=== PATIENT | female | born 1955 | race Caucasian/White ===

== ENCOUNTER → 2018-07-02 10:13 | Outpatient (CLI) | payer OTHER, SELFPAY ==
[2018-07-02 11:55] LABS: ALB/GLOB Ratio 0.9 RATIO (0.9-2.4); AST(SGOT) 22 U/L (15-37); Alanine Aminotransfer ALT/SGPT 24 U/L (13-56); Albumin, Serum 3.4 g/dL (3.2-5.0); Alkaline Phosphatase 51 U/L (45-117); Anion Gap 7 (5-15); BUN 18 mg/dL (7-18); BUN/Creat Ratio 22.8 RATIO (10-20); Chloride 102 mmol/L (98-107); Cholesterol 277 mg/dL (200); Creatinine, Serum 0.79 mg/dL (0.55-1.02); EST Glomerular Filtration Rate 78 mL/min (>60); Est Glom Filt Rate - Afr Amer 94 mL/min (>60); Globulin 3.8 g/dL (2.2-4.2); Glucose 93 mg/dL (74-106); High Density Lipoprotein 70 mg/dL; Potassium 3.7 mmol/L (3.5-5.1); Protein, Total 7.2 g/dL (6.4-8.2); Sodium Level 140 mmol/L (136-145); Triglycerides 112 mg/dL; Very Low Density Lipoprotein 22 mg/dL (5-40)
== END ==
PROVIDERS: Family Provider Family Medicine; PCP Family Medicine; Visit Provider Family Medicine
DX: I10 Essential (primary) hypertension (principal)
CPT/HCPCS: 36415; 80053; 80061

== ENCOUNTER → 2019-03-11 | Outpatient (CLI) | payer OTHER, SELFPAY ==
[2019-03-11 09:36] VITALS: BMI 34.4
[2019-03-11 12:56] LABS: AST(SGOT) 20 U/L (15-37); Alanine Aminotransfer ALT/SGPT 26 U/L (13-56); Albumin, Serum 3.5 g/dL (3.2-5.0); Alkaline Phosphatase 49 U/L (45-117); Anion Gap 6 (5-15); BUN 16 mg/dL (7-18); BUN/Creat Ratio 23.2 RATIO (10-20); Calcium,Total 9.4 mg/dL (8.5-10.1); Chloride 102 mmol/L (98-107); Cholesterol 255 mg/dL (200); Creatinine, Serum 0.69 mg/dL (0.55-1.02); EST Glomerular Filtration Rate 91 mL/min (>60); Est Glom Filt Rate - Afr Amer 110 mL/min (>60); Globulin 3.6 g/dL (2.2-4.2); Glucose 100 mg/dL (74-106); High Density Lipoprotein 69 mg/dL; Potassium 3.5 mmol/L (3.5-5.1); Protein, Total 7.1 g/dL (6.4-8.2); Sodium Level 139 mmol/L (136-145); Triglycerides 134 mg/dL; Very Low Density Lipoprotein 27 mg/dL (5-40)
[2019-03-14 12:49] LABS: HPV Reflexed? NOT INDICATED
== END | disposition home or self-care (01) ==
LOC: BIMLAB 10:06
PROVIDERS: Family Provider Family Medicine; PCP Family Medicine; Visit Provider Family Medicine
DX: I10 Essential (primary) hypertension (principal); Z01.419 Encounter for gynecological examination (general) (routine) without abnormal findings
CPT/HCPCS: 36415; 80053; 80061; 88175; G0145

== ENCOUNTER → 2019-04-02 | Outpatient (CLI) | payer OTHER, SELFPAY ==
[2019-03-11 09:36] VITALS: BMI 34.4
[2019-03-20 10:37] VITALS: BMI 33.3
--- NOTE | 2019-04-02 07:06 | BI_ITS ---
MAMMOGRAPHY - BILATERAL SCREENING REASON FOR EXAM: Female, 63 years old. Routine annual screening examination. PERTINENT HISTORY: Non-contributory. Remote right stereotactic breast biopsy. TECHNIQUE: Digital bilateral breast juan daniel (3D mammographic acquisition) in the CC and MLO projections. 2-D mediolateral oblique (MLO) and craniocaudad (CC) views of both breasts were obtained. CAD: Full Field Digital Mammography with Computer Added Detection was performed. COMPARISON: Comparison is made with prior outside examination dated August 06, 2017. FINDINGS: Breast Composition: The breasts are heterogeneously dense, which may obscure small masses. There are no dominant masses or suspicious calcifications. Stable scattered microcalcifications. No focal cluster is seen. A tissue clip marker is seen in the right breast. No other significant abnormalities are identified. BI/SCREEN MAMM (CAD) W/JUAN DANIEL BILAT IMPRESSION: Stable bilateral screening mammogram. Yearly follow-up mammogram recommended. (A) ASSESSMENT CATEGORY: BIRADS Category 2: Benign. A letter regarding these results will be sent to the patient by the facility within 30 days. Approximately 10% of breast cancers are not detected by mammography. A normal mammogram should not delay biopsy of a clinically suspicious abnormality. [id number] Electronically Signed: Dale Danielson, at 8:41 EDT , Service support ,
== END | disposition home or self-care (01) ==
PROVIDERS: Family Provider Family Medicine; PCP Family Medicine; Referring Provider Family Medicine; Visit Provider Family Medicine
DX: Z12.31 Encounter for screening mammogram for malignant neoplasm of breast (principal)
CPT/HCPCS: 77063; 77067

== ENCOUNTER 2019-04-15 07:25 | Day surgery (SDC) | payer OTHER, SELFPAY ==
[2019-03-20 10:37] VITALS: BMI 33.3
--- NOTE | 2019-03-20 10:48 | HP_ITS ---
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 Required: No Is patient in pain?: Yes (lower abdomen cramping) Pain scale (1-10): 2 Allergies No Known Allergies Allergy (Unverified 03/20/19 10:40) Medications lisinopril 20 mg-hydrochlorothiazide 12.5 mg tablet 1 tab PO QDAY #90 tab 03/11/19 [Rx Confirmed 03/20/19] tolterodine ER 4 mg capsule,extended release 24 hr 8 mg PO QDAY #180 cap 03/11/19 [Rx Confirmed 03/20/19] PFSH Medical History Mitral valve prolapse (Chronic) Chronic headaches (Chronic) Back problem (Chronic) Anemia (Chronic) Arthritis (Chronic) Hypertension (Chronic) Surgical History History of excision of pilonidal cyst (Acute) History of orthopedic surgery (Acute) Family History Father Prostate cancer Hypertension Mother Diabetes Colon cancer Hypertension Osteoarthritis Grandfather Heart disease Sister Lupus Fibromyalgia Social History Smoking Status: Never smoker alcohol intake: never substance use type: does not use what type of physical activity do you participate in: walking frequency: 3-4 times per week HPI HPI HPI: KATHY URIAS, is a 63 F who presents to the office today for HPI HPI Surgical H&P: Yes HPI: KATHY URIAS, is a 63 F who presents to the office today for screening colonoscopy. Patient states her last colonoscopy was in 2003 and it was negative. Patient's mother was diagnosed with colon cancer age 60. Patient states she has daily bowel movements states she only rarely has any minimal blood with wiping on toilet paper with her hemorrhoids. She states she also has been having some intermittent abdominal lower abdomen cramping which occurs several times a week may last for a couple of hours is only a 1?2/10 as far as discomfort, denies having the pain related to bowel movements or food. States she has had this for about the last 6 months. Patient has seen her [employer] STAFF has had a Pap smear which patient states is normal. Patient states she did have a history of colitis and states she had a stay away from CABG etc. for a little while but that was long time ago she had no issues since. Exam Const General: cooperative, comfortable, no acute distress Resp Effort & Inspection: normal respiratory effort Cardio Rate: regular rate GI Inspection: non-distended Palpation: soft, no guarding, nontender Assessment & Plan Problems 1. FH: colon cancer Z80.0 M dx age 59 Plan I have discussed the above with the patient. I have offered the patient colonoscopy for evaluation. I have explained the risks/benefits of the procedure and described the procedure. I have discussed the risks with the patient, including but not limited to: infection, bleeding, perforation of the GI tract requiring emergency surgery, inability to complete the procedure, injury to any internal organs, complications of anesthesia, etc. - the patient understands and agrees to proceed. I have answered all the patient's questions to the patient's satisfaction and the patient has no further questions. The patient has been given instructions for the colon cleansing preparation. 1 day MiraLAX Dulcolax split prep Lurdes Cormier M.D. Pager: [phone] [facility] [address] [place] [address], [facility], [address] [place] [address] Office: [phone] Orders Orders: Colonoscopy Today Plan Detail Follow Up We will schedule colonoscopy Coding Level of Care Code Off vis,new,level 3 Diagnoses FH: colon cancer Z80.0 03/20/19 1048 <Electronically signed by Lurdes Cano am, MD> Date _ Lurdes Cormier MD I have examined the patient the following changes are noted: Patient denies any abdominal pain or change of bowel movements since seen in the office.
[2019-04-15 07:41] VITALS: BP 156/82; PULSE 80; RESP 18; TEMP 36.7; O2SAT 99; BMI 33.6
[2019-04-15 08:41] VITALS: BP 130/61; BP 156/82; PULSE 73; RESP 16; TEMP 36.4; O2SAT 98
--- NOTE | 2019-04-15 08:43 | OP.ENDO_ITS ---
04/15/2019 Lex Mdasen Re : Colonoscopy procedure for Lyssa Vasquez Dear Dr. Madsen This procedure was performed on Monday, April 15, 2019. My impressions and recommendations are as follows: Impressions : - Hemorrhoids found on perianal exam. - Diverticulosis in the sigmoid colon. - External and internal hemorrhoids. - The examination was otherwise normal. - No specimens collected. Recommendations : - Discharge patient to home. - High fiber diet. - Continue present medications. - Repeat colonoscopy in 5 years for screening purposes due to FH of colon cancer- Mother at age 60. My findings are described in the full procedure note, which is enclosed. If I can be of further assistance, please feel free to contact me at Doctor phone number(s): , Work: . Sincerely, MD Lurdes Carrillo MD 04/15/2019 8:42:59 AM This report has been signed electronically.
[2019-04-15 08:45] VITALS: BP 137/66; BP 156/82; PULSE 72; RESP 16; O2SAT 99
[2019-04-15 08:50] VITALS: BP 133/75; BP 156/82; PULSE 70; RESP 16; O2SAT 98
[2019-04-15 08:58] VITALS: BP 138/79; BP 156/82; PULSE 69; RESP 16; TEMP 36.6; O2SAT 97
[2019-04-15 09:12] VITALS: BP 156/82
== END 2019-04-15 09:22 | disposition home or self-care (01) ==
LOC: EN 07:26 → AC 07:28
PROVIDERS: Family Provider Family Medicine; PCP Family Medicine; Referring Provider Family Medicine; Visit Provider Surgery
PROC: 0DJD8ZZ Inspection of Lower Intestinal Tract, Via Natural or Artificial Opening Endoscopic (ICD-10-PCS; CPT 45378; principal; 2019-04-15 08:40)
DX: Z12.11 Encounter for screening for malignant neoplasm of colon (principal); K64.0 First degree hemorrhoids; K64.4 Residual hemorrhoidal skin tags; K57.30 Diverticulosis of large intestine without perforation or abscess without bleeding; I10 Essential (primary) hypertension; M19.90 Unspecified osteoarthritis, unspecified site; Z80.0 Family history of malignant neoplasm of digestive organs; Z79.899 Other long term (current) drug therapy
CPT/HCPCS: 45378; J7120; A4216

== ENCOUNTER → 2020-04-05 | Outpatient (CLI) | payer MEDICARE, OTHER, SELFPAY ==
[2020-03-30 15:39] VITALS: BMI 33.6
[2020-04-05 13:18] LABS: ALB/GLOB Ratio 0.9 RATIO (0.9-2.4); AST(SGOT) 22 U/L (15-37); Alanine Aminotransfer ALT/SGPT 28 U/L (13-56); Albumin, Serum 3.4 g/dL (3.2-5.0); Alkaline Phosphatase 52 U/L (45-117); Anion Gap 6 (5-15); BUN 18 mg/dL (7-18); Calcium,Total 9.1 mg/dL (8.5-10.1); Chloride 102 mmol/L (98-107); Cholesterol 258 mg/dL (200); Creatinine, Serum 0.72 mg/dL (0.55-1.02); EST Glomerular Filtration Rate 86 mL/min (>60); Est Glom Filt Rate - Afr Amer 105 mL/min (>60); Globulin 3.6 g/dL (2.2-4.2); Glucose 101 mg/dL (74-106); High Density Lipoprotein 68 mg/dL; Potassium 3.4 mmol/L (3.5-5.1); Sodium Level 139 mmol/L (136-145); Triglycerides 89 mg/dL; Very Low Density Lipoprotein 18 mg/dL (5-40)
== END | disposition home or self-care (01) ==
LOC: EPLAB 08:58 → BIMLAB 11:53
PROVIDERS: PCP Family Medicine; Visit Provider Family Medicine
DX: I10 Essential (primary) hypertension (principal)
CPT/HCPCS: 36415; 80053; 80061

== ENCOUNTER → 2020-04-18 | Outpatient (CLI) | payer MEDICARE, OTHER, SELFPAY ==
[2020-03-30 15:39] VITALS: BMI 33.6
--- NOTE | 2020-04-18 11:41 | STRESSREP ---
Stress Test Report Exercise stress test. 64-year-old lady with a history of chest pain. Stress protocol: Resting EKG demonstrates normal sinus rhythm with a rate of 81 bpm normal intervals are noted resting blood pressure is 160/90 mmHg. The patient exercised according to regular Bill protocol for a total duration of 5 minutes. Patient completed 2 minutes into stage II of the Bill protocol. The maximum heart rate attained was 153 bpm which was 98% of maximum predicted heart rate the maximum workload was 7 metabolic equivalents. At rest there were no ST or T wave changes noted suggest ischemia peak exercise nonspecific ST-T wave changes were noted. No clinical angina was noted. The resting blood pressure was 160/90 with a peak blood pressure of 220/94 mmHg. The test was terminated due to dyspnea as well as elevated blood pressure. Conclusion: Exercise stress test with no EKG criteria for ischemia at a moderate workload. Good functional capacity. Hypertensive response to exercise.
== END | disposition home or self-care (01) ==
LOC: CVS 08:44
PROVIDERS: PCP Family Medicine; Referring Provider Family Medicine; Visit Provider Family Medicine
DX: R06.00 Dyspnea, unspecified (principal); R06.02 Shortness of breath
CPT/HCPCS: 93017

== ENCOUNTER → 2021-03-24 08:06 | Outpatient (CLI) | payer MEDICARE, OTHER, SELFPAY ==
[2021-03-08 16:08] VITALS: BMI 33.5
[2021-03-24 12:49] LABS: Anion Gap 5 (5-15); BUN 16 mg/dL (7-18); BUN/Creat Ratio 23.3 RATIO (10-20); Calcium,Total 9.2 mg/dL (8.5-10.1); Chloride 103 mmol/L (98-107); Creatinine, Serum 0.69 mg/dL (0.55-1.02); EST Glomerular Filtration Rate 91 mL/min (>60); Est Glom Filt Rate - Afr Amer 110 mL/min (>60); Glucose 105 mg/dL (74-106); Potassium 3.6 mmol/L (3.5-5.1); Sodium Level 140 mmol/L (136-145)
== END ==
PROVIDERS: PCP Family Medicine; Visit Provider Family Medicine
DX: I10 Essential (primary) hypertension (principal)
CPT/HCPCS: 36415; 80048

== ENCOUNTER → 2022-03-06 | Outpatient (CLI) | payer MEDICARE, SELFPAY ==
[2022-03-06 15:43] LABS: ALB/GLOB Ratio 1.1 RATIO (0.9-2.4); AST(SGOT) 24 U/L (15-37); Alanine Aminotransfer ALT/SGPT 27 U/L (13-56); Albumin, Serum 3.5 g/dL (3.2-5.0); Alkaline Phosphatase 43 U/L (45-117); Anion Gap 7 (5-15); BUN 17 mg/dL (7-18); BUN/Creat Ratio 22.1 RATIO (10-20); Calcium,Total 9.4 mg/dL (8.5-10.1); Chloride 99 mmol/L (98-107); Creatinine, Serum 0.77 mg/dL (0.55-1.02); EST Glomerular Filtration Rate 79 mL/min (>60); Est Glom Filt Rate - Afr Amer 96 mL/min (>60); Globulin 3.2 g/dL (2.2-4.2); Glucose 106 mg/dL (74-106); Protein, Total 6.7 g/dL (6.4-8.2); Sodium Level 137 mmol/L (136-145)
== END | disposition home or self-care (01) ==
LOC: BIMLAB 12:04
PROVIDERS: PCP Family Medicine; Referring Provider Family Medicine; Visit Provider Family Medicine
DX: I10 Essential (primary) hypertension (principal)
CPT/HCPCS: 36415; 80053

== ENCOUNTER → 2022-04-17 | Outpatient (CLI) | payer MEDICARE, SELFPAY ==
[2022-04-17 12:34] LABS: Anion Gap 7 (5-15); BUN 15 mg/dL (7-18); BUN/Creat Ratio 23.7 RATIO (10-20); Calcium,Total 9.1 mg/dL (8.5-10.1); Chloride 102 mmol/L (98-107); Creatinine, Serum 0.63 mg/dL (0.55-1.02); EST Glomerular Filtration Rate 99 mL/min (>60); Est Glom Filt Rate - Afr Amer 120 mL/min (>60); Glucose 105 mg/dL (74-106); Potassium 3.5 mmol/L (3.5-5.1); Sodium Level 140 mmol/L (136-145)
== END | disposition home or self-care (01) ==
LOC: BIMLAB 09:12
PROVIDERS: PCP Family Medicine; Referring Provider Family Medicine; Visit Provider Family Medicine
DX: E87.6 Hypokalemia (principal)
CPT/HCPCS: 36415; 80048

== ENCOUNTER → 2022-12-19 | Outpatient (CLI) | payer MEDICARE, SELFPAY ==
--- NOTE | 2022-12-19 14:30 | US_ITS ---
EXAM: US PELVIS TRANSVAGINAL CLINICAL INDICATION: PMB TECHNIQUE: Transvaginal pelvic ultrasound was performed with grayscale and color Doppler imaging. Transvaginal imaging was used for better evaluation of the endometrium and adnexa. This report was created using [employer] report [employer] technology. COMPARISON: None. FINDINGS: UTERUS/CERVIX: Endometrial echo inferiorly is echogenic with shadowing suggesting calcification. Overall the endometrial echo is poorly visualized. Anteverted. The uterus measures 8.2 x 5.9 x 4.4 cm. No discrete uterine mass is identified. RIGHT OVARY: Right ovary was not visualized. LEFT OVARY: The left ovary was not visualized. FREE FLUID: None. BLADDER: Empty bladder which cannot be evaluated with this probe. US/Transvaginal Non- IMPRESSION: Question of endometrial calcification. No gross mass is identified but the endometrium was poorly evaluated. Consider MR for further evaluation. Electronically Signed: Julius Calloway MD at 0:41 EST ,
== END | disposition home or self-care (01) ==
PROVIDERS: PCP Family Medicine; Referring Provider Family Medicine; Visit Provider Family Medicine
DX: N95.0 Postmenopausal bleeding (principal)
CPT/HCPCS: 76830

== ENCOUNTER → 2023-01-29 | Outpatient (CLI) | payer MEDICARE, SELFPAY ==
--- NOTE | 2023-01-29 15:00 | EMB_PTH ---
PATIENT: KATHY URIAS LOC: [facility] U#:[id number] AGE/SX: 67/F ROOM: RE01/29/[address]: Dr. Samantha Arango DO : 1955 BED: DIS: 01/29/2023 SPEC #: [id number] RECD: 01/29/23 16:16 STATUS: EREN BENITEZ #: [id number] TERESA: 01/29/23 15:[address]: Samantha Arango DEPT: SURGICAL PATHOLOGY RECD BY: Dhiraj Garces ENTERED: 01/30/23 11:34 SP TYPE: ENDOM BX/C OTHR DR: Dr. Lex Madsen DO Tissues: Endometrium, NOS Procedures: Surgery Specimen Level IV HEADER OPERATION: Endometrial biopsy PRE-OP DIAGNOSIS: Postmenopausal bleeding TISSUE SUBMITTED: Endometrial lining. MICROSCOPIC DIAGNOSIS Endometrium, biopsy: Simple and focal complex hyperplasia without atypia. Extensive squamous morular metaplasia. AM:luke 01/31/2023 COMMENT Endometrial curettings may be performed if clinically indicated. Case has been reviewed in consultation with Dr. Riggs who concurs with the above diagnosis. IDC:[email or web address] MICROSCOPIC DESCRIPTION Slides are reviewed. GROSS DESCRIPTION Received is one container labeled with the patient's name and not further designated. The specimen consists of multiple fragments of hemorrhagic soft tissue mixed with mucoid tissue that in aggregate measure 2.0 x 0.5 x 0.1 cm. The specimen is totally submitted in one cassette. / JOSUE:luke 01/30/2023 TC:5 CPT: 67107
[2023-02-05 11:17] LABS: HPV APTIMA, High Risk Negative (Negative)
== END | disposition home or self-care (01) ==
LOC: LABSPEC 16:45
PROVIDERS: PCP Family Medicine; Referring Provider Obstetrics & Gynecology; Visit Provider Obstetrics & Gynecology
DX: Z12.4 Encounter for screening for malignant neoplasm of cervix (principal); N95.0 Postmenopausal bleeding; N85.01 Benign endometrial hyperplasia
CPT/HCPCS: 87624; 88175; 88305; G0145

== ENCOUNTER → 2023-01-30 | Outpatient (CLI) | payer MEDICARE, SELFPAY ==
--- NOTE | 2023-01-30 13:23 | BI_ITS ---
MAMMOGRAPHY - BILATERAL SCREENING 3-D TOMOSYNTHESIS REASON FOR EXAM: Female, 67 years old. Routine screening PERTINENT HISTORY: No significant family history. TECHNIQUE: 2-D mammograms and 3-D Tomosynthesis of the breast (s) were performed. CAD was performed. COMPARISON: 04/02/2019 FINDINGS: The breast composition is heterogeneously dense that can obscure small breast masses. Scattered benign calcifications are seen. No dense spiculated masses or suspicious microcalcifications are identified. No architectural distortion is identified. There is no skin thickening or retraction. There has been no significant change since the prior study. BI/SCRN MAMM (CAD)W/JUAN DANIEL BILAT IMPRESSION: No mammographic signs of malignancy. Routine yearly mammograms recommended. ASSESSMENT CATEGORY: BIRADS Category 2: Benign. A letter regarding these results will be sent to the patient by the facility within 30 days. FOLLOW UP RECOMMENDATION: Yearly follow up mammogram recommended. (A) Approximately 10% of breast cancers are not detected by mammography. A normal mammogram should not delay biopsy of a clinically suspicious abnormality. Electronically Signed: Ivan Prescott MD at 14:24 EDT ,
== END | disposition home or self-care (01) ==
LOC: OPBI 13:22
PROVIDERS: PCP Family Medicine; Referring Provider Internal Medicine; Visit Provider Internal Medicine
DX: Z12.31 Encounter for screening mammogram for malignant neoplasm of breast (principal)
CPT/HCPCS: 77063; 77067

== ENCOUNTER 2023-02-11 13:47 | Emergency (ER) | payer MEDICARE, SELFPAY ==
[2023-02-11 13:47] VITALS: BP 180/86; PULSE 96; RESP 18; TEMP 36.1; O2SAT 98; BMI 33.3
--- NOTE | 2023-02-11 13:56 | CT_ITS ---
STUDY: CT Abdomen And Pelvis W/ Contrast Injection 02/11/2023 4:27 PM REASON FOR EXAM: Female, 67 years old. Abdominal pain Crampy left lower quad pain greater than right -- Recent diagnosis and the material/uterine cancer Individualized dose optimization techniques were used for this CT. COMPARISON: 05.17.14. TECHNIQUE: CT Abdomen And Pelvis W/ Contrast Injection IV 100mL [id number]-300 FINDINGS: There are atherosclerotic calcifications of visualized coronary arteries. The visualized portions of the heart are within normal limits. Normal liver. Normal gallbladder and extrahepatic biliary system. Normal spleen. Normal pancreas. Normal bilateral adrenal glands. No acute findings of the right kidney. No acute findings of the left kidney. Normal visualized stomach. Normal small intestine. There are multiple colonic diverticula consistent with diverticulosis. There is non-visualization of the appendix. There are calcifications of the abdominal aorta. This is consistent for atherosclerotic disease. There is NO abdominal aortic aneurysm. Vascular workup can be obtained based on clinical correlation. Normal inferior vena cava. Subcentimeter mesenteric lymph nodes. Normal urinary bladder. Free fluid in the pelvis. Abnormal fluid-filled endometrium. Endometrial lining measures 38 mm. There is an umbilical hernia containing fat. Normal osseous structures. CT/Abdomen/Pelvis W IV Cont ONLY IMPRESSION: (NOT LISTED IN ORDER OF SIGNIFICANCE) Abnormal fluid-filled endometrium. This is concerning for neoplasm. Free fluid in the pelvis. Other findings as above. Electronically Signed: Arsalan Ponce MD at 16:31 EDT ,
--- NOTE | 2023-02-11 14:02 | EX.ED.DYSGE1 ---
HPI History of Present Illness Chief Complaint: Abd Pain Detail of Chief Complaint: Left greater than right lower quadrant pain Informant: patient Onset/Context/Timing Onset: Weeks (Approximately 2 weeks ago) Context: Sudden Onset Timing: Continuous and Waxes and wanes Quality: Crampy Location: Right and left lower quadrant Current Severity: Mild Maximum Severity: Moderate Worsened by: Ingestion of anything Relieved by: Nothing Associated Symptoms Associated Symptoms: Occasional nausea Narrative Narrative: Patient is a 67-year-old woman with history of diverticulosis diagnosed 4 years ago and recent diagnosis of extensive squamous Miguel metaplasia who presents with bilateral lower quadrant abdominal pain worse on the left since biopsy. She does document temperature of 102 on of last week and 104 on Saturday of last week. Patient reports constant pain since onset that is worse with ingestion of anything. She denies dysuria, frequency, urgency or hematuria. Reason for endometrial biopsy was postmenopausal bleeding. She denies low back pain or flank pain. She has had no abdominal surgery. She denies cardiac or respiratory symptoms. Prior similar symptoms: No Recent Illness/Hospitalization: Yes PFSH PFSH Medical History Anemia Arthritis Back problem Chronic headaches Hypertension Mitral valve prolapse Home Medications lisinopril 20 mg-hydrochlorothiazide 12.5 mg tablet 1 tab PO QDAY #90 tabs 03/06/22 [Rx Last Taken Unknown] tolterodine 4 mg capsule,extended release 24 hr (Detrol LA) 8 mg PO QDAY #180 caps 03/06/22 [Rx Last Taken Unknown] hydrocodone-acetaminophen 5-325mg 5mg-325mg 1 tab PO Q6H PRN PRN Pain 5 days #20 TABLETS 02/11/23 [Rx Last Taken Unknown] Allergy/AdvReac Type Severity Reaction Status Date / Time No Known Allergies Allergy Verified 02/11/23 13:49 Family History Father Prostate cancer Hypertension Mother Diabetes Colon cancer Hypertension Osteoarthritis Grandfather Heart disease Sister Lupus Fibromyalgia Surgical History History of excision of pilonidal cyst History of orthopedic surgery Social History Smoking Status: Never smoker alcohol intake: never substance use type: does not use caffeine: Yes what type of physical activity do you participate in: walking frequency: 3-4 times per week seatbelt use: always do you feel safe at home: Yes additional social history: -Dony ROS ROS ED Constitutional Constitutional ED: Reports fever(s); Denies chills, subjective, sweats or weight loss Eyes Eyes: Denies blurry vision, change in vision or diplopia ENT ENT ED: Denies ear pain or rhinorrhea Cardiovascular Cardiovascular: Denies chest pain or palpitations Respiratory/Chest Respiratory/Chest: Denies cough, dyspnea or dyspnea on exertion Gastrointestinal Gastrointestinal: Reports abdominal pain and nausea; Denies constipation, diarrhea, melena or vomiting Genitourinary Genitourinary ED: Denies dysuria, hematuria or urinary frequency Musculoskeletal Musculoskeletal: Denies arthralgias, back pain, myalgias or neck pain Integumentary Denies abscess, Abrasions or rash Neurologic Neurologic: Denies headache(s), paresthesias or weakness Psychiatric Psychiatric: Denies anxiety or depression Endocrine Endocrinology: Denies cold intolerance or heat intolerance Hematologic/Lymphatic Hematologic/Lymphatic: Reports systems reviewed and no addt'l complaints, except as documented Allergic/Immunologic Allergic/Immunologic ED: Denies mouth swelling or tongue swelling EXAM Physical Exam Const Vital Signs: 02/11/23 13:47 02/11/23 17:23 Temperature 96.9 F L Temperature Source Temporal Pulse Rate 96 87 Respiratory Rate 18 16 Blood Pressure 180/86 H 167/84 H Blood Pressure Mean 117 111 Pulse Ox 98 99 Positive well nourished, well developed and obese General Appearance ED: well developed and NAD; Negative for cyanotic, diaphoretic or pallor Nutritional Appearance: obese HEENT Reports moist mucous membranes HEENT Narrative: Head is atraumatic no cephalic. Ears normal. Nares patent. Mucosa is moist. Eyes PERRL and EOMs intact bilaterally General Eye ED: Negative for pale conjunctiva or scleral icterus Chest Wall inspection of chest normal Resp normal respiratory effort and clear to auscultation bilaterally Cardio regular rate, regular rhythm, S1 normal heart sound, S2 normal heart sound and no murmurs GI normal to inspection, nondistended, normoactive bowel sounds, non-distended and no masses; Negative for non-tender or hepatosplenomegaly Auscultation: hypoactive bowel sounds Palpation: soft and tender LLQ Back/Spine no CVA tenderness Extremity normal to inspection General Extremety ED: Negative for edema or tenderness General Extremity: Negative for edema Neuro oriented x3, CN's II-XII intact bilaterally and no sensory deficits noted Sensorium / Orientation: alert Skin no rashes or lesions noted, no wounds and skin turgor normal Skin Narrative: Patient is to hand. General Skin Exam: Negative for jaundice or pallor MDM MDM MDM Narrative Medical decision making narrative: With history of pain status post biopsy and history of diverticulosis with left lower quadrant pain greater than right need to evaluate for diverticular colitis as well as possible complication from uterine biopsy, which is less likely. This may be related to the metaplasia noted on the endometrial biopsy or the post menopausal bleeding. Since patient has not had recent blood work CBC and BMP were obtained. CT of the abdomen with IV contrast was ordered. Reviewed biopsy report submitted January 29. There is no recent reports noted. Patient does have history of diverticulosis that was documented approximately 4 to 5 years ago. Patient was offered pain medicine which she declined. Patient's blood pressure is elevated will monitor since she is asymptomatic. History & Record Review Additional record(s) reviewed:: Prior outpatient record and Prior labs Lab Data Attestation: I reviewed the patient's lab results. Lab results narrative: CBC is unremarkable. Sodium is 129 with potassium of 2.8 and chloride 93. Patient is not on a diuretic. Creatinine 0.6 with a GFR of 106. UA is unremarkable. Since she is not on a diuretic and has hyponatremia with history of cancer will obtain urine and serum osmolarity. Lactic is normal. Labs: Laboratory Results - last 24 hr 02/11/23 02/11/23 02/11/23 14:20 14:20 14:20 WBC 8.7 RBC 4.43 Hgb 12.5 Hct 36.8 L MCV 83.1 MCH 28.2 MCHC 34.0 RDW Std Deviation 40.8 RDW Coeff of Tae 13.3 Plt Count 339 MPV 9.3 Immature Gran % (Auto) 0.300 Neut % (Auto) 65.1 Lymph % (Auto) 25.4 Bollinger % (Auto) 8.3 Eos % (Auto) 0.3 Baso % (Auto) 0.6 Absolute Neuts (auto) 5.7 Absolute Lymphs (auto) 2.21 Nucleated RBC % 0 Sodium 129 L Potassium 2.8 L Chloride 93 L Carbon Dioxide 32.0 Anion Gap 4 L BUN 12 Creatinine 0.60 Estim Creat Clear Calc 50.41 Est GFR (MDRD) Af Amer 128 Est GFR (MDRD) Non-Af 106 BUN/Creatinine Ratio 20.1 H Glucose 96 Lactic Acid 0.9 Calcium 9.0 Urine Color Urine Clarity Urine pH Ur Specific Closplint Urine Protein Urine Glucose (UA) Urine Ketones Urine Occult Blood Urine Nitrite Urine Bilirubin Urine Urobilinogen Ur Leukocyte Esterase Urine RBC Urine WBC Ur Squamous Epith Cells Urine Bacteria Urine Mucus 02/11/23 14:30 WBC RBC Hgb Hct MCV MCH MCHC RDW Std Deviation RDW Coeff of Tae Plt Count MPV Immature Gran % (Auto) Neut % (Auto) Lymph % (Auto) Bollinger % (Auto) Eos % (Auto) Baso % (Auto) Absolute Neuts (auto) Absolute Lymphs (auto) Nucleated RBC % Sodium Potassium Chloride Carbon Dioxide Anion Gap BUN Creatinine Estim Creat Clear Calc Est GFR (MDRD) Af Amer Est GFR (MDRD) Non-Af BUN/Creatinine Ratio Glucose Lactic Acid Calcium Urine Color Yellow Urine Clarity Sl. Cloudy Urine pH 7.0 Ur Specific Closplint 1.005 Urine Protein Negative Urine Glucose (UA) Normal Urine Ketones Negative Urine Occult Blood 10 H Urine Nitrite Negative Urine Bilirubin Negative Urine Urobilinogen Normal Ur Leukocyte Esterase 25 H Urine RBC 0-5 SEEN Urine WBC 0-5 SEEN Ur Squamous Epith Cells 0-5 SEEN Urine Bacteria 0 SEEN Urine Mucus 0 SEEN Radiography Diagnostic Testing: Clinical Impression(s) from Imaging Studies Abdomen/Pelvis CT 02/11/23 13:56 IMPRESSION: (NOT LISTED IN ORDER OF SIGNIFICANCE) Abnormal fluid-filled endometrium. This is concerning for neoplasm. Free fluid in the pelvis. Other findings as above. Electronically Signed: Arsalan Ponce MD at 16:31 EDT , Treatment and Re-Evaluation :: Case discussed with Dr. Ritu Turner on-call for Dr. Samantha Anton. She will contact Dr. Quintanilla and Alejandro Harding to get patient seen sooner. Discharge Plan Triage Chief Complaint: Abd Pain ED Provider: Zechariah Gomez Dx/Rx/DC Orders Clinical Impression: Acute pelvic pain, female, Abnormal endometrial ultrasound, Acute hyponatremia Instructions: ED Pelvic Pain, Unknown Cause Prescriptions: New hydrocodone-acetaminophen [hydrocodone-acetaminophen] 5-325 mg tablet 1 tab PO Q6H PRN PRN (Reason: Pain) 5 Days Qty: 20 0RF No Action lisinopril-hydrochlorothiazide 20-12.5 mg tablet 1 tab PO QDAY Qty: 90 3RF tolterodine [Detrol LA] 4 mg capsule,extended release 24hr 8 mg PO QDAY Qty: 180 3RF Primary Care Provider: Lex Madsen Referrals: Lex Madsen, [Primary Care Provider] - Disposition Disposition: Home, Self Care
[2023-02-11 14:39] LABS: Bacteria 0 SEEN /hpf (None Seen); Mucous, Urine 0 SEEN /hpf (<or=2+)
[2023-02-11 14:43] LABS: Absolute Lymphocyte Count 2.21 X10^3/uL (0.83-4.51); Absolute Neutrophil Count 5.7 X10^3/uL (2.0-7.7); Basophil# 0.05 X10^3/uL; Basophil% 0.6 % (0-1); Eosinophil# 0.03 X10^3/uL; Eosinophils% 0.3 % (0-5); Hematocrit 36.8 % (37-47); Hemoglobin 12.5 g/dL (12.0-15.0); Lymphocyte # 2.21 X10^3/ul (0.83-4.51); Lymphocyte % 25.4 % (19-41); Mean Corpuscular Hgb 28.2 pg (27.0-32.0); Mean Corpuscular Volume 83.1 fL (81-99); Mean Platelet Vol. 9.3 fl (6.2-12.0); Monocyte# 0.72 X10^3/uL; Monocyte% 8.3 % (0-10); NRBC Flagged by Analyzer 0 % (0-5); Neutrophil # 5.65 X10^3/uL (2.7-7.7); Neutrophil % 65.1 % (47-70); Platelet Count 339 K/mm3 (150-450); RBC Distribution Width CV 13.3 % (11.6-14.6); RBC Distribution Width SD 40.8 fl (35.1-43.9); Red Blood Count 4.43 M/mm3 (4.2-5.4); White Blood Count 8.7 K/mm3 (4.4-11.0)
[2023-02-11] MEDS: 0.9% Normal Saline 1,000 ML 125 ML IV (14:50)
[2023-02-11 14:51] LABS: Color, Urine Yellow (Yellow); Glucose, Dipstick Normal (Normal); Ketone-Dipstick Negative (Negative); Leukocyte Esterase-Dipstick 25 /ul (Negative); Nitrite-Dipstick Negative (Negative); Occult Blood-Urine 10 /ul (Negative); Protein-Dipstick Negative (Negative); Specific Gravity, Urine 1.005 (1.002-1.030); Urine Bilirubin Dipstick Negative (Negative); Urine Clarity Sl. Cloudy (Clear); Urine Urobilinogen Normal (Normal)
[2023-02-11 14:56] LABS: Anion Gap 4 (5-15); BUN 12 mg/dL (7-18); BUN/Creat Ratio 20.1 RATIO (10-20); Chloride 93 mmol/L (98-107); EST Glomerular Filtration Rate 106 mL/min (>60); Est Glom Filt Rate - Afr Amer 128 mL/min (>60); Estimated Creatinine Clearance 50.41 ml/min; Glucose 96 mg/dL (74-106); Potassium 2.8 mmol/L (3.5-5.1); Sodium Level 129 mmol/L (136-145)
[2023-02-11 14:58] LABS: Red Blood Cells-Urine 0-5 SEEN /hpf (0-5); Squamous Epithelial Cells - UA 0-5 SEEN /hpf (5-10); White Blood Cells 0-5 SEEN /hpf (0-5)
[2023-02-11 15:08] LABS: Lactic Acid 0.9 mmol/L (0.4-1.9)
[2023-02-11 17:23] VITALS: BP 167/84; PULSE 87; RESP 16; O2SAT 99
[2023-02-11 17:28] LABS: Osmolality, Serum 279 mOsm/KG (280-301)
[2023-02-11 18:54] LABS: Osmolality, Urine 172 mOsm/KG
== END 2023-02-11 17:42 | disposition home or self-care (01) ==
PROVIDERS: Emergency Provider Emergency Medicine; PCP Family Medicine; Visit Provider Emergency Medicine
DX: R10.2 Pelvic and perineal pain (principal); E87.1 Hypo-osmolality and hyponatremia; I10 Essential (primary) hypertension; R11.0 Nausea; E66.9 Obesity, unspecified; R93.89 Abnormal findings on diagnostic imaging of other specified body structures
CPT/HCPCS: 74177; 80048; 81001; 83605; 83930; 83935; 85025; 96360; 96361; 99283; J7030; Q9967

== ENCOUNTER 2023-04-02 17:18 | Observation (INO) | payer MEDICARE, SELFPAY ==
--- NOTE | 2023-03-25 08:28 | EKG12_ITS ---
Test Reason : LAVH, BSO, CYSTOS Blood Pressure : / mmHG Vent. Rate : 081 BPM Atrial Rate : 081 BPM P-R Int : 150 ms QRS Dur : 090 ms QT Int : 376 ms P-R-T Axes : 005 016 044 degrees QTc Int : 436 ms Normal sinus rhythm Normal ECG No previous ECGs available Confirmed by JOHN FULTON, LUZ ([id number]), index editor RUTHIE DONALDSON ([id number]) on 03/28/2023 9:31:54 AM Referred By: Samantha Arango Confirmed By:LUZ LOPEZ MD
[2023-03-25 09:51] LABS: Hematocrit 38.5 % (37-47); Hemoglobin 12.2 g/dL (12.0-15.0); Mean Corp Hgb Conc 31.7 g/dL (32-36); Mean Corpuscular Hgb 27.6 pg (27.0-32.0); Mean Corpuscular Volume 87.1 fL (81-99); Mean Platelet Vol. 10.5 fl (6.2-12.0); Platelet Count 431 K/mm3 (150-450); RBC Distribution Width CV 14.1 % (11.6-14.6); RBC Distribution Width SD 45.4 fl (35.1-43.9); Red Blood Count 4.42 M/mm3 (4.2-5.4); White Blood Count 8.2 K/mm3 (4.4-11.0)
[2023-03-25 10:07] LABS: Partial Thromboplast Time 27.3 Seconds (24.1-36.2)
[2023-03-25 10:19] LABS: Magnesium 2.1 mg/dL (1.6-2.6)
[2023-03-25 10:28] LABS: AST(SGOT) 22 U/L (15-37); Alanine Aminotransfer ALT/SGPT 19 U/L (13-56); Albumin, Serum 3.4 g/dL (3.2-5.0); Alkaline Phosphatase 56 U/L (45-117); Anion Gap -4 (5-15); BUN 13 mg/dL (7-18); BUN/Creat Ratio 19.8 RATIO (10-20); Calcium,Total 9.3 mg/dL (8.5-10.1); Chloride 106 mmol/L (98-107); Creatinine, Serum 0.66 mg/dL (0.55-1.02); EST Glomerular Filtration Rate 95 mL/min (>60); Est Glom Filt Rate - Afr Amer 115 mL/min (>60); Globulin 3.5 g/dL (2.2-4.2); Glucose 108 mg/dL (74-106); Protein, Total 6.9 g/dL (6.4-8.2); Sodium Level 133 mmol/L (136-145)
[2023-03-28 04:07] LABS: Anti-Cardiolipin Ab, IgA, Qn < 9 APL U/mL (0-11); Anti-Cardiolipin Ab, IgG, Qn < 9 GPL U/mL (0-14); Anti-Cardiolipin Ab, IgM, Qn < 9 MPL U/mL (0-12); Beta-2-Glycoprotein I IgA <9 (0-25); Beta-2-Glycoprotein I IgG <9 (0-20); Beta-2-Glycoprotein I IgM <9 (0-32); Dilute Prothrombin Time (dPT) 32.7 sec (0.0-47.6); Dilute Russell Viper Venom 31.4 sec (0.0-47.0); Interpretation Comment: (.); Thrombin Time 16.5 sec (0.0-23.0); dPT Confirm Ratio 0.78 Ratio (0.00-1.34)
[2023-04-02] VITALS (16 sets, daily range): BP systolic 112–166; BP diastolic 60–84; PULSE 72–102; RESP 16–18; TEMP 36.3–36.8; O2SAT 92–100; BMI 32.1; BMI 15.5
[2023-04-02] MEDS: Lactated Ringers 1,000 ML 40 ML IV (08:57)
[2023-04-02] MEDS: Magnesium 1 GM over 15 mins IV (08:58)
[2023-04-02] MEDS: dexAMETHasone 4 MG/ML Vial 8 MG IV (08:59)
[2023-04-02] MEDS: Acetaminophen 500 MG Tablet 1000 MG PO ×2 (09:00→21:05)
[2023-04-02] MEDS: Celecoxib 200 MG Capsule 400 MG PO (09:00)
[2023-04-02] MEDS: Gabapentin 600 MG Tablet PO (09:01)
[2023-04-02] MEDS: Phenazopyridine 95 MG Tablet 190 MG PO (09:01)
[2023-04-02 09:33] LABS: Bedside Glucose 109 mg/dL (74-106)
--- NOTE | 2023-04-02 10:05 | PCM.HP.BLA ---
History and Physical Date of Admission: 04/02/23 Intake Vital Signs ? 02/11/2313:47 03/13/2308:38 03/13/2308:38 Height 5 ft 6 in 5 ft 6 in 5 ft 6 in Weight: 206 lb 3.2 oz 205 lb ? BMI 33.3 33.0 ? BP 180/86 H 173/85 H ? Respiration 18 ? ? Pulse 96 ? ? Temp 96.9 F L ? ? Pulse Oximetry (%) 98 ? ? 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 Anemia Arthritis Back problem Chronic headaches Hypertension Mitral valve prolapse Surgical History? History of excision of pilonidal cyst History of orthopedic surgery Family History? Father Prostate cancer HypertensionMother Diabetes Colon cancer Hypertension OsteoarthritisGrandfather Heart diseaseSister Lupus Fibromyalgia Social History? Smoking Status:? Never smoker alcohol intake:? never substance use type:? does not use caffeine:? Yes what type of physical activity do you participate in:? walking frequency:? 3-4 times per week seatbelt use:? always do you feel safe at home:? Yes additional social history:? -Dony HPI [facility] Details: KATHY URIAS is a 67 year old who presents for preoperative examination. 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 This year her sister after having the same surgery for the same reason due to a massive pulmonary embolism and we discussed using lovenox post operatively for 6 weeks and APL testing.? uterus is a normal size and shape but due to obesity and need to decrease operative time, the surgery will be performed robotically. EXAM:? US PELVIS TRANSVAGINAL CLINICAL INDICATION:? PMB TECHNIQUE:? Transvaginal pelvic ultrasound was performed with grayscale and color Doppler imaging.? Transvaginal imaging was used for better evaluation of the endometrium and adnexa.? This report was created using [employer] technology. COMPARISON:? None. FINDINGS: UTERUS/CERVIX:? Endometrial echo inferiorly is echogenic with shadowing suggesting calcification.? Overall the endometrial echo is poorly visualized.? Anteverted.? The uterus measures 8.2 x 5.9 x 4.4 cm.? No discrete uterine mass is identified. RIGHT OVARY:? Right ovary was not visualized. LEFT OVARY:? The left ovary was not visualized. FREE FLUID:? None. BLADDER:? Empty bladder which cannot be evaluated with this probe. US/Transvaginal Non- IMPRESSION: ? Question of endometrial calcification.? No gross mass is identified but the endometrium was poorly evaluated.? Consider MR for further evaluation. ? History ? ? ? 2 ? Elective abortions ? Hx Para ? ? ? 2 ? Spontaneous abortions ? Hx # Term Pregnancies ? Ectopic pregnancies ? Hx # Pregnancies ? Multiple births ? # of living children ? Past Pregnancies Del. Date Name GA/Weeks Outcome Route Bth Weight Gen Labor Lgth Anesthesia Del Locatn Provider FOB Unknown Talib ? Unknown Natacha ? ROS Const ROS Unobtainable: All systems reviewed & are unremarkable except as noted in H Resp Resp: Reports system reviewed and no additional complaints, except as documented; Denies cough GI GI: Reports as per HPI Psych Psych: Reports system reviewed and no additional complaints, except as documented Exam Const General: cooperative, healthy appearing, comfortable and no acute distress Resp Effort & Inspection: normal respiratory effort Skin General: no rashes or lesions noted Psych Appearance: grossly normal Speech and Movement: speech and movement normal Coding Level of Care Code Off vis,est,level 4 Diagnoses Endometrial hyperplasia without atypia, complex? N85.01 Assessment and Plan Assessment and Plan (1) Endometrial hyperplasia without atypia, complex: ?Status:?Acute ?Plan: After discussing the patient's diagnosis and treatment plan options, patient wishes to proceed with surgical management.? I have discussed with the patient the risks, benefits, and alternatives of the procedure which include but are not limited to risks of anesthesia, bleeding, infection, possible damage to bowel, bladder, or surrounding vasculature which could lead to additional surgery to evaluate any complications.? Patient agrees to procedure and wishes to proceed.? ACOG/uptodate references given for additional information regarding procedure.? plan for hysterectomy and post op lovenox. pt is also having some pain since her biopsy. will prescribe doxycycline now. ? ? ? Orders: Orders Anticardiolipin IgA,G,M Today Z82.49 - Family history of ischemic heart disease and other diseases of the circulatory system ? Anticardiolipin IgG, IgM Today Z82.49 - Family history of ischemic heart disease and other diseases of the circulatory system ? Beta-2 Glycoprot IgG, A, M Today Z82.49 - Family history of ischemic heart disease and other diseases of the circulatory system ? Lupus Anticoagulant Comp Today Z82.49 - Family history of ischemic heart disease and other diseases of the circulatory system ? Medications: New doxycycline hyclate 100 mg? PO BID 14 caps 0RF ? ?
--- NOTE | 2023-04-02 10:15 | HYST_PTH ---
PATIENT: KATHY URIAS LOC: MS3 U#:[id number] AGE/SX: 67/F ROOM: UT321 RE04/02/[address]: Dr. Samantha Arango DO : 1955 BED: 1 DIS: 04/03/2023 SPEC #: [id number] RECD: 04/02/23 16:01 STATUS: EREN BENITEZ #: [id number] TERESA: 04/02/23 10:[address]: Samantha Arango DEPT: SURGICAL PATHOLOGY RECD BY: Dhiraj Garces ENTERED: 04/03/23 11:24 SP TYPE: HYSTERECT OTHR DR: Dr. Lex Madsen DO Tissues: Uterus, NOS Procedures: Gen Path Consultation (on slides) Surgery Specimen Level V HEADER OPERATION: ERAS, lap robotic hysterectomy, bilateral salpingo-oophorectomy, cystoscopy PRE-OP DIAGNOSIS: Endometrial hyperplasia without atypia TISSUE SUBMITTED: Uterus, cervix, bilateral ovaries and fallopian tubes MICROSCOPIC DIAGNOSIS Uterus, hysterectomy: Endometrial adenocarcinoma, FIGO grade 1. See synoptic report below. AM:luke 04/11/2023 COMMENT ENDOMETRIUM CANCER SUMMARY: Procedure ? Total hysterectomy and bilateral salpingo-oophorectomy Hysterectomy type - Laparoscopic Specimen integrity - Opened Tumor site - Endometrium Tumor size ? Cannot be determined Histologic type ? 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 present Depth of myometrial invasion ? 15.0 mm Myometrial thickness ? 20.0 mm Percentage of myometrial invasion ? estimated to be greater than 50%. Adenomyosis ? present Uterine serosa involvement ? not identified Lower uterine segment involvement ? present. Cervical stroma involvement ? present Depth of cervical stroma invasion ? cannot be determined. Cervical stroma thickness - cannot be determined. Other tissue / organ involvement ? not applicable Peritoneal / ascitic fluid ? not submitted / unknown Lymphatic and/or vascular invasion ? not identified Margin status ? all margins are negative for invasive carcinoma. Closest margin to invasive carcinoma ? ectocervical margin. Distance from invasive carcinoma to closest margin ? 13.0 cm. Region lymph node status ? not applicable Distant metastasis ? cannot be determined. Additional findings ? extensive adenomyosis, ovaries with benign inclusion cysts and fallopian tubes with no pathologic change. Ancillary studies ? immunohistochemistry ? p16 negative, Ki67 positive, increased expression PATHOLOGIC STAGE: pT1b Nx Mx FIGO STAGE: II ? Tumor invades cervical stroma but does not extend beyond the uterus or cervical margins of excision. It involves greater than 50% of the thickness of myometrium and does not extend to serosal surface in any section examined. The above summary is in compliance with [employer] (CAP) Cancer Protocols Checklist and [place] Joint Committee of Cancer (AJCC), Staging Manual, 8th Ed. The specimen is sent to [facility] for expert opinion, reviewed by Dr. Matute who concurs with the above diagnosis. The complete report is viewable in the patient's EMR. An incorrect impression of full thickness invasion is mentioned in this report and is based on selected slides which do not contain serosal surfaces. Case has been reviewed in consultation with Dr. Riggs who concurs with the above diagnosis. IDC:SJ MICROSCOPIC DESCRIPTION Slides are reviewed. GROSS DESCRIPTION Received in fixative is one container labeled with the patient's name and designated uterus, cervix, bilateral fallopian tubes and ovaries. The specimen consists of a hysterectomy specimen previously, partially opened consisting of uterus with attached bilateral fallopian tubes and ovary and detached cervix. The uterus with cervix weighs 130 gm and measures 5.0 x 5.0 cm. The detached cervix measures 3.5 x 3.5 x 2.5 cm. The external os is slit-like in contour. The endocervical canal measures 2.0 cm in length. The cervix could not be oriented due to detached cervix. Sections of cervix reveal a few cysts filled with mucoid material. Uterus measures 7.5 x 5 x 5 cm. The endometrial cavity is saucer-shaped and triangular and measures 5.5 cm in length and 4.0 cm in width. The endometrium is ragged without any obvious mass lesion and measures 0.2 cm in thickness. The proximal portion of endocervical canal is also noted in the piece of uterus measuring 1.0 cm in greatest dimension. Sections of the uterine wall do not reveal any mass lesion and measures 2.0 cm in thickness. The myometrium measures 2.0 cm. The right fallopian tube measures 5.0 cm in length and up to 1.0 cm in diameter. The fimbrial end is identified. Sections reveal unremarkable cut surfaces. The adjacent right ovary measures 2.0 x 0.8 x 0.8 cm. Sections reveal unremarkable cut surfaces. The left fallopian tube is similar appearance to right and measures 5.0 cm in length and 0.7 cm in diameter. The left ovary measures 2.0 x 1.0 x 0.5 cm. Sections reveal unremarkable cut surfaces. Administrative Officer sections are submitted in 14 cassettes as follows: 1?&?2 - cervix, 3-7 - anterior uterine wall, 8-12 - posterior uterine wall, 13 - right fallopian tube and ovary, 14 - left fallopian tube and ovary. / SJ:luke 04/03/2023 More sections are submitted in 11 more cassettes, 15-25. Cassette 15 contains rest of the right and left ovary. The left ovary is inked black. Entire endometrium is submitted. / SJ:luke 04/04/2023 TC:0 CPT: 44324
[2023-04-02 10:30] LABS: Potassium 3.1 mmol/L (3.5-5.1)
[2023-04-02] MEDS: Cefazolin 2 GM in 0.9% Normal Saline 100 ML IV (10:51)
--- NOTE | 2023-04-02 10:51 | DCINST_ITS ---
Discharge Instructions Diet Discharge Diet: No restrictions Activity May resume sexual activity in: 6 weeks Weight Bearing Status: Full weight bearing Dressing / Incision Call your doctor if your incision/area has: Continuous Slow Oozing, Sudden Increased Bleeding, Increased Pain/ Swelling, Increased Redness and Foul Smelling Discharge Call your doctor if you observe: Fever of 101 or Higher, Using more than 1 pad per hour, Shortness of breath, Chest pain and Uncontrolled pain Suture Line Care: Avoid Pulling/Pushing and Avoid Pinching/Bending Remove Dressing in: 1 week (if present) Cleanse incision/area with: Soap & Water and Keep Dressing Clean & Dry Follow Up Care Please Follow Up With: Samantha Arango DO When: Call to make an appointment with your doctor for a postop visit in 2 and 6 weeks Test Results: Test results from this visit will be discussed in further detail at your follow- up appointment, if applicable. Discharge Plan Admission Primary Reason for Your Visit: hysterectomy Attending Provider: Samantha Arango Primary Care Provider: Lex Madsen Discharge Orders/Prescriptions Prescriptions: New ibuprofen 800 mg tablet 800 mg PO Q8H PRN (Reason: pain) Qty: 30 0RF hydrocodone-acetaminophen 5-325 mg tablet 1 tab PO Q4H PRN (Reason: pain) 7 Days Qty: 30 0RF enoxaparin [Lovenox] 40 mg/0.4 mL syringe 40 mg subcut DAILY Qty: 4 2RF Rx Instructions: start on first post operative day ( day after surgery, in the am) Continued Gemtesa 75 mg tablet 75 mg PO DAILY ibuprofen 200 mg Tablet 400 mg PO Q6H PRN (Reason: Pain) lisinopril-hydrochlorothiazide 20-12.5 mg tablet 1 tab PO QDAY Qty: 90 3RF amlodipine 5 mg tablet 5 mg PO DAILY Qty: 90 1RF potassium chloride 10 mEq tablet,ER particles/crystals 10 meq PO BID Qty: 90 1RF Referrals / Follow Up: Lex Madsen DO [Primary Care Provider] - Disposition Disposition (needs filled in before D/C Order can be placed): Home, Self Care
--- NOTE | 2023-04-02 10:56 | OP.PCM_ITS ---
Problems Associated Problem List Diagnoses (1) FH: colon cancer: (2) Post-menopausal bleeding: (3) Endometrial hyperplasia without atypia, complex: (4) Anemia: Report of Operation Date of Procedure: 04/02/23 Pre-Operative Diagnosis: 67 y/o with postmenopausal bleeding, complex endometrial hyperplasia without atypia Post-Operative Diagnosis: 67 y/o with postmenopausal bleeding, complex endometrial hyperplasia without atypia Surgery/Procedure Performed:: total robotic hysterectomy, bilateral salpingo- oophorectomy, cystoscopy Surgeon: Samantha Arango can inspector: Renata Art Type of Anesthesia: General Anesthesiologist: See Babin Specimen's removed: uterus, cerivx, fallopian tubes, and ovaries Estimated Blood Loss (mL): 50cc Description of Procedure: Findings: 11 cm size uterus, normal appearing ovaries and tubes. On exploration of the abdominal cavity the uterus, adnexa, bowel, and liver were found to be normal. Upon removal of the uterus purulent material escaped from the uterus and the cerivx appeared somewhat necrotic. The uterus was bivalved externally with scissors and the body of the uterus was smooth with out mass. A cystic structure and irregular appearing tissue was noted in the cervix. Cystoscopy showed no evidence of leaking at approximately 250 cc of normal saline, positive ureteral orifices and jet flow are seen and no suture material was appreciated in the bladder. Specimens removed: Uterus and cervix, Bilateral tubes and ovaries Reason for surgery: This is a 67-year-old who presented to my office with history of postmenopausal bleeidng and colon cancer. EMB showed complex endometrial hyperplasia without atypia. After the biopsy she developed a uterine infection. The planned procedure is for a robotic hysterectomy the risks benefits and alternatives were discussed with the patient the patient had a clear understanding of the procedure and a consent form was signed. Procedure: The patient was placed in the dorsal low lithotomy position and prepped and draped in the normal sterile fashion both abdominally and in the perineum. Her legs were placed in stirrups a Tony catheter was inserted into the urethra without difficulty. A weighted speculum was placed in the vagina and a single- tooth tenaculum was used to grasp the anterior lip of the cervix. An advincula uterine manipulator was inserted through the cervix without complication. It was then tied into place at the 2 and 10:00 locations on the cervix. Gloves were changed and attention was turned towards the abdomen. Approximately 23 cm above the pubic symphysis in the midline, and after Marcaine injection, a [8] mm inc ision was made. An 8 mm trocar was inserted through the laparoscope, then inserted into the abdomen under direct visualization using the laparoscope. Good abdominal placement was noted and no complications were appreciated. An air seal device was utilized to create pneumoperitoneum. At 12 cm lateral to the midline on the left and right sides 8 mm accessory ports were placed. Next a left upper quadrant 8 mm assistant dean of students port site was placed. The patient was placed in steep Trendelenburg position. The robot was docked. The hysterectomy was initiated first by taking down the round ligament on each side using the vessel sealer device. [The peritoneum between the round ligament and the IP ligament was opened using electrocautery and extended the length of the IP ligament. The IP ligament was then taken down using the vessel sealer device. These areas were freed without complication] the broad ligament was then and taken down using the vessel sealer device. Next the bladder flap was taken down without complication. This was done using monopolar cautery to the level of the cervical vaginal junction. After the bladder flap was created, uterine vessels were then isolated and cauterized using the vessel sealer device and EndoShears. At this point the uterine vessels were taken down further starting from the ascending branch, dissecting along the edges of the cervix to the level of the cervical vaginal junction with hemostasis appreciated. The cervical vaginal junction was then using monopolar cautery in a circumferential pattern across the superior aspect of the cervix. The specimen was delivered through the vagina and sent to pathology.Upon removal of the uterus purulent material escaped from the uterus and the cerivx appeared somewhat necrotic. The uterus was bivalved externally with scissors and the body of the uterus was smooth with out mass. A cystic structure and irregular appearing tissue was noted in the cervix. The remaining vaginal cuff was then closed using a V lock suture. This was performed in a running technique. Excellent hemostasis was obtained and good closure was noted. Irrigation was then performed. All operative sites were noted to be hemostatic. A cystoscopy was performed with a 70 degree cystoscope through the urethra into the bladder without complication. The bladder was instilled with approximately 250 cc of normal saline. Intraoperative images were made. Ureteral orifices and jets were identified. No suture material was appreciated in the bladder. The bladder was then drained and cystoscope was removed. The abdominal cavity was again examined using the laparoscope after the robot was undocked. All operative sites were noted to be hemostatic. The trochars were removed under direct visualization without complication and pneumoperitoneum was reduced. At this point the skin was then closed using 4-0 Monocryl subcuticular stitch and sealed with surgical glue. The patient tolerated the procedure well sponge lap and needle counts were correct x2 the patient was taken to the recovery room in stable condition. Admit VTE Documentation VTE Present on Admission: Yes VTE Mechan Device Prophylaxis: SCD's VTE Pharm Prophylaxis ordered?: Yes Multi Select Codes Urinary/Genital Urinary/Genital CPT Codes: 15449 TLH+BS/O >250gr uterus
[2023-04-02] MEDS: Bupivacaine 0.25% 30 ML Vial (11:20)
[2023-04-02] MEDS: Lactated Ringers 1,000 ML 15 ML IV (12:01)
[2023-04-02] MEDS: Ondansetron 4 MG/2 ML Vial IV (14:04)
[2023-04-02] MEDS: Lactated Ringers @ 70 MLS/HR 70 ML IV (15:30)
[2023-04-02] MEDS: Ketorolac 30 MG/ML Syringe IV ×2 (16:06→21:05)
[2023-04-02] MEDS: HYDROcodone Bitartrate/Apap 5/325 Tablet PO (19:13)
[2023-04-02] MEDS: Docusate Sodium 100 MG Capsule PO (21:05)
[2023-04-03 01:20] VITALS: BP 134/75; PULSE 95; RESP 15; TEMP 37; O2SAT 96
[2023-04-03] MEDS: Acetaminophen 500 MG Tablet 1000 MG PO ×2 (04:01→09:05)
[2023-04-03] MEDS: Ketorolac 30 MG/ML Syringe IV ×2 (04:02→09:05)
[2023-04-03] MEDS: 0.9% Saline Lock 10 ML Syringe IV (04:02)
[2023-04-03 05:00] VITALS: BP 151/77; PULSE 90; RESP 15; TEMP 37.2; O2SAT 94
[2023-04-03 07:43] VITALS: BP 144/69; PULSE 82; RESP 16; TEMP 36.8; O2SAT 96
[2023-04-03 07:48] VITALS: BP 144/69; PULSE 82; RESP 16; TEMP 36.8; O2SAT 96
[2023-04-03 07:59] LABS: Absolute Lymphocyte Count 1.19 X10^3/uL (0.83-4.51); Absolute Neutrophil Count 13.2 X10^3/uL (2.0-7.7); Basophil# 0.02 X10^3/uL; Basophil% 0.1 % (0-1); Hematocrit 32.2 % (37-47); Hemoglobin 10.4 g/dL (12.0-15.0); Lymphocyte # 1.19 X10^3/ul (0.83-4.51); Mean Corp Hgb Conc 32.3 g/dL (32-36); Mean Corpuscular Hgb 27.7 pg (27.0-32.0); Mean Corpuscular Volume 85.6 fL (81-99); Mean Platelet Vol. 10.2 fl (6.2-12.0); Monocyte# 0.33 X10^3/uL; Monocyte% 2.2 % (0-10); NRBC Flagged by Analyzer 0 % (0-5); Neutrophil # 13.18 X10^3/uL (2.7-7.7); Neutrophil % 89.1 % (47-70); Platelet Count 352 K/mm3 (150-450); RBC Distribution Width CV 13.9 % (11.6-14.6); RBC Distribution Width SD 43.6 fl (35.1-43.9); Red Blood Count 3.76 M/mm3 (4.2-5.4); White Blood Count 14.8 K/mm3 (4.4-11.0)
--- NOTE | 2023-04-03 08:50 | CASEMGMT ---
RN CM NOTE: Pt to discharge home on Lovenox, which has been e-scribed to [facility]. Call to Zuhair @ the pharmacy for dumont-check. Cost is $11.10. BRIA Zafar, states has provided education w/pt this morning and pt did return demonstration. Lou TIMMONS RN CM
[2023-04-03] MEDS: Enoxaparin 40 MG/0.4 ML Syringe SC (09:05)
[2023-04-03] MEDS: Lisinopril 20 MG Tablet PO (09:06)
[2023-04-03] MEDS: hydroCHLOROthiazide 12.5mg 12.5 MG PO (09:06)
[2023-04-03] MEDS: Docusate Sodium 100 MG Capsule PO (09:06)
[2023-04-03 09:54] VITALS: O2SAT 95
--- NOTE | 2023-04-03 13:37 | PCM.PN.OB ---
Subjective Subjective Patient is laying in bed comfortably without complaints. She states that she slept on an off during the night. She states that she feels much better and wants to go home Objective Data Objective Data Vital Signs: Vital Signs Temp Pulse Resp BP Pulse Ox O2 Del Method O2 Flow Rate 98.2 F 82 16 144/69 H 95 Room Air 4 04/03/23 07:48 04/03/23 07:48 04/03/23 07:48 04/03/23 07:48 04/03/23 09:54 04/03/23 09:54 04/02/23 15:00 Oxygen Flow Rate (L/min) 4 Oxygen Delivery Method Room Air Weight: 96 lb 11.2 oz Body Mass Index (BMI) 15.5 Intake & Output: Intake and Output for Last 24 Hours 04/01/23 04/02/23 04/03/23 23:59 23:59 23:59 Intake Total 2387 / 3187 1700 / 1700 Balance 2387 / 3187 1700 / 1700 Lab / Micro Data Result Diagrams: 04/03/23 07:27 04/02/23 10:05 Labs: Laboratory Results - last 24 hr 04/03/23 07:27: WBC 14.8 H, RBC 3.76 L, Hgb 10.4 L, Hct 32.2 L, MCV 85.6, MCH 27.7, MCHC 32.3, RDW Std Deviation 43.6, RDW Coeff of Tae 13.9, Plt Count 352, MPV 10.2, Immature Gran % (Auto) 0.600, Neut % (Auto) 89.1 H, Lymph % (Auto) 8.0 L, [place] % (Auto) 2.2, Eos % (Auto) 0.0, Baso % (Auto) 0.1, Absolute Neuts (auto) 13.2 H, Absolute Lymphs (auto) 1.19, Nucleated RBC % 0 ROS Constitutional Constitutional: Reports systems reviewed and no addt'l complaints, except as documented Cardiovascular Cardiovascular: Denies chest pain, dizziness, dyspnea or irregular heart rhythm Respiratory/Chest Respiratory/Chest: Denies cough, pain on inspiration or shortness of breath at rest Gastrointestinal Gastrointestinal: Denies abdominal pain, nausea or vomiting Genitourinary Genitourinary: Denies burning urination Musculoskeletal Musculoskeletal: Denies muscle cramps, muscle spasms or muscle weakness Neurologic Neurologic: Denies confusion, dizziness, headache(s) or lack of coordination Psychiatric Psychiatric: Denies anxiety, behavioral changes or depression Physical Exam HEENT normocephalic Resp normal respiratory effort and normal air movement GI soft to palpation, non-tender and non-distended Rectal Exam: other Other Details: Incision is clean, dry, and intact no CVA tenderness Extremity normal to inspection General Extremity: edema bilateral (trace ) Assessment & Plan (1) Status post hysterectomy: PLAN: patient is s/p robotic hysterectomy POD 1 1. routine ERAS protocol postop care- increase ambulation, encourage oral intake and oral control of pain. lovenox and scds for dvt prophylaxis, patient stable for discharge to home.
[2023-04-03 13:39] VITALS: BP 136/84; PULSE 76; RESP 16; TEMP 36.7; O2SAT 99
--- NOTE | 2023-04-03 14:37 | NURSING ---
Pt discharged home with spouse went over discharge instructions no questions ask. Both IVs removed and intact at time of removal.
--- NOTE | 2023-04-03 14:53 | PHA.DC.MR ---
Pharmacy Service has performed discharge medication reconciliation for this patient. The patient's discharge medication list was reviewed for discrepancies and discrepancies were resolved. Patient discharged before counseling was attempted. Home Medications vibegron 75 mg tablet (Gemtesa) 75 mg PO DAILY 03/13/23 lisinopril 20 mg-hydrochlorothiazide 12.5 mg tablet 1 tab PO QDAY #90 tabs 03/14/23 ibuprofen 200 mg tablet 400 mg PO Q6H PRN Pain 03/22/23 amlodipine 5 mg tablet 5 mg PO DAILY #90 tabs 03/23/23 potassium chloride 10 mEq tablet,extended release(part/cryst) 10 meq PO BID #90 tabs 04/01/23 enoxaparin 40 mg/0.4 mL subcutaneous syringe (Lovenox) 40 mg (0.4 mL) subcut DAILY #4 mL 04/02/23 hydrocodone-acetaminophen 5-325mg 5mg-325mg 1 tab PO Q4H PRN pain 7 days #30 tabs 04/02/23 ibuprofen 800 mg tablet 800 mg PO Q8H PRN pain #30 tabs 04/02/23
== END 2023-04-03 14:22 | disposition home or self-care (01) ==
LOC: MS3 17:24 → SDC 21:42 → MS3 04-03 08:07
PROVIDERS: Anesthesiology; Admitting Provider Obstetrics & Gynecology; PCP Family Medicine; Referring Provider Obstetrics & Gynecology; Visit Provider Obstetrics & Gynecology
PROC: 0UT94ZZ Resection of Uterus, Percutaneous Endoscopic Approach (ICD-10-PCS; CPT 58571; principal; 2023-04-02 09:55)
DX: C54.1 Malignant neoplasm of endometrium (principal); N95.0 Postmenopausal bleeding; Z79.899 Other long term (current) drug therapy; M19.90 Unspecified osteoarthritis, unspecified site; I10 Essential (primary) hypertension
CPT/HCPCS: 58571; S2900; 00840; 36415; 80053; 82962; 83735; 84132; 85025; 85027; 85610; 85730; 86146; 86147; 86850; 86900; 86901; 87070; 87075; 87077; 87186; 87205; 88307; 88325; 93005; 94668; 96372; 96374; 96376; 99221; 99252; J7050; J7120; A4216; G0378; G0463; J2405; J3475

== ENCOUNTER → 2023-04-17 | Outpatient (CLI) | payer MEDICARE, SELFPAY ==
[2023-04-17 13:35] LABS: AST(SGOT) 18 U/L (15-37); Alanine Aminotransfer ALT/SGPT 28 U/L (13-56); Albumin, Serum 3.6 g/dL (3.2-5.0); Alkaline Phosphatase 67 U/L (45-117); Anion Gap 8 (5-15); BUN 17 mg/dL (7-18); BUN/Creat Ratio 21.9 RATIO (10-20); Calcium,Total 9.6 mg/dL (8.5-10.1); Chloride 100 mmol/L (98-107); Creatinine, Serum 0.78 mg/dL (0.55-1.02); EST Glomerular Filtration Rate 78 mL/min (>60); Est Glom Filt Rate - Afr Amer 95 mL/min (>60); Globulin 3.7 g/dL (2.2-4.2); Glucose 100 mg/dL (74-106); Potassium 3.6 mmol/L (3.5-5.1); Protein, Total 7.3 g/dL (6.4-8.2); Sodium Level 135 mmol/L (136-145)
[2023-04-17 13:40] LABS: NATERA MAILED SPECIMEN
== END | disposition home or self-care (01) ==
LOC: PAVLAB 12:29
PROVIDERS: PCP Family Medicine; Referring Provider Obstetrics & Gynecology; Visit Provider Obstetrics & Gynecology
DX: E87.6 Hypokalemia (principal); Z83.71 Family history of colonic polyps
CPT/HCPCS: 36415; 80053

== ENCOUNTER → 2023-04-30 | Outpatient (CLI) | payer MEDICARE, SELFPAY ==
[2023-04-30 13:09] LABS: Creatinine, Serum 0.74 mg/dL (0.55-1.02); EST Glomerular Filtration Rate 83 mL/min (>60); Est Glom Filt Rate - Afr Amer 101 mL/min (>60)
== END | disposition home or self-care (01) ==
LOC: BIMLAB 10:25
PROVIDERS: PCP Family Medicine; Visit Provider Obstetrics & Gynecology Gynecologic Oncology
DX: C54.1 Malignant neoplasm of endometrium (principal)
CPT/HCPCS: 36415; 82565

== ENCOUNTER → 2023-05-03 | Outpatient (CLI) | payer MEDICARE, SELFPAY ==
--- NOTE | 2023-05-03 07:00 | CT_ITS ---
STUDY: CT ABDOMEN AND PELVIS WITH CONTRAST REASON FOR EXAM: Female, 67 years old. Malignant neoplasm of endometrium. Prior hysterectomy. RADIATION DOSAGE (If Supplied By Facility): CTDIvol = ( 11.69 ) mGy, DLP = ( 1028.83 ) mGycm TECHNIQUE: Transaxial images were obtained from the dome of the diaphragm to the symphysis pubis with oral contrast. Oral and amp; IV Readi-CAT and amp; 100mL Isovue-370 was administered. Sagittal and coronal images were reconstructed. Individualized dose optimization techniques were used for this CT. COMPARISON: Comparison is made with prior study dated February 11, 2023. FINDINGS: The visualized lung bases are unremarkable. The visualized portions of the heart are within normal limits. Normal liver. Normal gallbladder and extrahepatic biliary system. Normal spleen. Normal pancreas. Normal bilateral adrenal glands. Normal right kidney. Normal left kidney. Incidental note is made of a left retroaortic renal vein. Normal visualized stomach. Normal small intestine. There are scattered colonic diverticula consistent with diverticulosis. There is non-visualization of the appendix. There is scattered atherosclerotic calcification of the abdominal aorta, without a demonstrated aneurysm. Normal inferior vena cava. Normal retroperitoneum. Normal urinary bladder. There is absence of the uterus consistent with a prior hysterectomy. Normal abdominal wall. Disc space narrowing at the L4-L5 and L5-S1 levels. CT/Abdomen/Pelvis WITH Contrast IMPRESSION: Status post hysterectomy. Stable examination. Electronically Signed: Dale Danielson MD at 10:22 EDT ,
== END | disposition home or self-care (01) ==
LOC: CT 06:58
PROVIDERS: PCP Family Medicine; Referring Provider Obstetrics & Gynecology Gynecologic Oncology; Visit Provider Obstetrics & Gynecology Gynecologic Oncology
DX: C54.1 Malignant neoplasm of endometrium (principal)
CPT/HCPCS: 74177; Q9967

== ENCOUNTER 2023-06-21 08:57 | Outpatient (RCR) | payer MEDICARE, SELFPAY ==
--- NOTE | 2023-06-26 08:42 | HP.OTEVAL ---
Patient's Visit Information Visit Information Visit Information: KATHY URIAS is a 67 year old F, referred to Occupational Therapy by Dr. 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 Date of Evaluation: 06/21/23 Occupational Therapist: MARCUS Wang/YUMI Ruff Subjective Subjective: Pt arrives with a dx of Endometrial Stage II cancer. Pt starting radiation on Sunday June 25, 2023. Pt had left leg [address] Surgery, had some nerve damage though no swelling at this time, May 14. Pt is here for lymphedema education prior to undergoing radiation. Lymphedema (Circumferential Measure) Mid-foot: right 22.5cm left 22.5cm Ankle: right 24cm left 24cm Lower calf: right 23cm left 23 cm Largest calf: right 39cm left 39cm Below knee: right 37.5cm left 37cm Above knee: right 45cm left 43.5cm Mid-thigh: right 53cm left 49.5cm Lower Exremity Comments: No tightness noted and no significant difference between R & L leg Lower Limb Functional Index Lower Extremity Functional Score: 80 Rehabilitation General Assessment: Pt arrives for lymphedema education as she starts radiation for Endometrial Stage II cancer on June 25, 2023. Therapist provided ed regarding signs and symptoms, skin care precautions, flight precautions and possible need for leggings/panty hose compression garments 20-30 mmHg when she travels by plane. Therapist provided pt handouts regarding lower body lymphedema lymph stim massage and exercises to manage if symptoms arrives. Therapist also ed. pt on beneficial exercises ( water aerobics-yoga- walking etc) that will stimulate lymph circulation. At this time will not schedule more appointments for lymphedema mtg. Therapy session was directly supervised and doc. approved by Clemencia VELAZQUEZ/YUMI Ruff. Anticipated Interventions Anticipated Interventions: Education re Diagnosis, Education re Life-long lymphedema Management, Education re Skin Care and Precautions and Education re Self Massage Techniques Other Interventions: signs and symptoms of lymphedema Visit Plan General Plan: pt does not demo need for skilled OT services at this time. pt is at risk for development of lymphedema and did benefit from ed. on sings and symptoms of lymphedema. pt left this session with information and understanding of lymphedema - pt agrees to notify if she develops symptoms of lymphedema during or after her radiation. TEXT: Thank you for the opportunity to evaluate your patient. For Medicare and Medicare HMO plans, please review the plan of care and approve it. It will need to be FAXED BACK to us at [phone] for Medicare purposes. Please let me know if there are questions or concerns regarding this plan of care. Physician Signature: Date:
--- NOTE | 2023-06-26 08:43 | HP.OTDCSUM ---
Discharge Summary D/C Summary: It has been my pleasure to treat KATHY URIAS under orders from Dr. 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 Please see the following information for a summary of their discharge status. Goals Patient Goals: Other Other: learn signs and symptoms of lymphedema ed. on need for compression garments with travel by plane. Plan Plan: pt at this time was ed. on lymphedema signs and symptoms and if they develop what she can do to stimulate lymph fluid circulation. Pt was ed. even if she does not have symptoms she will need compression garment when traveling by plane. pt demo understanding and agree to one time visit- assured therapist she would let know if any symptoms of lymphedema arise during or following radiation. D/C Information d/c sentence: If there are questions or concerns regarding this patient's occupational therapy, please fell free to call me at [phone]. Thank you for the referral of this patient. Sincerely, Clemencia Murguia, OTR/L, CHT
== END 2023-06-21 19:00 | disposition home or self-care (01) ==
LOC: OT 08:57
PROVIDERS: Referring Provider Student in an Organized Health Care Education/Training Program; Visit Provider Student in an Organized Health Care Education/Training Program
DX: C54.1 Malignant neoplasm of endometrium (principal); Z90.710 Acquired absence of both cervix and uterus
CPT/HCPCS: 97166; 97530

== ENCOUNTER → 2024-01-30 | Outpatient (CLI) | payer MEDICARE, SELFPAY ==
--- NOTE | 2024-01-30 14:14 | US_ITS ---
STUDY: ULTRASOUND BREAST - RIGHT REASON FOR EXAM: Female, 68 years old. Abnormal screening mammogram. Right palpable lump. TECHNIQUE: Axial and longitudinal images of the RIGHT breast were performed with a high resolution ultrasound transducer. # OF IMAGES: 32 COMPARISON: Comparison is made with prior mammogram done earlier today. FINDINGS: RIGHT Breast: The palpable abnormality corresponds to 1.6 cm x 1.6 cm x 1.6 cm complex heterogeneous spiculated mass at the 10:00 position of the breast at 2 cm from the nipple. Faint calcifications seen within it. Biopsy is strongly recommended. US/Breast Limited Unilateral IMPRESSION: 1.6 cm x 1.6 cm x 1.6 cm complex heterogeneous necrotic mass at the 10:00 position of the breast at 2 cm from nipple. Biopsy recommended. ASSESSMENT CATEGORY: BIRADS Category 5: Highly Suggestive of Malignancy - Appropriate Action Should Be Taken. A letter regarding these results will be sent to the patient by the facility within 30 days. Electronically Signed: Dale Danielson MD at 9:20 EDT ,
--- NOTE | 2024-01-30 14:15 | BI_ITS ---
MAMMOGRAPHY - BILATERAL DIAGNOSTIC REASON FOR EXAM: Female, 68 years old. Palpable lump in the right breast. History of prior uterine carcinoma with radiation and surgery. PERTINENT HISTORY: Non-contributory. TECHNIQUE: Digital bilateral breast ryan (3D mammographic acquisition) in the CC and MLO projections. 2-D mediolateral oblique (MLO) and craniocaudad (CC) views of both breasts were obtained. CAD: Full Field Digital Mammography with Computer Added Detection was performed. COMPARISON: Comparison is made with prior mammogram dated January 30, 2023 and April 02, 2019. FINDINGS: Breast Composition: The breasts are heterogeneously dense, which may obscure small masses. The palpable lump corresponds to 1.3 cm x 1.3 cm spiculated nodule in the slightly upper retroareolar region of the right breast. Correlation with ultrasound is recommended. No other significant abnormalities are identified. BI/DIAG MAMM W/CAD, BILAT IMPRESSION: The palpable lump corresponds to 1.3 cm x 1.3 cm spiculated nodule in the slightly upper retroareolar region of the right breast. Correlation with ultrasound is recommended. ASSESSMENT CATEGORY: BIRADS Category 0: Incomplete. Need additional imaging evaluation. A letter regarding these results will be sent to the patient by the facility within 30 days. Approximately 10% of breast cancers are not detected by mammography. A normal mammogram should not delay biopsy of a clinically suspicious abnormality. Electronically Signed: Dale Danielson MD at 15:10 EDT ,
== END | disposition home or self-care (01) ==
LOC: OPBI 14:14
PROVIDERS: PCP Family Medicine; Referring Provider Family Medicine; Visit Provider Family Medicine
DX: N63.11 Unspecified lump in the right breast, upper outer quadrant (principal)
CPT/HCPCS: 76642; 77062; 77066; G0279

== ENCOUNTER → 2024-02-11 | Outpatient (CLI) | payer MEDICARE, SELFPAY ==
--- NOTE | 2024-02-11 | IMM_PTH ---
PATIENT: KATHY URIAS LOC: [facility] U#:[id number] AGE/SX: 68/F ROOM: RE02/11/[address]: Dr. Lurdes Cormier MD : 1955 BED: DIS: 02/11/2024 SPEC #: [id number] RECD: 02/13/24 10:53 STATUS: EREN REQ #: [id number] TERESA: 02/11/24 00:[address]: Lurdes Cormier DEPT: IMMUNOHISTOCHEMISTRY RECD BY: Jed Myers ENTERED: 02/13/24 10:54 SP TYPE: IMMUNO OTHR DR: Dr. Lex Madsen, DO Tissues: Breast, NOS Procedures: CALPONIN-1 (add) CK5-6 (add) CK8 (add) E-CAD (add) HER2 SHAWNA (add) KI-67 (add) P53 (add) DC (add) P40 (add) ER (initial) PHYSICIAN [facility] INSTITUTION [address] [address] SPECIMEN INFORMATION: Tissue Source: Right breast mass 10 o'clock Clinical Info: Biopsy right breast mass Specimen Number: [id number] CPT code: 89510,64679q9,80314s7 METHODOLOGY: Deparaffinized sections of prefer/formalin-fixed tissue or PAP/DQ stained slides are incubated with monoclonal/polyclonal antibodies/oligonucleotide probes. Localization is made via biotin free immunoperoxidase method. Appropriate controls are performed and reacted as expected. Results on target cell population are indicated in the following table: RESULTS: ANTIBODY / CLONE RESULT E-Cad (ECH-6) positive CK8 (91rdsgC91) positive Calponin-1 (MN433Z) negative CK5-6 (D5 & 1684) negative P40 (BC28) negative P53 (DO-7) negative (null pattern) Ki-67 (30-9) positive, low <5% MORPHOMETRIC ANALYSIS ER (clone 6F11) >95%, strong intensity DC (clone 16/1E2) 64%, moderate to strong intensity Her-2Neu (clone CB11) 3+ The prognostic test for HER2 is performed on formalin-fixed paraffin embedded tissue. A 3+ (positive) staining pattern is defined as intense, homogeneous, complete, circumferential membranous staining in >10% of contiguous tumor cells. A similar weak (2+) staining pattern is interpreted as equivocal. DERREK follow-up testing is recommended for all equivocal cases. Positivity/negativity for ER/DC is reported if > or < 1% of the tumor cells are immuno- reactive, respectively. The ASCO/CAP criteria is used for scoring. Reference: Journal of Clinical Oncology, 2013; 31:2723-9351 & 2010; 16:8343-4988. Ischemic time: Less than one hour. Duration of fixation: 30.5 Hrs; Sample Adequate: Yes. These assays have not been validated on decalcified tissues. Results should be interpreted with caution given the likelihood of false negativity on decalcified specimens or fixation greater than 72 hours. Alternative testing methods (FISH/dualISH for Her2; gene expression for ER) are recommended, if applicable. Please notify the laboratory if additional testing is required. These tests were developed and their performance characteristics determined by [facility]. They may not have been cleared or approved by the U.S. Food and Drug Administration. The FDA has determined that such clearance or approval is not necessary. The above immunohistochemical/dualISH markers are ordered and reviewed by the Pathologist. INTERPRETATION: Right breast mass, biopsy: Invasive ductal carcinoma. Positive for estrogen receptors (favorable prognostic indicator). Positive for progesterone receptors (favorable prognostic indicator). Positive for overexpression of SKS8wmx. JOSUE/mr 02/14/2024
--- NOTE | 2024-02-11 | BRBX_PTH ---
PATIENT: KATHY URIAS [facility] U#:[id number] AGE/SX: 68/F ROOM: RE02/11/[address]: Dr. Lurdes Cormier MD : 1955 BED: DIS: 02/11/2024 SPEC #: [id number] RECD: 02/11/24 14:24 STATUS: EREN REErika #: [id number] TERESA: 02/11/24 00:[address]: Lurdes Cormier DEPT: SURGICAL PATHOLOGY RECD BY: Talib Orr ENTERED: 02/12/24 10:12 SP TYPE: BREAST BX OT DR: Dr. Lex Madsen, DO Tissues: Right breast, NOS Procedures: Surgery Specimen Level IV HEADER OPERATION: Biopsy right breast tissue PRE-OP DIAGNOSIS: Biopsy right breast mass TISSUE SUBMITTED: Right breast mass 10 o'clock 2cm MICROSCOPIC DIAGNOSIS Right breast mass, 10 o'clock, 2.0cm, core biopsy: Invasive ductal carcinoma. See cancer summary in comment section. JOSUE/mr 02/13/2024 COMMENT INVASIVE BREAST CANCER SUMMARY: Procedure: Needle core biopsy Specimen Laterality: Right Tumor site: 10 o'clock, 2.0cm Histologic type: Invasive ductal carcinoma Provisional Histologic grade ([place] Grade): Tubule Differentiation Score: 2 Nuclear Pleomorphism Score: 2 Mitotic Rate Score: 1 Overall grade: 1 (score of 5) Tumor Size (greatest dimension): 0.9cm in greatest length Ductal Carcinoma Insitu: Present, focal Architectural Pattern: Cribriform Nuclear Grade: 2 (intermediate) Necrosis: Not identified Angiolymphatic Invasion: not identified. Microcalcifications: Not identified Additional Findings: Immunohistochemistry (QO63-611) supports the above diagnosis. ER: positive (>95%, strong intensity) MI: positive (64%, moderate to strong intensity) Her-2 krysta: positive (3+) The above summary is in compliance with [employer] [place] Pathology (CAP) Cancer Protocols Checklist and [place] Joint Committee on Cancer (AJCC), Staging Manual, 8th Ed. MICROSCOPIC DESCRIPTION Slides are reviewed. GROSS DESCRIPTION Received in fixative is one container labeled with the patient's name and designated Right breast tissue. The specimen consists of multiple elongated fragments of yung-yellow fibro adipose tissue that in aggregate measure 1.5 x 0.5 x 0.1 cm. The specimen is totally submitted in one cassette. JOSUE/ 02/12/2024 TC:0 CPT:50353
== END | disposition home or self-care (01) ==
LOC: LABSPEC 14:24
PROVIDERS: PCP Family Medicine; Referring Provider Surgery; Visit Provider Surgery
DX: C50.411 Malignant neoplasm of upper-outer quadrant of right female breast (principal)
CPT/HCPCS: 88305; 88341; 88342

== ENCOUNTER 2024-03-04 07:27 | Day surgery (SDC) | payer MEDICARE, SELFPAY ==
--- NOTE | 2024-03-04 07:53 | PCM.HP.BLA ---
History and Physical Date of Admission: 03/04/24 Date of Service: 02/21/24 MR#: [id number] Acct: [id number] Name: KATHY URIAS Rep #: [id number] : 1955 Provider: Dr. Lurdes Cormier MD Age/Sex: 68/F Location: 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: No Accompanied by: Is patient in pain?: No Allergies No Known Allergies Allergy (Verified 02/21/24 09:51) Medications vibegron 75 mg tablet (Gemtesa) 75 mg PO DAILY 03/13/23 [History Confirmed 02/21/24] lisinopril 20 mg-hydrochlorothiazide 12.5 mg tablet 1 tab PO QDAY #90 tabs 03/14/23 [Rx Confirmed 02/21/24] PFSH Medical History Anemia Arthritis Back pain Back problem Cancer Cancer of right female breast Cardiology follow-up encounter Chronic headaches Encounter for education History of edema History of stress test Hx of vaginal delivery Hypertension Migraine headache Mitral valve prolapse Non-smoker Post-menopausal Wears contact lenses Wears glasses Wears hearing aid Surgical History H/O: hysterectomy History of excision of pilonidal cyst History of orthopedic surgery Hx of colonoscopy Hx of right breast biopsy S/P cystoscopy Status post total hysterectomy and bilateral salpingo-oophorectomy Family History Father Prostate cancer HypertensionMother Diabetes Colon cancer Hypertension OsteoarthritisGrandfather Heart diseaseSister Lupus FibromyalgiaSister , December 2022 from post op PE Endometrial cancer Social History Smoking Status: Never smoker alcohol intake: never substance use type: does not use caffeine: Yes what type of physical activity do you participate in: walking frequency: 3-4 times per week seatbelt use: always do you feel safe at home: Yes additional social history: -Dony HPI HPI HPI: 68-year-old female presents due to right breast cancer HER2 positive for port placement. ROS General General: Yes weight change; No appetite, fatigue, colon cancer, breast cancer or weakness HEENT HEENT: No difficulty swallowing, eye injury, eye surgery, swollen glands or hoarseness Endo Endocrine: No thyroid disease, diabetes mellitus, thyroid cancer, Hair loss, heat intolerance or cold intolerance Skin Skin: No rash or changing moles Breast Breast: Yes right breast lump, abnormal mammogram and abnormal US; No left breast lump, nipple discharge, breast pain or breast enlargement Musc Musculoskeletal: Yes arthritis; No back problems, rheumatoid arthritis, gout or joint pain Cardio Cardiovascular: Yes high blood pressure; No murmur, pacemaker, heart disease, atrial fibrillation, heart attack, heart stent, palpitations, shortness of breat with exertion or chest pain Psych Psychiatric: Yes anxiety; No depression or hearing voices Resp Respiratory: No shortness of breath, No sleep apnea, No cough, No COPD, No asthma, No emphysema and No wheezing Gastro Gastrointestinal: No abdominal pain, No nausea or vomiting, No diarrhea, No constipation, No blood in stool, No acid reflux, No hemorrhoids, No ulcers, No gallbladder problem and No black,tarry stools Peter Hematologic: No blood thinners, No blood disorders, No bleeding, Yes anemia and No blood clots Neuro Neurologic: No system reviewed and no additional complaints, except as documented, No as per HPI, No abnormal gait, No abnormal hearing, No abnormal movements, No abnormal speech, No behavioral changes, No burning sensations, No confusion, No convulsions, No disequilibrium, No dizziness, No localized weakness, No frequent falls, No headache(s), No lack of coordination, No loss of vision, No memory loss, No numbness, No other visual disturbances, No radicular pain, No restless legs, No sensory deficit, No syncope, No tingling, No tremor(s), No weakness and No other Exam Const General: cooperative, healthy appearing, comfortable and no acute distress [facility] Head: normocephalic and atraumatic Neck Neck: supple Chest Other: Palpation of bilateral upper chest normal Resp Effort & Inspection: normal respiratory effort Cardio Rate: regular rate GI Inspection: non-distended Skin General: no rashes or lesions noted Neuro General: CN's II-XI intact bilaterally Extrem General: normal to inspection Psych Mental Status: mental status grossly normal Attitude: cooperative Assessment and Plan Assessment and Plan (1) Cancer of right female breast: Status: Acute Qualifiers: Breast location: unspecified site of breast Estrogen receptor status: positive Qualified Code(s): C50.911 - Malignant neoplasm of unspecified site of right female breast; Z17.0 - Estrogen receptor positive status [ER+] (2) Encounter for insertion of venous access port: Status: Acute Orders: Orders Breast Bilateral W/O and W Today C50.911 - Malignant neoplasm of unspecified site of right female breast, Z17.0 - Estrogen receptor positive status [ER+] Plan Discussed with patient we will plan for MRI as well to be able to compare to after neoadjuvant chemotherapy. I have discussed above with the patient- Port-a-Cath placement. Left IJ possible right Patient has been counseled as to the risks/benefits of the procedure. I have explained the risks of the surgery, including but not limited to: infection, bleeding, injury to any blood vessels/nerves, injury to lungs (such as pneumothorax or hemothorax and need for chest tube), not having any access, nonfunctioning of port due to thrombosis, infection of port, etc. the patient understands and agrees to proceed. I have answered all the patient's questions to the patient?s satisfaction and the patient has no further questions. Lurdes Cormier M.D. Pager: [phone] [facility] [address] [place] [address], [address] [place] [address] Office: [phone] Coding Level of Care Code Off vis,est,level 3 Diagnoses Malignant neoplasm of right breast in female, estrogen receptor positive, unspecified site of breast C50.911; Z17.0 Breast location: unspecified site of breast Estrogen receptor status: positive Encounter for insertion of venous access port Z45.2 02/21/24 1043 <Electronically signed by Lurdes Cormier MD> Date Lurdes Comrier MD
[2024-03-04 08:01] VITALS: BP 152/76; PULSE 85; RESP 18; TEMP 37.3; O2SAT 97; BMI 31.8
[2024-03-04] MEDS: Lactated Ringers 1,000 ML 15 ML IV (08:14)
[2024-03-04 08:27] LABS: Potassium 3.3 mmol/L (3.5-5.1)
[2024-03-04] MEDS: Cefazolin 2 GM in 0.9% Normal Saline (100mL Bag) 100 ML IV (09:56)
[2024-03-04] MEDS: Lidocaine 1% /Epi 1:100 (20ml) 20 ML Vial (10:16)
[2024-03-04] MEDS: Bupivacaine Mpf 0.5% 30 ML VIAL (10:30)
[2024-03-04] MEDS: 0.9% Normal Saline (Pres. free 10 ML Vial (10:30)
--- NOTE | 2024-03-04 10:32 | RAD_ITS ---
HISTORY: port -- PORTABLE PACU. TECHNIQUE: XR Chest 1 View. COMPARISON: None. FINDINGS: CARDIOMEDIASTINAL BORDERS: Cardiac silhouette within normal limits in size. Mediastinal contour unremarkable. Left chest wall port with catheter tip at the level of the distal superior vena cava. LUNGS: Radiographically clear. PLEURA: No pleural effusion or pneumothorax seen. OSSEOUS STRUCTURES: Mild degenerative change. Old lower anterior rib fractures. RAD/Chest 1 View (Portable) IMPRESSION: No acute cardiopulmonary process identified. Satisfactory appearance of chest wall port. Electronically Signed: Annabelle Lyn MD at 11:06 EDT ,
--- NOTE | 2024-03-04 10:32 | PCM.OPRPT ---
Report of Operation Date of Procedure: 03/04/24 Pre-Operative Diagnosis: z45.2, right breast cancer Post-Operative Diagnosis: same Surgery/Procedure Performed:: Placement of left IJ port Use of ultrasound Use of fluoroscopy Surgeon: Lurdes Cormier Type of Anesthesia: MAC/Supplemental Anesthesiologist: Weston Todd Special Medications: 2 g Ancef iv x 1 Specimen's removed: none Estimated Blood Loss (mL): < 10 cc Description of Procedure: After informed consent was given, the patient was brought to the operating room and placed in the supine position. Appropriate time out protocol was followed. Patient was then given IV conscious sedation for anesthesia. The patient's left upper chest and neck were then prepped with a surgical skin preparation and sterile surgical drapes were placed. After proper landmarks were ascertained, the skin at the upper left chest area was then infiltrated with 1:1 mixture of 1% lidocaine with epinephrine and 0.5% marcaine. A needle trocar was then inserted into the left left internal jugular vein with ultrasound guidance-multiple vessels were viewed with u/s and the left IJ was chosen-- and there was good aspiration of venous blood. A wire was then threaded into the needle trocar and this was visualized under fluoroscopy to ensure that the wire was in the superior vena cava. Once this was done, then the needle trocar was removed. A small skin madison was made with an 11 blade knife at the wire entrance site. The dilator with the introducer sheath attached was then placed over the wire into the left internal jugular vein via the Seldinger technique and this was visualized under fluoroscopy. The dilator and sheath were in proper position as visualized by fluoroscopy. A subcutaneous pocket was then created caudad to the catheter insertion site. A transverse skin incision was made after the skin and subcutaneous tissues were infiltrated with local anesthetic. Blunt dissection was then used to create a space large enough for placement of the subcutaneous port. The catheter was then tunneled into the subcutaneous pocket. The wire and dilator were then removed. The catheter was then threaded into the introducer sheath and was positioned with its tip at the junction of the superior vena cava and the right atrium as visualized under fluoroscopy. The excess catheter was transected. The catheter was then attached to the subcutaneous port using manufacturers guidelines. The catheter was flushed with a heparin saline mixture prior to placement. Hemostasis was carefully controlled with electrocautery. The port was sutured to the subcutaneous fascia using 2-0 Vicryl suture at two sites. The port was then placed in the subcutaneous pocket. The incision were reapproximated with interrupted subdermal 3-0 vicryl sutures. The skin was reapproximated with 3-0 nylon suture in a interrupted fashion. Steristrips were used for reinforcement of the skin closure at IJ insertion site and a sterile opsite dressings were applied. The patient tolerated the procedure well. Grafts/Implants Used: Bard PowerPort isp M.R.I. 6Fr Lot [id number] Complications none
--- NOTE | 2024-03-04 10:36 | DCINST_ITS ---
Discharge Instructions Procedure Port-A-Cath Diet Discharge Diet: Light diet - advance as tolerated Activity May shower in (days): 5 (Keep port site clean and dry x5 days. Neck incision okay to get wet after 1 day. Okay to lower shower and upper sponge bath. OR okay to taper off port site with a Ziploc bag to shower) Lifting Restrictions: No lifting > 15 pounds for 3 days with the arm on the side of the port Dressing / Incision Call your doctor if your incision/area has: Continuous Slow Oozing, Sudden Increased Bleeding, Increased Pain/ Swelling, Increased Redness, Foul Smelling Discharge and Swelling at the incision site Call your doctor if you observe: Fever of 101 or Higher Change Dressing in: 2 days (2-3 days- port site; ok to remove neck opsite in 1 day) Follow Up Care Please Follow Up With: Lurdes Cormier MD When: In 10 days for permanent suture removal?call office for appointment Test Results: Test results from this visit will be discussed in further detail at your follow- up appointment, if applicable. Discharge Plan Admission Attending Provider: Lurdes Cormier Primary Care Provider: Lex Madsen Instructions Print Language: Brazilian Discharge Orders/Prescriptions Prescriptions: Continued Gemtesa 75 mg tablet 75 mg PO DAILY lisinopril-hydrochlorothiazide 20-12.5 mg tablet 1 tab PO QDAY Qty: 90 3RF Disposition Disposition (needs filled in before D/C Order can be placed): Home, Self Care
[2024-03-04 10:38] VITALS: BP 107/59; BP 152/76; PULSE 88; RESP 16; TEMP 36.2; O2SAT 97
[2024-03-04 10:40] VITALS: BP 124/56; BP 152/76; PULSE 87; RESP 16; O2SAT 97
[2024-03-04 10:45] VITALS: BP 127/61; BP 152/76; PULSE 85; RESP 16; O2SAT 99
[2024-03-04 10:50] VITALS: BP 130/64; BP 152/76; PULSE 85; RESP 16; TEMP 36.3; O2SAT 99
[2024-03-04 11:20] VITALS: BP 152/76
== END 2024-03-04 11:32 | disposition home or self-care (01) ==
LOC: SDC 07:31 → AC 07:32
PROVIDERS: Anesthesiology; PCP Family Medicine; Referring Provider Surgery; Visit Provider Surgery
PROC: (CPT 36561; principal; 2024-03-04 09:15)
DX: Z45.2 Encounter for adjustment and management of vascular access device (principal); C50.911 Malignant neoplasm of unspecified site of right female breast; Z17.0 Estrogen receptor positive status [ER+]; I10 Essential (primary) hypertension; Z79.899 Other long term (current) drug therapy
CPT/HCPCS: 36561; 00532; 71045; 77001; 84132; J3490

== ENCOUNTER → 2024-03-05 | Outpatient (CLI) | payer MEDICARE, SELFPAY ==
--- NOTE | 2024-03-05 10:48 | ECHODONC_ITS ---
Reason For Study: Pre Chemotherapy Procedure This was a 2D Doppler, Color Flow transthoracic echocardiogram. Myocardial strain analysis was performed in this exam to aid in the assessment of cardiac function. Exam performed in department. Left Ventricle Normal LV size. The global longitudinal strain = -18.6 % (normal). The estimated ejection fraction is 65 %. No evidence for diastolic dysfunction. No regional wall motion abnormalities noted. Right Ventricle Normal RV size. Normal systolic function. Atria The left and right atria are normal. No doppler evidence for ASD. Mitral Valve There is mild to moderate mitral annular calcification. There is no mitral valve stenosis. Trivial mitral valve insufficiency. Tricuspid Valve There is no tricuspid stenosis. No tricuspid valve insufficiency. Unable to estimate RV systolic pressure due to inadequate jet, pulmonary artery pressure probably normal. Aortic Valve There is no aortic stenosis. No aortic valve insufficiency. Pulmonic Valve There is no pulmonic valvular stenosis. Trivial pulmonic valve insufficiency. Great Vessels Normal aortic root. Pericardium/Pleural No pericardial effusion. MMode/2D Measurements & Calculations LVIDd: 4.0 cm IVSd: 1.1 cm Ao root diam: 3.3 cm LVIDs: 2.6 cm LVPWd: 1.0 cm LA dimension: 3.3 cm RVDd: 3.4 cm FS: 35.6 % LAV(MOD-bp): 58.7 ml LVAd ap4: 23.6 cm2 SV(MOD-sp4): 36.4 ml LAV(MOD-bp) Indexed: 29.7 ml/m2 LVLd ap4: 6.8 cm LAV(MOD-sp2): 66.9 ml EDV(MOD-sp4): 66.4 ml LAV(MOD-sp4): 50.3 ml EDV(sp4-el): 68.9 ml LVAs ap4: 13.7 cm2 LVLs ap4: 5.4 cm ESV(MOD-sp4): 30.0 ml ESV(sp4-el): 29.2 ml EF(MOD-sp4): 54.8 % EF(sp4-el): 57.6 % SV(sp4-el): 39.7 ml LA A4 area: 17.7 cm2 RA A4 area: 13.8 cm2 TAPSE: 2.0 cm Time Measurements MV dec time: 0.18 sec Doppler Measurements & Calculations MV E max bobo: 63.7 cm/sec Lat Peak E' Bobo: 7.7 cm/sec Med Peak E' Bobo: 6.0 cm/sec MV A max bobo: 75.5 cm/sec E/E' lat: 8.3 E/E' med: 10.7 MV E/A: 0.84 MV V2 max: 94.9 cm/sec MV P1/2t max bobo: 83.7 cm/sec Ao V2 max: 126.2 cm/sec MV max P.6 mmHg MV P1/2t: 64.6 msec Ao max P.4 mmHg MV V2 mean: 51.3 cm/sec MV dec slope: 379.4 cm/sec2 Ao V2 mean: 85.7 cm/sec MV mean P.3 mmHg Ao mean P.4 mmHg MV V2 VTI: 22.5 cm MVA(P1/2t): 3.4 cm2 Ao V2 VTI: 27.4 cm AV (velocity ratio): 0.87 LV V1 max: 112.7 cm/sec PA V2 max: 110.0 cm/sec LV V1 max P.1 mmHg PA V2 mean: 77.5 cm/sec LV V1 mean P.7 mmHg LV V1 mean: 77.0 cm/sec LV V1 VTI: 23.9 cm ECHO/ONC Echo Complete Interpretation Summary The estimated ejection fraction is 65 %. No evidence for diastolic dysfunction. Trivial mitral valve insufficiency. Ordering Physician: Em Torres Referring Physician: Em Torres Performed By: Ethan Owens RCS
== END | disposition home or self-care (01) ==
LOC: CVS 10:44
PROVIDERS: PCP Family Medicine; Referring Provider Internal Medicine Hematology & Oncology; Visit Provider Internal Medicine Hematology & Oncology
DX: I34.1 Nonrheumatic mitral (valve) prolapse (principal)
CPT/HCPCS: 93306; 93356; J7120

== ENCOUNTER 2024-03-06 18:20 | Emergency (ER) | payer MEDICARE, SELFPAY ==
[2024-03-06 18:20] VITALS: BP 183/93; PULSE 91; RESP 16; TEMP 36.6; O2SAT 98; BMI 32.4
--- NOTE | 2024-03-06 19:07 | CT_ITS ---
STUDY: CT ABDOMEN AND PELVIS WITH CONTRAST REASON FOR EXAM: Female, 68 years old. lower abd pain -- outpt labs done today RADIATION DOSAGE (If Supplied By Facility): CTDIvol = ( 15.27 ) mGy, DLP = ( 1066.91 ) mGycm TECHNIQUE: Transaxial images were obtained from the dome of the diaphragm to the symphysis pubis without oral contrast. IV 100mL Isovue-370 was administered. Sagittal and coronal images were reconstructed. Individualized dose optimization techniques were used for this CT. COMPARISON: None. FINDINGS: The visualized lung bases are unremarkable. The visualized portions of the heart are within normal limits. Normal liver. Normal gallbladder and extrahepatic biliary system. Normal spleen. Normal pancreas. Normal bilateral adrenal glands. Normal right kidney. Moderate hydronephrosis of the left kidney with stranding of the surrounding fat. There is moderate dilatation of the left ureter to the level of the mid ureter at the level aortic bifurcation where there is severe dilatation of the ureter measuring 25 mm in cross-sectional diameter. The remainder the ureters decompressed. No obstructing stone is seen. Clinical correlation is recommended to exclude hydronephrosis. Normal visualized stomach. Normal small intestine. Normal colon. The appendix is visualized and appears normal. Normal abdominal aorta. Normal inferior vena cava. Normal retroperitoneum. Normal urinary bladder. Tiny amount of free fluid in the pelvis. Normal abdominal wall. Normal osseous structures. CT/Abdomen/Pelvis W IV Cont ONLY IMPRESSION: Moderate left hydronephrosis and ureteral dilatation to the mid ureter where there is a focal dilatation of the ureter with a decompressed distal ureter and no obstructing stone. Significant stranding of the perinephric fat and clinical correlation is recommended to exclude pyelonephrosis.. N.B. : The above Results were Read Back by Andrea Santizo MD to Mayco Powell MD, and understanding confirmed on 03/06/2024 20:16:16 (ET). Electronically Signed: Andrea Santizo MD at 20:17 EDT ,
--- NOTE | 2024-03-06 19:08 | EDS_ITS ---
HPI HPI - GI History of Present Illness Chief Complaint: Abd Pain Informant: patient and spouse/S.O. Narrative Narrative: Lower abdominal pain gradual in onset 2 days ago or so, gradually worsening. Nausea and vomiting. Pain now radiating around to her low back nonlateralizing. Never had this before. Saw her doctor today for this and had some blood work done, the pain is getting worse and it is Saturday evening so she was concerned a bout waiting for the results after the weekend and came to the ER for further evaluation. She denies any urinary symptoms except for seeing a smear of pink blood when she wiped the last time she went. Normal bowel movements which have not relieved the pain. She has had nausea and vomiting. No chest discomfort or dyspnea. No fevers or chills. She has a history of endometrial cancer had a total hysterectomy and BSO, she then recently was just diagnosed with breast cancer that she has not started chemotherapy for yet. [facility] Medical History Port-A-Cath in place Anxiety Bladder disease History of diverticulitis History of echocardiogram Cancer of right female breast Encounter for education Wears hearing aid Wears glasses Wears contact lenses Post-menopausal Cancer Back pain Migraine headache Non-smoker History of edema History of stress test Cardiology follow-up encounter Hx of vaginal delivery Mitral valve prolapse Chronic headaches Back problem Anemia Arthritis Hypertension Home Medications ?Medication ?Instructions ?Recorded ?Last Taken ?Type vibegron 75 mg tablet (Gemtesa) 75 mg PO DAILY 03/13/23 03/04/24 06:00 History lisinopril 20 1 tab PO QDAY #90 tabs 03/14/23 03/03/24 Rx mg-hydrochlorothiazide 12.5 mg tablet hydrocodone-acetaminophen 5-325mg 1 tab PO Q6H PRN PRN Pain 4 days 03/06/24 Unknown Rx 5mg-325mg #16 TABLETS hyoscyamine sulfate 0.125 mg tablet See Rx Instructions PO Q6H PRN 03/06/24 Unknown Rx cramps #30 tabs ondansetron 8 mg disintegrating 8 mg PO Q8H PRN nausea and 03/06/24 Unknown Rx tablet vomiting #20 tabs ondansetron 8 mg disintegrating 8 mg PO Q8H PRN nausea and 03/06/24 Unknown Rx tablet vomiting #30 tabs Allergy/AdvReac Type Severity Reaction Status Date / Time No Known Allergies Allergy Verified 03/06/24 18:21 Family History Mother Diabetes Hypertension Osteoarthritis Colon cancer Grandfather Heart disease Sister Lupus Fibromyalgia Sister , December 2022 from post op PE Endometrial cancer Father Cancer prostate. Surgical History Hx of surgical procedure Status post total hysterectomy and bilateral salpingo-oophorectomy S/P cystoscopy Hx of right breast biopsy Hx of colonoscopy History of orthopedic surgery History of excision of pilonidal cyst Social History Smoking Status: Never smoker alcohol intake: never substance use type: does not use caffeine: Yes what type of physical activity do you participate in: walking frequency: 3-4 times per week seatbelt use: always do you feel safe at home: Yes additional social history: -Dony ROS ROS ED Constitutional Constitutional ED: Denies chills or fever(s) Eyes Eyes: Denies change in vision or diplopia ENT ENT ED: Denies rhinorrhea or sore throat Cardiovascular Cardiovascular: Denies chest pain or palpitations Respiratory/Chest Respiratory/Chest: Denies cough or dyspnea Gastrointestinal Gastrointestinal: Reports abdominal pain, nausea and vomiting; Denies diarrhea Genitourinary Genitourinary ED: Reports hematuria; Denies dysuria or urinary frequency Musculoskeletal Musculoskeletal: Reports back pain; Denies neck pain Integumentary Denies abscess or rash Neurologic Neurologic: Denies headache(s), paresthesias or weakness Psychiatric Psychiatric: Denies anxiety or suicidal thoughts EXAM Physical Exam Const Vital Signs: 03/06/24 18:20 03/06/24 21:02 Temperature 97.8 F Temperature Source Temporal Pulse Rate 91 83 Respiratory Rate 16 18 Blood Pressure 183/93 H 126/70 H Blood Pressure Mean 123 88 Pulse Ox 98 98 Oxygen Delivery Method Room Air Room Air Positive well nourished and well developed General Appearance ED: well developed and NAD HEENT Reports moist mucous membranes normocephalic and atraumatic Eyes PERRL and EOMs intact bilaterally Neck full ROM and supple Resp normal respiratory effort and clear to auscultation bilaterally Cardio regular rate, regular rhythm and no murmurs GI non-distended GI Narrative: Mildly tender McBurney's point in the right lower quadrant, left lower quadrant, left upper quadrant, epigastrium. No guarding or rebound tenderness. Auscultation: normoactive bowel sounds Palpation: soft Back/Spine no CVA tenderness General Back: other FROM Extremity normal to inspection General Extremety ED: Negative for edema, pulses abnormal or tenderness General Extremity: Negative for edema or pulses abnormal Neuro oriented x3, CN's II-XII intact bilaterally and no sensory deficits noted Sensorium / Orientation: awake and alert Motor Exam: strength 5/5 throughout Psych mental status grossly normal and thought process normal Skin no rashes or lesions noted and no wounds MDM MDM MDM Narrative Medical decision making narrative: I did review patient's labs which are in our system. She has mild hypokalemia, and elevated CRP significantly, but no leukocytosis. She has mild microscopic hematuria but no signs of infection on the urine. ESR normal. Renal function normal. Differential here includes kidney stone, diverticulitis, bowel obstruction, less likely recurrent mass. CT IV contrast indicated. Also give the patient pain and nausea medications along with some IV fluids. Radiologist called me and I discussed the CT results with him, I reviewed the images and the report and I agree with it. There is an unusual focal dilatation of the left mid ureter, distally it is decompressed and proximally it is dilated along with some hydronephrosis. There is no calcification present or obvious obstruction reason. Looking at her images from April of last year, this was not present then. In reviewing her labs, she does not have LINA, leukocytosis, nor does she have infection on the urinalysis. She has already been following with Dr. Landa, who I was able to reach tonight. She requests that we send a urine culture which we will do, have her follow-up closely after the weekend as an outpatient for further evaluation and testing patient is comfortable with that plan and I will offer a prescription for medication for pain. History & Record Review Additional record(s) reviewed:: Prior labs (Outpatient labs done today and urinalysis) Radiography Diagnostic Testing: Clinical Impression(s) from Imaging Studies Abdomen/Pelvis CT 03/06/24 19:07 IMPRESSION: Moderate left hydronephrosis and ureteral dilatation to the mid ureter where there is a focal dilatation of the ureter with a decompressed distal ureter and no obstructing stone. Significant stranding of the perinephric fat and clinical correlation is recommended to exclude pyelonephrosis.. N.B. : The above Results were Read Back by Andrea Santizo MD to Mayco Powell MD, and understanding confirmed on 03/06/2024 20:16:16 (ET). Electronically Signed: Andrea Santizo MD at 20:17 EDT , ADDENDUM: 03/06/242023 IMPRESSION: Moderate left hydronephrosis and ureteral dilatation to the mid ureter where there is a focal dilatation of the ureter with a decompressed distal ureter and no obstructing stone. Significant stranding of the perinephric fat and clinical correlation is recommended to exclude pyelonephrosis.. N.B. : The above Results were Read Back by Andrea Santizo MD to Mayco Powell MD, and understanding confirmed on 03/06/2024 20:16:16 (ET). Electronically Signed: Andrea Santizo MD at 20:17 EDT , Discharge Plan Triage Chief Complaint: Abd Pain ED Provider: Mayco Powell Dx/Rx/DC Orders Clinical Impression: Hydronephrosis of left kidney, Dilatation of left ureter Instructions: Understanding Hydronephrosis Prescriptions: New hydrocodone-acetaminophen 5-325 mg tablet 1 tab PO Q6H PRN PRN (Reason: Pain) 4 Days Qty: 16 0RF ondansetron 8 mg tablet,disintegrating 8 mg PO Q8H PRN (Reason: nausea and vomiting) Qty: 20 0RF No Action Gemtesa 75 mg tablet 75 mg PO DAILY ondansetron 8 mg tablet,disintegrating 8 mg PO Q8H PRN (Reason: nausea and vomiting) Qty: 30 0RF hyoscyamine sulfate 0.125 mg tablet See Rx Instructions PO Q6H PRN (Reason: cramps) Qty: 30 0RF Rx Instructions: 1-2 tabs orally every 6 hours PRN; lisinopril-hydrochlorothiazide 20-12.5 mg tablet 1 tab PO QDAY Qty: 90 3RF Primary Care Provider: Lex Madsen Referrals: Lex Madsen, [Primary Care Provider] - Ame aLnda MD [Med Staff - Active Staff] - As soon as possible Print Language: Mohawk Disposition Disposition: Home, Self Care
[2024-03-06] MEDS: Ketorolac 15 MG/ML Vial 10 MG IV (19:36)
[2024-03-06] MEDS: Ondansetron 4 MG/2 ML Vial IV (19:36)
[2024-03-06] MEDS: 0.9% Normal Saline (1000mL) 1,000 ML 125 ML IV (19:37)
[2024-03-06 21:02] VITALS: BP 126/70; PULSE 83; RESP 18; O2SAT 98
[2024-03-06 22:37] VITALS: BP 122/68; PULSE 78; RESP 18; TEMP 36.7; O2SAT 98
== END 2024-03-06 22:48 | disposition home or self-care (01) ==
PROVIDERS: Emergency Provider Emergency Medicine; PCP Family Medicine; Visit Provider Emergency Medicine
DX: N13.30 Unspecified hydronephrosis (principal); C50.919 Malignant neoplasm of unspecified site of unspecified female breast; N28.82 Megaloureter; E87.6 Hypokalemia; R31.29 Other microscopic hematuria; R11.2 Nausea with vomiting, unspecified; I10 Essential (primary) hypertension
CPT/HCPCS: 74177; 87086; 87088; 96361; 96374; 96375; 99283; Q9967; A4216; J2405

== ENCOUNTER → 2024-03-06 | Outpatient (CLI) | payer MEDICARE, SELFPAY ==
[2024-03-06 10:20] LABS: Bacteria 0 SEEN /hpf (None Seen); Mucous, Urine 0 SEEN /hpf (<or=2+); White Blood Cells 0 SEEN /hpf (0-5)
[2024-03-06 12:05] LABS: Absolute Lymphocyte Count 0.44 X10^3/uL (0.83-4.51); Basophil# 0.03 X10^3/uL; Basophil% 0.3 % (0-1); Eosinophil# 0.01 X10^3/uL; Eosinophils% 0.1 % (0-5); Hematocrit 35.1 % (37-47); Hemoglobin 11.5 g/dL (12.0-15.0); Lymphocyte # 0.44 X10^3/ul (0.83-4.51); Lymphocyte % 4.4 % (19-41); Mean Corp Hgb Conc 32.8 g/dL (32-36); Mean Corpuscular Volume 85.4 fL (81-99); Mean Platelet Vol. 10.1 fl (6.2-12.0); Monocyte# 0.42 X10^3/uL; Monocyte% 4.2 % (0-10); NRBC Flagged by Analyzer 0 % (0-5); Neutrophil # 8.99 X10^3/uL (2.7-7.7); Neutrophil % 90.7 % (47-70); POSITIVE DIFFERENTIAL YES; Platelet Count 392 K/mm3 (150-450); RBC Distribution Width CV 14.3 % (11.6-14.6); RBC Distribution Width SD 44.7 fl (35.1-43.9); Red Blood Count 4.11 M/mm3 (4.2-5.4); White Blood Count 9.9 K/mm3 (4.4-11.0)
[2024-03-06 12:20] LABS: Color, Urine Yellow (Yellow); Glucose, Dipstick Normal (Normal); Ketone-Dipstick 15 mg/dl (Negative); Leukocyte Esterase-Dipstick Negative /ul (Negative); Nitrite-Dipstick Negative (Negative); Occult Blood-Urine 25 /ul (Negative); Protein-Dipstick Negative (Negative); Urine Bilirubin Dipstick Negative (Negative); Urine Clarity Sl. Cloudy (Clear); Urine Urobilinogen Normal (Normal)
[2024-03-06 12:28] LABS: ALB/GLOB Ratio 0.8 RATIO (0.9-2.4); AST(SGOT) 21 U/L (15-37); Alanine Aminotransfer ALT/SGPT 17 U/L (13-56); Albumin, Serum 3.2 g/dL (3.2-5.0); Alkaline Phosphatase 58 U/L (45-117); Anion Gap 6 (5-15); BUN 18 mg/dL (7-18); BUN/Creat Ratio 17.8 RATIO (10-20); Calcium,Total 9.4 mg/dL (8.5-10.1); Chloride 98 mmol/L (98-107); Creatinine, Serum 1.01 mg/dL (0.55-1.02); EST Glomerular Filtration Rate 58 mL/min (>60); Est Glom Filt Rate - Afr Amer 70 mL/min (>60); Globulin 3.9 g/dL (2.2-4.2); Glucose 147 mg/dL (74-106); Potassium 3.2 mmol/L (3.5-5.1); Protein, Total 7.1 g/dL (6.4-8.2); Sodium Level 135 mmol/L (136-145)
[2024-03-06 12:41] LABS: Red Blood Cells-Urine 0-5 SEEN /hpf (0-5); Squamous Epithelial Cells - UA 0-5 SEEN /hpf (5-10)
[2024-03-06 12:52] LABS: Erythrocyte Sedimentation Rate 19 mm/hr (0-30)
== END | disposition home or self-care (01) ==
LOC: BIMLAB 09:53
PROVIDERS: PCP Family Medicine; Referring Provider Physician Assistant; Visit Provider Physician Assistant
DX: R10.33 Periumbilical pain (principal)
CPT/HCPCS: 36415; 80053; 81001; 85025; 85652; 86140; 87077; 87086; 87088; 87186

== ENCOUNTER → 2024-03-10 | Outpatient (CLI) | payer MEDICARE, SELFPAY ==
--- NOTE | 2024-03-10 11:23 | MRI_ITS ---
STUDY: BILATERAL BREAST MR WITHOUT AND WITH CONTRAST REASON FOR EXAM: Female, 68 years old. Right breast cancer. TECHNIQUE: Multi-sequence multi-echo imaging of both breasts was performed with a dedicated breast coil. T1-weighted and T2-weighted images were performed before the administration of contrast. T1-weighted images were also performed after the intravenous administration of 18 mL of Clariscan contrast. COMPARISON: Bilateral mammograms dated January 30, 2023, January 30, 2024 and right breast ultrasound dated January 30, 2024. Ultrasound-guided biopsy images dated February 11, 2024. FINDINGS: RIGHT BREAST: Scattered fibroglandular densities with minimal background enhancement. Irregular enhancing combination of mass and non-mass enhancement in the upper outer quadrant of the right breast measuring approximately 3.8 cm x 3.4 cm x 2.4 cm corresponding to the area of abnormality on the mammogram and right breast ultrasound. Enhancement begins in the subareolar region approximately 1.2 cm behind the nipple and extends posteriorly with the majority of the enhancing mass located in the posterior and upper aspect of the enhancement region. LEFT BREAST: Scattered fibroglandular densities with minimal background. No abnormal enhancing masses or areas of non-mass enhancement in the left breast. Solitary slightly enlarged right axillary lymph node measuring 1.4 cm in diameter with no definable fatty hilum. No abnormality in the visualized regions of the chest or liver. MRI/Breast Bilateral W/O and W IMPRESSION: Enhancing right index lesion of known carcinoma measuring 3.8 cm x 3.4 cm x 2.4 cm, originating approximately 1.2 cm behind the nipple and extending posteriorly with the majority of the enhancing mass located posteriorly and in the upper aspect of the enhancement region. Slightly enlarged right axillary lymph node measuring 1.4 cm in diameter with no definite/definable fatty hilum. Left breast shows no abnormality. CATEGORY: BIRADS Category 6: Known Biopsy-Proven Malignancy - Appropriate Action Should Be Taken. A letter regarding these results will be sent to the patient by the facility within 30 days. Electronically Signed: Rashid Hayward MD at 14:07 EDT ,
--- NOTE | 2024-03-10 13:18 | CT_ITS ---
STUDY: CT ABDOMEN AND PELVIS WITH AND WITHOUT CONTRAST REASON FOR EXAM: Female, 68 years old. Flank pain RADIATION DOSAGE (If Supplied By Facility): CTDIvol = ( 22.46 ) mGy, DLP = ( 3812.23 ) mGycm TECHNIQUE: Transaxial images were obtained from the dome of the diaphragm to the symphysis pubis without oral contrast. 100ML ISOVUE was administered. Sagittal and coronal images were reconstructed. Individualized dose optimization techniques were used for this CT. COMPARISON: 03/06/2024 FINDINGS: The visualized lung bases are unremarkable. The visualized portions of the heart are within normal limits. Normal liver. Normal gallbladder and extrahepatic biliary system. Normal spleen. Normal pancreas. Normal bilateral adrenal glands. Right kidney enhances normally without evidence of obstructive uropathy, or suspicious solid renal lesion. Essentially stable left hydronephrosis is noted with dilatation of the calyces and ureter to the level of the crossing iliac vessels. No obstructing stone is noted. The ureter distal to the crossing iliac vessels of normal course and caliber. There is extensive perinephric and periureteral inflammatory stranding and the ureter to the level of the crossing iliac vessels is serpiginous. Findings are essentially unchanged from the previous examination. No striations within the left kidney to suspect pyelonephritis. Incidental note is made of a retroaortic left renal vein. Normal visualized stomach. Nondistended fluid-filled small and large bowel loops are noted suggesting enteritis. There is some retained stool in the colon and a few scattered diverticula. The appendix is seen on coronal recon images 48 through 54 Normal abdominal aorta. Normal inferior vena cava. Normal retroperitoneum. Bladder is incompletely distended Normal abdominal wall. There are diffuse degenerative changes of the visualized lumbar spine. CT/CT Abd/Pelvis W/WO Contrast IMPRESSION: Persistent severe left hydronephrosis and hydroureter with perinephric and periureteral inflammatory stranding. The left ureter is dilated to the level of the crossing iliac vessels, there is no obstructing stone or mass identified. Findings are unchanged compared to the previous study from 03/06/2024. Remaining solid organs including the right kidney are unremarkable Nondistended fluid filled small and large bowel loops suggest enteritis Incidental note is made of a retroaortic left renal vein Electronically Signed: Ivan Prescott MD at 14:02 EDT ,
== END | disposition home or self-care (01) ==
LOC: MRI 11:00 → CT 13:17
PROVIDERS: PCP Family Medicine; Referring Provider Urology; Visit Provider Urology
DX: Z01.818 Encounter for other preprocedural examination (principal); C50.911 Malignant neoplasm of unspecified site of right female breast; N13.4 Hydroureter; R10.9 Unspecified abdominal pain; N13.30 Unspecified hydronephrosis; Z17.0 Estrogen receptor positive status [ER+]
CPT/HCPCS: 74178; 77049; A9575; Q9967; A4216; C8908

== ENCOUNTER 2024-03-12 12:47 | Day surgery (SDC) | payer MEDICARE, SELFPAY ==
[2024-03-12 13:19] VITALS: BP 164/66; PULSE 86; RESP 16; TEMP 37.2; O2SAT 97; BMI 32.0
[2024-03-12] MEDS: Lactated Ringers 1,000 ML 15 ML IV (13:36)
[2024-03-12] MEDS: Cefazolin 2 GM in 0.9% Normal Saline (100mL Bag) 100 ML IV (17:33)
[2024-03-12 18:05] VITALS: BP 136/59; BP 164/66; PULSE 87; RESP 16; TEMP 36.4; O2SAT 97
[2024-03-12 18:10] VITALS: BP 126/66; BP 164/66; PULSE 87; RESP 16; O2SAT 97
--- NOTE | 2024-03-12 18:10 | DCINST_ITS ---
Discharge Instructions Diet Discharge Diet: No restrictions Activity Discharge Activity: Return to Normal Activity Dressing / Incision Call your doctor if you observe: Fever of 101 or Higher, Inability to urinate and Inability to have a bowel movement Follow Up Care Please Follow Up With: Ame Landa MD When: The office will call her to make follow-up arrangements. Test Results: Test results from this visit will be discussed in further detail at your follow- up appointment, if applicable. Discharge Plan Admission Attending Provider: Ame Landa Primary Care Provider: Lex Madsen Instructions Print Language: Palestinian Discharge Orders/Prescriptions Prescriptions: New oxycodone-acetaminophen [Percocet] 5-325 mg tablet 1 tab PO Q8H PRN (Reason: pain) 5 Days Qty: 20 0RF Continued Gemtesa 75 mg tablet 75 mg PO DAILY ondansetron 8 mg tablet,disintegrating 8 mg PO Q8H PRN (Reason: nausea and vomiting) Qty: 30 0RF hydrocodone-acetaminophen 5-325 mg tablet 1 tab PO Q6H PRN PRN (Reason: Pain) 4 Days Qty: 16 0RF ciprofloxacin HCl [Cipro] 500 mg tablet 500 mg PO BID docusate sodium [Dulcolax Stool Softener (dss)] 100 mg capsule 100 mg PO DAILY PRN PRN (Reason: constipation) lisinopril-hydrochlorothiazide 20-12.5 mg tablet 1 tab PO QDAY Qty: 90 3RF Referrals / Follow Up: Lex Madsen DO [Primary Care Provider] - Disposition Disposition (needs filled in before D/C Order can be placed): Home, Self Care
--- NOTE | 2024-03-12 18:14 | PCM.OPRPT ---
Report of Operation Date of Procedure: 03/12/24 Pre-Operative Diagnosis: Left hydronephrosis and flank pain Post-Operative Diagnosis: Same Surgery/Procedure Performed:: Cystoscopy, left retrograde pyelogram, left ureteroscopy, left ureteral stent insertion Surgeon: Ame Landa Type of Anesthesia: General Description of Procedure: The patient is a 68-year-old female who is in the emergency room with acute onset left flank pain and was found to have a dilated left ureter specifically with hydronephrosis. Her urine culture at that time was positive and she has been treated with Cipro. She now presents for further evaluation. Informed consent has been obtained. The patient was taken to the operating room and placed on the operating room table. Anesthesia monitored the head, neck, airway, IV access and vital signs throughout the case. Once anesthesia was appropriately administered, the patient was placed into dorsolithotomy position and was prepped and draped in usual sterile fashion. The cystoscope was inserted through the urethra under direct visualization into the urinary bladder. The bladder mucosa was visualized in its entirety finding no evidence of mass, erythema, abnormality. The left ureteral orifice was intubated with an 8 [place] cone-tip catheter and contrast was injected in retrograde fashion under fluoroscopic visualization. There was a dilated portion of the ureter proximally. There a narrowing seen distally and the ureter deviated medially consistent with external compression. A 0.035 Glidewire was then placed into the renal pelvis. A flexible ureteroscope was passed over the wire without difficulty and it easily advanced all the way into the renal pelvis without evidence of obstruction or true narrowing. The wire was then removed and the entire length of the ureter was visualized directly finding no evidence of mass, erythema, foreign body or stone. The wire was then replaced and used for placement of a 6 [place] 26 cm JJ stent with good positioning in the renal pelvis as well as the urinary bladder. The bladder was then emptied and the cystoscope was removed. She was awakened and taken to the recovery room in good condition. There were no complications during the procedure. Grafts/Implants Used: 6 [place] by 26 cm JJ stent Complications None Admit VTE Documentation VTE Present on Admission: Yes VTE Mechan Device Prophylaxis: SCD's VTE Pharm Prophylaxis ordered?: No Reason prophylaxis not ordered:: Treatment Not Indicated
[2024-03-12 18:15] VITALS: BP 136/61; BP 164/66; PULSE 87; RESP 16; O2SAT 94
[2024-03-12 18:20] VITALS: BP 136/61; BP 164/66; PULSE 87; RESP 16; TEMP 37.2; O2SAT 96
== END 2024-03-12 18:56 | disposition home or self-care (01) ==
LOC: SDC 12:49 → AC 12:59
PROVIDERS: PCP Family Medicine; Referring Provider Urology; Visit Provider Urology
PROC: 0TJ98ZZ Inspection of Ureter, Via Natural or Artificial Opening Endoscopic (ICD-10-PCS; CPT 52352; principal; 2024-03-12 15:20)
DX: N13.30 Unspecified hydronephrosis (principal); I10 Essential (primary) hypertension; N39.0 Urinary tract infection, site not specified; Z79.899 Other long term (current) drug therapy
CPT/HCPCS: 52332; 00910; 76000; J7120; J2405

== ENCOUNTER → 2024-03-13 | Outpatient (CLI) | payer MEDICARE, SELFPAY ==
--- NOTE | 2024-03-13 12:06 | US_ITS ---
STUDY: ULTRASOUND BREAST - RIGHT REASON FOR EXAM: Female, 68 years old. History of right breast cancer with right axillary lymph node seen on breast MRI TECHNIQUE: Axial and longitudinal images of the RIGHT breast were performed with a high resolution ultrasound transducer. # OF IMAGES: 40 COMPARISON: MRI 03/10/2024, diagnostic mammogram and right breast ultrasound 01/30/2024 FINDINGS: RIGHT Breast: Multiple longitudinal and transverse ultrasound images of the right axilla confirm a 1.4 cm x 0.7 cm lymph node corresponding to the lymph node seen on MRI. This lymph node demonstrates thickening of the cortex up to 5 mm with mass effect on the fatty hilum (type V) is worrisome for a metastatic lymph node. Therefore, biopsy this lymph node is recommended.: US/Breast Limited Unilateral IMPRESSION: Ultrasound characterization of right axillary lymph node is worrisome for metastatic lymphadenopathy and biopsy is recommended. ASSESSMENT CATEGORY: BIRADS Category 4: Suspicious. Biopsy Should Be Considered. A letter regarding these results will be sent to the patient by the facility within 30 days. Electronically Signed: Andrea Santizo MD at 13:44 EDT ,
== END | disposition home or self-care (01) ==
LOC: OPUS 12:01
PROVIDERS: PCP Family Medicine; Referring Provider Nurse Practitioner; Visit Provider Nurse Practitioner
DX: C50.911 Malignant neoplasm of unspecified site of right female breast (principal); Z17.0 Estrogen receptor positive status [ER+]
CPT/HCPCS: 76642

== ENCOUNTER → 2024-03-17 | Outpatient (CLI) | payer MEDICARE, SELFPAY ==
--- NOTE | 2024-03-13 | IMM_PTH ---
PATIENT: KATHY URIAS LOC: [facility] U#:[id number] AGE/SX: 68/F ROOM: RE03/17/[address]: Dr. Lurdes Cormier MD : 1955 BED: DIS: 03/17/2024 SPEC #: [id number] RECD: 03/18/24 12:09 STATUS: EREN REQ #: [id number] TERESA: 03/13/24 00:[address]: Lurdes Cormier DEPT: IMMUNOHISTOCHEMISTRY RECD BY: Jed Myers ENTERED: 03/18/24 12:10 SP TYPE: IMMUNO OTHR DR: Dr. Lex Madsen, DO Tissues: Lymph node, NOS Procedures: CALPONIN-1 (add) CK5-6 (add) CK8 (add) E-CAD (add) HER2 SHAWNA (add) KI-67 (add) P53 (add) GA (add) P40 (add) MOC-31 (add) ER (initial) PHYSICIAN & [address] [address] SPECIMEN INFORMATION: Tissue Source: Right lymph node tissue Clinical Info: Right lymph node Specimen Number: [id number] CPT code: 40080,69617d2, METHODOLOGY: Deparaffinized sections of prefer/formalin-fixed tissue or PAP/DQ stained slides are incubated with monoclonal/polyclonal antibodies/oligonucleotide probes. Localization is made via biotin free immunoperoxidase method. Appropriate controls are performed and reacted as expected. Results on target cell population are indicated in the following table: RESULTS: ANTIBODY / CLONE RESULT P53 (DO-7) positive, wild type pattern Ki-67 (30-9) positive, 25% CK8 (88uzlcM18) positive CK5-6 (D5 & 1684) negative Calponin-1 (KV951G) negative P40 (BC28) negative E-Cad (ECH-6) positive MOC-31 (4561) positive, dim MORPHOMETRIC ANALYSIS ER (clone 6F11) >95%, strong intensity GA (clone 16/1E2) >95%, strong intensity Her-2Neu (clone CB11) 2+ IN SITU HYBRIDIZATION (DERREK) FOR HER2 Interpretation: Not Amplified HER2 : CEP-17 Ratio: 1.0 Average HER2 Signal: 2.25 Average CEP-17 Signal: 2.1 Number of Tumor Cells Scanned: 50 The prognostic test for HER2 is performed on formalin-fixed paraffin embedded tissue. A 3+ (positive) staining pattern is defined as intense, homogeneous, complete, circumferential membranous staining in >10% of contiguous tumor cells. A similar weak (2+) staining pattern is interpreted as equivocal. DERREK follow-up testing is recommended for all equivocal cases. Positivity/negativity for ER/GA is reported if > or < 1% of the tumor cells are immuno- reactive, respectively. The ASCO/CAP criteria is used for scoring. Reference: Journal of Clinical Oncology, 2013; 31:1792-7411 & 2010; 16:5948-4737. Ischemic time: Less than one hour. Duration of fixation: 7 Hrs; Sample Adequate: Yes. These assays have not been validated on decalcified tissues. Results should be interpreted with caution given the likelihood of false negativity on decalcified specimens or fixation greater than 72 hours. Alternative testing methods (FISH/dualISH for Her2; gene expression for ER) are recommended, if applicable. Please notify the laboratory if additional testing is required. These tests were developed and their performance characteristics determined by [facility]. They may not have been cleared or approved by the U.S. Food and Drug Administration. The FDA has determined that such clearance or approval is not necessary. The above immunohistochemical/dualISH markers are ordered and reviewed by the Pathologist. INTERPRETATION: Right lymph node, biopsy: Metastatic ductal carcinoma of breast origin. Positive for estrogen receptors (favorable prognostic indicator). Positive for progesterone receptors (favorable prognostic indicator). Negative for overexpression of RAD8hjc. MAXINE/ 03/20/2024
--- NOTE | 2024-03-13 12:30 | LYMN_PTH ---
PATIENT: KATHY URIAS [facility] U[facility][id number] AGE/SX: 68/F ROOM: RE03/17/[address]: Dr. Lurdes Cormier MD : 1955 BED: DIS: 03/17/2024 SPEC #: [id number] RECD: 03/17/24 13:40 STATUS: EREN REErika #: [id number] TERESA: 03/13/24 12:[address]: Lurdes Cormier DEPT: SURGICAL PATHOLOGY RECD BY: Dhiraj Garces ENTERED: 03/17/24 15:50 SP TYPE: LYMPH NODE OTHR DR: DO Dr. Em Sagastume MD Tissues: LYMPH NODE BIOPSY Procedures: Surgery Specimen Level IV HEADER OPERATION: Biopsy of right lymph node PRE-OP DIAGNOSIS: Right lymph node TISSUE SUBMITTED: Right lymph node tissue MICROSCOPIC DIAGNOSIS Right axillary lymph node, core biopsy: Metastatic carcinoma consistent with breast primary. See comment. AM/ 03/18/2024 COMMENT Immunohistochemistry ([id number]) supports the above diagnosis. MICROSCOPIC DESCRIPTION Slides are reviewed. GROSS DESCRIPTION Received in fixative is one container labeled with the patient's name and designated Right lymph node. The specimen consists of multiple elongated fragments of yung-yellow soft tissue measuring in aggregate 0.9 x 0.6 x 0.1cm. The specimen is totally submitted in one cassette. AM/mr 03/17/2024 TC:0 CPT: 61779
== END | disposition home or self-care (01) ==
LOC: LABSPEC 15:41
PROVIDERS: PCP Family Medicine; Referring Provider Surgery; Visit Provider Surgery
DX: C77.3 Secondary and unspecified malignant neoplasm of axilla and upper limb lymph nodes (principal)
CPT/HCPCS: 81002; 88305; 88341; 88342

== ENCOUNTER → 2024-03-27 | Outpatient (CLI) | payer MEDICARE, SELFPAY ==
--- NOTE | 2024-03-27 07:54 | MRI_ITS ---
EXAM: MR ABDOMEN WITHOUT AND WITH INTRAVENOUS CONTRAST CLINICAL INDICATION: mass at left iliac bifurcation, POSITIVE CT, HX OF CANCER TECHNIQUE: Multiplanar and multisequence MR images of the abdomen without and with intravenous contrast. CONTRAST: IV CLARISCAN 18ML COMPARISON: CT abdomen and pelvis March 10, 2024, March 06, 2024 and May 17, 2014 FINDINGS: LOWER THORAX: Not evaluated. LIVER: Not evaluated. GALLBLADDER AND BILE DUCTS: Not evaluated. PANCREAS: Not evaluated. SPLEEN: Not evaluated. ADRENALS: Not evaluated. KIDNEYS AND URETERS: Thick-walled mildly distended left ureter extends along the lateral margin of the retroperitoneal lesion (described below) but appears otherwise separate from the lesion. Partially visualized left kidney appears mildly hydronephrotic. Visualized portions of the right kidney and ureter are normal. Normal renal size and position. STOMACH AND BOWEL: Visualized bowel is normal. INTRAPERITONEAL SPACE: Normal. No ascites or other fluid collection. No free air. RETROPERITONEAL SPACE: 3.6 x 2.2 x 2.1 cm cystic mass noted within the retroperitoneum adjacent to the proximal left common iliac artery associated with adjacent enhancing soft tissue thickening within the retroperitoneum. VASCULATURE: The aorta and inferior vena cava appear normal. Abdominal aorta is non-dilated. LYMPH NODES: No retroperitoneal lymphadenopathy. MRI/MRI Abd WITH and W/O Contrast IMPRESSION: Cystic lesion within the retroperitoneum which may represent urinoma, lymphocele/lymphangioma, cystic mesothelioma or neoplasm. Electronically Signed: Nabor Albert MD at 10:55 EDT ,
[2024-03-27] MEDS: 0.9% Saline Lock 10 ML Syringe IV (09:15)
== END | disposition home or self-care (01) ==
PROVIDERS: PCP Family Medicine; Referring Provider Surgery; Visit Provider Surgery
DX: R93.5 Abnormal findings on diagnostic imaging of other abdominal regions, including retroperitoneum (principal)
CPT/HCPCS: 74183; A9575; A4216

== ENCOUNTER → 2024-04-08 | Outpatient (CLI) | payer MEDICARE, SELFPAY ==
[2024-04-08] VITALS (11 sets, daily range): BP systolic 129–177; BP diastolic 55–70; PULSE 86–98; RESP 16–18; TEMP 36.6; O2SAT 96–100; BMI 30.7
--- NOTE | 2024-04-08 | IMM_PTH ---
PATIENT: KATHY URIAS LOC: CT U#:[id number] AGE/SX: 68/F ROOM: RE04/08/[address]: Dr. Lurdes Cormier MD : 1955 BED: DIS: 04/08/2024 SPEC #: [id number] RECD: 04/09/24 11:16 STATUS: SOUMayra REQ #: [id number] TERESA: 04/08/24 00:[address]: Lurdes Cormier DEPT: IMMUNOHISTOCHEMISTRY RECD BY: Jed Myers ENTERED: 04/09/24 11:18 SP TYPE: IMMUNO OTHR DR: Dr. Lex Madsen, DO Tissues: Retroperitoneum, NOS Procedures: SMA (add) CD138 (add) CD45 (add) CEA (add) CK20 (add) CK7 (add) CK8 (add) DESMIN (add) IZZY (add) KI-67 (add) MPO (add) P53 (add) Vimentin (add) SMM (add) FACTOR VIII (add) Pankeratin (initial) CD68 (ADD) S-100 (add) PHYSICIAN & [address] [address] SPECIMEN INFORMATION: Tissue Source: 18 gauge x4 cores, abdominal mass biopsy Clinical Info: Mass- retroperitoneal Specimen Number: [id number] CPT code: 35621,96570m24 METHODOLOGY: Deparaffinized sections of prefer/formalin-fixed tissue or PAP/DQ stained slides are incubated with monoclonal/polyclonal antibodies/oligonucleotide probes. Localization is made via biotin free immunoperoxidase method. Appropriate controls are performed and reacted as expected. Results on target cell population are indicated in the following table: RESULTS: ANTIBODY / CLONE RESULT AE1-3 (AE1/AE3/PCK26) negative CK7 (OV-TL12/30) negative CK8 (52nzmvS75) negative CK20 (KS20.8) negative CD45 (RP2/18) positive, focal CD138 (B-A38) positive focal MPO (polyclonal) positive Vimentin (V9) positive Factor VIII (R Ag) negative CD68 (KP-1) positive Actin (1A4) positive, focal Myosin (simms1) positive, focal Desmin (CE-R-11) positive S-100 (4C4.9) negative IZZY (E29) negative CEA (11-7/TF-3HB-1) negative P53 (DO-7) negative, null pattern Ki-67 (30-9) negative These tests were developed and their performance characteristics determined by [facility]. They may not have been cleared or approved by the U.S. Food and Drug Administration. The FDA has determined that such clearance or approval is not necessary. The above immunohistochemical/dualISH markers are ordered and reviewed by the Pathologist. INTERPRETATION: Abdominal mass, Ct guided core biopsy: No evidence of malignancy. AM/mr 04/10/2024
--- NOTE | 2024-04-08 08:52 | CT_ITS ---
PROCEDURE: CT GUIDED biopsy of the right retroperitoneal cystic mass. DATE: April 08, 2024. INDICATION: Female, 68 years old. Right para vertebral cystic mass. PHYSICIAN: Dale Danielson M.D. RADIATION DOSAGE (If Supplied By Facility): CTDIvol = ( 25 ) mGy, DLP = ( 473.62 ) mGycm. Individualized dose optimization techniques were utilized. PROCEDURE: The risks, benefits, and alternatives to the procedure were explained to the patient. The specific risk of hemorrhage requiring further treatment or intervention was detailed and accepted. Follow-up instructions were discussed with the patient as well. Written informed consent was obtained. The patient was brought into the CT suite and placed in the prone position.. . An appropriate entry site was identified. The overlying skin was prepped and draped in the usual sterile fashion. 1% lidocaine was administered subcutaneously for local anesthesia. Conscious sedation was performed. The patient received 2 mg of Versed and 50 mcg of fentanyl intravenously. Conscious sedation was started at 9:35 AM and terminated at 9:50 AM. The patient was independently monitored by the department nurse. Under CT guidance, a total of 5 passes were performed utilizing a 18-gauge core biopsy needle. The specimens were then placed in the appropriate fluid and transported to the laboratory for analysis. Hemostasis was obtained. The patient tolerated the procedure well without immediate complications. CT/Biopsy/Inj or Needle Placement IMPRESSION: Successful CT guided biopsy of the right paraspinal cystic mass, as described above. Conscious sedation protocol was followed. Electronically Signed: Dale Danielson MD at 10:03 EDT ,
[2024-04-08] MEDS: 0.9% Normal Saline (250mL Bag) 250 ML 15 ML IV (09:12)
[2024-04-08] MEDS: fentaNYL 100 MCG/2 ML Ampul IV (09:35)
[2024-04-08] MEDS: Midazolam 2 MG/2 ML Syringe IV (09:35)
[2024-04-08] MEDS: Lidocaine 2% (20 ml mdv) 20 ML Vial INFILT (09:38)
--- NOTE | 2024-04-08 09:50 | TISS_PTH ---
PATIENT: KATHY URIAS LOC: CT U#:[id number] AGE/SX: 68/F ROOM: RE04/08/[address]: Dr. Lurdes Cormier MD : 1955 BED: DIS: 04/08/2024 SPEC #: [id number] RECD: 04/08/24 10:45 STATUS: EREN REErika #: [id number] TERESA: 04/08/24 09:[address]: Lurdes Cormier DEPT: SURGICAL PATHOLOGY RECD BY: Kennedi Lu ENTERED: 04/08/24 10:46 SP TYPE: Tissue Bx MATA DR: Dr. Lex Madsen, DO Tissues: Retroperitoneum, NOS Procedures: Surgery Specimen Level IV HEADER OPERATION: CT guided abdominal mass biopsy PRE-OP DIAGNOSIS: Mass- retroperitoneal TISSUE SUBMITTED: 18 gauge- x4 MICROSCOPIC DIAGNOSIS Retroperitoneal mass, CT guided core biopsy: Fat necrosis and fibrosis. Skeletal muscle tissue with reactive and focal degenerative change. No evidence of malignancy. See comment. / 04/09/2024 COMMENT Immunohistochemistry ([id number]) supports the above diagnosis. MICROSCOPIC DESCRIPTION Slides are reviewed. GROSS DESCRIPTION Received is one container labeled with the patient's name and not further designated. The specimen consists of multiple irregular and elongated fragments of yung tissue measuring in aggregate 1.0 x 0.2 x <0.1cm. The specimen is totally submitted in one cassette. / 04/08/2024 TC:5 CPT:37433
== END | disposition home or self-care (01) ==
LOC: CT 08:52
PROVIDERS: PCP Family Medicine; Referring Provider Surgery; Visit Provider Surgery
DX: K68.9 Other disorders of retroperitoneum (principal)
CPT/HCPCS: 49180; 77012; 88305; 88341; 88342; 99156; J7050; A4216

== ENCOUNTER → 2024-04-30 | Outpatient (CLI) | payer MEDICARE, SELFPAY ==
--- NOTE | 2024-04-30 10:07 | VDLE_ITS ---
Reason For Study: Bilateral leg swelling RIGHT LEFT GSV is normal. GSV is normal. CFV is compressible, spontaneous, phasic, CFV is compressible, spontaneous, phasic, competent and demonstrates normal competent, and demonstrates normal augmentation. augmentation. FV is compressible, spontaneous, phasic, FV is compressible, spontaneous, phasic, competent and demonstrates normal competent and demonstrates normal augmentation. augmentation. POP V is compressible, spontaneous, phasic, POP V is compressible, spontaneous, phasic, competent and demonstrates normal competent and demonstrates normal augmentation. augmentation. T/P Trunk is compressible. T/P Trunk is compressible. PTV is compressible. PTV is compressible. RT PerV is compressible. LT PerV is compressible. Procedure This is a venous duplex using B-mode, color flow and spectral Doppler. Exam performed in department. A preliminary report was called and/or faxed to [facility] [employer] and BRIA voicemail. VL/Venous Duplex US - Crispin Extrem Interpretation Summary Deep veins of the bilateral lower extremities are patent and compressible segme ntally. There is no evidence of bilateral lower extremity deep vein thrombosis. The bilateral great saphenous veins appear patent and compressible segmentally. Ordering Physician: Alley Walden Referring Physician: Ryan Madsen M.D. Performed By: Rozina Montana RVT
== END | disposition home or self-care (01) ==
LOC: CVS 10:07
PROVIDERS: PCP Family Medicine; Visit Provider Nurse Practitioner Family
DX: Z51.11 Encounter for antineoplastic chemotherapy (principal); C50.911 Malignant neoplasm of unspecified site of right female breast; C54.1 Malignant neoplasm of endometrium; R60.0 Localized edema; M79.89 Other specified soft tissue disorders; D64.9 Anemia, unspecified
CPT/HCPCS: 36591; 80053; 82728; 83540; 83550; 83735; 84100; 85025; 93970; J7040; J7050; J9045; A4216; J1453; J2469; J3490; J9171; J9306; Q5114

== ENCOUNTER 2024-05-07 13:33 | Day surgery (SDC) | payer MEDICARE, SELFPAY ==
[2024-05-07] VITALS (9 sets, daily range): BP systolic 88–134; BP diastolic 51–76; PULSE 88–98; RESP 12–16; TEMP 35.9–36.7; O2SAT 97–100; BMI 30.4
--- NOTE | 2024-05-07 14:12 | PCM.PRE.AN2 ---
ASA Classification* ASA Classification ASA Classification: 2 Assessment & Plan Anesthesia* Anesthesia Assessment Anesthesia Assessment: Discussed sedation and/or anesthesia options, risks, benefits, and alternatives with patient/parents/legal guardian/POA. Questions invited. The patient/parents/legal guardian/POA seems to understand and agrees to proceed with anesthesia plan. Reviewed the physical assessment, medical history, allergy history and patient home medications list prior to surgery/procedure/anesthetic and documented any changes. Performed airway and anesthesia risk assessments. Anesthesia Type Anesthesia Type: MAC History Source History Obtained from:: Patient and Chart Anesthesia Focused Assessment* Temperature: 97.9 F Pulse Rate: 98 Blood Pressure: 134/54 Respiratory Rate: 16 Pulse Ox: 100 Oxygen Delivery Method: Room Air Airway Assessment Mouth opens: >3 cm Mallampati Score: II Teeth Condition: Intact Neck Range of motion (ROM): Full ROM Pertinent Findings EKG Pertinent Findings:: March 25, 2023. Normal sinus rhythm. ECHO Pertinent Findings:: March 05, 2024. Ejection fraction 65% Consults Pertinent Findings:: April 03, 2024. Seen by Dr. Xiong. 1. patient has a history of breast cancer and is currently receiving chemotherapy. 2. she now has a new abdominal mass. 3. hypertension will adjust her meds by adding lisinopril. Focused Labs Anesthesia Preop lab: CBC WBC 13.0 K/mm3 (4.4-11.0) H 04/30/24 08:10 RBC 3.13 M/mm3 (4.2-5.4) L 04/30/24 08:10 Hgb 8.9 g/dL (12.0-15.0) L 04/30/24 08:10 Hct 26.9 % (37-47) L 04/30/24 08:10 Plt Count 432 K/mm3 (150-450) 04/30/24 08:10 CHEMISTRY Potassium 3.6 mmol/L (3.5-5.1) 04/30/24 08:10 Sodium 136 mmol/L (136-145) 04/30/24 08:10 Magnesium 1.2 mg/dL (1.6-2.6) L 04/30/24 08:10 Phosphorus 3.0 mg/dL (2.5-4.9) 04/30/24 08:10 BUN 19 mg/dL (7-18) H 04/30/24 08:10 Creatinine 0.73 mg/dL (0.55-1.02) 04/30/24 08:10 Glucose 195 mg/dL (74-106) H 04/30/24 08:10 POC Glucose 109 mg/dL (74-106) H 04/02/23 08:44 COAG PT 13.0 SECONDS (11.7-14.9) 03/25/23 08:44 Pre-Assessment Diagnosis/Proposed Procedure Planned Operative Procedure(s): (L) Cysto,Insertion Stent Anesthesia History 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 When Was Last Pacemaker Check QUESTION #4 FULL TEXT: You/Your Family Experience fever (hyperthermia) with Anesthesia Last Oral Intake Last Oral intake: Last Oral Intake NPO since 19:00 05/07/24 14:01 Meds taken in AM with sips of Yes 05/07/24 14:01 water? Meds patient instructed to take am of surgery PONV PONV - die cast die maker: PONV - die cast die maker Female Yes 05/05/24 14:03 HX of Motion Sickness No 05/05/24 14:03 HX of N/V After Surgery No 05/05/24 14:03 Non-Smoker Yes 05/05/24 14:03 Duration of Surgery greater No 05/05/24 14:03 than 60 minutes Number of Risk Factors 2 05/05/24 14:03 PONV Score Moderate Risk 05/05/24 14:03 Height & Weight Height & Weight: Anesthesia: Height & Weight Height 5 ft 6 in 05/07/24 14:01 Weight: 85.366 kg 05/07/24 14:01 Body Mass Index (BMI) 30.4 05/07/24 14:01 Respiratory Assessment Respiratory Assessment - die cast die maker: Respiratory Tract Infection Hx - die cast die maker Hx Respiratory Tract Infection No 05/05/24 14:03 STOP Sleep Apnea STOP Sleep Apnea - die cast die maker: STOP Sleep Apnea - die cast die maker Hx Hypertension Yes: CONTROLLED WITH MED 05/05/24 14:03 Hx Sleep Apnea No 05/05/24 14:03 CPAP BIPAP Do you snore loudly (louder No 05/05/24 14:03 than talking or can be heard Do you often feel tired/ No 05/05/24 14:03 fatigued/ sleepy during daytime? Has anyone observed you stop No 05/05/24 14:03 breathing during sleep? STOP Results Negative 05/05/24 14:03 QUESTION #5 FULL TEXT : Do you snore loudly (louder than talking or can be heard through closed doors)? Tobacco Use History Tobacco Use History - die cast die maker: Tobacco Use History - die cast die maker Tobacco Use Smoking Status Never smoker 05/05/24 14:03 Hx Tobacco Use No 05/05/24 14:03 Years Smoking Packs Smoked per Day Smoking Cessation Date was within the last 15 years Hx Smoking Cessation Date Hx Smoking Cessation Counseling Hematologic Medial History Hematologic Hx - die cast die maker: Hematologic Medical Hx - documentation spec Hx of Blood Transfusion No 05/05/24 14:03 Hx of Transfusion in last 3 No 05/05/24 14:03 Months Date of Last Transfusion (if within last 3 months) Ever experience any problems No 05/05/24 14:03 with transfusion(s)? Specify any problems Hx of Preganancy in last 3 No 05/05/24 14:03 Months Nurse Filling Out Transfusion VCHRISTIN 05/05/24 14:03 & Questions: Date: 05/05/24 05/05/24 14:03 Time: 14:04 05/05/24 14:03 Patient unable to answer at this time (ie. confused, unrespo /Reproduction History /Reproductive History - die cast die maker: /Reproductive Hx- die cast die maker Hx Now Gestational Age (in weeks): EDC: Hx Hx Para Hx Section SAB No 05/05/24 14:03 Active Medications Active Medications: Current Medications Generic Name Dose Route Start Last Admin Trade Name Freq PRN Reason Stop Dose Admin Cefazolin Sodium 2 gm/ Sodium 110 mls @ 150 mls/hr 05/07/24 15:20 Chloride IV 05/07/24 16:03 PREOP ONE Lactated Ringer's 1,000 mls @ 15 mls/hr 05/07/24 13:45 IV .Q48H MIGUEL A PFSH Medical History (Updated 05/05/24 @ 14:05 by Loulou Tom) Gastric reflux Acid reflux Edema of both lower legs Mass in the abdomen Hypomagnesemia Diarrhea Encounter for chemotherapy management Abnormal CT of the abdomen Port-A-Cath in place Anxiety Bladder disease History of diverticulitis History of echocardiogram Cancer of right female breast Encounter for education Wears hearing aid Wears glasses Wears contact lenses Post-menopausal Cancer Back pain Migraine headache Non-smoker History of edema History of stress test Cardiology follow-up encounter Hx of vaginal delivery Mitral valve prolapse Chronic headaches Back problem Anemia Arthritis Hypertension Home Medications ?Medication ?Instructions ?Recorded ?Last Taken ?Type vibegron 75 mg tablet (Gemtesa) 75 mg PO DAILY 03/13/23 05/06/24 07:00 History ondansetron 8 mg disintegrating 8 mg PO Q8H PRN nausea and 03/06/24 Unknown Rx tablet vomiting #30 tabs ibuprofen 200 mg capsule 800 mg PO Q6H PRN pain 03/19/24 Unknown History lisinopril 20 mg tablet 20 mg PO DAILY #90 tabs 04/03/24 05/07/24 07:00 Rx loperamide 2 mg capsule (Imodium 2 mg PO Q6H PRN loose stool 04/03/24 Unknown History A-D) lansoprazole 30 mg capsule,delayed 30 mg PO DAILY #30 caps 04/30/24 05/07/24 07:00 Rx release (Prevacid) magnesium oxide 400 mg PO TID 05/05/24 05/06/24 History potassium chloride 20 mEq 20 meq PO BID 05/05/24 05/06/24 History tablet,extended release(part/cryst) Allergy/AdvReac Type Severity Reaction Status Date / Time No Known Allergies Allergy Verified 05/07/24 13:58 Family History Mother Diabetes Hypertension Osteoarthritis Colon cancer Grandfather Heart disease Sister Lupus Fibromyalgia Sister , December 2022 from post op PE Endometrial cancer Father Cancer prostate. Surgical History (Updated 05/05/24 @ 14:03 by Loulou Tom) Hx of cystoscopy Hx of surgical procedure Status post total hysterectomy and bilateral salpingo-oophorectomy S/P cystoscopy Hx of right breast biopsy Hx of colonoscopy History of orthopedic surgery History of excision of pilonidal cyst Social History Smoking Status: Never smoker alcohol intake: never substance use type: does not use caffeine: Yes what type of physical activity do you participate in: walking frequency: 3-4 times per week seatbelt use: always do you feel safe at home: Yes additional social history: -Dony Review of Systems (Anesthesia) ROS Narrative System reviewed and no additional complaints, except as documented.
[2024-05-07] MEDS: Lactated Ringers 1,000 ML 15 ML IV (14:15)
[2024-05-07] MEDS: Cefazolin 2 GM in 0.9% Normal Saline (100mL Bag) 100 ML IV (15:04)
--- NOTE | 2024-05-07 15:06 | PCM.OPRPT ---
Report of Operation Date of Procedure: 05/07/24 Pre-Operative Diagnosis: Left ureteral obstruction with hydronephrosis and flank pain Post-Operative Diagnosis: Same Surgery/Procedure Performed:: Cystoscopy, left ureteral stent change Surgeon: Ame Landa Type of Anesthesia: General Description of Procedure: The patient is a 68-year-old female with a left periureteral mass with external compression of the left ureter. She has been having increasing left flank pain over the last couple of weeks and we have decided to change her indwelling ureteral stent early. Informed consent has been obtained. Patient was taken to the operating room and placed on the operating room table. Anesthesia monitored the head, neck, airway, IV access and vital signs throughout the case. Once anesthesia was appropriately administered, she was placed into dorsolithotomy position and was prepped and draped in usual sterile fashion. The cystoscope was inserted through the urethra under direct visualization into the urinary bladder. The left ureteral stent was observed and a 0.035 Glidewire was passed alongside the stent into the left renal pelvis is seen on fluoroscopy. The stent was grasped with graspers and removed without difficulty. A new 6 Prydeinig 26 cm JJ stent was then passed over the Glidewire with good positioning in the renal pelvis as well as the urinary bladder. The patient's bladder was then emptied and the case was terminated. She was awakened and taken to the recovery room in good condition. There were no complications during this procedure. Grafts/Implants Used: 6 Prydeinig by 26 cm JJ stent Complications None Admit VTE Documentation VTE Present on Admission: Yes VTE Mechan Device Prophylaxis: SCD's VTE Pharm Prophylaxis ordered?: No Reason prophylaxis not ordered:: Treatment Not Indicated
--- NOTE | 2024-05-07 15:09 | EX.PCM.DISCH ---
Discharge Instructions Diet Discharge Diet: No restrictions Activity Discharge Activity: Return to Normal Activity Dressing / Incision Call your doctor if you observe: Fever of 101 or Higher, Inability to urinate and Inability to have a bowel movement Follow Up Care Please Follow Up With: Ame Landa MD When: The office will call the patient to make follow-up arrangements. Test Results: Test results from this visit will be discussed in further detail at your follow-up appointment, if applicable. Discharge Plan Admission Attending Provider: Ame Landa Primary Care Provider: Lex Madsen Instructions Print Language: Martiniquais Discharge Orders/Prescriptions Prescriptions: New cephalexin 500 mg capsule 500 mg PO Q12 3 Days Qty: 6 0RF Continued Gemtesa 75 mg tablet 75 mg PO DAILY ibuprofen 200 mg capsule 800 mg PO Q6H PRN (Reason: pain) loperamide [Imodium A-D] 2 mg capsule 2 mg PO Q6H PRN (Reason: loose stool) lisinopril 20 mg tablet 20 mg PO DAILY Qty: 90 3RF ondansetron 8 mg tablet,disintegrating 8 mg PO Q8H PRN (Reason: nausea and vomiting) Qty: 30 0RF lansoprazole [Prevacid] 30 mg capsule,delayed release(DR/EC) 30 mg PO DAILY Qty: 30 2RF potassium chloride 20 mEq tablet,ER particles/crystals 20 meq PO BID magnesium oxide 400 mg magnesium capsule 400 mg PO TID Referrals / Follow Up: Lex Madsen DO [Primary Care Provider] - Disposition Disposition (needs filled in before D/C Order can be placed): Home, Self Care
--- NOTE | 2024-05-07 15:36 | PCM.POST.ANE ---
Anesthesia: Postop Eval I Current Vital Signs Temperature: 98.1 F Pulse Rate: 90 Blood Pressure: 90/76 Respiratory Rate: 12 Pulse Ox: 97 Oxygen Delivery Method: Room Air Assessment Airway patent: Yes Spontaneous unlabored respirations: Yes Mental status: Awake and Calm nausea: No Vomiting: No Anesthesia Complication: No Fluid Hydration Crystalloid volume administer (ml): 300 Total IV fluid infused: 300 Progress Note Anesthesia document: Postop Eval 1 completed: Yes
--- NOTE | 2024-05-08 11:19 | POSTOPAN2_ITS ---
Anesthesia Postop Eval I Sum Postop Eval Completion status Anesthesia document: Postop Eval 1 completed: Yes Anesthesia Postop Eval I Summary Anesthesia Postop Eval I Summary: Anesthesia Postop Eval I: Assessment Summary Airway patent Yes 05/07/24 15:36 [email or web address] Spontaneous unlabored Yes 05/07/24 15:36 [email or web address] respirations Mental status Awake,Calm 05/07/24 15:36 [email or web address] nausea No 05/07/24 15:36 [email or web address] Vomiting No 05/07/24 15:36 BRINE [email or web address] Anesthesia Postop Eval I: Fluid Summary Crystalloid volume administer 300 05/07/24 15:36 [email or web address] (ml) Colloids volume administered ( ml) Blood Product volume administered (ml) Total IV fluid infused 300 05/07/24 15:36 [email or web address] Anesthesia Postop Eval I: Summary Notes Anesthesia Complication No 05/07/24 15:36 [email or web address] Anesthesia Complication Comment: Post-operative progress note Anesthesia: Postop Eval II Evaluation Mental status: Awake and Calm Pain Level: 1 nausea: No Vomiting: No Complications Anesthesia Complication: No
--- NOTE | 2024-05-08 11:19 | PCM.POSTANE2 ---
Anesthesia Postop Eval I Sum Postop Eval Completion status Anesthesia document: Postop Eval 1 completed: Yes Anesthesia Postop Eval I Summary Anesthesia Postop Eval I Summary: Anesthesia Postop Eval I: Assessment Summary Airway patent Yes 05/07/24 15:36 ELECTRIC GAS APPLIANCES [email or web address] Spontaneous unlabored Yes 05/07/24 15:36 ELECTRIC GAS APPLIANCES [email or web address].[email or web address] respirations Mental status Awake,Calm 05/07/24 15:36 ELECTRIC GAS APPLIANCES [email or web address].[email or web address] nausea No 05/07/24 15:36 ELECTRIC GAS APPLIANCES [email or web address].[email or web address] Vomiting No 05/07/24 15:36 ELECTRIC GAS APPLIANCES [email or web address].[email or web address] Anesthesia Postop Eval I: Fluid Summary Crystalloid volume administer 300 05/07/24 15:36 ELECTRIC GAS APPLIANCES [email or web address].[email or web address] (ml) Colloids volume administered ( ml) Blood Product volume administered (ml) Total IV fluid infused 300 05/07/24 15:36 ELECTRIC GAS APPLIANCES [email or web address] Anesthesia Postop Eval I: Summary Notes Anesthesia Complication No 05/07/24 15:36 ELECTRIC GAS APPLIANCES [email or web address] Anesthesia Complication Comment: Post-operative progress note Anesthesia: Postop Eval II Evaluation Mental status: Awake and Calm Pain Level: 1 nausea: No Vomiting: No Complications Anesthesia Complication: No
== END 2024-05-07 16:22 | disposition home or self-care (01) ==
LOC: SDC 13:34 → AC 13:35
PROVIDERS: PCP Family Medicine; Referring Provider Urology; Visit Provider Urology
PROC: (CPT 52332; principal; 2024-05-07 15:10)
DX: N13.1 Hydronephrosis with ureteral stricture, not elsewhere classified (principal); R10.9 Unspecified abdominal pain; I10 Essential (primary) hypertension; N32.81 Overactive bladder; R35.1 Nocturia; N39.46 Mixed incontinence; Z79.899 Other long term (current) drug therapy
CPT/HCPCS: 52332; 00910; 76000; J7120; A4216; C2617; J2405

== ENCOUNTER 2024-07-01 08:48 | Day surgery (SDC) | payer MEDICARE, SELFPAY ==
[2024-07-01] VITALS (7 sets, daily range): BP systolic 125–155; BP diastolic 7–77; PULSE 84–100; RESP 16; TEMP 36.3–36.5; O2SAT 100; BMI 30.2
[2024-07-01] MEDS: Lactated Ringers 1,000 ML 15 ML IV (09:00)
--- NOTE | 2024-07-01 09:07 | PCM.PRE.AN2 ---
ASA Classification* ASA Classification ASA Classification: 2 Assessment & Plan Anesthesia* Anesthesia Assessment Anesthesia Assessment: Discussed sedation and/or anesthesia options, risks, benefits, and alternatives with patient/parents/legal guardian/POA. Questions invited. The patient/parents/legal guardian/POA seems to understand and agrees to proceed with anesthesia plan. Reviewed the physical assessment, medical history, allergy history and patient home medications list prior to surgery/procedure/anesthetic and documented any changes. Performed airway and anesthesia risk assessments. Anesthesia Type Anesthesia Type: MAC Anesthesia Focused Assessment* Airway Assessment Mouth opens: >3 cm Mallampati Score: II Focused Labs Anesthesia Preop lab: CBC WBC 5.1 K/mm3 (4.4-11.0) 06/25/24 10:20 RBC 2.39 M/mm3 (4.2-5.4) L 06/25/24 10:20 Hgb 7.7 g/dL (12.0-15.0) L 06/25/24 10:20 Hct 24.2 % (37-47) L 06/25/24 10:20 Plt Count 109 K/mm3 (150-450) L 06/25/24 10:20 CHEMISTRY Potassium 3.9 mmol/L (3.5-5.1) 06/25/24 10:20 Sodium 138 mmol/L (136-145) 06/25/24 10:20 Magnesium 1.2 mg/dL (1.6-2.6) L 06/25/24 10:20 Phosphorus 3.0 mg/dL (2.5-4.9) 04/30/24 08:10 BUN 12 mg/dL (7-18) 06/25/24 10:20 Creatinine 0.53 mg/dL (0.55-1.02) L 06/25/24 10:20 Glucose 112 mg/dL (74-106) H 06/25/24 10:20 POC Glucose 109 mg/dL (74-106) H 04/02/23 08:44 COAG PT 13.0 SECONDS (11.7-14.9) 03/25/23 08:44 Pre-Assessment Diagnosis/Proposed Procedure Planned Operative Procedure(s): CSCOPE Anesthesia History 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 When Was Last Pacemaker Check QUESTION #4 FULL TEXT: You/Your Family Experience fever (hyperthermia) with Anesthesia Last Oral Intake Last Oral intake: Last Oral Intake NPO since Meds taken in AM with sips of water? Meds patient instructed to take am of surgery PONV PONV - pick pulling machine tender: PONV - pick pulling machine tender Female Yes 06/29/24 11:51 HX of Motion Sickness No 06/29/24 11:51 HX of N/V After Surgery No 06/29/24 11:51 Non-Smoker Yes 06/29/24 11:51 Duration of Surgery greater No 06/29/24 11:51 than 60 minutes Number of Risk Factors 2 06/29/24 11:51 PONV Score Moderate Risk 06/29/24 11:51 Height & Weight Height & Weight: Anesthesia: Height & Weight Height 5 ft 6 in 06/25/24 11:10 Respiratory Assessment Respiratory Assessment - pick pulling machine tender: Respiratory Tract Infection Hx - pick pulling machine tender Hx Respiratory Tract Infection No 06/29/24 11:51 STOP Sleep Apnea STOP Sleep Apnea - pick pulling machine tender: STOP Sleep Apnea - pick pulling machine tender Hx Hypertension Yes: CONTROLLED WITH MED 06/29/24 11:51 Hx Sleep Apnea No 06/29/24 11:51 CPAP BIPAP Do you snore loudly (louder No 06/29/24 11:51 than talking or can be heard Do you often feel tired/ No 06/29/24 11:51 fatigued/ sleepy during daytime? Has anyone observed you stop No 06/29/24 11:51 breathing during sleep? STOP Results Negative 06/29/24 11:51 QUESTION #5 FULL TEXT : Do you snore loudly (louder than talking or can be heard through closed doors)? 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 Specify any problems Hx of Preganancy in last 3 No 06/29/24 11:51 Months Nurse Filling Out Transfusion DSCHRIBER 06/29/24 11:51 & Questions: Date: 06/29/24 06/29/24 11:51 Time: 11:52 06/29/24 11:51 Patient unable to answer at this time (ie. confused, unrespo /Reproduction History /Reproductive History - pick pulling machine tender: /Reproductive Hx- pick pulling machine tender Hx Now No 06/29/24 11:51 Gestational Age (in weeks): EDC: Hx Hx Para Hx Section SAB No 06/29/24 11:51 Active Medications Active Medications: Current Medications Generic Name Dose Route Start Last Admin Trade Name Freq PRN Reason Stop Dose Admin Lactated Ringer's 1,000 mls @ 15 mls/hr 07/01/24 09:00 IV .Q48H MIGUEL A PFSH Medical History (Updated 06/29/24 @ 11:58 by Josefina Altamirano) Blood in urine Rectal bleeding Diarrhea due to drug Prerenal azotemia Dysuria Anemia due to chronic blood loss Gastric reflux Acid reflux Edema of both lower legs Mass in the abdomen Hypomagnesemia Diarrhea Encounter for chemotherapy management Abnormal CT of the abdomen Port-A-Cath in place Anxiety Bladder disease History of diverticulitis History of echocardiogram Cancer of right female breast Encounter for education Wears hearing aid Wears glasses Wears contact lenses Post-menopausal Cancer Back pain Migraine headache Non-smoker History of edema History of stress test Cardiology follow-up encounter Hx of vaginal delivery Mitral valve prolapse Chronic headaches Back problem Anemia Arthritis Hypertension Home Medications ?Medication ?Instructions ?Recorded ?Last Taken ?Type vibegron 75 mg tablet (Gemtesa) 75 mg PO DAILY 03/13/23 05/06/24 07:00 History ibuprofen 200 mg capsule 800 mg PO Q6H PRN pain 03/19/24 Unknown History lisinopril 20 mg tablet 20 mg PO DAILY #90 tabs 04/03/24 05/07/24 07:00 Rx loperamide 2 mg capsule (Imodium 2 mg PO Q6H PRN loose stool 04/03/24 Unknown History A-D) lansoprazole 30 mg capsule,delayed 30 mg PO DAILY #30 caps 04/30/24 05/07/24 07:00 Rx release (Prevacid) magnesium oxide 400 mg PO TID #90 caps 06/09/24 Unknown Rx ondansetron 8 mg disintegrating 8 mg PO Q8H PRN nausea and 06/11/24 Unknown Rx tablet vomiting #30 tabs potassium chloride 20 mEq 20 meq PO BID #60 tabs 06/11/24 Unknown Rx tablet,extended release(part/cryst) Allergy/AdvReac Type Severity Reaction Status Date / Time No Known Allergies Allergy Verified 06/29/24 11:49 Family History Mother Diabetes Hypertension Osteoarthritis Colon cancer Grandfather Heart disease Sister Lupus Fibromyalgia Sister , December 2022 from post op PE Endometrial cancer Father Cancer prostate. Surgical History (Updated 06/29/24 @ 11:58 by oJsefina Altamirano) History of renal stent Hx of cystoscopy Hx of surgical procedure Status post total hysterectomy and bilateral salpingo-oophorectomy S/P cystoscopy Hx of right breast biopsy Hx of colonoscopy History of orthopedic surgery History of excision of pilonidal cyst Social History Smoking Status: Never smoker alcohol intake: never substance use type: does not use caffeine: Yes what type of physical activity do you participate in: walking frequency: 3-4 times per week seatbelt use: always do you feel safe at home: Yes additional social history: -Dony Review of Systems (Anesthesia) ROS Narrative System reviewed and no additional complaints, except as documented.
--- NOTE | 2024-07-01 09:43 | PCM.HP.BLA ---
History and Physical Date of Admission: 07/01/24 Date of Service: 06/05/24 MR#: [id number] Acct: [id number] Name: KATHY URIAS Rep #: [id number] : 1955 Provider: Dr. Lurdes Cormier MD Age/Sex: 68/F Location: [facility] Status: Signed Intake Vital Signs 05/21/2408:08 06/04/2413:49 06/05/2409:33 Height 5 ft 6 in 5 ft 6 in 5 ft 6 in Weight: 191 lb 3 oz 190 lb BMI 30.8 30.7 BP 134/63 H 149/72 H Blood Pressure Location Rt brachial Rt brachial Position Sitting Sitting Respiration 18 18 Pulse 95 74 Pulse Source Monitor Monitor Temp 98.5 F 97.3 F L Temp Source Temporal Pulse Oximetry (%) 100 97 Oxygen Delivery Method room air room air Intake Visit Reasons: RECTAL BLEEDING Chief Complaint: rectal bleeding Is patient in pain?: No Allergies No Known Allergies Allergy (Verified 06/05/24 09:34) Medications ?Medication ?Instructions ?Recorded ?Confirmed ?Type vibegron 75 mg tablet (Gemtesa) 75 mg PO DAILY 03/13/23 06/05/24 History ondansetron 8 mg disintegrating 8 mg PO Q8H PRN nausea and 03/06/24 06/05/24 Rx tablet vomiting #30 tabs ibuprofen 200 mg capsule 800 mg PO Q6H PRN pain 03/19/24 06/05/24 History lisinopril 20 mg tablet 20 mg PO DAILY #90 tabs 04/03/24 06/05/24 Rx loperamide 2 mg capsule (Imodium 2 mg PO Q6H PRN loose stool 04/03/24 06/05/24 History A-D) lansoprazole 30 mg capsule,delayed 30 mg PO DAILY #30 caps 04/30/24 06/05/24 Rx release (Prevacid) magnesium oxide 400 mg PO TID 05/05/24 06/05/24 History potassium chloride 20 mEq 20 meq PO BID 05/05/24 06/05/24 History tablet,extended release(part/cryst) phenazopyridine 200 mg tablet 200 mg PO TID PRN pain 6 doses #6 06/04/24 06/05/24 Rx (Pyridium) tabs Have you fallen in the past year?: No PFSH Medical History Dysuria Anemia due to chronic blood loss Gastric reflux Acid reflux Edema of both lower legs Mass in the abdomen Hypomagnesemia Diarrhea Encounter for chemotherapy management Abnormal CT of the abdomen Port-A-Cath in place Anxiety Bladder disease History of diverticulitis History of echocardiogram Cancer of right female breast Encounter for education Wears hearing aid Wears glasses Wears contact lenses Post-menopausal Cancer Back pain Migraine headache Non-smoker History of edema History of stress test Cardiology follow-up encounter Hx of vaginal delivery Mitral valve prolapse Chronic headaches Back problem Anemia Arthritis Hypertension Surgical History History of renal stent Hx of cystoscopy Hx of surgical procedure Status post total hysterectomy and bilateral salpingo-oophorectomy S/P cystoscopy Hx of right breast biopsy Hx of colonoscopy History of orthopedic surgery History of excision of pilonidal cyst Family History Mother Diabetes Hypertension Osteoarthritis Colon cancerGrandfather Heart diseaseSister Lupus FibromyalgiaSister , December 2022 from post op PE Endometrial cancerFather Cancer prostate. Social History Smoking Status: Never smoker alcohol intake: never substance use type: does not use caffeine: Yes what type of physical activity do you participate in: walking frequency: 3-4 times per week seatbelt use: always do you feel safe at home: Yes additional social history: -Dony HPI HPI HPI: 68-year-old female well-known to me presents for colonoscopy and EGD due to anemia and rectal bleeding. Patient currently has 2 more cycles of neoadjuvant chemotherapy for breast cancer on 06/11 and 07/02. Patient states she has been having diarrhea and having some rectal bleeding with that but she is not having rectal bleeding every time but it is bright red. Patient does have known hemorrhoids as her last colonoscopy was in March 2019 which was negative except for hemorrhoids patient's does have family history of colon cancer in her mom. Patient was also recently diagnosed with a UTI and had a hematuria with that currently on antibiotics and that is improving. Patient states she does occasionally get nausea but usually more with the steroids for the chemo which she does take Prilosec during most days. Patient otherwise denies nausea or reflux symptoms. Patient did admit to some lower abdominal pain but that it improved with the UTI being treated denies upper abdominal pain. ROS General General: Yes weight change and breast cancer; No appetite, fatigue or colon cancer HEENT HEENT: No difficulty swallowing, eye injury, eye surgery, swollen glands or hoarseness Endo Endocrine: No thyroid disease, diabetes mellitus, thyroid cancer, Hair loss, heat intolerance or cold intolerance Skin Skin: No rash or changing moles Breast Breast: Yes right breast lump, abnormal mammogram and abnormal US Musc Musculoskeletal: Yes arthritis; No back problems, rheumatoid arthritis, gout or joint pain Cardio Cardiovascular: Yes high blood pressure; No murmur, pacemaker, heart disease, atrial fibrillation, heart attack, heart stent, palpitations, shortness of breat with exertion or chest pain Psych Psychiatric: Yes anxiety; No depression or hearing voices Resp Respiratory: No shortness of breath, No sleep apnea, No cough, No COPD, No asthma, No emphysema and No wheezing Gastro Gastrointestinal: No abdominal pain, Yes nausea or vomiting, Yes diarrhea, No constipation, Yes blood in stool, No acid reflux, Yes hemorrhoids, No ulcers, No gallbladder problem and No black,tarry stools Peter Hematologic: No blood thinners, No blood disorders, No bleeding, Yes anemia and No blood clots Neuro Neurologic: No numbness and No tingling Exam Const General: cooperative, comfortable and no acute distress HENMT Head: normocephalic and atraumatic Neck Neck: supple Resp Effort & Inspection: normal respiratory effort Cardio Rate: regular rate GI Inspection: non-distended Palpation: soft and nontender Skin General: no rashes or lesions noted Neuro General: CN's II-XI intact bilaterally Extrem General: normal to inspection Psych Mental Status: mental status grossly normal Attitude: cooperative Assessment and Plan Assessment and Plan (1) BRBPR (bright red blood per rectum): Status: Acute (2) Anemia due to chronic blood loss: Status: Chronic (3) Breast cancer: Status: Acute Plan Will plan to check EGD and colonoscopy prior to patient's chemotherapy appointment on 07/02. I have discussed the above with the patient. I have offered the patient esophagogastroduodenoscopy and colonoscopy for evaluation. I have explained the risks/benefits of the procedure and described the procedure. I have discussed the risks with the patient, including but not limited to: infection, bleeding, perforation of the GI tract requiring emergency surgery, inability to complete the procedure, injury to any internal organs, complications of anesthesia, etc. - the patient understands and agrees to proceed. I have answered all the patient's questions to the patient's satisfaction and the patient has no further questions. The patient has been given instructions for the colon cleansing preparation. 1 day of clears, MiraLAX Dulcolax prep. Lurdes Cormier M.D. Pager: [phone] [facility] [address] [place] [address], [facility], [address] [place] [address] Office: [phone] Coding Level of Care Code Off vis,est,level 3 Diagnoses BRBPR (bright red blood per rectum) K62.5 Anemia due to chronic blood loss D50.0 Breast cancer C50.919 Clinical Quality Measures Falls Risk Screening/Assistive Devices Have you fallen in the past year?: No 06/05/24 1000 <Electronically signed by Lurdes Cormier MD> Date Lurdes Cormier MD
--- NOTE | 2024-07-01 10:15 | COLBX_PTH ---
PATIENT: KATHY URIAS LOC: EN U#:[id number] AGE/SX: 68/F ROOM: RE07/01/[address]: Dr. Lurdes Cormier MD : 1955 BED: DIS: 07/01/2024 SPEC #: [id number] RECD: 07/02/24 08:48 STATUS: EREN EMMANUEL #: [id number] TERESA: 07/01/24 10:[address]: Lurdes Cormier DEPT: SURGICAL PATHOLOGY RECD BY: Dhiraj Garces ENTERED: 07/02/24 10:11 SP TYPE: COLON BX OTHR DR: Dr. Lex Madsen, DO Tissues: A - Gastric mucous membrane B - Rectum, NOS Procedures: Surgery Specimen Level IV HEADER OPERATION: Colonoscopy with biopsy, EGD with biopsy PRE-OP DIAGNOSIS: Bright red blood per rectum, anemia due to chronic blood loss, breast cancer TISSUE SUBMITTED: A- Pre-pyloric biopsy, B- Rectum biopsy MICROSCOPIC DIAGNOSIS A. Pre-pyloric region, biopsy: Chronic gastritis. See comment. B. Rectum, biopsy: Mild architecture of change. Focal vascular thrombi. / 07/03/2024 COMMENT A. The results of immunohistochemistry for Helicobacter pylori will be reported separately ([id number]). Clinical correlation is suggested. MICROSCOPIC DESCRIPTION Slides are reviewed. GROSS DESCRIPTION A. Received in fixative is one container labeled with the patient's name and designated Pre-pyloric biopsy. The specimen consists of two irregular fragments of light yung soft tissue that in aggregate measure 0.5 x 0.2 x 0.1 cm. The specimen is totally submitted in one cassette. B. Received in fixative is one container labeled with the patient's name and designated Rectum biopsy. The specimen consists of one irregular fragment of light yung soft tissue that measures 0.4 x 0.2 x 0.1 cm. The specimen is totally submitted in one cassette. 07/02/2024 TC:3 CPT:60971e2
--- NOTE | 2024-07-01 10:15 | IMM_PTH ---
PATIENT: KATHY URIAS LOC: EN U#:[id number] AGE/SX: 68/F ROOM: RE07/01/[address]: Dr. Lurdes Cormier MD : 1955 BED: DIS: 07/01/2024 SPEC #: [id number] RECD: 07/02/24 10:12 STATUS: EREN REQ #: [id number] TERESA: 07/01/24 10:[address]: Lurdes Cormier DEPT: IMMUNOHISTOCHEMISTRY RECD BY: Jed Myers ENTERED: 07/02/24 10:12 SP TYPE: IMMUNO OTHR DR: Dr. Lex Madsen, DO Tissues: A - Gastric mucous membrane Procedures: H Pylori (initial) PHYSICIAN & INSTITUTION [place] [address] SPECIMEN INFORMATION: Tissue Source: A- Pre-pyloric biopsy Clinical Info: Bright red blood per rectum, anemia due to chronic blood loss, breast cancer Specimen Number: [id number] CPT code: 18082 METHODOLOGY: Deparaffinized sections of prefer/formalin-fixed tissue or PAP/DQ stained slides are incubated with monoclonal/polyclonal antibodies/oligonucleotide probes. Localization is made via biotin free immunoperoxidase method. Appropriate controls are performed and reacted as expected. Results on target cell population are indicated in the following table: RESULTS: ANTIBODY / CLONE RESULT Block A H Pylori (polyclonal) negative These tests were developed and their performance characteristics determined by [facility]. They may not have been cleared or approved by the U.S. Food and Drug Administration. The FDA has determined that such clearance or approval is not necessary. The above immunohistochemical/dualISH markers are ordered and reviewed by the Pathologist. INTERPRETATION: A. Pre-pyloric, biopsy: Negative for Helicobacter pylori organisms. MAXINE/ 07/03/2024
--- NOTE | 2024-07-01 11:41 | OP.COLON_ITS ---
Patient Name: Lyssa Vasquez Procedure Date: 07/01/2024 11:18 AM Date of : 1955 Age: 68 Procedure: Colonoscopy Indications: Rectal bleeding, Iron deficiency anemia Providers: Lurdes Cormier MD Referring MD: Lurdes Cormier MD Medicines: Monitored Anesthesia Care Patient Profile: Last Colonoscopy: March 2019. This is a 68 year old female. Complications: No immediate complications. Procedure: Pre-Anesthesia Assessment: - Prior to the procedure, a History and Physical was performed, and patient medications and allergies were reviewed. The patient's tolerance of previous anesthesia was also reviewed. The risks and benefits of the procedure and the sedation options and risks were discussed with the patient. All questions were answered, and informed consent was obtained. Prior Anticoagulants: The patient has taken no anticoagulant or antiplatelet agents. ASA Grade Assessment: Per anesthesia. After reviewing the risks and benefits, the patient was deemed in satisfactory condition to undergo the procedure. After I obtained informed consent, the scope was passed under direct vision. Throughout the procedure, the patient's blood pressure, pulse, and oxygen saturations were monitored continuously. The pediatric colonoscope was introduced through the anus and advanced to the cecum, identified by the ileocecal valve. The colonoscopy was performed without difficulty. The patient tolerated the procedure well. The quality of the bowel preparation was good. Scope In: 11:19:40 AM Scope Withdrawal Time 0 hours 5 minutes 44 seconds Scope Out: 11:34:34 AM Total Procedure Duration Time 0 hours 14 minutes 54 seconds Findings: Hemorrhoids were found on perianal exam. Non-bleeding external and internal hemorrhoids were found. The hemorrhoids were Grade III (internal hemorrhoids that prolapse but require manual reduction). A diffuse area of moderately erythematous mucosa was found in the rectum. Biopsies were taken with a cold forceps for histology. The exam was otherwise without abnormality. Impression: - Hemorrhoids found on perianal exam. - Non-bleeding external and internal hemorrhoids. - Erythematous mucosa in the rectum. Biopsied. - The examination was otherwise normal. Recommendation: - Discharge patient to home. - Resume previous diet. - Continue present medications. - Await pathology results. - Repeat colonoscopy in 5-10 years for surveillance based on pathology results. Procedure Code(s): --- Professional --- 03006, Colonoscopy, flexible; with biopsy, single or multiple Diagnosis Code(s): --- Professional --- K64.2, Third degree hemorrhoids K62.89, Other specified diseases of anus and rectum K62.5, Hemorrhage of anus and rectum D50.9, Iron deficiency anemia, unspecified CPT copyright 2021 [employer]. All rights reserved. The codes documented in this report are preliminary and upon cigar making supervisor review may be revised to meet current compliance requirements. MD Lurdes Carrillo MD 07/01/2024 11:40:35 AM This report has been signed electronically. Number of Addenda: 0 Note Initiated On: 07/01/2024 11:18 AM
--- NOTE | 2024-07-01 11:41 | OP.CCLET_ITS ---
07/01/2024 Lex Madsen Re : Colonoscopy procedure for Lyssa Vasquez Dear Dr. Madsen This procedure was performed on Monday, July 01, 2024. My impressions and recommendations are as follows: Impressions : - Hemorrhoids found on perianal exam. - Non-bleeding external and internal hemorrhoids. - Erythematous mucosa in the rectum. Biopsied. - The examination was otherwise normal. Recommendations : - Discharge patient to home. - Resume previous diet. - Continue present medications. - Await pathology results. - Repeat colonoscopy in 5-10 years for surveillance based on pathology results. My findings are described in the full procedure note, which is enclosed. If I can be of further assistance, please feel free to contact me at Doctor phone number(s): , Work: . Sincerely, MD Lurdes Carrillo MD 07/01/2024 11:40:35 AM This report has been signed electronically.
--- NOTE | 2024-07-01 11:43 | PCM.POST.ANE ---
Anesthesia: Postop Eval I Current Vital Signs Temperature: 97.3 F Pulse Rate: 84 Blood Pressure: 125/63 Respiratory Rate: 16 Pulse Ox: 100 Oxygen Delivery Method: Room Air Assessment Airway patent: Yes Spontaneous unlabored respirations: Yes Mental status: Awake and Calm nausea: No Vomiting: No Anesthesia Complication: No Fluid Hydration Crystalloid volume administer (ml): 500 Total IV fluid infused: 500 Progress Note Anesthesia document: Postop Eval 1 completed: Yes
--- NOTE | 2024-07-01 11:45 | OP.EGD_ITS ---
Patient Name: Lyssa Vasquez Procedure Date: 07/01/2024 11:05 AM Date of : 1955 Age: 68 Procedure: Upper GI endoscopy Indications: Iron deficiency anemia, Heartburn Providers: Lurdes Cormier MD Referring MD: Lurdes Cormier MD Medicines: Monitored Anesthesia Care Patient Profile: This is a 68 year old female. Complications: No immediate complications. Procedure: Pre-Anesthesia Assessment: - Prior to the procedure, a History and Physical was performed, and patient medications and allergies were reviewed. The patient's tolerance of previous anesthesia was also reviewed. The risks and benefits of the procedure and the sedation options and risks were discussed with the patient. All questions were answered, and informed consent was obtained. Prior Anticoagulants: The patient has taken no anticoagulant or antiplatelet agents. ASA Grade Assessment: Per anesthesia. After reviewing the risks and benefits, the patient was deemed in satisfactory condition to undergo the procedure. After obtaining informed consent, the endoscope was passed under direct vision. Throughout the procedure, the patient's blood pressure, pulse, and oxygen saturations were monitored continuously. The pediatric colonoscope was introduced through the mouth, and advanced to the duodenal bulb. The upper GI endoscopy was technically difficult and complex due to unable to pass to 2nd portion of duodenum and the bulb friable w contact. The patient tolerated the procedure well. Scope In: 11:13:51 AM Scope Out: 11:18:32 AM Total Procedure Duration Time 0 hours 4 minutes 41 seconds Findings: The Z-line was variable. The cardia and gastric fundus were normal on retroflexion. Mildly erythematous mucosa without bleeding was found in the prepyloric region of the stomach. Biopsies were taken with a cold forceps for histology. Biopsies were taken with a cold forceps for Helicobacter pylori cultures. Mildly erythematous mucosa friable oozing w contact and with no stigmata of bleeding was found in the duodenal bulb. Impression: - Z-line variable. - Erythematous mucosa in the prepyloric region of the stomach. Biopsied. - Erythematous duodenopathy. Recommendation: - Await pathology results. - Discharge patient to home. - Resume previous diet. - Continue present medications. - Use sucralfate tablets 1 gram PO QID for 2 weeks. Procedure Code(s): --- Professional --- 88313, Esophagogastroduodenoscopy, flexible, transoral; with biopsy, single or multiple Diagnosis Code(s): --- Professional --- K22.89, Other specified disease of esophagus K31.89, Other diseases of stomach and duodenum D50.9, Iron deficiency anemia, unspecified R12, Heartburn CPT copyright 2021 [employer]. All rights reserved. The codes documented in this report are preliminary and upon program director scouting review may be revised to meet current compliance requirements. MD Lurdes Carrillo MD 07/01/2024 11:45:19 AM This report has been signed electronically. Number of Addenda: 0 Note Initiated On: 07/01/2024 11:05 AM
--- NOTE | 2024-07-01 11:46 | OP.CCLET_ITS ---
07/01/2024 Lex Madsen Re : Upper GI endoscopy procedure for Lyssa Vasquez Dear Dr. Madsen This procedure was performed on Monday, July 01, 2024. My impressions and recommendations are as follows: Impressions : - Z-line variable. - Erythematous mucosa in the prepyloric region of the stomach. Biopsied. - Erythematous duodenopathy. Recommendations : - Await pathology results. - Discharge patient to home. - Resume previous diet. - Continue present medications. - Use sucralfate tablets 1 gram PO QID for 2 weeks. My findings are described in the full procedure note, which is enclosed. If I can be of further assistance, please feel free to contact me at Doctor phone number(s): , Work: . Sincerely, MD Lurdes Carrillo MD 07/01/2024 11:45:19 AM This report has been signed electronically.
[2024-07-01] MEDS: 0.9 % NaCl (Sterile) Posiflush 10 mL IV (12:23)
--- NOTE | 2024-07-01 12:35 | PCM.POSTANE2 ---
Anesthesia Postop Eval I Sum Postop Eval Completion status Anesthesia document: Postop Eval 1 completed: Yes Anesthesia Postop Eval I Summary Anesthesia Postop Eval I Summary: Anesthesia Postop Eval I: Assessment Summary Airway patent Yes 07/01/24 11:45 Spontaneous unlabored Yes 07/01/24 11:45 respirations Mental status Awake,Calm 07/01/24 11:45 nausea No 07/01/24 11:45 Vomiting No 07/01/24 11:45 Anesthesia Postop Eval I: Fluid Summary Crystalloid volume administer 500 07/01/24 11:45 (ml) Colloids volume administered ( ml) Blood Product volume administered (ml) Total IV fluid infused 500 07/01/24 11:45 Anesthesia Postop Eval I: Summary Notes Anesthesia Complication No 07/01/24 11:45 Anesthesia Complication Comment: Post-operative progress note Anesthesia: Postop Eval II Evaluation Mental status: Awake Pain Level: 0 nausea: No Vomiting: No
== END 2024-07-01 12:36 | disposition home or self-care (01) ==
LOC: EN 08:48 → AC 08:50
PROVIDERS: PCP Family Medicine; Referring Provider Surgery; Visit Provider Surgery
PROC: 0DJD8ZZ Inspection of Lower Intestinal Tract, Via Natural or Artificial Opening Endoscopic (ICD-10-PCS; CPT 45378; principal; 2024-07-01 10:10)
DX: K62.5 Hemorrhage of anus and rectum (principal); C50.919 Malignant neoplasm of unspecified site of unspecified female breast; D50.0 Iron deficiency anemia secondary to blood loss (chronic); Z92.21 Personal history of antineoplastic chemotherapy; I10 Essential (primary) hypertension; K21.9 Gastro-esophageal reflux disease without esophagitis; Z79.899 Other long term (current) drug therapy; Z90.710 Acquired absence of both cervix and uterus; Z90.722 Acquired absence of ovaries, bilateral; Z80.0 Family history of malignant neoplasm of digestive organs; K29.50 Unspecified chronic gastritis without bleeding; K22.89 Other specified disease of esophagus; K64.2 Third degree hemorrhoids; K62.89 Other specified diseases of anus and rectum
CPT/HCPCS: 45380; 43239; 88305; 88342; J7120; A4216; J2405

== ENCOUNTER → 2024-07-06 | Outpatient (CLI) | payer MEDICARE, SELFPAY ==
--- NOTE | 2024-07-06 10:54 | ECHODONC_ITS ---
Reason For Study: CHEMOTHERAPY Procedure This was a 2D Doppler, Color Flow transthoracic echocardiogram. Myocardial strain analysis was performed in this exam to aid in the assessment of cardiac function. Exam performed in department. Left Ventricle Normal LV size. Left ventricular systolic function is normal. The left ventricular ejection fraction is 65 %. Stage 1 diastolic dysfunction. No regional wall motion abnormalities noted. Right Ventricle Normal RV size. Normal systolic function. Atria Normal left atrium. Normal right atrium. Mitral Valve Normal mitral valve. Tricuspid Valve Normal tricuspid valve. Pulmonic Valve Normal pulmonic valve. Great Vessels Normal aortic root. The pulmonary artery is normal size. Normal inferior vena cava. Pericardium/Pleural No pericardial effusion. MMode/2D Measurements & Calculations LVIDd: 4.0 cm IVSd: 1.1 cm LVOT diam: 1.9 cm LVIDs: 2.1 cm LVPWd: 1.1 cm LVOT area: 2.8 cm2 RVDd: 3.7 cm FS: 46.0 % asc Aorta Diam: 3.7 cm LAV(MOD-bp): 46.8 ml LVAd ap4: 21.1 cm2 LAV(MOD-bp) Indexed: 24.2 ml/m2 LVLd ap4: 7.1 cm LAV(MOD-sp2): 57.1 ml EDV(MOD-sp4): 51.0 ml LAV(MOD-sp4): 36.6 ml EDV(sp4-el): 52.8 ml LVAs ap4: 11.0 cm2 LVLs ap4: 6.0 cm ESV(MOD-sp4): 17.1 ml ESV(sp4-el): 17.0 ml EF(MOD-sp4): 66.5 % EF(sp4-el): 67.8 % SV(MOD-sp4): 33.9 ml SV(MOD-sp2): 33.1 ml LVAd ap2: 20.6 cm2 LVLd ap2: 7.4 cm EDV(MOD-sp2): 47.7 ml EDV(sp2-el): 48.7 ml LVAs ap2: 9.9 cm2 LVLs ap2: 5.9 cm ESV(MOD-sp2): 14.5 ml ESV(sp2-el): 14.1 ml EF(MOD-sp2): 69.5 % SV(sp4-el): 35.8 ml Ao sinus diam: 2.[address] Junction: 2.8 cm LA A4 area: 15.7 cm2 LA dimension(2D): 3.3 cm RA A4 area: 10.1 cm2 TAPSE: 1.9 cm Time Measurements MV dec time: 0.19 sec Doppler Measurements & Calculations MV E max bobo: 68.2 cm/sec Lat Peak E' Bobo: 10.7 cm/sec Med Peak E' Bobo: 6.4 cm/sec MV A max bobo: 76.0 cm/sec E/E' lat: 6.4 E/E' med: 10.6 MV E/A: 0.90 Ao V2 max: 158.2 cm/sec LV V1 max: 133.8 cm/sec MV dec slope: 365.9 cm/sec2 Ao max P.0 mmHg LV V1 max P.2 mmHg Ao V2 mean: 105.1 cm/sec LV V1 mean P.7 mmHg Ao mean P.1 mmHg LV V1 mean: 88.9 cm/sec Ao V2 VTI: 28.5 cm LV V1 VTI: 24.6 cm AV (velocity ratio): 0.86 CANDACE(I,D): 2.4 cm2 CANDACE(V,D): 2.3 cm2 SV(LVOT): 68.3 ml PA V2 max: 122.8 cm/sec PI end-d bobo: 99.8 cm/sec PA max PG (full): 1.5 mmHg TR max bobo: 185.2 cm/sec TR max P.7 mmHg ECHO/ONC Echo Complete Interpretation Summary Normal LV size. Left ventricular systolic function is normal. The left ventricular ejection fraction is 65 %. Stage 1 diastolic dysfunction. The global longitudinal strain is normal. The global longitudinal strain = -19. 1 % (normal). Ordering Physician: Alley Walden Referring Physician: Ryan Madsen M.D. Performed By: Mellisa Farris RDCS
== END | disposition home or self-care (01) ==
PROVIDERS: PCP Family Medicine; Referring Provider Nurse Practitioner Family; Visit Provider Nurse Practitioner Family
DX: Z51.81 Encounter for therapeutic drug level monitoring (principal); Z79.899 Other long term (current) drug therapy
CPT/HCPCS: 93306; 93356

== ENCOUNTER → 2024-07-17 | Outpatient (CLI) | payer MEDICARE, SELFPAY ==
--- NOTE | 2024-07-17 13:21 | CT_ITS ---
EXAM: CT ABDOMEN AND PELVIS WITH INTRAVENOUS CONTRAST CLINICAL INDICATION: POST NEOADJ CHEMO TECHNIQUE: Helically acquired images were obtained of the abdomen and pelvis with intravenous contrast. This CT exam was performed using one or more of the following dose reduction techniques: automated exposure control, adjustment of the mA and/or kV according to patient size, and/or use of iterative reconstruction technique. CONTRAST: Oral and amp; IV Readi-CAT and amp; 100mL Isovue-300 COMPARISON: MR abdomen 03/27/2024, CT Abdomen Pelvis dated 03/10/2024 FINDINGS: LOWER THORAX: Normal. Lung bases are clear. No cardiomegaly. No pericardial effusion. ABDOMEN: LIVER: Normal. Homogeneous. No focal mass. GALLBLADDER AND BILE DUCTS: Normal. No calcified gallstones. No gallbladder distention or wall edema. No intra- or extrahepatic biliary ductal dilation. PANCREAS: Normal. No focal cystic or solid mass. SPLEEN: Normal. Normal size without focal cystic or solid mass. ADRENALS: Normal. No nodules. KIDNEYS AND URETERS: See below. STOMACH AND BOWEL: Normal. No bowel distention. No focal inflammatory change. PELVIS: APPENDIX: Appendix is visualized and normal in appearance. BLADDER: Urinary bladder is decompressed. REPRODUCTIVE: Hysterectomy noted. ABDOMEN and PELVIS: INTRAPERITONEAL SPACE: Normal. No ascites or other fluid collection. No free air. RETROPERITONEAL SPACE: Previously noted cystic mass within the retroperitoneum located between the aorta and left ureter at the L4 level has decreased in size now measuring 2.4 x 1.9 cm from prior measurement of 3.1 x 2.8 cm. BONES/JOINTS: See above. SOFT TISSUES: Normal. No discrete abdominal or pelvic wall hernia. VASCULATURE: See above. LYMPH NODES: Normal. No enlarged lymph nodes. TUBES, LINES AND DEVICES: A left double-J ureteral stent catheter is in place with interval decompression of the left hydronephrosis and hydroureter. CT/Abdomen/Pelvis WITH Contrast IMPRESSION: 1. Decreasing size of the cystic lesion of the retroperitoneum. 2. Interval decompression of the left hydronephrosis and hydroureter with placement of a double-J ureteral stent catheter. Electronically Signed: Nabor Albert MD at 8:52 EDT ,
[2024-07-17] MEDS: 0.9 % NaCl (Sterile) Posiflush 10 mL IV (13:50)
[2024-07-17] MEDS: 0.9% Saline Lock 10 ML Syringe IV (14:00)
== END | disposition home or self-care (01) ==
LOC: CT 13:20
PROVIDERS: PCP Family Medicine; Referring Provider Internal Medicine Hematology & Oncology; Visit Provider Internal Medicine Hematology & Oncology
DX: C50.911 Malignant neoplasm of unspecified site of right female breast (principal); Z17.0 Estrogen receptor positive status [ER+]
CPT/HCPCS: 74177; Q9967; A4216

== ENCOUNTER → 2024-07-24 | Outpatient (CLI) | payer MEDICARE, SELFPAY ==
--- NOTE | 2024-07-24 11:23 | MRI_ITS ---
STUDY: BILATERAL BREAST MR WITHOUT AND WITH CONTRAST REASON FOR EXAM: Female, 68 years old. Follow-up postchemotherapy. TECHNIQUE: Multi-sequence multi-echo imaging of both breasts was performed with a dedicated breast coil. T1-weighted and T2-weighted images were performed before the administration of contrast. T1-weighted images were also performed after the administration of 17 cc of Clariscan contrast. COMPARISON: Bilateral mammograms January 30, 2023, January 30, 2024 and the right breast ultrasound dated January 30, 2024 and March 13, 2020 FINDINGS: RIGHT BREAST: Scattered fibroglandular densities with minimal background enhancement. Enhancing right index lesion of known carcinoma has decreased in size and now measures 1.3 cm x 9 mm with a small 5 mm focus of enhancement anterior to the index lesion approximately 18 mm behind the nipple, relatively unchanged. LEFT BREAST: Scattered fibroglandular densities with minimal background. No abnormal enhancing masses or areas of non-mass enhancement in the left breast. Solitary slightly enlarged right axillary lymph node measuring 1.4 cm in diameter with no definable fatty hilum. No abnormality in the visualized regions of the chest or liver. MRI/Breast Bilateral W/O and W IMPRESSION: Decrease in size of index lesion in the right breast which now measures 1.3 cm x 9 mm with a small 5 mm focus of enhancement anterior to the index lesion approximately 18 mm behind the nipple, relatively unchanged. No abnormal lymph nodes. Left breast shows no abnormality. CATEGORY: BIRADS Category 6: Known Biopsy-Proven Malignancy - Appropriate Action Should Be Taken. A letter regarding these results will be sent to the patient by the facility within 30 days. Electronically Signed: Rashid Hayward MD at 12:42 EDT ,
== END | disposition home or self-care (01) ==
LOC: MRI 11:00
PROVIDERS: PCP Family Medicine; Referring Provider Internal Medicine Hematology & Oncology; Visit Provider Internal Medicine Hematology & Oncology
DX: C50.911 Malignant neoplasm of unspecified site of right female breast (principal)
CPT/HCPCS: 77049; A9575; A4216; C8908

== ENCOUNTER → 2024-08-10 | Outpatient (CLI) | payer MEDICARE, SELFPAY | END | disposition home or self-care (01) | LOC: US 11:19 | PROVIDERS: PCP Family Medicine; Referring Provider Surgery; Visit Provider Surgery | DX: Z00.00 Encounter for general adult medical examination without abnormal findings (principal) ==

== ENCOUNTER 2024-08-11 12:37 | Observation (INO) | payer MEDICARE, SELFPAY ==
--- NOTE | 2024-08-10 11:25 | US_ITS ---
STUDY: SUPERFICIAL ULTRASOUND - RIGHT AXILLA. REASON FOR EXAM: Female, 68 years old. Locate right axillary lymph node with clip -- [place] to be present to see clip TECHNIQUE: A superficial ultrasound was performed with real-time and static auguste-scale imaging. COMPARISON: None. FINDINGS: The axilla was examined with ultrasound. A tissue clip marker is seen within the 1.3 cm x 0.5 cm x 0.5 cm lymph node. US/Ext Non Vasc Limited/Soft Tiss IMPRESSION: Tissue clip marker is seen within the 1.3 cm x 0.5 cm x 0.5 cm lymph node. Electronically Signed: Dale Danielson MD at 13:44 EDT ,
[2024-08-11] VITALS (14 sets, daily range): BP systolic 114–152; BP diastolic 50–74; PULSE 86–99; RESP 16–18; TEMP 36.3–37.1; O2SAT 92–98; BMI 30.6
--- NOTE | 2024-08-11 | IMM_PTH ---
PATIENT: KATHY URIAS LOC: MS3 U#:[id number] AGE/SX: 68/F ROOM: TX321 RE08/11/[address]: Dr. Lurdes Cormier MD : 1955 BED: 1 DIS: 08/12/2024 SPEC #: [id number] RECD: 08/14/24 12:32 STATUS: EREN REQ #: [id number] TERESA: 08/11/24 00:[address]: Lurdes Cormier DEPT: IMMUNOHISTOCHEMISTRY RECD BY: Jed Myers ENTERED: 08/14/24 12:33 SP TYPE: IMMUNO OTHR DR: Dr. Lex Madsen, DO Tissues: A - Axillary lymph node, NOS C - Axillary lymph node, NOS Procedures: CK7 (add) Pankeratin (initial) Pankeratin (add) CK7 (initial) PHYSICIAN & INSTITUTION [place] [address] SPECIMEN INFORMATION: Tissue Source: A- Right axillary sentinel lymph node, C- Right axillary lymph node Clinical Info: Malignant neoplasm of right breast in female, estrogen receptor positive, unspecified site of breast, enlarged lymph node Specimen Number: [id number] A C CPT code: 85077i7,45384d9 METHODOLOGY: Deparaffinized sections of prefer/formalin-fixed tissue or PAP/DQ stained slides are incubated with monoclonal/polyclonal antibodies/oligonucleotide probes. Localization is made via biotin free immunoperoxidase method. Appropriate controls are performed and reacted as expected. Results on target cell population are indicated in the following table: RESULTS: ANTIBODY / CLONE RESULT Block A 1 AE1-3 (AE1/AE3/PCK26) negative CK7 (OV-TL12/30) negative Block C1 AE1-3 (AE1/AE3/PCK26) negative CK7 (OV-TL12/30) negative Block C2 AE1-3 (AE1/AE3/PCK26) negative CK7 (OV-TL12/30) negative Block C3 AE1-3 (AE1/AE3/PCK26) negative CK7 (OV-TL12/30) negative These tests were developed and their performance characteristics determined by [facility]. They may not have been cleared or approved by the U.S. Food and Drug Administration. The FDA has determined that such clearance or approval is not necessary. The above immunohistochemical/dualISH markers are ordered and reviewed by the Pathologist. INTERPRETATION: A. Right axillary sentinel lymph node, biopsy: Two out of two lymph nodes, negative for metastatic carcinoma (block A!). C. Right axillary lymph node, biopsy: Five out of five lymph nodes, negative for metastatic carcinoma. 08/17/2024
--- NOTE | 2024-08-11 07:06 | NM_ITS ---
PROCEDURE: NUCLEAR MEDICINE Injection [place] Node - RIGHT breast(s). REASON FOR EXAM: Female, 68 years old. Right breast cancer. TECHNIQUE: [place] node localization using radionuclide methods of the RIGHT breast(s) was performed following subcutaneous administration of 1.2 mCi of of sulfur colloid Tc-99m. COMPARISON STUDIES : NM - None. CR - Not available for review at this time. CT - Not available for review at this time. MR - Not available for review at this time. US - Not available for review at this time. FINDINGS: 1.2 mCi of technetium labeled sulfur colloid was injected subcutaneously in the periareolar region for sentinel node imaging. NM/Lymph Node Injection Only IMPRESSION: 1.2 mCi of technetium labeled sulfur colloid was injected subcutaneously in the periareolar region for sentinel node imaging. Electronically Signed: Dale Danielson MD at 11:19 EDT ,
[2024-08-11] MEDS: Lactated Ringers 1,000 ML 15 ML IV ×2 (07:17→12:25)
--- NOTE | 2024-08-11 07:25 | PRE.ANES_ITS ---
ASA Classification* ASA Classification ASA Classification: 3 Assessment & Plan Anesthesia* Anesthesia Assessment Anesthesia Assessment: Discussed sedation and/or anesthesia options, risks, benefits, and alternatives with patient/parents/legal guardian/POA. Questions invited. The patient/parents/legal guardian/POA seems to understand and agrees to proceed with anesthesia plan. Reviewed the physical assessment, medical history, allergy history and patient home medications list prior to surgery/procedure/anesthetic and documented any changes. Performed airway and anesthesia risk assessments. Anesthesia Type Anesthesia Type: General (see written pre anestesia record for full assessment) Anesthesia Focused Assessment* Temperature: 97.9 F Pulse Rate: 95 Blood Pressure: 152/74 Respiratory Rate: 16 Pulse Ox: 94 Airway Assessment Mouth opens: >3 cm Mallampati Score: II Focused Labs Anesthesia Preop lab: CBC WBC 3.8 K/mm3 (4.4-11.0) L 07/23/24 10:55 RBC 2.57 M/mm3 (4.2-5.4) L 07/23/24 10:55 Hgb 8.5 g/dL (12.0-15.0) L 07/23/24 10:55 Hct 25.8 % (37-47) L 07/23/24 10:55 Plt Count 140 K/mm3 (150-450) L 07/23/24 10:55 CHEMISTRY Potassium 3.7 mmol/L (3.5-5.1) 07/23/24 10:55 Sodium 136 mmol/L (136-145) 07/23/24 10:55 Magnesium 0.9 mg/dL (1.6-2.6) L* 07/23/24 10:55 Phosphorus 3.0 mg/dL (2.5-4.9) 04/30/24 08:10 BUN 14 mg/dL (7-18) 07/23/24 10:55 Creatinine 0.50 mg/dL (0.55-1.02) L 07/23/24 10:55 Glucose 96 mg/dL (74-106) 07/23/24 10:55 POC Glucose 109 mg/dL (74-106) H 04/02/23 08:44 COAG PT 13.0 SECONDS (11.7-14.9) 03/25/23 08:44 Pre-Assessment Diagnosis/Proposed Procedure Planned Operative Procedure(s): (R) Breast, Ultrasound guided Lumpectomy,[place] Node,right Ax Dis (clip), blue dye and radiotracer PT REPORTS CHANGING PROCEDURE TO R MASTECTOMY Anesthesia History Anesthesia History - emergency department: Anesthesia History - emergency department Hx Hospitalization No 08/05/24 08:25 Any Problems With Anesthesia No 08/05/24 08:25 Cholinesterase deficiency No 08/05/24 08:25 You/Your Family Experience No 08/05/24 08:25 fever (hyperthermia) with Relationship Recent Exposure to Contagious No 08/11/24 07:14 Disease Does patient have nerve No 08/05/24 08:25 stimulator Patient instructed to have device shut off --Does patient have Pacemaker No 08/11/24 07:14 or ICD? When Was Last Pacemaker Check QUESTION #4 FULL TEXT: You/Your Family Experience fever (hyperthermia) with Anesthesia Last Oral Intake Last Oral intake: Last Oral Intake NPO since 17:00 08/11/24 07:14 Meds taken in AM with sips of Yes 08/11/24 07:14 water? Meds patient instructed to take am of surgery PONV PONV - emergency department: PONV - emergency department Female Yes 08/05/24 08:25 HX of Motion Sickness No 08/05/24 08:25 HX of N/V After Surgery No 08/05/24 08:25 Non-Smoker Yes 08/05/24 08:25 Duration of Surgery greater Yes 08/05/24 08:25 than 60 minutes Number of Risk Factors 3 08/05/24 08:25 PONV Score Moderate Risk 08/05/24 08:25 Height & Weight Height & Weight: Anesthesia: Height & Weight Height 5 ft 6 in 08/11/24 07:14 Weight: 86 kg 08/11/24 07:14 Body Mass Index (BMI) 30.6 08/11/24 07:14 Respiratory Assessment Respiratory Assessment - emergency department: Respiratory Tract Infection Hx - emergency department Hx Respiratory Tract Infection No 08/05/24 08:25 STOP Sleep Apnea STOP Sleep Apnea - emergency department: STOP Sleep Apnea - emergency department Hx Hypertension Yes: CONTROLLED WITH MED 08/05/24 08:25 Hx Sleep Apnea No 08/05/24 08:25 CPAP BIPAP Do you snore loudly (louder No 08/05/24 08:25 than talking or can be heard Do you often feel tired/ No 08/05/24 08:25 fatigued/ sleepy during daytime? Has anyone observed you stop No 08/05/24 08:25 breathing during sleep? STOP Results Negative 08/05/24 08:25 QUESTION #5 FULL TEXT : Do you snore loudly (louder than talking or can be heard through closed doors)? 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 Specify any problems Hx of Preganancy in last 3 No 08/05/24 08:25 Months Nurse Filling Out Transfusion VCHRISTIN 08/05/24 08:25 & Questions: Date: 08/05/24 08/05/24 08:25 Time: 08:08/05/24 08:25 Patient unable to answer at this time (ie. confused, unrespo /Reproduction History /Reproductive History - emergency department: /Reproductive Hx- emergency department Hx Now Gestational Age (in weeks): EDC: Hx Hx Para Hx Section SAB No 08/05/24 08:25 Active Medications Active Medications: Current Medications Generic Name Dose Route Start Last Admin Trade Name Freq PRN Reason Stop Dose Admin Cefazolin Sodium 2 gm/ N/A 20 mls @ 400 mls/hr 08/11/24 09:30 IV 08/11/24 09:32 PREOP ONE Lactated Ringer's 1,000 mls @ 15 mls/hr 08/11/24 07:00 08/11/24 07:17 IV 08/16/24 20:19 15 mls/hr .Q48H MIGUEL A Administration Protocol PFSH Medical History Blood in urine Rectal bleeding Diarrhea due to drug Prerenal azotemia Dysuria Anemia due to chronic blood loss Gastric reflux Acid reflux Edema of both lower legs Mass in the abdomen Hypomagnesemia Diarrhea Encounter for chemotherapy management Abnormal CT of the abdomen Port-A-Cath in place Anxiety Bladder disease History of diverticulitis History of echocardiogram Cancer of right female breast Encounter for education Wears hearing aid Wears glasses Wears contact lenses Post-menopausal Cancer Back pain Migraine headache Non-smoker History of edema History of stress test Cardiology follow-up encounter Hx of vaginal delivery Mitral valve prolapse Chronic headaches Back problem Anemia Arthritis Hypertension Home Medications ?Medication ?Instructions ?Recorded ?Last Taken ?Type vibegron 75 mg tablet (Gemtesa) 75 mg PO DAILY 03/13/23 08/10/24 History ibuprofen 200 mg capsule 800 mg PO Q6H PRN pain 03/19/24 Unknown History lisinopril 20 mg tablet 20 mg PO DAILY #90 tabs 04/03/24 08/11/24 06:00 Rx loperamide 2 mg capsule (Imodium 2 mg PO Q6H PRN loose stool 04/03/24 08/11/24 History A-D) lansoprazole 30 mg capsule,delayed 30 mg PO DAILY #30 caps 04/30/24 08/11/24 Rx release (Prevacid) magnesium oxide 400 mg PO TID #90 caps 06/09/24 08/10/24 Rx ondansetron 8 mg disintegrating 8 mg PO Q8H PRN nausea and 06/11/24 08/10/24 Rx tablet vomiting #30 tabs potassium chloride 20 mEq 20 meq PO BID #60 tabs 06/11/24 08/10/24 Rx tablet,extended release(part/cryst) Allergy/AdvReac Type Severity Reaction Status Date / Time No Known Allergies Allergy Verified 08/11/24 07:12 Family History Mother Diabetes Hypertension Osteoarthritis Colon cancer Grandfather Heart disease Sister Lupus Fibromyalgia Sister , December 2022 from post op PE Endometrial cancer Father Cancer prostate. Surgical History History of renal stent Hx of cystoscopy Hx of surgical procedure Status post total hysterectomy and bilateral salpingo-oophorectomy S/P cystoscopy Hx of right breast biopsy Hx of colonoscopy History of orthopedic surgery History of excision of pilonidal cyst Social History Smoking Status: Never smoker alcohol intake: never substance use type: does not use caffeine: Yes what type of physical activity do you participate in: walking frequency: 3-4 times per week seatbelt use: always do you feel safe at home: Yes additional social history: -Dony Review of Systems (Anesthesia) ROS Narrative System reviewed and no additional complaints, except as documented.
--- NOTE | 2024-08-11 08:09 | HP.PCM_ITS ---
History and Physical Date of Admission: 08/11/24 Date of Service: 07/29/24 MR#: [id number] Acct: [id number] Name: KATHY URIAS Rep #: [id number] : 1955 Provider: Dr. Lurdes Cormier MD Age/Sex: 68/F Location: [facility] Status: Signed Intake Vital Signs 07/02/2409:05 07/16/2408:50 07/29/2412:59 Height 5 ft 6 in 5 ft 6 in 5 ft 6 in Weight: 190 lb BMI 30.7 BP 141/82 H Blood Pressure Location Lt brachial Position Sitting Respiration 17 Pulse 106 H Pulse Source Monitor Temp 97 F L Temp Source Temporal Pulse Oximetry (%) 99 Oxygen Delivery Method room air Intake Visit Reasons: DISCUSS BREAST SURGERY Chief Complaint: discuss breast surgery Allergies No Known Allergies Allergy (Verified 07/29/24 13:00) Medications ?Medication ?Instructions ?Recorded ?Confirmed ?Type vibegron 75 mg tablet (Gemtesa) 75 mg PO DAILY 03/13/23 07/29/24 History ibuprofen 200 mg capsule 800 mg PO Q6H PRN pain 03/19/24 07/29/24 History lisinopril 20 mg tablet 20 mg PO DAILY #90 tabs 04/03/24 07/29/24 Rx loperamide 2 mg capsule (Imodium 2 mg PO Q6H PRN loose stool 04/03/24 07/29/24 History A-D) lansoprazole 30 mg capsule,delayed 30 mg PO DAILY #30 caps 04/30/24 07/29/24 Rx release (Prevacid) magnesium oxide 400 mg PO TID #90 caps 06/09/24 07/29/24 Rx ondansetron 8 mg disintegrating 8 mg PO Q8H PRN nausea and 06/11/24 07/29/24 Rx tablet vomiting #30 tabs potassium chloride 20 mEq 20 meq PO BID #60 tabs 06/11/24 07/29/24 Rx tablet,extended release(part/cryst) sucralfate 1 gram tablet 1 g PO 4X/DAY #56 tabs 07/01/24 07/29/24 Rx nitrofurantoin 100 mg PO BID 07/02/24 07/29/24 History monohydrate/macrocrystals 100 mg capsule (Macrobid) Have you fallen in the past year?: No PFSH Medical History Blood in urine Rectal bleeding Diarrhea due to drug Prerenal azotemia Dysuria Anemia due to chronic blood loss Gastric reflux Acid reflux Edema of both lower legs Mass in the abdomen Hypomagnesemia Diarrhea Encounter for chemotherapy management Abnormal CT of the abdomen Port-A-Cath in place Anxiety Bladder disease History of diverticulitis History of echocardiogram Cancer of right female breast Encounter for education Wears hearing aid Wears glasses Wears contact lenses Post-menopausal Cancer Back pain Migraine headache Non-smoker History of edema History of stress test Cardiology follow-up encounter Hx of vaginal delivery Mitral valve prolapse Chronic headaches Back problem Anemia Arthritis Hypertension Surgical History History of renal stent Hx of cystoscopy Hx of surgical procedure Status post total hysterectomy and bilateral salpingo-oophorectomy S/P cystoscopy Hx of right breast biopsy Hx of colonoscopy History of orthopedic surgery History of excision of pilonidal cyst Family History Mother Diabetes Hypertension Osteoarthritis Colon cancerGrandfather Heart diseaseSister Lupus FibromyalgiaSister , December 2022 from post op PE Endometrial cancerFather Cancer prostate. Social History Smoking Status: Never smoker alcohol intake: never substance use type: does not use caffeine: Yes what type of physical activity do you participate in: walking frequency: 3-4 times per week seatbelt use: always do you feel safe at home: Yes additional social history: -Dony HPI HPI HPI: 68-year-old female presents for discussion of surgical treatment of right breast cancer status post neoadjuvant chemotherapy. Patient's repeat MRI still showed some enhancement of the index lesion as well as another enhancement subareolar but decreased in size. Patient also previously have a clipped lymph node prior to neoadjuvant that was positive. ROS General General: Yes weight change, fatigue, breast cancer and weakness; No appetite or colon cancer HEENT HEENT: No difficulty swallowing, eye injury, eye surgery, swollen glands or hoarseness Endo Endocrine: No thyroid disease, diabetes mellitus, thyroid cancer, Hair loss, heat intolerance or cold intolerance Skin Skin: No rash or changing moles Breast Breast: No left breast lump, right breast lump, nipple discharge, breast pain, abnormal mammogram, abnormal US or breast enlargement Musc Musculoskeletal: Yes arthritis; No back problems, rheumatoid arthritis, gout or joint pain Cardio Cardiovascular: Yes high blood pressure; No murmur, pacemaker, heart disease, atrial fibrillation, heart attack, heart stent, palpitations, shortness of breat with exertion or chest pain Psych Psychiatric: Yes anxiety; No depression or hearing voices Resp Respiratory: No shortness of breath, No sleep apnea, No cough, No COPD, No asthma, No emphysema and No wheezing Gastro Gastrointestinal: No abdominal pain, Yes nausea or vomiting, Yes diarrhea, No constipation, Yes blood in stool, No acid reflux, Yes hemorrhoids, No ulcers, No gallbladder problem and No black,tarry stools Peter Hematologic: No blood thinners, No blood disorders, No bleeding, Yes anemia and No blood clots Neuro Neurologic: No numbness, No tingling and Yes weakness Exam Const General: cooperative, healthy appearing and no acute distress HENMT Head: normal to inspection Chest Other: Breast inspection: Symmetric bilaterally Right breast: Fibroglandular tissue, 1 cm mass about 10:00 2 cm from the nipple, no nipple discharge, no change in overlying skin Left breast: Fibroglandular tissue, no masses on exam, no nipple discharge or pain, no change in overlying skin No axillary or supraclavicular adenopathy bilaterally, clipped node not obvious with bedside ultrasound Resp Effort & Inspection: normal respiratory effort Cardio Rate: regular rate GI Inspection: non-distended Palpation: soft Skin General: no rashes or lesions noted Neuro General: patient oriented x3 Extrem General: no clubbing, cyanosis or edema Psych Affect: normal affect Assessment and Plan Assessment and Plan (1) Cancer of right female breast: Status: Acute Qualifiers: Breast location: unspecified site of breast Estrogen receptor status: positive Qualified Code(s): C50.911 - Malignant neoplasm of unspecified site of right female breast; Z17.0 - Estrogen receptor positive status [ER+] (2) Enlarged lymph node: Status: Acute Comment: Positive lymph node previously clipped prior to neoadjuvant Plan I have given the patient options for initial surgical treatment. Options are the following: lumpectomy followed by radiation therapy vs. mastectomy vs. mastectomy followed by immediate reconstruction. I have described the procedures to the patient. I have described the advantages and disadvantages of the options, but I have told the patient that among the options, the survival rate for breast cancer is the same. I have told the patient that with all the surgeries that a sentinel lymph node biopsy is required. I have described the procedure of sentinel lymph node biopsy to the patient. I have told the patient that if the biopsy is positive for metastatic disease, then a full axillary lymph node dissection is required. I have told the patient that adjuvant chemotherapy will be required should the lymph nodes reveal metastatic disease. Also, a full lymph node dissection will increase the risk for lymphedema, especially if there are 4 or more lymph nodes positive for metastatic disease and radiation to the axilla is also required. I have told the patient the risks of surgery, including but not limited to: infection, bleeding, scar tissue, seroma and persistent seroma, lymph leak, injury to any blood vessels, injury to any nerves (particularly the long thoracic, the thoracodorsal, and the second intercostal brachial and the resultant sequelae), lymphedema, cosmetic deformity, dysesthesias, wound infections, further surgery (especially if margins are not clear), complications of anesthesia, etc. the patient understands. Patient would like to move forward with ultrasound-guided needle localization right breast lumpectomy (including the nipple areolar complex), possible ultrasound-guided needle localization of right axillary clipped lymph node, sentinel lymph node biopsy, nuclear tracer, blue dye, possible axillary lymph node dissection. Addendum: Patient did change her mind and wants to proceed with the right mastectomy instead of a lumpectomy. We were able to locate the clip noted in radiology as well. I have answered all the patient?s questions at this point to her satisfaction and she has no further questions. Lurdes Cormier M.D. Pager: [phone] [facility] [address] [place] [address], [facility], [address] [place] [address] Office: [phone] Coding Level of Care Code Off vis,est,level 4 Diagnoses Malignant neoplasm of right breast in female, estrogen receptor positive, unspecified site of breast C50.911; Z17.0 Breast location: unspecified site of breast Estrogen receptor status: positive Enlarged lymph node R59.9 Clinical Quality Measures Falls Risk Screening/Assistive Devices Have you fallen in the past year?: No 07/30/24 0844 <Electronically signed by Lurdes Cormier MD> Date Lurdes Cormier MD
[2024-08-11] MEDS: Cefazolin 2 GM in Syringe IV (09:24)
[2024-08-11] MEDS: Methylene Blue 1% 100 MG/10 ML VIAL (09:46)
[2024-08-11] MEDS: 0.9% Normal Saline (Pres. free 10 ML Vial (09:46)
--- NOTE | 2024-08-11 10:00 | AXNB_PTH ---
PATIENT: KATHY URIAS LOC: MS3 U#:[id number] AGE/SX: 68/F ROOM: [facility] [place] RE08/11/[address]: Dr. Lurdes Cormier MD : 1955 BED: 1 DIS: 08/12/2024 SPEC #: [id number] RECD: 08/11/24 11:08 STATUS: EREN EMMANUEL #: [id number] TERESA: 08/11/24 10:[address]: Lurdes Cormier DEPT: SURGICAL PATHOLOGY RECD BY: Jed Myers ENTERED: 08/11/24 11:09 SP TYPE: AX NODE BX OTHR DR: Dr. Lex Madsen, DO Tissues: A - Axillary lymph node, NOS B - Right breast, NOS C - Axillary lymph node, NOS Procedures: Frozen Section (charge) Surgery Specimen Level IV Surgery Specimen Level HEADER OPERATION: Breast mastectomy with sentinel lymph node biopsy PRE-OP DIAGNOSIS: Malignant neoplasm of right breast in female, estrogen receptor positive, unspecified site of breast, enlarged lymph node TISSUE SUBMITTED: A- Right axillary sentinel lymph node, B- Right breast *short stitch- superior, long stitch- lateral with wire x2, C- Right axillary lymph node FROZEN SECTION DIAGNOSIS A. Right axillary sentinel lymph node, biopsy: One out of three lymph nodes, positive for macrometastatic carcinoma. AM. 08/11/2024 MICROSCOPIC DIAGNOSIS A. Right axillary sentinel lymph node, biopsy: One out of three lymph nodes, positive for macrometastatic carcinoma. See comment. B. Right breast, mastectomy: Invasive ductal carcinoma. See cancer summary in the comment section. C. Right axillary lymph node, regional dissection: Fifteen out of fifteen lymph nodes, negative for metastatic carcinoma. See comment. SJ. 08/14/2024 COMMENT A. The largest metastatic focus of measures 0.8 x 0.3cm. Extranodal extension is not seen. The lymph nodes are negative for metastatic carcinoma on multiple H & E levels and immunohistochemical stains for cytokeratins ([id number], BLOCK A1). C. Immunohistochemistry ([id number]) supports the above diagnosis. (A1 to A3) B. BREAST CANCER SUMMARY Procedure - Mastectomy Specimen laterality - Right Invasive tumor: Tumor site - 10o'clock, 2cm from nipple, as per clinical information Tumor size - 1.5 x 1.2 x 1.0 cm Histologic type - Invasive ductal carcinoma, not otherwise specified Histologic grade (Whiting grade): Glandular/tubular differentiation score - 2 Nuclear pleomorphism score - 2 Mitotic count score - 1 Overall grade - grade 1 (score of 5) Tumor focality - Single focus of invasive carcinoma Ductal carcinoma in situ - Present Negative for extensive intraductal component (EIC). Size (extent) of DCIS - Ductal carcinoma in situ consists of <5% of the total tumor involved Number of blocks with DCIS - 1 Number of blocks examined - 12 Architectural pattern - Cribriform Nuclear grade - grade 2 (intermediate) Necrosis - Not identified Lobular carcinoma in situ - Not identified Tumor extension: Skin - Present and not involved Nipple - Ductal carcinoma does not involve nipple epidermis Skeletal muscle - Skeletal muscle is not present Margins: Margins are free of invasive ductal carcinoma and ductal carcinoma in situ are 4.5cm away from the closest posterior margin Regional lymph nodes: Number of lymph nodes examined - 18 Number of sentinel lymph nodes examined - 3 Number of lymph nodes with macrometastases - 1 Number of lymph nodes with micrometastases or isolated tumor cells - 0 Size of largest metastatic deposits - 0.8 x 0.3cm (measured microscopically) Extranodal extension - Not identified Distal metastases- Not applicable Treatment effect - In the breast- Minimal response to presurgical therapy in the invasive carcinoma, In the lymph node- No definite response to presurgical therapy in the metastatic carcinoma. Lymph vascular invasion - Not identified Dermal lymph vascular invasion - Not identified Ancillary Studies: Previously performed on same tumor ([id number] / [id number]) ER: positive (>95%, strong intensity) IA: positive (64%, moderate to strong intensity) Wkt2ixz: positive (3+) Microcalcifications - Present in the invasive carcinoma and non-neoplastic tissue PATHOLOGIC STAGE: pT1c (y) pN1a pMx The above summary is in compliance with [employer] [place] [employer] (CAP) Cancer Protocols Checklist and [place] Joint Committee on Cancer (AJCC), Staging Manual, 8th Ed. Please make reference to previous specimen [id number] right breast mass 10o'clock, 2cm from nipple with diagnosis of invasive ductal carcinoma and [id number], right axillary lymph node, core biopsy with diagnosis of metastatic carcinoma consistent with breast primary. This case was discussed with Dr. Cormier on 08/18/2024. Case has been reviewed in consultation with Dr. Abebe who concurs with the above diagnosis. IDC:AM MICROSCOPIC DESCRIPTION Slides are reviewed. GROSS DESCRIPTION A. Received fresh for frozen section consultation labeled with the patient's name is a specimen designated Right axillary sentinel lymph node. The specimen consists of two irregular fragments of yung, yellow fibrofatty tissue. The smaller fragment measures 3.0 x 2.0 x 1.0cm and the larger fragment measures 4.5 x 3.0 x 1.0cm. Dissection reveals three nodules resembling lymph nodes and ranging in size from 1.0 to 2.0cm in greatest dimension. The largest lymph node contains a metallic clip. The lymph node is submitted for frozen section consultation as follows: Block 1- Two lymph nodes, Block 2&3- Largest lymph node, bisected. AM.mr 08/11/2024 B. Received in fixative is one container labeled with the patient's name and designated Right breast. The specimen consists of a mastectomy specimen consistent with breast tissue with overlying yung-brown skin ellipse. The specimen is oriented by as *short stitch- superior, long stitch- lateral. Breast tissue measures 24.0 x 19.0 x 5.0cm. Skin ellipse measures 23 x 10 cm. Nipple measures 1.0cm in greatest dimension. No skin lesion is identified. Blue dye discoloration is noted on the superior margin. The specimen is inked as follows: posterior - black, superior - blue, inferior - green, medial - red and lateral - orange. Also present in the container are two wires, not in the breast tissue. More dictation will follow after fixation. SJ.mr 08/11/2024 Section of the breast tissue reveal a yung indurated mass in the central portion of the breast measuring 1.5 x 1.2 x 1.0cm. Sections of this mass reveal a metallic clip. This mas is 4.5cm away from the closest posterior margin. Section of the rest of the specimen reveals yung-yellow adipose cut surfaces mixed with yung-white fibrous areas. Company Marker sections are submitted in twelve cassettes as follows: 1- nipple, entirely submitted, 2- perpendicular medial, lateral, superior margin, 3- perpendicular inferior and posterior margins and skin, 4-7- entire tumor, 8- claims service representative sections adjacent to the tumor, 9-12- claims service representative sections away from the tumor. Sections are submitted after additional fixation. 08/12/2024 C. Received in fixative is one container labeled with the patient's name and designated Right axillary lymph node. The specimen consists of a piece of adipose tissue measuring 6.0 x 6.5 x 2.0cm. Multiple lymph nodes are identified. Largest lymph node measures 2.5cm in greatest dimension. Company Marker sections are submitted in three cassettes as follows: 1- one bisected lymph node, 2- one lymph node, 3- multiple lymph nodes. . 08/11/2024 Rest of the specimen is submitted in seven additional cassettes: 4-11. . 08/17/2024 TC:0 CPT:[id number],[id number], [id number]
--- NOTE | 2024-08-11 10:00 | AXNB_PTH ---
PATIENT: KATHY URIAS LOC: MS3 U#:[id number] AGE/SX: 68/F ROOM: [facility] [place] RE08/11/[address]: Dr. Lurdes Cormier MD : 1955 BED: 1 DIS: 08/12/2024 SPEC #: [id number] RECD: 08/11/24 11:08 STATUS: EREN EMMANUEL #: [id number] TERESA: 08/11/24 10:[address]: Lurdes Cormier DEPT: SURGICAL PATHOLOGY RECD BY: Jed Myers ENTERED: 08/11/24 11:09 SP TYPE: AX NODE BX OTHR DR: Dr. Lex Madsen, DO Tissues: A - Axillary lymph node, NOS B - Right breast, NOS C - Axillary lymph node, NOS Procedures: Frozen Section (charge) Surgery Specimen Level IV Surgery Specimen Level HEADER OPERATION: Breast mastectomy with sentinel lymph node biopsy PRE-OP DIAGNOSIS: Malignant neoplasm of right breast in female, estrogen receptor positive, unspecified site of breast, enlarged lymph node TISSUE SUBMITTED: A- Right axillary sentinel lymph node, B- Right breast *short stitch- superior, long stitch- lateral with wire x2, C- Right axillary lymph node FROZEN SECTION DIAGNOSIS A. Right axillary sentinel lymph node, biopsy: One out of three lymph nodes, positive for macrometastatic carcinoma. AM. 08/11/2024 MICROSCOPIC DIAGNOSIS A. Right axillary sentinel lymph node, biopsy: One out of three lymph nodes, positive for macrometastatic carcinoma. See comment. B. Right breast, mastectomy: Invasive ductal carcinoma. See cancer summary in the comment section. C. Right axillary lymph node, regional dissection: Five out of five lymph nodes, negative for metastatic carcinoma. See comment. SJ. 08/14/2024 COMMENT A. The largest metastatic focus of measures 0.8 x 0.3cm. Extranodal extension is not seen. The lymph nodes are negative for metastatic carcinoma on multiple H & E levels and immunohistochemical stains for cytokeratins ([id number], BLOCK A1). C. Immunohistochemistry ([id number]) supports the above diagnosis. B. BREAST CANCER SUMMARY Procedure - Mastectomy Specimen laterality - Right Invasive tumor: Tumor site - 10o'clock, 2cm from nipple, as per clinical information Tumor size - 1.5 x 1.2 x 1.0 cm Histologic type - Invasive ductal carcinoma, not otherwise specified Histologic grade (Alix grade): Glandular/tubular differentiation score - 2 Nuclear pleomorphism score - 2 Mitotic count score - 1 Overall grade - grade 1 (score of 5) Tumor focality - Single focus of invasive carcinoma Ductal carcinoma in situ - Present Negative for extensive intraductal component (EIC). Size (extent) of DCIS - Ductal carcinoma in situ consists of <5% of the total tumor involved Number of blocks with DCIS - 1 Number of blocks examined - 12 Architectural pattern - Cribriform Nuclear grade - grade 2 (intermediate) Necrosis - Not identified Lobular carcinoma in situ - Not identified Tumor extension: Skin - Present and not involved Nipple - Ductal carcinoma does not involve nipple epidermis Skeletal muscle - Skeletal muscle is not present Margins: Margins are free of invasive ductal carcinoma and ductal carcinoma in situ are 4.5cm away from the closest posterior margin Regional lymph nodes: Number of lymph nodes examined - 8 Number of sentinel lymph nodes examined - 3 Number of lymph nodes with macrometastases - 1 Number of lymph nodes with micrometastases or isolated tumor cells - 0 Size of largest metastatic deposits - 0.8 x 0.3cm (measured microscopically) Extranodal extension - Not identified Distal metastases- Not applicable Treatment effect - In the breast- Minimal response to presurgical therapy in the invasive carcinoma, In the lymph node- No definite response to presurgical therapy in the metastatic carcinoma. Lymph vascular invasion - Not identified Dermal lymph vascular invasion - Not identified Ancillary Studies: Previously performed on same tumor ([id number] / [id number]) ER: positive (>95%, strong intensity) OK: positive (64%, moderate to strong intensity) Rrs0ltu: positive (3+) Microcalcifications - Present in the invasive carcinoma and non-neoplastic tissue PATHOLOGIC STAGE: pT1c (y) pN1a pMx The above summary is in compliance with [employer] (CAP) Cancer Protocols Checklist and [place] Joint Committee on Cancer (AJCC), Staging Manual, 8th Ed. Please make reference to previous specimen [id number] right breast mass 10o'clock, 2cm from nipple with diagnosis of invasive ductal carcinoma and [id number], right axillary lymph node, core biopsy with diagnosis of metastatic carcinoma consistent with breast primary. Case has been reviewed in consultation with Dr. Abebe who concurs with the above diagnosis. IDC:AM MICROSCOPIC DESCRIPTION Slides are reviewed. GROSS DESCRIPTION A. Received fresh for frozen section consultation labeled with the patient's name is a specimen designated Right axillary sentinel lymph node. The specimen consists of two irregular fragments of yung, yellow fibrofatty tissue. The smaller fragment measures 3.0 x 2.0 x 1.0cm and the larger fragment measures 4.5 x 3.0 x 1.0cm. Dissection reveals three nodules resembling lymph nodes and ranging in size from 1.0 to 2.0cm in greatest dimension. The largest lymph node contains a metallic clip. The lymph node is submitted for frozen section consultation as follows: Block 1- Two lymph nodes, Block 2&3- Largest lymph node, bisected. AM. 08/11/2024 B. Received in fixative is one container labeled with the patient's name and designated Right breast. The specimen consists of a mastectomy specimen consistent with breast tissue with overlying yung-brown skin ellipse. The specimen is oriented by as *short stitch- superior, long stitch- lateral. Breast tissue measures 24.0 x 19.0 x 5.0cm. Skin ellipse measures 23 x 10 cm. Nipple measures 1.0cm in greatest dimension. No skin lesion is identified. Blue dye discoloration is noted on the superior margin. The specimen is inked as follows: posterior - black, superior - blue, inferior - green, medial - red and lateral - orange. Also present in the container are two wires, not in the breast tissue. More dictation will follow after fixation. SJ. 08/11/2024 Section of the breast tissue reveal a yung indurated mass in the central portion of the breast measuring 1.5 x 1.2 x 1.0cm. Sections of this mass reveal a metallic clip. This mas is 4.5cm away from the closest posterior margin. Section of the rest of the specimen reveals yung-yellow adipose cut surfaces mixed with yung-white fibrous areas. Nurse Informaticist sections are submitted in twelve cassettes as follows: 1- nipple, entirely submitted, 2- perpendicular medial, lateral, superior margin, 3- perpendicular inferior and posterior margins and skin, 4-7- entire tumor, 8- customer sales representative sections adjacent to the tumor, 9-12- customer sales representative sections away from the tumor. Sections are submitted after additional fixation. 08/12/2024 C. Received in fixative is one container labeled with the patient's name and designated Right axillary lymph node. The specimen consists of a piece of adipose tissue measuring 6.0 x 6.5 x 2.0cm. Multiple lymph nodes are identified. Largest lymph node measures 2.5cm in greatest dimension. Nurse Informaticist sections are submitted in three cassettes as follows: 1- one bisected lymph node, 2- one lymph node, 3- multiple lymph nodes. The specimen is submitted in seven additional cassettes: 4-11. 08/17/2024 TC:0 CPT:[id number], [id number]
--- NOTE | 2024-08-11 10:40 | BI_ITS ---
SURGICAL BREAST SPECIMEN RADIOGRAPH CLINICAL: Document presence of tissue clip marker in biopsy specimen. FINDINGS: Specimen shows presence of tissue clip marker. Electronically Signed: Dale Danielson MD at 11:00 EDT , BI/Breast Biopsy Specimen IMPRESSION: undefined
[2024-08-11 11:03] LABS: Magnesium 1.3 mg/dL (1.6-2.6)
[2024-08-11] MEDS: Magnesium Sulfate 2 GM in Dextrose 5%-Water (100mL Bag) 100 ML IV (11:05)
--- NOTE | 2024-08-11 12:30 | OP.PCM_ITS ---
Report of Operation Date of Procedure: 08/11/24 Pre-Operative Diagnosis: Right breast cancer with positive axillary node status post neoadjuvant Post-Operative Diagnosis: Same Surgery/Procedure Performed:: Right mastectomy, sentinel lymph node biopsy with nuclear tracer and blue dye converted to right axillary lymph node dissection Description of Surgical Findings:: 1 out of 3 lymph nodes positive for macrometastasis?positive noticed the clipped node. Surgeon: Lurdes Cormier Assistant: Kendal Zaldivar Type of Anesthesia: General/Supplemental Anesthesiologist: Weston Todd Special Medications: Ancef 2 g IV x 1 Specimen's removed: 1. Right sentinel lymph node, 2. Right mastectomy, 3. Right axillary lymph node dissection contents Drains: MIRANDA drain x 2 Estimated Blood Loss (mL): 10 cc Description of Procedure: Synoptic Portion: Element Response Options Operation performed with curative intent. Yes Resection was performed within the boundaries of the axillary vein, chest wall (serratus anterior), and latissimus dorsi. Yes Nerves identified and preserved during dissection (select all that apply) Long thoracic nerve; Thoracodorsal nerve; Branches of the intercostobrachial nerves Level III nodes were removed. No. In AC the breast tissue was injected with TC-9 9 sulfur colloid. >90 minutes later the patient was taken to the operating room and general anesthesia was induced. 5 cc of methylene blue dye was injected in the 4 quadrants periareolar along with 10 cc of normal saline. This was massaged gently for 5 minutes. The right breast and axilla were prepped and draped in usual sterile fashion. A timeout was completed verifying correct patient, procedure, site, positioning, special equipment prior to beginning procedure. Ultrasound was use for localization of the clipped axillary node using the Kopan's wire. Handheld gamma probe was used to identify the location of the hottest spot in the axilla. Prior to the incision, the counts were 9. The incision was made and the blue node was identified. The probe was placed in contact with the node in the 10 count was 92. Clipped node was also dissected following the Kopan's wire. The bed of the node measured 0 counts. No additional blue or hot nodes were detected. Specimen was sent to radiology to verify clip node removed. Clip was confirmed. Frozen was positive 1 out of 3 nodes with macrometastasis. Macrometastasis was in the clipped node. Skin incision was made that encompassed the nipple areolar complex and the previous biopsy scar in past and generally oblique direction across the breast. Flaps are raised in the avascular plane between the prescription he continues tissues in the breast tissue from the clavicle superiorly, the sternum medially, the anterior rectus sheath inferiorly, and posterolateral border of the pectoralis major muscle laterally. Hemostasis was achieved in the flaps. Next, the breast tissue and underlying pectoralis fascia were excised from the pectoralis major muscle, progressing from medial to laterally. At the lateral border of the pectoralis major muscle, the breast tissue was swung laterally and the lateral pedicle identified with the breast tissue gave way to the fat of the axilla. The lateral pedicle was incised and the specimen removed and oriented for pathology. The wound was irrigated and hemostasis was achieved. The borders of the axillary vein, latissimus dorsi, serratus anterior are identified. The intercostobrachial, long thoracic and thoracodorsal nerves are also identified and protected throughout the dissection. All the nodes within these borders along with the positive lymph node are removed and sent to pathology. The specimen was oriented and sent to pathology. The cavities were irrigated. Hemostasis was checked. Closed suction drains were brought into the operating field through a separate stab incision and sutured to skin with 3-0 nylon suture. The incision was closed with interrupted 2-0 Vicryl to the simultaneously followed by a subcuticular layer of 4-0 Monocryl and Steri-Strips . The SOCIAL SERVICE WORKER assisted with the retraction throughout the case and closure. The wound was dressed and Taran wrap placed. The patient tolerated procedure well was taken to the postanesthesia care in stable condition. Complications none
--- NOTE | 2024-08-11 13:22 | PCM.POST.ANE ---
Anesthesia: Postop Eval I Current Vital Signs Temperature: 98.5 F Pulse Rate: 99 Blood Pressure: 143/67 Respiratory Rate: 18 Pulse Ox: 93 Assessment Airway patent: Yes Spontaneous unlabored respirations: Yes nausea: No Vomiting: No Anesthesia Complication: No Fluid Hydration Crystalloid volume administer (ml): 1,500 Total IV fluid infused: 1,500 Progress Note Anesthesia document: Postop Eval 1 completed: Yes
[2024-08-11] MEDS: Ondansetron 4 MG/2 ML Vial IV (16:08)
--- NOTE | 2024-08-11 17:14 | POSTOPAN2_ITS ---
Anesthesia Postop Eval I Sum Postop Eval Completion status Anesthesia document: Postop Eval 1 completed: Yes Anesthesia Postop Eval I Summary Anesthesia Postop Eval I Summary: Anesthesia Postop Eval I: Assessment Summary Airway patent Yes 08/11/24 13:23 BUTTON [email or web address] Spontaneous unlabored Yes 08/11/24 13:23 BUTTON [email or web address] respirations Mental status nausea No 08/11/24 13:23 BUTTON [email or web address].CSIR Vomiting No 08/11/24 13:23 BUTTON [email or web address] Anesthesia Postop Eval I: Fluid Summary Crystalloid volume administer 1,500 08/11/24 13:23 BUTTON [email or web address].CSIR (ml) Colloids volume administered ( ml) Blood Product volume administered (ml) Total IV fluid infused 1,500 08/11/24 13:23 BUTTON [email or web address].CSIR Anesthesia Postop Eval I: Summary Notes Anesthesia Complication No 08/11/24 13:23 BUTTON [email or web address].CSIR Anesthesia Complication Comment: Post-operative progress note Anesthesia: Postop Eval II Evaluation Mental status: Awake Pain Level: 0 nausea: No Vomiting: No
--- NOTE | 2024-08-11 17:14 | PCM.POSTANE2 ---
Anesthesia Postop Eval I Sum Postop Eval Completion status Anesthesia document: Postop Eval 1 completed: Yes Anesthesia Postop Eval I Summary Anesthesia Postop Eval I Summary: Anesthesia Postop Eval I: Assessment Summary Airway patent Yes 08/11/24 13:23 [email or web address] [email or web address] Spontaneous unlabored Yes 08/11/24 13:23 STAFFING DIRECTOR.[email or web address] respirations Mental status nausea No 08/11/24 13:23 STAFFING DIRECTOR.CSIR Vomiting No 08/11/24 13:23 [email or web address] DIRECTOR.CSIR Anesthesia Postop Eval I: Fluid Summary Crystalloid volume administer 1,500 08/11/24 13:23 STAFFING DIRECTOR.CSIR (ml) Colloids volume administered ( ml) Blood Product volume administered (ml) Total IV fluid infused 1,500 08/11/24 13:23 STAFFING [email or web address].CSIR Anesthesia Postop Eval I: Summary Notes Anesthesia Complication No 08/11/24 13:23 STAFFING DIRECTOR.CSIR Anesthesia Complication Comment: Post-operative progress note Anesthesia: Postop Eval II Evaluation Mental status: Awake Pain Level: 0 nausea: No Vomiting: No
[2024-08-12] MEDS: Acetaminophen 325 MG Tablet 650 MG PO (01:37)
[2024-08-12 04:17] VITALS: BP 121/67; PULSE 90; RESP 16; TEMP 36.9; O2SAT 97
--- NOTE | 2024-08-12 07:12 | DCINST_ITS ---
Discharge Instructions Procedure Breast Surgery Diet Discharge Diet: No restrictions Activity Discharge Activity: May Not Drive (while taking narcotic pain meds.) May shower in (days): 1 Lifting Restrictions: 10 pounds for 2 weeks on the right Dressing / Incision Call your doctor if your incision/area has: Continuous Slow Oozing, Sudden Increased Bleeding, Increased Pain/ Swelling and Increased Redness Call your doctor if you observe: Fever of 101 or Higher Suture Line Care: Avoid Pulling/Pushing Remove Dressing in: 1 day (bulky dressing--change and replace ABD pads/ URVASHI Wrap) Additional Dressing/Incision Instructions:: ok to remove URVASHI Wrap for red ressing but replace URVASHI wrap after?strip MIRANDA twice daily Follow Up Care Please Follow Up With: Lurdes Cormier MD When: Please call [phone] for an appointment to be seen Saturday for MIRANDA removal x 1 Test Results: Test results from this visit will be discussed in further detail at your follow- up appointment, if applicable. Discharge Plan Admission Admit Date/Time: 08/11/24 12:37 Attending Provider: Lurdes Cormier Primary Care Provider: Lex Madsen Discharge Orders/Prescriptions Prescriptions: Continued Gemtesa 75 mg tablet 75 mg PO DAILY ibuprofen 200 mg capsule 800 mg PO Q6H PRN (Reason: pain) loperamide [Imodium A-D] 2 mg capsule 2 mg PO Q6H PRN (Reason: loose stool) lisinopril 20 mg tablet 20 mg PO DAILY Qty: 90 3RF lansoprazole [Prevacid] 30 mg capsule,delayed release(DR/EC) 30 mg PO DAILY Qty: 30 2RF potassium chloride 20 mEq tablet,ER particles/crystals 20 meq PO BID Qty: 60 2RF ondansetron 8 mg tablet,disintegrating 8 mg PO Q8H PRN (Reason: nausea and vomiting) Qty: 30 0RF magnesium oxide 400 mg magnesium capsule 400 mg PO TID Qty: 90 2RF Referrals / Follow Up: Lex Madsen DO [Primary Care Provider] - Disposition Disposition (needs filled in before D/C Order can be placed): Home, Self Care
--- NOTE | 2024-08-12 07:12 | PCM.PN.SRG ---
Objective Data Objective Data Vital Signs: Vital Signs Temp Pulse Resp BP Pulse Ox O2 Del Method O2 Flow Rate 98.5 F 90 16 121/67 H 97 Room Air 1 08/12/24 04:17 08/12/24 04:17 08/12/24 04:17 08/12/24 04:17 08/12/24 04:17 08/12/24 04:17 08/11/24 15:11 Oxygen Flow Rate (L/min) 1 Oxygen Delivery Method Room Air Weight: 189 lb 9.561 oz Body Mass Index (BMI) 30.6 Intake & Output: Intake and Output for Last 24 Hours 08/10/24 08/11/24 08/12/24 23:59 23:59 23:59 Intake Total 1124 / 1124 Output Total 160 / 160 70 / 70 Balance 964 / 964 -70 / -70 Lab / Micro Data 08/12/24 06:55 08/12/24 06:55 Labs: Laboratory Results - last 24 hr 08/11/24 10:36: Magnesium 1.3 L Radiography Diagnostic Testing: Radiology Impression Soft Tissue Ultrasound 08/10/24 11:25 IMPRESSION: Tissue clip marker is seen within the 1.3 cm x 0.5 cm x 0.5 cm lymph node. Electronically Signed: Dale Danielson MD at 13:44 EDT , [place] Node 08/11/24 07:06 IMPRESSION: 1.2 mCi of technetium labeled sulfur colloid was injected subcutaneously in the periareolar region for sentinel node imaging. Electronically Signed: Dale Danielson MD at 11:19 EDT , Breast Biopsy 08/11/24 10:40 IMPRESSION: undefined Physical Exam Narrative Patient's right mastectomy incision clean dry and intact/dressed. JPs more serosanguineous x 2 Const oriented x3 and no apparent distress Resp normal respiratory effort Cardio regular rate Assessment & Plan Assessment/Plan (1) S/P right mastectomy: (2) History of lymph node dissection of right axilla: PLAN: Plan Patient tolerating p.o. Continue Taran wrap MIRANDA teaching [place] home plan to follow-up in office on Saturday for MIRANDA removal x 1. Patient agreeable plan. Lurdes Cormier M.D. Pager: [phone] [facility] [address] [place] [address], [facility], [address] [place] [address] Office: [phone]
[2024-08-12 07:17] LABS: Absolute Lymphocyte Count 0.34 X10^3/uL (0.83-4.51); Absolute Neutrophil Count 6.5 X10^3/uL (2.0-7.7); Basophil# 0.01 X10^3/uL; Basophil% 0.1 % (0-1); Hematocrit 25.4 % (37-47); Hemoglobin 8.2 g/dL (12.0-15.0); Lymphocyte # 0.34 X10^3/ul (0.83-4.51); Lymphocyte % 4.6 % (19-41); Mean Corp Hgb Conc 32.3 g/dL (32-36); Mean Corpuscular Hgb 32.8 pg (27.0-32.0); Mean Corpuscular Volume 101.6 fL (81-99); Mean Platelet Vol. 9.1 fl (6.2-12.0); Monocyte% 6.8 % (0-10); NRBC Flagged by Analyzer 0 % (0-5); Neutrophil # 6.51 X10^3/uL (2.7-7.7); Neutrophil % 88.2 % (47-70); POSITIVE DIFFERENTIAL YES; Platelet Count 324 K/mm3 (150-450); RBC Distribution Width CV 16.1 % (11.6-14.6); RBC Distribution Width SD 60.4 fl (35.1-43.9); White Blood Count 7.4 K/mm3 (4.4-11.0)
[2024-08-12 07:38] LABS: Anion Gap 7 (5-15); BUN 22 mg/dL (7-18); BUN/Creat Ratio 22.9 RATIO (10-20); Calcium,Total 8.6 mg/dL (8.5-10.1); Chloride 101 mmol/L (98-107); Creatinine, Serum 0.96 mg/dL (0.55-1.02); EST Glomerular Filtration Rate 61 mL/min (>60); Est Glom Filt Rate - Afr Amer 74 mL/min (>60); Glucose 112 mg/dL (74-106); Magnesium 1.7 mg/dL (1.6-2.6); Potassium 3.8 mmol/L (3.5-5.1); Sodium Level 136 mmol/L (136-145)
[2024-08-12 07:50] VITALS: BP 135/73; PULSE 89; RESP 14; TEMP 36.4; O2SAT 99
[2024-08-12] MEDS: Pantoprazole Sodium 40 MG Tablet PO (08:00)
[2024-08-12] MEDS: Vibegron 75 MG TABLET PO (08:00)
[2024-08-12] MEDS: Lisinopril 20 MG Tablet PO (08:00)
[2024-08-12 08:09] VITALS: PULSE 89; O2SAT 99
--- NOTE | 2024-08-12 09:50 | CASEMGMT ---
Pt has an order for DC placed. BRIA CM to pt room at this time. Pt at bedside. Pt states that she feels safe discharging home today with no additional needs, including HHC and OP Tx. Pt states that she is able to care for her drains at home. Pt states that her takes great care of her. Pt denies further questions or concerns at this time.
--- NOTE | 2024-08-12 10:48 | PHA.DC.MR.R ---
Pharmacy [place] Med Reconciliation Pharmacy Service has performed discharge medication reconciliation for this patient. The patient's discharge medication list was reviewed for discrepancies and discrepancies were resolved. Medications at Discharge Home Medications vibegron 75 mg tablet (Gemtesa) 75 mg PO DAILY 03/13/23 ibuprofen 200 mg capsule 800 mg PO Q6H PRN pain 03/19/24 lisinopril 20 mg tablet 20 mg PO DAILY #90 tabs 04/03/24 loperamide 2 mg capsule (Imodium A-D) 2 mg PO Q6H PRN loose stool 04/03/24 lansoprazole 30 mg capsule,delayed release (Prevacid) 30 mg PO DAILY #30 caps 04/30/24 magnesium oxide 400 mg PO TID #90 caps 06/09/24 ondansetron 8 mg disintegrating tablet 8 mg PO Q8H PRN nausea and vomiting #30 tabs 06/11/24 potassium chloride 20 mEq tablet,extended release(part/cryst) 20 meq PO BID #60 tabs 06/11/24
[2024-08-12 12:08] VITALS: BP 115/68; PULSE 80; RESP 16; TEMP 36.7; O2SAT 99
== END 2024-08-12 12:15 | disposition home or self-care (01) ==
LOC: SDC 13:38 → MS3 13:38
PROVIDERS: Anesthesiology; Admitting Provider Surgery; PCP Family Medicine; Referring Provider Surgery; Visit Provider Surgery
PROC: (CPT 19307; principal; 2024-08-11 09:15)
DX: C50.911 Malignant neoplasm of unspecified site of right female breast (principal); R59.9 Enlarged lymph nodes, unspecified; Z17.0 Estrogen receptor positive status [ER+]; Z79.899 Other long term (current) drug therapy; K21.9 Gastro-esophageal reflux disease without esophagitis; I10 Essential (primary) hypertension
CPT/HCPCS: 19303; 38525; 36415; 38792; 76098; 76882; 80048; 83735; 85025; 88305; 88309; 88331; 88341; 88342; 93005; 96374; 99221; A4648; A9541; J7120; A4216; G0378; J2405; J3490

== ENCOUNTER → 2024-09-04 | Outpatient (CLI) | payer MEDICARE, SELFPAY ==
--- NOTE | 2024-09-04 15:24 | CT_ITS ---
INDICATION: GROSS HEMATURIA EXAMINATION: CT ABDOMEN AND PELVIS WITH AND WITHOUT CONTRAST - CT Abdomen And Pelvis WO/W Contrast Injection TECHNIQUE: Helically acquired images were obtained of the abdomen and pelvis both before and after IV contrast. The protocol utilizes one or more of the following dose reduction techniques: automated exposure control, adjustment of mA and/or kV according to patient size,and/or use of iterative reconstruction technique. IV Contrast dosage and agent: 100 cc of Isovue-300 Oral contrast: None. RADIATION DOSAGE (If Supplied By Facility): CTDIvol = ( 18.95 ) mGy, DLP = ( 3387.42 ) mGycm COMPARISON: Prior study dated: 07/17/2024 FINDINGS: LOWER CHEST: Lung bases are clear. No cardiomegaly or pericardial effusion. LIVER: Homogeneous. No focal mass. GALLBLADDER AND BILIARY TREE: No calcified gallstones. No gallbladder distension or wall edema. No intra- or extrahepatic biliary ductal dilation. PANCREAS: No focal cystic or solid mass. SPLEEN: Normal size without focal cystic or solid mass. ADRENAL GLANDS: No nodules. KIDNEYS AND URETERS: Unremarkable right kidney. Previously noted left-sided double-J stent catheter has been removed. Moderate right hydronephrosis and hydroureter increased since the previous exam. Mild thickening of the ureteral wall. PERITONEUM: Previously noted left para-aortic lesion at the level of L4 adjacent to the left ureter has again decreased in size. It measures now about 2 x 1.1 cm. Previously measured 2.4 x 1.0 cm. No evidence of free air or free fluid. BOWEL: No evidence of acute appendicitis. No stomach or bowel distension. No focal inflammatory change. LYMPH NODES: No enlarged mesenteric or retroperitoneal lymph nodes. VESSELS: Atherosclerotic calcifications of the abdominal aorta without evidence of aneurysm. URINARY BLADDER: Grossly unremarkable but under distended. REPRODUCTIVE ORGANS: Absent uterus consistent with previous hysterectomy. ABDOMINAL WALL: Very small umbilical hernia containing fat. BONES: No lytic or blastic abnormality. CT/CT Abd/Pelvis W/WO Contrast IMPRESSION: 1. Interval removal of left double-J stent catheter with moderate left hydronephrosis and hydroureter increased since previous exam. 2. Retroperitoneal cystic lesion decreased in size as described above. 3. Otherwise no focal acute inflammatory process. Electronically Signed: Jesse Orlando MD at 8:40 EST ,
[2024-09-04] MEDS: 0.9 % NaCl (Sterile) Posiflush 10 mL IV (15:25)
== END | disposition home or self-care (01) ==
LOC: CT 15:04
PROVIDERS: PCP Family Medicine; Referring Provider Urology; Visit Provider Urology
DX: R31.0 Gross hematuria (principal); N13.30 Unspecified hydronephrosis
CPT/HCPCS: 74178; Q9967; A4216

== ENCOUNTER → 2024-09-22 | Outpatient (CLI) | payer MEDICARE, SELFPAY ==
--- NOTE | 2024-09-22 | IMM_PTH ---
PATIENT: KATHY URIAS LOC: [facility] U#:[id number] AGE/SX: 69/F ROOM: RE09/22/[address]: Dr. Lurdes Cormier MD : 1955 BED: DIS: 09/22/2024 SPEC #: [id number] RECD: 09/23/24 11:55 STATUS: EREN REQ #: [id number] TERESA: 09/22/24 00:[address]: Lurdes Cormier DEPT: IMMUNOHISTOCHEMISTRY RECD BY: Jed Myers ENTERED: 09/23/24 11:56 SP TYPE: IMMUNO OTHR DR: Dr. Lex Madsen, DO Tissues: Right breast, NOS Procedures: CK7 (add) CK8 (add) KI-67 (add) MAMM (add) P53 (add) Vimentin (add) Pankeratin (initial) GATA3 (add) CD68 (ADD) PHYSICIAN & INSTITUTION [place] [id number] SPECIMEN INFORMATION: Tissue Source: Right inferior lateral mastectomy incision nodule Clinical Info: Right breast nodule Specimen Number: [id number] CPT code: 38734,89382y3 METHODOLOGY: Deparaffinized sections of prefer/formalin-fixed tissue or PAP/DQ stained slides are incubated with monoclonal/polyclonal antibodies/oligonucleotide probes. Localization is made via biotin free immunoperoxidase method. Appropriate controls are performed and reacted as expected. Results on target cell population are indicated in the following table: RESULTS: ANTIBODY / CLONE RESULT Mammaglobin (31A5) negative GATA3 (L50-823) negative AE1-3 (AE1/AE3/PCK26) negative CK7 (OV-TL12/30) negative CK8 (75mfxaC93) negative Vimentin (V9) positive CD68 (KP-1) positive P53 (DO-7) negative, null pattern Ki-67 (30-9) positive, rare cells These tests were developed and their performance characteristics determined by [facility]. They may not have been cleared or approved by the U.S. Food and Drug Administration. The FDA has determined that such clearance or approval is not necessary. The above immunohistochemical/dualISH markers are ordered and reviewed by the Pathologist. INTERPRETATION: Right inferior lateral mastectomy incision, biopsy: No evidence of malignancy. AMIsabela 09/24/2024
--- NOTE | 2024-09-22 09:30 | BRBX_PTH ---
PATIENT: KATHY URIAS LOC: [facility] U#:[id number] AGE/SX: 69/F ROOM: RE09/22/[address]: Dr. Lurdes Cormier MD : 1955 BED: DIS: 09/22/2024 SPEC #: [id number] RECD: 09/22/24 10:05 STATUS: EREN EMMANUEL #: [id number] TERESA: 09/22/24 09:[address]: Lurdes Cormier DEPT: SURGICAL PATHOLOGY RECD BY: Kennedi Lu ENTERED: 09/22/24 10:26 SP TYPE: BREAST BX OTHR DR: Dr. Lex Madsen, DO Tissues: Right breast, NOS Procedures: Surgery Specimen Level IV HEADER OPERATION: Biopsy of mastectomy site PRE-OP DIAGNOSIS: Right breast nodule TISSUE SUBMITTED: Right inferior lateral mastectomy incision nodule Ischemic Time: 1 minute Fixation Time: 11 hours MICROSCOPIC DIAGNOSIS Right breast nodule, core biopsy: Fat necrosis fibrosis, minimal chronic inflammation and fibrinoid degeneration. No evidence of malignancy. See comment. AM. 09/23/2024 COMMENT Immunohistochemistry ([id number]) supports the above diagnosis. Case is discussed with Dr. Cormier 09/23/24. MICROSCOPIC DESCRIPTION Slides are reviewed. GROSS DESCRIPTION Received in fixative is one container labeled with the patient's name and designated Right breast biopsy. The specimen consists of multiple irregular fragments of yung tissue measuring in aggregate 0.7 x 0.3 x 0.1cm. The specimen is totally submitted in one cassette. AM. 09/22/2024 TC:3 CPT:49681
== END | disposition home or self-care (01) ==
LOC: LABSPEC 10:13
PROVIDERS: PCP Family Medicine; Referring Provider Surgery; Visit Provider Surgery
DX: N64.1 Fat necrosis of breast (principal)
CPT/HCPCS: 88305; 88341; 88342

== ENCOUNTER → 2024-11-16 | Outpatient (CLI) | payer MEDICARE, SELFPAY ==
--- NOTE | 2024-11-16 12:46 | ECHODONC_ITS ---
Reason For Study: Street And Building Decorator Drug Therapy Procedure This was a 2D Doppler, Color Flow transthoracic echocardiogram. Myocardial strain analysis was performed in this exam to aid in the assessment of cardiac function. Exam performed in department. Left Ventricle Normal left ventricle. The global longitudinal strain = -17.4 % (normal). The left ventricular ejection fraction is 60 %. No regional wall motion abnormalities noted. Right Ventricle Normal RV size. Normal systolic function. Atria Normal left atrium. Normal right atrium. Mitral Valve Normal mitral valve. Tricuspid Valve Normal tricuspid valve. Aortic Valve Normal aortic valve. Trisinus/trileaflet aortic valve. Pulmonic Valve Normal pulmonic valve. Great Vessels Normal aortic root. The pulmonary artery is normal size. Inferior vena cava collapse with respiration. Pericardium/Pleural No pericardial effusion. MMode/2D Measurements & Calculations LVIDd: 4.3 cm IVSd: 1.1 cm Ao root diam: 3.4 cm LVIDs: 3.1 cm LVPWd: 0.84 cm RVDd: 3.1 cm FS: 27.9 % asc Aorta Diam: 3.6 cm LAV(MOD-bp): 42.1 ml LVAd ap4: 19.4 cm2 LAV(MOD-bp) Indexed: 23.0 ml/m2 LVLd ap4: 6.8 cm LAV(MOD-sp2): 45.3 ml EDV(MOD-sp4): 46.5 ml LAV(MOD-sp4): 36.4 ml EDV(sp4-el): 47.1 ml LVAs ap4: 11.5 cm2 LVLs ap4: 6.1 cm ESV(MOD-sp4): 19.9 ml ESV(sp4-el): 18.4 ml EF(MOD-sp4): 57.2 % EF(sp4-el): 61.0 % SV(MOD-sp4): 26.6 ml SV(sp4-el): 28.7 ml LA A4 area: 14.8 cm2 SI(MOD-sp4): 14.5 ml/m2 LA dimension(2D): 3.2 cm RA A4 area: 11.0 cm2 TAPSE: 1.7 cm Time Measurements MV dec time: 0.18 sec Doppler Measurements & Calculations MV E max bobo: 56.6 cm/sec Lat Peak E' Bobo: 7.3 cm/sec Med Peak E' Bobo: 5.4 cm/sec MV A max bobo: 71.7 cm/sec E/E' lat: 7.7 E/E' med: 10.4 MV E/A: 0.79 MV V2 max: 88.3 cm/sec MV P1/2t max bobo: 67.9 cm/sec Ao V2 max: 122.7 cm/sec MV max P.1 mmHg MV P1/2t: 46.7 msec Ao max P.1 mmHg MV V2 mean: 55.9 cm/sec Ao V2 mean: 83.1 cm/sec MV mean P.4 mmHg MV dec slope: 426.0 cm/sec2 Ao mean P.2 mmHg MV V2 VTI: 15.4 cm MVA(P1/2t): 4.7 cm2 Ao V2 VTI: 21.1 cm AV (velocity ratio): 0.94 LV V1 max: 108.5 cm/sec PA V2 max: 116.0 cm/sec TR max bobo: 176.8 cm/sec LV V1 max P.7 mmHg TR max P.5 mmHg LV V1 mean P.2 mmHg LV V1 mean: 67.6 cm/sec LV V1 VTI: 19.8 cm ECHO/ONC Echo Complete Interpretation Summary Normal left ventricle. The global longitudinal strain = -17.4 % (normal). The left ventricular ejection fraction is 60 %. The global longitudinal strain is normal. Ordering Physician: Alley Walden Referring Physician: Alley Waledn Performed By: Ethan Owens RCS
== END | disposition home or self-care (01) ==
LOC: CVS 12:45
PROVIDERS: PCP Family Medicine; Referring Provider Nurse Practitioner Family; Visit Provider Nurse Practitioner Family
DX: C50.411 Malignant neoplasm of upper-outer quadrant of right female breast (principal); C77.9 Secondary and unspecified malignant neoplasm of lymph node, unspecified; Z51.81 Encounter for therapeutic drug level monitoring; Z79.899 Other long term (current) drug therapy
CPT/HCPCS: 93306; 93356

== ENCOUNTER 2024-11-17 10:51 | Outpatient (RCR) | payer MEDICARE, SELFPAY ==
--- NOTE | 2024-11-17 11:57 | HP.OTEVAL ---
Patient's Visit Information Visit Information Visit Information: LYSSA VASQUEZ is a 69 year old F, referred to Occupational Therapy by Dr. New Ibrahim, DO, with a diagnosis of malignant neoplasm of upper-outer quadrant R, malignant neoplasm lymph node. Date of Evaluation: 11/17/24 Occupational Therapist: Jackie Stuart Subjective Subjective: This 69 year old female arrives with dx of R breast ca regional lymph node metastasis. malignant neoplasm of upper outer quadrant lymph node dissection 18 lymph nodes-- 1 positive out of the 18. masectomy complete August 11 2024 followed by 16 treatments of radiation in September. Pt has not yet noticed swelling in R arm pt denies issues with ROM at this time. pt does have hypersensitivity in axillary region as well as some numbness. Pt currenty doing chemo every 3 weeks until June. next treatment planned for Nov. 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 From 06/25/2023 ? 07/29/2023 she received adjuvant radiation therapy to the pelvis. She has now been diagnosed with clinical stage IIA (cT1c cN0 Mx, ypT1c ypN1a) grade 1 invasive ductal carcinoma (ER > 95%, WV 64%, HER2 3+ IHC) of the right breast 10 o?clock location status post bilateral diagnostic mammogram and right breast ultrasound (01/30/2024), and right breast ultrasound-guided biopsy (02/11/2024). Completed TCHP x 6 cycles (02/2024 ? 06/2024) and completed right mastectomy and SLNBx with axillary dissection (08/11/2024). From 09/21/2024 ? 10/12/2024 she received adjuvant radiation therapy to the right chest wall and regional lymph nodes. She initiated Kadcyla in early September. Objective Objective/Observation: pt arrives no swelling noted to R UE no cording present in axillary region. pt does demonstrate slight tightness however has full ROM at this time. pt has been to [employer] prior to appointment this date who assisted her in getting proper bra and clothing items. ROM Shoulder: wfl Elbow: wfl Forearm: wfl Wrist: wfl ROM Comments: able to perform shoulder flexion as well as horizontal abduction full ranges does report some tightness in R arm when performing Sensation Sensation Comments: does report some hypersensitivity in scar region however has improved with healing and now able to tolerate wearing bra and clothing Goals Goal: Patient will demonstrate adequate knowledge of skin care and precautions by the end of the first week.: Yes Goal: Patient will demonstrate adequate knowledge of therapeutic exercises by discharge.: Yes Goal:: pt will demonstrate adequate knowledge in scar massage by second session if swelling occurs, pt will select appropriate compression garment and demo adequate knowledge in donning and doffing as well as proper wear schedule. Rehabilitation General Assessment: This 69 year old female arrives with dx of malignant neoplasm of R upper quadrant as well as lymph node s/p masectomy and lymph dissection (18) followed by radiation as well as chemo. At this time pt does not demonstrate any swelling in RUE. no cording noted in axillary region. slight tightness palpated however pt is able to demo full range of motion at this time. OT eval to provide information on lymphedema prevention, ROM to prevent loss of ER, shoulder flexion/ abduction as well as ed on scar massage and precautions to prevent infection. pt provided with HEP this date and will schedule follow up appointment as needed based on if swelling develops in RUE. Rehabilitation Potential: Good Anticipated Interventions Anticipated Interventions: A/AAROM/PROM, Scar Care, Desensitization, Education re Diagnosis, Education re Skin Care and Precautions, Education re Self Massage Techniques, Education re Correct Donning Tech,Care&Wearing Sched Comp Garments and Home Program Visit Plan Frequency: 3 sessions Duration: 3 Months General Plan: skin care UE exercise scar mobilization compression garment as needed TEXT: Thank you for the opportunity to evaluate your patient. For Medicare and Medicare HMO plans, please review the plan of care and approve it. It will need to be FAXED BACK to us at [phone] for Medicare purposes. Please let me know if there are questions or concerns regarding this plan of care. Physician Signature: Date:
--- NOTE | 2025-01-28 08:48 | HP.OT.NRP ---
Patient Information Patient Information: KATHY URIAS was seen in my office for initial evaluation on 11/17/24. The following Plan of Care was established for this patient: POC Established Initial Frequency: 3 sessions Initial Duration: 3 Months Anticipated Interventions Anticipated Interventions: A/AAROM/PROM, Scar Care, Desensitization, Education re Diagnosis, Education re Skin Care and Precautions, Education re Self Massage Techniques, Education re Correct Donning Tech,Care&Wearing Sched Comp Garments and Home Program Last Seen Last Seen: This patient was last seen in our office 11/17/24. 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 Pt seen for evaluation and information provided on skin care exercise as well as compression as needed. discharge at this time due to lapse in time of services with no additional appointments scheduled at this time. At this point I will be discontinuing this patient from occupational therapy. I would be happy to see this patient again in the future if found appropriate by the physician. Thank you! Jackie Stuart
== END 2024-11-17 19:00 | disposition home or self-care (01) ==
LOC: OT 10:51
PROVIDERS: PCP Family Medicine; Referring Provider Student in an Organized Health Care Education/Training Program; Visit Provider Student in an Organized Health Care Education/Training Program
DX: C50.411 Malignant neoplasm of upper-outer quadrant of right female breast (principal); C77.9 Secondary and unspecified malignant neoplasm of lymph node, unspecified
CPT/HCPCS: 97165; 97530

== ENCOUNTER 2025-01-12 12:52 | Day surgery (SDC) | payer MEDICARE, SELFPAY ==
--- NOTE | 2025-01-08 16:19 | PAT.ANESEVAL ---
Pre-Assessment Diagnosis/Proposed Procedure Planned Operative Procedure(s): Flexible Sigmoidoscopy Anesthesia History Anesthesia History - pmp certified project manager: Anesthesia History - pmp certified project manager Hx Hospitalization Yes: MASTECTOMY 11-01/08/25 14:53 Any Problems With Anesthesia No 01/08/25 14:53 Cholinesterase deficiency No 01/08/25 14:53 You/Your Family Experience No 01/08/25 14:53 fever (hyperthermia) with Relationship Recent Exposure to Contagious No 08/11/24 07:14 Disease Does patient have nerve No 01/08/25 14:53 stimulator Patient instructed to have device shut off --Does patient have Pacemaker or ICD? When Was Last Pacemaker Check QUESTION #4 FULL TEXT: You/Your Family Experience fever (hyperthermia) with Anesthesia Last Oral Intake Last Oral intake: Last Oral Intake NPO since Meds taken in AM with sips of water? Meds patient instructed to take am of surgery PONV PONV - pmp certified project manager: PONV - pmp certified project manager Female Yes 01/08/25 14:53 HX of Motion Sickness Yes 01/08/25 14:53 HX of N/V After Surgery No 01/08/25 14:53 Non-Smoker Yes 01/08/25 14:53 Duration of Surgery greater No 01/08/25 14:53 than 60 minutes Number of Risk Factors 3 01/08/25 14:53 PONV Score Moderate Risk 01/08/25 14:53 Height & Weight Height & Weight: Anesthesia: Height & Weight Height 5 ft 6 in 12/28/24 10:33 Respiratory Assessment Respiratory Assessment - pmp certified project manager: Respiratory Tract Infection Hx - pmp certified project manager Hx Respiratory Tract Infection No 01/08/25 14:53 STOP Sleep Apnea STOP Sleep Apnea - pmp certified project manager: STOP Sleep Apnea - pmp certified project manager Hx Hypertension Yes: ON MEDS 01/08/25 14:53 Hx Sleep Apnea No 01/08/25 14:53 CPAP BIPAP Do you snore loudly (louder No 01/08/25 14:53 than talking or can be heard Do you often feel tired/ No 01/08/25 14:53 fatigued/ sleepy during daytime? Has anyone observed you stop No 01/08/25 14:53 breathing during sleep? STOP Results Negative 01/08/25 14:53 QUESTION #5 FULL TEXT : Do you snore loudly (louder than talking or can be heard through closed doors)? Tobacco Use History Tobacco Use History - pmp certified project manager: Tobacco Use History - pmp certified project manager Tobacco Use Smoking Status Never smoker 01/08/25 14:53 Hx Tobacco Use No 01/08/25 14:53 Years Smoking Packs Smoked per Day Smoking Cessation Date was within the last 15 years Hx Smoking Cessation Date Hx Smoking Cessation Counseling Hematologic Medial History Hematologic Hx - pmp certified project manager: Hematologic Medical Hx - all around presser Hx of Blood Transfusion Yes 01/08/25 14:53 Hx of Transfusion in last 3 No 01/08/25 14:53 Months Date of Last Transfusion (if within last 3 months) Ever experience any problems No 01/08/25 14:53 with transfusion(s)? Specify any problems Hx of Preganancy in last 3 No 01/08/25 14:53 Months Nurse Filling Out Transfusion JZOLLINGE 01/08/25 14:53 & Questions: Date: 01/08/25 01/08/25 14:53 Time: 14:56 01/08/25 14:53 Patient unable to answer at this time (ie. confused, unrespo /Reproduction History /Reproductive History - pmp certified project manager: /Reproductive Hx- pmp certified project manager Hx Now No 01/08/25 14:53 Gestational Age (in weeks): EDC: Hx Hx Para Hx Section SAB No 01/08/25 14:53 PFSH Medical History (Updated 01/08/25 @ 15:04 by Jalyn Ackerman) 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 Blood in urine Rectal bleeding Diarrhea due to drug Prerenal azotemia Dysuria Anemia due to chronic blood loss Gastric reflux Acid reflux Edema of both lower legs Mass in the abdomen Hypomagnesemia Diarrhea Encounter for chemotherapy management Abnormal CT of the abdomen Port-A-Cath in place Anxiety Bladder disease History of diverticulitis History of echocardiogram Cancer of right female breast Encounter for education Wears hearing aid Wears glasses Wears contact lenses Post-menopausal Cancer Back pain Migraine headache Non-smoker History of edema History of stress test Cardiology follow-up encounter Hx of vaginal delivery Mitral valve prolapse Chronic headaches Back problem Anemia Arthritis Hypertension Home Medications ?Medication ?Instructions ?Recorded ?Last Taken ?Type vibegron 75 mg tablet (Gemtesa) 75 mg PO DAILY 03/13/23 08/10/24 History ibuprofen 200 mg capsule 800 mg PO Q6H PRN pain 03/19/24 Unknown History loperamide 2 mg capsule (Imodium 2 mg PO Q6H PRN loose stool 04/03/24 08/11/24 History A-D) acetaminophen 500 mg tablet 500 mg PO Q6H PRN pain 08/13/24 Unknown History (Tylenol Extra Strength) ondansetron 8 mg disintegrating 8 mg PO Q8H PRN nausea and 08/17/24 Unknown Rx tablet vomiting #20 tabs potassium chloride 20 mEq 20 meq PO BID #60 tabs 11/10/24 Unknown Rx tablet,extended release(part/cryst) lisinopril 40 mg tablet 40 mg PO DAILY #90 tabs 11/27/24 Unknown Rx magnesium oxide 400 mg PO TID #90 caps 12/08/24 Unknown Rx hydrocortisone acetate 25 mg 25 mg IN QHS #12 ea 12/28/24 Unknown Rx rectal suppository (Anusol-HC) Allergy/AdvReac Type Severity Reaction Status Date / Time No Known Allergies Allergy Verified 01/08/25 14:39 Family History Mother Diabetes Hypertension Osteoarthritis Colon cancer Grandfather Heart disease Sister Lupus Fibromyalgia Sister , December 2022 from post op PE Endometrial cancer Father Cancer prostate. Surgical History (Updated 01/08/25 @ 15:04 by Jalyn Ackreman) H/O right mastectomy History of lymph node dissection of right axilla S/P right mastectomy History of renal stent Hx of cystoscopy Hx of surgical procedure Status post total hysterectomy and bilateral salpingo-oophorectomy S/P cystoscopy Hx of right breast biopsy Hx of colonoscopy History of orthopedic surgery History of excision of pilonidal cyst Social History Smoking Status: Never smoker alcohol intake: never substance use type: does not use caffeine: Yes what type of physical activity do you participate in: walking frequency: 3-4 times per week seatbelt use: always do you feel safe at home: Yes additional social history: -Dony Audit: Pertinent Findings Pertinent Findings EKG Perinent findings: NSR Echo (EF%) pertinent findings: Echo (11/16/24): Left Ventricle Normal left ventricle. The global longitudinal strain = -17.4 % (normal). The left ventricular ejection fraction is 60 %. No regional wall motion abnormalities noted. Right Ventricle Normal RV size. Normal systolic function. Atria Normal left atrium. Normal right atrium. Mitral Valve Normal mitral valve. Tricuspid Valve Normal tricuspid valve. Aortic Valve Normal aortic valve. Trisinus/trileaflet aortic valve. Recommendation Anesthesia Recommendation Anesthesia recommendation: OPTIMIZED for anesthesia
[2025-01-12] VITALS (8 sets, daily range): BP systolic 133–172; BP diastolic 64–89; PULSE 90–103; RESP 16–18; TEMP 36.4–37; O2SAT 96–98; BMI 25.9
--- NOTE | 2025-01-12 13:44 | PRE.ANES_ITS ---
ASA Classification* ASA Classification ASA Classification: 3 Assessment & Plan Anesthesia* Anesthesia Assessment Anesthesia Assessment: Discussed sedation and/or anesthesia options, risks, benefits, and alternatives with patient/parents/legal guardian/POA. Questions invited. The patient/parents/legal guardian/POA seems to understand and agrees to proceed with anesthesia plan. Reviewed the physical assessment, medical history, allergy history and patient home medications list prior to surgery/procedure/anesthetic and documented any changes. Performed airway and anesthesia risk assessments. Anesthesia Type Anesthesia Type: MAC History Source History Obtained from:: Patient and Chart Anesthesia Focused Assessment* Temperature: 98.6 F Pulse Rate: 103 Blood Pressure: 172/89 Respiratory Rate: 16 Pulse Ox: 98 Oxygen Delivery Method: Room Air Airway Assessment Mouth opens: >3 cm Mallampati Score: II Teeth Condition: Intact Neck Range of motion (ROM): Limited ROM (Slight decrease in extension) Focused Labs Anesthesia Preop lab: CBC WBC 2.9 K/mm3 (4.4-11.0) L 01/07/25 07:45 01/07/25 RBC 3.60 M/mm3 (4.2-5.4) L 01/07/25 07:45 01/07/25 Hgb 11.4 g/dL (12.0-15.0) L 01/07/25 07:45 5 Hct 34.3 % (37-47) L 01/07/25 07:45 01/07/25 Plt Count 166 K/mm3 (150-450) 01/07/25 07:45 01/07/25 CHEMISTRY Potassium 3.6 mmol/L (3.3-5.1) 01/07/25 07:45 01/07/25 Sodium 138 mmol/L (133-145) 01/07/25 07:45 01/07/25 Magnesium 1.4 mg/dL (1.5-2.2) L 01/07/25 07:45 01/07/25 Phosphorus 3.3 mg/dL (2.7-4.5) 01/07/25 07:45 01/07/25 BUN 18 mg/dL (4-19) 01/07/25 07:45 01/07/25 Creatinine 0.66 mg/dL (0.70-1.20) L 01/07/25 07:45 Glucose 88 mg/dL (70-99) 01/07/25 07:45 01/07/25 POC Glucose 109 mg/dL (74-106) H 04/02/23 08:44 04/02/23 COAG PT 13.0 SECONDS (11.7-14.9) 03/25/23 08:44 Pre-Assessment Diagnosis/Proposed Procedure Planned Operative Procedure(s): Flexible Sigmoidoscopy Anesthesia History Anesthesia History - strategy execution consultant: Anesthesia History - strategy execution consultant Hx Hospitalization Yes: MASTECTOMY -01/08/25 14:53 Any Problems With Anesthesia No 01/08/25 14:53 Cholinesterase deficiency No 01/08/25 14:53 You/Your Family Experience No 01/08/25 14:53 fever (hyperthermia) with Relationship Recent Exposure to Contagious No 08/11/24 07:14 Disease Does patient have nerve No 01/08/25 14:53 stimulator Patient instructed to have device shut off --Does patient have Pacemaker No 01/12/25 13:17 or ICD? When Was Last Pacemaker Check QUESTION #4 FULL TEXT: You/Your Family Experience fever (hyperthermia) with Anesthesia Last Oral Intake Last Oral intake: Last Oral Intake NPO since 07:00 01/12/25 13:17 Meds taken in AM with sips of Yes 01/12/25 13:17 water? Meds patient instructed to take am of surgery Any additional information?: Yes NPO since: 07:00 (Patient took meds with sip of water at 7 AM.) Meds taken in AM with sips of water?: Yes PONV PONV - strategy execution consultant: PONV - strategy execution consultant Female Yes 01/08/25 14:53 HX of Motion Sickness Yes 01/08/25 14:53 HX of N/V After Surgery No 01/08/25 14:53 Non-Smoker Yes 01/08/25 14:53 Duration of Surgery greater No 01/08/25 14:53 than 60 minutes Number of Risk Factors 3 01/08/25 14:53 PONV Score Moderate Risk 01/08/25 14:53 Height & Weight Height & Weight: Anesthesia: Height & Weight Height 5 ft 6 in 01/12/25 13:17 Weight: 73 kg 01/12/25 13:17 Body Mass Index (BMI) 25.9 01/12/25 13:17 Respiratory Assessment Respiratory Assessment - strategy execution consultant: Respiratory Tract Infection Hx - strategy execution consultant Hx Respiratory Tract Infection No 01/08/25 14:53 STOP Sleep Apnea STOP Sleep Apnea - strategy execution consultant: STOP Sleep Apnea - strategy execution consultant Hx Hypertension Yes: ON MEDS 01/08/25 14:53 Hx Sleep Apnea No 01/08/25 14:53 CPAP BIPAP Do you snore loudly (louder No 01/08/25 14:53 than talking or can be heard Do you often feel tired/ No 01/08/25 14:53 fatigued/ sleepy during daytime? Has anyone observed you stop No 01/08/25 14:53 breathing during sleep? STOP Results Negative 01/08/25 14:53 QUESTION #5 FULL TEXT : Do you snore loudly (louder than talking or can be heard through closed doors)? Tobacco Use History Tobacco Use History - strategy execution consultant: Tobacco Use History - strategy execution consultant Tobacco Use Smoking Status Never smoker 01/08/25 14:53 Hx Tobacco Use No 01/08/25 14:53 Years Smoking Packs Smoked per Day Smoking Cessation Date was within the last 15 years Hx Smoking Cessation Date Hx Smoking Cessation Counseling Hematologic Medial History Hematologic Hx - strategy execution consultant: Hematologic Medical Hx - foster care social worker Hx of Blood Transfusion Yes 01/08/25 14:53 Hx of Transfusion in last 3 No 01/08/25 14:53 Months Date of Last Transfusion (if within last 3 months) Ever experience any problems No 01/08/25 14:53 with transfusion(s)? Specify any problems Hx of Preganancy in last 3 No 01/08/25 14:53 Months Nurse Filling Out Transfusion JZOLLINGE 01/08/25 14:53 & Questions: Date: 01/08/25 01/08/25 14:53 Time: 14:56 01/08/25 14:53 Patient unable to answer at this time (ie. 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 Blood in urine Rectal bleeding Diarrhea due to drug Prerenal azotemia Dysuria Anemia due to chronic blood loss Gastric reflux Acid reflux Edema of both lower legs Mass in the abdomen Hypomagnesemia Diarrhea Encounter for chemotherapy management Abnormal CT of the abdomen Port-A-Cath in place Anxiety Bladder disease History of diverticulitis History of echocardiogram Cancer of right female breast Encounter for education Wears hearing aid Wears glasses Wears contact lenses Post-menopausal Cancer Back pain Migraine headache Non-smoker History of edema History of stress test Cardiology follow-up encounter Hx of vaginal delivery Mitral valve prolapse Chronic headaches Back problem Anemia Arthritis Hypertension Home Medications ?Medication ?Instructions ?Recorded ?Last Taken ?Type vibegron 75 mg tablet (Gemtesa) 75 mg PO DAILY 3 01/12/25 History ibuprofen 200 mg capsule 800 mg PO Q6H PRN pain 03/19 Unknown History loperamide 2 mg capsule (Imodium 2 mg PO Q6H PRN loose stool 04/03/24 08/11/24 History A-D) acetaminophen 500 mg tablet 500 mg PO Q6H PRN pain Unknown History (Tylenol Extra Strength) ondansetron 8 mg disintegrating 8 mg PO Q8H PRN nausea and 08/17/24 Unknown Rx tablet vomiting #20 tabs potassium chloride 20 mEq 20 meq PO BID #60 tabs 11/10 Unknown Rx tablet,extended release(part/cryst) lisinopril 40 mg tablet 40 mg PO DAILY #90 tabs 05/1401/12/25 07:00 Rx magnesium oxide 400 mg PO TID #90 caps 12/08 Unknown Rx hydrocortisone acetate 25 mg 25 mg [place] QHS #12 ea 12/28 Unknown Rx rectal suppository (Anusol-HC) Allergy/AdvReac Type Severity Reaction Status Date / Time No Known Allergies Allergy Verified 01/12/25 13:18 Family History Mother Diabetes Hypertension Osteoarthritis Colon cancer Grandfather Heart disease Sister Lupus Fibromyalgia Sister , December 2022 from post op PE Endometrial cancer Father Cancer prostate. Surgical History H/O right mastectomy History of lymph node dissection of right axilla S/P right mastectomy History of renal stent Hx of cystoscopy Hx of surgical procedure Status post total hysterectomy and bilateral salpingo-oophorectomy S/P cystoscopy Hx of right breast biopsy Hx of colonoscopy History of orthopedic surgery History of excision of pilonidal cyst Social History Smoking Status: Never smoker alcohol intake: never substance use type: does not use caffeine: Yes what type of physical activity do you participate in: walking frequency: 3-4 times per week seatbelt use: always do you feel safe at home: Yes additional social history: -Dony Review of Systems (Anesthesia) ROS Narrative System reviewed and no additional complaints, except as documented.
--- NOTE | 2025-01-12 14:38 | PCM.HP.STD ---
HPI - General General Date of Admission: 01/12/25 Date of Service: 01/12/25 Chief Complaint: lower GI bleeding HPI Narrative KATHY URIAS, is a 69 F who presents Chief Complaint: rectal bleeding Details: KATHY URIAS is a 69 F who presents to the office today for LABS 12/17/2024 HGB 11.2 11/26/2024 HGB 10.7 10/15/2024 HGB 10.4 08/24/2024 HGB 9.2 PET 09/15/2024 1. NEGATIVE EXAMINATION. There is no definitive scintigraphic evidence of residual-viable neoplasm. 2. The linear increase in tracer concentration defined in the right anterior chest wall does not fulfill quantitative criteria for neoplasia. 3. Enhanced uptake noted in the right axilla does not fulfill quantitative criteria for malignant transformation. EGD 07/01/2024 ([facility]) - chronic gastritis, neg. H. pylori - Z-line variable. - Erythematous mucosa in the prepyloric region of the stomach. Biopsied. - Erythematous duodenopathy. - Use sucralfate tablets 1 gram PO QID for 2 COLON 07/01/2024 ([facility]) rectal biopsy negative for colitis - Hemorrhoids found on perianal exam. - Non-bleeding external and internal hemorrhoids. - Erythematous mucosa in the rectum. Biopsied. - The examination was otherwise normal. Her family history is notable for a sister with endometrial cancer, brother with prostate cancer and father with colon cancer. ONCOLOGY 12/17/2024 #1- Right breast cancer: Pathologic stage post neoadjuvant therapy II (T1c, N1, M0) 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 Tumor in the breast is ER positive (over 95%, strong) NH positive (64%, moderate to strong) and HER2 overexpressed 3+.Ki-67 is positive low less than 5%. Whereas that in the pathologically confident metastasis in the right axillary lymph node is ER positive, NH positive and HER2/krysta 2+. Genetic testing (at time of diagnosis was endometrium cancer) was done in 2022 and showed no known deleterious mutation. Received neoadjuvant for 6 cycles of TCHP February?June. Main toxicity reported during neoadjuvant therapy was manageable grade 1 diarrhea and electrolyte disturbances (hypokalemia partly due to prior diuretic use hypophosphatemia and hypomagnesemia), bone marrow toxicity with severe transfusion requiring anemia. Then underwent mastectomy with sentinel lymph node biopsy with residual cancer was found and minimal response to neoadjuvant therapy noted. Started postoperative Kadcyla (Ado-trastuzumab) September 2024. #2- History of endometrium cancer and incidental finding of retroperitoneal cystic mass the nature of which cannot be determined by imaging that included 2 CAT scans and MRI. Patient's past medical history is notable for history of endometrial cancer, stage II (T2, N0, M0) status post robotic total hysterectomy with bilateral salpingo-oophorectomy followed by adjuvant radiation therapy June - July 2023. On March 12, 2024 patient underwent cystoscopy, left retrograde pyelogram, left ureteroscopy with left ureteral stent insertion. April 08, [address]-guided biopsy of the mass no malignancy identified but necrotic tissue. June 2024 after the conclusion of neoadjuvant systemic therapy for breast cancer CT scan of the abdomen and pelvis reported a cystic lesion in the retroperitoneal that is decreasing in size. July DRUG ABUSE PROGRAM COORDINATOR oncology follow-up (Dr. Giles): Impression residual cystic lesion in the left periaortic area is most likely a benign lymphoid cyst with very mild residual hydronephrosis. ----Anemia-multifactorial including anemia of cancer and chemotherapy, no evidence for residual iron and B12 deficiency. - she reports a history of hemorrhoids - bleeding is BRB and now passing clots - the bleeding has been more consistent the past 2 weeks - had a hard stool 3 weeks ago - denies any rectal pain - she is experiencing lower abdominal discomfort, like a menstrual cramp - denies any change in discomfort with a BM - stools have been very soft or formed, 3-4 stools daily this is an increase from her typical 2x a day - last week the bleeding was every day - no bleeding today - has had episodes that she is passing just blood - she reports chronic nausea secondary to chemo - denies any HB or emesis - denies any upper abdominal pain - very rare use of NSAIDS - Chemo every 3 weeks - next treatment due 01/07 [facility] Medical History 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 Blood in urine Rectal bleeding Diarrhea due to drug Prerenal azotemia Dysuria Anemia due to chronic blood loss Gastric reflux Acid reflux Edema of both lower legs Mass in the abdomen Hypomagnesemia Diarrhea Encounter for chemotherapy management Abnormal CT of the abdomen Port-A-Cath in place Anxiety Bladder disease History of diverticulitis History of echocardiogram Cancer of right female breast Encounter for education Wears hearing aid Wears glasses Wears contact lenses Post-menopausal Cancer Back pain Migraine headache Non-smoker History of edema History of stress test Cardiology follow-up encounter Hx of vaginal delivery Mitral valve prolapse Chronic headaches Back problem Anemia Arthritis Hypertension Home Medications ?Medication ?Instructions ?Recorded ?Last Taken ?Type vibegron 75 mg tablet (Gemtesa) 75 mg PO DAILY 03/13/23 01/12/25 History ibuprofen 200 mg capsule 800 mg PO Q6H PRN pain 03/19/24 Unknown History loperamide 2 mg capsule (Imodium 2 mg PO Q6H PRN loose stool 04/03/24 08/11/24 History A-D) acetaminophen 500 mg tablet 500 mg PO Q6H PRN pain 08/13/24 Unknown History (Tylenol Extra Strength) ondansetron 8 mg disintegrating 8 mg PO Q8H PRN nausea and 08/17/24 Unknown Rx tablet vomiting #20 tabs potassium chloride 20 mEq 20 meq PO BID #60 tabs 11/10/24 Unknown Rx tablet,extended release(part/cryst) lisinopril 40 mg tablet 40 mg PO DAILY #90 tabs 11/27/24 01/12/25 07:00 Rx magnesium oxide 400 mg PO TID #90 caps 12/08/24 Unknown Rx hydrocortisone acetate 25 mg 25 mg [place] QHS #12 ea 12/28/24 Unknown Rx rectal suppository (Anusol-HC) Allergy/AdvReac Type Severity Reaction Status Date / Time No Known Allergies Allergy Verified 01/12/25 13:18 Family History Mother Diabetes Hypertension Osteoarthritis Colon cancer Grandfather Heart disease Sister Lupus Fibromyalgia Sister , December 2022 from post op PE Endometrial cancer Father Cancer prostate. Surgical History H/O right mastectomy History of lymph node dissection of right axilla S/P right mastectomy History of renal stent Hx of cystoscopy Hx of surgical procedure Status post total hysterectomy and bilateral salpingo-oophorectomy S/P cystoscopy Hx of right breast biopsy Hx of colonoscopy History of orthopedic surgery History of excision of pilonidal cyst Social History Smoking Status: Never smoker alcohol intake: never substance use type: does not use caffeine: Yes what type of physical activity do you participate in: walking frequency: 3-4 times per week seatbelt use: always do you feel safe at home: Yes additional social history: -Dony ROS Constitutional Constitutional: Denies fatigue, fever(s), poor appetite, weight gain or weight loss Gastrointestinal Gastrointestinal: Denies belching, bloating, change in bowel habits, change in stool character, chewing difficulty, coffee ground emesis, constipation, cramping, diarrhea, dyspepsia, dysphagia, early satiety, excessive flatus, fecal incontinence, heartburn, hematemesis, hematochezia, hemorrhoids, loose stools, melena, nausea, odynophagia, rectal bleeding, tenesmus, vomiting or weight changes Vital Signs Vital Signs Vital Signs: 01/12/25 13:17 01/12/25 13:17 01/12/25 13:53 Temperature 98.6 F 98.6 F Temperature Source Temporal Pulse Rate 103 H 103 H Respiratory Rate 16 16 Respiratory Pattern Normal Blood Pressure 172/89 H 172/89 H Blood Pressure Mean 116 Blood Pressure Source Monitor Blood Pressure Position Semi-Fowlers Blood Pressure Location Left Arm Pulse Ox 98 98 Oxygen Delivery Method Room Air Room Air Weight Weight: 160 lb 14.999 oz Body Mass Index (BMI) 25.9 Physical Exam Const alert, oriented x3, no apparent distress and healthy appearing General Appearance: cooperative GI normal to inspection, nondistended, normoactive bowel sounds, soft to palpation, non-tender and non-distended Percussion: normal to percussion Rectal Exam: deferred Assessment & Plan Assessment/Plan (1) BRBPR (bright red blood per rectum): PLAN: Assessment and Plan Assessment and Plan (1) Rectal bleeding: Status: Acute (2) Abdominal pain: Status: Acute (3) FH: colon cancer: Status: Chronic Comment: M dx age 59 (4) Anemia: Status: Chronic (5) Hemorrhoid: Status: Acute Orders: Orders Colonoscopy Today K62.5 - Hemorrhage of anus and rectum, R10.33 - Periumbilical pain Medications: New hydrocortisone acetate (Anusol-HC) Sitz bath prior to insertion 25 mg NH QHS 12 ea 0RF Plan 69y/o female presents for consultation with complaints of rectal bleeding. She reports she is experiencing BRBPR and blood clots QD-QOD for the past 2-3 weeks. She reports she typically has diarrhea or soft stools, but did have one hard stool three weeks ago. She denies any rectal pain but is experiencing lower abdominal discomfort. Frequency of stools has increased form 2-4x a day. Colonoscopy revealed internal and external hemorrhoids June 2024. She is currently receiving chemo every 3 weeks for treatment of breast cancer. Labs completed one week ago showed an improvement in HGB. Rectal exam reveals a Grade IV hemorrhoid with ulceration. I recommend sitz baths and anusol suppositories for the next 12 days. I have scheduled her for a Sigmoidoscopy to evaluate for any other causes of bleeding. She will keep us apprised of her symptoms. Patient Instructions: Sitz bath and Anusol supp. x12 days Contact office with any increase in bleeding or pain Labs as planned on 01/07/2025 with oncology
--- NOTE | 2025-01-12 15:08 | PCM.POST.ANE ---
Anesthesia: Postop Eval I Current Vital Signs Temperature: 97.5 F Pulse Rate: 97 Blood Pressure: 133/67 Respiratory Rate: 16 Pulse Ox: 97 Oxygen Delivery Method: Room Air Assessment Airway patent: Yes Spontaneous unlabored respirations: Yes Mental status: Awake and Calm nausea: No Vomiting: No Anesthesia Complication: No Fluid Hydration Crystalloid volume administer (ml): 30 Total IV fluid infused: 30 Progress Note Anesthesia document: Postop Eval 1 completed: Yes
--- NOTE | 2025-01-12 15:09 | OP.FLEXSIG_ITS ---
Patient Name: Lyssa Vasquez Procedure Date: 01/12/2025 2:42 PM Date of : 1955 Age: 69 Procedure: Flexible Sigmoidoscopy Indications: Hematochezia Providers: Patrick Peres DO Referring MD: Patrick Peres DO Medicines: Monitored Anesthesia Care, None Patient Profile: This is a 69 year old female. Refer to note in patient chart for documentation of history and physical. Last Colonoscopy: 6 months ago. Complications: No immediate complications. Procedure: Pre-Anesthesia Assessment: - Prior to the procedure, a History and Physical was performed, and patient medications and allergies were reviewed. The patient is competent. The risks and benefits of the procedure and the sedation options and risks were discussed with the patient. All questions were answered and informed consent was obtained. Patient identification and proposed procedure were verified by the physician in the pre-procedure area. Mental Status Examination: alert and oriented. Airway Examination: normal oropharyngeal airway and neck mobility. Respiratory Examination: clear to auscultation. CV Examination: normal. ASA Grade Assessment: II - A patient with mild systemic disease. After reviewing the risks and benefits, the patient was deemed in satisfactory condition to undergo the procedure. The anesthesia plan was to use monitored anesthesia care (MAC). Immediately prior to administration of medications, the patient was re-assessed for adequacy to receive sedatives. The heart rate, respiratory rate, oxygen saturations, blood pressure, adequacy of pulmonary ventilation, and response to care were monitored throughout the procedure. The physical status of the patient was re-assessed after the procedure. After obtaining informed consent, the endoscope was passed under direct vision. Throughout the procedure, the patient's blood pressure, pulse, and oxygen saturations were monitored continuously. The Endoscope was introduced through the anus and advanced to the descending colon. The flexible sigmoidoscopy was accomplished without difficulty. The patient tolerated the procedure well. The quality of the bowel preparation was poor. Scope In: 2:56:52 PM Scope Out: 3:01:12 PM Total Procedure Duration Time 0 hours 4 minutes 20 seconds Findings: Hemorrhoids were found on perianal exam. Multiple large diffuse angiodysplastic lesions with bleeding were found in the rectum. Coagulation for hemostasis using argon plasma at 0.3 liters/minute and 20 cody was successful. Estimated blood loss was minimal. Impression: - Preparation of the colon was poor. - Hemorrhoids found on perianal exam. - Multiple bleeding colonic angiodysplastic lesions. Treated with argon plasma coagulation (APC). - No specimens collected. Recommendation: - Use original regular Metamucil one teaspoon PO daily. Procedure Code(s): --- Professional --- 28180, Sigmoidoscopy, flexible; with control of bleeding, any method CPT copyright 2021 [employer]. All rights reserved. The codes documented in this report are preliminary and upon water treatment plant engineer review may be revised to meet current compliance requirements. Patrick Peres DO 01/12/2025 3:08:38 PM This report has been signed electronically. Number of Addenda: 0 Note Initiated On: 01/12/2025 2:42 PM
--- NOTE | 2025-01-12 15:09 | OP.CCLET_ITS ---
01/12/2025 Lex Madsen Re : Flexible Sigmoidoscopy procedure for Lyssa Vasquez Dear Dr. Madsen This procedure was performed on Sunday, January 12, 2025. My impressions and recommendations are as follows: Impressions : - Preparation of the colon was poor. - Hemorrhoids found on perianal exam. - Multiple bleeding colonic angiodysplastic lesions. Treated with argon plasma coagulation (APC). - No specimens collected. Recommendations : - Use original regular Metamucil one teaspoon PO daily. My findings are described in the full procedure note, which is enclosed. If I can be of further assistance, please feel free to contact me at . Sincerely, Patrick Friend, 01/12/2025 3:08:38 PM This report has been signed electronically.
[2025-01-12] MEDS: 0.9% Saline Lock 10 ML Syringe IV (15:24)
--- NOTE | 2025-01-12 19:35 | PCM.POSTANE2 ---
Anesthesia Postop Eval I Sum Postop Eval Completion status Anesthesia document: Postop Eval 1 completed: Yes Anesthesia Postop Eval I Summary Anesthesia Postop Eval I Summary: Anesthesia Postop Eval I: Assessment Summary Airway patent Yes 01/12/25 15:09 [email or web address] Spontaneous unlabored Yes 01/12/25 15:09 [email or web address] respirations Mental status Awake,Calm 01/12/25 15:09 [email or web address] nausea No 01/12/25 15:09 [email or web address] Vomiting No 01/12/25 15:09 [email or web address] Anesthesia Postop Eval I: Fluid Summary Crystalloid volume administer 30 01/12/25 15:09 [email or web address] (ml) Colloids volume administered ( ml) Blood Product volume administered (ml) Total IV fluid infused 30 01/12/25 15:09 [email or web address] Anesthesia Postop Eval I: Summary Notes Anesthesia Complication No 01/12/25 15:09 [email or web address] Anesthesia Complication Comment: Post-operative progress note Anesthesia: Postop Eval II Evaluation Mental status: Awake and Calm Pain Level: 0 nausea: No Vomiting: No Complications Anesthesia Complication: No
== END 2025-01-12 15:50 | disposition home or self-care (01) ==
LOC: EN 12:54 → AC 12:55
PROVIDERS: PCP Family Medicine; Referring Provider Family Medicine; Visit Provider Internal Medicine Gastroenterology
PROC: 0DJD8ZZ Inspection of Lower Intestinal Tract, Via Natural or Artificial Opening Endoscopic (ICD-10-PCS; CPT 45330; principal; 2025-01-12 13:55)
DX: K55.21 Angiodysplasia of colon with hemorrhage (principal); C50.411 Malignant neoplasm of upper-outer quadrant of right female breast; K64.3 Fourth degree hemorrhoids; D63.0 Anemia in neoplastic disease; D64.81 Anemia due to antineoplastic chemotherapy; Z85.42 Personal history of malignant neoplasm of other parts of uterus; K21.9 Gastro-esophageal reflux disease without esophagitis; I10 Essential (primary) hypertension; I34.1 Nonrheumatic mitral (valve) prolapse; F41.9 Anxiety disorder, unspecified; E83.42 Hypomagnesemia; T45.1X5A Adverse effect of antineoplastic and immunosuppressive drugs, initial encounter; Z87.19 Personal history of other diseases of the digestive system; Z79.899 Other long term (current) drug therapy
CPT/HCPCS: 45334; C1889; A4216; J2405

== ENCOUNTER → 2025-02-02 | Outpatient (CLI) | payer MEDICARE, SELFPAY ==
[2025-02-02 11:46] LABS: Absolute Neutrophil Count 3.1 X10^3/uL (2.0-7.7); Basophil# 0.03 X10^3/uL; Basophil% 0.7 % (0-1); Eosinophil# 0.08 X10^3/uL; Hematocrit 33.7 % (37-47); Hemoglobin 11.3 g/dL (12.0-15.0); Lymphocyte % 9.8 % (19-41); Mean Corp Hgb Conc 33.5 g/dL (32-36); Mean Corpuscular Hgb 31.8 pg (27.0-32.0); Mean Corpuscular Volume 94.9 fL (81-99); Mean Platelet Vol. 9.1 fl (6.2-12.0); Monocyte# 0.48 X10^3/uL; Monocyte% 11.7 % (0-10); NRBC Flagged by Analyzer 0 % (0-5); Neutrophil # 3.09 X10^3/uL (2.7-7.7); Neutrophil % 75.3 % (47-70); POSITIVE DIFFERENTIAL YES; Platelet Count 136 K/mm3 (150-450); RBC Distribution Width CV 15.7 % (11.6-14.6); RBC Distribution Width SD 54.4 fl (35.1-43.9); Red Blood Count 3.55 M/mm3 (4.2-5.4); White Blood Count 4.1 K/mm3 (4.4-11.0)
== END | disposition home or self-care (01) ==
LOC: LAB 11:09
PROVIDERS: PCP Family Medicine; Referring Provider Nurse Practitioner Acute Care; Visit Provider Nurse Practitioner Acute Care
DX: D64.9 Anemia, unspecified (principal)
CPT/HCPCS: 36415; 85025

== ENCOUNTER → 2025-02-12 | Outpatient (CLI) | payer MEDICARE, SELFPAY ==
--- NOTE | 2025-02-12 08:19 | CT_ITS ---
PROCEDURE: CT CHEST, ABD, PEL W/CONTRAST 02/12/2025 REASON FOR EXAM: SURVEILLANCE BREAST/ENDOMETRIAL CA TECHNIQUE: Chest, abdomen and pelvis CT with intravenous contrast. Coronal and Sagittal reconstruction series were provided. One or more dose reduction techniques were used (e.g., Automated exposure control, adjustment of the mA and/or kV according to patient size, use of iterative reconstruction technique. PATIENT PREPARATION: Per protocol ORAL CONTRAST TYPE: None. CONTRAST: Isovue-300 VOLUME: 100mL RADIATION DOSE SUMMARY: CTDlvol: 12 mGy DLP: 1156.44 mGycm COMPARISON: Comparison made with prior CT scan of the abdomen and pelvis dated September 04, 2024. FINDINGS: CT CHEST: Hardware: A left-sided port a catheter is seen with the tip in the superior vena cava. A right-sided breast implant is seen. Right mastectomy. Lymph nodes: No significant mediastinal or hilar lymphadenopathy seen. Heart and Vasculature: No coronary artery calcification. Lungs and Airways: Increased linear markings with areas of confluence in the anterior aspect of the right upper lobe suggestive of post radiation fibrosis/pneumonitis. The changes extend into the anterior aspect of the right middle lobe. There is a 5.75 mm nodule in the anterior aspect of the right lower lobe as seen on axial image number 83 this most likely represents focal area of scarring. Pleura: No evidence of pleural effusion. Bones: Degenerative changes of the thoracic spine. CT ABDOMEN/PELVIS: Liver: Diffuse fatty infiltration. Gallbladder: Unremarkable. Spleen: Normal size. Pancreas: Diffuse fatty atrophy. Adrenals: Unremarkable Kidneys: 2.3 cm cyst in the upper portion of the left kidney. Left-sided hydronephrosis and left hydroureter. Bladder: Mild degree of bladder wall thickening although the bladder is not completely distended. Reproductive Organs: Prior hysterectomy. Adnexal regions are unremarkable. Bowel: Colonic diverticulosis without diverticulitis. Circumferential narrowing and thickening of the rectum. Clinical correlation recommended. Appendix: The appendix is not identified. There is no inflammatory process identified in the right lower quadrant to suggest appendicitis. Lymph nodes: Unremarkable. Vasculature: Mild diffuse atherosclerotic calcifications are noted. Peritoneum / Retroperitoneum: The previously seen soft tissue density in the left para-aortic region at the level of the L4 vertebrae as almost completely resolved. Increased soft tissue density in the presacral space most likely secondary to prior radiation. Small umbilical hernia containing fat. Bones: Degenerative changes of the spine. CT/CT Chest, Abd, Pel w/Contrast IMPRESSION: Further decrease in size with almost complete resolution of the previously seen left retroperitoneal soft tissue density. Stable left hydronephrosis and left hydroureter. Circumferential wall thickening of the rectum. Reading Location: [place] [id number]
--- NOTE | 2025-02-12 08:19 | ECHOLONC_ITS ---
Reason For Study Reason For Study: OTHER [employer] Procedure This was a limited 2D transthoracic echocardiogram. Myocardial strain analysis was performed in this exam to aid in the assessment of cardiac function. Exam performed in department. Left Ventricle Normal LV size. Left ventricular systolic function is normal. The left ventricular ejection fraction is 60 %. No regional wall motion abnormalities noted. Right Ventricle Normal RV size. Normal systolic function. Atria Normal left atrium. Normal right atrium. Mitral Valve Normal mitral valve. Tricuspid Valve Normal tricuspid valve. Aortic Valve Trisinus/trileaflet aortic valve. Great Vessels Normal aortic root. Pericardium/Pleural No pericardial effusion. MMode/2D Measurements & Calculations LVIDd: 4.1 cm IVSd: 0.99 cm LVOT diam: 2.0 cm LVIDs: 3.0 cm LVPWd: 1.0 cm LVOT area: 3.0 cm2 FS: 27.5 % LAV(MOD-sp2): 38.7 ml LVAd ap4: 23.1 cm2 SV(MOD-sp4): 35.3 ml LVLd ap4: 7.0 cm SI(MOD-sp4): 19.4 ml/m2 EDV(MOD-sp4): 61.9 ml EDV(sp4-el): 64.9 ml LVAs ap4: 13.2 cm2 LVLs ap4: 5.8 cm ESV(MOD-sp4): 26.6 ml ESV(sp4-el): 25.4 ml EF(MOD-sp4): 57.0 % EF(sp4-el): 60.8 % SV(sp4-el): 39.5 ml LA dimension(2D): 3.0 cm LA A4 area: 18.9 cm2 RA A4 area: 12.5 cm2 ECHO/ONC Echo, Limited Study Interpretation Summary Normal LV size. Left ventricular systolic function is normal. The left ventricular ejection fraction is 60 %. The global longitudinal strain is normal. The global longitudinal strain = -19 % (normal). Ordering Physician: Alley Walden Referring Physician: Alley Walden Performed By: Hattie Pino RCS
[2025-02-12] MEDS: 0.9% Saline Lock 10 ML Syringe IV (08:44)
== END | disposition home or self-care (01) ==
LOC: CVS 08:19
PROVIDERS: PCP Family Medicine; Referring Provider Nurse Practitioner Family; Visit Provider Nurse Practitioner Family
DX: C50.411 Malignant neoplasm of upper-outer quadrant of right female breast (principal); C54.1 Malignant neoplasm of endometrium; Z79.899 Other long term (current) drug therapy
CPT/HCPCS: 71260; 74177; 93308; 93356; Q9967

== ENCOUNTER 2025-03-02 13:00 | Outpatient (RCR) | payer MEDICARE, SELFPAY ==
--- NOTE | 2025-02-05 11:31 | HP.PTEVAL ---
Patient's Visit Information Visit Information Visit Information: KATHY URIAS is a 69 year old F referred to Physical Therapy by SKYLA Kendrick with a diagnosis of Generalized weakness/Cancer of R breast. Date of Evaluation: 02/05/25 Physical Therapist: YULY Penn Visit Plan Frequency: 2x /Week Duration: 2 Months Plan: 2X/week for 8 weeks for balance training (varying surfaces, head turns, curb steps), steps, gait training, LE strength with HEP and possible gym routine to take with her to [facility] to do there. Subjective Subjective: Pt has had CA the last 2 years (started with endometrial). Had hysterotomy, Chemo and radiation and then 6 mo later she had breast Caner (radiation is done and has chemo every 3 weeks) through . She is just finding effects of all the side effects of the chemo. Her Hemoglobin is staying up for now but she noticing weakness. Her liver enzymes are up so she has a CATSCAN next Saturday to see how everything is. She has an echo scheduled every 3 months. She is feeling pretty good but she does have fatigue and weakness. 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 She has been out walking a mile now and yesterday she could not walk to the mailbox. She is having more of a balance issue. Every now or then she has a balance issue and she always wants to go to the right. She has not had any falls. Stairs: she does have a railing and usually goes alternating but some days she is step two pattern. Pt wants to be able to be indep with walking without holding onto her . She does struggle with getting in and out of a vehicle lifting L leg. She did have R Mastectomy Pain Abdominal Cramping: Pain Intensity (Out of 10): 2 Objective Objective: Gait: walks with narrow HANH with occ veering (especially to the R) with increase guarding with gait and especially with head turns Sit to stand: Uses UE support to stand LE MMT: R hip flex 10.6 and L 9.6 R knee ext 14.3 and L 8.1 R knee flex 7.4 and L 7.3 FGA: 13 CATSIB: 110/120 Stairs: up and down recip with 1 hand rail but really has to use the rail to pull self up and drive through her legs Balance/Special Test Scores Functional Gait Assessment Score: 13 % Disability: 56.6700 CATSIB Score (Max score 120 seconds): 110 Lower Extremity Functional Score: 49 Goals Goal 1:: I HEP Goal Time Frame: 6-8 Weeks Goal 2:: Be able to walk 100 feet with upright posture with no veering Goal Time Frame: 6-8 Weeks Goal 3:: Be able to go up and down stairs recip with 1 hand rail without having to pull self up Goal Time Frame: 6-8 Weeks Goal 4:: Increase balance (FGA score was 13 at eval) Goal Time Frame: 6-8 Weeks Goal 5:: Be able to walk with head turns without veering Goal Time Frame: 6-8 Weeks Goal 6:: Be able to for walks comfortably without having to bring her with her Goal Time Frame: 6-8 Weeks Rehabilitation Potential Rehabilitation Potential: Good Anticipated Interventions Patient/Client Instruction: Educate patient on: Condition and Plan of Care For the Purpose of:: To decrease pain, To increase ROM, To improve nutrient delivery to tissue, To improve muscle performance and motor function, To improve ability to perform ADL's, To increase tolerance to activity/condition/position, To improve performance and independence with ADL's, To decrease level of supervision to perform tasks, To improve ability of physical actions for home/community/work/leisure, To improve gait and locomotor functions, To improve endurance, To improve balance and To improve safety with gait Therapeutic Exercise to Include: Strength training, Endurance training, Balance training, Coordination, Postural training, Gait and locomotor training, Neuromotor development, Active ROM and Dynamic Lumbar Stabilization For the Purpose of:: To decrease pain, To increase ROM, To improve nutrient delivery to tissue, To improve muscle performance and motor function, To improve ability to perform ADL's, To increase tolerance to activity/condition/position, To improve gait and locomotor functions, To improve health of tissue, To decrease soft tissue restriction, To improve endurance, To improve balance and To improve safety with gait Functional Training to Include: Gait training For the Purpose of:: To improve gait and locomotor functions and To improve safety with gait Text: Thank you for the opportunity to evaluate your patient. For Medicare and Medicare HMO plans, please review the plan of care and approve it. It will need to be FAXED BACK to us at [phone] for Medicare purposes. For Medicare only, by signing this I certify the plan of care. Please let me know if there are questions or concerns regarding this plan of care. Physician Signature: Date:
--- NOTE | 2025-03-02 13:36 | HP.PTDCSUM_ITS ---
Discharge Summary D/C summary: It has been my pleasure to treat KATHY URIAS referred by SKYLA Kendrick, with the diagnosis of Generalized weakness/Cancer of R breast for a total of 8 visit(s). Discharge Date: 03/02/25 Please see the following information for a summary of their discharge status. Subjective Subjective: She can tell when her neuropathy is acting up and knows to be extra cautious those days. She feels now that she can walk up the street by herself and less reliant her . She feels stronger and more endurance. She does not lose her balance as much. Pain Abdominal Cramping: Pain Intensity (Out of 10): 1 Overall Improvement % Improvement: 90 Objective Objective/Function: Gait: Walks with narrow base of support and occ veering but slight Stairs: up and down stairs recip with 1 hand rail. She did catch her toe ascending the step but did catch herself. She did not have to pull herself up with her arms FGA: 23 Gait with head turning: Slight off at times with horizontal head turns but no off balance with vertical/horizontal Goals Goal 1:: I HEP Goal Progress: Goal Met Goal 2:: Be able to walk 100 feet with upright posture with no veering Goal Progress: Goal Met Goal 3:: Be able to go up and down stairs recip with 1 hand rail without having to pull self up Goal Progress: Goal Met Goal 4:: Increase balance (FGA score was 13 at eval) Goal Progress: Goal Met Goal 5:: Be able to walk with head turns without veering Goal Progress: Goal Met Goal 6:: Be able to for walks comfortably without having to bring her with her Goal Progress: Goal Met Plan Plan: 2X/week for 8 weeks for balance training (varying surfaces, head turns, curb steps), steps, gait training, LE strength with HEP and possible gym routine to take with her to [facility] to do there. D/C Information Discharge Comments: DC PT to HEP/indep gym d/c sentence: If there are questions or concerns regarding this patient's physical therapy, please feel free to call me at [phone]. Thank you for the referral of this patient. Sincerely, Roseann Tadeo, MPT Balance/Gait/Functional tests Balance/Special Test Scores Functional Gait Assessment Score: 23 % Disability: 23.3400 CATSIB Score (Max score 120 seconds): 110 Lower Extremity Functional Score: 70 Improvement % Improvement: 90
== END 2025-03-02 19:00 | disposition home or self-care (01) ==
LOC: PT 13:00
PROVIDERS: PCP Family Medicine; Referring Provider Nurse Practitioner Family; Visit Provider Nurse Practitioner Family
DX: C50.911 Malignant neoplasm of unspecified site of right female breast (principal); Z17.0 Estrogen receptor positive status [ER+]; R53.1 Weakness
CPT/HCPCS: 97110; 97161; 97530

== ENCOUNTER → 2025-05-10 | Outpatient (CLI) | payer MEDICARE, SELFPAY ==
--- NOTE | 2025-05-10 10:53 | ECHODONC_ITS ---
Reason For Study Reason For Study: CARDIO [employer]UG Procedure This was a 2D Doppler, Color Flow transthoracic echocardiogram. Myocardial strain analysis was performed in this exam to aid in the assessment of cardiac function. Exam performed in department. Left Ventricle Normal LV size. The left ventricular ejection fraction is 60 %. No regional wall motion abnormalities noted. Right Ventricle Normal RV size. Normal systolic function. Atria Normal left atrium. Normal right atrium. Mitral Valve Bileaflet diffuse mitral valve thickening. Equivocal mitral valve prolapse. Tricuspid Valve Normal tricuspid valve. Aortic Valve Trisinus/trileaflet aortic valve. Pulmonic Valve Normal pulmonic valve. Great Vessels Normal aortic root. The pulmonary artery is normal size. Inferior vena cava collapse with respiration. Pericardium/Pleural No pericardial effusion. MMode/2D Measurements & Calculations LVIDd: 4.3 cm IVSd: 0.96 cm LVOT diam: 2.0 cm LVIDs: 2.9 cm LVPWd: 1.0 cm LVOT area: 3.1 cm2 RVDd: 3.2 cm FS: 32.7 % Ao root diam: 3.2 cm LAV(MOD-bp): 52.2 ml LVAd ap4: 24.8 cm2 LAV(MOD-bp) Indexed: 28.7 ml/m2 LVLd ap4: 7.4 cm LAV(MOD-sp2): 53.3 ml EDV(MOD-sp4): 69.5 ml LAV(MOD-sp4): 47.4 ml EDV(sp4-el): 70.8 ml LVAs ap4: 14.3 cm2 LVLs ap4: 5.8 cm ESV(MOD-sp4): 30.2 ml ESV(sp4-el): 30.0 ml EF(MOD-sp4): 56.5 % EF(sp4-el): 57.7 % SV(MOD-sp4): 39.3 ml SV(sp4-el): 40.8 ml LA A4 area: 17.7 cm2 SI(MOD-sp4): 21.6 ml/m2 LA dimension(2D): 3.8 cm RA A4 area: 15.7 cm2 Time Measurements MV dec time: 0.24 sec Doppler Measurements & Calculations MV E max bobo: 97.0 cm/sec Lat Peak E' Bobo: 8.3 cm/sec Med Peak E' Bobo: 5.7 cm/sec MV A max bobo: 90.9 cm/sec E/E' lat: 11.7 E/E' med: 17.1 MV E/A: 1.1 MV V2 max: 77.7 cm/sec Ao V2 max: 134.8 cm/sec MV max P.4 mmHg MV dec slope: 439.5 cm/sec2 Ao max P.5 mmHg MV V2 mean: 56.1 cm/sec Ao V2 mean: 101.9 cm/sec MV mean P.3 mmHg Ao mean P.7 mmHg MV V2 VTI: 23.0 cm Ao V2 VTI: 32.0 cm AV (velocity ratio): 1.0 MVA(VTI): 4.3 cm2 CANDACE(I,D): 3.1 cm2 CANDACE(V,D): 3.1 cm2 LV V1 max: 136.3 cm/sec SV(LVOT): 99.4 ml LV V1 max P.4 mmHg LV V1 mean P.5 mmHg LV V1 mean: 100.7 cm/sec LV V1 VTI: 32.0 cm ECHO/ONC Echo Complete Interpretation Summary Normal LV size. The left ventricular ejection fraction is 60 %. Bileaflet diffuse mitral valve thickening. Equivocal mitral valve prolapse. The global longitudinal strain is normal. The global longitudinal strain = -18. 8 % (normal). Ordering Physician: Alley Walden Referring Physician: Alley Walden Performed By: Hattie Pino RCS
== END | disposition home or self-care (01) ==
LOC: CVS 10:53
PROVIDERS: PCP Family Medicine; Referring Provider Nurse Practitioner Family; Visit Provider Nurse Practitioner Family
DX: C50.411 Malignant neoplasm of upper-outer quadrant of right female breast (principal); Z79.899 Other long term (current) drug therapy; Z51.81 Encounter for therapeutic drug level monitoring; Z17.31 Human epidermal growth factor receptor 2 positive status
CPT/HCPCS: 93306; 93356

== ENCOUNTER → 2025-07-26 | Outpatient (CLI) | payer MEDICARE, SELFPAY ==
--- NOTE | 2025-07-26 12:45 | BI_ITS ---
EXAM: SCREEN MAMM (CAD) W/JUAN DANIEL UNI L DATE: 07/26/2025 CLINICAL HISTORY: F, Age 69 y/o , ANNUAL SCREENING Personal history of breast cancer. Prior right mastectomy with radiation and chemotherapy. TECHNIQUE: Procedure Code: [id number] Modality: MG Procedure: SCREEN MAMM (CAD) W/JUAN DANIEL UNI L COMPARISON: Prior exam(s) dated January 30, 2024.. FINDINGS: TISSUE DENSITY: The breasts are heterogeneously dense, which may obscure small masses. Bilateral Breast Mammographic Findings: No significant masses, calcifications or other abnormalities are identified. No suspicious masses, areas of developing architectural distortion, or suspicious calcifications. There has been no significant interval change. BI/SCREEN MAMM (CAD) W/JUAN DANIEL UNI L IMPRESSION: Stable unilateral left mammogram. OVERALL FINAL ASSESSMENT BI-RADS 1: NEGATIVE. RECOMMENDATION: Routine annual follow-up in 1 Year Additional Recommendation none A letter with findings and recommendations will be mailed to the patient. Reading Location: [facility]
--- NOTE | 2025-07-26 12:45 | BI_ITS ---
EXAM: SCREEN MAMM (CAD) W/JUAN DANIEL UNI L DATE: 07/26/2025 CLINICAL HISTORY: F, Age 69 y/o , ANNUAL SCREENING Personal history of breast cancer. Prior right mastectomy with radiation and chemotherapy. TECHNIQUE: Procedure Code: [id number] Modality: MG Procedure: SCREEN MAMM (CAD) W/JUAN DANIEL UNI L COMPARISON: Prior exam(s) dated January 30, 2024.. FINDINGS: TISSUE DENSITY: The breasts are heterogeneously dense, which may obscure small masses. Bilateral Breast Mammographic Findings: No significant masses, calcifications or other abnormalities are identified. No suspicious masses, areas of developing architectural distortion, or suspicious calcifications. There has been no significant interval change. BI/SCREEN MAMM (CAD) W/JUAN DANIEL UNI L IMPRESSION: Stable unilateral left mammogram. OVERALL FINAL ASSESSMENT BI-RADS 1: NEGATIVE. RECOMMENDATION: Routine annual follow-up in 1 Year Additional Recommendation none A letter with findings and recommendations will be mailed to the patient. Reading Location: [facility]
== END | disposition home or self-care (01) ==
LOC: OPBI 12:33
PROVIDERS: PCP Family Medicine; Referring Provider Student in an Organized Health Care Education/Training Program; Visit Provider Student in an Organized Health Care Education/Training Program
DX: Z12.31 Encounter for screening mammogram for malignant neoplasm of breast (principal)
CPT/HCPCS: 77063; 77067

== ENCOUNTER → 2025-07-30 | Outpatient (CLI) | payer MEDICARE, SELFPAY ==
[2025-07-30] MEDS: 0.9 % NaCl (Sterile) Posiflush 10 mL IV (13:45)
[2025-07-30] MEDS: 0.9% Saline Lock 10 ML Syringe IV (14:00)
== END | disposition home or self-care (01) ==
LOC: CT 13:14
PROVIDERS: PCP Family Medicine; Referring Provider Internal Medicine Hematology & Oncology; Visit Provider Internal Medicine Hematology & Oncology
DX: C50.411 Malignant neoplasm of upper-outer quadrant of right female breast (principal); C77.9 Secondary and unspecified malignant neoplasm of lymph node, unspecified; C55 Malignant neoplasm of uterus, part unspecified; Z17.0 Estrogen receptor positive status [ER+]
CPT/HCPCS: 71260; 74177; Q9967; A4216

== ENCOUNTER → 2025-08-04 | Outpatient (CLI) | payer MEDICARE, SELFPAY ==
--- NOTE | 2025-08-04 10:13 | NM_ITS ---
PROCEDURE: BONE SCAN WHOLE BODY 08/04/2025 REASON FOR EXAM: F/U RIGHT BREAST CANCER ENDOMETRIUM CANCER TECHNIQUE: Procedure Code: NMBO Modality: NM Procedure: BONE SCAN WHOLE BODY Delayed anterior and posterior whole-body imaging performed after radiopharmaceutical administration RADIOPHARMACEUTICAL: 26.9 mCi Technetium-99m MDP IV COMPARISON: None. FINDINGS: Degenerative changes are seen involving the spine and acromioclavicular joints. No findings are seen to suggest the presence of osseous metastatic disease. NM/Bone Scan Whole Body IMPRESSION: No scintigraphic evidence of osseous metastatic disease. Reading Location: [id number]
== END | disposition home or self-care (01) ==
LOC: NM 10:10
PROVIDERS: PCP Family Medicine; Referring Provider Internal Medicine Hematology & Oncology; Visit Provider Internal Medicine Hematology & Oncology
DX: C50.411 Malignant neoplasm of upper-outer quadrant of right female breast (principal); C77.9 Secondary and unspecified malignant neoplasm of lymph node, unspecified; C55 Malignant neoplasm of uterus, part unspecified; Z17.0 Estrogen receptor positive status [ER+]
CPT/HCPCS: 78306; A9503

== ENCOUNTER → 2025-08-12 | Outpatient (CLI) | payer MEDICARE, SELFPAY ==
[2025-08-12 12:09] LABS: Anion Gap 10 (5-15); BUN 16 mg/dL (4-19); BUN/Creat Ratio 24.8 RATIO (10-20); Calcium,Total 9.2 mg/dL (7.6-11.0); Carbon Dioxide 28.9 mmol/L (21.0-32.0); Chloride 102 mmol/L (98-108); Glucose 105 mg/dL (70-99); Potassium 3.0 mmol/L (3.3-5.1)
[2025-08-12 19:38] LABS: Xtra Tube EP Lab EXTRA TUBE
== END | disposition home or self-care (01) ==
LOC: PAVLAB 11:17
PROVIDERS: PCP Family Medicine; Referring Provider Nurse Practitioner Family; Visit Provider Nurse Practitioner Family
DX: E87.6 Hypokalemia (principal)
CPT/HCPCS: 36415; 80048

== ENCOUNTER → 2025-08-24 | Outpatient (CLI) | payer MEDICARE, SELFPAY ==
--- NOTE | 2025-08-24 10:46 | BD_ITS ---
PROCEDURE: BD/Dexa Bone Density Study
== END | disposition home or self-care (01) ==
LOC: OPBD 10:41
PROVIDERS: PCP Family Medicine; Referring Provider Internal Medicine Hematology & Oncology; Visit Provider Internal Medicine Hematology & Oncology
DX: C50.911 Malignant neoplasm of unspecified site of right female breast (principal); C77.9 Secondary and unspecified malignant neoplasm of lymph node, unspecified; Z78.0 Asymptomatic menopausal state; Z17.0 Estrogen receptor positive status [ER+]
CPT/HCPCS: 77080

== ENCOUNTER → 2025-09-15 | Outpatient (CLI) | payer MEDICARE, SELFPAY ==
--- NOTE | 2025-09-15 08:55 | VDLE_ITS ---
Reason For Study Reason For Study: Bilateral leg swelling RIGHT LEFT GSV is normal. GSV is normal. CFV is compressible, spontaneous, phasic, competent CFV is compressible, spontaneous, phasic, competent, and demonstrates normal augmentation. and demonstrates normal augmentation. FV is compressible, spontaneous, phasic, competent FV is compressible, spontaneous, phasic, competent and demonstrates normal augmentation. and demonstrates normal augmentation. POP V is compressible, spontaneous, phasic, competent POP V is compressible, spontaneous, phasic, competent and demonstrates normal augmentation. and demonstrates normal augmentation. T/P Trunk is compressible. T/P Trunk is compressible. PTV is compressible. PTV is compressible. RT PerV is compressible. LT PerV is compressible. Procedure This is a venous duplex using B-mode, color flow and spectral Doppler. Exam performed in department. A preliminary report was called and/or faxed to [facility]. VL/Venous Duplex US - Crispin Extrem Interpretation Summary Deep veins of the bilateral lower extremities are patent and compressible segme ntally. There is no evidence of bilateral lower extremity deep vein thrombosis. The bilateral great saphenous veins appea r patent and compressible segmentally. Ordering Physician: Alley Walden Referring Physician: Ryan Madsen M.D. Performed By: Rozina Montana RVT
== END | disposition home or self-care (01) ==
LOC: CVS 08:55
PROVIDERS: PCP Family Medicine; Referring Provider Nurse Practitioner Family; Visit Provider Nurse Practitioner Family
DX: R22.43 Localized swelling, mass and lump, lower limb, bilateral (principal); Z91.89 Other specified personal risk factors, not elsewhere classified
CPT/HCPCS: 93970

== ENCOUNTER 2025-10-13 05:52 | Day surgery (SDC) | payer MEDICARE, SELFPAY ==
--- NOTE | 2025-10-08 17:15 | PAT.ANESEVAL ---
Pre-Assessment Diagnosis/Proposed Procedure Planned Operative Procedure(s): COLONOSCOPY Anesthesia History Anesthesia History - foundry operator: Anesthesia History - foundry operator Hx Hospitalization Yes: RIGHT MASTECTOMY 09-1310/08/25 10:29 Any Problems With Anesthesia No 10/08/25 10:29 Cholinesterase deficiency No 10/08/25 10:29 You/Your Family Experience No 10/08/25 10:29 fever (hyperthermia) with Relationship Recent Exposure to Contagious No 08/11/24 07:14 Disease Does patient have nerve No 10/08/25 10:29 stimulator Patient instructed to have device shut off --Does patient have Pacemaker or ICD? When Was Last Pacemaker Check QUESTION #4 FULL TEXT: You/Your Family Experience fever (hyperthermia) with Anesthesia Last Oral Intake Last Oral intake: Last Oral Intake NPO since Meds taken in AM with sips of water? Meds patient instructed to take am of surgery PONV PONV - foundry operator: PONV - foundry operator Female Yes 10/08/25 10:29 HX of Motion Sickness No 10/08/25 10:29 HX of N/V After Surgery No 10/08/25 10:29 Non-Smoker Yes 10/08/25 10:29 Duration of Surgery greater No 10/08/25 10:29 than 60 minutes Number of Risk Factors 2 10/08/25 10:29 PONV Score Moderate Risk 10/08/25 10:29 Height & Weight Height & Weight: Anesthesia: Height & Weight Height 5 ft 6 in 09/14/25 11:00 Respiratory Assessment Respiratory Assessment - foundry operator: Respiratory Tract Infection Hx - foundry operator Hx Respiratory Tract Infection No 10/08/25 10:29 STOP Sleep Apnea STOP Sleep Apnea - foundry operator: STOP Sleep Apnea - foundry operator Hx Hypertension Yes: ON MEDS 10/08/25 10:29 Hx Sleep Apnea No 10/08/25 10:29 CPAP BIPAP Do you snore loudly (louder No 10/08/25 10:29 than talking or can be heard Do you often feel tired/ No 10/08/25 10:29 fatigued/ sleepy during daytime? Has anyone observed you stop No 10/08/25 10:29 breathing during sleep? STOP Results Negative 10/08/25 10:29 QUESTION #5 FULL TEXT : Do you snore loudly (louder than talking or can be heard through closed doors)? 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 Specify any problems Hx of Preganancy in last 3 No 10/08/25 10:29 Months Nurse Filling Out Transfusion VCHRISTIN 10/08/25 10:29 & Questions: Date: 10/08/25 10/08/25 10:29 Time: 10:31 10/08/25 10:29 Patient unable to answer at this time (ie. confused, unrespo /Reproduction History /Reproductive History - foundry operator: /Reproductive Hx- foundry operator Hx Now No 10/08/25 10:29 Gestational Age (in weeks): EDC: Hx Hx Para Hx Section SAB No 10/08/25 10:29 Does the father of the baby or his family experience fever w Father of the baby Malignant Hypertension history comment [facility] Medical History (Updated 10/08/25 @ 10:29 by Loulou Tom) History of Holter monitoring History of flexible sigmoidoscopy Localized swelling of both lower legs At high risk for deep venous thrombosis HER2-positive carcinoma of breast Generalized weakness 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 Blood in urine Rectal bleeding Diarrhea due to drug Prerenal azotemia Dysuria Anemia due to chronic blood loss Gastric reflux Acid reflux Edema of both lower legs Mass in the abdomen Hypomagnesemia Diarrhea Encounter for chemotherapy management Abnormal CT of the abdomen Port-A-Cath in place Anxiety Bladder disease History of diverticulitis History of echocardiogram Cancer of right female breast Encounter for education Wears hearing aid Wears glasses Wears contact lenses Post-menopausal Cancer Back pain Migraine headache Non-smoker History of edema History of stress test Cardiology follow-up encounter Hx of vaginal delivery Mitral valve prolapse Chronic headaches Back problem Anemia Arthritis Hypertension Home Medications ?Medication ?Instructions ?Recorded ?Last Taken ?Type vibegron 75 mg tablet (Gemtesa) 75 mg PO DAILY 03/13/23 01/12/25 History acetaminophen 500 mg tablet 500 mg PO Q6H PRN pain 08/13/24 Unknown History (Tylenol Extra Strength) amlodipine 5 mg tablet 5 mg PO QDAY #90 tabs 07/30/25 Unknown Rx potassium chloride 20 mEq 20 meq PO BID #60 tabs 08/12/25 Unknown Rx tablet,extended release(part/cryst) cholecalciferol (vitamin D3) 25 25 mcg PO QDAY 09/10/25 Unknown History mcg (1,000 unit) capsule omega 9-vbl-rue-fish oil 300 1 cap PO QDAY 09/10/25 Unknown History mg-1,000 mg capsule (Fish Oil) Diltiazem 10mg/Lidocaine 50mg 1 supp TX QDAY hemorrhoids #30 supp 09/14/25 10/08/25 Rx Suppository 30 supp suppository spironolactone 25 mg tablet 25 mg PO DAILY #90 tabs 09/27/25 Unknown Rx anastrozole 1 mg tablet 1 mg PO DAILY 10/08/25 Unknown History Allergy/AdvReac Type Severity Reaction Status Date / Time No Known Allergies Allergy Verified 10/08/25 10:22 Family History Mother Diabetes Hypertension Osteoarthritis Colon cancer Grandfather Heart disease Sister Lupus Fibromyalgia Sister , December 2022 from post op PE Endometrial cancer Father Cancer prostate. Surgical History History of lymph node dissection of right axilla S/P right mastectomy History of renal stent Hx of cystoscopy Hx of surgical procedure Status post total hysterectomy and bilateral salpingo-oophorectomy S/P cystoscopy Hx of right breast biopsy Hx of colonoscopy History of orthopedic surgery History of excision of pilonidal cyst Social History Smoking Status: Never smoker alcohol intake: never substance use type: does not use caffeine: Yes what type of physical activity do you participate in: walking frequency: 3-4 times per week seatbelt use: always do you feel safe at home: Yes additional social history: -Dony Audit: Pertinent Findings Pertinent Findings EKG Perinent findings: August 10, 2024. Normal sinus rhythm. Stress test pertinent findings: 04/18/2020. Patient achieved 7 METS. No EKG criteria for ischemia at a moderate workload. Echo (EF%) pertinent findings: 05/09/2025. EF is 60%. No aortic stenosis noted. Consult pertinent findings: 07/30/2025. Dr. Xiong. 1. Recent diagnosis of an endometrial cancer. 2. 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 Undergoing neoadjuvant chemotherapy. 3. Hypertension?controlled. Patient does have hypokalemia and hypomagnesemia. Will D/C hydrochlorothiazide and add lisinopril and amlodipine. Recommendation Anesthesia Recommendation Anesthesia recommendation: OPTIMIZED for anesthesia
[2025-10-13] VITALS (8 sets, daily range): BP systolic 110–144; BP diastolic 53–86; PULSE 78–87; RESP 16–18; TEMP 36–36.8; O2SAT 98–100; BMI 25.9
--- OUTSIDE RECORDS SUMMARY | 2025-10-13 05:58 | XMS RPT_ITS | CCD ---
Author Organization [facility] Care Team Providers Care Commercial Credit Lead Name Role Phone Dr. Lex Bryant Primary Care Provider [phone] Dr. Lex Bryant Attending Provider [phone] Dr. Lex Bryant Referring Provider [phone] BARBARA Ferreira Attending Provider Unavail Dr. Lex Uribe Primary Care Provider [phone] Dr. Lex Bryant Attending Provider [phone] Dr. Lex Bryant Referring Provider [phone] Dr. Samantha Arango Attending Provider 1(3 [phone]) Dr. Lex Bryant Primary Care Provider [phone] Dr. Lex Bryant Referring Provider [phone] Samantha Arango Referring Provider 1(3 [phone]) Dr. Samantha Arango Other Provider Dr. Samantha Arango Admit Provider Champ Giles MD Unavailable Lex Bryant Primary Care Provider [phone] Daisy Santiago APRN, CNP Unavailable Dr. Lex Bryant Attending Provider [phone] Lex Bryant Primary Care Provider [phone] Dr. Lex Bryant Referring Provider Dr. Samantha Arango Attending Provider 1(3 [phone]) Dr. Capo Xiong Attending Provider Dr. See Babin Referring Provider Dr. New Ibrahim Attending Provider Dr. Champ Giles Referring Provider Dr. New Ibrahim Referring Provider CAS YOON MD Attending Unavailable ANNETTE DO, LEX R Primary Care Unavailable Champ Glies MD Unavailable Samson MACHINIST OUTSIDE - SUPPLEMENTAL MANAGERaDisy Unavailable Dr. Samantha Arango Attending Provider Dr. Lex Bryant Attending Provider Dr. Lex Bryant Primary Care Provider Dr. Lex Bryant Referring Provider Dr. Lurdes Cormier Attending Provider Reynoso MACHINIST OUTSIDE - SUPPLEMENTAL MANAGER, Cheryle Unavailable CHAMP GILES Attending Unavailable BROWN, LEX Primary Care Unavailable DAISY HOPSON Attending Unavailable LEX BRYANT Primary Care Unavailable Annette MILLARD, Dr. Lex Williamson Primary Care Provider [phone] Dr. New Ibrahim DO Attending Provider Dr. New Ibrahim DO Referring Provider Annette MILLARD, Dr. Lex Williamson Referring Provider Dr. Lurdes Cormier MD Attending Provider Dr. Lurdes Cormier MD Referring Provider Win DIALYSIS CHIEF EQUIPMENT TECHNICIAN-C, Alley Attending Provider Win DIALYSIS CHIEF EQUIPMENT TECHNICIAN-C, Alley Referring Provider Inga FULTON, Dr. Scanlon Attending Provider Dr. Em Torres MD Attending Provider Ac DIALYSIS CHIEF EQUIPMENT TECHNICIAN-CSamantha Attending Provider Ja MILLARD, Dr. Nguyen Attending Provider Dr. Patrick Peres DO Other Provider Annette MILLARD, Dr. Lex Williamson Primary Care Provider [phone] Patrice MILLARD, Dr. Wolff Attending Provider [place] , Dr. Wolff Referring Provider Annette MILLARD, Dr. Lex Williamson Referring Provider Win DIALYSIS CHIEF EQUIPMENT TECHNICIAN-C, Alley Attending Provider Janet Lott DO, Dr. Singh Attending Provider Annette MILLARD, Dr. Lex Williamson Primary Care Provider [phone] [place] DO, Dr. Wolff Attending Provider Patrice DO, Dr. Wolff Referring Provider Ac DIALYSIS CHIEF EQUIPMENT TECHNICIAN-C, Samantha Referring Provider Annette MILLARD, Dr. Lex Williamson Primary Care Provider Annette MILLARD, Dr. Lex Williamson Referring Provider Win DIALYSIS CHIEF EQUIPMENT TECHNICIAN-C, Alley Attending Provider [place] DO, Dr. Wolff Attending Provider Patrice DO, Dr. Wolff Referring Provider Annette MILLARD, Dr. Lex Williamson Primary Care Provider [facility] , Dr. Lex Williamson Referring Provider Inga FULTON, Dr. Scanlon Attending Provider Win DIALYSIS CHIEF EQUIPMENT TECHNICIAN-C, Alley Attending Provider Win DIALYSIS CHIEF EQUIPMENT TECHNICIAN-C, Alley Referring Provider Casa FULTON, Dr. Chatman Attending Provider Dr. Lex Bryant DO Primary Care Provider Annette MILLARD, Dr. Lex Williamson Referring Provider Brian FULTON, Dr. Strickland Attending Provider Inga FULTON, Dr. Scanlon Attending Provider [place] , Dr. Wolff Attending Provider Patrice MILLARD, Dr. Wolff Referring Provider Dr. Lex Bryant DO Primary Care Provider Annette MILLARD, Dr. Lex Williamson Referring Provider [phone] Brian FULTON, Dr. Strickland Attending Provider Patrice MILLARD, Dr. Wolff Attending Provider Patrice MILLARD, Dr. Wolff Referring Provider Annette MILLARD, Dr. Lex Williamson Primary Care Provider Annette MILLARD, Dr. Lex Williamson Referring Provider Win DIALYSIS CHIEF EQUIPMENT TECHNICIAN-C, Alley Attending Provider Ac DIALYSIS CHIEF EQUIPMENT TECHNICIAN-C, Samantha Attending Provider Syeda FULTON, Dr. Mccloud Attending Provider Patrice MILLARD, Dr. Wolff Attending Provider Patrice MILLARD, Dr. Wolff Referring Provider Annette MILLARD, Dr. Lex Williamson Primary Care Provider Win DIALYSIS CHIEF EQUIPMENT TECHNICIAN-C, Alley Attending Provider Annette MILLARD, Dr. Lex Williamson Referring Provider Ac DIALYSIS CHIEF EQUIPMENT TECHNICIAN-C, Samantha Attending Provider Syeda FULTON, Dr. Mccloud Attending Provider Dr. New Ibrahim DO Attending Provider Patrice MILLARD, Dr. Wolff Referring Provider Dr. Lex Bryant DO Primary Care Provider Win DIALYSIS CHIEF EQUIPMENT TECHNICIAN-C, Alley Attending Provider Win DIALYSIS CHIEF EQUIPMENT TECHNICIAN-C, Alley Referring Provider Inga FULTON, Dr. Scanlon Attending Provider Annette MILLARD, Dr. Lex Williamson Primary Care Provider [phone] Dr. Lex Bryant DO Referring Provider [phone] Dr. Em Torres MD Attending Provider Patrice MILLARD, Dr. Wolff Attending Provider Patrice MILLARD, Dr. Wolff Referring Provider Dr. Lex Bryant DO Primary Care Physician Dr. Lex Bryant DO Referring Provider Win DIALYSIS CHIEF EQUIPMENT TECHNICIAN-C, Alley Attending Physician Syeda FULTON, Dr. Mccloud Attending Physician Brian FULTON, Dr. Strickland Attending Physician Inga FULTON, Dr. Scanlon Attending Physician Win DIALYSIS CHIEF EQUIPMENT TECHNICIAN-C, Alley Referring Provider Ac DIALYSIS CHIEF EQUIPMENT TECHNICIAN-C, Samantha Attending Physician Patrice MILLARD, Dr. Wolff Attending Physician Janet Lott DO, Dr. Singh Attending Physician Dr. Lex Bryant DO Primary Care Physician Dr. Lex Bryant DO Referring Provider Win DIALYSIS CHIEF EQUIPMENT TECHNICIAN-C, Alley Attending Physician Patrice MILLARD, Dr. Wolff Referring Provider Dr. Em Torres MD Referring Provider Patrice MILLARD, Dr. Wolff Nurse Practitioner Ungerer DIALYSIS CHIEF EQUIPMENT TECHNICIAN-C, Trina Attending Physician Ungerer DIALYSIS CHIEF EQUIPMENT TECHNICIAN-C, Trina Referring Provider [phone] Dr. Lex Bryant DO Primary Care Physician Inga FULTON, Dr. Scanlon Attending Physician Win DIALYSIS CHIEF EQUIPMENT TECHNICIAN-C, Alley Attending Physician Iwn DIALYSIS CHIEF EQUIPMENT TECHNICIAN-C, Alley Referring Provider Dr. Lex Bryant DO Referring Provider Brian FULTON, Dr. Strickland Attending Physician Ac VARGAS-C, Samantha Attending Physician Patrice MILLARD, Dr. Wolff Attending Physician Patrice MILLARD, Dr. Wolff Referring Provider Janet Lott DO, Dr. Singh Attending Physician Brian FULTON, Dr. Strickland Referring Provider Patrice MILLARD, Dr. Wolff Nurse Practitioner Enedina DIALYSIS CHIEF EQUIPMENT TECHNICIAN-C, Trina Attending Physician Enedina DIALYSIS CHIEF EQUIPMENT TECHNICIAN-C, rTina Referring Provider Brown, Lex R Primary Care Unavailable New Ibrahim Referring Unavailable New Ibrahim Attending Unavailable Brown, Lex R Primary Care Unavailable Win DIALYSIS CHIEF EQUIPMENT TECHNICIAN, Alley Attending Unavailable Win DIALYSIS CHIEF EQUIPMENT TECHNICIAN, Alley Referring Unavailable Patrick Peres Attending Unavailable Brown, Lex R Primary Care Unavailable Brown, Lex R Referring Unavailable New Ibrahim Attending Unavailable New Ibrahim Referring Unavailable Brown, Lex R Primary Care Unavailable New Ibrahim Attending Unavailable Patrice New Referring Unavailable Brown, Lex R Primary Care Unavailable Patrice, New Referring Unavailable PatriceNew ramirez Attending Unavailable Brown, Lex R Primary Care Unavailable Brown, Lex R Primary Care Unavailable Brown, Lex R Referring Unavailable Lurdes Cormier Attending Unavailable Brown, Lex R Primary Care Unavailable Capo Xiong Attending Unavailable Patrice, New Referring Unavailable PatriceNew ramirez Attending Unavailable Brown, Lex R Primary Care Unavailable Ame Landa Referring Unavailable Ame Landa Attending Unavailable Brown, Lex R Primary Care Unavailable Brown, Lex R Primary Care Unavailable Win DIALYSIS CHIEF EQUIPMENT TECHNICIAN, Alley Attending Unavailable Win DIALYSIS CHIEF EQUIPMENT TECHNICIAN, Alley Referring Unavailable Brown, Lex R Primary Care Unavailable New Ibrahim Attending Unavailable Samantha Shen Attending Unavailable Brown, Lex R Primary Care Unavailable Brown, Lex R Referring Unavailable Brown, Lex R Primary Care Unavailable Brown, Lex R Referring Unavailable Win DIALYSIS CHIEF EQUIPMENT TECHNICIAN, Alley Attending Unavailable Brown, Lex R Primary Care Unavailable Em Torres Attending Unavailable Brown, Lex R Referring Unavailable Brown, Lex R Primary Care Unavailable Win DIALYSIS CHIEF EQUIPMENT TECHNICIAN, Alley Attending Unavailable Win DIALYSIS CHIEF EQUIPMENT TECHNICIAN, Alley Referring Unavailable Brown, Lex R Primary Care Unavailable Win DIALYSIS CHIEF EQUIPMENT TECHNICIAN, Alley Referring Unavailable Win DIALYSIS CHIEF EQUIPMENT TECHNICIAN, Alley Attending Unavailable New Ibrahim Referring Unavailable New Ibrahim Attending Unavailable Brown, Lex R Primary Care Unavailable Isckarus, Em Referring Unavailable Em Torres Attending Unavailable New Ibrahim Consulting Unavailable Brown, Lex R Primary Care Unavailable PatriceNew ramirez Referring Unavailable PatriceNew ramirez Attending Unavailable Brown, Lex R Primary Care Unavailable Samantha Shen Attending Unavailable Brown, Lex R Primary Care Unavailable Brown, Lex R Referring Unavailable Brown, Lex R Primary Care Unavailable New Ibrahim Attending Unavailable Brown, Lex R Referring Unavailable Isckar, Em Referring Unavailable IscEm pacheco Attending Unavailable Brown, Lex R Primary Care Unavailable New Ibrahim Attending Unavailable New Ibrahim Referring Unavailable Brown, Lex R Primary Care Unavailable Brown, Lex R Referring Unavailable Brown, Lex R Primary Care Unavailable Win DIALYSIS CHIEF EQUIPMENT TECHNICIAN, Alley Attending Unavailable Brown, Lex R Referring Unavailable PatriceNew ramirez Attending Unavailable Brown, Lex R Primary Care Unavailable Brown, Lex R Primary Care Unavailable Capo Xiong Attending Unavailable Brown, Lex R Referring Unavailable IsckarEm schulz Attending Unavailable Brown, Lex R Primary Care Unavailable Brown, Lex R Referring Unavailable Brown, Lex R Primary Care Unavailable Win DIALYSIS CHIEF EQUIPMENT TECHNICIAN, Alley Attending Unavailable Brown, Lex R Referring Unavailable Trina Mcconnell Attending Unavailable Brown, Lex R Referring Unavailable Brown, Lex R Primary Care Unavailable Brown, Lex R Primary Care Unavailable Win DIALYSIS CHIEF EQUIPMENT TECHNICIAN, Alley Attending Unavailable Brown, Lex R Referring Unavailable Brown, Lex R Primary Care Unavailable IsckarEm schulz Attending Unavailable Brown, Lex R Referring Unavailable Brown, Lex R Primary Care Unavailable Win DIALYSIS CHIEF EQUIPMENT TECHNICIAN, Alley Attending Unavailable Brown, Lex R Referring Unavailable Brown, Lex R Primary Care Unavailable Brown, Lex R Referring Unavailable Samantha Arango Attending Unavailabl Patrick Adams Attending Unavailable Brown, Lex R Primary Care Unavailable Brown, Lex R Referring Unavailable Patrick Peres Consulting Unavailable Brown, Lex R Primary Care Unavailable Brown, Lex R Referring Unavailable Win DIALYSIS CHIEF EQUIPMENT TECHNICIAN, Alley Attending Unavailable Samantha Shen Attending Unavailable Brown, Lex R Primary Care Unavailable Brown, Lex R Referring Unavailable Brown, Lex R Primary Care Unavailable Isckarus, Em Attending Unavailable Brown, Lex R Referring Unavailable Brown, Lex R Primary Care Unavailable Brown, Lex R Referring Unavailable Win DIALYSIS CHIEF EQUIPMENT TECHNICIAN, Alley Attending Unavailable Brown, Lex R Primary Care Unavailable Capo Xiong Attending Unavailable Brown, Lex R Referring Unavailable Brown, Lex R Primary Care Unavailable Isckarus, Em Attending Unavailable Brown, Lex R Referring Unavailable Samantha Shen Attending Unavailable Brown, Lex R Primary Care Unavailable Brown, Lex R Referring Unavailable PatriceNew ramirez Attending Unavailable Patrice, New Referring Unavailable Brown, Lex R Primary Care Unavailable Brown, Lex R Primary Care Unavailable Capo Xiong Attending Unavailable Patrice, New Referring Unavailable New Ibrahim Attending Unavailable Brown, Lex R Primary Care Unavailable New Ibrahim Attending Unavailable Patrice, New Referring Unavailable Brown, Lex R Primary Care Unavailable PatriceNew ramirez Attending Unavailable Brown, Lex R Primary Care Unavailable Brown, Lex R Primary Care Unavailable IngaCapo yan Attending Unavailable Patrice, New Referring Unavailable PatriceNew ramirez Attending Unavailable Brown, Lex R Primary Care Unavailable Isckarus, Em Attending Unavailable Isckarus, Mansour Referring Unavailable Brown, Lex R Primary Care Unavailable Robotham, Lurdes Referring Unavailable Robotham, Lurdes Attending Unavailable Brown, Lex R Primary Care Unavailable Isckarus, Dejaour Referring Unavailable Isckarus, Em Attending Unavailable Brown, Lex R Primary Care Unavailable Brown, Lex R Referring Unavailable Brown, Lex R Primary Care Unavailable Win DIALYSIS CHIEF EQUIPMENT TECHNICIAN, Alley Attending Unavailable Brown, Lex R Referring Unavailable Brown, Lex R Primary Care Unavailable Isckarus, Em Attending Unavailable Brown, Lex R Primary Care Unavailable Samantha Arango Attending Unavailabl e Brown, Lex R Referring Unavailable Brown, Lex R Primary Care Unavailable Brown, Lex R Referring Unavailable Win DIALYSIS CHIEF EQUIPMENT TECHNICIAN, Alley Attending Unavailable Samantha Shen Referring Unavailable Brown, Lex R Primary Care Unavailable Samantha Shen Attending Unavailable Brown, Lex R Referring Unavailable Robotham, Lurdes Attending Unavailable Lex Bryant Primary Care Unavailable Lex Bryant Primary Care Unavailable Em Torres Attending Unavailable Lex Bryant Referring Unavailable Trina Mcconnell Referring Unavailable Trina Mcconnell Attending Unavailable Lex Bryant Primary Care Unavailable Medications Current Medications Medication Drug Class(es) Dates Sig (Normalized) Sig (Original) acetaminophen 500 mg oral tablet (19 sources) Start: 08-13-2024 take 1 tablet by mouth every six hours as needed for pain Start: 05-14-2023 End: 05-19-2023 take 2 tablets by mouth every six hours acetaminophen (Tylenol Extra Strength) 500 MG tablet Take 2 tablets (1,000 mg) by mouth in the morning and 2 tablets (1,000 mg) at noon and 2 tablets (1,000 mg) in the evening and 2 tablets (1,000 mg) before bedtime. Do all this for 5 days. 40 tablet 0 05/14/2023 05/19/2023 Active amLODIPine 5 mg oral tablet (20 sources) Dihydropyridine Calcium Channel Luz Start: 07-30-2025 take 1 tablet by mouth once daily Start: 03-23-2023 End: 01-21-2024 take 1 tablet by mouth once daily Amlodipine 5 mg tablet Discontinued 5 mg PO DAILY 90 March 22, 2023 11:00pm January 21, 2024 12:51pm anastrozole 1 mg oral tablet (3 sources) Aromatase Inhibitor Start: 08-10-2025 take 1 tablet by mouth once daily Start: 08-10-2025 take 1 tablet by mouth once da jeremias Start: 08-10-2025 take 1 tablet by mouth once da jeremias doxycycline hyclate 100 mg oral capsule (5 sources) Tetracycline-class Drug Start: 03-13-2023 take 1 capsule by mouth twice daily doxycycline (Vibramycin) 100 MG capsule Take 100 mg by mouth 2 times daily. 0 03/13/2023 Active lisinopril 40 mg oral tablet (20 sources) Angiotensin Converting Enzyme Inhibitor Start: 11-27-2024 take 1 tablet by mouth once daily Start: 04-03-2024 End: 11-27-2024 take 1 tablet by mouth once daily Lisinopril 20 mg tablet Discontinued 20 mg PO DAILY April 02, 2024 11:00pm November 27, 2024 9:55am magnesium oxide 400 mg oral capsule (20 sources) Start: 08-12-2025 take 1 capsule by [facility] three times daily Start: 08-12-2025 take 1 capsule by mo [facility] three times daily Start: 08-12-2025 take 1 capsule by mo [facility] three times daily Start: 06-09-2024 End: 06-09-2024 take 1 capsule by mouth once daily Magnesium Oxide 400 mg magnesium capsule Discontinued 400 mg PO DAILY 90 2 June 09, 2024 11:24am June 09, 2024 3:34pm Start: 05-05-2024 End: 07-30-2025 take 1 capsule by mouth three times daily Magnesium Oxide 400 mg magnesium capsule Discontinued 400 mg PO THREE TIMES A DAY 90 2 March 10, 2025 9:00am July 30, 2025 8:07am Hypomagnesemia Hypomagnesemia Start: 04-03-2024 End: 05-05-2024 take 1 capsule by mouth once daily Magnesium Oxide 400 mg magnesium capsule Discontinued 400 mg PO DAILY 90 2 April 02, 2024 11:00pm May 05, 2024 12:59pm oxyCODONE hydrochloride 5 mg oral tablet (2 sources) Opioid Agonist Start: 05-14-2023 End: 05-19-2023 take 1 tablet by mouth every four hours as needed for pain oxyCODONE (Roxicodone) 5 MG immediate release tablet Take 1 tablet (5 mg) by mouth every 4 hours as needed for severe pain (7-10) for up to 5 days. 15 tablet 0 05/14/2023 05/19/2023 Active polyethylene glycol 3350 48318 mg powder for oral solution (2 sources) Osmotic Laxative Start: 05-14-2023 End: 05-21-2023 polyethylene glycol, PEG, 3350 (Glycolax) 17 GM/SCOOP powder Take 17 g by mouth daily for 5 doses. 119 g 0 05/14/2023 05/21/2023 Active microencapsulated potassium chloride 20 meq extended release oral tablet (20 sources) Start: 08-12-2025 take 1 tablet by mouth twice daily Start: 08-12-2025 take 1 tablet by [facility] twice daily Start: 08-12-2025 take 1 tablet by [facility] twice daily Start: 08-12-2025 End: 08-12-2025 take 1 tablet by mouth twice daily Potassium Chloride 20 mEq tablet,ER particles/crystals Discontinued 20 meq PO TWICE A DAY August 11, 2025 11:00pm August 12, 2025 10:09am Low potassium count Start: 08-05-2025 End: 08-08-2025 Potassium Chloride (Klor-Con M20) 20 mEq tablet,ER particles/crystals Discontinued 20 meq PO TWICE A DAY 6 3 0 August 04, 2025 11:00pm August 06, 2025 11:00pm August 07, 2025 11:11pm Start: 05-05-2024 End: 07-26-2025 take 1 tablet by mouth twice daily Potassium Chloride 20 mEq tablet,ER particles/crystals Discontinued 20 meq PO TWICE A DAY 60 2 May 03, 2025 4:16pm July 26, 2025 12:47pm Start: 04-03-2024 End: 05-05-2024 take 1 tablet by mouth three times daily Potassium Chloride 20 mEq tablet,ER particles/crystals Discontinued 20 meq PO THREE TIMES A DAY 60 3 April 03, 2024 9:25am May 05, 2024 12:59pm Hypokalemia Hypokalemia Start: 03-19-2024 End: 04-03-2024 take 1 tablet by mouth twice daily Potassium Chloride 20 mEq tablet,ER particles/crystals Discontinued 20 meq PO TWICE A DAY 14 0 March 23, 2024 12:59pm April 02, 2024 12:51pm Hypokalemia Hypokalemia Start: 04-01-2023 End: 01-21-2024 take 1 tablet by mouth twice daily Potassium Chloride 10 mEq tablet,ER particles/crystals Discontinued 10 meq PO TWICE A DAY 90 March 31, 2023 11:00pm January 21, 2024 12:51pm Start: 03-07-2022 End: 12-11-2022 take 1 capsule by mouth once daily Potassium Chloride 10 mEq capsule, extended release Discontinued 10 meq PO DAILY 90 March 06, 2022 11:00pm December 11, 2022 2:21pm potassium chlori de CR (Klor-Con M10) 10 MEQ ER tablet Take 10 mEq by mouth daily. Do not crush or chew. 0 Active Vibegron (20 sources) Start: 03-13-2023 take 1 tablet by mouth once da jeremias Start: 03-13-2023 take 1 tablet by mouth once da jeremias Start: 03-13-2023 take 1 tablet by mouth once da jeremias Vibegron (Gemtesa) 75 mg tablet Active 75 mg PO DAILY March 13, 2023 12:00am Complies with drug therapy Start: 03-13-2023 take 1 tablet by mouth once da jeremias Vibegron (Gemtesa) 75 mg tablet Active 75 mg PO DAILY March 13, 2023 12:00am Start: 03-13-2023 take 1 tablet by mouth once da jeremias Vibegron (Gemtesa) 75 mg tablet Active 75 MG PO DAILY March 13, 2023 12:00am Vibegron 75 MG tablet (20 sources) Start: 02-19-2023 take 1 tablet by mouth once daily in the morning Vibegron 75 MG tablet Take 75 mg by mouth every morning. 02/19/2023 Active Start: 02-19-2023 take 1 tablet by tommy th once daily in the morning Vibegron 75 MG tablet Take 75 mg by mouth every morning. 0 02/19/2023 Active Start: 02-19-2023 Vibegron 75 MG tablet Take 75 mg by mouth. 0 02/19/2023 Active Completed/Discontinued Medications Medication Drug Class(es) Dates Sig (Normalized) Sig (Original) acetaminophen 325 mg / HYDROcodone bitartrate 5 mg oral tablet (20 sources) Opioid Agonist Start: 03-06-2024 End: 04-03-2024 Hydrocodone-Acetamino phen 5-325 mg tablet Discontinued 1 {tbl} PO EVERY 6 HOURS NEEDED as needed for Pain 16 4 0 March 06, 2024 April 03, 2024 9:05am Hydronephrosis of left kidney Unspecified hydronephrosis Start: 04-02-2023 End: 04-17-2023 Hydrocodone-Acetaminophen 5- 325 mg tablet Discontinued 1 {tbl} PO Q4H as needed for pain 30 7 0 April 02, 2023 April 17, 2023 10:48am 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 Benign endometrial hyperplasia Start: 04-02-2023 End: 04-17-2023 take 1 tablet by mouth every four hours Hydrocodone-Acetaminophen Discontinued 1 TABLET PO Q4H 30 7 April 02, 2023 April 17, 2023 11:48am Start: 02-11-2023 take 1 tablet by tommy th every six hours as needed for pain HYDROcodone-acetaminophen ([place]) 5-325 MG tablet TAKE 1 TABLET BY MOUTH EVERY 6 HOURS NEEDED FOR PAIN FOR FIVE DAYS 0 02/11/2023 Active Start: 02-11-2023 take 1 tablet by tommy th every six hours as needed Hydrocodone-Acetaminophen Active 1 TABLE T PO EVERY 6 HOURS NEEDED 20 5 February 11, 2023 acetaminophen 325 mg / oxyCODONE hydrochloride 5 mg oral tablet (17 sources) Opioid Agonist Start: 03-12-2024 End: 03-19-2024 Oxycodone-Acetaminophen (Percocet) 5-325 mg tablet Discontinued 1 {tbl} PO Q8H as needed for pain 20 5 0 March 12, 2024 March 19, 2024 7:06am Dilatation of left ureter Megaloureter calcium ascorbate 500 mg oral tablet (17 sources) Start: 08-24-2024 End: 11-27-2024 take 1 tablet by mouth once daily Ascorbate Calcium (Vitamin C) 500 mg tablet Discontinued 500 mg PO daily August 24, 2024 12:00am November 27, 2024 9:36am cephalexin 500 mg oral tablet (20 sources) Cephalosporin Antibacterial Start: 07-02-2024 End: 07-02-2024 take 1 tablet by mouth three times daily Cephalexin 500 mg tablet Discontinued 500 mg PO THREE TIMES A DAY July 01, 2024 11:00pm July 02, 2024 9:01am Start: 05-07-2024 End: 05-21-2024 take 1 capsule by mouth every twelve hours Cephalexin 500 mg capsule Discontinued 500 mg PO EVERY 12 HOURS 6 3 0 May 06, 2024 11:00pm May 21, 2024 7:12am post-operative ciprofloxacin 500 mg oral tablet (17 sources) Quinolone Antimicrobial Start: 03-11-2024 End: 03-19-2024 take 1 tablet by mouth twice daily Ciprofloxacin Hcl (Cipro) 500 mg tablet Discontinued 500 mg PO TWICE A DAY March 10, 2024 11:00pm March 19, 2024 7:05am clindamycin 300 mg oral capsule (20 sources) Lincosamide Antibacterial Start: 04-05-2023 End: 04-12-2023 take 1 capsule by mouth three times daily Clindamycin Hcl 300 mg capsule Discontinued 300 mg PO THREE TIMES A DAY 21 7 0 April 04, 2023 11:00pm April 10, 2023 11:00pm April 11, 2023 11:04pm Cranberry Extract (17 sources) Non-Standardized Food Allergenic Extract, Non-Standardized Plant Allergenic Extract Start: 08-24-2024 End: 11-27-2024 take 1 capsule by mouth twice daily at mealtime Cranberry Extract 500 mg capsule Discontinued 500 mg PO TWICE A DAY August 24, 2024 12:00am November 27, 2024 9:36am administer with meals Start: 08-24-2024 End: 11-27-2024 take 1 capsule by mouth twice daily at mealtime Cranberry Extract 500 mg capsule Discontinued 500 mg PO TWICE A DAY August 24, 2024 1:00am November 27, 2024 10:36am administer with meals dexamethasone 4 mg oral tablet (17 sources) Corticosteroid Start: 03-06-2024 End: 03-06-2024 take 2 tablets by mouth twice daily Dexamethasone 4 mg tablet Discontinued 8 mg PO .COMPLEX 12 5 March 05, 2024 11:00pm March 06, 2024 7:59am 8 mg orally twice daily ONLY the day before, day of, and day after chemotherapy docusate sodium 100 mg oral capsule (17 sources) Start: 03-11-2024 End: 05-05-2024 take 1 capsule by mouth once daily as needed for constipation Docusate Sodium (Dulcolax Stool Softener (Dss)) 100 mg capsule Discontinued 100 mg PO DAILY NEEDED as needed for constipation March 10, 2024 11:00pm May 05, 2024 12:57pm On Hold: Order Completed 0.4 ml enoxaparin sodium 100 mg/ml prefilled syringe (20 sources) Low Molecular Weight Heparin Start: 04-02-2023 End: 01-21-2024 Enoxaparin (Lovenox) 40 mg/0.4 mL syringe Discontinued 40 mg SC DAILY 4 2 April 17, 2023 4:44pm January 21, 2024 12:51pm start on first post operative day ( day after surgery, in the am) gabapentin 100 mg oral capsule (19 sources) Anti-epileptic Agent Start: 10-28-2023 End: 01-21-2024 take 1 capsule by mouth at bedtime Gabapentin 100 mg capsule Discontinued 100 mg PO AT BEDTIME 30 October 28, 2023 12:00am January 21, 2024 12:51pm hydroCHLOROthiazide 12.5 mg / lisinopril 20 mg oral tablet (20 sources) Thiazide Diuretic, Angiotensin Converting Enzyme Inhibitor Start: 05-01-2018 End: 04-03-2024 Lisinopril-[place] chlorothiazide 20-12.5 mg tablet Discontinued 1 {tbl} PO daily March 14, 2023 10:36am April 03, 2024 9:27am Start: 05-01-2018 End: 03-14-2023 take 1 tablet by mouth once daily Lisinopril-Hydrochlorothiazide Discontin ued 1 TABLET PO daily July 17, 2018 12:20pm March 11, 2019 9:46am hydrocortisone acetate 25 mg rectal suppository (4 sources) Corticosteroid Start: 12-28-2024 End: 02-02-2025 Hydrocortisone Acetate (Anusol-Hc) 25 mg suppository Discontinued 25 mg RC AT BEDTIME 12 December 27, 2024 11:00pm February 02, 2025 9:34am Sitz bath prior to insertion Hydrocortisone Acetate (Anusol-Hc) 25 mg suppository (13 sources) Start: 12-28-2024 End: 02-02-2025 Hydrocortisone Acetate (Anusol-Hc) 25 mg suppository Discontinued 25 mg RC AT BEDTIME December 28, 2024 12:00am February 02, 2025 10:34am Sitz bath prior to insertion Start: 12-28-2024 End: 02-02-2025 Hydrocortisone Acetate (Anus ol-Hc) 25 mg suppository Discontinued 25 mg RC AT BEDTIME December 28, 2024 12:00am February 02, 2025 10:34am Sitz bath prior to insertion Start: 12-28-2024 Hydrocortisone Acetate (Anusol-Hc) 25 mg suppository Active 25 mg RC AT BEDTIME December 28, 2024 12:00am Sitz bath prior to insertion hyoscyamine sulfate 0.125 mg oral tablet (17 sources) Start: 03-06-2024 End: 03-11-2024 take 1-2 tablets by mouth every six hours as needed Hyoscyamine Sulfate 0.125 mg tablet Discontinued 0 PO EVERY 6 HOURS as needed for cramps 30 0 March 05, 2024 11:00pm March 11, 2024 1:10pm Abdominal pain Periumbilical pain 1-2 tabs orally every 6 hours PRN; hyoscyamine sulfate 0.12 mg / methenamine 81.6 mg / methylene blue 10.8 mg / sodium phosphate, monobasic 40.8 mg oral tablet (20 sources) Oxidation-Red uction Agent Start: 11-26-2024 End: 12-28-2024 Methen-Sod Phos-Meth Blue-Hyos (Urogesic-Blue) 81.6-40.8-0.12 mg tablet Discontinued 1 {tbl} PO .qid as needed November 26, 2024 12:00am December 28, 2024 9:30am administer with plenty of fluids Start: 04-02-2024 End: 05-05-2024 Methen-Sod Phos-Meth Blue-Hy os (Urogesic-Blue) 81.6-40.8-0.12 mg tablet Discontinued 1 {tbl} PO ONCE April 01, 2024 11:00pm May 05, 2024 12:58pm administer with plenty of fluids ibuprofen 200 mg oral capsule (20 sources) Nonsteroidal Anti-inflammatory Drug Start: 03-19-2024 End: 02-02-2025 take 4 capsules by mouth every six hours as needed for pain Ibuprofen 200 mg capsule Discontinued 800 mg PO EVERY 6 HOURS as needed for pain March 18, 2024 11:00pm February 02, 2025 10:04am Start: 05-14-2023 End: 05-19-2023 take 1 tablet by mouth every six hours ibuprofen 600 MG tablet Take 1 tablet (600 mg) by mouth in the morning and 1 tablet (600 mg) at noon and 1 tablet (600 mg) in the evening and 1 tablet (600 mg) before bedtime. Do all this for 5 days. 20 tablet 0 05/14/2023 05/19/2023 Active Start: 04-02-2023 End: 04-17-2023 take 1 tablet by mouth every eight hours as needed for pain Ibuprofen 800 mg tablet Discontinued 800 mg PO Q8H as needed for pain 30 April 01, 2023 11:00pm April 17, 2023 10:48am Start: 03-22-2023 End: 04-17-2023 take 2 tablets by mouth every six hours as needed for pain Ibuprofen 200 mg Tablet Discontinued 400 mg PO EVERY 6 HOURS as needed for Pain March 21, 2023 11:00pm April 17, 2023 10:48am Start: 03-22-2023 End: 04-17-2023 take 400 mg by mouth every six hours Ibuprofen Discontinued 400 MG PO EVERY 6 HOURS March 22, 2023 12:00am April 17, 2023 11:48am Lactobacillus Combination No.9 (Adult 50 Plus Probiotic) 4 billion cell capsule (17 sources) Start: 08-24-2024 End: 09-30-2024 take 4 capsules by mouth once daily Lactobacillus Combination No.9 (Adult 50 Plus Probiotic) 4 billion cell capsule Discontinued 4000 NMA PO daily August 24, 2024 12:00am September 30, 2024 1:42pm administer with a meal Start: 08-24-2024 End: 09-30-2024 take 4 capsules by mouth once daily Lactobacillus Combination No.9 (Adult 50 Plus Probiotic) 4 billion cell capsule Discontinued 4000 NMA PO daily August 24, 2024 1:00am September 30, 2024 2:42pm administer with a meal lansoprazole 30 mg delayed release oral capsule (17 sources) Proton Pump Inhibitor Start: 04-30-2024 End: 11-27-2024 take 1 capsule by mouth once daily Lansoprazole (Prevacid) 30 mg capsule,delayed release(DR/EC) Discontinued 30 mg PO DAILY 30 2 April 29, 2024 11:00pm November 27, 2024 9:36am Gastroesophageal reflux disease Gastro-esophageal reflux disease without esophagitis lidocaine 25 mg/ml / prilocaine 25 mg/ml topical cream (17 sources) Antiarrhythmic, Amide Local Anesthetic Start: 03-06-2024 End: 03-06-2024 Lidocaine-Prilocaine 2.5-2.5 % cream Discontinued 1 NMA TOPICAL ONCE as needed for port access 30 30 2 March 05, 2024 11:00pm March 06, 2024 7:59am Malignant neoplasm of right female breast Malignant neoplasm of unspecified site of right female breast Estrogen receptor positive status [ER+] loperamide hydrochloride 2 mg oral capsule (17 sources) Opioid Agonist Start: 04-03-2024 End: 02-02-2025 take 1 capsule by mouth every six hours as needed Loperamide (Imodium A-D) 2 mg capsule Discontinued 2 mg PO EVERY 6 HOURS as needed for loose stool April 02, 2024 11:00pm February 02, 2025 10:05am LORazepam 0.5 mg oral tablet (20 sources) Benzodiazepine Start: 03-17-2024 End: 05-05-2024 take 1 tablet by mouth twice daily as needed for anxiety Lorazepam 0.5 mg tablet Discontinued 0.5 mg PO TWICE A DAY as needed for anxiety March 17, 2024 2:55pm May 05, 2024 12:58pm melatonin 10 mg oral capsule (18 sources) Start: 02-11-2024 End: 02-19-2024 take 1 capsule by mouth at bedtime as needed Melatonin 10 mg capsule Discontinued 10 mg PO BEDTIME as needed February 10, 2024 11:00pm February 19, 2024 2:24pm mesalamine 1000 mg rectal suppository (20 sources) Aminosalicylate Start: 03-17-2025 End: 07-30-2025 Mesalamine (Canasa) 1,000 mg suppository Discontinued 1 g RC AT BEDTIME 90 90 1 March 16, 2025 11:00pm July 30, 2025 8:07am Start: 02-02-2025 End: 03-02-2025 Mesalamine 1,000 mg supposit ory Discontinued 1 g RC AT BEDTIME 30 28 0 February 01, 2025 11:00pm February 28, 2025 11:00pm March 01, 2025 11:07pm methylPREDNISolone 4 mg oral tablet (20 sources) Corticosteroid Start: 03-20-2022 End: 12-11-2022 take 1 tablet by mouth once Methylprednisolone (Medrol (Clark)) 4 mg tablets,dose pack Discontinued 0 PO per package directions March 19, 2022 11:00pm December 11, 2022 2:21pm PO PER PKG DIR nitrofurantoin, macrocrystals 25 mg / nitrofurantoin, monohydrate 75 mg oral capsule (17 sources) Nitrofuran Antibacterial Start: 07-02-2024 End: 08-05-2024 take 1 capsule by mouth twice daily at mealtime Nitrofurantoin Monohyd/M-Cryst (Macrobid) 100 mg capsule Discontinued 100 mg PO TWICE A DAY July 01, 2024 11:00pm August 05, 2024 7:20am must administer with a meal/food ondansetron 8 mg disintegrating oral tablet (20 sources) Serotonin-3 Receptor Antagonist Start: 03-06-2024 End: 07-30-2025 take 1 tablet by mouth every eight hours as needed for nausea and vomiting Ondansetron 8 mg tablet,disintegrating Discontinued 8 mg PO Q8H as needed for nausea and vomiting 20 August 17, 2024 12:36pm July 30, 2025 8:07am Malignant neoplasm of right female breast Malignant neoplasm of unspecified site of right female breast Estrogen receptor positive status [ER+] Start: 07-24-2023 End: 01-21-2024 take 1 tablet by mouth every eight hours as needed for nausea Ondansetron Hcl 4 mg tablet Discontinued 4 mg PO Q8H 10 July 23, 2023 11:00pm January 21, 2024 12:51pm Nausea Nausea take 1 tab q 8 hrs prn nausea Start: 05-14-2023 End: 11-27-2023 ondansetron ODT (Zofran-ODT) 4 MG disintegrating tablet Take 1 tablet (4 mg) by mouth every 12 hours as needed for nausea or vomiting for up to 5 doses. 5 tablet 0 05/14/2023 11/27/2023 Discontinued (Therapy completed) phenazopyridine hydrochloride 200 mg oral tablet (17 sources) Start: 06-04-2024 End: 06-29-2024 take 1 tablet by mouth three times daily as needed for pain Phenazopyridine (Pyridium) 200 mg tablet Discontinued 200 mg PO THREE TIMES A DAY as needed for pain 6 0 June 03, 2024 11:00pm June 29, 2024 10:50am Dysuria Dysuria prochlorperazine 10 mg oral tablet (17 sources) Phenothiazine Start: 03-06-2024 End: 03-06-2024 take 1 tablet by mouth every six hours as needed for nausea and vomiting Prochlorperazine Maleate 10 mg tablet Discontinued 10 mg PO EVERY 6 HOURS as needed for nausea and vomiting 30 2 March 05, 2024 11:00pm March 06, 2024 7:59am Chemotherapy-induced nausea and vomiting Nausea with vomiting, unspecified Adverse effect of antineoplastic and immunosuppressive drugs, initial encounter sucralfate 1000 mg oral tablet (17 sources) Aluminum Complex Start: 07-01-2024 End: 08-05-2024 take 1 tablet by mouth four times daily 1 hour(s) before bedtime Sucralfate 1 gram tablet Discontinued 1 g PO 4 TIMES DAILY 56 0 June 30, 2024 11:00pm August 05, 2024 7:20am Take on empty stomach 1 hour before meals and at bedtime 24 hr tolterodine tartrate 4 mg extended release oral capsule (20 sources) Cholinergic Muscarinic Antagonist Start: 11-12-2019 End: 03-31-2020 take 2 tablets by mouth twice daily Tolterodine 2 mg tablet Discontinued 4 mg PO TWICE A DAY 120 1 March 30, 2020 3:02pm March 31, 2020 10:41am Start: 11-12-2019 End: 03-31-2020 take 4 mg by mouth twice daily Tolterodine Discontinue d 4 MG PO TWICE A DAY 120 March 30, 2020 4:02pm March 31, 2020 11:41am Start: 02-06-2018 End: 03-13-2023 take 1 capsule by mouth once daily Tolterodine (Detrol La) 4 mg capsule,extended release 24hr Discontinued 8 mg PO daily 180 3 March 31, 2020 11:13am March 08, 2021 3:18pm triamcinolone acetonide 1 mg/ml topical cream (20 sources) Corticosteroid Start: 03-20-2022 End: 12-11-2022 Triamcinolone Acetonide 0.1 % cream Discontinued 1 NMA TOPICAL TWICE A DAY as needed for rash, itching 80 1 March 19, 2022 11:00pm December 11, 2022 2:21pm Problems Active Problems Problem Classification Problem Date Documented Da te Episodic/Chronic Abdominal pain (20 sources) Acute pain in female pelvis; Translations: [Pelvic and perineal pain] 02-11-2023 Episodic Administrative/social admission (20 sources) Patient encounter status; Translations: [Counseling, unspecified] 08-05-2023 Episodic Allergic reactions (1 source) Allergic contact dermatitis due to plants, except food; Translations: [Contact dermatitis and other eczema due to plants [except food]] Episodic Cancer of breast (20 sources) Malignant neoplasm of breast upper outer quadrant; Translations: [Malignant neoplasm of upper-outer quadrant of right female breast] Onset: 5 09-03-2024 Chronic Cancer of uterus (20 sources) Malignant neoplasm of endometrium of corpus uteri ; Translations: [Malignant neoplasm of endometrium] Onset: 4 02-11-2023 Chronic Complications of surgical procedures or medical care (20 sources) Seroma following procedure; Translations: [Seroma complicating a procedure] 09-23-2024 Episodic Deficiency and other anemia (17 sources) Anemia due to chronic blood loss; Translations: [Iron deficiency anemia secondary to blood loss (chronic)] 05-21-2024 Chronic Deficiency and other anemia (1 source) Iron deficiency anemia secondary to blood loss (chronic); Translations: [Iron deficiency anemia secondary to blood loss (chronic)] Onset: 5 Chronic Deficiency and other anemia (20 sources) Anemia; Translations: [Anemia, unspecified] 07-02-2018 Episodic Deficiency and other anemia (5 sources) Anemia, unspecified; Translations: [Anemia, unspecified] Onset: 5 04-03-2023 Episodic Esophageal disorders (17 sources) Gastroesophageal reflux disease; Translations: [Gastro-esophageal reflux disease without esophagitis] 06-29-2024 Chronic Essential hypertension (20 sources) Hypertensive disorder; Translations: [Essential (primary) hypertension] Onset: Chronic Comment on above: CONTROLLED WITH MED Fluid and electrolyte disorders (20 sources) Hypokalemia; Translations: [Hypokalemia] Onset: 5 03-07-2022 Episodic Comment on above: repeat potassium tod ay. she is on potassium supplements daily due to use of diuretic. Headache; including migraine (20 sources) Chronic headache disorder; Translations: [Chronic headache] 07-02-2018 Episodic Heart valve disorders (20 sources) Mitral valve prolapse; Translations: [Nonrheumatic mitral (valve) prolapse] 07-02-2018 Chronic Comment on above: 2004 Hemorrhoids (20 sources) Hemorrhoids; Translations: [Unspecified hemorrhoids] 12-28-2024 Episodic Lymphadenitis (17 sources) Lymphadenopathy; Translations: [Enlarged lymph nodes, unspecified] 07-30-2024 Episodic Comment on above: Positive lymph node previously clipped prior to neoadjuvant Maintenance chemotherapy; radiotherapy (17 sources) Patient encounter status; Translations: [Encounter for antineoplastic chemotherapy] 01-08-2025 Chronic Comment on above: HAS CHEMOTHERAPY Q 3 WEEKS-LAST APPOINTMENT 01-07-25 Menopausal disorders (20 sources) Postmenopausal bleeding; Translations: [Postmenopausal bleeding] 12-11-2022 Chronic Nausea and vomiting (19 sources) Nausea; Translations: [Nausea] 07-24-2023 Episodic Osteoarthritis (20 sources) Arthritis; Translations: [Unspecified osteoarthritis, unspecified site] 07-02-2018 Chronic Comment on above: HIPS AND KNEES Other diseases of kidney and ureters (17 sources) Hydronephrosis; Translations: [Unspecified hydronephrosis] 03-14-2024 Episodic Other diseases of kidney and ureters (17 sources) Dilatation of ureter; Translations: [Megaloureter] 03-14-2024 Episodic Other female genital disorders (20 sources) Complex endometrial hyperplasia without atypia; Translations: [Benign endometrial hyperplasia] 03-13-2023 Chronic Other female genital disorders (9 sources) Benign endometrial hyperplasia; Translations: [Complex endometrial hyperplasia without atypia] 03-13-2023 Chronic Other gastrointestinal disorders (17 sources) Abdominal mass; Translations: [Intra-abdominal and pelvic swelling, mass and lump, unspecified site] 03-31-2024 Episodic Comment on above: cyst/mass between ur eter and aorta Other gastrointestinal disorders (20 sources) Diarrhea; Translations: [Diarrhea, unspecified] 04-30-2024 Episodic Other gastrointestinal disorders (17 sources) Diarrhea due to drug; Translations: [Toxic gastroenteritis and colitis] 06-25-2024 Episodic Other liver diseases (20 sources) Elevated liver enzymes level; Translations: [Abnormal levels of other serum enzymes] 03-17-2025 Episodic Other nutritional; endocrine; and metabolic disorders (20 sources) Hypomagnesemia; Translations: [Hypomagnesemia] 08-24-2024 Chronic Other nutritional; endocrine; and metabolic disorders (2 sources) Hypomagnesemia; Translations: [Hypomagnesemia] Onset: Chronic Other screening for suspected conditions (not mental disorders or infectious disease) (17 sources) Ultrasound scan abnormal; Translations: [Abnormal findings on diagnostic imaging of other specified body structures] 03-17-2024 Chronic Comment on above: right axillary LN Other screening for suspected conditions (not mental disorders or infectious disease) (20 sources) Ultrasonography of abdomen abnormal; Translations: [Abnormal findings on diagnostic imaging of other abdominal regions, including retroperitoneum] Onset: 5 02-11-2023 Episodic Residual codes; unclassified (20 sources) Family history of cancer of colon; Translations: [Family history of malignant neoplasm of digestive organs] 03-20-2019 Episodic Comment on above: M dx age 59 Residual codes; unclassified (6 sources) Acquired absence of both cervix and uterus; Translations: [Acquired absence of both cervix and uterus] 04-03-2023 Episodic Residual codes; unclassified (6 sources) Family history of malignant neoplasm of digestive organs; Translations: [Family history of malignant neoplasm of gastrointestinal tract] 04-03-2023 Episodic Residual codes; unclassified (2 sources) Postoperative state; Translations: [Other specified postprocedural states] 05-24-2023 Episodic Residual codes; unclassified (17 sources) Bilateral lower leg edema; Translations: [Localized edema] 04-30-2024 Episodic Residual codes; unclassified (20 sources) History of right mastectomy; Translations: [Acquired absence of right breast and nipple] 08-12-2024 Episodic Comment on above: 08/11/[address] neoadjuvant Residual codes; unclassified (2 sources) Asymptomatic menopausal state; Translations: [Asymptomatic menopausal state] Onset: Episodic Residual codes; unclassified (2 sources) Estrogen receptor positive status [ER+]; Translations: [Estrogen receptor positive status [ER+]] Onset: Episodic Secondary malignancies (20 sources) Regional lymph node metastasis present ; Translations: [Secondary and unspecified malignant neoplasm of lymph node, unspecified] 08-24-2024 Chronic Secondary malignancies (2 sources) Secondary and unspecified malignant neoplasm of lymph node, unspecified; Translations: [Secondary and unspecified malignant neoplasm of lymph node, unspecified] Onset: Chronic Spondylosis; intervertebral disc disorders; other back problems (20 sources) Back problem; Translations: [Dorsopathy, unspecified] 07-02-2018 Episodic Unclassified (4 sources) C50.411 - Malignant neoplasm of upper-outer quadrant of right female breast,C77.9 - Secondary and unspecified malignant neoplasm of lymph node, unspecified Unclassified (7 sources) R53.1 - Weakness,C50.911 - Malignant neoplasm of unspecified site of right female breast,Z17.0 - Estrogen receptor positive status [ER+] Unclassified (3 sources) Malignant neoplasm of right female breast Unclassified (1 source) 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; Translations: [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] Onset: 5 Unclassified (1 source) 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; Translations: [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] Onset: 5 Past or Other Problems Problem Classification Problem Date Documented Da te Episodic/Chronic Gastrointestinal hemorrhage (20 sources) Gastrointestinal hemorrhage; Translations: [Hemorrhage of anus and rectum] Onset: 5 06-05-2024 Episodic Genitourinary symptoms and ill-defined conditions (18 sources) Dysuria; Translations: [Dysuria] Onset: 4 06-04-2024 Episodic Malaise and fatigue (19 sources) Asthenia; Translations: [Weakness] Onset: 5 01-28-2025 Episodic Nonmalignant breast conditions (7 sources) Lump of upper outer quadrant of breast; Translations: [Unspecified lump in unspecified breast] Onset: 5 01-21-2024 Episodic Other aftercare (1 source) Encounter for therapeutic drug level monitoring; Translations: [Encounter for therapeutic drug level monitoring] Onset: 5 Episodic Residual codes; unclassified (1 source) Acquired absence of right breast and nipple; Translations: [Acquired absence of right breast and nipple] Onset: 4 Episodic Residual codes; unclassified (1 source) Other specified postprocedural states; Translations: [Other specified postprocedural states] Onset: 4 Episodic Results Test Name Value Interpretation Reference Range Facility Dexa Bone Density Studyon Dexa Bone Density Study Normal [facility] Anion gap in Serum or Plasma Ordered By: Trina Mcconnell on 08-12-2025 Anion gap [Moles/Vol] 10 mmol/L 5-15 [facility] BUN/creatinine ratioOrdered By: Trina Mcconnell on 08-12-2025 Urea nitrogen/Creatinine [Mass ratio] 24.8 mg/mg High 08-09 [facility] Basic Metabolic Profile (BMP )on 08-12-2025 BUN/CRE 24.8 RATIO High 08-09 [facility] Comment on above: Performed By: #### L 500.2500 ####[facility] [address] [place], [address] Calcium [Mass/Vol] 9.2 mg/dL Normal 7.6-11.0 [facility] Comment on above: Performed By: #### L 500.2500 ####[facility] [address] [place], [address] Chloride [Moles/Vol] 102 mmol/L Normal 98-108 [facility] Comment on above: Performed By: #### L [id number] ####[facility] [address] [place], [address] CO2 [Moles/Vol] 28.9 mmol/L Normal 21.0-32.0 [facility] Comment on above: Performed By: #### L [id number] ####[facility] [address] [place], [address] Creatinine [Mass/Vol] 0.65 mg/dL Low 0.70-1.20 [facility] Comment on above: Performed By: #### L 500.2500 ####[facility] [address] [place], [address] GAP 10 Normal 5-15 [facility] Comment on above: Performed By: #### L 500.2500 ####[facility] [address] [place], [address] GFR/1.73 sq M.predicted among non-blacks MDRD (S/P/Bld) [Vol rate/Area] 95 mL/min/{1.73_m2} Normal >60 [facility] Comment on above: Result Comment: mL/m in/1.73m2 CKD-EPI Creatinine Equation (2020) Performed By: #### L 500.2500 ####[facility] [address] [place], [address] Glucose [Mass/Vol] 105 mg/dL High 70-99 [facility] Comment on above: Performed By: #### L 500.2500 ####[facility] [address] [place], [address] Potassium [Moles/Vol] 3.0 mmol/L Low 3.3-5.1 [facility] Comment on above: Performed By: #### L [id number] ####[facility] [address] [place], [address] Sodium [Moles/Vol] 141 mmol/L Normal 133-145 [facility] Comment on above: Performed By: #### L 500.2500 ####[facility] [address] [place], [address] Urea nitrogen [Mass/Vol] 16 mg/dL Normal 4-19 [facility] Comment on above: Performed By: #### L 500.2500 ####[facility] [address] [place], [address] Carbon dioxide, total [Moles /volume] in Central venous bloodOrdered By: Trina Mcconnell on 08-12-2025 CO2 [Moles/Vol] 28.9 mmol/L 21.0-32.0 [facility] Chloride assayOrdered By: Celestino Mcconnell on 08-12-2025 Chloride [Moles/Vol] 102 mmol/L 98-108 [facility] Glomerular filtration rate ( GFR) estimation/1.73 sq m using serum, plasma, or whole bOrdered By: Trina Mcconnell on 08-12-2025 GFR/1.73 sq M.predicted among non-blacks MDRD (S/P/Bld) [Vol rate/Area] 95 mL/min/{1.73_m2} >60 [facility] Comment on above: mL/min/1.73m2 CKD-EP I Creatinine Equation (2020) Internal Medicine Office Vis iton 08-12-2025 Internal Medicine Office Visit Normal [facility] Potassium measurement (mass/ volume)Ordered By: Trina Mcconnell on 08-12-2025 Potassium (Unsp spec) [Mass/Vol] 3.0 mmol/L Low 3.3-5.1 [facility] Serum creatinine measurement (mass/volume)Ordered By: Trina Mcconnell on 08-12-2025 Creatinine [Mass/Vol] 0.65 mg/dL Low 0.70-1.20 [facility] Serum glucose measurement (m ass/volume)Ordered By: Trina Mcconnell on 08-12-2025 Glucose [Mass/Vol] 105 mg/dL High 70-99 [facility] Serum or plasma calcium mireille urement (mass/volume)Ordered By: Trina Mcconnell on 08-12-2025 Calcium [Mass/Vol] 9.2 mg/dL 7.6-11.0 [facility] Serum or plasma urea nitroge n measurement (mass/volume)Ordered By: Trina Mcconnell on 08-12-2025 Urea nitrogen [Mass/Vol] 16 mg/dL 4-19 [facility] Sodium levelOrdered By: Danay Mcconnell on 08-12-2025 Sodium [Moles/Vol] 141 mmol/L 133-145 [facility] Oncology Visit Reporton 07-22 Oncology Visit Report Normal [facility] Absolute lymphocyte countOrd ered By: Em Torres on 08-05-2025 Lymphocytes Auto (Unsp spec) [#/Vol] 0.61 10*3/uL Low 0.83-4.51 [facility] Absolute neutrophil countOrd ered By: Em Torres on 08-05-2025 Neutrophils (Bld) [#/Vol] 3.0 10*3/uL 2.0-7.7 [facility] Anion gap in Serum or Plasma Ordered By: Em Torres on 08-05-2025 Anion gap [Moles/Vol] 9 mmol/L 5-15 [facility] Automated lymphocyte count a s percentage of total leukocytesOrdered By: Em Torres on 08-05-2025 Lymphocytes/100 WBC Auto (Unsp spec) 14.6 % Low 19-41 [facility] BUN/creatinine ratioOrdered By: Em Keyes on 08-05-2025 Urea nitrogen/Creatinine [Mass ratio] 25.5 mg/mg High 10-20 [facility] Basophil percentageOrdered B y: Em Nicholstara on 08-05-2025 Basophils/100 WBC (Bld) 1.2 % High 0-1 [facility] Bilirubin, totalOrdered By: Em Nicholstara on 08-05-2025 Bilirubin [Mass/Vol] 0.80 mg/dL 0.00-1.30 [facility] CBC W/Diff, Automatedon 07-21 Absolute Lymph 0.61 X10 3/uL Low 0.83-4.51 [facility] Comment on above: Performed By: #### L 500.4050, L501.2300, L100.0100, L501.5200 ####[facility] [address] [place], [address] Absolute Neut 3.0 X10 3/uL Normal 2.0-7.7 [facility] Comment on above: Performed By: #### L 500.4050, L501.2300, L100.0100, L501.5200 ####[facility] [address] [place], [address] Basophils/100 WBC (Bld) 1.2 % High 0-1 [facility] Comment on above: Performed By: #### L 500.4050, L501.2300, L100.0100, L501.5200 ####[facility] [address] [place], [address] Eosinophils/100 WBC (Bld) 2.2 % Normal 0-5 [facility] Comment on above: Performed By: #### L 500.4050, L501.2300, L100.0100, L501.5200 ####[facility] [address] [place], [address] Erythrocyte distribution width (RBC) [Ratio] 16.7 % High 11.6-14.6 [facility] Comment on above: Performed By: #### L 500.4050, L501.2300, L100.0100, L501.5200 ####[facility] [address] [place], [address] Hematocrit (Bld) [Volume fraction] 29.2 % Low 37-47 [facility] Comment on above: Performed By: #### L 500.4050, L501.2300, L100.0100, L501.5200 ####[facility] [address] [place], [address] Hemoglobin (Bld) [Mass/Vol] 9.4 g/dL Low 12.0-15.0 [facility] Comment on above: Performed By: #### L 500.4050, L501.2300, L100.0100, L501.5200 ####[facility] [address] [place], [address] IG% 0.500 Normal 0.0-0.9 [facility] Comment on above: Result Comment: IG% - Immature Granulocytes (promyelocytes, myelocytes andmetamyelocytes) > 1% indicates that a LEFT SHIFT is Present. Performed By: #### L 500.4050, L501.2300, L100.0100, L501.5200 ####[facility] [address] [place], [address] Lymphocytes/100 WBC (Bld) 14.6 % Low 19-41 [facility] Comment on above: Performed By: #### L 500.4050, L501.2300, L100.0100, L501.5200 ####[facility] [address] [place], [address] MCH (RBC) [Entitic mass] 30.2 pg Normal 27.0-32.0 [facility] Comment on above: Performed By: #### L 500.4050, L501.2300, L100.0100, L501.5200 ####[facility] [address] [place], [address] MCHC (RBC) [Mass/Vol] 32.2 g/dL Normal 32-36 [facility] Comment on above: Performed By: #### L 500.4050, L501.2300, L100.0100, L501.5200 ####[facility] [address] [place], [address] MCV (RBC) [Entitic vol] 93.9 fL Normal 81-99 [facility] Comment on above: Performed By: #### L 500.4050, L501.2300, L100.0100, L501.5200 ####[facility] [address] [place], [address] Monocytes/100 WBC (Bld) 9.4 % Normal 0-10 [facility] Comment on above: Performed By: #### L 500.4050, L501.2300, L100.0100, L501.5200 ####[facility] [address] [place], [address] Neutrophils/100 WBC (Bld) 72.1 % High 47-70 [facility] Comment on above: Performed By: #### L 500.4050, L501.2300, L100.0100, L501.5200 ####[facility] [address] [place], [address] Nucleated RBC (Bld) [#/Vol] 0 10*3/uL Normal 0-5 [facility] Comment on above: Performed By: #### L 500.4050, L501.2300, L100.0100, L501.5200 ####[facility] [address] [place], [address] Platelet mean volume (Bld) [Entitic vol] 8.5 fL Normal 6.2-12.0 [facility] Comment on above: Performed By: #### L 500.4050, L501.2300, L100.0100, L501.5200 ####[facility] [address] [place], [address] Platelets (Bld) [#/Vol] 163 10*3/uL Normal 150-450 [facility] Comment on above: Performed By: #### L 500.4050, L501.2300, L100.0100, L501.5200 ####[facility] [address] [place], [address] RBC (Bld) [#/Vol] 3.11 10*6/uL Low 4.2-5.4 [facility] Comment on above: Performed By: #### L 500.4050, L501.2300, L100.0100, L501.5200 ####[facility] [address] [place], [address] RDW SD 57.3 fl High 35.1-43.9 [facility] Comment on above: Performed By: #### L 500.4050, L501.2300, L100.0100, L501.5200 ####[facility] [address] [place], [address] WBC (Bld) [#/Vol] 4.2 10*3/uL Low 4.4-11.0 [facility] Comment on above: Performed By: #### L 500.4050, L501.2300, L100.0100, L501.5200 ####[facility] [address] [place], [address] Carbon dioxide, total [Moles /volume] in Central venous bloodOrdered By: Em Torres on 08-05-2025 CO2 [Moles/Vol] 29.2 mmol/L 21.0-32.0 [facility] Chloride assayOrdered By: Shonna Torres on 08-05-2025 Chloride [Moles/Vol] 101 mmol/L 98-108 [facility] Comprehensive Metabolic Prof ilon 08-05-2025 Albumin [Mass/Vol] 3.4 g/dL Normal 3.4-4.8 [facility] Comment on above: Performed By: #### L 500.4050, L501.2300, L100.0100, L501.5200 ####[facility] [address] [place], [address] Albumin/Globulin [Mass ratio] 1.4 {ratio} Normal 0.9-2.4 [facility] Comment on above: Performed By: #### L 500.4050, L501.2300, L100.0100, L501.5200 ####[facility] [address] [place], [address] ALK PHOS 162 U/L High 35-104 [facility] Comment on above: Performed By: #### L 500.4050, L501.2300, L100.0100, L501.5200 ####[facility] [address] [place], [address] ALT [Catalytic activity/Vol] 34 U/L Normal <=34 [facility] Comment on above: Performed By: #### L 500.4050, L501.2300, L100.0100, L501.5200 ####[facility] [address] [place], [address] AST [Catalytic activity/Vol] 57 U/L High <=31 [facility] Comment on above: Performed By: #### L 500.4050, L501.2300, L100.0100, L501.5200 ####[facility] [address] [place], [address] Bilirubin [Mass/Vol] 0.80 mg/dL Normal 0.00-1.30 [facility] Comment on above: Performed By: #### L 500.4050, L501.2300, L100.0100, L501.5200 ####[facility] [address] [place], [address] BUN/CRE 25.5 RATIO High 10-20 [facility] Comment on above: Performed By: #### L 500.4050, L501.2300, L100.0100, L501.5200 ####[facility] [address] [place], [address] Calcium [Mass/Vol] 9.1 mg/dL Normal 7.6-11.0 [facility] Comment on above: Performed By: #### L 500.4050, L501.2300, L100.0100, L501.5200 ####[facility] [address] [place], [address] Chloride [Moles/Vol] 101 mmol/L Normal 98-108 [facility] Comment on above: Performed By: #### L 500.4050, L501.2300, L100.0100, L501.5200 ####[facility] [address] [place], [address] CO2 [Moles/Vol] 29.2 mmol/L Normal 21.0-32.0 [facility] Comment on above: Performed By: #### L 500.4050, L501.2300, L100.0100, L501.5200 ####[facility] [address] [place], [address] Creatinine [Mass/Vol] 0.73 mg/dL Normal 0.70-1.20 [facility] Comment on above: Performed By: #### L 500.4050, L501.2300, L100.0100, L501.5200 ####[facility] [address] [place], [address] ECRCL 67.12 ml/min Normal 50-250 [facility] Comment on above: Performed By: #### L 500.4050, L501.2300, L100.0100, L501.5200 ####[facility] [address] [place], [address] GAP 9 Normal 5-15 [facility] Comment on above: Performed By: #### L 500.4050, L501.2300, L100.0100, L501.5200 ####[facility] [address] [place], [address] GFR/1.73 sq M.predicted among non-blacks MDRD (S/P/Bld) [Vol rate/Area] 88 mL/min/{1.73_m2} Normal >60 [facility] Comment on above: Result Comment: mL/m in/1.73m2 CKD-EPI Creatinine Equation (2020) Performed By: #### L 500.4050, L501.2300, L100.0100, L501.5200 ####[facility] [address] [place], [address] Globulin (S) [Mass/Vol] 2.4 g/dL Normal 2.2-4.2 [facility] Comment on above: Performed By: #### L 500.4050, L501.2300, L100.0100, L501.5200 ####[facility] [address] [place], [address] Glucose [Mass/Vol] 101 mg/dL High 70-99 [facility] Comment on above: Performed By: #### L 500.4050, L501.2300, L100.0100, L501.5200 ####[facility] [address] [place], [address] Potassium [Moles/Vol] 2.8 mmol/L Low 3.3-5.1 [facility] Comment on above: Performed By: #### L 500.4050, L501.2300, L100.0100, L501.5200 ####[facility] [address] [place], [address] Sodium [Moles/Vol] 139 mmol/L Normal 133-145 [facility] Comment on above: Performed By: #### L 500.4050, L501.2300, L100.0100, L501.5200 ####[facility] [address] [place], [address] T PROT 5.9 g/dL Normal 5.9-8.4 [facility] Comment on above: Performed By: #### L 500.4050, L501.2300, L100.0100, L501.5200 ####[facility] [address] [place], [address] Urea nitrogen [Mass/Vol] 19 mg/dL Normal 4-19 [facility] Comment on above: Performed By: #### L 500.4050, L501.2300, L100.0100, L501.5200 ####[facility] [address] [place], [address] Eosinophil percentageOrdered By: Em Torres on 08-05-2025 Eosinophils/100 WBC (Bld) 2.2 % 0-5 [facility] Erythrocyte distribution wid th ratioOrdered By: Em Torres on 08-05-2025 Erythrocyte distribution width (RBC) [Ratio] 16.7 % High 11.6-14.6 [facility] Erythrocyte distribution wid th standard deviationOrdered By: Em Torres on 08-05-2025 Erythrocyte distribution width (RBC) [Ratio] 57.3 fl High 35.1-43.9 [facility] Glomerular filtration rate ( GFR) estimation/1.73 sq m using serum, plasma, or whole bOrdered By: Em Torres on 08-05-2025 GFR/1.73 sq M.predicted among non-blacks MDRD (S/P/Bld) [Vol rate/Area] 88 mL/min/{1.73_m2} >60 [facility] Comment on above: mL/min/1.73m2 CKD-EP I Creatinine Equation (2020) Hematocrit Auto (Bld) [Volum e fraction]Ordered By: Em Torres on 08-05-2025 Hematocrit (Bld) [Volume fraction] 29.2 % Low 37-47 [facility] Hemoglobin measurementOrdere d By: Em Torres on 08-05-2025 Hemoglobin (Bld) [Mass/Vol] 9.4 g/dL Low 12.0-15.0 [facility] Immature granulocytes/100 WB C Auto (Bld)Ordered By: Em Torres on 08-05-2025 Immature granulocytes/100 WBC (Bld) 0.500 % 0.0-0.9 [facility] Comment on above: IG% - Immature Granu locytes (promyelocytes, myelocytes and metamyelocytes) > 1% indicates that a LEFT SHIFT is Present. Laboratory - Chemistry and C hemistry - challengeOrdered By: Em Torres on 08-05-2025 AST [Catalytic activity/Vol] 57 U/L High <32 [facility] MCV (mean corpuscular volume ) determinationOrdered By: Em Torres on 08-05-2025 MCV (RBC) [Entitic vol] 93.9 fL 81-99 [facility] Magnesiumon 08-05-2025 Magnesium [Mass/Vol] 1.3 mg/dL Low 1.5-2.2 [facility] Comment on above: Performed By: #### L 500.4050, L501.2300, L100.0100, L501.5200 ####[facility] [address] [place], [place], [id number] Magnesium measurement (mass/ volume)Ordered By: Em Torres on 08-05-2025 Magnesium (Unsp spec) [Mass/Vol] 1.3 mg/dL Low 1.5-2.2 [facility] Mean corpuscular hemoglobin (MCH) determinationOrdered By: Em Torres on 08-05-2025 MCH (RBC) [Entitic mass] 30.2 pg 27.0-32.0 [facility] Mean corpuscular hemoglobin concentration (MCHC) determinationOrdered By: Em Torres on 08-05-2025 MCHC (RBC) [Mass/Vol] 32.2 g/dL 32-36 [facility] Mean platelet volume determi nationOrdered By: Em Torres on 08-05-2025 Platelet mean volume (Bld) [Entitic vol] 8.5 fL 6.2-12.0 [facility] Monocyte percentageOrdered B y: Em Torres on 08-05-2025 Monocytes/100 WBC (Bld) 9.4 % 0-10 [facility] Neutrophil percentageOrdered By: Em Torres on 08-05-2025 Neutrophils/100 WBC (Bld) 72.1 % High 47-70 [facility] Nucleated red blood cell per centageOrdered By: [facility] on 08-05-2025 Nucleated RBC/100 WBC (Bld) [Ratio] 0 % 0-5 [facility] Oncology Visit Reporton 07-21 Oncology Visit Report Normal [facility] Phosphoruson 08-05-2025 Phosphate [Mass/Vol] 2.6 mg/dL Low 2.7-4.5 [facility] Comment on above: Performed By: #### L 500.4050, L501.2300, L100.0100, L501.5200 ####[facility] [address] [place], [address] Platelet countOrdered By: Shonna Torres on 08-05-2025 Platelets (Bld) [#/Vol] 163 10*3/uL 150-450 [facility] Potassium measurement (mass/ volume)Ordered By: Em Torres on 08-05-2025 Potassium (Unsp spec) [Mass/Vol] 2.8 mmol/L Low 3.3-5.1 [facility] RBC Auto (Bld) [#/Vol]Ordere d By: Em Torres on 08-05-2025 RBC (Bld) [#/Vol] 3.11 10*6/uL Low 4.2-5.4 [facility] Serum creatinine measurement (mass/volume)Ordered By: Em Torres on 08-05-2025 Creatinine [Mass/Vol] 0.73 mg/dL 0.70-1.20 [facility] Serum globulin measurementOr dered By: Em Torres on 08-05-2025 Globulin (S) [Mass/Vol] 2.4 g/dL 2.2-4.2 [facility] Serum glucose measurement (m ass/volume)Ordered By: Em Torres on 08-05-2025 Glucose [Mass/Vol] 101 mg/dL High 70-99 [facility] Serum or plasma alanine ratliff otransferase (ALT) measurementOrdered By: Em Torres on 08-05-2025 ALT [Catalytic activity/Vol] 34 U/L <35 [facility] Serum or plasma albumin mireille urement (mass/volume)Ordered By: Em Torres on 08-05-2025 Albumin [Mass/Vol] 3.4 g/dL 3.4-4.8 [facility] Serum or plasma albumin/glob ulin mass ratioOrdered By: Em Torres on 08-05-2025 Albumin/Globulin [Mass ratio] 1.4 {ratio} 0.9-2.4 [facility] Serum or plasma alkaline cristiano sphatase measurementOrdered By: Em Torres on 08-05-2025 ALP [Catalytic activity/Vol] 162 U/L High 35-104 [facility] Serum or plasma calcium mireille urement (mass/volume)Ordered By: Em Torres on 08-05-2025 Calcium [Mass/Vol] 9.1 mg/dL 7.6-11.0 [facility] Serum or plasma urea nitroge n measurement (mass/volume)Ordered By: Em Torres on 08-05-2025 Urea nitrogen [Mass/Vol] 19 mg/dL 4-19 [facility] Sodium levelOrdered By: Deja Torres on 08-05-2025 Sodium [Moles/Vol] 139 mmol/L 133-145 [facility] Total proteinOrdered By: Americo Torres on 08-05-2025 Protein [Mass/Vol] 5.9 g/dL 5.9-8.4 [facility] White blood cell (WBC) count Ordered By: Em Torres on 08-05-2025 WBC (Bld) [#/Vol] 4.2 10*3/uL Low 4.4-11.0 [facility] Bone Scan Whole Bodyon 08-04 Bone Scan Whole Body Normal [facility] CT Chest, Abd, Pel w/Contras ton 07-30-2025 CT Chest, Abd, Pel w/Contrast Normal [facility] Cardiology Visit Reporton Cardiology Visit Report Normal [facility] [employer] Office Visit Reporton 07-26-2025 [employer] Office Visit Report Normal [facility] SCREEN MAMM (CAD) W/JUAN DANIEL UNI Selvin 07-26-2025 SCREEN MAMM (CAD) W/JUAN DANIEL UNI L Normal [facility] Absolute lymphocyte countOrd ered By: Em Torres on 06-24-2025 Lymphocytes Auto (Unsp spec) [#/Vol] 0.37 10*3/uL Low 0.83-4.51 [facility] Absolute neutrophil countOrd ered By: Em Torres on 06-24-2025 Neutrophils (Bld) [#/Vol] 2.4 10*3/uL 2.0-7.7 [facility] Anion gap in Serum or Plasma Ordered By: Em Torres on 06-24-2025 Anion gap [Moles/Vol] 10 mmol/L 5-15 [facility] Automated lymphocyte count a s percentage of total leukocytesOrdered By: Em Torres on 06-24-2025 Lymphocytes/100 WBC Auto (Unsp spec) 10.9 % Low 19-41 [facility] BUN/creatinine ratioOrdered By: Em Torres on 06-24-2025 Urea nitrogen/Creatinine [Mass ratio] 31.1 mg/mg High 10-20 [facility] Basophil percentageOrdered B y: Em Torres on 06-24-2025 Basophils/100 WBC (Bld) 1.2 % High 0-1 [facility] Bilirubin, totalOrdered By: Em Torres on 06-24-2025 Bilirubin [Mass/Vol] 0.99 mg/dL 0.00-1.30 [facility] CBC W/Diff, Automatedon Absolute Lymph 0.37 X10 3/uL Low 0.83-4.51 [facility] Comment on above: Performed By: #### L 500.4050, L100.0100 ####[facility] [address] [place], [address] Absolute Neut 2.4 X10 3/uL Normal 2.0-7.7 [facility] Comment on above: Performed By: #### L 500.4050, L100.0100 ####[facility] [address] [place], [address] Basophils/100 WBC (Bld) 1.2 % High 0-1 [facility] Comment on above: Performed By: #### L 500.4050, L100.0100 ####[facility] [address] [place], [address] Eosinophils/100 WBC (Bld) 4.1 % Normal 0-5 [facility] Comment on above: Performed By: #### L 500.4050, L100.0100 ####[facility] [address] [place], [address] Erythrocyte distribution width (RBC) [Ratio] 17.5 % High 11.6-14.6 [facility] Comment on above: Performed By: #### L 500.4050, L100.0100 ####[facility] [address] [place], [address] Hematocrit (Bld) [Volume fraction] 27.2 % Low 37-47 [facility] Comment on above: Performed By: #### L 500.4050, L100.0100 ####[facility] [address] [place], [address] Hemoglobin (Bld) [Mass/Vol] 9.0 g/dL Low 12.0-15.0 [facility] Comment on above: Performed By: #### L 500.4050, L100.0100 ####[facility] [address] [place], [address] IG% 0.600 Normal 0.0-0.9 [facility] Comment on above: Result Comment: IG% - Immature Granulocytes (promyelocytes, myelocytes andmetamyelocytes) > 1% indicates that a LEFT SHIFT is Present. Performed By: #### L 500.4050, L100.0100 ####[facility] [address] [place], [address] Lymphocytes/100 WBC (Bld) 10.9 % Low 19-41 [facility] Comment on above: Performed By: #### L 500.4050, L100.0100 ####[facility] [address] [place], [address] MCH (RBC) [Entitic mass] 30.5 pg Normal 27.0-32.0 [facility] Comment on above: Performed By: #### L 500.4050, L100.0100 ####[facility] [address] [place], [address] MCHC (RBC) [Mass/Vol] 33.1 g/dL Normal 32-36 [facility] Comment on above: Performed By: #### L 500.4050, L100.0100 ####[facility] [address] [place], [address] MCV (RBC) [Entitic vol] 92.2 fL Normal 81-99 [facility] Comment on above: Performed By: #### L 500.4050, L100.0100 ####[facility] [address] [place], [address] Monocytes/100 WBC (Bld) 11.5 % High 0-10 [facility] Comment on above: Performed By: #### L 500.4050, L100.0100 ####[facility] [address] [place], [address] Neutrophils/100 WBC (Bld) 71.7 % High 47-70 [facility] Comment on above: Performed By: #### L 500.4050, L100.0100 ####[facility] [address] [place], [address] Nucleated RBC (Bld) [#/Vol] 0 10*3/uL Normal 0-5 [facility] Comment on above: Performed By: #### L 500.4050, L100.0100 ####[facility] [address] [place], [address] Platelet mean volume (Bld) [Entitic vol] 9.1 fL Normal 6.2-12.0 [facility] Comment on above: Performed By: #### L 500.4050, L100.0100 ####[facility] [address] [place], [address] Platelets (Bld) [#/Vol] 180 10*3/uL Normal 150-450 [facility] Comment on above: Performed By: #### L 500.4050, L100.0100 ####[facility] [address] [place], [address] RBC (Bld) [#/Vol] 2.95 10*6/uL Low 4.2-5.4 [facility] Comment on above: Performed By: #### L 500.4050, L100.0100 ####[facility] [address] [place], [address] RDW SD 60.0 fl High 35.1-43.9 [facility] Comment on above: Performed By: #### L 500.4050, L100.0100 ####[facility] [address] [place], [address] WBC (Bld) [#/Vol] 3.4 10*3/uL Low 4.4-11.0 [facility] Comment on above: Performed By: #### L 500.4050, L100.0100 ####[facility] [address] [place], [address] Carbon dioxide, total [Moles /volume] in Central venous bloodOrdered By: Em Torres on 06-24-2025 CO2 [Moles/Vol] 25.2 mmol/L 21.0-32.0 [facility] Chloride assayOrdered By: Shonna Torres on 06-24-2025 Chloride [Moles/Vol] 104 mmol/L 98-108 [facility] Comprehensive Metabolic Prof ilon 06-24-2025 Albumin [Mass/Vol] 3.4 g/dL Normal 3.4-4.8 [facility] Comment on above: Performed By: #### L 500.4050, L100.0100 ####[facility] [address] [place], [address] Albumin/Globulin [Mass ratio] 1.4 {ratio} Normal 0.9-2.4 [facility] Comment on above: Performed By: #### L 500.4050, L100.0100 ####[facility] [address] [place], [address] ALK PHOS 164 U/L High 35-104 [facility] Comment on above: Performed By: #### L 500.4050, L100.0100 ####[facility] [address] [place], [address] ALT [Catalytic activity/Vol] 36 U/L High <=34 [facility] Comment on above: Performed By: #### L 500.4050, L100.0100 ####[facility] [address] [place], [address] AST [Catalytic activity/Vol] 61 U/L High <=31 [facility] Comment on above: Performed By: #### L 500.4050, L100.0100 ####[facility] [address] [place], [address] Bilirubin [Mass/Vol] 0.99 mg/dL Normal 0.00-1.30 [facility] Comment on above: Performed By: #### L 500.4050, L100.0100 ####[facility] [address] [place], [address] BUN/CRE 31.1 RATIO High 10-20 [facility] Comment on above: Performed By: #### L 500.4050, L100.0100 ####[facility] [address] [place], [address] Calcium [Mass/Vol] 9.3 mg/dL Normal 7.6-11.0 [facility] Comment on above: Performed By: #### L 500.4050, L100.0100 ####[facility] [address] [place], [address] Chloride [Moles/Vol] 104 mmol/L Normal 98-108 [facility] Comment on above: Performed By: #### L 500.4050, L100.0100 ####[facility] [address] [place], [address] CO2 [Moles/Vol] 25.2 mmol/L Normal 21.0-32.0 [facility] Comment on above: Performed By: #### L 500.4050, L100.0100 ####[facility] [address] [place], [address] Creatinine [Mass/Vol] 0.78 mg/dL Normal 0.70-1.20 [facility] Comment on above: Performed By: #### L 500.4050, L100.0100 ####[facility] [address] [place], [address] ECRCL 67.87 ml/min Normal 50-250 [facility] Comment on above: Performed By: #### L 500.4050, L100.0100 ####[facility] [address] [place], [address] GAP 10 Normal 5-15 [facility] Comment on above: Performed By: #### L 500.4050, L100.0100 ####[facility] [address] [place], [address] GFR/1.73 sq M.predicted among non-blacks MDRD (S/P/Bld) [Vol rate/Area] 82 mL/min/{1.73_m2} Normal >60 [facility] Comment on above: Result Comment: mL/m in/1.73m2 CKD-EPI Creatinine Equation (2020) Performed By: #### L 500.4050, L100.0100 ####[facility] [address] [place], [address] Globulin (S) [Mass/Vol] 2.4 g/dL Normal 2.2-4.2 [facility] Comment on above: Performed By: #### L 500.4050, L100.0100 ####[facility] [address] [place], [address] Glucose [Mass/Vol] 130 mg/dL High 70-99 [facility] Comment on above: Performed By: #### L 500.4050, L100.0100 ####[facility] [address] [place], [address] Potassium [Moles/Vol] 3.8 mmol/L Normal 3.3-5.1 [facility] Comment on above: Performed By: #### L 500.4050, L100.0100 ####[facility] [address] [place], [address] Sodium [Moles/Vol] 139 mmol/L Normal 133-145 [facility] Comment on above: Performed By: #### L 500.4050, L100.0100 ####[facility] [address] [place], [address] T PROT 5.8 g/dL Low 5.9-8.4 [facility] Comment on above: Performed By: #### L 500.4050, L100.0100 ####[facility] [address] [place], [address] Urea nitrogen [Mass/Vol] 24 mg/dL High 4-19 [facility] Comment on above: Performed By: #### L 500.4050, L100.0100 ####[facility] [address] [place], [address] Eosinophil percentageOrdered By: Em Torres on 06-24-2025 Eosinophils/100 WBC (Bld) 4.1 % 0-5 [facility] Erythrocyte distribution wid th ratioOrdered By: Em Torres on 06-24-2025 Erythrocyte distribution width (RBC) [Ratio] 17.5 % High 11.6-14.6 [facility] Erythrocyte distribution wid th standard deviationOrdered By: Em Torres on 06-24-2025 Erythrocyte distribution width (RBC) [Ratio] 60.0 fl High 35.1-43.9 [facility] Glomerular filtration rate ( GFR) estimation/1.73 sq m using serum, plasma, or whole bOrdered By: Em Torres on 06-24-2025 GFR/1.73 sq M.predicted among non-blacks MDRD (S/P/Bld) [Vol rate/Area] 82 mL/min/{1.73_m2} >60 [facility] Comment on above: mL/min/1.73m2 CKD-EP I Creatinine Equation (2020) Hematocrit Auto (Bld) [Volum e fraction]Ordered By: Em Torres on 06-24-2025 Hematocrit (Bld) [Volume fraction] 27.2 % Low 37-47 [facility] Hemoglobin measurementOrdere d By: Em Torres on 06-24-2025 Hemoglobin (Bld) [Mass/Vol] 9.0 g/dL Low 12.0-15.0 [facility] Immature granulocytes/100 WB C Auto (Bld)Ordered By: Em Torres on 06-24-2025 Immature granulocytes/100 WBC (Bld) 0.600 % 0.0-0.9 [facility] Comment on above: IG% - Immature Granu locytes (promyelocytes, myelocytes and metamyelocytes) > 1% indicates that a LEFT SHIFT is Present. Laboratory - Chemistry and C hemistry - challengeOrdered By: Em Torres on 06-24-2025 AST [Catalytic activity/Vol] 61 U/L High <32 [facility] MCV (mean corpuscular volume ) determinationOrdered By: Em Torres on 06-24-2025 MCV (RBC) [Entitic vol] 92.2 fL 81-99 [facility] Mean corpuscular hemoglobin (MCH) determinationOrdered By: [facility] on 06-24-2025 MCH (RBC) [Entitic mass] 30.5 pg 27.0-32.0 [facility] Mean corpuscular hemoglobin concentration (MCHC) determinationOrdered By: Em Torres on 06-24-2025 MCHC (RBC) [Mass/Vol] 33.1 g/dL 32-36 [facility] Mean platelet volume determi nationOrdered By: Em Torres on 06-24-2025 Platelet mean volume (Bld) [Entitic vol] 9.1 fL 6.2-12.0 [facility] Monocyte percentageOrdered B y: Em Torres on 06-24-2025 Monocytes/100 WBC (Bld) 11.5 % High 0-10 [facility] Neutrophil percentageOrdered By: Em Torres on 06-24-2025 Neutrophils/100 WBC (Bld) 71.7 % High 47-70 [facility] Nucleated red blood cell per centageOrdered By: Em Torres on 06-24-2025 Nucleated RBC/100 WBC (Bld) [Ratio] 0 % 0-5 [facility] Oncology Visit Reporton Oncology Visit Report Normal [facility] Platelet countOrdered By: Shonna Torres on 06-24-2025 Platelets (Bld) [#/Vol] 180 10*3/uL 150-450 [facility] Potassium measurement (mass/ volume)Ordered By: Em Torres on 06-24-2025 Potassium (Unsp spec) [Mass/Vol] 3.8 mmol/L 3.3-5.1 [facility] RBC Auto (Bld) [#/Vol]Ordere d By: Em Torres on 06-24-2025 RBC (Bld) [#/Vol] 2.95 10*6/uL Low 4.2-5.4 [facility] Radiation Oncology Visiton 0 06-24-2025 Radiation Oncology Visit Normal [facility] Serum creatinine measurement (mass/volume)Ordered By: Em Torres on 06-24-2025 Creatinine [Mass/Vol] 0.78 mg/dL 0.70-1.20 [facility] Serum globulin measurementOr dered By: Em Torres on 06-24-2025 Globulin (S) [Mass/Vol] 2.4 g/dL 2.2-4.2 [facility] Serum glucose measurement (m ass/volume)Ordered By: Em Torres on 06-24-2025 Glucose [Mass/Vol] 130 mg/dL High 70-99 [facility] Serum or plasma alanine ratliff otransferase (ALT) measurementOrdered By: Em Torres on 06-24-2025 ALT [Catalytic activity/Vol] 36 U/L High <35 [facility] Serum or plasma albumin mireille urement (mass/volume)Ordered By: Em Torres on 06-24-2025 Albumin [Mass/Vol] 3.4 g/dL 3.4-4.8 [facility] Serum or plasma albumin/glob ulin mass ratioOrdered By: Em Torres on 06-24-2025 Albumin/Globulin [Mass ratio] 1.4 {ratio} 0.9-2.4 [facility] Serum or plasma alkaline cristiano sphatase measurementOrdered By: Em Torres on 06-24-2025 ALP [Catalytic activity/Vol] 164 U/L High 35-104 [facility] Serum or plasma calcium mireille urement (mass/volume)Ordered By: Em Torres on 06-24-2025 Calcium [Mass/Vol] 9.3 mg/dL 7.6-11.0 [facility] Serum or plasma urea nitroge n measurement (mass/volume)Ordered By: Em Torres on 06-24-2025 Urea nitrogen [Mass/Vol] 24 mg/dL High 4-19 [facility] Sodium levelOrdered By: Deja Torres on 06-24-2025 Sodium [Moles/Vol] 139 mmol/L 133-145 [facility] Total proteinOrdered By: Americo Torres on 06-24-2025 Protein [Mass/Vol] 5.8 g/dL Low 5.9-8.4 [facility] White blood cell (WBC) count Ordered By: Em Torres on 06-24-2025 WBC (Bld) [#/Vol] 3.4 10*3/uL Low 4.4-11.0 [facility] Gastroenterology Visit Repor ton 06-17-2025 Gastroenterology Visit Report Normal [facility] Absolute lymphocyte countOrd ered By: Em Torres on 06-03-2025 Lymphocytes Auto (Unsp spec) [#/Vol] 0.38 10*3/uL Low 0.83-4.51 [facility] Absolute neutrophil countOrd ered By: Em Torres on 06-03-2025 Neutrophils (Bld) [#/Vol] 2.1 10*3/uL 2.0-7.7 [facility] Anion gap in Serum or Plasma Ordered By: Em Torres on 06-03-2025 Anion gap [Moles/Vol] 9 mmol/L 5-15 [facility] Automated lymphocyte count a s percentage of total leukocytesOrdered By: Em Torres on 06-03-2025 Lymphocytes/100 WBC Auto (Unsp spec) 12.2 % Low 19-41 [facility] BUN/creatinine ratioOrdered By: Em Torres on 06-03-2025 Urea nitrogen/Creatinine [Mass ratio] 26.2 mg/mg High 10-20 [facility] Basophil percentageOrdered B y: Em Torres on 06-03-2025 Basophils/100 WBC (Bld) 1.6 % High 0-1 [facility] Bilirubin, totalOrdered By: Em Torres on 06-03-2025 Bilirubin [Mass/Vol] 1.01 mg/dL 0.00-1.30 [facility] CBC W/Diff, Automatedon 05-21 Absolute Lymph 0.38 X10 3/uL Low 0.83-4.51 [facility] Comment on above: Performed By: #### L 500.4050, L100.0100 ####[facility] [address] [place], [address] Absolute Neut 2.1 X10 3/uL Normal 2.0-7.7 [facility] Comment on above: Performed By: #### L 500.4050, L100.0100 ####[facility] [address] [place], [address] Basophils/100 WBC (Bld) 1.6 % High 0-1 [facility] Comment on above: Performed By: #### L 500.4050, L100.0100 ####[facility] [address] [place], [address] Eosinophils/100 WBC (Bld) 4.8 % Normal 0-5 [facility] Comment on above: Performed By: #### L 500.4050, L100.0100 ####[facility] [address] [place], [address] Erythrocyte distribution width (RBC) [Ratio] 16.4 % High 11.6-14.6 [facility] Comment on above: Performed By: #### L 500.4050, L100.0100 ####[facility] [address] [place], [address] Hematocrit (Bld) [Volume fraction] 29.7 % Low 37-47 [facility] Comment on above: Performed By: #### L 500.4050, L100.0100 ####[facility] [address] [place], [address] Hemoglobin (Bld) [Mass/Vol] 9.7 g/dL Low 12.0-15.0 [facility] Comment on above: Performed By: #### L 500.4050, L100.0100 ####[facility] [address] [place], [address] IG% 0.300 Normal 0.0-0.9 [facility] Comment on above: Result Comment: IG% - Immature Granulocytes (promyelocytes, myelocytes andmetamyelocytes) > 1% indicates that a LEFT SHIFT is Present. Performed By: #### L 500.4050, L100.0100 ####[facility] [address] [place], [address] Lymphocytes/100 WBC (Bld) 12.2 % Low 19-41 [facility] Comment on above: Performed By: #### L 500.4050, L100.0100 ####[facility] [address] [place], [address] MCH (RBC) [Entitic mass] 30.0 pg Normal 27.0-32.0 [facility] Comment on above: Performed By: #### L 500.4050, L100.0100 ####[facility] [address] [place], [address] MCHC (RBC) [Mass/Vol] 32.7 g/dL Normal 32-36 [facility] Comment on above: Performed By: #### L 500.4050, L100.0100 ####[facility] [address] [place], [address] MCV (RBC) [Entitic vol] 92.0 fL Normal 81-99 [facility] Comment on above: Performed By: #### L 500.4050, L100.0100 ####[facility] [address] [place], [address] Monocytes/100 WBC (Bld) 14.5 % High 0-10 [facility] Comment on above: Performed By: #### L 500.4050, L100.0100 ####[facility] [address] [place], [address] Neutrophils/100 WBC (Bld) 66.6 % Normal 47-70 [facility] Comment on above: Performed By: #### L 500.4050, L100.0100 ####[facility] [address] [place], [address] Nucleated RBC (Bld) [#/Vol] 0 10*3/uL Normal 0-5 [facility] Comment on above: Performed By: #### L 500.4050, L100.0100 ####[facility] [address] [place], [address] Platelet mean volume (Bld) [Entitic vol] 9.0 fL Normal 6.2-12.0 [facility] Comment on above: Performed By: #### L 500.4050, L100.0100 ####[facility] [address] [place], [address] Platelets (Bld) [#/Vol] 168 10*3/uL Normal 150-450 [facility] Comment on above: Performed By: #### L 500.4050, L100.0100 ####[facility] [address] [place], [address] RBC (Bld) [#/Vol] 3.23 10*6/uL Low 4.2-5.4 [facility] Comment on above: Performed By: #### L 500.4050, L100.0100 ####[facility] [address] [place], [address] RDW SD 54.7 fl High 35.1-43.9 [facility] Comment on above: Performed By: #### L 500.4050, L100.0100 ####[facility] [address] [place], [address] WBC (Bld) [#/Vol] 3.1 10*3/uL Low 4.4-11.0 [facility] Comment on above: Performed By: #### L 500.4050, L100.0100 ####[facility] [address] [place], [address] Carbon dioxide, total [Moles /volume] in Central venous bloodOrdered By: Em Torres on 06-03-2025 CO2 [Moles/Vol] 26.9 mmol/L 21.0-32.0 [facility] Chloride assayOrdered By: Shonna Torres on 06-03-2025 Chloride [Moles/Vol] 101 mmol/L 98-108 [facility] Comprehensive Metabolic Prof ilon 06-03-2025 Albumin [Mass/Vol] 3.4 g/dL Normal 3.4-4.8 [facility] Comment on above: Performed By: #### L 500.4050, L100.0100 ####[facility] [address] [place], [address] Albumin/Globulin [Mass ratio] 1.4 {ratio} Normal 0.9-2.4 [facility] Comment on above: Performed By: #### L 500.4050, L100.0100 ####[facility] [address] [place], [address] ALK PHOS 150 U/L High 35-104 [facility] Comment on above: Performed By: #### L 500.4050, L100.0100 ####[facility] [address] [place], [address] ALT [Catalytic activity/Vol] 34 U/L Normal <=34 [facility] Comment on above: Performed By: #### L 500.4050, L100.0100 ####[facility] [address] [place], [address] AST [Catalytic activity/Vol] 55 U/L High <=31 [facility] Comment on above: Performed By: #### L 500.4050, L100.0100 ####[facility] [address] [place], [address] Bilirubin [Mass/Vol] 1.01 mg/dL Normal 0.00-1.30 [facility] Comment on above: Performed By: #### L 500.4050, L100.0100 ####[facility] [address] [place], [address] BUN/CRE 26.2 RATIO High 10-20 [facility] Comment on above: Performed By: #### L 500.4050, L100.0100 ####[facility] [address] [place], [address] Calcium [Mass/Vol] 9.4 mg/dL Normal 7.6-11.0 [facility] Comment on above: Performed By: #### L 500.4050, L100.0100 ####[facility] [address] [place], [address] Chloride [Moles/Vol] 101 mmol/L Normal 98-108 [facility] Comment on above: Performed By: #### L 500.4050, L100.0100 ####[facility] [address] [place], [address] CO2 [Moles/Vol] 26.9 mmol/L Normal 21.0-32.0 [facility] Comment on above: Performed By: #### L 500.4050, L100.0100 ####[facility] [address] [place], [address] Creatinine [Mass/Vol] 0.72 mg/dL Normal 0.70-1.20 [facility] Comment on above: Performed By: #### L 500.4050, L100.0100 ####[facility] [address] [place], [address] ECRCL 67.22 ml/min Normal 50-250 [facility] Comment on above: Performed By: #### L 500.4050, L100.0100 ####[facility] [address] [place], [address] GAP 9 Normal 5-15 [facility] Comment on above: Performed By: #### L 500.4050, L100.0100 ####[facility] [address] [place], [address] GFR/1.73 sq M.predicted among non-blacks MDRD (S/P/Bld) [Vol rate/Area] 90 mL/min/{1.73_m2} Normal >60 [facility] Comment on above: Result Comment: mL/m in/1.73m2 CKD-EPI Creatinine Equation (2020) Performed By: #### L 500.4050, L100.0100 ####[facility] [address] [place], [address] Globulin (S) [Mass/Vol] 2.5 g/dL Normal 2.2-4.2 [facility] Comment on above: Performed By: #### L 500.4050, L100.0100 ####[facility] [address] [place], [address] Glucose [Mass/Vol] 108 mg/dL High 70-99 [facility] Comment on above: Performed By: #### L 500.4050, L100.0100 ####[facility] [address] [place], [address] Potassium [Moles/Vol] 3.7 mmol/L Normal 3.3-5.1 [facility] Comment on above: Performed By: #### L 500.4050, L100.0100 ####[facility] [address] [place], [address] Sodium [Moles/Vol] 137 mmol/L Normal 133-145 [facility] Comment on above: Performed By: #### L 500.4050, L100.0100 ####[facility] [address] [place], [address] T PROT 5.8 g/dL Low 5.9-8.4 [facility] Comment on above: Performed By: #### L 500.4050, L100.0100 ####[facility] [address] [place], [address] Urea nitrogen [Mass/Vol] 19 mg/dL Normal 4-19 [facility] Comment on above: Performed By: #### L 500.4050, L100.0100 ####[facility] [address] [place], [address] Eosinophil percentageOrdered By: Em Torres on 06-03-2025 Eosinophils/100 WBC (Bld) 4.8 % 0-5 [facility] Erythrocyte distribution wid th ratioOrdered By: Em Torres on 06-03-2025 Erythrocyte distribution width (RBC) [Ratio] 16.4 % High 11.6-14.6 [facility] Erythrocyte distribution wid th standard deviationOrdered By: Em Torres on 06-03-2025 Erythrocyte distribution width (RBC) [Ratio] 54.7 fl High 35.1-43.9 [facility] Glomerular filtration rate ( GFR) estimation/1.73 sq m using serum, plasma, or whole bOrdered By: Em Torres on 06-03-2025 GFR/1.73 sq M.predicted among non-blacks MDRD (S/P/Bld) [Vol rate/Area] 90 mL/min/{1.73_m2} >60 [facility] Comment on above: mL/min/1.73m2 CKD-EP I Creatinine Equation (2020) Hematocrit Auto (Bld) [Volum e fraction]Ordered By: Em Torres on 06-03-2025 Hematocrit (Bld) [Volume fraction] 29.7 % Low 37-47 [facility] Hemoglobin measurementOrdere d By: Em Torres on 06-03-2025 Hemoglobin (Bld) [Mass/Vol] 9.7 g/dL Low 12.0-15.0 [facility] Immature granulocytes/100 WB C Auto (Bld)Ordered By: Em Torres on 06-03-2025 Immature granulocytes/100 WBC (Bld) 0.300 % 0.0-0.9 [facility] Comment on above: IG% - Immature Granu locytes (promyelocytes, myelocytes and metamyelocytes) > 1% indicates that a LEFT SHIFT is Present. Laboratory - Chemistry and C hemistry - challengeOrdered By: Em Torres on 06-03-2025 AST [Catalytic activity/Vol] 55 U/L High <32 [facility] MCV (mean corpuscular volume ) determinationOrdered By: Em Torres on 06-03-2025 MCV (RBC) [Entitic vol] 92.0 fL 81-99 [facility] Mean corpuscular hemoglobin (MCH) determinationOrdered By: Em Torres on 06-03-2025 MCH (RBC) [Entitic mass] 30.0 pg 27.0-32.0 [facility] Mean corpuscular hemoglobin concentration (MCHC) determinationOrdered By: Em Torres on 06-03-2025 MCHC (RBC) [Mass/Vol] 32.7 g/dL 32-36 [facility] Mean platelet volume determi nationOrdered By: Em Torres on 06-03-2025 Platelet mean volume (Bld) [Entitic vol] 9.0 fL 6.2-12.0 [facility] Monocyte percentageOrdered B y: Em Torres on 06-03-2025 Monocytes/100 WBC (Bld) 14.5 % High 0-10 [facility] Neutrophil percentageOrdered By: Em Torres on 06-03-2025 Neutrophils/100 WBC (Bld) 66.6 % 47-70 [facility] Nucleated red blood cell per centageOrdered By: Em Torres on 06-03-2025 Nucleated RBC/100 WBC (Bld) [Ratio] 0 % 0-5 [facility] Oncology Visit Reporton 08 Oncology Visit Report Normal [facility] Platelet countOrdered By: Shonna Torres on 06-03-2025 Platelets (Bld) [#/Vol] 168 10*3/uL 150-450 [facility] Potassium measurement (mass/ volume)Ordered By: Em Torres on 06-03-2025 Potassium (Unsp spec) [Mass/Vol] 3.7 mmol/L 3.3-5.1 [facility] RBC Auto (Bld) [#/Vol]Ordere d By: Em Torres on 06-03-2025 RBC (Bld) [#/Vol] 3.23 10*6/uL Low 4.2-5.4 [facility] Serum creatinine measurement (mass/volume)Ordered By: Em Torres on 06-03-2025 Creatinine [Mass/Vol] 0.72 mg/dL 0.70-1.20 [facility] Serum globulin measurementOr dered By: Em Torres on 06-03-2025 Globulin (S) [Mass/Vol] 2.5 g/dL 2.2-4.2 [facility] Serum glucose measurement (m ass/volume)Ordered By: Em Torres on 06-03-2025 Glucose [Mass/Vol] 108 mg/dL High 70-99 [facility] Serum or plasma alanine ratliff otransferase (ALT) measurementOrdered By: Em Torres on 06-03-2025 ALT [Catalytic activity/Vol] 34 U/L <35 [facility] Serum or plasma albumin mireille urement (mass/volume)Ordered By: Em Torres on 06-03-2025 Albumin [Mass/Vol] 3.4 g/dL 3.4-4.8 [facility] Serum or plasma albumin/glob ulin mass ratioOrdered By: Em Torres on 06-03-2025 Albumin/Globulin [Mass ratio] 1.4 {ratio} 0.9-2.4 [facility] Serum or plasma alkaline cristiano sphatase measurementOrdered By: Em Torres on 06-03-2025 ALP [Catalytic activity/Vol] 150 U/L High 35-104 [facility] Serum or plasma calcium mireille urement (mass/volume)Ordered By: Em Torres on 06-03-2025 Calcium [Mass/Vol] 9.4 mg/dL 7.6-11.0 [facility] Serum or plasma urea nitroge n measurement (mass/volume)Ordered By: Em Torres on 06-03-2025 Urea nitrogen [Mass/Vol] 19 mg/dL 4-19 [facility] Sodium levelOrdered By: Deja Torres on 06-03-2025 Sodium [Moles/Vol] 137 mmol/L 133-145 [facility] Total proteinOrdered By: Americo Torres on 06-03-2025 Protein [Mass/Vol] 5.8 g/dL Low 5.9-8.4 [facility] White blood cell (WBC) count Ordered By: Em Torres on 06-03-2025 WBC (Bld) [#/Vol] 3.1 10*3/uL Low 4.4-11.0 [facility] Absolute lymphocyte countOrd ered By: Em Torres on 05-13-2025 Lymphocytes Auto (Unsp spec) [#/Vol] 0.38 10*3/uL Low 0.83-4.51 [facility] Absolute neutrophil countOrd ered By: Em Torres on 05-13-2025 Neutrophils (Bld) [#/Vol] 2.3 10*3/uL 2.0-7.7 [facility] Anion gap in Serum or Plasma Ordered By: Em Torres on 05-13-2025 Anion gap [Moles/Vol] 8 mmol/L 5-15 [facility] Automated lymphocyte count a s percentage of total leukocytesOrdered By: Em Torres on 05-13-2025 Lymphocytes/100 WBC Auto (Unsp spec) 11.6 % Low 19-41 [facility] BUN/creatinine ratioOrdered By: Em Torres on 05-13-2025 Urea nitrogen/Creatinine [Mass ratio] 32.6 mg/mg High 10-20 [facility] Basophil percentageOrdered B y: Em Torres on 05-13-2025 Basophils/100 WBC (Bld) 1.2 % High 0-1 [facility] Bilirubin, totalOrdered By: Em Torres on 05-13-2025 Bilirubin [Mass/Vol] 0.78 mg/dL 0.00-1.30 [facility] CBC W/Diff, Automatedon 04-21 Absolute Lymph 0.38 X10 3/uL Low 0.83-4.51 [facility] Comment on above: Performed By: #### L 100.0100, L500.4050 ####[facility] [address] [place], [address] Absolute Neut 2.3 X10 3/uL Normal 2.0-7.7 [facility] Comment on above: Performed By: #### L 100.0100, L500.4050 ####[facility] [address] [place], [address] Basophils/100 WBC (Bld) 1.2 % High 0-1 [facility] Comment on above: Performed By: #### L 100.0100, L500.4050 ####[facility] [address] [place], [address] Eosinophils/100 WBC (Bld) 4.3 % Normal 0-5 [facility] Comment on above: Performed By: #### L 100.0100, L500.4050 ####[facility] [address] [place], [address] Erythrocyte distribution width (RBC) [Ratio] 15.8 % High 11.6-14.6 [facility] Comment on above: Performed By: #### L 100.0100, L500.4050 ####[facility] [address] [place], [address] Hematocrit (Bld) [Volume fraction] 30.5 % Low 37-47 [facility] Comment on above: Performed By: #### L 100.0100, L500.4050 ####[facility] [address] [place], [address] Hemoglobin (Bld) [Mass/Vol] 10.0 g/dL Low 12.0-15.0 [facility] Comment on above: Performed By: #### L 100.0100, L500.4050 ####[facility] [address] [place], [address] IG% 0.300 Normal 0.0-0.9 [facility] Comment on above: Result Comment: IG% - Immature Granulocytes (promyelocytes, myelocytes andmetamyelocytes) > 1% indicates that a LEFT SHIFT is Present. Performed By: #### L 100.0100, L500.4050 ####[facility] [address] [place], [address] Lymphocytes/100 WBC (Bld) 11.6 % Low 19-41 [facility] Comment on above: Performed By: #### L 100.0100, L500.4050 ####[facility] [address] [place], [address] MCH (RBC) [Entitic mass] 29.9 pg Normal 27.0-32.0 [facility] Comment on above: Performed By: #### L 100.0100, L500.4050 ####[facility] [address] [place], [address] MCHC (RBC) [Mass/Vol] 32.8 g/dL Normal 32-36 [facility] Comment on above: Performed By: #### L 100.0100, L500.4050 ####[facility] [address] [place], [address] MCV (RBC) [Entitic vol] 91.3 fL Normal 81-99 [facility] Comment on above: Performed By: #### L 100.0100, L500.4050 ####[facility] [address] [place], [address] Monocytes/100 WBC (Bld) 13.4 % High 0-10 [facility] Comment on above: Performed By: #### L 100.0100, L500.4050 ####[facility] [address] [place], [address] Neutrophils/100 WBC (Bld) 69.2 % Normal 47-70 [facility] Comment on above: Performed By: #### L 100.0100, L500.4050 ####[facility] [address] [place], [address] Nucleated RBC (Bld) [#/Vol] 0 10*3/uL Normal 0-5 [facility] Comment on above: Performed By: #### L 100.0100, L500.4050 ####[facility] [address] [place], [address] Platelet mean volume (Bld) [Entitic vol] 8.8 fL Normal 6.2-12.0 [facility] Comment on above: Performed By: #### L 100.0100, L500.4050 ####[facility] [address] [place], [address] Platelets (Bld) [#/Vol] 160 10*3/uL Normal 150-450 [facility] Comment on above: Performed By: #### L 100.0100, L500.4050 ####[facility] [address] [place], [address] RBC (Bld) [#/Vol] 3.34 10*6/uL Low 4.2-5.4 [facility] Comment on above: Performed By: #### L 100.0100, L500.4050 ####[facility] [address] [place], [address] RDW SD 53.1 fl High 35.1-43.9 [facility] Comment on above: Performed By: #### L 100.0100, L500.4050 ####[facility] [address] [place], [address] WBC (Bld) [#/Vol] 3.3 10*3/uL Low 4.4-11.0 [facility] Comment on above: Performed By: #### L 100.0100, L500.4050 ####[facility] [address] [place], [address] Carbon dioxide, total [Moles /volume] in Central venous bloodOrdered By: Em Torres on 05-13-2025 CO2 [Moles/Vol] 26.8 mmol/L 21.0-32.0 [facility] Chloride assayOrdered By: Shonna Torres on 05-13-2025 Chloride [Moles/Vol] 103 mmol/L 98-108 [facility] Comprehensive Metabolic Prof ilon 05-13-2025 Albumin [Mass/Vol] 3.2 g/dL Low 3.4-4.8 [facility] Comment on above: Performed By: #### L 100.0100, L500.4050 ####[facility] [address] [place], [address] Albumin/Globulin [Mass ratio] 1.3 {ratio} Normal 0.9-2.4 [facility] Comment on above: Performed By: #### L 100.0100, L500.4050 ####[facility] [address] [place], [address] ALK PHOS 133 U/L High 35-104 [facility] Comment on above: Performed By: #### L 100.0100, L500.4050 ####[facility] [address] [place], [address] ALT [Catalytic activity/Vol] 31 U/L Normal <=34 [facility] Comment on above: Performed By: #### L 100.0100, L500.4050 ####[facility] [address] [place], [address] AST [Catalytic activity/Vol] 60 U/L High <=31 [facility] Comment on above: Performed By: #### L 100.0100, L500.4050 ####[facility] [address] [place], [address] Bilirubin [Mass/Vol] 0.78 mg/dL Normal 0.00-1.30 [facility] Comment on above: Performed By: #### L 100.0100, L500.4050 ####[facility] [address] [place], [address] BUN/CRE 32.6 RATIO High 10-20 [facility] Comment on above: Performed By: #### L 100.0100, L500.4050 ####[facility] [address] [place], [address] Calcium [Mass/Vol] 9.3 mg/dL Normal 7.6-11.0 [facility] Comment on above: Performed By: #### L 100.0100, L500.4050 ####[facility] [address] [place], [address] Chloride [Moles/Vol] 103 mmol/L Normal 98-108 [facility] Comment on above: Performed By: #### L 100.0100, L500.4050 ####[facility] [address] [place], [address] CO2 [Moles/Vol] 26.8 mmol/L Normal 21.0-32.0 [facility] Comment on above: Performed By: #### L 100.0100, L500.4050 ####[facility] [address] [place], [address] Creatinine [Mass/Vol] 0.66 mg/dL Low 0.70-1.20 [facility] Comment on above: Performed By: #### L 100.0100, L500.4050 ####[facility] [address] [place], [address] ECRCL 67.22 ml/min Normal 50-250 [facility] Comment on above: Performed By: #### L 100.0100, L500.4050 ####[facility] [address] [place], [address] GAP 8 Normal 5-15 [facility] Comment on above: Performed By: #### L 100.0100, L500.4050 ####[facility] [address] [place], [address] GFR/1.73 sq M.predicted among non-blacks MDRD (S/P/Bld) [Vol rate/Area] 94 mL/min/{1.73_m2} Normal >60 [facility] Comment on above: Result Comment: mL/m in/1.73m2 CKD-EPI Creatinine Equation (2020) Performed By: #### L 100.0100, L500.4050 ####[facility] [address] [place], [address] Globulin (S) [Mass/Vol] 2.4 g/dL Normal 2.2-4.2 [facility] Comment on above: Performed By: #### L 100.0100, L500.4050 ####[facility] [address] [place], [address] Glucose [Mass/Vol] 99 mg/dL Normal 70-99 [facility] Comment on above: Performed By: #### L 100.0100, L500.4050 ####[facility] [address] [place], [address] Potassium [Moles/Vol] 3.6 mmol/L Normal 3.3-5.1 [facility] Comment on above: Performed By: #### L 100.0100, L500.4050 ####[facility] [address] [place], [address] Sodium [Moles/Vol] 138 mmol/L Normal 133-145 [facility] Comment on above: Performed By: #### L 100.0100, L500.4050 ####[facility] [address] [place], [address] T PROT 5.7 g/dL Low 5.9-8.4 [facility] Comment on above: Performed By: #### L 100.0100, L500.4050 ####[facility] [address] [place], [address] Urea nitrogen [Mass/Vol] 21 mg/dL High 4-19 [facility] Comment on above: Performed By: #### L 100.0100, L500.4050 ####[facility] [address] [place], [address] Eosinophil percentageOrdered By: Em Torres on 05-13-2025 Eosinophils/100 WBC (Bld) 4.3 % 0-5 [facility] Erythrocyte distribution wid th ratioOrdered By: Em Torres on 05-13-2025 Erythrocyte distribution width (RBC) [Ratio] 15.8 % High 11.6-14.6 [facility] Erythrocyte distribution wid th standard deviationOrdered By: [facility] on 05-13-2025 Erythrocyte distribution width (RBC) [Ratio] 53.1 fl High 35.1-43.9 [facility] Glomerular filtration rate ( GFR) estimation/1.73 sq m using serum, plasma, or whole bOrdered By: Em Torres on 05-13-2025 GFR/1.73 sq M.predicted among non-blacks MDRD (S/P/Bld) [Vol rate/Area] 94 mL/min/{1.73_m2} >60 [facility] Comment on above: mL/min/1.73m2 CKD-EP I Creatinine Equation (2020) Hematocrit Auto (Bld) [Volum e fraction]Ordered By: Em Torres on 05-13-2025 Hematocrit (Bld) [Volume fraction] 30.5 % Low 37-47 [facility] Hemoglobin measurementOrdere d By: Em Torres on 05-13-2025 Hemoglobin (Bld) [Mass/Vol] 10.0 g/dL Low 12.0-15.0 [facility] Immature granulocytes/100 WB C Auto (Bld)Ordered By: Em Torres on 05-13-2025 Immature granulocytes/100 WBC (Bld) 0.300 % 0.0-0.9 [facility] Comment on above: IG% - Immature Granu locytes (promyelocytes, myelocytes and metamyelocytes) > 1% indicates that a LEFT SHIFT is Present. Laboratory - Chemistry and C hemistry - challengeOrdered By: Em Torres on 05-13-2025 AST [Catalytic activity/Vol] 60 U/L High <32 [facility] MCV (mean corpuscular volume ) determinationOrdered By: Em Torres on 05-13-2025 MCV (RBC) [Entitic vol] 91.3 fL 81-99 [facility] Magnesiumon 05-13-2025 Magnesium [Mass/Vol] 1.4 mg/dL Low 1.5-2.2 [facility] Comment on above: Performed By: #### L 501.5200, L501.2300 ####[facility] [address] [place], [place], [address] Magnesium measurement (mass/ volume)Ordered By: Em Torres on 05-13-2025 Magnesium (Unsp spec) [Mass/Vol] 1.4 mg/dL Low 1.5-2.2 [facility] Mean corpuscular hemoglobin (MCH) determinationOrdered By: Em Torres on 05-13-2025 MCH (RBC) [Entitic mass] 29.9 pg 27.0-32.0 [facility] Mean corpuscular hemoglobin concentration (MCHC) determinationOrdered By: Em Torres on 05-13-2025 MCHC (RBC) [Mass/Vol] 32.8 g/dL 32-36 [facility] Mean platelet volume determi nationOrdered By: Em Torres on 05-13-2025 Platelet mean volume (Bld) [Entitic vol] 8.8 fL 6.2-12.0 [facility] Monocyte percentageOrdered B y: Em Torres on 05-13-2025 Monocytes/100 WBC (Bld) 13.4 % High 0-10 [facility] Neutrophil percentageOrdered By: Em Torres on 05-13-2025 Neutrophils/100 WBC (Bld) 69.2 % 47-70 [facility] Nucleated red blood cell per centageOrdered By: Em Torres on 05-13-2025 Nucleated RBC/100 WBC (Bld) [Ratio] 0 % 0-5 [facility] Oncology Visit Reporton 04-21 Oncology Visit Report Normal [facility] Phosphoruson 05-13-2025 Phosphate [Mass/Vol] 3.1 mg/dL Normal 2.7-4.5 [facility] Comment on above: Performed By: #### L 501.5200, L501.2300 ####[facility] [address] [place], [address] Platelet countOrdered By: Shonna Trores on 05-13-2025 Platelets (Bld) [#/Vol] 160 10*3/uL 150-450 [facility] Potassium measurement (mass/ volume)Ordered By: Em Torres on 05-13-2025 Potassium (Unsp spec) [Mass/Vol] 3.6 mmol/L 3.3-5.1 [facility] RBC Auto (Bld) [#/Vol]Ordere d By: Em Torres on 05-13-2025 RBC (Bld) [#/Vol] 3.34 10*6/uL Low 4.2-5.4 [facility] Serum creatinine measurement (mass/volume)Ordered By: Em Torres on 05-13-2025 Creatinine [Mass/Vol] 0.66 mg/dL Low 0.70-1.20 [facility] Serum globulin measurementOr dered By: Em Torres on 05-13-2025 Globulin (S) [Mass/Vol] 2.4 g/dL 2.2-4.2 [facility] Serum glucose measurement (m ass/volume)Ordered By: Em Torres on 05-13-2025 Glucose [Mass/Vol] 99 mg/dL 70-99 [facility] Serum or plasma alanine ratliff otransferase (ALT) measurementOrdered By: Em Torres on 05-13-2025 ALT [Catalytic activity/Vol] 31 U/L <35 [facility] Serum or plasma albumin mireille urement (mass/volume)Ordered By: Em Torres on 05-13-2025 Albumin [Mass/Vol] 3.2 g/dL Low 3.4-4.8 [facility] Serum or plasma albumin/glob ulin mass ratioOrdered By: Em Torres on 05-13-2025 Albumin/Globulin [Mass ratio] 1.3 {ratio} 0.9-2.4 [facility] Serum or plasma alkaline cristiano sphatase measurementOrdered By: Em Torres on 05-13-2025 ALP [Catalytic activity/Vol] 133 U/L High 35-104 [facility] Serum or plasma calcium mireille urement (mass/volume)Ordered By: Em Torres on 05-13-2025 Calcium [Mass/Vol] 9.3 mg/dL 7.6-11.0 [facility] Serum or plasma urea nitroge n measurement (mass/volume)Ordered By: Em Torres on 05-13-2025 Urea nitrogen [Mass/Vol] 21 mg/dL High 4-19 [facility] Sodium levelOrdered By: Deja Torres on 05-13-2025 Sodium [Moles/Vol] 138 mmol/L 133-145 [facility] Total proteinOrdered By: Americo Torres on 05-13-2025 Protein [Mass/Vol] 5.7 g/dL Low 5.9-8.4 [facility] White blood cell (WBC) count Ordered By: Em Torres on 05-13-2025 WBC (Bld) [#/Vol] 3.3 10*3/uL Low 4.4-11.0 [facility] Echocardiogram study reportO rdered By: Capo Xiong on 05-10-2025 Study report [facility] [address] [place] [address] ONC Echo Complete 05/09/25 2301 MR#: [id number] Acct: [id number] Name: LYSSA VASQUEZ Rep #:[id number] : 1955 69 From: Capo Felix Attending Dr: LINDSEY KendrickC Status: REG CLI Ordering Dr: Alley Walden NP DIALYSIS CHIEF EQUIPMENT TECHNICIAN-C Da te: 05/10/25 Location: [facility] Sex: F C Admitted: Reason For Study Reason For Study: CARDIO TOXIC DRUG Procedure This was a 2D Doppler, Color Flow transthoracic echocardiogram. Myocardial strain analysis was performed in this exam to aid in the assessment of cardiac function. Exam performed in department. Left Ventricle Normal LV size. The left ventricular ejection fraction is 60 %. No regional wallmotion abnormalities noted. Right Ventricle Normal RV size. Normal systolic function. Atria Normal left atrium. Normal right atrium. Mitral Valve Bileaflet diffuse mitral valve thickening. Equivocal mitral valve prolapse. Tricuspid Valve Normal tricuspid valve. Aortic Valve Trisinus/trileaflet aortic valve. Pulmonic Valve Normal pulmonic valve. Great Vessels Normal aortic root. The pulmonary artery is normal size. Inferior vena cava collapse with respiration. Pericardium/Pleural No pericardial effusion. MMode/2D Measurements & Calculations LVIDd: 4.3 cm IVSd: 0.96 cm LVOT diam: 2.0 cm LVIDs: 2.9 cm LVPWd: 1.0 cm LVOT area: 3.1 cm2 RVDd: 3.2 cm FS: 32.7 % Ao root diam: 3.2 cm LAV(MOD-bp): 52.2 ml LVAd ap4: 24.8 cm2 LAV(MOD-bp) Indexed: 28.7 ml/m2 LVLd ap4: 7.4 cm LAV(MOD-sp2): 53.3 ml EDV(MOD-sp4): 69.5 ml LAV(MOD-sp4): 47.4 ml EDV(sp4-el): 70.8 ml LVAs ap4: 14.3 cm2 LVLs ap4: 5.8 cm ESV(MOD-sp4): 30.2 ml ESV(sp4-el): 30.0 ml EF(MOD-sp4): 56.5 % EF(sp4-el): 57.7 % SV(MOD-sp4): 39.3 ml SV(sp4-el): 40.8 ml LA A4 area: 17.7 cm2 SI(MOD-sp4): 21.6 ml/m2 LA dimension(2D): 3.8 cm RA A4 area: 15.7 cm2 Time Measurements MV dec time: 0.24 sec Doppler Measurements & Calculations MV E max conner: 97.0 cm/sec Lat Peak E' Conner: 8.3 cm/sec Med Peak E' Conner: 5.7 cm/sec MV A max conner: 90.9 cm/sec E/E' lat: 11.7 E/E' med: 17.1 MV E/A: 1.1 _ MV V2 max: 77.7 cm/sec Ao V2 max: 134.8 cm/sec MV max P.4 mmHg MV dec slope: 439.5 cm/sec2 Ao max P.5 mmHg MV V2 mean: 56.1 cm/sec Ao V2 mean: 101.9 cm/sec MV mean P.3 mmHg Ao mean P.7 mmHg MV V2 VTI: 23.0 cm Ao V2 VTI: 32.0 cm AV (velocity ratio): 1.0 MVA(VTI): 4.3 cm2 CANDACE(I,D): 3.1 cm2 CANDACE(V,D): 3.1 cm2 LV V1 max: 136.3 cm/sec SV(LVOT): 99.4 ml LV V1 max P.4 mmHg LV V1 mean P.5 mmHg LV V1 mean: 100.7 cm/sec LV V1 VTI: 32.0 cm ECHO/ONC Echo Complete Interpretation Summary Normal LV size. The left ventricular ejection fraction is 60 %. Bileaflet diffuse mitral valve thickening. Equivocal mitral valve prolapse. The global longitudinal strain is normal. The global longitudinal strain = -18.8% (normal). ___ Ordering Physician: Alley Walden Referring Physician: Alley Walden Performed By: Hattie Pino RCS 05/10/251731 Date _ Capo Xiong MD CC: SKYLA Walden; Dr. Lex Bryant, DO ~ Date Dictated: 05/09/252300 Date Transcribed: 05/10/251731 Sailing Officer: Signed [facility] Work Phone: ONC Echo Completeon 05-10-20 ONC Echo Complete Normal [facility] Basic Metabolic Profile (BMP )on 04-29-2025 BUN/CRE 22.7 RATIO High 08-09 [facility] Comment on above: Performed By: #### L 500.2500 ####[facility] [address] [place], [address] Calcium [Mass/Vol] 9.1 mg/dL Normal 7.6-11.0 [facility] Comment on above: Performed By: #### L 500.2500 ####[facility] [address] [place], [address] Chloride [Moles/Vol] 100 mmol/L Normal 98-108 [facility] Comment on above: Performed By: #### L 500.2500 ####[facility] [address] [place], [address] CO2 [Moles/Vol] 27.3 mmol/L Normal 21.0-32.0 [facility] Comment on above: Performed By: #### L 500.2500 ####[facility] [address] [place], [address] Creatinine [Mass/Vol] 0.71 mg/dL Normal 0.70-1.20 [facility] Comment on above: Performed By: #### L 500.2500 ####[facility] [address] [place], [address] ECRCL 67.75 ml/min Normal 50-250 [facility] Comment on above: Performed By: #### L 500.2500 ####[facility] [address] [place], [address] GAP 10 Normal 5-15 [facility] Comment on above: Performed By: #### L 500.2500 ####[facility] [address] [place], [address] GFR/1.73 sq M.predicted among non-blacks MDRD (S/P/Bld) [Vol rate/Area] 92 mL/min/{1.73_m2} Normal >60 [facility] Comment on above: Result Comment: mL/m in/1.73m2 CKD-EPI Creatinine Equation (2020) Performed By: #### L 500.2500 ####[facility] [address] [place], [address] Glucose [Mass/Vol] 89 mg/dL Normal 70-99 [facility] Comment on above: Performed By: #### L 500.2500 ####[facility] [address] [place], [address] Potassium [Moles/Vol] 3.3 mmol/L Normal 3.3-5.1 [facility] Comment on above: Performed By: #### L 500.2500 ####[facility] [address] [place], [address] Sodium [Moles/Vol] 137 mmol/L Normal 133-145 [facility] Comment on above: Performed By: #### L 500.2500 ####[facility] [address] [place], [place], [address] Urea nitrogen [Mass/Vol] 16 mg/dL Normal 4-19 [facility] Comment on above: Performed By: #### L 500.2500 ####[facility] [address] [place], [place], [address] Absolute lymphocyte countOrd ered By: Em Torres on 04-22-2025 Lymphocytes Auto (Unsp spec) [#/Vol] 0.42 10*3/uL Low 0.83-4.51 [facility] Absolute neutrophil countOrd ered By: Em Torres on 04-22-2025 Neutrophils (Bld) [#/Vol] 1.8 10*3/uL Low 2.0-7.7 [facility] Anion gap in Serum or Plasma Ordered By: Em Torres on 04-22-2025 Anion gap [Moles/Vol] 8 mmol/L 5-15 [facility] Automated lymphocyte count a s percentage of total leukocytesOrdered By: Em Torres on 04-22-2025 Lymphocytes/100 WBC Auto (Unsp spec) 15.2 % Low 19-41 [facility] BUN/creatinine ratioOrdered By: Em Torres on 04-22-2025 Urea nitrogen/Creatinine [Mass ratio] 23.5 mg/mg High 10-20 [facility] Basophil percentageOrdered B y: Em Torres on 04-22-2025 Basophils/100 WBC (Bld) 1.4 % High 0-1 [facility] Bilirubin, totalOrdered By: Em Torres on 04-22-2025 Bilirubin [Mass/Vol] 0.82 mg/dL 0.00-1.30 [facility] Blood manual differential co mment interpretation (narrative result)Ordered By: Em Torres on 04-22-2025 Manual differential comment Cm (Bld) [Interp] SCANNED [facility] Comment on above: LYMPHOPENIA NOTED CBC W/Diff, Automatedon 07-0 SMEAR COMMENT SCANNED Normal [facility] Comment on above: Result Comment: LYMP HOPENIA NOTED Performed By: #### L 500.4050, L100.0100 ####[facility] [address] [place], [address] Carbon dioxide, total [Moles /volume] in Central venous bloodOrdered By: Em Torres on 04-22-2025 CO2 [Moles/Vol] 26.9 mmol/L 21.0-32.0 [facility] Chloride assayOrdered By: Shonna Torres on 04-22-2025 Chloride [Moles/Vol] 102 mmol/L 98-108 [facility] Comprehensive Metabolic Prof ilon 04-22-2025 Albumin [Mass/Vol] 3.3 g/dL Low 3.4-4.8 [facility] Comment on above: Performed By: #### L 500.4050, L100.0100 ####[facility] [address] [place], [address] Albumin/Globulin [Mass ratio] 1.3 {ratio} Normal 0.9-2.4 [facility] Comment on above: Performed By: #### L 500.4050, L100.0100 ####[facility] [address] [place], [address] ALK PHOS 124 U/L High 35-104 [facility] Comment on above: Performed By: #### L 500.4050, L100.0100 ####[facility] [address] [place], [address] ALT [Catalytic activity/Vol] 36 U/L High <=34 [facility] Comment on above: Performed By: #### L 500.4050, L100.0100 ####[facility] [address] [place], [address] AST [Catalytic activity/Vol] 55 U/L High <=31 [facility] Comment on above: Performed By: #### L 500.4050, L100.0100 ####[facility] [address] [place], [address] Bilirubin [Mass/Vol] 0.82 mg/dL Normal 0.00-1.30 [facility] Comment on above: Performed By: #### L 500.4050, L100.0100 ####[facility] [address] [place], [address] BUN/CRE 23.5 RATIO High 10-20 [facility] Comment on above: Performed By: #### L 500.4050, L100.0100 ####[facility] [address] [place], [address] Calcium [Mass/Vol] 9.2 mg/dL Normal 7.6-11.0 [facility] Comment on above: Performed By: #### L 500.4050, L100.0100 ####[facility] [address] [place], [address] Chloride [Moles/Vol] 102 mmol/L Normal 98-108 [facility] Comment on above: Performed By: #### L 500.4050, L100.0100 ####[facility] [address] [place], [address] CO2 [Moles/Vol] 26.9 mmol/L Normal 21.0-32.0 [facility] Comment on above: Performed By: #### L 500.4050, L100.0100 ####[facility] [address] [place], [address] Creatinine [Mass/Vol] 0.72 mg/dL Normal 0.70-1.20 [facility] Comment on above: Performed By: #### L 500.4050, L100.0100 ####[facility] [address] [place], [address] ECRCL 67.39 ml/min Normal 50-250 [facility] Comment on above: Performed By: #### L 500.4050, L100.0100 ####[facility] [address] [place], [address] GAP 8 Normal 5-15 [facility] Comment on above: Performed By: #### L 500.4050, L100.0100 ####[facility] [address] [place], [address] GFR/1.73 sq M.predicted among non-blacks MDRD (S/P/Bld) [Vol rate/Area] 90 mL/min/{1.73_m2} Normal >60 [facility] Comment on above: Result Comment: mL/m in/1.73m2 CKD-EPI Creatinine Equation (2020) Performed By: #### L 500.4050, L100.0100 ####[facility] [address] [place], [address] Globulin (S) [Mass/Vol] 2.5 g/dL Normal 2.2-4.2 [facility] Comment on above: Performed By: #### L 500.4050, L100.0100 ####[facility] [address] [place], [address] Glucose [Mass/Vol] 97 mg/dL Normal 70-99 [facility] Comment on above: Performed By: #### L 500.4050, L100.0100 ####[facility] [address] [place], [address] Potassium [Moles/Vol] 3.7 mmol/L Normal 3.3-5.1 [facility] Comment on above: Performed By: #### L 500.4050, L100.0100 ####[facility] [address] [place], [address] Sodium [Moles/Vol] 137 mmol/L Normal 133-145 [facility] Comment on above: Performed By: #### L 500.4050, L100.0100 ####[facility] [address] [place], [address] T PROT 5.8 g/dL Low 5.9-8.4 [facility] Comment on above: Performed By: #### L 500.4050, L100.0100 ####[facility] [address] [place], [address] Urea nitrogen [Mass/Vol] 17 mg/dL Normal 4-19 [facility] Comment on above: Performed By: #### L 500.4050, L100.0100 ####[facility] [address] [place], [address] Eosinophil percentageOrdered By: Em Torres on 04-22-2025 Eosinophils/100 WBC (Bld) 4.0 % 0-5 [facility] Erythrocyte distribution wid th ratioOrdered By: Em Torres on 04-22-2025 Erythrocyte distribution width (RBC) [Ratio] 15.5 % High 11.6-14.6 [facility] Erythrocyte distribution wid th standard deviationOrdered By: Em Torres on 04-22-2025 Erythrocyte distribution width (RBC) [Ratio] 53.1 fl High 35.1-43.9 [facility] Glomerular filtration rate ( GFR) estimation/1.73 sq m using serum, plasma, or whole bOrdered By: Em Torres on 04-22-2025 GFR/1.73 sq M.predicted among non-blacks MDRD (S/P/Bld) [Vol rate/Area] 90 mL/min/{1.73_m2} >60 [facility] Comment on above: mL/min/1.73m2 CKD-EP I Creatinine Equation (2020) Hematocrit Auto (Bld) [Volum e fraction]Ordered By: Em Torres on 04-22-2025 Hematocrit (Bld) [Volume fraction] 30.6 % Low 37-47 [facility] Hemoglobin measurementOrdere d By: Em Torres on 04-22-2025 Hemoglobin (Bld) [Mass/Vol] 10.2 g/dL Low 12.0-15.0 [facility] Immature granulocytes/100 WB C Auto (Bld)Ordered By: Em Torres on 04-22-2025 Immature granulocytes/100 WBC (Bld) 0.400 % 0.0-0.9 [facility] Comment on above: IG% - Immature Granu locytes (promyelocytes, myelocytes and metamyelocytes) > 1% indicates that a LEFT SHIFT is Present. Laboratory - Chemistry and C hemistry - challengeOrdered By: Em Torres on 04-22-2025 AST [Catalytic activity/Vol] 55 U/L High <32 [facility] MCV (mean corpuscular volume ) determinationOrdered By: Em Torres on 04-22-2025 MCV (RBC) [Entitic vol] 93.6 fL 81-99 [facility] Mean corpuscular hemoglobin (MCH) determinationOrdered By: Em Torres on 04-22-2025 MCH (RBC) [Entitic mass] 31.2 pg 27.0-32.0 [facility] Mean corpuscular hemoglobin concentration (MCHC) determinationOrdered By: Em Torres on 04-22-2025 MCHC (RBC) [Mass/Vol] 33.3 g/dL 32-36 [facility] Mean platelet volume determi nationOrdered By: Em Torres on 04-22-2025 Platelet mean volume (Bld) [Entitic vol] 8.8 fL 6.2-12.0 [facility] Monocyte percentageOrdered B y: Em Torres on 04-22-2025 Monocytes/100 WBC (Bld) 13.0 % High 0-10 [facility] Neutrophil percentageOrdered By: Em Torres on 04-22-2025 Neutrophils/100 WBC (Bld) 66.0 % 47-70 [facility] Nucleated red blood cell per centageOrdered By: Em Torres on 04-22-2025 Nucleated RBC/100 WBC (Bld) [Ratio] 0 % 0-5 [facility] Oncology Visit Reporton 07-0 Oncology Visit Report Normal [facility] Platelet countOrdered By: Shonna Torres on 04-22-2025 Platelets (Bld) [#/Vol] 144 10*3/uL Low 150-450 [facility] Potassium measurement (mass/ volume)Ordered By: Em Torres on 04-22-2025 Potassium (Unsp spec) [Mass/Vol] 3.7 mmol/L 3.3-5.1 [facility] RBC Auto (Bld) [#/Vol]Ordere d By: Em Torres on 04-22-2025 RBC (Bld) [#/Vol] 3.27 10*6/uL Low 4.2-5.4 [facility] Serum creatinine measurement (mass/volume)Ordered By: Em Torres on 04-22-2025 Creatinine [Mass/Vol] 0.72 mg/dL 0.70-1.20 [facility] Serum globulin measurementOr dered By: Em Torres on 04-22-2025 Globulin (S) [Mass/Vol] 2.5 g/dL 2.2-4.2 [facility] Serum glucose measurement (m ass/volume)Ordered By: Em Torres on 04-22-2025 Glucose [Mass/Vol] 97 mg/dL 70-99 [facility] Serum or plasma alanine ratliff otransferase (ALT) measurementOrdered By: Em Torres on 04-22-2025 ALT [Catalytic activity/Vol] 36 U/L High <35 [facility] Serum or plasma albumin mireille urement (mass/volume)Ordered By: Em Torres on 04-22-2025 Albumin [Mass/Vol] 3.3 g/dL Low 3.4-4.8 [facility] Serum or plasma albumin/glob ulin mass ratioOrdered By: Em Torres on 04-22-2025 Albumin/Globulin [Mass ratio] 1.3 {ratio} 0.9-2.4 [facility] Serum or plasma alkaline cristiano sphatase measurementOrdered By: Em Torres on 04-22-2025 ALP [Catalytic activity/Vol] 124 U/L High 35-104 [facility] Serum or plasma calcium mireille urement (mass/volume)Ordered By: Em Torres on 04-22-2025 Calcium [Mass/Vol] 9.2 mg/dL 7.6-11.0 [facility] Serum or plasma urea nitroge n measurement (mass/volume)Ordered By: Em Brian on 04-22-2025 Urea nitrogen [Mass/Vol] 17 mg/dL 4-19 [facility] Sodium levelOrdered By: Deja dia Brian on 04-22-2025 Sodium [Moles/Vol] 137 mmol/L 133-145 [facility] Total proteinOrdered By: Americo berkowitz Brian on 04-22-2025 Protein [Mass/Vol] 5.8 g/dL Low 5.9-8.4 [facility] White blood cell (WBC) count Ordered By: Em Brian on 04-22-2025 WBC (Bld) [#/Vol] 2.8 10*3/uL Low 4.4-11.0 [facility] L501.5101on 04-02-2025 GGTP 76 IU/L Abnormal 0-60 [facility] Comment on above: Result Comment: Perf ormed at: - [facility] [address] Director: Rafael Saldana PhD, Phone: [phone] Performed By: #### L 784.3131, C692.1452, O724.0599 ####[facility] [address] [place], [place], [address] Absolute lymphocyte countOrd ered By: Dejasouth Torres on 04-01-2025 Lymphocytes Auto (Unsp spec) [#/Vol] 0.33 10*3/uL Low 0.83-4.51 [facility] Absolute neutrophil countOrd ered By: Em Brian on 04-01-2025 Neutrophils (Bld) [#/Vol] 1.8 10*3/uL Low 2.0-7.7 [facility] Anion gap in Serum or Plasma Ordered By: Dejasouth Torres on 04-01-2025 Anion gap [Moles/Vol] 10 mmol/L 5-15 [facility] Automated lymphocyte count a s percentage of total leukocytesOrdered By: Em Torres on 04-01-2025 Lymphocytes/100 WBC Auto (Unsp spec) 13.3 % Low 19-41 [facility] BUN/creatinine ratioOrdered By: Em Torres on 04-01-2025 Urea nitrogen/Creatinine [Mass ratio] 24.3 mg/mg High 10-20 [facility] Basophil percentageOrdered B y: Em Torres on 04-01-2025 Basophils/100 WBC (Bld) 1.6 % High 0-1 [facility] Bilirubin directOrdered By: Samantha Shen on 04-01-2025 Bilirubin.direct [Mass/Vol] 0.40 mg/dL High 0.00-0.30 [facility] Bilirubin, totalOrdered By: Samantha Shen on 04-01-2025 Bilirubin [Mass/Vol] 0.85 mg/dL 0.00-1.30 [facility] Blood manual differential co mment interpretation (narrative result)Ordered By: Em Torres on 04-01-2025 Manual differential comment Cm (Bld) [Interp] COMMENT [facility] Comment on above: LYMPHOPENIA. CBC W/Diff, Automatedon 03-21 SMEAR COMMENT COMMENT Normal [facility] Comment on above: Result Comment: LYMP HOPENIA. Performed By: #### L 500.4050, L100.0100 ####[facility] [address] [place], [place], [id number] Carbon dioxide, total [Moles /volume] in Central venous bloodOrdered By: Em Torres on 04-01-2025 CO2 [Moles/Vol] 26.0 mmol/L 21.0-32.0 [facility] Chloride assayOrdered By: Shonna Torres on 04-01-2025 Chloride [Moles/Vol] 102 mmol/L 98-108 [facility] Comprehensive Metabolic Prof ilon 04-01-2025 Albumin [Mass/Vol] 3.2 g/dL Low 3.4-4.8 [facility] Comment on above: Performed By: #### L 500.4050, L100.0100 ####[facility] [address] [place], [address] Albumin/Globulin [Mass ratio] 1.3 {ratio} Normal 0.9-2.4 [facility] Comment on above: Performed By: #### L 500.4050, L100.0100 ####[facility] [address] [place], [address] ALK PHOS 115 U/L High 35-104 [facility] Comment on above: Performed By: #### L 500.4050, L100.0100 ####[facility] [address] [place], [address] ALT [Catalytic activity/Vol] 31 U/L Normal <=34 [facility] Comment on above: Performed By: #### L 500.4050, L100.0100 ####[facility] [address] [place], [address] AST [Catalytic activity/Vol] 53 U/L High <=31 [facility] Comment on above: Performed By: #### L 500.4050, L100.0100 ####[facility] [address] [place], [address] Bilirubin [Mass/Vol] 0.85 mg/dL Normal 0.00-1.30 [facility] Comment on above: Performed By: #### L 500.4050, L100.0100 ####[facility] [address] [place], [address] BUN/CRE 24.3 RATIO High 10-20 [facility] Comment on above: Performed By: #### L 500.4050, L100.0100 ####[facility] [address] [place], [address] Calcium [Mass/Vol] 9.2 mg/dL Normal 7.6-11.0 [facility] Comment on above: Performed By: #### L 500.4050, L100.0100 ####[facility] [address] [place], [address] Chloride [Moles/Vol] 102 mmol/L Normal 98-108 [facility] Comment on above: Performed By: #### L 500.4050, L100.0100 ####[facility] [address] [place], [address] CO2 [Moles/Vol] 26.0 mmol/L Normal 21.0-32.0 [facility] Comment on above: Performed By: #### L 500.4050, L100.0100 ####[facility] [address] [place], [address] Creatinine [Mass/Vol] 0.77 mg/dL Normal 0.70-1.20 [facility] Comment on above: Performed By: #### L 500.4050, L100.0100 ####[facility] [address] [place], [address] ECRCL 68.26 ml/min Normal 50-250 [facility] Comment on above: Performed By: #### L 500.4050, L100.0100 ####[facility] [address] [place], [address] GAP 10 Normal 5-15 [facility] Comment on above: Performed By: #### L 500.4050, L100.0100 ####[facility] [address] [place], [address] GFR/1.73 sq M.predicted among non-blacks MDRD (S/P/Bld) [Vol rate/Area] 82 mL/min/{1.73_m2} Normal >60 [facility] Comment on above: Result Comment: mL/m in/1.73m2 CKD-EPI Creatinine Equation (2020) Performed By: #### L 500.4050, L100.0100 ####[facility] [address] [place], [address] Globulin (S) [Mass/Vol] 2.4 g/dL Normal 2.2-4.2 [facility] Comment on above: Performed By: #### L 500.4050, L100.0100 ####[facility] [address] [place], [address] Glucose [Mass/Vol] 145 mg/dL High 70-99 [facility] Comment on above: Performed By: #### L 500.4050, L100.0100 ####[facility] [address] [place], [address] Potassium [Moles/Vol] 3.5 mmol/L Normal 3.3-5.1 [facility] Comment on above: Performed By: #### L 500.4050, L100.0100 ####[facility] [address] [place], [address] Sodium [Moles/Vol] 138 mmol/L Normal 133-145 [facility] Comment on above: Performed By: #### L 500.4050, L100.0100 ####[facility] [address] [place], [address] T PROT 5.6 g/dL Low 5.9-8.4 [facility] Comment on above: Performed By: #### L 500.4050, L100.0100 ####[facility] [address] [place], [address] Urea nitrogen [Mass/Vol] 19 mg/dL Normal 4-19 [facility] Comment on above: Performed By: #### L 500.4050, L100.0100 ####[facility] [address] [place], [address] Eosinophil percentageOrdered By: Em Torres on 04-01-2025 Eosinophils/100 WBC (Bld) 2.0 % 0-5 [facility] Erythrocyte distribution wid th ratioOrdered By: Em Torres on 04-01-2025 Erythrocyte distribution width (RBC) [Ratio] 15.6 % High 11.6-14.6 [facility] Erythrocyte distribution wid th standard deviationOrdered By: Em Torres on 04-01-2025 Erythrocyte distribution width (RBC) [Ratio] 53.6 fl High 35.1-43.9 [facility] Ferritinon 04-01-2025 Ferritin [Mass/Vol] 648 ng/mL High 22-378 [facility] Comment on above: Order Comment: ADD O N TO BW DRAWN THIS AMTHG3 4 M THG3 3 J Performed By: #### L 503.6550, L503.6030 ####[facility] [address] [place], [address] Gamma glutamyl transferase ( GGT) measurementOrdered By: Samantha Shen on 04-01-2025 Amylase [Catalytic activity/Vol] 76 U/L High 0-60 [facility] Comment on above: Performed at: [place] [id number] Director: Rafael Saldana PhD, Phone: [phone] Glomerular filtration rate ( GFR) estimation/1.73 sq m using serum, plasma, or whole bOrdered By: Em Torres on 04-01-2025 GFR/1.73 sq M.predicted among non-blacks MDRD (S/P/Bld) [Vol rate/Area] 82 mL/min/{1.73_m2} >60 [facility] Comment on above: mL/min/1.73m2 CKD-EP I Creatinine Equation (2020) Hematocrit Auto (Bld) [Volum e fraction]Ordered By: Em Torres on 04-01-2025 Hematocrit (Bld) [Volume fraction] 28.7 % Low 37-47 [facility] Hemoglobin measurementOrdere d By: Em Torres on 04-01-2025 Hemoglobin (Bld) [Mass/Vol] 9.7 g/dL Low 12.0-15.0 [facility] Immature granulocytes/100 WB C Auto (Bld)Ordered By: Em Torres on 04-01-2025 Immature granulocytes/100 WBC (Bld) 0.000 % 0.0-0.9 [facility] Comment on above: IG% - Immature Granu locytes (promyelocytes, myelocytes and metamyelocytes) > 1% indicates that a LEFT SHIFT is Present. International normalized rat io (INR) calculationOrdered By: Samantha Shen on 04-01-2025 INR Coag (Bld) [Relative time] 1.0 {INR} [facility] Iron measurement (mass/mass) Ordered By: Alley Walden on 04-01-2025 Iron (Unsp spec) [Mass/Mass] 85 ug/dL 50-170 [facility] Iron+Iron Binding Capacityon 04-01-2025 Iron [Mass/Vol] 85 ug/dL Normal 50-170 [facility] Comment on above: Order Comment: ADD O N TO BW DRAWN THIS AMTHG3 4 M THG3 3 J Performed By: #### L 503.6550, L503.6030 ####[facility] [address] [place], [address] IRON SATURATION 33.0 Normal 13-59 [facility] Comment on above: Order Comment: ADD O N TO BW DRAWN THIS AMTHG3 4 M G3 3 J Performed By: #### L 503.6550, L503.6030 ####[facility] [address] [place], [address] TIBC 261 ug/dL Normal 250-450 [facility] Comment on above: Order Comment: ADD O N TO BW DRAWN THIS AMTHG3 4 M THG3 3 J Performed By: #### L 503.6550, L503.6030 ####[facility] [address] [place], [address] UIBC 176 ug/dL Low 228-428 [facility] Comment on above: Order Comment: ADD O N TO BW DRAWN THIS AMTHG3 4 M THG3 3 J Performed By: #### L 503.6550, L503.6030 ####[facility] [address] [place], [address] Laboratory - Chemistry and C hemistry - challengeOrdered By: Samantha Shen on 04-01-2025 AST [Catalytic activity/Vol] 53 U/L High <32 [facility] Liver Profileon 04-01-2025 Albumin [Mass/Vol] 3.1 g/dL Low 3.4-4.8 [facility] Comment on above: Performed By: #### L 501.5101, L300.3900, L500.3400 ####[facility] [address] [place], [address] ALK PHOS 116 U/L High 35-104 [facility] Comment on above: Performed By: #### L 501.5101, L300.3900, L500.3400 ####[facility] [address] [place], [address] ALT [Catalytic activity/Vol] 31 U/L Normal <=34 [facility] Comment on above: Performed By: #### L 501.5101, L300.3900, L500.3400 ####[facility] [address] [place], [address] AST [Catalytic activity/Vol] 53 U/L High <=31 [facility] Comment on above: Performed By: #### L 501.5101, L300.3900, L500.3400 ####[facility] [address] [place], [address] Bilirubin [Mass/Vol] 0.85 mg/dL Normal 0.00-1.30 [facility] Comment on above: Performed By: #### L 501.5101, L300.3900, L500.3400 ####[facility] [address] [place], [address] Bilirubin.direct [Mass/Vol] 0.40 mg/dL High 0.00-0.30 [facility] Comment on above: Performed By: #### L 501.5101, L300.3900, L500.3400 ####[facility] [address] [place], [address] Globulin (S) [Mass/Vol] 2.4 g/dL Normal 2.2-4.2 [facility] Comment on above: Performed By: #### L 501.5101, L300.3900, L500.3400 ####[facility] [address] [place], [address] T PROT 5.5 g/dL Low 5.9-8.4 [facility] Comment on above: Performed By: #### L 501.5101, L300.3900, L500.3400 ####[facility] [address] [place], [address] MCV (mean corpuscular volume ) determinationOrdered By: Em Torres on 04-01-2025 MCV (RBC) [Entitic vol] 94.7 fL 81-99 [facility] Mean corpuscular hemoglobin (MCH) determinationOrdered By: [facility] on 04-01-2025 MCH (RBC) [Entitic mass] 32.0 pg 27.0-32.0 [facility] Mean corpuscular hemoglobin concentration (MCHC) determinationOrdered By: Em Torres on 04-01-2025 MCHC (RBC) [Mass/Vol] 33.8 g/dL 32-36 [facility] Mean platelet volume determi nationOrdered By: [facility] on 04-01-2025 Platelet mean volume (Bld) [Entitic vol] 9.5 fL 6.2-12.0 [facility] Monocyte percentageOrdered B y: Em Torres on 04-01-2025 Monocytes/100 WBC (Bld) 10.8 % High 0-10 [facility] Neutrophil percentageOrdered By: [facility] on 04-01-2025 Neutrophils/100 WBC (Bld) 72.3 % High 47-70 [facility] No Panel InformationOrdered By: Alley Walden on 04-01-2025 Unsaturated Iron Binding Capacity 176 ug/dL Low 228-428 [facility] Nucleated red blood cell per centageOrdered By: Em Torres on 04-01-2025 Nucleated RBC/100 WBC (Bld) [Ratio] 0 % 0-5 [facility] Oncology Visit Reporton 03-21 Oncology Visit Report Normal [facility] Platelet countOrdered By: Shonna Torres on 04-01-2025 Platelets (Bld) [#/Vol] 126 10*3/uL Low 150-450 [facility] Potassium measurement (mass/ volume)Ordered By: Em Torres on 04-01-2025 Potassium (Unsp spec) [Mass/Vol] 3.5 mmol/L 3.3-5.1 [facility] Prothrombin Time w/INRon INR Coag (PPP) [Relative time] 1.0 {INR} Normal [facility] Comment on above: Performed By: #### L 501.5101, L300.3900, L500.3400 ####[facility] [address] [place], [address] PT Coag (PPP) [Time] 13.6 s Normal 11.7-14.9 [facility] Comment on above: Performed By: #### L 501.5101, L300.3900, L500.3400 ####[facility] [address] [place], [address] Prothrombin timeOrdered By: Samantha Shen on 04-01-2025 PT Coag (PPP) [Time] 13.6 s 11.7-14.9 [facility] RBC Auto (Bld) [#/Vol]Ordere d By: Em Torres on 04-01-2025 RBC (Bld) [#/Vol] 3.03 10*6/uL Low 4.2-5.4 [facility] Serum creatinine measurement (mass/volume)Ordered By: Em Torres on 04-01-2025 Creatinine [Mass/Vol] 0.77 mg/dL 0.70-1.20 [facility] Serum globulin measurementOr dered By: Samantha Shen on 04-01-2025 Globulin (S) [Mass/Vol] 2.4 g/dL 2.2-4.2 [facility] Serum glucose measurement (m ass/volume)Ordered By: Em Torres on 04-01-2025 Glucose [Mass/Vol] 145 mg/dL High 70-99 [facility] Serum or plasma alanine ratliff otransferase (ALT) measurementOrdered By: Samantha Shen on 04-01-2025 ALT [Catalytic activity/Vol] 31 U/L <35 [facility] Serum or plasma albumin mireille urement (mass/volume)Ordered By: Samantha Shen on 04-01-2025 Albumin [Mass/Vol] 3.1 g/dL Low 3.4-4.8 [facility] Serum or plasma albumin/glob ulin mass ratioOrdered By: Em Torres on 04-01-2025 Albumin/Globulin [Mass ratio] 1.3 {ratio} 0.9-2.4 [facility] Serum or plasma alkaline cristiano sphatase measurementOrdered By: Samantha Shen on 04-01-2025 ALP [Catalytic activity/Vol] 116 U/L High 35-104 [facility] Serum or plasma calcium mireille urement (mass/volume)Ordered By: Em Torres on 04-01-2025 Calcium [Mass/Vol] 9.2 mg/dL 7.6-11.0 [facility] Serum or plasma ferritin marni surement (mass/volume)Ordered By: Alley Walden on 04-01-2025 Ferritin [Mass/Vol] 648 ng/mL High 22-378 [facility] Serum or plasma iron saturat ion measurement (mass fraction)Ordered By: Alley Walden on 04-01-2025 Iron saturation [Mass fraction] 33.0 % 13-59 [facility] Serum or plasma urea nitroge n measurement (mass/volume)Ordered By: Em Torres on 04-01-2025 Urea nitrogen [Mass/Vol] 19 mg/dL 4-19 [facility] Sodium levelOrdered By: Deja Torres on 04-01-2025 Sodium [Moles/Vol] 138 mmol/L 133-145 [facility] Total proteinOrdered By: Noris Shen on 04-01-2025 Protein [Mass/Vol] 5.5 g/dL Low 5.9-8.4 [facility] White blood cell (WBC) count Ordered By: Em Torres on 04-01-2025 WBC (Bld) [#/Vol] 2.5 10*3/uL Low 4.4-11.0 [facility] Gastroenterology Visit Repor ton 03-17-2025 Gastroenterology Visit Report Normal [facility] Surgery Visit Reporton 03-12 Surgery Visit Report Normal [facility] Absolute lymphocyte countOrd ered By: Em Torres on 03-11-2025 Lymphocytes Auto (Unsp spec) [#/Vol] 0.38 10*3/uL Low 0.83-4.51 [facility] Absolute neutrophil countOrd ered By: Em Torres on 03-11-2025 Neutrophils (Bld) [#/Vol] 2.5 10*3/uL 2.0-7.7 [facility] Anion gap in Serum or Plasma Ordered By: Em Torres on 03-11-2025 Anion gap [Moles/Vol] 10 mmol/L 5-15 [facility] Automated lymphocyte count a s percentage of total leukocytesOrdered By: Em Torres on 03-11-2025 Lymphocytes/100 WBC Auto (Unsp spec) 11.4 % Low 19-41 [facility] BUN/creatinine ratioOrdered By: [facility] on 03-11-2025 Urea nitrogen/Creatinine [Mass ratio] 30.3 mg/mg High 10-20 [facility] Basophil percentageOrdered B y: Em Torres on 03-11-2025 Basophils/100 WBC (Bld) 0.9 % 0-1 [facility] Bilirubin, totalOrdered By: Em Torres on 03-11-2025 Bilirubin [Mass/Vol] 0.77 mg/dL 0.00-1.30 [facility] CBC W/Diff, Automatedon 02-19 Absolute Lymph 0.38 X10 3/uL Low 0.83-4.51 [facility] Comment on above: Performed By: #### L 500.4050, L100.0100 ####[facility] [address] [place], [address] Absolute Neut 2.5 X10 3/uL Normal 2.0-7.7 [facility] Comment on above: Performed By: #### L 500.4050, L100.0100 ####[facility] [address] [place], [address] Basophils/100 WBC (Bld) 0.9 % Normal 0-1 [facility] Comment on above: Performed By: #### L 500.4050, L100.0100 ####[facility] [address] [place], [address] Eosinophils/100 WBC (Bld) 2.4 % Normal 0-5 [facility] Comment on above: Performed By: #### L 500.4050, L100.0100 ####[facility] [address] [place], [address] Erythrocyte distribution width (RBC) [Ratio] 15.7 % High 11.6-14.6 [facility] Comment on above: Performed By: #### L 500.4050, L100.0100 ####[facility] [address] [place], [address] Hematocrit (Bld) [Volume fraction] 31.3 % Low 37-47 [facility] Comment on above: Performed By: #### L 500.4050, L100.0100 ####[facility] [address] [place], [address] Hemoglobin (Bld) [Mass/Vol] 10.3 g/dL Low 12.0-15.0 [facility] Comment on above: Performed By: #### L 500.4050, L100.0100 ####[facility] [address] [place], [address] IG% 0.300 Normal 0.0-0.9 [facility] Comment on above: Result Comment: IG% - Immature Granulocytes (promyelocytes, myelocytes andmetamyelocytes) > 1% indicates that a LEFT SHIFT is Present. Performed By: #### L 500.4050, L100.0100 ####[facility] [address] [place], [address] Lymphocytes/100 WBC (Bld) 11.4 % Low 19-41 [facility] Comment on above: Performed By: #### L 500.4050, L100.0100 ####[facility] [address] [place], [address] MCH (RBC) [Entitic mass] 31.3 pg Normal 27.0-32.0 [facility] Comment on above: Performed By: #### L 500.4050, L100.0100 ####[facility] [address] [place], [address] MCHC (RBC) [Mass/Vol] 32.9 g/dL Normal 32-36 [facility] Comment on above: Performed By: #### L 500.4050, L100.0100 ####[facility] [address] [place], [address] MCV (RBC) [Entitic vol] 95.1 fL Normal 81-99 [facility] Comment on above: Performed By: #### L 500.4050, L100.0100 ####[facility] [address] [place], [address] Monocytes/100 WBC (Bld) 11.1 % High 0-10 [facility] Comment on above: Performed By: #### L 500.4050, L100.0100 ####[facility] [address] [place], [address] Neutrophils/100 WBC (Bld) 73.9 % High 47-70 [facility] Comment on above: Performed By: #### L 500.4050, L100.0100 ####[facility] [address] [place], [address] Nucleated RBC (Bld) [#/Vol] 0 10*3/uL Normal 0-5 [facility] Comment on above: Performed By: #### L 500.4050, L100.0100 ####[facility] [address] [place], [address] Platelet mean volume (Bld) [Entitic vol] 9.3 fL Normal 6.2-12.0 [facility] Comment on above: Performed By: #### L 500.4050, L100.0100 ####[facility] [address] [place], [address] Platelets (Bld) [#/Vol] 147 10*3/uL Low 150-450 [facility] Comment on above: Performed By: #### L 500.4050, L100.0100 ####[facility] [address] [place], [address] RBC (Bld) [#/Vol] 3.29 10*6/uL Low 4.2-5.4 [facility] Comment on above: Performed By: #### L 500.4050, L100.0100 ####[facility] [address] [place], [address] RDW SD 55.1 fl High 35.1-43.9 [facility] Comment on above: Performed By: #### L 500.4050, L100.0100 ####[facility] [address] [place], [address] WBC (Bld) [#/Vol] 3.3 10*3/uL Low 4.4-11.0 [facility] Comment on above: Performed By: #### L 500.4050, L100.0100 ####[facility] [address] [place], [address] Carbon dioxide, total [Moles /volume] in Central venous bloodOrdered By: Em Torres on 03-11-2025 CO2 [Moles/Vol] 26.0 mmol/L 21.0-32.0 [facility] Chloride assayOrdered By: Shonna Torres on 03-11-2025 Chloride [Moles/Vol] 101 mmol/L 98-108 [facility] Comprehensive Metabolic Prof ilon 03-11-2025 Albumin/Globulin [Mass ratio] 1.2 {ratio} Normal 0.9-2.4 [facility] Comment on above: Performed By: #### L 500.4050, L100.0100 ####[facility] [address] [place], [address] ALK PHOS 128 U/L High 35-104 [facility] Comment on above: Performed By: #### L 500.4050, L100.0100 ####[facility] [address] [place], [address] ALT [Catalytic activity/Vol] 36 U/L High <=34 [facility] Comment on above: Performed By: #### L 500.4050, L100.0100 ####[facility] [address] [place], [address] AST [Catalytic activity/Vol] 61 U/L High <=31 [facility] Comment on above: Performed By: #### L 500.4050, L100.0100 ####[facility] [address] [place], [address] Bilirubin [Mass/Vol] 0.77 mg/dL Normal 0.00-1.30 [facility] Comment on above: Performed By: #### L 500.4050, L100.0100 ####[facility] [address] [place], [address] Calcium [Mass/Vol] 9.1 mg/dL Normal 7.6-11.0 [facility] Comment on above: Performed By: #### L 500.4050, L100.0100 ####[facility] [address] [place], [address] Chloride [Moles/Vol] 101 mmol/L Normal 98-108 [facility] Comment on above: Performed By: #### L 500.4050, L100.0100 ####[facility] [address] [place], [address] CO2 [Moles/Vol] 26.0 mmol/L Normal 21.0-32.0 [facility] Comment on above: Performed By: #### L 500.4050, L100.0100 ####[facility] [address] [place], [address] GAP 10 Normal 5-15 [facility] Comment on above: Performed By: #### L 500.4050, L100.0100 ####[facility] [address] [place], [address] Globulin (S) [Mass/Vol] 2.7 g/dL Normal 2.2-4.2 [facility] Comment on above: Performed By: #### L 500.4050, L100.0100 ####[facility] [address] [place], [address] Potassium [Moles/Vol] 3.7 mmol/L Normal 3.3-5.1 [facility] Comment on above: Performed By: #### L 500.4050, L100.0100 ####[facility] [address] [place], [address] Sodium [Moles/Vol] 137 mmol/L Normal 133-145 [facility] Comment on above: Performed By: #### L 500.4050, L100.0100 ####[facility] [address] [place], [address] Albumin [Mass/Vol] 3.4 g/dL Normal 3.4-4.8 [facility] Comment on above: Performed By: #### L 500.4050, L100.0100 ####[facility] [address] [place], [address] BUN/CRE 30.3 RATIO High 10-20 [facility] Comment on above: Performed By: #### L 500.4050, L100.0100 ####[facility] [address] [place], [address] Creatinine [Mass/Vol] 0.64 mg/dL Low 0.70-1.20 [facility] Comment on above: Performed By: #### L 500.4050, L100.0100 ####[facility] [address] [place], [address] ECRCL 68.26 ml/min Normal 50-250 [facility] Comment on above: Performed By: #### L 500.4050, L100.0100 ####[facility] [address] [place], [address] GFR/1.73 sq M.predicted among non-blacks MDRD (S/P/Bld) [Vol rate/Area] 95 mL/min/{1.73_m2} Normal >60 [facility] Comment on above: Result Comment: mL/m in/1.73m2 CKD-EPI Creatinine Equation (2020) Performed By: #### L 500.4050, L100.0100 ####[facility] [address] [place], [address] Glucose [Mass/Vol] 92 mg/dL Normal 70-99 [facility] Comment on above: Performed By: #### L 500.4050, L100.0100 ####[facility] [address] [place], [address] T PROT 6.1 g/dL Normal 5.9-8.4 [facility] Comment on above: Performed By: #### L 500.4050, L100.0100 ####[facility] [address] [place], [place], [id number] Urea nitrogen [Mass/Vol] 19 mg/dL Normal 4-19 [facility] Comment on above: Performed By: #### L 500.4050, L100.0100 ####[facility] [address] [place], [address] Eosinophil percentageOrdered By: Em Torres on 03-11-2025 Eosinophils/100 WBC (Bld) 2.4 % 0-5 [facility] Erythrocyte distribution wid th ratioOrdered By: [facility] on 03-11-2025 Erythrocyte distribution width (RBC) [Ratio] 15.7 % High 11.6-14.6 [facility] Erythrocyte distribution wid th standard deviationOrdered By: [facility] on 03-11-2025 Erythrocyte distribution width (RBC) [Ratio] 55.1 fl High 35.1-43.9 [facility] Glomerular filtration rate ( GFR) estimation/1.73 sq m using serum, plasma, or whole bOrdered By: Em Torres on 03-11-2025 GFR/1.73 sq M.predicted among non-blacks MDRD (S/P/Bld) [Vol rate/Area] 95 mL/min/{1.73_m2} >60 [facility] Comment on above: mL/min/1.73m2 CKD-EP I Creatinine Equation (2020) Hematocrit Auto (Bld) [Volum e fraction]Ordered By: Em Torres on 03-11-2025 Hematocrit (Bld) [Volume fraction] 31.3 % Low 37-47 [facility] Hemoglobin measurementOrdere d By: Em Torres on 03-11-2025 Hemoglobin (Bld) [Mass/Vol] 10.3 g/dL Low 12.0-15.0 [facility] Immature granulocytes/100 WB C Auto (Bld)Ordered By: Em Torres on 03-11-2025 Immature granulocytes/100 WBC (Bld) 0.300 % 0.0-0.9 [facility] Comment on above: IG% - Immature Granu locytes (promyelocytes, myelocytes and metamyelocytes) > 1% indicates that a LEFT SHIFT is Present. Laboratory - Chemistry and C hemistry - challengeOrdered By: Em Torres on 03-11-2025 AST [Catalytic activity/Vol] 61 U/L High <32 [facility] MCV (mean corpuscular volume ) determinationOrdered By: Em Torres on 03-11-2025 MCV (RBC) [Entitic vol] 95.1 fL 81-99 [facility] Magnesiumon 03-11-2025 Magnesium [Mass/Vol] 1.3 mg/dL Low 1.5-2.2 [facility] Comment on above: Performed By: #### L 501.5200, L501.2300 ####[facility] [address] [place], [address] Magnesium measurement (mass/ volume)Ordered By: Em Torres on 03-11-2025 Magnesium (Unsp spec) [Mass/Vol] 1.3 mg/dL Low 1.5-2.2 [facility] Mean corpuscular hemoglobin (MCH) determinationOrdered By: mE Torres on 03-11-2025 MCH (RBC) [Entitic mass] 31.3 pg 27.0-32.0 [facility] Mean corpuscular hemoglobin concentration (MCHC) determinationOrdered By: Em Torres on 03-11-2025 MCHC (RBC) [Mass/Vol] 32.9 g/dL 32-36 [facility] Mean platelet volume determi nationOrdered By: [facility] on 03-11-2025 Platelet mean volume (Bld) [Entitic vol] 9.3 fL 6.2-12.0 [facility] Monocyte percentageOrdered B y: Em Torres on 03-11-2025 Monocytes/100 WBC (Bld) 11.1 % High 0-10 [facility] Neutrophil percentageOrdered By: Em Torres on 03-11-2025 Neutrophils/100 WBC (Bld) 73.9 % High 47-70 [facility] Nucleated red blood cell per centageOrdered By: Em Torres on 03-11-2025 Nucleated RBC/100 WBC (Bld) [Ratio] 0 % 0-5 [facility] Oncology Visit Reporton 02-19 Oncology Visit Report Normal [facility] Phosphoruson 03-11-2025 Phosphate [Mass/Vol] 3.2 mg/dL Normal 2.7-4.5 [facility] Comment on above: Performed By: #### L 501.5200, L501.2300 ####[facility] [address] [place], [place], [id number] Platelet countOrdered By: Shonna Torres on 03-11-2025 Platelets (Bld) [#/Vol] 147 10*3/uL Low 150-450 [facility] Potassium measurement (mass/ volume)Ordered By: Em Torres on 03-11-2025 Potassium (Unsp spec) [Mass/Vol] 3.7 mmol/L 3.3-5.1 [facility] RBC Auto (Bld) [#/Vol]Ordere d By: Em Torres on 03-11-2025 RBC (Bld) [#/Vol] 3.29 10*6/uL Low 4.2-5.4 [facility] Radiation Oncology Visiton 0 03-11-2025 Radiation Oncology Visit Normal [facility] Serum creatinine measurement (mass/volume)Ordered By: Em Torres on 03-11-2025 Creatinine [Mass/Vol] 0.64 mg/dL Low 0.70-1.20 [facility] Serum globulin measurementOr dered By: Em Torres on 03-11-2025 Globulin (S) [Mass/Vol] 2.7 g/dL 2.2-4.2 [facility] Serum glucose measurement (m ass/volume)Ordered By: Em Torres on 03-11-2025 Glucose [Mass/Vol] 92 mg/dL 70-99 [facility] Serum or plasma alanine ratliff otransferase (ALT) measurementOrdered By: Em Torres on 03-11-2025 ALT [Catalytic activity/Vol] 36 U/L High <35 [facility] Serum or plasma albumin mireille urement (mass/volume)Ordered By: Em Torres on 03-11-2025 Albumin [Mass/Vol] 3.4 g/dL 3.4-4.8 [facility] Serum or plasma albumin/glob ulin mass ratioOrdered By: Em Torres on 03-11-2025 Albumin/Globulin [Mass ratio] 1.2 {ratio} 0.9-2.4 [facility] Serum or plasma alkaline cristiano sphatase measurementOrdered By: Em Torres on 03-11-2025 ALP [Catalytic activity/Vol] 128 U/L High 35-104 [facility] Serum or plasma calcium mireille urement (mass/volume)Ordered By: Em Torres on 03-11-2025 Calcium [Mass/Vol] 9.1 mg/dL 7.6-11.0 [facility] Serum or plasma urea nitroge n measurement (mass/volume)Ordered By: Em Torres on 03-11-2025 Urea nitrogen [Mass/Vol] 19 mg/dL 4-19 [facility] Sodium levelOrdered By: Deja Torres on 03-11-2025 Sodium [Moles/Vol] 137 mmol/L 133-145 [facility] Total proteinOrdered By: Americo Torres on 03-11-2025 Protein [Mass/Vol] 6.1 g/dL 5.9-8.4 [facility] White blood cell (WBC) count Ordered By: Em Torres on 03-11-2025 WBC (Bld) [#/Vol] 3.3 10*3/uL Low 4.4-11.0 [facility] PT D/C Summary (1)on 025 PT D/C Summary (1) Normal [facility] Absolute lymphocyte countOrd ered By: Em Torres on 02-18-2025 Lymphocytes Auto (Unsp spec) [#/Vol] 0.41 10*3/uL Low 0.83-4.51 [facility] Absolute neutrophil countOrd ered By: Em Torres on 02-18-2025 Neutrophils (Bld) [#/Vol] 2.5 10*3/uL 2.0-7.7 [facility] Anion gap in Serum or Plasma Ordered By: Em Torres on 02-18-2025 Anion gap [Moles/Vol] 9 mmol/L 5-15 [facility] Automated lymphocyte count a s percentage of total leukocytesOrdered By: Em Torres on 02-18-2025 Lymphocytes/100 WBC Auto (Unsp spec) 12.2 % Low 19-41 [facility] BUN/creatinine ratioOrdered By: [facility] Brian on 02-18-2025 Urea nitrogen/Creatinine [Mass ratio] 26.5 mg/mg High 10-20 [facility] Basophil percentageOrdered B y: Em Torres on 02-18-2025 Basophils/100 WBC (Bld) 1.2 % High 0-1 [facility] Bilirubin, totalOrdered By: [facility] on 02-18-2025 Bilirubin [Mass/Vol] 0.74 mg/dL 0.00-1.30 [facility] CBC W/Diff, Automatedon Absolute Lymph 0.41 X10 3/uL Low 0.83-4.51 [facility] Comment on above: Performed By: #### L 500.4050, L100.0100 ####[facility] [address] [place], [address] Absolute Neut 2.5 X10 3/uL Normal 2.0-7.7 [facility] Comment on above: Performed By: #### L 500.4050, L100.0100 ####[facility] [address] [place], [address] Basophils/100 WBC (Bld) 1.2 % High 0-1 [facility] Comment on above: Performed By: #### L 500.4050, L100.0100 ####[facility] [address] [place], [address] Eosinophils/100 WBC (Bld) 2.1 % Normal 0-5 [facility] Comment on above: Performed By: #### L 500.4050, L100.0100 ####[facility] [address] [place], [address] Erythrocyte distribution width (RBC) [Ratio] 15.9 % High 11.6-14.6 [facility] Comment on above: Performed By: #### L 500.4050, L100.0100 ####[facility] [address] [place], [address] Hematocrit (Bld) [Volume fraction] 31.2 % Low 37-47 [facility] Comment on above: Performed By: #### L 500.4050, L100.0100 ####[facility] [address] [place], [address] Hemoglobin (Bld) [Mass/Vol] 10.6 g/dL Low 12.0-15.0 [facility] Comment on above: Performed By: #### L 500.4050, L100.0100 ####[facility] [address] [place], [address] IG% 0.300 Normal 0.0-0.9 [facility] Comment on above: Result Comment: IG% - Immature Granulocytes (promyelocytes, myelocytes andmetamyelocytes) > 1% indicates that a LEFT SHIFT is Present. Performed By: #### L 500.4050, L100.0100 ####[facility] [address] [place], [address] Lymphocytes/100 WBC (Bld) 12.2 % Low 19-41 [facility] Comment on above: Performed By: #### L 500.4050, L100.0100 ####[facility] [address] [place], [address] MCH (RBC) [Entitic mass] 32.4 pg High 27.0-32.0 [facility] Comment on above: Performed By: #### L 500.4050, L100.0100 ####[facility] [address] [place], [address] MCHC (RBC) [Mass/Vol] 34.0 g/dL Normal 32-36 [facility] Comment on above: Performed By: #### L 500.4050, L100.0100 ####[facility] [address] [place], [address] MCV (RBC) [Entitic vol] 95.4 fL Normal 81-99 [facility] Comment on above: Performed By: #### L 500.4050, L100.0100 ####[facility] [address] [place], [address] Monocytes/100 WBC (Bld) 11.0 % High 0-10 [facility] Comment on above: Performed By: #### L 500.4050, L100.0100 ####[facility] [address] [place], [address] Neutrophils/100 WBC (Bld) 73.2 % High 47-70 [facility] Comment on above: Performed By: #### L 500.4050, L100.0100 ####[facility] [address] [place], [address] Nucleated RBC (Bld) [#/Vol] 0 10*3/uL Normal 0-5 [facility] Comment on above: Performed By: #### L 500.4050, L100.0100 ####[facility] [address] [place], [address] Platelet mean volume (Bld) [Entitic vol] 9.1 fL Normal 6.2-12.0 [facility] Comment on above: Performed By: #### L 500.4050, L100.0100 ####[facility] [address] [place], [address] Platelets (Bld) [#/Vol] 147 10*3/uL Low 150-450 [facility] Comment on above: Performed By: #### L 500.4050, L100.0100 ####[facility] [address] [place], [address] RBC (Bld) [#/Vol] 3.27 10*6/uL Low 4.2-5.4 [facility] Comment on above: Performed By: #### L 500.4050, L100.0100 ####[facility] [address] [place], [address] RDW SD 55.9 fl High 35.1-43.9 [facility] Comment on above: Performed By: #### L 500.4050, L100.0100 ####[facility] [address] [place], [address] WBC (Bld) [#/Vol] 3.4 10*3/uL Low 4.4-11.0 [facility] Comment on above: Performed By: #### L 500.4050, L100.0100 ####[facility] [address] [place], [address] Carbon dioxide, total [Moles /volume] in Central venous bloodOrdered By: Em Torres on 02-18-2025 CO2 [Moles/Vol] 25.5 mmol/L 21.0-32.0 [facility] Chloride assayOrdered By: Shonna Torres on 02-18-2025 Chloride [Moles/Vol] 102 mmol/L 98-108 [facility] Comprehensive Metabolic Prof ilon 02-18-2025 ALK PHOS 116 U/L High 35-104 [facility] Comment on above: Performed By: #### L 500.4050, L100.0100 ####[facility] [address] [place], [address] Eosinophil percentageOrdered By: Em Torres on 05-01-2025 Eosinophils/100 WBC (Bld) 2.1 % 0-5 [facility] Erythrocyte distribution wid th ratioOrdered By: Em Torres on 02-18-2025 Erythrocyte distribution width (RBC) [Ratio] 15.9 % High 11.6-14.6 [facility] Erythrocyte distribution wid th standard deviationOrdered By: Em Torres on 02-18-2025 Erythrocyte distribution width (RBC) [Ratio] 55.9 fl High 35.1-43.9 [facility] Glomerular filtration rate ( GFR) estimation/1.73 sq m using serum, plasma, or whole bOrdered By: Em Torres on 02-18-2025 GFR/1.73 sq M.predicted among non-blacks MDRD (S/P/Bld) [Vol rate/Area] 93 mL/min/{1.73_m2} >60 [facility] Comment on above: mL/min/1.73m2 CKD-EP I Creatinine Equation (2020) Hematocrit Auto (Bld) [Volum e fraction]Ordered By: Em Torres on 02-18-2025 Hematocrit (Bld) [Volume fraction] 31.2 % Low 37-47 [facility] Hemoglobin measurementOrdere d By: Em Torres on 02-18-2025 Hemoglobin (Bld) [Mass/Vol] 10.6 g/dL Low 12.0-15.0 [facility] Immature granulocytes/100 WB C Auto (Bld)Ordered By: Em Torres on 02-18-2025 Immature granulocytes/100 WBC (Bld) 0.300 % 0.0-0.9 [facility] Comment on above: IG% - Immature Granu locytes (promyelocytes, myelocytes and metamyelocytes) > 1% indicates that a LEFT SHIFT is Present. Laboratory - Chemistry and C hemistry - challengeOrdered By: Em Torres on 02-18-2025 AST [Catalytic activity/Vol] 57 U/L High <32 [facility] MCV (mean corpuscular volume ) determinationOrdered By: Em Torres on 02-18-2025 MCV (RBC) [Entitic vol] 95.4 fL 81-99 [facility] Mean corpuscular hemoglobin (MCH) determinationOrdered By: Em Torres on 02-18-2025 MCH (RBC) [Entitic mass] 32.4 pg High 27.0-32.0 [facility] Mean corpuscular hemoglobin concentration (MCHC) determinationOrdered By: Em Torres on 02-18-2025 MCHC (RBC) [Mass/Vol] 34.0 g/dL 32-36 [facility] Mean platelet volume determi nationOrdered By: Em Torres on 02-18-2025 Platelet mean volume (Bld) [Entitic vol] 9.1 fL 6.2-12.0 [facility] Monocyte percentageOrdered B y: Em Torres on 02-18-2025 Monocytes/100 WBC (Bld) 11.0 % High 0-10 [facility] Neutrophil percentageOrdered By: Em Torres on 02-18-2025 Neutrophils/100 WBC (Bld) 73.2 % High 47-70 [facility] Nucleated red blood cell per centageOrdered By: Em Torres on 02-18-2025 Nucleated RBC/100 WBC (Bld) [Ratio] 0 % 0-5 [facility] Oncology Visit Reporton 05-0 Oncology Visit Report Normal [facility] Platelet countOrdered By: Shonna Torres on 02-18-2025 Platelets (Bld) [#/Vol] 147 10*3/uL Low 150-450 [facility] Potassium measurement (mass/ volume)Ordered By: Em Torres on 02-18-2025 Potassium (Unsp spec) [Mass/Vol] 3.7 mmol/L 3.3-5.1 [facility] RBC Auto (Bld) [#/Vol]Ordere d By: Em Torres on 02-18-2025 RBC (Bld) [#/Vol] 3.27 10*6/uL Low 4.2-5.4 [facility] Serum creatinine measurement (mass/volume)Ordered By: Em Torres on 02-18-2025 Creatinine [Mass/Vol] 0.69 mg/dL Low 0.70-1.20 [facility] Serum globulin measurementOr dered By: Em Torres on 02-18-2025 Globulin (S) [Mass/Vol] 2.8 g/dL 2.2-4.2 [facility] Serum glucose measurement (m ass/volume)Ordered By: Em Torres on 02-18-2025 Glucose [Mass/Vol] 95 mg/dL 70-99 [facility] Serum or plasma alanine ratliff otransferase (ALT) measurementOrdered By: Em Torres on 02-18-2025 ALT [Catalytic activity/Vol] 35 U/L <35 [facility] Serum or plasma albumin mireille urement (mass/volume)Ordered By: Em Torres on 02-18-2025 Albumin [Mass/Vol] 3.2 g/dL Low 3.4-4.8 [facility] Serum or plasma albumin/glob ulin mass ratioOrdered By: Em Torres on 02-18-2025 Albumin/Globulin [Mass ratio] 1.2 {ratio} 0.9-2.4 [facility] Serum or plasma alkaline cristiano sphatase measurementOrdered By: Em Torres on 02-18-2025 ALP [Catalytic activity/Vol] 116 U/L High 35-104 [facility] Serum or plasma calcium mireille urement (mass/volume)Ordered By: Em Torres on 02-18-2025 Calcium [Mass/Vol] 8.5 mg/dL 7.6-11.0 [facility] Serum or plasma urea nitroge n measurement (mass/volume)Ordered By: Em Torres on 02-18-2025 Urea nitrogen [Mass/Vol] 18 mg/dL 4-19 [facility] Sodium levelOrdered By: Deja Torres on 02-18-2025 Sodium [Moles/Vol] 137 mmol/L 133-145 [facility] Total proteinOrdered By: Americo Torres on 02-18-2025 Protein [Mass/Vol] 6.1 g/dL 5.9-8.4 [facility] White blood cell (WBC) count Ordered By: Em Torres on 02-18-2025 WBC (Bld) [#/Vol] 3.4 10*3/uL Low 4.4-11.0 [facility] CT Chest, Abd, Pel w/Contras ton 02-12-2025 CT Chest, Abd, Pel w/Contrast Normal [facility] ONC Echo, Limited Studyon ONC Echo, Limited Study Normal [facility] Inital Evaluation (1) - PTon 02-05-2025 Inital Evaluation (1) - PT Normal [facility] Absolute lymphocyte countOrd ered By: Samantha Ac on 02-02-2025 Lymphocytes Auto (Unsp spec) [#/Vol] 0.40 10*3/uL Low 0.83-4.51 [facility] Absolute neutrophil countOrd ered By: Samantha Shen on 02-02-2025 Neutrophils (Bld) [#/Vol] 3.1 10*3/uL 2.0-7.7 [facility] Automated lymphocyte count a s percentage of total leukocytesOrdered By: Samantha Shen on 02-02-2025 Lymphocytes/100 WBC Auto (Unsp spec) 9.8 % Low 19-41 [facility] Basophil percentageOrdered B y: Samantha Shen on 02-02-2025 Basophils/100 WBC (Bld) 0.7 % 0-1 [facility] CBC W/Diff, Automatedon 01-19 Absolute Lymph 0.40 X10 3/uL Low 0.83-4.51 [facility] Comment on above: Performed By: #### L 100.0100 ####[facility] [address] [place], [address] Absolute Neut 3.1 X10 3/uL Normal 2.0-7.7 [facility] Comment on above: Performed By: #### L 100.0100 ####[facility] [address] [place], [address] Basophils/100 WBC (Bld) 0.7 % Normal 0-1 [facility] Comment on above: Performed By: #### L 100.0100 ####[facility] [address] [place], [address] Eosinophils/100 WBC (Bld) 2.0 % Normal 0-5 [facility] Comment on above: Performed By: #### L 100.0100 ####[facility] [address] [place], [address] Erythrocyte distribution width (RBC) [Ratio] 15.7 % High 11.6-14.6 [facility] Comment on above: Performed By: #### L 100.0100 ####[facility] [address] [place], [address] Hematocrit (Bld) [Volume fraction] 33.7 % Low 37-47 [facility] Comment on above: Performed By: #### L 100.0100 ####[facility] [address] [place], [address] Hemoglobin (Bld) [Mass/Vol] 11.3 g/dL Low 12.0-15.0 [facility] Comment on above: Performed By: #### L 100.0100 ####[facility] [address] [place], [address] IG% 0.500 Normal 0.0-0.9 [facility] Comment on above: Result Comment: IG% - Immature Granulocytes (promyelocytes, myelocytes andmetamyelocytes) > 1% indicates that a LEFT SHIFT is Present. Performed By: #### L 100.0100 ####[facility] [address] [place], [address] Lymphocytes/100 WBC (Bld) 9.8 % Low 19-41 [facility] Comment on above: Performed By: #### L 100.0100 ####[facility] [address] [place], [address] MCH (RBC) [Entitic mass] 31.8 pg Normal 27.0-32.0 [facility] Comment on above: Performed By: #### L 100.0100 ####[facility] [address] [place], [address] MCHC (RBC) [Mass/Vol] 33.5 g/dL Normal 32-36 [facility] Comment on above: Performed By: #### L 100.0100 ####[facility] [address] [place], [address] MCV (RBC) [Entitic vol] 94.9 fL Normal 81-99 [facility] Comment on above: Performed By: #### L 100.0100 ####[facility] [address] [place], [address] Monocytes/100 WBC (Bld) 11.7 % High 0-10 [facility] Comment on above: Performed By: #### L 100.0100 ####[facility] [address] [place], [address] Neutrophils/100 WBC (Bld) 75.3 % High 47-70 [facility] Comment on above: Performed By: #### L 100.0100 ####[facility] [address] [place], [address] Nucleated RBC (Bld) [#/Vol] 0 10*3/uL Normal 0-5 [facility] Comment on above: Performed By: #### L 100.0100 ####[facility] [address] [place], [address] Platelet mean volume (Bld) [Entitic vol] 9.1 fL Normal 6.2-12.0 [facility] Comment on above: Performed By: #### L 100.0100 ####[facility] [address] [place], [address] Platelets (Bld) [#/Vol] 136 10*3/uL Low 150-450 [facility] Comment on above: Performed By: #### L 100.0100 ####[facility] [address] [place], [address] RBC (Bld) [#/Vol] 3.55 10*6/uL Low 4.2-5.4 [facility] Comment on above: Performed By: #### L 100.0100 ####[facility] [address] [place], [address] RDW SD 54.4 fl High 35.1-43.9 [facility] Comment on above: Performed By: #### L 100.0100 ####[facility] [address] [place], [address] WBC (Bld) [#/Vol] 4.1 10*3/uL Low 4.4-11.0 [facility] Comment on above: Performed By: #### L 100.0100 ####[facility] [address] [place], [address] Eosinophil percentageOrdered By: Samantha Shen on 02-02-2025 Eosinophils/100 WBC (Bld) 2.0 % 0-5 [facility] Erythrocyte distribution wid th (RBC) [Ratio]Ordered By: Samantha Shen on 02-02-2025 Erythrocyte distribution width (RBC) [Entitic vol] 54.4 fL High 35.1-43.9 [facility] Erythrocyte distribution wid th ratioOrdered By: Samantha Shen on 02-02-2025 Erythrocyte distribution width (RBC) [Ratio] 15.7 % High 11.6-14.6 [facility] Erythrocyte distribution wid th standard deviationOrdered By: Samantha Shen on 02-02-2025 Erythrocyte distribution width (RBC) [Ratio] 54.4 fl High 35.1-43.9 [facility] Gastroenterology Visit Repor ton 02-02-2025 Gastroenterology Visit Report Normal [facility] Hematocrit Auto (Bld) [Volum e fraction]Ordered By: Samantha Shen on 02-02-2025 Hematocrit (Bld) [Volume fraction] 33.7 % Low 37-47 [facility] Hemoglobin measurementOrdere d By: Samantha Shen on 02-02-2025 Hemoglobin (Bld) [Mass/Vol] 11.3 g/dL Low 12.0-15.0 [facility] Immature granulocytes/100 WB C Auto (Bld)Ordered By: Samantha Shen on 02-02-2025 Immature granulocytes/100 WBC (Bld) 0.500 % 0.0-0.9 [facility] Comment on above: IG% - Immature Granu locytes (promyelocytes, myelocytes and metamyelocytes) > 1% indicates that a LEFT SHIFT is Present. Lymphocytes Auto (Unsp spec) [#/Vol]Ordered By: Samantha Shen on 02-02-2025 Lymphocytes (Bld) [#/Vol] 0.40 10*3/uL Low 0.83-4.51 [facility] Lymphocytes/100 WBC Auto (Un sp spec)Ordered By: Samantha Shen on 02-02-2025 Lymphocytes/100 WBC (Bld) 9.8 % Low 19-41 [facility] MCV (mean corpuscular volume ) determinationOrdered By: Samantha Shen on 02-02-2025 MCV (RBC) [Entitic vol] 94.9 fL 81-99 [facility] Mean corpuscular hemoglobin (MCH) determinationOrdered By: Samantha Shen on 02-02-2025 MCH (RBC) [Entitic mass] 31.8 pg 27.0-32.0 [facility] Mean corpuscular hemoglobin concentration (MCHC) determinationOrdered By: Samantha Shen on 02-02-2025 MCHC (RBC) [Mass/Vol] 33.5 g/dL 32-36 [facility] Mean platelet volume determi nationOrdered By: Samantha Shen on 02-02-2025 Platelet mean volume (Bld) [Entitic vol] 9.1 fL 6.2-12.0 [facility] Monocyte percentageOrdered B y: Samantha Shen on 02-02-2025 Monocytes/100 WBC (Bld) 11.7 % High 0-10 [facility] Neutrophil percentageOrdered By: Samantha Shen on 02-02-2025 Neutrophils/100 WBC (Bld) 75.3 % High 47-70 [facility] Nucleated red blood cell per centageOrdered By: Samantha Shen on 02-02-2025 Nucleated RBC/100 WBC (Bld) [Ratio] 0 % 0-5 [facility] Platelet countOrdered By: Celestino neydaazeb Guanony on 02-02-2025 Platelets (Bld) [#/Vol] 136 10*3/uL Low 150-450 [facility] RBC Auto (Bld) [#/Vol]Ordere d By: Samantha Shen on 02-02-2025 RBC (Bld) [#/Vol] 3.55 10*6/uL Low 4.2-5.4 [facility] White blood cell (WBC) count Ordered By: Samantha Shen on 02-02-2025 WBC (Bld) [#/Vol] 4.1 10*3/uL Low 4.4-11.0 [facility] Absolute neutrophil countOrd ered By: Em Torres on 01-28-2025 Neutrophils (Bld) [#/Vol] 2.3 10*3/uL 2.0-7.7 [facility] Anion gap in Serum or Plasma Ordered By: Em Torres on 01-28-2025 Anion gap [Moles/Vol] 9 mmol/L 5-15 [facility] BUN/creatinine ratioOrdered By: Em Torres on 01-28-2025 Urea nitrogen/Creatinine [Mass ratio] 24.7 mg/mg High 10- [facility] Basophil percentageOrdered B y: Em Torers on 01-28-2025 Basophils/100 WBC (Bld) 1.7 % High 0-1 [facility] Bilirubin, totalOrdered By: Em Torres on 01-28-2025 Bilirubin [Mass/Vol] 0.66 mg/dL 0.00-1.30 [facility] CBC W/Diff, Automatedon 01-19 Absolute Lymph 0.31 X10 3/uL Low 0.83-4.51 [facility] Comment on above: Performed By: #### L 100.0100, L500.4050 ####[facility] [address] [place], [place], [id number] Absolute Neut 2.3 X10 3/uL Normal 2.0-7.7 [facility] Comment on above: Performed By: #### L 100.0100, L500.4050 ####[facility] [address] [place], [address] Basophils/100 WBC (Bld) 1.7 % High 0-1 [facility] Comment on above: Performed By: #### L 100.0100, L500.4050 ####[facility] [address] [place], [address] Eosinophils/100 WBC (Bld) 2.6 % Normal 0-5 [facility] Comment on above: Performed By: #### L 100.0100, L500.4050 ####[facility] [address] [place], [address] Erythrocyte distribution width (RBC) [Ratio] 15.8 % High 11.6-14.6 [facility] Comment on above: Performed By: #### L 100.0100, L500.4050 ####[facility] [address] [place], [address] Hematocrit (Bld) [Volume fraction] 33.1 % Low 37-47 [facility] Comment on above: Performed By: #### L 100.0100, L500.4050 ####[facility] [address] [place], [address] Hemoglobin (Bld) [Mass/Vol] 11.1 g/dL Low 12.0-15.0 [facility] Comment on above: Performed By: #### L 100.0100, L500.4050 ####[facility] [address] [place], [address] IG% 0.300 Normal 0.0-0.9 [facility] Comment on above: Result Comment: IG% - Immature Granulocytes (promyelocytes, myelocytes andmetamyelocytes) > 1% indicates that a LEFT SHIFT is Present. Performed By: #### L 100.0100, L500.4050 ####[facility] [address] [place], [address] Lymphocytes/100 WBC (Bld) 10.3 % Low 19-41 [facility] Comment on above: Performed By: #### L 100.0100, L500.4050 ####[facility] [address] [place], [address] MCH (RBC) [Entitic mass] 31.8 pg Normal 27.0-32.0 [facility] Comment on above: Performed By: #### L 100.0100, L500.4050 ####[facility] [address] [place], [address] MCHC (RBC) [Mass/Vol] 33.5 g/dL Normal 32-36 [facility] Comment on above: Performed By: #### L 100.0100, L500.4050 ####[facility] [address] [place], [address] MCV (RBC) [Entitic vol] 94.8 fL Normal 81-99 [facility] Comment on above: Performed By: #### L 100.0100, L500.4050 ####[facility] [address] [place], [address] Monocytes/100 WBC (Bld) 9.9 % Normal 0-10 [facility] Comment on above: Performed By: #### L 100.0100, L500.4050 ####[facility] [address] [place], [address] Neutrophils/100 WBC (Bld) 75.2 % High 47-70 [facility] Comment on above: Performed By: #### L 100.0100, L500.4050 ####[facility] [address] [place], [address] Nucleated RBC (Bld) [#/Vol] 0 10*3/uL Normal 0-5 [facility] Comment on above: Performed By: #### L 100.0100, L500.4050 ####[facility] [address] [place], [address] Platelet mean volume (Bld) [Entitic vol] 9.1 fL Normal 6.2-12.0 [facility] Comment on above: Performed By: #### L 100.0100, L500.4050 ####[facility] [address] [place], [address] Platelets (Bld) [#/Vol] 147 10*3/uL Low 150-450 [facility] Comment on above: Performed By: #### L 100.0100, L500.4050 ####[facility] [address] [place], [address] RBC (Bld) [#/Vol] 3.49 10*6/uL Low 4.2-5.4 [facility] Comment on above: Performed By: #### L 100.0100, L500.4050 ####[facility] [address] [place], [address] RDW SD 55.1 fl High 35.1-43.9 [facility] Comment on above: Performed By: #### L 100.0100, L500.4050 ####[facility] [address] [place], [address] WBC (Bld) [#/Vol] 3.0 10*3/uL Low 4.4-11.0 [facility] Comment on above: Performed By: #### L 100.0100, L500.4050 ####[facility] [address] [place], [address] Calculated total iron bindin g capacityOrdered By: Alley Walden on 01-28-2025 Total Iron Binding Capacity 252 ug/dL 250-450 [facility] Carbon dioxide, total [Moles /volume] in Central venous bloodOrdered By: Dejasouth Torres on 01-28-2025 CO2 [Moles/Vol] 27.3 mmol/L 21.0-32.0 [facility] Chloride assayOrdered By: Shonna segunsouth Torres on 01-28-2025 Chloride [Moles/Vol] 104 mmol/L 98-108 [facility] Comprehensive Metabolic Prof ilon 01-28-2025 Albumin [Mass/Vol] 3.3 g/dL Low 3.4-4.8 [facility] Comment on above: Performed By: #### L 100.0100, L500.4050 ####[facility] [address] [place], [address] Albumin/Globulin [Mass ratio] 1.1 {ratio} Normal 0.9-2.4 [facility] Comment on above: Performed By: #### L 100.0100, L500.4050 ####[facility] [address] [place], [address] ALK PHOS 109 U/L High 35-104 [facility] Comment on above: Performed By: #### L 100.0100, L500.4050 ####[facility] [address] [place], [address] ALT [Catalytic activity/Vol] 30 U/L Normal <=34 [facility] Comment on above: Performed By: #### L 100.0100, L500.4050 ####[facility] [address] [place], [address] AST [Catalytic activity/Vol] 50 U/L High <=31 [facility] Comment on above: Performed By: #### L 100.0100, L500.4050 ####[facility] [address] [place], [address] Bilirubin [Mass/Vol] 0.66 mg/dL Normal 0.00-1.30 [facility] Comment on above: Performed By: #### L 100.0100, L500.4050 ####[facility] [address] [place], [address] BUN/CRE 24.7 RATIO High 10-20 [facility] Comment on above: Performed By: #### L 100.0100, L500.4050 ####[facility] [address] [place], [address] Calcium [Mass/Vol] 9.4 mg/dL Normal 7.6-11.0 [facility] Comment on above: Performed By: #### L 100.0100, L500.4050 ####[facility] [address] [place], [address] Chloride [Moles/Vol] 104 mmol/L Normal 98-108 [facility] Comment on above: Performed By: #### L 100.0100, L500.4050 ####[facility] [address] [place], [address] CO2 [Moles/Vol] 27.3 mmol/L Normal 21.0-32.0 [facility] Comment on above: Performed By: #### L 100.0100, L500.4050 ####[facility] [address] [place], [address] Creatinine [Mass/Vol] 0.71 mg/dL Normal 0.70-1.20 [facility] Comment on above: Performed By: #### L 100.0100, L500.4050 ####[facility] [address] [place], [address] ECRCL 67.88 ml/min Normal 50-250 [facility] Comment on above: Performed By: #### L 100.0100, L500.4050 ####[facility] [address] [place], [address] GAP 9 Normal 5-15 [facility] Comment on above: Performed By: #### L 100.0100, L500.4050 ####[facility] [address] [place], [address] GFR/1.73 sq M.predicted among non-blacks MDRD (S/P/Bld) [Vol rate/Area] 92 mL/min/{1.73_m2} Normal >60 [facility] Comment on above: Result Comment: mL/m in/1.73m2 CKD-EPI Creatinine Equation (2020) Performed By: #### L 100.0100, L500.4050 ####[facility] [address] [place], [address] Globulin (S) [Mass/Vol] 3.0 g/dL Normal 2.2-4.2 [facility] Comment on above: Performed By: #### L 100.0100, L500.4050 ####[facility] [address] [place], [address] Glucose [Mass/Vol] 105 mg/dL High 70-99 [facility] Comment on above: Performed By: #### L 100.0100, L500.4050 ####[facility] [address] [place], [address] Potassium [Moles/Vol] 3.4 mmol/L Normal 3.3-5.1 [facility] Comment on above: Performed By: #### L 100.0100, L500.4050 ####[facility] [address] [place], [address] Sodium [Moles/Vol] 141 mmol/L Normal 133-145 [facility] Comment on above: Performed By: #### L 100.0100, L500.4050 ####[facility] [address] [place], [address] T PROT 6.2 g/dL Normal 5.9-8.4 [facility] Comment on above: Performed By: #### L 100.0100, L500.4050 ####[facility] [address] [place], [address] Urea nitrogen [Mass/Vol] 18 mg/dL Normal 4-19 [facility] Comment on above: Performed By: #### L 100.0100, L500.4050 ####[facility] [address] [place], [address] Eosinophil percentageOrdered By: Em Torres on 01-28-2025 Eosinophils/100 WBC (Bld) 2.6 % 0-5 [facility] Erythrocyte distribution wid th (RBC) [Ratio]Ordered By: Em Torres on 01-28-2025 Erythrocyte distribution width (RBC) [Entitic vol] 55.1 fL High 35.1-43.9 [facility] Erythrocyte distribution wid th ratioOrdered By: Em Torres on 01-28-2025 Erythrocyte distribution width (RBC) [Ratio] 15.8 % High 11.6-14.6 [facility] Estimation of creatinine satnam aranceOrdered By: Em Torres on 01-28-2025 Estimated Creatinine Clearance Calc 67.88 ml/min 50-250 [facility] Ferritinon 01-28-2025 Ferritin [Mass/Vol] 1149 ng/mL High 22-378 [facility] Comment on above: Order Comment: ADD O N FROM EARLIER TODAY Performed By: #### L 503.6030, L503.6550 ####[facility] [address] [place], [address] GFR/1.73 sq M.predicted adam g non-blacks MDRD (S/P/Bld) [Vol rate/Area]Ordered By: Em Torres on 01-28-2025 Estimated GFR (MDRD) Non-Af Amer 92 >60 [facility] Comment on above: mL/min/1.73m2 CKD-EP I Creatinine Equation (2020) Hematocrit Auto (Bld) [Volum e fraction]Ordered By: Em Torres on 04-10-2025 Hematocrit (Bld) [Volume fraction] 33.1 % Low 37-47 [facility] Hemoglobin measurementOrdere d By: Em Torres on 01-28-2025 Hemoglobin (Bld) [Mass/Vol] 11.1 g/dL Low 12.0-15.0 [facility] Immature granulocytes/100 WB C Auto (Bld)Ordered By: Em Torres on 01-28-2025 Immature granulocytes/100 WBC (Bld) 0.300 % 0.0-0.9 [facility] Comment on above: IG% - Immature Granu locytes (promyelocytes, myelocytes and metamyelocytes) > 1% indicates that a LEFT SHIFT is Present. Iron (Unsp spec) [Mass/Mass] Ordered By: Alley Walden on 01-28-2025 Iron [Mass/Vol] 96 ug/dL 50-170 [facility] Iron measurement (mass/mass) Ordered By: Alley Walden on 01-28-2025 Iron (Unsp spec) [Mass/Mass] 96 ug/dL 50-170 [facility] Iron saturation [Mass fracti on]Ordered By: Alley Walden on 01-28-2025 Iron Saturation 38.0 % 13-59 [facility] Iron+Iron Binding Capacityon 01-28-2025 Iron [Mass/Vol] 96 ug/dL Normal 50-170 [facility] Comment on above: Order Comment: ADD O N FROM EARLIER TODAY Performed By: #### L 503.6030, L503.6550 ####[facility] [address] [facility] [address] IRON SATURATION 38.0 Normal 13-59 [facility] Comment on above: Order Comment: ADD O N FROM EARLIER TODAY Performed By: #### L 503.6030, L503.6550 ####[facility] [address] [facility] [address] TIBC 252 ug/dL Normal 250-450 [facility] Comment on above: Order Comment: ADD O N FROM EARLIER TODAY Performed By: #### L 503.6030, L503.6550 ####[facility] [address] [place], [place], [address] UIBC 156 ug/dL Low 228-428 [facility] Comment on above: Order Comment: ADD O N FROM EARLIER TODAY Performed By: #### L 503.6030, L503.6550 ####[facility] [address] [place], [place], [id number] Laboratory - Chemistry and C hemistry - challengeOrdered By: Em Torres on 01-28-2025 AST [Catalytic activity/Vol] 50 U/L High <32 [facility] Lymphocytes Auto (Unsp spec) [#/Vol][facility] on 01-28-2025 Lymphocytes (Bld) [#/Vol] 0.31 10*3/uL Low 0.83-4.51 [facility] Lymphocytes/100 WBC Auto (Un sp spec)Ordered By: Em Torres on 01-28-2025 Lymphocytes/100 WBC (Bld) 10.3 % Low 19-41 [facility] MCV (mean corpuscular volume ) determinationOrdered By: [facility] on 01-28-2025 MCV (RBC) [Entitic vol] 94.8 fL 81-99 [facility] Magnesiumon 01-28-2025 Magnesium [Mass/Vol] 1.3 mg/dL Low 1.5-2.2 [facility] Comment on above: Order Comment: ADD O N FROM TODAYS LABS Performed By: #### L 501.2300, L501.5200 ####[facility] [address] [place], [place], [id number] Magnesium (Unsp spec) [Mass/ Vol]Ordered By: Em Torres on 01-28-2025 Magnesium [Mass/Vol] 1.3 mg/dL Low 1.5-2.2 [facility] Magnesium measurement (mass/ volume)Ordered By: Em Torres on 01-28-2025 Magnesium (Unsp spec) [Mass/Vol] 1.3 mg/dL Low 1.5-2.2 [facility] Mean corpuscular hemoglobin (MCH) determinationOrdered By: Em Torres on 01-28-2025 MCH (RBC) [Entitic mass] 31.8 pg 27.0-32.0 [facility] Mean corpuscular hemoglobin concentration (MCHC) determinationOrdered By: Em Torres on 01-28-2025 MCHC (RBC) [Mass/Vol] 33.5 g/dL 32-36 [facility] Mean platelet volume determi nationOrdered By: Em Torres on 01-28-2025 Platelet mean volume (Bld) [Entitic vol] 9.1 fL 6.2-12.0 [facility] Monocyte percentageOrdered B y: Em Torres on 01-28-2025 Monocytes/100 WBC (Bld) 9.9 % 0-10 [facility] Neutrophil percentageOrdered By: [facility] on 01-28-2025 Neutrophils/100 WBC (Bld) 75.2 % High 47-70 [facility] No Panel InformationOrdered By: Alley Walden on 01-28-2025 Unsaturated Iron Binding Capacity 156 ug/dL Low 228-428 [facility] Nucleated red blood cell per centageOrdered By: Em Torres on 01-28-2025 Nucleated RBC/100 WBC (Bld) [Ratio] 0 % 0-5 [facility] OT D/C of Non Returning Pton 01-28-2025 OT D/C of Non Returning Pt Normal [facility] Oncology Visit Reporton 01-19 Oncology Visit Report Normal [facility] Phosphoruson 01-28-2025 Phosphate [Mass/Vol] 3.2 mg/dL Normal 2.7-4.5 [facility] Comment on above: Order Comment: ADD O N FROM TODAYS LABS Performed By: #### L 501.2300, L501.5200 ####[facility] [address] [place], [address] Platelet countOrdered By: Shonna Torres on 01-28-2025 Platelets (Bld) [#/Vol] 147 10*3/uL Low 150-450 [facility] Potassium (Unsp spec) [Mass/ Vol]Ordered By: Em Torres on 01-28-2025 Potassium [Moles/Vol] 3.4 mmol/L 3.3-5.1 [facility] RBC Auto (Bld) [#/Vol]Ordere d By: Em Torres on 01-28-2025 RBC (Bld) [#/Vol] 3.49 10*6/uL Low 4.2-5.4 [facility] Serum creatinine measurement (mass/volume)Ordered By: Em Torres on 01-28-2025 Creatinine [Mass/Vol] 0.71 mg/dL 0.70-1.20 [facility] Serum globulin measurementOr dered By: Em Torres on 01-28-2025 Globulin (S) [Mass/Vol] 3.0 g/dL 2.2-4.2 [facility] Serum glucose measurement (m ass/volume)Ordered By: Em Torres on 01-28-2025 Glucose [Mass/Vol] 105 mg/dL High 70-99 [facility] Serum or plasma alanine ratliff otransferase (ALT) measurementOrdered By: Em Torres on 01-28-2025 ALT [Catalytic activity/Vol] 30 U/L <35 [facility] Serum or plasma albumin mireille urement (mass/volume)Ordered By: Em Torres on 01-28-2025 Albumin [Mass/Vol] 3.3 g/dL Low 3.4-4.8 [facility] Serum or plasma albumin/glob ulin mass ratioOrdered By: Em Torres on 01-28-2025 Albumin/Globulin [Mass ratio] 1.1 {ratio} 0.9-2.4 [facility] Serum or plasma alkaline cristiano sphatase measurementOrdered By: Em Torres on 01-28-2025 ALP [Catalytic activity/Vol] 109 U/L High 35-104 [facility] Serum or plasma calcium mireille urement (mass/volume)Ordered By: Em Torres on 01-28-2025 Calcium [Mass/Vol] 9.4 mg/dL 7.6-11.0 [facility] Serum or plasma ferritin marni surement (mass/volume)Ordered By: Alley Walden on 01-28-2025 Ferritin [Mass/Vol] 1149 ng/mL High 22-378 [facility] Serum or plasma iron saturat ion measurement (mass fraction)Ordered By: Alley Walden on 01-28-2025 Iron saturation [Mass fraction] 38.0 % 13-59 [facility] Serum or plasma urea nitroge n measurement (mass/volume)Ordered By: Em Torres on 01-28-2025 Urea nitrogen [Mass/Vol] 18 mg/dL 4-19 [facility] Serum phosphorus measurement Ordered By: Em Torres on 01-28-2025 Phosphorus Level 3.2 mg/dL 2.7-4.5 [facility] Sodium levelOrdered By: Deja Torres on 01-28-2025 Sodium [Moles/Vol] 141 mmol/L 133-145 [facility] Total proteinOrdered By: Americo Torres on 01-28-2025 Protein [Mass/Vol] 6.2 g/dL 5.9-8.4 [facility] White blood cell (WBC) count Ordered By: Em Torres on 01-28-2025 WBC (Bld) [#/Vol] 3.0 10*3/uL Low 4.4-11.0 [facility] [employer] Worker Office Visit Reporton 01-25-2025 [employer] Work[employer] Office Visit Report Normal [facility] CBC W/Diff, Automatedon PATH REV N/A Normal [facility] Comment on above: Result Comment: AMENDED REPORT 01/24/25 7944 PATH REV previously reported as: February steven Performed By: #### L 500.4050, L100.0100 ####[facility] [address] [place], [address] Flex Sigmoidoscopy Reporton 01-12-2025 Flex Sigmoidoscopy Report Normal [facility] MR/POSTOP.ANEon 01-12-2025 MR/POSTOP.ANE Normal [facility] MR/[id number] 01-12-2025 MR/POSTOPAN2 Normal [facility] MR/PAT.ANEon 01-08-2025 MR/PAT.ANE Normal [facility] Absolute neutrophil countOrd ered By: New Ibrahim on 01-07-2025 Neutrophils (Bld) [#/Vol] 2.1 10*3/uL 2.0-7.7 [facility] Anion gap in Serum or Plasma Ordered By: New Patrice on 01-07-2025 Anion gap [Moles/Vol] 11 mmol/L - [facility] BUN/creatinine ratioOrdered By: New Patrice on 01-07-2025 Urea nitrogen/Creatinine [Mass ratio] 27.6 mg/mg High 10- [facility] Basophil percentageOrdered B y: New [place] on 01-07-2025 Basophils/100 WBC (Bld) 1.7 % High 0-1 [facility] Bilirubin, totalOrdered By: New Patrice on 01-07-2025 Bilirubin [Mass/Vol] 0.71 mg/dL 0.00-1.30 [facility] Blood manual differential co mment interpretation (narrative result)Ordered By: New Ibrahim on 01-07-2025 Manual differential comment Cm (Bld) [Interp] COMMENT [facility] Comment on above: LYMPHOPENIA. CBC W/Diff, Automatedon 12-20 Absolute Neut Normal 2.0-7.7 [facility] Comment on above: Result Comment: DUPL ICATE ORDER Performed By: #### L 500.4050, L100.0100 ####[facility] [address] [place], [address] HCT Normal 37-47 [facility] Comment on above: Result Comment: DUPL ICATE ORDER Performed By: #### L 500.4050, L100.0100 ####[facility] [address] [place], [address] HGB Normal 12.0-15.0 [facility] Comment on above: Result Comment: DUPL ICATE ORDER Performed By: #### L 500.4050, L100.0100 ####[facility] [address] [place], [address] MCH Normal 27.0-32.0 [facility] Comment on above: Result Comment: DUPL ICATE ORDER Performed By: #### L 500.4050, L100.0100 ####[facility] [address] [place], [address] MCHC Normal 32-36 [facility] Comment on above: Result Comment: DUPL ICATE ORDER Performed By: #### L 500.4050, L100.0100 ####[facility] [address] [place], [address] MCV Normal 81-99 [facility] Comment on above: Result Comment: DUPL ICATE ORDER Performed By: #### L 500.4050, L100.0100 ####[facility] [address] [place], [address] NEUT% Normal 47-70 [facility] Comment on above: Result Comment: DUPL ICATE ORDER Performed By: #### L 500.4050, L100.0100 ####[facility] [address] [place], [address] PLT Normal 150-450 [facility] Comment on above: Result Comment: DUPL ICATE ORDER Performed By: #### L 500.4050, L100.0100 ####[facility] [address] [place], [address] RBC Normal 4.2-5.4 [facility] Comment on above: Result Comment: DUPL ICATE ORDER Performed By: #### L 500.4050, L100.0100 ####[facility] [address] [place], [address] RDW CV Normal 11.6-14.6 [facility] Comment on above: Result Comment: DUPL ICATE ORDER Performed By: #### L 500.4050, L100.0100 ####[facility] [address] [place], [address] RDW SD Normal 35.1-43.9 [facility] Comment on above: Result Comment: DUPL ICATE ORDER Performed By: #### L 500.4050, L100.0100 ####[facility] [address] [place], [address] WBC Normal 4.4-11.0 [facility] Comment on above: Result Comment: DUPL ICATE ORDER Performed By: #### L 500.4050, L100.0100 ####[facility] [address] [place], [address] Carbon dioxide, total [Moles /volume] in Central venous bloodOrdered By: New Ibrahim on 01-07-2025 CO2 [Moles/Vol] 24.4 mmol/L 21.0-32.0 [facility] Chloride assayOrdered By: St prieto Ibrahim on 01-07-2025 Chloride [Moles/Vol] 103 mmol/L 98-108 [facility] Comprehensive Metabolic Prof ilon 01-07-2025 Albumin [Mass/Vol] 3.3 g/dL Low 3.4-4.8 [facility] Comment on above: Performed By: #### L 500.4050, L100.0100 ####[facility] [address] [place], [address] Albumin/Globulin [Mass ratio] 1.1 {ratio} Normal 0.9-2.4 [facility] Comment on above: Performed By: #### L 500.4050, L100.0100 ####[facility] [address] [place], [address] ALK PHOS 111 U/L High 35-104 [facility] Comment on above: Performed By: #### L 500.4050, L100.0100 ####[facility] [address] [place], [address] ALT [Catalytic activity/Vol] 31 U/L Normal <=34 [facility] Comment on above: Performed By: #### L 500.4050, L100.0100 ####[facility] [address] [place], [address] AST [Catalytic activity/Vol] 49 U/L High <=31 [facility] Comment on above: Performed By: #### L 500.4050, L100.0100 ####[facility] [address] [place], [address] Bilirubin [Mass/Vol] 0.71 mg/dL Normal 0.00-1.30 [facility] Comment on above: Performed By: #### L 500.4050, L100.0100 ####[facility] [address] [place], [address] BUN/CRE 27.6 RATIO High 10-20 [facility] Comment on above: Performed By: #### L 500.4050, L100.0100 ####[facility] [address] [place], [address] Calcium [Mass/Vol] 9.3 mg/dL Normal 7.6-11.0 [facility] Comment on above: Performed By: #### L 500.4050, L100.0100 ####[facility] [address] [place], [address] Chloride [Moles/Vol] 103 mmol/L Normal 98-108 [facility] Comment on above: Performed By: #### L 500.4050, L100.0100 ####[facility] [address] [place], [address] CO2 [Moles/Vol] 24.4 mmol/L Normal 21.0-32.0 [facility] Comment on above: Performed By: #### L 500.4050, L100.0100 ####[facility] [address] [place], [address] Creatinine [Mass/Vol] 0.66 mg/dL Low 0.70-1.20 [facility] Comment on above: Performed By: #### L 500.4050, L100.0100 ####[facility] [address] [place], [address] ECRCL 67.50 ml/min Normal 50-250 [facility] Comment on above: Performed By: #### L 500.4050, L100.0100 ####[facility] [address] [place], [address] GAP 11 Normal 5-15 [facility] Comment on above: Performed By: #### L 500.4050, L100.0100 ####[facility] [address] [place], [address] GFR/1.73 sq M.predicted among non-blacks MDRD (S/P/Bld) [Vol rate/Area] 94 mL/min/{1.73_m2} Normal >60 [facility] Comment on above: Result Comment: mL/m in/1.73m2 CKD-EPI Creatinine Equation (2020) Performed By: #### L 500.4050, L100.0100 ####[facility] [address] [place], [address] Globulin (S) [Mass/Vol] 3.0 g/dL Normal 2.2-4.2 [facility] Comment on above: Performed By: #### L 500.4050, L100.0100 ####[facility] [address] [place], [address] Glucose [Mass/Vol] 88 mg/dL Normal 70-99 [facility] Comment on above: Performed By: #### L 500.4050, L100.0100 ####[facility] [address] [place], [address] Potassium [Moles/Vol] 3.6 mmol/L Normal 3.3-5.1 [facility] Comment on above: Performed By: #### L 500.4050, L100.0100 ####[facility] [address] [place], [address] Sodium [Moles/Vol] 138 mmol/L Normal 133-145 [facility] Comment on above: Performed By: #### L 500.4050, L100.0100 ####[facility] [address] [place], [address] T PROT 6.3 g/dL Normal 5.9-8.4 [facility] Comment on above: Performed By: #### L 500.4050, L100.0100 ####[facility] [address] [place], [address] Urea nitrogen [Mass/Vol] 18 mg/dL Normal 4-19 [facility] Comment on above: Performed By: #### L 500.4050, L100.0100 ####[facility] [address] [place], [address] ALB Normal 3.4-4.8 [facility] Comment on above: Result Comment: DUPL ICATE ORDER Performed By: #### L 500.4050, L100.0100 ####[facility] [address] [place], [address] ALK PHOS Normal 35-104 [facility] Comment on above: Result Comment: DUPL ICATE ORDER Performed By: #### L 500.4050, L100.0100 ####[facility] [address] [place], [address] ALT Normal <=34 [facility] Comment on above: Result Comment: DUPL ICATE ORDER Performed By: #### L 500.4050, L100.0100 ####[facility] [address] [place], [address] AST Normal <=31 [facility] Comment on above: Result Comment: DUPL ICATE ORDER Performed By: #### L 500.4050, L100.0100 ####[facility] [address] [place], [address] BUN Normal 4-19 [facility] Comment on above: Result Comment: DUPL ICATE ORDER Performed By: #### L 500.4050, L100.0100 ####[facility] [address] [place], [address] BUN/CRE Normal 10-20 [facility] Comment on above: Result Comment: DUPL ICATE ORDER Performed By: #### L 500.4050, L100.0100 ####[facility] [address] [place], [address] Calcium Normal 7.6-11.0 [facility] Comment on above: Result Comment: DUPL ICATE ORDER Performed By: #### L 500.4050, L100.0100 ####[facility] [address] [place], [address] CL Normal 98-108 [facility] Comment on above: Result Comment: DUPL ICATE ORDER Performed By: #### L 500.4050, L100.0100 ####[facility] [address] [place], [address] CO2 Normal 21.0-32.0 [facility] Comment on above: Result Comment: DUPL ICATE ORDER Performed By: #### L 500.4050, L100.0100 ####[facility] [address] [place], [address] CREAT,SERUM Normal 0.70-1.20 [facility] Comment on above: Result Comment: DUPL ICATE ORDER Performed By: #### L 500.4050, L100.0100 ####[facility] [address] [place], [address] eGFR Normal >60 [facility] Comment on above: Result Comment: DUPL ICATE ORDER Performed By: #### L 500.4050, L100.0100 ####[facility] [address] [place], [address] GAP Normal 5-15 [facility] Comment on above: Result Comment: DUPL ICATE ORDER Performed By: #### L 500.4050, L100.0100 ####[facility] [address] [place], [address] GLU Normal 70-99 [facility] Comment on above: Result Comment: DUPL ICATE ORDER Performed By: #### L 500.4050, L100.0100 ####[facility] [address] [place], [address] Potassium Normal 3.3-5.1 [facility] Comment on above: Result Comment: DUPL ICATE ORDER Performed By: #### L 500.4050, L100.0100 ####[facility] [address] [place], [address] T BILI Normal 0.00-1.30 [facility] Comment on above: Result Comment: DUPL ICATE ORDER Performed By: #### L 500.4050, L100.0100 ####[facility] [address] [place], [address] T PROT Normal 5.9-8.4 [facility] Comment on above: Result Comment: DUPL ICATE ORDER Performed By: #### L 500.4050, L100.0100 ####[facility] [address] [place], [address] Comprehensive Metabolic Profil Normal 133-145 [facility] Comment on above: Result Comment: DUPL ICATE ORDER Performed By: #### L 500.4050, L100.0100 ####[facility] [address] [place], [address] Eosinophil percentageOrdered By: New Ibrahim on 01-07-2025 Eosinophils/100 WBC (Bld) 2.7 % 0-5 [facility] Erythrocyte distribution wid th ratioOrdered By: New Ibrahim on 01-07-2025 Erythrocyte distribution width (RBC) [Ratio] 16.4 % High 11.6-14.6 [facility] Erythrocyte distribution wid th standard deviationOrdered By: New Ibrahim on 01-07-2025 Erythrocyte distribution width (RBC) [Entitic vol] 57.6 fL High 35.1-43.9 [facility] Estimation of creatinine satnam aranceOrdered By: New Ibrahim on 01-07-2025 Estimated Creatinine Clearance Calc 67.50 ml/min 50-250 [facility] GFR/1.73 sq M.predicted adam g non-blacks MDRD (S/P/Bld) [Vol rate/Area]Ordered By: New Ibrahim on 01-07-2025 Estimated GFR (MDRD) Non-Af Amer 94 >60 [facility] Comment on above: mL/min/1.73m2 CKD-EP I Creatinine Equation (2020) Hematocrit Auto (Bld) [Volum e fraction]Ordered By: New Ibrahim on 01-07-2025 Hematocrit (Bld) [Volume fraction] 34.3 % Low 37-47 [facility] Hemoglobin measurementOrdere d By: New Ibrahim on 01-07-2025 Hemoglobin (Bld) [Mass/Vol] 11.4 g/dL Low 12.0-15.0 [facility] Immature granulocytes/100 WB C Auto (Bld)Ordered By: New Ibrahim on 01-07-2025 Immature granulocytes/100 WBC (Bld) 0.300 % 0.0-0.9 [facility] Comment on above: IG% - Immature Granu locytes (promyelocytes, myelocytes and metamyelocytes) > 1% indicates that a LEFT SHIFT is Present. Laboratory - Chemistry and C hemistry - challengeOrdered By: New Ibrahim on 01-07-2025 AST [Catalytic activity/Vol] 49 U/L High <32 [facility] Lymphocytes Auto (Unsp spec) [#/Vol]Ordered By: New Ibrahim on 01-07-2025 Lymphocytes (Bld) [#/Vol] 0.38 10*3/uL Low 0.83-4.51 [facility] Lymphocytes/100 WBC Auto (Un sp spec)Ordered By: New Ibrahim on 01-07-2025 Lymphocytes/100 WBC (Bld) 13.1 % Low 19-41 [facility] MCV (mean corpuscular volume ) determinationOrdered By: New Ibrahim on 01-07-2025 MCV (RBC) [Entitic vol] 95.3 fL 81-99 [facility] Magnesiumon 01-07-2025 Magnesium [Mass/Vol] 1.4 mg/dL Low 1.5-2.2 [facility] Comment on above: Performed By: #### L 501.5200, L501.2300 ####[facility] [address] [place], [address] Magnesium (Unsp spec) [Mass/ Vol]Ordered By: Em Torres on 01-07-2025 Magnesium [Mass/Vol] 1.4 mg/dL Low 1.5-2.2 [facility] Manual differential comment Cm (Bld) [Interp]Ordered By: New Ibrahim on 01-07-2025 Differential Comment COMMENT [facility] Comment on above: LYMPHOPENIA. Mean corpuscular hemoglobin (MCH) determinationOrdered By: New Ibrahim on 01-07-2025 MCH (RBC) [Entitic mass] 31.7 pg 27.0-32.0 [facility] Mean corpuscular hemoglobin concentration (MCHC) determinationOrdered By: New Ibrahim on 01-07-2025 MCHC (RBC) [Mass/Vol] 33.2 g/dL 32-36 [facility] Mean platelet volume determi nationOrdered By: New Ibrahim on 01-07-2025 Platelet mean volume (Bld) [Entitic vol] 9.0 fL 6.2-12.0 [facility] Monocyte percentageOrdered B y: New Ibrahim on 01-07-2025 Monocytes/100 WBC (Bld) 9.3 % 0-10 [facility] Neutrophil percentageOrdered By: New Ibrahim on 01-07-2025 Neutrophils/100 WBC (Bld) 72.9 % High 47-70 [facility] Nucleated red blood cell per centageOrdered By: New Ibrahim on 01-07-2025 Nucleated RBC/100 WBC (Bld) [Ratio] 0 % 0-5 [facility] Oncology Visit Reporton -2 0-2024 Oncology Visit Report Normal [facility] Pathologist review Cm (Unsp spec) [Interp]Ordered By: New Ibrahim on 01-07-2025 Differential Pathologist's Review February steven [facility] Differential Pathologist's Review N/A [facility] Comment on above: Previous reported re sult: February steven Edited by: MILTON on 01/24/25:475 AMENDED REPORT 01/24/251746 PATH REV previously reported as: Briana harris Phosphoruson 01-07-2025 Phosphate [Mass/Vol] 3.3 mg/dL Normal 2.7-4.5 [facility] Comment on above: Performed By: #### L 501.5200, L501.2300 ####[facility] [address] [place], [address] Platelet countOrdered By: St prieto Ibrahim on 01-07-2025 Platelets (Bld) [#/Vol] 166 10*3/uL 150-450 [facility] Potassium (Unsp spec) [Mass/ Vol]Ordered By: New Ibrahim on 01-07-2025 Potassium [Moles/Vol] 3.6 mmol/L 3.3-5.1 [facility] RBC Auto (Bld) [#/Vol]Ordere d By: New Ibrahim on 01-07-2025 RBC (Bld) [#/Vol] 3.60 10*6/uL Low 4.2-5.4 [facility] Review by pathologistOrdered By: New Ibrahim on 01-07-2025 Pathologist review Cm (Unsp spec) [Interp] N/A [facility] Comment on above: Previous reported re sult: Briana steven Edited by: MILTON on 01/24/25:1747 AMENDED REPORT 01/24/251746 PATH REV previously reported as: February steven Serum creatinine measurement (mass/volume)Ordered By: New Ibrahim on 01-07-2025 Creatinine [Mass/Vol] 0.66 mg/dL Low 0.70-1.20 [facility] Serum globulin measurementOr dered By: New Ibrahim on 01-07-2025 Globulin (S) [Mass/Vol] 3.0 g/dL 2.2-4.2 [facility] Serum glucose measurement (m ass/volume)Ordered By: New Ibrahim on 01-07-2025 Glucose [Mass/Vol] 88 mg/dL 70-99 [facility] Serum or plasma alanine ratliff otransferase (ALT) measurementOrdered By: New Ibrahim on 01-07-2025 ALT [Catalytic activity/Vol] 31 U/L <35 [facility] Serum or plasma albumin mireille urement (mass/volume)Ordered By: New Ibrahim on 01-07-2025 Albumin [Mass/Vol] 3.3 g/dL Low 3.4-4.8 [facility] Serum or plasma albumin/glob ulin mass ratioOrdered By: New Ibrahim on 01-07-2025 Albumin/Globulin [Mass ratio] 1.1 {ratio} 0.9-2.4 [facility] Serum or plasma alkaline cristiano sphatase measurementOrdered By: New Ibrahim on 01-07-2025 ALP [Catalytic activity/Vol] 111 U/L High 35-104 [facility] Serum or plasma calcium mireille urement (mass/volume)Ordered By: New Ibrahim on 01-07-2025 Calcium [Mass/Vol] 9.3 mg/dL 7.6-11.0 [facility] Serum or plasma urea nitroge n measurement (mass/volume)Ordered By: New Ibrahim on 01-07-2025 Urea nitrogen [Mass/Vol] 18 mg/dL 4-19 [facility] Serum phosphorus measurement Ordered By: Em Torres on 01-07-2025 Phosphorus Level 3.3 mg/dL 2.7-4.5 [facility] Sodium levelOrdered By: Fermin Ibrahim on 01-07-2025 Sodium [Moles/Vol] 138 mmol/L 133-145 [facility] Total proteinOrdered By: Malcolm Ibrahim on 01-07-2025 Protein [Mass/Vol] 6.3 g/dL 5.9-8.4 [facility] White blood cell (WBC) count Ordered By: New Ibrahim on 01-07-2025 WBC (Bld) [#/Vol] 2.9 10*3/uL Low 4.4-11.0 [facility] Gastroenterology Visit Repor ton 12-28-2024 Gastroenterology Visit Report Normal [facility] CDIFF (PCR)on 12-23-2024 CDIFF Pending 027 027 NAP1-B1 Presumptive Negative *for epidemiolologic???use C. Diff PCR Negative- No toxigenic C. Diff Detected Normal [facility] Comment on above: Performed By: #### M 100.637, M100.6796 ####[facility] [address] [facility] [place], [address] ENTERIC PATHOGEN PANEL STOOL on 12-23-2024 EP PANEL Normal [facility] Comment on above: Performed By: #### M 100.637, M100.6796 ####[facility] [address] [place], [address] C. difficile DNA CHEL+probe Q l (Unsp spec)Ordered By: Alley Walden on 12-22-2024 Clostridioides difficile (PCR) [facility] Clostridium difficile detect ion by polymerase chain reactionOrdered By: Alley Walden on 12-22-2024 C. difficile DNA CHEL+probe Ql (Unsp spec) [facility] C. difficile DNA CHEL+probe Ql (Unsp spec) [facility] Stool enteric pathogen panel by probe and target amplification methodOrdered By: Alley Walden on 12-22-2024 Enteric Bacteriology [facility] CBC W/Diff, Automatedon 11-22 PATH REV Reviewed Normal [facility] Comment on above: Result Comment: LEUK OPENIAClinical correlation necessary.Francisco Riggs M.D. 12/18/24 AMENDED REPORT 12/18/24 6057 PATH REV previously reported as: May steven Performed By: #### L 100.0100, L500.4050 ####[facility] [address] [place], [address] Chloride measurementOrdered By: Em Torres on 12-17-2024 Chloride [Moles/Vol] 102 mmol/L 96-108 [facility] Comprehensive Metabolic Prof ilon 12-17-2024 Albumin [Mass/Vol] 3.2 g/dL Low 3.4-4.8 [facility] Comment on above: Performed By: #### L 100.0100, L500.4050 ####[facility] [address] [place], [address] Albumin/Globulin [Mass ratio] 1.1 {ratio} Normal 0.9-2.4 [facility] Comment on above: Performed By: #### L 100.0100, L500.4050 ####[facility] [address] [place], [address] ALK PHOS 151 U/L High 35-104 [facility] Comment on above: Performed By: #### L 100.0100, L500.4050 ####[facility] [address] [place], [address] ALT [Catalytic activity/Vol] 38 U/L High <=34 [facility] Comment on above: Performed By: #### L 100.0100, L500.4050 ####[facility] [address] [place], [address] Anion gap [Moles/Vol] 9 mmol/L Normal 5-15 [facility] Comment on above: Performed By: #### L 100.0100, L500.4050 ####[facility] [address] [place], [address] AST [Catalytic activity/Vol] 60 U/L High <=31 [facility] Comment on above: Performed By: #### L 100.0100, L500.4050 ####[facility] [address] [place], [address] Bilirubin [Mass/Vol] 0.63 mg/dL Normal 0.00-1.30 [facility] Comment on above: Performed By: #### L 100.0100, L500.4050 ####[facility] [address] [place], [address] BUN/CRE 23.2 RATIO High 10-20 [facility] Comment on above: Performed By: #### L 100.0100, L500.4050 ####[facility] [address] [place], [address] Calcium [Mass/Vol] 9.1 mg/dL Normal 7.6-11.0 [facility] Comment on above: Performed By: #### L 100.0100, L500.4050 ####[facility] [address] [place], [address] Chloride [Moles/Vol] 102 mmol/L Normal 96-108 [facility] Comment on above: Performed By: #### L 100.0100, L500.4050 ####[facility] [address] [place], [address] CO2 [Moles/Vol] 27.3 mmol/L Normal 22.0-29.0 [facility] Comment on above: Performed By: #### L 100.0100, L500.4050 ####[facility] [address] [place], [address] Creatinine [Mass/Vol] 0.7 mg/dL Normal 0.6-1.0 [facility] Comment on above: Performed By: #### L 100.0100, L500.4050 ####[facility] [address] [place], [address] ECRCL 67.70 ml/min Normal [facility] Comment on above: Performed By: #### L 100.0100, L500.4050 ####[facility] [address] [place], [address] GFR/1.73 sq M.predicted among non-blacks MDRD (S/P/Bld) [Vol rate/Area] 91 mL/min/{1.73_m2} Normal >60 [facility] Comment on above: Result Comment: mL/m in/1.73m2 CKD-EPI Creatinine Equation (2020) Performed By: #### L 100.0100, L500.4050 ####[facility] [address] [place], [address] Globulin (S) [Mass/Vol] 2.9 g/dL Normal 2.2-4.2 [facility] Comment on above: Performed By: #### L 100.0100, L500.4050 ####[facility] [address] [place], [address] Glucose [Mass/Vol] 122 mg/dL High 70-99 [facility] Comment on above: Performed By: #### L 100.0100, L500.4050 ####[facility] [address] [place], [address] Potassium [Moles/Vol] 3.6 mmol/L Normal 3.3-5.1 [facility] [facility] Comment on above: Performed By: #### L 100.0100, L500.4050 ####[facility] [address] [place], [address] Sodium [Moles/Vol] 138 mmol/L Normal 133-145 [facility] Comment on above: Performed By: #### L 100.0100, L500.4050 ####[facility] [address] [place], [address] T PROT 6.1 g/dL Normal 5.9-8.4 [facility] Comment on above: Performed By: #### L 100.0100, L500.4050 ####[facility] [address] [place], [address] Urea nitrogen [Mass/Vol] 17 mg/dL Normal 4-19 [facility] Comment on above: Performed By: #### L 100.0100, L500.4050 ####[facility] [address] [place], [address] Magnesiumon 12-17-2024 Magnesium [Mass/Vol] 1.4 mg/dL Low 1.5-2.2 [facility] Comment on above: Order Comment: G4 4 APER NURSE-ADD ON THESE 2 TESTS TO BW DONE EARLIER Performed By: #### L 501.5200, L501.2300 ####[facility] [address] [place], [address] Oncology Visit Reporton 11-22 Oncology Visit Report Normal [facility] Phosphoruson 12-17-2024 Phosphate [Mass/Vol] 3.1 mg/dL Normal 2.7-4.5 [facility] Comment on above: Order Comment: G4 4 APER NURSE-ADD ON THESE 2 TESTS TO BW DONE EARLIER Performed By: #### L 501.5200, L501.2300 ####[facility] [address] [place], [address] Cardiology Visit Reporton Cardiology Visit Report Normal [facility] CBC W/Diff, Automatedon Absolute Lymph 0.21 X10 3/uL Low 0.83-4.51 [facility] Comment on above: Performed By: #### L 500.4050, L100.0100 ####[facility] [address] [place], [address] Absolute Neut 2.6 X10 3/uL Normal 2.0-7.7 [facility] Comment on above: Performed By: #### L 500.4050, L100.0100 ####[facility] [address] [place], [address] Basophils/100 WBC (Bld) 0.9 % Normal 0-1 [facility] Comment on above: Performed By: #### L 500.4050, L100.0100 ####[facility] [address] [place], [address] Eosinophils/100 WBC (Bld) 2.8 % Normal 0-5 [facility] Comment on above: Performed By: #### L 500.4050, L100.0100 ####[facility] [address] [place], [address] Erythrocyte distribution width (RBC) [Ratio] 16.8 % High 11.6-14.6 [facility] Comment on above: Performed By: #### L 500.4050, L100.0100 ####[facility] [address] [place], [address] Hematocrit (Bld) [Volume fraction] 33.0 % Low 37-47 [facility] Comment on above: Performed By: #### L 500.4050, L100.0100 ####[facility] [address] [place], [address] Hemoglobin (Bld) [Mass/Vol] 10.7 g/dL Low 12.0-15.0 [facility] Comment on above: Performed By: #### L 500.4050, L100.0100 ####[facility] [address] [place], [address] IG% 0.300 Normal 0.0-0.9 [facility] Comment on above: Result Comment: IG% - Immature Granulocytes (promyelocytes, myelocytes andmetamyelocytes) > 1% indicates that a LEFT SHIFT is Present. Performed By: #### L 500.4050, L100.0100 ####[facility] [address] [place], [address] Lymphocytes/100 WBC (Bld) 6.6 % Low 19-41 [facility] Comment on above: Performed By: #### L 500.4050, L100.0100 ####[facility] [address] [place], [address] MCH (RBC) [Entitic mass] 30.3 pg Normal 27.0-32.0 [facility] Comment on above: Performed By: #### L 500.4050, L100.0100 ####[facility] [address] [place], [address] MCHC (RBC) [Mass/Vol] 32.4 g/dL Normal 32-36 [facility] Comment on above: Performed By: #### L 500.4050, L100.0100 ####[facility] [address] [place], [address] MCV (RBC) [Entitic vol] 93.5 fL Normal 81-99 [facility] Comment on above: Performed By: #### L 500.4050, L100.0100 ####[facility] [address] [place], [address] Monocytes/100 WBC (Bld) 9.7 % Normal 0-10 [facility] Comment on above: Performed By: #### L 500.4050, L100.0100 ####[facility] [address] [place], [address] Neutrophils/100 WBC (Bld) 79.7 % High 47-70 [facility] Comment on above: Performed By: #### L 500.4050, L100.0100 ####[facility] [address] [place], [address] Nucleated RBC (Bld) [#/Vol] 0 10*3/uL Normal 0-5 [facility] Comment on above: Performed By: #### L 500.4050, L100.0100 ####[facility] [address] [place], [address] Platelet mean volume (Bld) [Entitic vol] 9.5 fL Normal 6.2-12.0 [facility] Comment on above: Performed By: #### L 500.4050, L100.0100 ####[facility] [address] [place], [address] Platelets (Bld) [#/Vol] 174 10*3/uL Normal 150-450 [facility] Comment on above: Performed By: #### L 500.4050, L100.0100 ####[facility] [address] [place], [address] RBC (Bld) [#/Vol] 3.53 10*6/uL Low 4.2-5.4 [facility] Comment on above: Performed By: #### L 500.4050, L100.0100 ####[facility] [address] [place], [address] RDW SD 57.2 fl High 35.1-43.9 [facility] Comment on above: Performed By: #### L 500.4050, L100.0100 ####[facility] [address] [place], [address] WBC (Bld) [#/Vol] 3.2 10*3/uL Low 4.4-11.0 [facility] Comment on above: Performed By: #### L 500.4050, L100.0100 ####[facility] [address] [place], [address] Comprehensive Metabolic Prof ilon 11-26-2024 Albumin [Mass/Vol] 2.5 g/dL Low 3.2-5.0 [facility] Comment on above: Performed By: #### L 500.4050, L100.0100 ####[facility] [address] [place], [address] Albumin/Globulin [Mass ratio] 0.7 {ratio} Low 0.9-2.4 [facility] Comment on above: Performed By: #### L 500.4050, L100.0100 ####[facility] [address] [place], [address] ALK P 109 U/L Normal 45-117 [facility] Comment on above: Performed By: #### L 500.4050, L100.0100 ####[facility] [address] [place], [address] ALT [Catalytic activity/Vol] 42 U/L Normal 13-56 [facility] Comment on above: Performed By: #### L 500.4050, L100.0100 ####[facility] [address] [place], [address] AST [Catalytic activity/Vol] 38 U/L High 15-37 [facility] Comment on above: Performed By: #### L 500.4050, L100.0100 ####[facility] [address] [place], [address] Bilirubin [Mass/Vol] 0.60 mg/dL Normal 0.20-1.00 [facility] Comment on above: Result Comment: For patients on eltrombopag therapy, use of Dimension [place] TBIL is not recommended. Performed By: #### L 500.4050, L100.0100 ####[facility] [address] [place], [address] BUN/CRE 28.2 RATIO High 10-20 [facility] Comment on above: Performed By: #### L 500.4050, L100.0100 ####[facility] [address] [place], [address] CA,Total 9.3 mg/dL Normal 8.5-10.1 [facility] Comment on above: Performed By: #### L 500.4050, L100.0100 ####[facility] [address] [place], [address] Chloride [Moles/Vol] 106 mmol/L Normal 98-107 [facility] Comment on above: Performed By: #### L 500.4050, L100.0100 ####[facility] [address] [place], [address] CO2 [Moles/Vol] 31.0 mmol/L Normal 21.0-32.0 [facility] Comment on above: Performed By: #### L 500.4050, L100.0100 ####[facility] [address] [place], [address] Creatinine [Mass/Vol] 0.67 mg/dL Normal 0.55-1.02 [facility] Comment on above: Result Comment: The validity of the calculated GFR GFRAA in patients over70 years has not been determined. Clinical correlation isessential. Performed By: #### L 500.4050, L100.0100 ####[facility] [address] [place], [address] ECRCL 67.30 ml/min Normal [facility] Comment on above: Performed By: #### L 500.4050, L100.0100 ####[facility] [address] [place], [address] EST GFR - AA 111 mL/min Normal >60 [facility] Comment on above: Result Comment: Afri can [place]ian GFR Calc Performed By: #### L 500.4050, L100.0100 ####[facility] [address] [place], [address] GAP 4 Low 5-15 [facility] Comment on above: Performed By: #### L 500.4050, L100.0100 ####[facility] [address] [place], [address] GFR/1.73 sq M.predicted among non-blacks MDRD (S/P/Bld) [Vol rate/Area] 92 mL/min/{1.73_m2} Normal >60 [facility] Comment on above: Result Comment: Non- GFR Calc Performed By: #### L 500.4050, L100.0100 ####[facility] [address] [place], [address] Globulin (S) [Mass/Vol] 3.7 g/dL Normal 2.2-4.2 [facility] Comment on above: Performed By: #### L 500.4050, L100.0100 ####[facility] [address] [place], [address] Glucose [Mass/Vol] 100 mg/dL Normal 74-106 [facility] Comment on above: Result Comment: Fast ing Glucose result from 100 to 125 mg/dLsuggests IMPAIRED HOMEOSTASIS per A.D.A. criteria. Performed By: #### L 500.4050, L100.0100 ####[facility] [address] [place], [address] Potassium [Moles/Vol] 3.4 mmol/L Low 3.5-5.1 [facility] Comment on above: Performed By: #### L 500.4050, L100.0100 ####[facility] [address] [place], [address] Sodium [Moles/Vol] 141 mmol/L Normal 136-145 [facility] Comment on above: Performed By: #### L 500.4050, L100.0100 ####[facility] [address] [place], [address] T PROT 6.2 g/dL Low 6.4-8.2 [facility] Comment on above: Performed By: #### L 500.4050, L100.0100 ####[facility] [address] [place], [address] Urea nitrogen [Mass/Vol] 19 mg/dL High 7-18 [facility] Comment on above: Performed By: #### L 500.4050, L100.0100 ####[facility] [address] [place], [address] Estimated glomerular filtrat ion rate (GFR) AmericanOrdered By: Em Torres on 11-26-2024 Estimated GFR (MDRD) Amer 111 mL/min >60 [facility] Comment on above: GFR Calc Oncology Visit Reporton Oncology Visit Report Normal [facility] OT General Evaluationon 10-22 OT General Evaluation Normal [facility] ONC Echo Completeon 11-16-19 ONC Echo Complete Normal [facility] CBC W/Diff, Automatedon 10-21 Absolute Lymph 0.14 X10 3/uL Low 0.83-4.51 [facility] Comment on above: Performed By: #### L 500.4050, L100.0100 ####[facility] [address] [place], [address] Absolute Neut 4.0 X10 3/uL Normal 2.0-7.7 [facility] Comment on above: Performed By: #### L 500.4050, L100.0100 ####[facility] [address] [place], [address] Basophils/100 WBC (Bld) 0.8 % Normal 0-1 [facility] Comment on above: Performed By: #### L 500.4050, L100.0100 ####[facility] [address] [place], [address] Eosinophils/100 WBC (Bld) 3.2 % Normal 0-5 [facility] Comment on above: Performed By: #### L 500.4050, L100.0100 ####[facility] [address] [place], [address] Erythrocyte distribution width (RBC) [Ratio] 14.7 % High 11.6-14.6 [facility] Comment on above: Performed By: #### L 500.4050, L100.0100 ####[facility] [address] [place], [address] Hematocrit (Bld) [Volume fraction] 34.7 % Low 37-47 [facility] Comment on above: Performed By: #### L 500.4050, L100.0100 ####[facility] [address] [place], [address] Hemoglobin (Bld) [Mass/Vol] 11.5 g/dL Low 12.0-15.0 [facility] Comment on above: Performed By: #### L 500.4050, L100.0100 ####[facility] [address] [place], [address] IG% 0.600 Normal 0.0-0.9 [facility] Comment on above: Result Comment: IG% - Immature Granulocytes (promyelocytes, myelocytes andmetamyelocytes) > 1% indicates that a LEFT SHIFT is Present. Performed By: #### L 500.4050, L100.0100 ####[facility] [address] [place], [address] Lymphocytes/100 WBC (Bld) 2.9 % Low 19-41 [facility] Comment on above: Performed By: #### L 500.4050, L100.0100 ####[facility] [address] [place], [address] MCH (RBC) [Entitic mass] 29.9 pg Normal 27.0-32.0 [facility] Comment on above: Performed By: #### L 500.4050, L100.0100 ####[facility] [address] [place], [address] MCHC (RBC) [Mass/Vol] 33.1 g/dL Normal 32-36 [facility] Comment on above: Performed By: #### L 500.4050, L100.0100 ####[facility] [address] [place], [address] MCV (RBC) [Entitic vol] 90.1 fL Normal 81-99 [facility] Comment on above: Performed By: #### L 500.4050, L100.0100 ####[facility] [address] [place], [address] Monocytes/100 WBC (Bld) 7.8 % Normal 0-10 [facility] Comment on above: Performed By: #### L 500.4050, L100.0100 ####[facility] [address] [place], [address] Neutrophils/100 WBC (Bld) 84.7 % High 47-70 [facility] Comment on above: Performed By: #### L 500.4050, L100.0100 ####[facility] [address] [place], [address] Nucleated RBC (Bld) [#/Vol] 0 10*3/uL Normal 0-5 [facility] Comment on above: Performed By: #### L 500.4050, L100.0100 ####[facility] [address] [place], [address] Platelet mean volume (Bld) [Entitic vol] 9.1 fL Normal 6.2-12.0 [facility] Comment on above: Performed By: #### L 500.4050, L100.0100 ####[facility] [address] [place], [address] Platelets (Bld) [#/Vol] 191 10*3/uL Normal 150-450 [facility] Comment on above: Performed By: #### L 500.4050, L100.0100 ####[facility] [address] [place], [address] RBC (Bld) [#/Vol] 3.85 10*6/uL Low 4.2-5.4 [facility] Comment on above: Performed By: #### L 500.4050, L100.0100 ####[facility] [address] [place], [address] RDW SD 48.3 fl High 35.1-43.9 [facility] Comment on above: Performed By: #### L 500.4050, L100.0100 ####[facility] [address] [place], [address] WBC (Bld) [#/Vol] 4.8 10*3/uL Normal 4.4-11.0 [facility] Comment on above: Performed By: #### L 500.4050, L100.0100 ####[facility] [address] [place], [address] Comprehensive Metabolic Prof [facility] 11-05-2024 Albumin [Mass/Vol] 2.8 g/dL Low 3.2-5.0 [facility] Comment on above: Performed By: #### L 500.4050, L100.0100 ####[facility] [address] [place], [address] Albumin/Globulin [Mass ratio] 0.7 {ratio} Low 0.9-2.4 [facility] Comment on above: Performed By: #### L 500.4050, L100.0100 ####[facility] [address] [place], [address] ALK P 93 U/L Normal 45-117 [facility] Comment on above: Performed By: #### L 500.4050, L100.0100 ####[facility] [address] [place], [address] ALT [Catalytic activity/Vol] 31 U/L Normal 13-56 [facility] Comment on above: Performed By: #### L 500.4050, L100.0100 ####[facility] [address] [place], [address] AST [Catalytic activity/Vol] 33 U/L Normal 15-37 [facility] Comment on above: Performed By: #### L 500.4050, L100.0100 ####[facility] [address] [place], [address] Bilirubin [Mass/Vol] 0.50 mg/dL Normal 0.20-1.00 [facility] Comment on above: Result Comment: For patients on eltrombopag therapy, use of Dimension [place] TBIL is not recommended. Performed By: #### L 500.4050, L100.0100 ####[facility] [address] [place], [address] BUN/CRE 24.0 RATIO High 10-20 [facility] Comment on above: Performed By: #### L 500.4050, L100.0100 ####[facility] [address] [place], [address] CA,Total 9.0 mg/dL Normal 8.5-10.1 [facility] Comment on above: Performed By: #### L 500.4050, L100.0100 ####[facility] [address] [place], [address] Chloride [Moles/Vol] 100 mmol/L Normal 98-107 [facility] Comment on above: Performed By: #### L 500.4050, L100.0100 ####[facility] [address] [place], [address] CO2 [Moles/Vol] 28.0 mmol/L Normal 21.0-32.0 [facility] Comment on above: Performed By: #### L 500.4050, L100.0100 ####[facility] [address] [place], [address] Creatinine [Mass/Vol] 0.79 mg/dL Normal 0.55-1.02 [facility] Comment on above: Result Comment: The validity of the calculated GFR GFRAA in patients over70 years has not been determined. Clinical correlation isessential. Performed By: #### L 500.4050, L100.0100 ####[facility] [address] [place], [address] ECRCL 68.91 ml/min Normal [facility] Comment on above: Performed By: #### L 500.4050, L100.0100 ####[facility] [address] [place], [address] EST GFR - AA 92 mL/min Normal >60 [facility] Comment on above: Result Comment: Afri can [place] GFR Calc Performed By: #### L 500.4050, L100.0100 ####[facility] [address] [place], [address] GAP 7 Normal 5-15 [facility] Comment on above: Performed By: #### L 500.4050, L100.0100 ####[facility] [address] [place], [address] GFR/1.73 sq M.predicted among non-blacks MDRD (S/P/Bld) [Vol rate/Area] 76 mL/min/{1.73_m2} Normal >60 [facility] Comment on above: Result Comment: Non- GFR Calc Performed By: #### L 500.4050, L100.0100 ####[facility] [address] [place], [address] Globulin (S) [Mass/Vol] 3.8 g/dL Normal 2.2-4.2 [facility] Comment on above: Performed By: #### L 500.4050, L100.0100 ####[facility] [address] [place], [address] Glucose [Mass/Vol] 148 mg/dL High 74-106 [facility] Comment on above: Result Comment: Fast ing Glucose result greater than or equal to 126 mg/dLsuggests DIABETES MELLITUS per A.D.A. criteria. Performed By: #### L 500.4050, L100.0100 ####[facility] [address] [place], [address] Potassium [Moles/Vol] 3.5 mmol/L Normal 3.5-5.1 [facility] Comment on above: Performed By: #### L 500.4050, L100.0100 ####[facility] [address] [place], [address] Sodium [Moles/Vol] 135 mmol/L Low 136-145 [facility] Comment on above: Performed By: #### L 500.4050, L100.0100 ####[facility] [address] [place], [address] T PROT 6.6 g/dL Normal 6.4-8.2 [facility] Comment on above: Performed By: #### L 500.4050, L100.0100 ####[facility] [address] [place], [address] Urea nitrogen [Mass/Vol] 19 mg/dL High 7-18 [facility] Comment on above: Performed By: #### L 500.4050, L100.0100 ####[facility] [address] [place], [address] Oncology Visit Reporton 01-1 Oncology Visit Report Normal [facility] Radiation Oncology Visiton 0 - Radiation Oncology Visit Normal [facility] CBC W/Diff, Automatedon 12-2 Absolute Lymph 0.15 X10 3/uL Low 0.83-4.51 [facility] Comment on above: Performed By: #### L 500.4050, L100.0100 ####[facility] [address] [place], [address] Absolute Neut 2.4 X10 3/uL Normal 2.0-7.7 [facility] Comment on above: Performed By: #### L 500.4050, L100.0100 ####[facility] [address] [place], [address] Basophils/100 WBC (Bld) 1.0 % Normal 0-1 [facility] Comment on above: Performed By: #### L 500.4050, L100.0100 ####[facility] [address] [place], [address] Eosinophils/100 WBC (Bld) 4.1 % Normal 0-5 [facility] Comment on above: Performed By: #### L 500.4050, L100.0100 ####[facility] [address] [place], [address] Erythrocyte distribution width (RBC) [Ratio] 14.2 % Normal 11.6-14.6 [facility] Comment on above: Performed By: #### L 500.4050, L100.0100 ####[facility] [address] [place], [address] Hematocrit (Bld) [Volume fraction] 32.2 % Low 37-47 [facility] Comment on above: Performed By: #### L 500.4050, L100.0100 ####[facility] [address] [place], [address] Hemoglobin (Bld) [Mass/Vol] 10.4 g/dL Low 12.0-15.0 [facility] Comment on above: Performed By: #### L 500.4050, L100.0100 ####[facility] [address] [place], [address] IG% 0.300 Normal 0.0-0.9 [facility] Comment on above: Result Comment: IG% - Immature Granulocytes (promyelocytes, myelocytes andmetamyelocytes) > 1% indicates that a LEFT SHIFT is Present. Performed By: #### L 500.4050, L100.0100 ####[facility] [address] [place], [address] Lymphocytes/100 WBC (Bld) 5.1 % Low 19-41 [facility] Comment on above: Performed By: #### L 500.4050, L100.0100 ####[facility] [address] [place], [address] MCH (RBC) [Entitic mass] 30.5 pg Normal 27.0-32.0 [facility] Comment on above: Performed By: #### L 500.4050, L100.0100 ####[facility] [address] [place], [address] MCHC (RBC) [Mass/Vol] 32.3 g/dL Normal 32-36 [facility] Comment on above: Performed By: #### L 500.4050, L100.0100 ####[facility] [address] [place], [address] MCV (RBC) [Entitic vol] 94.4 fL Normal 81-99 [facility] Comment on above: Performed By: #### L 500.4050, L100.0100 ####[facility] [address] [place], [address] Monocytes/100 WBC (Bld) 8.1 % Normal 0-10 [facility] Comment on above: Performed By: #### L 500.4050, L100.0100 ####[facility] [address] [place], [address] Neutrophils/100 WBC (Bld) 81.4 % High 47-70 [facility] Comment on above: Performed By: #### L 500.4050, L100.0100 ####[facility] [address] [place], [address] Nucleated RBC (Bld) [#/Vol] 0 10*3/uL Normal 0-5 [facility] Comment on above: Performed By: #### L 500.4050, L100.0100 ####[facility] [address] [place], [address] Platelet mean volume (Bld) [Entitic vol] 8.8 fL Normal 6.2-12.0 [facility] Comment on above: Performed By: #### L 500.4050, L100.0100 ####[facility] [address] [place], [address] Platelets (Bld) [#/Vol] 178 10*3/uL Normal 150-450 [facility] Comment on above: Performed By: #### L 500.4050, L100.0100 ####[facility] [address] [place], [address] RBC (Bld) [#/Vol] 3.41 10*6/uL Low 4.2-5.4 [facility] Comment on above: Performed By: #### L 500.4050, L100.0100 ####[facility] [address] [place] [place], [address] RDW SD 49.0 fl High 35.1-43.9 [facility] Comment on above: Performed By: #### L 500.4050, L100.0100 ####[facility] [address] [place], [address] WBC (Bld) [#/Vol] 3.0 10*3/uL Low 4.4-11.0 [facility] Comment on above: Performed By: #### L 500.4050, L100.0100 ####[facility] [address] [place], [address] Comprehensive Metabolic [facility] ilon 10-15-2024 Albumin [Mass/Vol] 2.7 g/dL Low 3.2-5.0 [facility] Comment on above: Performed By: #### L 500.4050, L100.0100 ####[facility] [address] [place], [address] Albumin/Globulin [Mass ratio] 0.9 {ratio} Normal 0.9-2.4 [facility] Comment on above: Performed By: #### L 500.4050, L100.0100 ####[facility] [address] [place], [address] ALK P 74 U/L Normal 45-117 [facility] Comment on above: Performed By: #### L 500.4050, L100.0100 ####[facility] [address] [place], [address] ALT [Catalytic activity/Vol] 22 U/L Normal 13-56 [facility] Comment on above: Performed By: #### L 500.4050, L100.0100 ####[facility] [address] [place], [address] AST [Catalytic activity/Vol] 26 U/L Normal 15-37 [facility] Comment on above: Performed By: #### L 500.4050, L100.0100 ####[facility] [address] [place], [address] Bilirubin [Mass/Vol] 0.30 mg/dL Normal 0.20-1.00 [facility] Comment on above: Result Comment: For patients on eltrombopag therapy, use of Dimension [place] TBIL is not recommended. Performed By: #### L 500.4050, L100.0100 ####[facility] [address] [place], [address] BUN/CRE 25.2 RATIO High 10-20 [facility] Comment on above: Performed By: #### L 500.4050, L100.0100 ####[facility] [address] [place], [address] CA,Total 9.3 mg/dL Normal 8.5-10.1 [facility] Comment on above: Performed By: #### L 500.4050, L100.0100 ####[facility] [address] [place], [address] Chloride [Moles/Vol] 104 mmol/L Normal 98-107 [facility] Comment on above: Performed By: #### L 500.4050, L100.0100 ####[facility] [address] [place], [address] CO2 [Moles/Vol] 33.0 mmol/L High 21.0-32.0 [facility] Comment on above: Performed By: #### L 500.4050, L100.0100 ####[facility] [address] [place], [address] Creatinine [Mass/Vol] 0.67 mg/dL Normal 0.55-1.02 [facility] Comment on above: Result Comment: The validity of the calculated GFR GFRAA in patients over70 years has not been determined. Clinical correlation isessential. Performed By: #### L 500.4050, L100.0100 ####[facility] [address] [place], [address] ECRCL 68.91 ml/min Normal [facility] Comment on above: Performed By: #### L 500.4050, L100.0100 ####[facility] [address] [place], [address] EST GFR - AA 111 mL/min Normal >60 [facility] Comment on above: Result Comment: Afri can [place] GFR Calc Performed By: #### L 500.4050, L100.0100 ####[facility] [address] [place], [address] GAP 3 Low 5-15 [facility] Comment on above: Performed By: #### L 500.4050, L100.0100 ####[facility] [address] [place], [address] GFR/1.73 sq M.predicted among non-blacks MDRD (S/P/Bld) [Vol rate/Area] 92 mL/min/{1.73_m2} Normal >60 [facility] Comment on above: Result Comment: Non- GFR Calc Performed By: #### L 500.4050, L100.0100 ####[facility] [address] [place], [address] Globulin (S) [Mass/Vol] 3.1 g/dL Normal 2.2-4.2 [facility] Comment on above: Performed By: #### L 500.4050, L100.0100 ####[facility] [address] [place], [address] Glucose [Mass/Vol] 119 mg/dL High 74-106 [facility] Comment on above: Result Comment: Fast ing Glucose result from 100 to 125 mg/dLsuggests IMPAIRED HOMEOSTASIS per A.D.A. criteria. Performed By: #### L 500.4050, L100.0100 ####[facility] [address] [place], [address] Potassium [Moles/Vol] 3.4 mmol/L Low 3.5-5.1 [facility] Comment on above: Performed By: #### L 500.4050, L100.0100 ####[facility] [address] [place], [address] Sodium [Moles/Vol] 139 mmol/L Normal 136-145 [facility] Comment on above: Performed By: #### L 500.4050, L100.0100 ####[facility] [address] [place], [address] T PROT 5.8 g/dL Low 6.4-8.2 [facility] Comment on above: Performed By: #### L 500.4050, L100.0100 ####[facility] [address] [place], [address] Urea nitrogen [Mass/Vol] 17 mg/dL Normal 7-18 [facility] Comment on above: Performed By: #### L 500.4050, L100.0100 ####[facility] [address] [place], [address] Oncology Visit Reporton 12-2 Oncology Visit Report Normal [facility] Radiation Oncology Visiton 1 12-13-2023 Radiation Oncology Visit Normal [facility] Radiation Oncology Visiton 1 12-12-2023 Radiation Oncology Visit Normal [facility] Radiation Oncology Visiton 1 12-08-2023 Radiation Oncology Visit Normal [facility] Radiation Oncology Visiton 1 12-01-2023 Radiation Oncology Visit Normal [facility] CBC W/Diff, Automatedon 12-0 Absolute Lymph 0.27 X10 3/uL Low 0.83-4.51 [facility] Comment on above: Performed By: #### L 100.0100, L500.4050 ####[facility] [address] [place], [address] Absolute Neut 3.4 X10 3/uL Normal 2.0-7.7 [facility] Comment on above: Performed By: #### L 100.0100, L500.4050 ####[facility] [address] [place], [address] Basophils/100 WBC (Bld) 1.0 % Normal 0-1 [facility] Comment on above: Performed By: #### L 100.0100, L500.4050 ####[facility] [address] [place], [address] Eosinophils/100 WBC (Bld) 3.6 % Normal 0-5 [facility] Comment on above: Performed By: #### L 100.0100, L500.4050 ####[facility] [address] [place], [address] Erythrocyte distribution width (RBC) [Ratio] 13.5 % Normal 11.6-14.6 [facility] Comment on above: Performed By: #### L 100.0100, L500.4050 ####[facility] [address] [place], [address] Hematocrit (Bld) [Volume fraction] 30.7 % Low 37-47 [facility] Comment on above: Performed By: #### L 100.0100, L500.4050 ####[facility] [address] [place], [address] Hemoglobin (Bld) [Mass/Vol] 9.9 g/dL Low 12.0-15.0 [facility] Comment on above: Performed By: #### L 100.0100, L500.4050 ####[facility] [address] [place], [address] IG% 0.200 Normal 0.0-0.9 [facility] Comment on above: Result Comment: IG% - Immature Granulocytes (promyelocytes, myelocytes andmetamyelocytes) > 1% indicates that a LEFT SHIFT is Present. Performed By: #### L 100.0100, L500.4050 ####[facility] [address] [place], [address] Lymphocytes/100 WBC (Bld) 6.6 % Low 19-41 [facility] Comment on above: Performed By: #### L 100.0100, L500.4050 ####[facility] [address] [place], [address] MCH (RBC) [Entitic mass] 30.8 pg Normal 27.0-32.0 [facility] Comment on above: Performed By: #### L 100.0100, L500.4050 ####[facility] [address] [place], [address] MCHC (RBC) [Mass/Vol] 32.2 g/dL Normal 32-36 [facility] Comment on above: Performed By: #### L 100.0100, L500.4050 ####[facility] [address] [place], [address] MCV (RBC) [Entitic vol] 95.6 fL Normal 81-99 [facility] Comment on above: Performed By: #### L 100.0100, L500.4050 ####[facility] [address] [place], [address] Monocytes/100 WBC (Bld) 5.3 % Normal 0-10 [facility] Comment on above: Performed By: #### L 100.0100, L500.4050 ####[facility] [address] [place], [address] Neutrophils/100 WBC (Bld) 83.3 % High 47-70 [facility] Comment on above: Performed By: #### L 100.0100, L500.4050 ####[facility] [address] [place], [address] Nucleated RBC (Bld) [#/Vol] 0 10*3/uL Normal 0-5 [facility] Comment on above: Performed By: #### L 100.0100, L500.4050 ####[facility] [address] [place], [address] Platelet mean volume (Bld) [Entitic vol] 9.1 fL Normal 6.2-12.0 [facility] Comment on above: Performed By: #### L 100.0100, L500.4050 ####[facility] [address] [place], [address] Platelets (Bld) [#/Vol] 287 10*3/uL Normal 150-450 [facility] Comment on above: Performed By: #### L 100.0100, L500.4050 ####[facility] [address] [place], [address] RBC (Bld) [#/Vol] 3.21 10*6/uL Low 4.2-5.4 [facility] Comment on above: Performed By: #### L 100.0100, L500.4050 ####[facility] [address] [place], [address] RDW SD 47.6 fl High 35.1-43.9 [facility] Comment on above: Performed By: #### L 100.0100, L500.4050 ####[facility] [address] [place], [address] WBC (Bld) [#/Vol] 4.1 10*3/uL Low 4.4-11.0 [facility] Comment on above: Performed By: #### L 100.0100, L500.4050 ####[facility] [address] [place], [address] Absolute Neut Normal 2.0-7.7 [facility] Comment on above: Result Comment: NO S PECIMEN RECEIVED Performed By: #### L 500.4050, L100.0100 ####[facility] [address] [place], [address] HCT Normal 37-47 [facility] Comment on above: Result Comment: NO S PECIMEN RECEIVED Performed By: #### L 500.4050, L100.0100 ####[facility] [address] [place], [address] HGB Normal 12.0-15.0 [facility] Comment on above: Result Comment: NO S PECIMEN RECEIVED Performed By: #### L 500.4050, L100.0100 ####[facility] [address] [place], [address] MCH Normal 27.0-32.0 [facility] Comment on above: Result Comment: NO S PECIMEN RECEIVED Performed By: #### L 500.4050, L100.0100 ####[facility] [address] [place], [address] MCHC Normal 32-36 [facility] Comment on above: Result Comment: NO S PECIMEN RECEIVED Performed By: #### L 500.4050, L100.0100 ####[facility] [address] [place], [address] MCV Normal 81-99 [facility] Comment on above: Result Comment: NO S PECIMEN RECEIVED Performed By: #### L 500.4050, L100.0100 ####[facility] [address] [place], [address] NEUT% Normal 47-70 [facility] Comment on above: Result Comment: NO S PECIMEN RECEIVED Performed By: #### L 500.4050, L100.0100 ####[facility] [address] [place], [address] PLT Normal 150-450 [facility] Comment on above: Result Comment: NO S PECIMEN RECEIVED Performed By: #### L 500.4050, L100.0100 ####[facility] [address] [place], [address] RBC Normal 4.2-5.4 [facility] Comment on above: Result Comment: NO S PECIMEN RECEIVED Performed By: #### L 500.4050, L100.0100 ####[facility] [address] [place], [address] RDW CV Normal 11.6-14.6 [facility] Comment on above: Result Comment: NO S PECIMEN RECEIVED Performed By: #### L 500.4050, L100.0100 ####[facility] [address] [place], [address] RDW SD Normal 35.1-43.9 [facility] Comment on above: Result Comment: NO S PECIMEN RECEIVED Performed By: #### L 500.4050, L100.0100 ####[facility] [address] [place], [address] WBC Normal 4.4-11.0 [facility] Comment on above: Result Comment: NO S PECIMEN RECEIVED Performed By: #### L 500.4050, L100.0100 ####[facility] [address] [place], [address] Comprehensive Metabolic Prof wvon 09-24-2024 Albumin [Mass/Vol] 2.9 g/dL Low 3.2-5.0 [facility] Comment on above: Performed By: #### L 100.0100, L500.4050 ####[facility] [address] [place], [address] Albumin/Globulin [Mass ratio] 1.1 {ratio} Normal 0.9-2.4 [facility] Comment on above: Performed By: #### L 100.0100, L500.4050 ####[facility] [address] [place], [address] ALK P 61 U/L Normal 45-117 [facility] Comment on above: Performed By: #### L 100.0100, L500.4050 ####[facility] [address] [place], [address] ALT [Catalytic activity/Vol] 19 U/L Normal 13-56 [facility] Comment on above: Performed By: #### L 100.0100, L500.4050 ####[facility] [address] [place], [address] AST [Catalytic activity/Vol] 18 U/L Normal 15-37 [facility] Comment on above: Performed By: #### L 100.0100, L500.4050 ####[facility] [address] [place], [address] Bilirubin [Mass/Vol] 0.40 mg/dL Normal 0.20-1.00 [facility] Comment on above: Result Comment: For patients on eltrombopag therapy, use of Dimension [place] TBIL is not recommended. Performed By: #### L 100.0100, L500.4050 ####[facility] [address] [place], [address] BUN/CRE 25.1 RATIO High 10-20 [facility] Comment on above: Performed By: #### L 100.0100, L500.4050 ####[facility] [address] [place], [address] CA,Total 9.2 mg/dL Normal 8.5-10.1 [facility] Comment on above: Performed By: #### L 100.0100, L500.4050 ####[facility] [address] [place], [address] Chloride [Moles/Vol] 106 mmol/L Normal 98-107 [facility] Comment on above: Performed By: #### L 100.0100, L500.4050 ####[facility] [address] [place], [address] CO2 [Moles/Vol] 30.0 mmol/L Normal 21.0-32.0 [facility] Comment on above: Performed By: #### L 100.0100, L500.4050 ####[facility] [address] [place], [address] Creatinine [Mass/Vol] 0.88 mg/dL Normal 0.55-1.02 [facility] Comment on above: Result Comment: The validity of the calculated GFR GFRAA in patients over70 years has not been determined. Clinical correlation isessential. Performed By: #### L 100.0100, L500.4050 ####[facility] [address] [place], [address] ECRCL 64.51 ml/min Normal [facility] Comment on above: Performed By: #### L 100.0100, L500.4050 ####[facility] [address] [place], [address] EST GFR - AA 82 mL/min Normal >60 [facility] Comment on above: Result Comment: Afri can [place] GFR Calc Performed By: #### L 100.0100, L500.4050 ####[facility] [address] [place], [address] GAP 5 Normal 5-15 [facility] Comment on above: Performed By: #### L 100.0100, L500.4050 ####[facility] [address] [place], [address] GFR/1.73 sq M.predicted among non-blacks MDRD (S/P/Bld) [Vol rate/Area] 68 mL/min/{1.73_m2} Normal >60 [facility] Comment on above: Result Comment: Non- GFR Calc Performed By: #### L 100.0100, L500.4050 ####[facility] [address] [place], [address] Globulin (S) [Mass/Vol] 2.7 g/dL Normal 2.2-4.2 [facility] Comment on above: Performed By: #### L 100.0100, L500.4050 ####[facility] [address] [place], [address] Glucose [Mass/Vol] 119 mg/dL High 74-106 [facility] Comment on above: Result Comment: Fast ing Glucose result from 100 to 125 mg/dLsuggests IMPAIRED HOMEOSTASIS per A.D.A. criteria. Performed By: #### L 100.0100, L500.4050 ####[facility] [address] [place], [address] Potassium [Moles/Vol] 3.6 mmol/L Normal 3.5-5.1 [facility] Comment on above: Performed By: #### L 100.0100, L500.4050 ####[facility] [address] [place], [address] Sodium [Moles/Vol] 141 mmol/L Normal 136-145 [facility] Comment on above: Performed By: #### L 100.0100, L500.4050 ####[facility] [address] [place], [address] T PROT 5.6 g/dL Low 6.4-8.2 [facility] Comment on above: Performed By: #### L 100.0100, L500.4050 ####[facility] [address] [place], [address] Urea nitrogen [Mass/Vol] 22 mg/dL High 7-18 [facility] Comment on above: Performed By: #### L 100.0100, L500.4050 ####[facility] [address] [place], [address] ALB Normal 3.2-5.0 [facility] Comment on above: Result Comment: COMP LETED 09/24/24 Performed By: #### L 500.4050, L100.0100 ####[facility] [address] [place], [address] ALK P Normal 45-117 [facility] Comment on above: Result Comment: COMP LETED 09/24/24 Performed By: #### L 500.4050, L100.0100 ####[facility] [address] [place], [address] ALT Normal 13-56 [facility] Comment on above: Result Comment: COMP LETED 09/24/24 Performed By: #### L 500.4050, L100.0100 ####[facility] [address] [place], [address] AST Normal 15-37 [facility] Comment on above: Result Comment: COMP LETED 09/24/24 Performed By: #### L 500.4050, L100.0100 ####[facility] [address] [place], [address] BUN Normal 7-18 [facility] Comment on above: Result Comment: COMP LETED 09/24/24 Performed By: #### L 500.4050, L100.0100 ####[facility] [address] [place], [address] BUN/CRE Normal 10-20 [facility] Comment on above: Result Comment: COMP LETED 09/24/24 Performed By: #### L 500.4050, L100.0100 ####[facility] [address] [place], [address] CA,Total Normal 8.5-10.1 [facility] Comment on above: Result Comment: COMP LETED 09/24/24 Performed By: #### L 500.4050, L100.0100 ####[facility] [address] [place], [address] CL Normal 98-107 [facility] Comment on above: Result Comment: COMP LETED 09/24/24 Performed By: #### L 500.4050, L100.0100 ####[facility] [address] [place], [address] CO2 Normal 21.0-32.0 [facility] Comment on above: Result Comment: COMP LETED 09/24/24 Performed By: #### L 500.4050, L100.0100 ####[facility] [address] [place], [address] CREAT,SERUM Normal 0.55-1.02 [facility] Comment on above: Result Comment: COMP LETED 09/24/24 Performed By: #### L 500.4050, L100.0100 ####[facility] [address] [place], [address] EST GFR Normal >60 [facility] Comment on above: Result Comment: COMP LETED 09/24/24 Performed By: #### L 500.4050, L100.0100 ####[facility] [address] [place], [address] EST GFR - AA Normal >60 [facility] Comment on above: Result Comment: COMP LETED 09/24/24 Performed By: #### L 500.4050, L100.0100 ####[facility] [address] [place], [address] GAP Normal 5-15 [facility] Comment on above: Result Comment: COMP LETED 09/24/24 Performed By: #### L 500.4050, L100.0100 ####[facility] [address] [place], [address] GLU Normal 74-106 [facility] Comment on above: Result Comment: COMP LETED 09/24/24 Performed By: #### L 500.4050, L100.0100 ####[facility] [address] [place], [address] Potassium Normal 3.5-5.1 [facility] Comment on above: Result Comment: COMP LETED 09/24/24 Performed By: #### L 500.4050, L100.0100 ####[facility] [address] [place], [address] T BILI Normal 0.20-1.00 [facility] Comment on above: Result Comment: COMP LETED 09/24/24 Performed By: #### L 500.4050, L100.0100 ####[facility] [address] [place], [address] T PROT Normal 6.4-8.2 [facility] Comment on above: Result Comment: COMP LETED 09/24/24 Performed By: #### L 500.4050, L100.0100 ####[facility] [address] [place], [address] Comprehensive Metabolic Profil Normal 136-145 [facility] Comment on above: Result Comment: COMP LETED 09/24/24 Performed By: #### L 500.4050, L100.0100 ####[facility] [address] [place], [address] Oncology Visit Reporton Oncology Visit Report Normal [facility] Radiation Oncology Visiton 1 11-24-2023 Radiation Oncology Visit Normal [facility] CK7 (add)on 09-22-2024 CK7 (add) Normal [facility] Comment on above: Performed By: #### P CK7. ####[facility] [address] [place], [address] Surgery Specimen Level Nicole 09-22-2024 Surgery Specimen Level IV Normal [facility] Comment on above: Performed By: #### P SUIV ####[facility] [address] [place], [address] Surgery Visit Reporton 09-22 Surgery Visit Report Normal [facility] PET/CT Tumor Base -Thigh Sub son 09-15-2024 PET/CT Tumor Base -Thigh Subs Normal [facility] CT Abd/Pelvis W/WO Contrasto n 09-04-2024 CT Abd/Pelvis W/WO Contrast Normal [facility] Ferritin measurementOrdered By: Em Torres on 08-24-2024 Ferritin [Mass/Vol] 699 ng/mL High 8-252 [facility] Iron (Unsp spec) [Mass/Mass] Ordered By: Em Torres on 08-24-2024 Iron [Mass/Vol] 30 ug/dL Low 50-170 [facility] Iron saturation [Mass fracti on]Ordered By: Em Torres on 08-24-2024 Iron Saturation 12.1 % Low 15.0-55.0 [facility] TIBCOrdered By: [facility] on 08-24-2024 Total Iron Binding Capacity 247 ug/dL Low 250-450 [facility] Vitamin B12 measurementOrder ed By: Em Torres on 08-24-2024 Cobalamin (Vitamin B12) [Mass/Vol] 531 pg/mL 211-911 [facility] Laboratory - Hematology and Cell countsOrdered By: Alley Walden on 07-23-2024 Anisocytosis Ql (Bld) 1+ [facility] Office Visiton 07-22-2024 Follow-up visit [id number] PedroSandi madhav 1955 F Date Provider Department Center 07/22/2024 [id number]-GAUYKLOCHAMP [facility] PLATE DRILLER None Family History Problem Relation Age of Onset Diabetes Mother Colon cancer Mother Hypertension Mother Osteoarthritis Mother Prostate cancer Father Hypertension Father Lupus Sister Fibromyalgia Sister Heart disease Maternal Grandfather Family Status - Relation Status Age at Mother Father Sister Maternal Grandfather Level of Service:23965 MS OFFICE/OUTPATIENT ESTABLISHED MOD MDM 30 MIN Reason for Visit and Comments: Endometrial Cancer [562] Normal [facility] Progress Noteon 07-22-2024 Progress Note CC: stage II Endomet rial cancer HPI: 68 y.o. Lyssa Vasquez female with a stage II endometrial cancer diagnosed in March 2023 after undergoing hysterectomy for complex hyperplasia without atypia. Final pathology showed unfortunately a grade 1 endometrial cancer, no lymph-vascular space invasion but cervical invasion was noted.. She was treated with robotic surgical staging with washings, pelvic empiric lymph node sampling in April 2023 which was negative for metastatic disease. Patient subsequently referred for radiation oncology and in May 2023 finished external beam as well as vaginal brachytherapy. She is now a year out from finishing therapy forher endometrial cancer. Patient underwent a planning CT scan in May 2023 which shows a fairly good size lower left periaortic lymphocyst. According to the patient and her family repeat imaging in February 2024 showed blockage of the left kidney. I personally reviewed the CT scan from February 2024 and it does show very minimal left hydronephrosis. Stent has subsequently been placed in the left kidney and is causing a lot of issues with bladder irritation as well as bladder pain as well as hematuria. Repeat imaging in June 2024 shows that the left lymphocyst is smaller, no evidence of recurrent disease is noted. The patient and her family states that a needle biopsy of the mass was done this year which showed no evidence of malignant cells. The patient and her family are quite frustrated about what has been going on with the kidney and would like some answers. The patient and her family were told by the urologist that stenting could no longer be done. Patient is most bothered by the stent with bladder irritation. She does deny any vaginal bleeding. Denies any adenopathy. Would also like to transfer her surveillance care back to Dr. Anton in [place] if at all possible. Recently finished chemotherapy in the neoadjuvant setting for breast cancer and is due to meet with the breast surgeon. Past Medical History: Diagnosis Date Anemia Anxiety Arthritis Back problem bulging disc-no surgery needed Chronic headaches in past Hypertension Mitral valve prolapse Past Surgical History: Procedure Laterality Date BREAST BIOPSY Right benign COLONOSCOPY ORTHOPEDIC SURGERY Right 2007 rotator cuff repair OTHER SURGICAL HISTORY pilonidal cyst TOTAL ABDOMINAL HYSTERECTOMY W/ BILATERAL SALPINGOOPHORECTOMY 04/01/2023 Social History Socioeconomic History Marital status: Tobacco Use Smoking status: Never Smokeless tobacco: Never Vaping Use Vaping status: Never Used Substance and Sexual Activity Alcohol use: Yes Comment: once a year Drug use: Never Current Outpatient Medications Medication Sig Dispense Refill lisinopril 20 MG tablet daily. Vibegron 75 MG tablet Take 75 mg by mouth every morning. No current facility-administered medications for this visit. Review of Systems Constitutional: Negative for appetite change and unexpected weight change. Genitourinary: Positive for dysuria, hematuria, pelvic pain and urgency. Negative for vaginal bleeding and vaginal discharge. Bladder pain and irritation Hematological: Negative for adenopathy. Patient has no known allergies. BP (!) 155/87 Pulse 90 Ht 1.676 m (5' 6) Wt 86.2 kg (190 lb) BMI 30.67 kg/m? Physical Exam Vitals and nursing note reviewed. Exam conducted with a therapy aide present. Constitutional: Appearance: Normal appearance. Abdominal: General: Abdomen is flat. Palpations: Abdomen is soft. Genitourinary: General: Normal vulva. Comments: Uterus/tubes/ovaries are absent Vagina: well healed cuff. No masses BME: no masses Bladder: no masses Urethra: midline and mobile Lymphadenopathy: Upper Body: Right upper body: No supraclavicular adenopathy. Left upper body: No supraclavicular adenopathy. Lower Body: No right inguinal adenopathy. No left inguinal adenopathy. Skin: General: Skin is warm and dry. Neurological: Mental Status: She is alert. Psychiatric: Mood and Affect: Mood normal. Behavior: Behavior normal. Reviewed several imaging studies dating back from May 2023 with the patient and her family showing the evolution of the cystic lesion in the left periaortic area which is most likely of benign lymphocyst. It is getting smaller. She has very mild hydronephrosis noted. Also that the most recent CT scan in June shows no evidence of recurrent disease. I also reviewed several notes from the radiation oncologist in the chart. I also personally called the urology physician with a note to have her call me back to discuss this case. Assessment: Stage II endometrial cancer currently with no evidence of recurrent disease 1 year status posttreatment Breast cancer being treated in [place] Irritation from ureteral stent placed for small left lower periaortic lymphocyst which has decreased in size P (more content not included)... Normal [facility] 36on 07-21-2024 36 ----- Message from Champ Giles MD sent at 07/20/2024 9:28 AM EDT ----- Please call patient and let her know that the small lymphocyst on the left side has gotten smaller. I know she only wants to be seen in the [place] office and were having some difficulty getting that scheduled. Tell her another option would be to follow-up with her primary ripsaw matcher Dr. Anton every 6 months in [place] for vaginal and pelvic exam. If she chooses this route let me know so that I can let Dr. Anton know what is going on ----- Message ----- From: Beata Oakes Sent: 07/20/2024 8:13 AM EDT To: Champ Giles MD; # Normal [facility] Acanthocyte detectionOrdered By: Alleytre TapiaWin on 06-25-2024 Acanthocytes 1+ [facility] Bite cells LM Ql (Bld)Ordere d By: Alley Win on 06-25-2024 Bite Cells RARE [facility] Bite cells detectionOrdered By: Alley Win on 06-25-2024 Bite cells LM Ql (Bld) RARE [facility] Blood schistocyte detection by light microscopyOrdered By: Alley Win on 06-25-2024 Schistocytes LM Ql (Bld) 1+ [facility] Dacrocytes LM Ql (Bld)Ordere d By: Alley Win on 06-25-2024 Tear Drop Cells 1+ [facility] Macrocytes Ql (Bld)Ordered B y: Alley Win on 06-25-2024 Macrocytosis 1+ [facility] Macrocytes detectionOrdered By: Alley Win on 06-25-2024 Macrocytes Ql (Bld) 1+ [facility] Microcytosis evaluation pane lOrdered By: Alley Win on 06-25-2024 Microcytosis 1+ [facility] Ovalocyte detectionOrdered B y: Alley Win on 06-25-2024 Ovalocytes LM Ql (Bld) 1+ [facility] Ovalocytes LM Ql (Bld)Ordere d By: Alley Win on 06-25-2024 Ovalocytes 1+ [facility] Platelet estimateOrdered By: Alley Win on 06-25-2024 Platelets LM Ql (Bld) SLT DEC ADEQ [facility] Platelets LM Ql (Bld)Ordered By: Alley Win on 06-25-2024 Platelet Estimate SLT DEC ADEQ [facility] Schistocytes LM Ql (Bld)Orde red By: Alley TapiaWin on 06-25-2024 Schistocytes 1+ [facility] Teardrop cell detectionOrder ed By: Alley Win on 06-25-2024 Dacrocytes LM Ql (Bld) 1+ [facility] Blood band neutrophil count as percentage of total leukocytesOrdered By: Alley TapiaWin on 06-18-2024 Band form neutrophils/100 WBC (Bld) 4 % 0-5 [facility] Blood lymphocytes/100 leukoc ytesOrdered By: Alley TapiaWin on 06-18-2024 Lymphocytes/100 WBC (Bld) 42 % High 19-41 [facility] Blood monocytes/100 leukocyt esOrdered By: Alley TapiaWin on 06-18-2024 Monocytes/100 WBC (Bld) 24 % High 0-10 [facility] Blood segmented neutrophils/ 100 leukocytesOrdered By: Alley TapiaWin on 06-18-2024 Segmented neutrophils/100 WBC (Bld) 30 % Low 47-70 [facility] Cells counted Molgen (Bld/Ti ss) [#]Ordered By: Alley Walden on 06-18-2024 Differential Total Cells Counted 100 MANUAL DIFF [facility] Hypochromatic red blood cell detectionOrdered By: Alley TapiaWin on 06-18-2024 Hypochromia Ql (Bld) 1+ [facility] Hypochromia Ql (Bld)Ordered By: Alleytre TapiaWin on 06-18-2024 Hypochromasia 1+ [facility] Segmented neutrophils/100 WB C (Bld)Ordered By: Alley TapiaWin on 06-18-2024 Neutrophils/100 WBC (Bld) 30 % Low 47-70 [facility] Total cell countOrdered By: Alley Walden on 06-18-2024 Cells counted Molgen (Bld/Tiss) [#] 100 MANUAL DIFF [facility] 36on 04-17-2024 36 Patient requesting Jason boudreaux only. Scheduled for 07/08@[address] Giles. She agrees with the plan and verbalizes understanding. [facility] 36 Spoke to patient and her follow up is 05/27 but she was diagnosed with breast cancer and her chemo txs will not be finished until the middle of June. She would like to see Dr. Giles then. Normal [facility] 36 Patient would like a call back from medical staff regarding the rescheduling of her appt with Daisy. Stated she will have chemo appointments until June and was not sure when would be best to come in. Please advise, thank you! Normal [facility] Dohle bodies detectionOrdere d By: Em Torres on 04-16-2024 Dohle body LM Ql (Bld) 2+ [facility] Dohle body LM Ql (Bld)Ordere d By: Em Torres on 04-16-2024 Dohle Bodies 2+ [facility] Toxic granules LM Ql (Bld)Or dered By: Em Torres on 04-16-2024 Toxic Granulation 1+ [facility] Toxic leukocyte granulation detectionOrdered By: Em Torres on 04-16-2024 Toxic granules LM Ql (Bld) 1+ [facility] Cholesterol measurementOrder ed By: Em Torres on 04-09-2024 Cholesterol [Mass/Vol] 190 mg/dL <200 [facility] Comment on above: <200 mg/dL Desirable 200-240 mg/dL Borderline >240 mg/dL High Risk High density lipoprotein (HD L) measurementOrdered By: Em Torres on 04-09-2024 Cholesterol in HDL [Mass/Vol] 80 mg/dL >40 [facility] Comment on above: The drugs N-Acetylcy steine and Metamizole may falsely depress this assay. Reference Range HDL <40 mg/dL Low HDL Cholesterol HDL >or= 60 mg/dL High HDL Cholesterol Low density lipoprotein (LDL ) cholesterol measurementOrdered By: Em Torres on 04-09-2024 Cholesterol in LDL [Mass/Vol] 97 mg/dL 0-130 [facility] Triglycerides measurementOrd ered By: Em Torres on 04-09-2024 Triglyceride [Mass/Vol] 65 mg/dL <199 [facility] Comment on above: The drugs N-Acetylcy steine and Metamizole may falsely depress this assay.Serum Triglycerides Reference Interval Normal <150 mg/dL Borderline high 150 - 199 mg/dL High 200 - 499 mg/dL Very High > or = 500 mg/dL Very low density lipoprotein (VLDL) cholesterol measurementOrdered By: Em Torres on 04-09-2024 Very low density lipoprotein (VLDL) cholesterol measurement 13 mg/dL 5-40 [facility] VLDL Cholesterol 13 mg/dL 5-40 [facility] 36on 04-03-2024 36 Left Vm x 2 Normal [facility] 36on 04-02-2024 36 Patient states that she was diagnosed with breast cancer in January and has been doing chemo. An enlarged lymph node and mass within kidney/ureter were found. [facility]'s oncologist at [facility], Dr. Em Torres, would like Dr. Cassidy's opinion. Their call back is [phone]. Normal [facility] Blood eosinophils/100 leukoc ytesOrdered By: Alley Walden on 03-26-2024 Eosinophils/100 WBC (Bld) 3 % 0-5 [facility] Blood metamyelocytes/100 susanne kocytesOrdered By: Alley Walden on 03-26-2024 Metamyelocytes/100 WBC (Bld) 3 % High 0-1 [facility] Myelocyte %Ordered By: Alley Walden on 03-26-2024 Myelocytes/100 WBC (Bld) 3 % High 0-0 [facility] Office Visiton 11-27-2023 Follow-up visit [id number] PedroSandi madhav 1955 F Date Provider Department Center 11/27/2023 [facility] None Family History Problem Relation Age of Onset Diabetes Mother Colon cancer Mother Hypertension Mother Osteoarthritis Mother Prostate cancer Father Hypertension Father Lupus Sister Fibromyalgia Sister Heart disease Maternal Grandfather Family Status - Relation Status Age at Mother Father Sister Maternal Grandfather Level of Service:87503 [place] OFFICE/OUTPATIENT ESTABLISHED LOW MDM 20 MIN Reason for Visit and Comments: Follow-up [664633] - Pt has no concerns Normal [facility] Progress Noteon 11-27-2023 Progress Note @LOGOIMAGE@ Chief Complaint Patient presents with Follow-up Pt has no concerns HISTORY OF THE PRESENT ILLNESS: Lyssa Vasquez is a 68 y.o. with a history of stage II grade 1 endometrial cancer status post surgical excision who presents today for routine surveillance of disease. She was initially diagnosed in 05/14/23 and managed with completion surgical staging with pelvic and parotic lymph node sampling along with abdominal cytology. Pt also underwent pelvic radiotherapy from 06/25/23-07/29/[address] New Ibrahim in [place]. Brachytherapy was completed 08/06/23. 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 Interval History Since the patient's last visit, she has been doing well and is without complaints. She does not have: Abdominal pain, abdominal distention, pelvic pain, bloating, constipation, nausea/vomiting, increased abdominal girth, early satiety, weight loss, weight gain, vaginal bleeding, vaginal discharge, changes with urination. Pt sees urology. Was having urination issues, had UTI which was treated and was also taking Urogesic blue which pt completed therapy. No urination issues recently. Has 2 grown children and 4 grand daughters. Past Medical History: Diagnosis Date Anemia Anxiety Arthritis Back problem bulging disc-no surgery needed Chronic headaches in past Hypertension Mitral valve prolapse Past Surgical History: Procedure Laterality Date BREAST BIOPSY Right benign COLONOSCOPY ORTHOPEDIC SURGERY Right 2007 rotator cuff repair OTHER SURGICAL HISTORY pilonidal cyst TOTAL ABDOMINAL HYSTERECTOMY W/ BILATERAL SALPINGOOPHORECTOMY 04/01/2023 @MEDCMED@ Allergies as of 11/27/2023 (No Known Allergies) REVIEW OF SYSTEMS: As per the HPI, otherwisenegative. Vitals: 11/27/23 0925 BP: (!) 170/77 Pulse: 81 Body mass index is 33.01 kg/m?. Physical Exam Constitutional: Appearance: Normal appearance. HENT: Head: Normocephalic. Pulmonary: Effort: Pulmonary effort is normal. Abdominal: Palpations: Abdomen is soft. Genitourinary: Comments: .Uterus, cervix, bilateral adnexa surgically absent. No lesions or nodularity of the vaginal cuff, posterior cul-de-sac or rectovaginal vault. Skin: General: Skin is warm and dry. Neurological: Mental Status: She is alert and oriented to person, place, and time. Psychiatric: Mood and Affect: Mood normal. Behavior: Behavior normal. ASSESSMENT/PLAN: 68 y.o. with stage II grade 1 endometrial cancer, currently without evidence of recurrence of disease. Continue routine surveillance of disease every 6 months for the next 5 years for surveillance visits. Educated pt about dilator use-2-3 times per week for 10 minutes each time. The patient had an opportunity to ask questions, all of which were answered to the best of my ability. She is in agreement with the above noted plan. >51% of the visit was spent in direct face to face counseling and coordination of care. Normal [facility] 36on 10-15-2023 36 LVM to r/s either wi th attending physician same day OR with provider on a different day - provider not in office [facility] No Panel InformationOrdered By: New Ibrahim on 06-11-2023 Estimated GFR (MDRD) Amer 123 mL/min >60 [facility] Comment on above: GFR Calc Estimated GFR (MDRD) Non-Af Amer 102 mL/min >60 [facility] Comment on above: Non- GFR Calc Serum or plasma creatinine m easurement (mass/volume)Ordered By: New Ibrahim on 06-11-2023 Creatinine [Mass/Vol] 0.62 mg/dL 0.55-1.02 [facility] Comment on above: The validity of the calculated GFR & GFRAA in patients over 70 years has not been determined. Clinical correlation is essential. No Panel InformationOrdered By: Champ Giles on 04-30-2023 Estimated GFR (MDRD) Amer 101 mL/min >60 [facility] Comment on above: GFR Calc Estimated GFR (MDRD) Non-Af Amer 83 mL/min >60 [facility] Comment on above: Non- GFR Calc Serum or plasma creatinine m easurement (mass/volume)Ordered By: Champ Giles on 04-30-2023 Creatinine [Mass/Vol] 0.74 mg/dL 0.55-1.02 [facility] Comment on above: The validity of the calculated GFR & GFRAA in patients over 70 years has not been determined. Clinical correlation is essential. Basophil percentageOrdered B y: Samantha Lott on 04-17-2023 Bilirubin [Mass/Vol] 0.40 mg/dL 0.20-1.00 [facility] Comment on above: For patients on eltr ombopag therapy, use of Dimension [place] TBIL is not recommended. Chloride [Moles/Vol] 100 mmol/L 98-107 [facility] Glucose [Mass/Vol] 100 mg/dL 74-106 [facility] Comment on above: Fasting Glucose resu lt from 100 to 125 mg/dL suggests IMPAIRED HOMEOSTASIS per A.D.A. criteria. Potassium [Moles/Vol] 3.6 mmol/L 3.5-5.1 [facility] Protein [Mass/Vol] 7.3 g/dL 6.4-8.2 [facility] Sodium [Moles/Vol] 135 mmol/L 136-145 [facility] Laboratory - Chemistry and C hemistry - challengeOrdered By: Samantha Lott on 04-17-2023 ALP [Catalytic activity/Vol] 67 U/L 45-117 [facility] ALT [Catalytic activity/Vol] 28 U/L 13-56 [facility] CO2 [Moles/Vol] 27.0 mmol/L 21.0-32.0 [facility] Globulin (S) [Mass/Vol] 3.7 g/dL 2.2-4.2 [facility] Urea nitrogen/Creatinine [Mass ratio] 21.9 mg/mg 10-20 [facility] No Panel InformationOrdered By: Samantha Lott on 04-17-2023 Estimated GFR (MDRD) Amer 95 mL/min >60 [facility] Comment on above: GFR Calc Estimated GFR (MDRD) Non-Af Amer 78 mL/min >60 [facility] Comment on above: Non- GFR Calc Miscellaneous Test Comment MAILED SPECIMEN [facility] Serum or plasma albumin mireille urement (mass/volume)Ordered By: Samantha Lott on 04-17-2023 Albumin [Mass/Vol] 3.6 g/dL 3.2-5.0 [facility] Serum or plasma albumin/glob ulin mass ratioOrdered By: Samantha Lott on 04-17-2023 Albumin/Globulin [Mass ratio] 1.0 {ratio} 0.9-2.4 [facility] Serum or plasma calcium mireille urement (mass/volume)Ordered By: Samantha Lott on 04-17-2023 Calcium [Mass/Vol] 9.6 mg/dL 8.5-10.1 [facility] Serum or plasma creatinine m easurement (mass/volume)Ordered By: Samantha Lott on 04-17-2023 Creatinine [Mass/Vol] 0.78 mg/dL 0.55-1.02 [facility] Comment on above: The validity of the calculated GFR & GFRAA in patients over 70 years has not been determined. Clinical correlation is essential. Serum or plasma urea nitroge n measurement (mass/volume)Ordered By: Samantha Lott on 04-17-2023 Urea nitrogen [Mass/Vol] 17 mg/dL 7-18 [facility] Thin prep Papanicolaou smear with manual screeningOrdered By: Samantha Lott on 04-17-2023 Thin prep Papanicolaou smear with manual screening 18 U/L 15-37 [facility] Thin prep Papanicolaou smear with manual screening 8 5-15 [facility] Absolute lymphocyte countOrd ered By: Samantha Lott on 04-03-2023 Lymphocytes Auto (Unsp spec) [#/Vol] 1.19 10*3/uL 0.83-4.51 [facility] Basophil percentageOrdered B y: Samantha Lott on 04-03-2023 Basophils/100 WBC (Bld) 0.1 % 0-1 [facility] Eosinophils/100 WBC (Bld) 0.0 % 0-5 [facility] Neutrophils (Bld) [#/Vol] 13.2 10*3/uL 2.0-7.7 [facility] Neutrophils/100 WBC (Bld) 89.1 % 47-70 [facility] WBC (Bld) [#/Vol] 14.8 10*3/uL 4.4-11.0 [facility] Blood erythrocytes count (nu mber/volume)Ordered By: Samantha Lott on 04-03-2023 RBC (Bld) [#/Vol] 3.76 10*6/uL 4.2-5.4 [facility] Blood hemoglobin measurement (mass/volume)Ordered By: Samantha Lott on 04-03-2023 Hemoglobin (Bld) [Mass/Vol] 10.4 g/dL 12.0-15.0 [facility] Blood lymphocytes/100 leukoc ytesOrdered By: Samantha Lott on 04-03-2023 Lymphocytes/100 WBC (Bld) 8.0 % 19-41 [facility] Blood monocytes/100 leukocyt esOrdered By: Samantha Lott on 04-03-2023 Monocytes/100 WBC (Bld) 2.2 % 0-10 [facility] Blood platelet mean volumeOr dered By: Samantha Lott on 04-03-2023 Platelet mean volume (Bld) [Entitic vol] 10.2 fL 6.2-12.0 [facility] Determination of erythrocyte mean corpuscular volume (MCV)Ordered By: Samantha Lott on 04-03-2023 MCV (RBC) [Entitic vol] 85.6 fL 81-99 [facility] Hematocrit Auto (Bld) [Volum e fraction]Ordered By: Samantha Lott on 04-03-2023 Hematocrit (Bld) [Volume fraction] 32.2 % 37-47 [facility] Laboratory - Hematology and Cell countsOrdered By: Samantha Lott on 04-03-2023 Erythrocyte distribution width (RBC) [Entitic vol] 43.6 fL 35.1-43.9 [facility] Erythrocyte distribution width (RBC) [Ratio] 13.9 % 11.6-14.6 [facility] Immature granulocytes/100 WBC (Bld) 0.600 % 0.0-0.9 [facility] Comment on above: IG% - Immature Granu locytes (promyelocytes, myelocytes and metamyelocytes) > 1% indicates that a LEFT SHIFT is Present. MCH (RBC) [Entitic mass] 27.7 pg 27.0-32.0 [facility] Nucleated RBC/100 WBC (Bld) [Ratio] 0 % 0-5 [facility] MCHC Auto (RBC) [Mass/Vol]Or dered By: Samantha Lott on 04-03-2023 MCHC (RBC) [Mass/Vol] 32.3 g/dL 32-36 [facility] Platelets bldOrdered By: Noris Lott on 04-03-2023 Platelets (Bld) [#/Vol] 352 10*3/uL 150-450 [facility] Anaerobic cultureOrdered By: Samantha Lott on 04-02-2023 Bacteria identified Anaer cx Nom (Unsp spec) No anaerobic bacteria isolated. [facility] Bacteria identified Cx Nom ( Wound)Ordered By: Samantha Lott on 04-02-2023 Wound Culture Staphylococcus lugdunensis [facility] Basophil percentageOrdered B y: See Babin on 04-02-2023 Potassium [Moles/Vol] 3.1 mmol/L 3.5-5.1 [facility] Glucose Glucometer (BldC) [M ass/Vol]Ordered By: Samantha Lott on 04-02-2023 Glucose [Mass/Vol] 109 mg/dL 74-106 [facility] Comment on above: MANAGEMENT OF PATIEN T CARE PER NURSING PROTOCOL Gram stain for investigation of transfusion reactionOrdered By: Samantha Lott on 04-02-2023 Microscopic observation Gram stain Nom (Unsp spec) [facility] Basophil percentageOrdered B y: Samantha Lott on 03-25-2023 Bilirubin [Mass/Vol] 0.40 mg/dL 0.20-1.00 [facility] Comment on above: For patients on eltr ombopag therapy, use of Dimension [place] TBIL is not recommended. Chloride [Moles/Vol] 106 mmol/L 98-107 [facility] Glucose [Mass/Vol] 108 mg/dL 74-106 [facility] Comment on above: Fasting Glucose resu lt from 100 to 125 mg/dL suggests IMPAIRED HOMEOSTASIS per A.D.A. criteria. Protein [Mass/Vol] 6.9 g/dL 6.4-8.2 [facility] Sodium [Moles/Vol] 133 mmol/L 136-145 [facility] Dilute Alexander's viper venom timeOrdered By: Samantha Lott on 03-25-2023 dRVVT Coag (PPP) [Time] 31.4 s 0.0-47.0 [facility] INR in Blood by Coagulation assayOrdered By: See Babin on 03-25-2023 INR Coag (Bld) [Relative time] 1.0 {INR} [facility] Laboratory - Chemistry and C hemistry - challengeOrdered By: Samantha Lott on 03-25-2023 ALP [Catalytic activity/Vol] 56 U/L 45-117 [facility] ALT [Catalytic activity/Vol] 19 U/L 13-56 [facility] CO2 [Moles/Vol] 31.0 mmol/L 21.0-32.0 [facility] Globulin (S) [Mass/Vol] 3.5 g/dL 2.2-4.2 [facility] Urea nitrogen/Creatinine [Mass ratio] 19.8 mg/mg 10-20 [facility] - Chemistry and C hemistry - challengeOrdered By: See Babin on 03-25-2023 Magnesium [Mass/Vol] 2.1 mg/dL 1.6-2.6 [facility] - CoagulationOrde red By: See Babin on 03-25-2023 aPTT Coag (Bld) [Time] 27.3 s 24.1-36.2 [facility] PT Coag (PPP) [Time] 13.0 s 11.7-14.9 [facility] No Panel InformationOrdered By: Samantha Lott on 03-25-2023 Anti-Cardiolipin IgM Antibody < 9 MPL U/mL 0-12 [facility] Comment on above: Negative: <13 Indete rminate: 13 - 20 Low-Med Positive: >20 - 80 High Positive: >80 Estimated GFR (MDRD) Amer 115 mL/min >60 [facility] Comment on above: GFR Calc Estimated GFR (MDRD) Non-Af Amer 95 mL/min >60 [facility] Comment on above: Non- GFR Calc Serum beta 2 glycoprotein 1 IgA antibody detectionOrdered By: Samantha Lott on 03-25-2023 Beta 2 glycoprotein 1 IgA Ql (S) <9 0-25 [facility] Comment on above: Result Units: GPI Ig A unitsThe reference interval reflects a 3SD or 99th percentileinterval, which is thought to represent a potentiallyclinically significant result in accordance with theInternational Consensus Statement on the classificationcriteria for definitive antiphospholipid syndrome (APS). JThromb Haem 2006;4:295-306. Serum beta 2 glycoprotein 1 IgG antibody detectionOrdered By: Samantha Lott on 03-25-2023 Beta 2 glycoprotein 1 IgG Ql (S) <9 0-20 [facility] Comment on above: Result Units: GPI Ig G unitsThe reference interval reflects a 3SD or 99th percentileinterval, which is thought to represent a potentiallyclinically significant result in accordance with theInternational Consensus Statement on the classificationcriteria for definitive antiphospholipid syndrome (APS). JThromb Haem 2006;4:295-306. Serum beta 2 glycoprotein 1 IgM antibody detectionOrdered By: Samantha Lott on 03-25-2023 Beta 2 glycoprotein 1 IgM Ql (S) <9 0-32 [facility] Comment on above: Result Units: GPI Ig M unitsThe reference interval reflects a 3SD or 99th percentileinterval, which is thought to represent a potentiallyclinically significant result in accordance with theInternational Consensus Statement on the classificationcriteria for definitive antiphospholipid syndrome (APS). JThromb Haem 2006;4:295-306.Performed at: - [facility] [id number] Director: Manish Sandoval MD, Phone: [phone] at: [facility] [id number] Director: Rafael Saldana PhD, Phone: [phone] Serum cardiolipin IgG antibo dy assay by immunoassay (units/volume)Ordered By: Samantha Lott on 03-25-2023 Cardiolipin IgG IA Qn (S) < 9 GPL U/mL 0-14 [facility] Comment on above: Negative: <15 Indete rminate: 15 - 20 Low-Med Positive: >20 - 80 High Positive: >80 Serum or plasma albumin mireille urement (mass/volume)Ordered By: Samantha Lott on 03-25-2023 Albumin [Mass/Vol] 3.4 g/dL 3.2-5.0 [facility] Serum or plasma albumin/glob ulin mass ratioOrdered By: Samantha Lott on 03-25-2023 Albumin/Globulin [Mass ratio] 1.0 {ratio} 0.9-2.4 [facility] Serum or plasma calcium mireille urement (mass/volume)Ordered By: Samantha Ltot on 03-25-2023 Calcium [Mass/Vol] 9.3 mg/dL 8.5-10.1 [facility] Serum or plasma cardiolipin IgA antibody assay (units/volume)Ordered By: Samantha Lott on 03-25-2023 Cardiolipin IgA Qn < 9 APL U/mL 0-11 [facility] Comment on above: Negative: <12 Indete rminate: 12 - 20 Low-Med Positive: >20 - 80 High Positive: >80 Serum or plasma creatinine m easurement (mass/volume)Ordered By: Samantha Lott on 03-25-2023 Creatinine [Mass/Vol] 0.66 mg/dL 0.55-1.02 [facility] Comment on above: The validity of the calculated GFR & GFRAA in patients over 70 years has not been determined. Clinical correlation is essential. Serum or plasma urea nitroge n measurement (mass/volume)Ordered By: Samantha Lott on 03-25-2023 Urea nitrogen [Mass/Vol] 13 mg/dL 7-18 [facility] Thin prep Papanicolaou smear with manual screeningOrdered By: Samantha Lott on 03-25-2023 Thin prep Papanicolaou smear with manual screening 22 U/L 15-37 [facility] Thin prep Papanicolaou smear with manual screening -4 5-15 [facility] Thin prep Papanicolaou smear with manual screening 32.7 sec 0.0-47.6 [facility] Thin prep Papanicolaou smear with manual screening 0.78 Ratio 0.00-1.34 [facility] Thin prep Papanicolaou smear with manual screening 32.0 sec 0.0-43.5 [facility] Thin prep Papanicolaou smear with manual screening Comment: . [facility] Comment on above: No lupus anticoagula nt was detected. Thrombin time in platelet po or plasmaOrdered By: Samantha Lott on 03-25-2023 Thrombin time Coag (PPP) [Time] 16.5 sec 0.0-23.0 [facility] Absolute lymphocyte countOrd ered By: Dr. Gomez on 02-11-2023 Lymphocytes Auto (Unsp spec) [#/Vol] 2.21 10*3/uL 0.83-4.51 [facility] Basophil percentageOrdered B y: Dr. Gomez on 02-11-2023 Basophil percentage 0-5 SEEN /hpf 0-5 [facility] Basophils/100 WBC (Bld) 0.6 % 0-1 [facility] Chloride [Moles/Vol] 93 mmol/L 98-107 [facility] Eosinophils/100 WBC (Bld) 0.3 % 0-5 [facility] Glucose [Mass/Vol] 96 mg/dL 74-106 [facility] Lactate [Moles/Vol] 0.9 mmol/L 0.4-2.0 [facility] Neutrophils (Bld) [#/Vol] 5.7 10*3/uL 2.0-7.7 [facility] Neutrophils/100 WBC (Bld) 65.1 % 47-70 [facility] Potassium [Moles/Vol] 2.8 mmol/L 3.5-5.1 [facility] Sodium [Moles/Vol] 129 mmol/L 136-145 [facility] WBC (Bld) [#/Vol] 8.7 10*3/uL 4.4-11.0 [facility] Bilirubin Test strip Ql (U)O rdered By: Dr. Gomez on 02-11-2023 Bilirubin Ql (U) Negative Negative [facility] Blood erythrocytes count (nu mber/volume)Ordered By: Dr. Gomez on 02-11-2023 RBC (Bld) [#/Vol] 4.43 10*6/uL 4.2-5.4 [facility] Blood hemoglobin measurement (mass/volume)Ordered By: Dr. Gomez on 02-11-2023 Hemoglobin (Bld) [Mass/Vol] 12.5 g/dL 12.0-15.0 [facility] Blood lymphocytes/100 leukoc ytesOrdered By: Dr. Gomez on 02-11-2023 Lymphocytes/100 WBC (Bld) 25.4 % 19-41 [facility] Blood monocytes/100 leukocyt esOrdered By: Dr. Gomez on 02-11-2023 Monocytes/100 WBC (Bld) 8.3 % 0-10 [facility] Blood platelet mean volumeOr dered By: Dr. Gomez on 02-11-2023 Platelet mean volume (Bld) [Entitic vol] 9.3 fL 6.2-12.0 [facility] Determination of erythrocyte mean corpuscular volume (MCV)Ordered By: Dr. Gomez on 02-11-2023 MCV (RBC) [Entitic vol] 83.1 fL 81-99 [facility] Hematocrit Auto (Bld) [Volum e fraction]Ordered By: Dr. Gomez on 02-11-2023 Hematocrit (Bld) [Volume fraction] 36.8 % 37-47 [facility] Ketones Test strip Ql (U)Ord ered By: Dr. Gomez on 02-11-2023 Ketones Ql (U) Negative Negative [facility] Laboratory - Chemistry and C hemistry - challengeOrdered By: Dr. Gomez on 02-11-2023 CO2 [Moles/Vol] 32.0 mmol/L 21.0-32.0 [facility] Urea nitrogen/Creatinine [Mass ratio] 20.1 mg/mg 10-20 [facility] Laboratory - Hematology and Cell countsOrdered By: Dr. Gomez on 02-11-2023 Erythrocyte distribution width (RBC) [Entitic vol] 40.8 fL 35.1-43.9 [facility] Erythrocyte distribution width (RBC) [Ratio] 13.3 % 11.6-14.6 [facility] Immature granulocytes/100 WBC (Bld) 0.300 % 0.0-0.9 [facility] Comment on above: IG% - Immature Granu locytes (promyelocytes, myelocytes and metamyelocytes) > 1% indicates that a LEFT SHIFT is Present. MCH (RBC) [Entitic mass] 28.2 pg 27.0-32.0 [facility] Nucleated RBC/100 WBC (Bld) [Ratio] 0 % 0-5 [facility] MCHC Auto (RBC) [Mass/Vol]Or dered By: Dr. Gomez on 02-11-2023 MCHC (RBC) [Mass/Vol] 34.0 g/dL 32-36 [facility] Mucus LM Ql (Urine sed)Order ed By: Dr. Gomez on 02-11-2023 Mucus Ql (Urine sed) 0 SEEN /hpf [facility] Nitrite Test strip Ql (U)Ord ered By: Dr. Gomez on 02-11-2023 Nitrite Ql (U) Negative Negative [facility] No Panel InformationOrdered By: Dr. Gomez on 02-11-2023 Estimated Creatinine Clearance Calc 50.41 ml/min [facility] Estimated GFR (MDRD) Amer 128 mL/min >60 [facility] Comment on above: GFR Calc Estimated GFR (MDRD) Non-Af Amer 106 mL/min >60 [facility] Comment on above: Non- GFR Calc Platelets bldOrdered By: Dr. Gomez on 02-11-2023 Platelets (Bld) [#/Vol] 339 10*3/uL 150-450 [facility] Protein Test strip Ql (U)Ord ered By: Dr. Gomez on 02-11-2023 Protein Ql (U) Negative Negative [facility] Serum or plasma calcium mireille urement (mass/volume)Ordered By: Dr. Gomez on 02-11-2023 Calcium [Mass/Vol] 9.0 mg/dL 8.5-10.1 [facility] Serum or plasma creatinine m easurement (mass/volume)Ordered By: Dr. Gomez on 02-11-2023 Creatinine [Mass/Vol] 0.60 mg/dL 0.55-1.02 [facility] Comment on above: The validity of the calculated GFR & GFRAA in patients over 70 years has not been determined. Clinical correlation is essential. Serum or plasma urea nitroge n measurement (mass/volume)Ordered By: Dr. Gomez on 02-11-2023 Urea nitrogen [Mass/Vol] 12 mg/dL 7-18 [facility] Squamous epithelial cells de tection in urine sediment by light microscopyOrdered By: Dr. Gomez on 02-11-2023 Epithelial cells.squamous LM Ql (Urine sed) 0-5 SEEN /hpf 5-10 [facility] Thin prep Papanicolaou smear with manual screeningOrdered By: Dr. Gomez on 02-11-2023 Thin prep Papanicolaou smear with manual screening 279 mOsm/KG 280-301 [facility] Thin prep Papanicolaou smear with manual screening 4 5-15 [facility] Urine blood detectionOrdered By: Dr. Gomez on 02-11-2023 RBC Ql (U) 10 /ul Negative [facility] RBC Ql (U) 0-5 SEEN /hpf 0-5 [facility] Urine clarityOrdered By: Dr. Gomez on 02-11-2023 Clarity (U) Sl. Cloudy Clear [facility] Urine color determinationOrd ered By: Dr. Gomez on 02-11-2023 Color (U) Yellow Yellow [facility] Urine glucose detectionOrder ed By: Dr. Gomez on 02-11-2023 Glucose Ql (U) Normal mg/dl Normal [facility] Urine leukocyte esterase det ection by dipstickOrdered By: Dr. Gomez on 02-11-2023 Leukocyte esterase Test strip Ql (U) 25 /ul Negative [facility] Urine osmolality measurement Ordered By: Zechariah Gomez on 02-11-2023 Osmolality (U) [Osmolality] 172 mOsm/KG >50 [facility] Comment on above: Normal Urine Referen ce Ranges Random: 50 - 1200 mOsm/kg H20 depending on fluid intake Random: >850 mOsm/kg after 12 hour fluid restriction 24 hour: ~300 - 900 mOsm/kg H2O Urine pHOrdered By: Dr. Tony morales on 02-11-2023 pH (U) 7.0 [pH] 5.0 - 8.0 [facility] Urine sediment bacteria coun t by microscopy (number/high power field)Ordered By: Dr. Gomez on 02-11-2023 Bacteria LM.HPF (Urine sed) [#/Area] 0 /[HPF] None Seen [facility] Urine specific gravity measu rementOrdered By: Dr. Gomez on 02-11-2023 Specific gravity (U) [Rel density] 1.005 1.002-1.030 [facility] Urobilinogen Auto test strip Ql (U)Ordered By: Dr. Gomez on 02-11-2023 Urobilinogen Ql (U) Normal mg/dl Normal [facility] Cervical or vagninal specime n microscopic examination by cytology stain (reported asOrdered By: Dr. Lott on 01-29-2023 Cytology report Cyto stain Doc (Cvx/Vag) Comment . [facility] Comment on above: The Pap smear is a s creening test designed to aid in thedetection of premalignant and malignant conditions of theuterine cervix. It is not a diagnostic procedure andshould not be used as the sole means of detecting cervicalcancer. Both false-positive and false-negative reports dooccur. Detection in cervical specim en of any of human papilloma virus (HPV) 16, 18, 31, 33,Ordered By: Dr. Lott on 01-29-2023 HPV 16+18+31+33+35+39+45+51 +52+56+58+59+66+68 DNA Probe+sig amp Ql (Cvx) Negative Negative [facility] Comment on above: This nucleic acid am plification test detects fourteen high-risk HPV types (16,18,31,33,35,39,45,51,52,56,58,59,66,68)without differentiation. Laboratory - CytologyOrdered By: Dr. Lott on 01-29-2023 Heavy Threader Cyto stain Nom (Cvx/Vag) [ID] Comment . [facility] Comment on above: Cristino Springer, [facility] otechnologist (ASCP) Laboratory - Miscellaneous t estsOrdered By: Dr. Lott on 01-29-2023 Service comment (Unsp spec) [Interp] Comment . [facility] Comment on above: This liquid based Th inPrep(R) pap test was screened withthe use of an image guided system. Service comment (Unsp spec) [Interp] . . [facility] Liquid-based cerv Pap + CT/G C by CHEL w reflex to high-risk HPV for ASCUSOrdered By: Dr. Lott on 01-29-2023 Cytology report Cyto stain.thin prep Doc (Cvx/Vag) Comment . [facility] Comment on above: Criteria not met, HP V Genotype not performed.Performed at: - [facility] [id number] Director: Trini Rivas MD, Phone: [phone] at: = - [facility] [id number] Director: Trini Rivas MD, Phone: [phone] No Panel InformationOrdered By: Dr. Lott on 01-29-2023 Pathology report final diagnosis Narrative Comment . [facility] Comment on above: NEGATIVE FOR INTRAEP ITHELIAL LESION OR MALIGNANCY. Basophil percentageon 2021 Chloride [Moles/Vol] 102 mmol/L 98-107 [facility] Work Phone: Glucose [Mass/Vol] 105 mg/dL 74-106 [facility] Work Phone: Comment on above: Fasting Glucose resu lt from 100 to 125 mg/dL suggests IMPAIRED HOMEOSTASIS per A.D.A. criteria. Potassium [Moles/Vol] 3.5 mmol/L 3.5-5.1 [facility] Work Phone: Sodium [Moles/Vol] 140 mmol/L 136-145 [facility] Work Phone: Laboratory - Chemistry and C hemistry - challengeon 04-17-2022 CO2 [Moles/Vol] 31.0 mmol/L 21.0-32.0 [facility] Work Phone: Urea nitrogen/Creatinine [Mass ratio] 23.7 mg/mg 10-20 [facility] Work Phone: No Panel Informationon 04-17 Estimated GFR (MDRD) Amer 120 mL/min >60 [facility] Work Phone: Comment on above: GFR Calc Estimated GFR (MDRD) Non-Af Amer 99 mL/min >60 [facility] Work Phone: Comment on above: Non- GFR Calc Serum or plasma calcium mireille urement (mass/volume)on 04-17-2022 Calcium [Mass/Vol] 9.1 mg/dL 8.5-10.1 [facility] Work Phone: Serum or plasma creatinine m easurement (mass/volume)on 04-17-2022 Creatinine [Mass/Vol] 0.63 mg/dL 0.55-1.02 [facility] Work Phone: Comment on above: The validity of the calculated GFR & GFRAA in patients over 70 years has not been determined. Clinical correlation is essential. Serum or plasma urea nitroge n measurement (mass/volume)on 04-17-2022 Urea nitrogen [Mass/Vol] 15 mg/dL 7-18 [facility] Work Phone: Thin prep Papanicolaou smear with manual screeningon 04-17-2022 Thin prep Papanicolaou smear with manual screening 7 5-15 [facility] Work Phone: Basophil percentageon 2021 Bilirubin [Mass/Vol] 0.40 mg/dL 0.20-1.00 [facility] Work Phone: Comment on above: For patients on eltr ombopag therapy, use of Dimension [place] TBIL is not recommended. Chloride [Moles/Vol] 99 mmol/L 98-107 [facility] Work Phone: Glucose [Mass/Vol] 106 mg/dL 74-106 [facility] Work Phone: Comment on above: Fasting Glucose resu lt from 100 to 125 mg/dL suggests IMPAIRED HOMEOSTASIS per A.D.A. criteria. Potassium [Moles/Vol] 3.0 mmol/L 3.5-5.1 [facility] Work Phone: Protein [Mass/Vol] 6.7 g/dL 6.4-8.2 [facility] Work Phone: Sodium [Moles/Vol] 137 mmol/L 136-145 [facility] Work Phone: Laboratory - Chemistry and C hemistry - challengeon 03-06-2022 ALP [Catalytic activity/Vol] 43 U/L 45-117 [facility] Work Phone: ALT [Catalytic activity/Vol] 27 U/L 13-56 [facility] Work Phone: CO2 [Moles/Vol] 31.0 mmol/L 21.0-32.0 [facility] Work Phone: Globulin (S) [Mass/Vol] 3.2 g/dL 2.2-4.2 [facility] Work Phone: Urea nitrogen/Creatinine [Mass ratio] 22.1 mg/mg 10-20 [facility] Work Phone: No Panel Informationon 03-06 Estimated GFR (MDRD) Amer 96 mL/min >60 [facility] Work Phone: Comment on above: GFR Calc Estimated GFR (MDRD) Non-Af Amer 79 mL/min >60 [facility] Work Phone: Comment on above: Non- GFR Calc Serum or plasma albumin mireille urement (mass/volume)on 03-06-2022 Albumin [Mass/Vol] 3.5 g/dL 3.2-5.0 [facility] Work Phone: Serum or plasma albumin/glob ulin mass ratioon 03-06-2022 Albumin/Globulin [Mass ratio] 1.1 {ratio} 0.9-2.4 [facility] Work Phone: Serum or plasma calcium mireille urement (mass/volume)on 03-06-2022 Calcium [Mass/Vol] 9.4 mg/dL 8.5-10.1 [facility] Work Phone: Serum or plasma creatinine m easurement (mass/volume)on 03-06-2022 Creatinine [Mass/Vol] 0.77 mg/dL 0.55-1.02 [facility] Work Phone: Comment on above: The validity of the calculated GFR & GFRAA in patients over 70 years has not been determined. Clinical correlation is essential. Serum or plasma urea nitroge n measurement (mass/volume)on 03-06-2022 Urea nitrogen [Mass/Vol] 17 mg/dL 7-18 [facility] Work Phone: Thin prep Papanicolaou smear with manual screeningon 03-06-2022 Thin prep Papanicolaou smear with manual screening 24 U/L 15-37 [facility] Work Phone: Thin prep Papanicolaou smear with manual screening 7 5-15 [facility] Work Phone: Vital Signs Date Time Vital Sign Value Performing Clinician Faci lity 08-12-2025 09:52-0400 Body height 167.[address] Lex Bryant DO Work Phone: [facility] 08-12-2025 09:52-0400 Body mass index (BMI) [Ratio] 25.8 kg/m2 Dr. Lex Bryant DO Work Phone: [facility] 08-12-2025 09:52-0400 Body temperature 98 [degF] Dr. Lex Bryant DO Work Phone: [facility] 08-12-2025 09:52-0400 Body weight 72.[address] Lex Bryant DO Work Phone: [facility] 08-12-2025 09:52-0400 Diastolic blood pressure 80 mm[Hg] Dr. Lex Bryant DO Work Phone: [facility] 08-12-2025 09:52-0400 Heart rate 82 /min Dr. Lex Byrant DO Work Phone: [facility] 08-12-2025 09:52-0400 Respiratory rate 16 /min Dr. Lex Bryant DO Work Phone: [facility] 08-12-2025 09:52-0400 SaO2% (BldA) [Mass fraction] 99 % Dr. Lex Bryant DO Work Phone: [facility] 08-12-2025 09:52-0400 Systolic blood pressure 138 mm[Hg] Dr. Lex Bryant DO Work Phone: [facility] 08-10-2025 15:46-0400 Body mass index (BMI) [Ratio] 26 kg/m2 Dr. Lex Bryant DO Work Phone: [facility] 08-10-2025 15:46-0400 Body temperature 98.1 [degF] Dr. Lex Bryant DO Work Phone: [facility] 08-10-2025 15:46-0400 Body weight 73.[address] Lex Bryant DO Work Phone: [facility] 08-10-2025 15:46-0400 Diastolic blood pressure 76 mm[Hg] Dr. Lex Bryant DO Work Phone: [facility] 08-10-2025 15:46-0400 Heart rate 88 /min Dr. Lex Bryant DO Work Phone: [facility] 08-10-2025 15:46-0400 Respiratory rate 18 /min Dr. Lex Bryant DO Work Phone: [facility] 08-10-2025 15:46-0400 SaO2% (BldA) [Mass fraction] 98 % Dr. Lex Bryant DO Work Phone: [facility] 08-10-2025 15:46-0400 Systolic blood pressure 136 mm[Hg] Dr. Lex Bryant DO Work Phone: [facility] 08-05-2025 15:06-0400 Body mass index (BMI) [Ratio] 26.1 kg/m2 Dr. Lex Bryant DO Work Phone: [facility] 08-05-2025 15:06-0400 Body temperature 97.9 [degF] Dr. Lex Bryant DO Work Phone: [facility] 08-05-2025 15:06-0400 Body weight 73.[address] Lex Bryant DO Work Phone: [facility] 08-05-2025 15:06-0400 Diastolic blood pressure 76 mm[Hg] Dr. Lex Bryant DO Work Phone: [facility] 08-05-2025 15:06-0400 Heart rate 84 /min Dr. Lex Bryant DO Work Phone: [facility] 08-05-2025 15:06-0400 Respiratory rate 18 /min Dr. Lex Bryant DO Work Phone: [facility] 08-05-2025 15:06-0400 SaO2% (BldA) [Mass fraction] 98 % Dr. Lex Bryant DO Work Phone: [facility] 08-05-2025 15:06-0400 Systolic blood pressure 149 mm[Hg] Dr. Lex Bryant DO Work Phone: [facility] 07-30-2025 09:11-0400 Body temperature 98.1 [degF] Dr. Lex Bryant DO Work Phone: [facility] 07-30-2025 09:11-0400 Body weight 72.[address] Lex Bryant DO Work Phone: [facility] 07-30-2025 09:11-0400 Diastolic blood pressure 92 mm[Hg] Dr. Lex Bryant DO Work Phone: [facility] 07-30-2025 09:11-0400 Heart rate 84 /min Dr. Lex Bryant DO Work Phone: [facility] 07-30-2025 09:11-0400 Respiratory rate 18 /min Dr. Lex Bryant DO Work Phone: [facility] 07-30-2025 09:11-0400 SaO2% (BldA) [Mass fraction] 99 % Dr. Lex Bryant DO Work Phone: [facility] 07-30-2025 09:11-0400 Systolic blood pressure 180 mm[Hg] Dr. Lex Bryant DO Work Phone: [facility] 07-26-2025 13:44-0400 Body height 167.[address] Lex Bryant DO Work Phone: [facility] 07-26-2025 13:44-0400 Body mass index (BMI) [Ratio] 26.3 kg/m2 Dr. Lex Bryant DO Work Phone: [facility] 07-26-2025 13:44-0400 Body weight 74.[address] Lex Brynat DO Work Phone: [facility] 07-26-2025 13:44-0400 Diastolic blood pressure 77 mm[Hg] Dr. Lex Bryant DO Work Phone: [facility] 07-26-2025 13:44-0400 Systolic blood pressure 160 mm[Hg] Dr. Lex Bryant DO Work Phone: [facility] 06-24-2025 12:46-0400 Body temperature 96.9 [degF] Dr. Lex Bryant DO Work Phone: [facility] 06-24-2025 12:46-0400 Diastolic blood pressure 62 mm[Hg] Dr. Lex Bryant DO Work Phone: [facility] 06-24-2025 12:46-0400 Heart rate 91 /min Dr. Lex Bryant DO Work Phone: [facility] 06-24-2025 12:46-0400 Respiratory rate 16 /min Dr. Lex Bryant DO Work Phone: [facility] 06-24-2025 12:46-0400 SaO2% (BldA) [Mass fraction] 97 % Dr. Lex Bryant DO Work Phone: [facility] 06-24-2025 12:46-0400 Systolic blood pressure 164 mm[Hg] Dr. Lex Bryant DO Work Phone: [facility] 06-24-2025 10:32-0400 Body height 167.[address] Lex Bryant DO Work Phone: [facility] 06-24-2025 10:29-0400 Body mass index (BMI) [Ratio] 26.8 kg/m2 Dr. Lex Bryant DO Work Phone: [facility] 06-24-2025 10:29-0400 Body temperature 98.4 [degF] Dr. Lex Bryant DO Work Phone: [facility] 06-24-2025 10:29-0400 Body weight 75.[address] Lex Bryant DO Work Phone: [facility] 06-24-2025 10:29-0400 Diastolic blood pressure 79 mm[Hg] Dr. Lex Bryant DO Work Phone: [facility] 06-24-2025 10:29-0400 Heart rate 84 /min Dr. Lex Bryant DO Work Phone: [facility] 06-24-2025 10:29-0400 Respiratory rate 18 /min Dr. Lex Bryant DO Work Phone: [facility] 06-24-2025 10:29-0400 SaO2% (BldA) [Mass fraction] 96 % Dr. Lex Bryant DO Work Phone: [facility] 06-24-2025 10:29-0400 Systolic blood pressure 158 mm[Hg] Dr. Lex Bryant DO Work Phone: [facility] 06-24-2025 09:36-0400 Body height 167.[address] Lex Bryant DO Work Phone: [facility] 06-24-2025 09:36-0400 Body mass index (BMI) [Ratio] 26.8 kg/m2 Dr. Lex Bryant DO Work Phone: [facility] 06-24-2025 09:36-0400 Body temperature 98.4 [degF] Dr. Lex Bryant DO Work Phone: [facility] 06-24-2025 09:36-0400 Body weight 75.[address] Lex Bryant DO Work Phone: [facility] 06-24-2025 09:36-0400 Diastolic blood pressure 80 mm[Hg] Dr. Lex Bryant DO Work Phone: [facility] 06-24-2025 09:36-0400 Heart rate 86 /min Dr. Lex Bryant DO Work Phone: [facility] 06-24-2025 09:36-0400 Respiratory rate 16 /min Dr. Lex Bryant DO Work Phone: [facility] 06-24-2025 09:36-0400 SaO2% (BldA) [Mass fraction] 95 % Dr. Lex Bryant DO Work Phone: [facility] 06-24-2025 09:36-0400 Systolic blood pressure 154 mm[Hg] Dr. Lex Bryant DO Work Phone: [facility] 06-17-2025 12:57-0400 Body height 167.[address] Lex Bryant DO Work Phone: [facility] 06-17-2025 12:57-0400 Body mass index (BMI) [Ratio] 26.8 kg/m2 Dr. Lex Bryant DO Work Phone: [facility] 06-17-2025 12:57-0400 Body weight 75.[address] Lex Bryant DO Work Phone: [facility] 06-17-2025 12:57-0400 Diastolic blood pressure 80 mm[Hg] Dr. Lex Bryant DO Work Phone: [facility] 06-17-2025 12:57-0400 Heart rate 86 /min Dr. Lex Bryant DO Work Phone: [facility] 06-17-2025 12:57-0400 SaO2% (BldA) [Mass fraction] 96 % Dr. Lex Bryant DO Work Phone: [facility] 06-17-2025 12:57-0400 Systolic blood pressure 149 mm[Hg] Dr. Lex Bryant DO Work Phone: [facility] 06-03-2025 11:14-0400 Body height 167.[address] Lex Bryant DO Work Phone: [facility] 06-03-2025 11:14-0400 Body mass index (BMI) [Ratio] 25.9 kg/m2 Dr. Lex Bryant DO Work Phone: [facility] 06-03-2025 11:14-0400 Body temperature 98.1 [degF] Dr. Lex Bryant DO Work Phone: [facility] 06-03-2025 11:14-0400 Body weight 72.[address] Lex Bryant DO Work Phone: [facility] 06-03-2025 11:14-0400 Diastolic blood pressure 80 mm[Hg] Dr. Lex Bryant DO Work Phone: [facility] 06-03-2025 11:14-0400 Heart rate 79 /min Dr. Lex Bryant DO Work Phone: [facility] 06-03-2025 11:14-0400 Respiratory rate 18 /min Dr. Lex Bryant DO Work Phone: [facility] 06-03-2025 11:14-0400 SaO2% (BldA) [Mass fraction] 97 % Dr. Lex Bryant DO Work Phone: [facility] 06-03-2025 11:14-0400 Systolic blood pressure 154 mm[Hg] Dr. Lex Bryant DO Work Phone: [facility] 05-13-2025 13:37-0400 Diastolic blood pressure 58 mm[Hg] Dr. Lex Brynat DO Work Phone: [facility] 05-13-2025 13:37-0400 Heart rate 80 /min Dr. Lex Bryant DO Work Phone: [facility] 05-13-2025 13:37-0400 Respiratory rate 16 /min Dr. Lex Bryant DO Work Phone: [facility] 05-13-2025 13:37-0400 Systolic blood pressure 133 mm[Hg] Dr. Lex Bryant DO Work Phone: [facility] 05-13-2025 10:49-0400 Body height 167.[address] Lex Bryant DO Work Phone: [facility] 05-13-2025 10:49-0400 Body mass index (BMI) [Ratio] 26.2 kg/m2 Dr. Lex Bryant DO Work Phone: [facility] 05-13-2025 10:49-0400 Body temperature 98.4 [degF] Dr. Lex Bryant DO Work Phone: [facility] 05-13-2025 10:49-0400 Body weight 73.[address] Lex Bryant DO Work Phone: [facility] 05-13-2025 10:49-0400 Diastolic blood pressure 82 mm[Hg] Dr. Lex Bryant DO Work Phone: [facility] 05-13-2025 10:49-0400 Heart rate 79 /min Dr. Lex Bryant DO Work Phone: [facility] 05-13-2025 10:49-0400 Respiratory rate 16 /min Dr. Lex Bryant DO Work Phone: [facility] 05-13-2025 10:49-0400 SaO2% (BldA) [Mass fraction] 98 % Dr. Lex Bryant DO Work Phone: [facility] 05-13-2025 10:49-0400 Systolic blood pressure 136 mm[Hg] Dr. Lex Bryant DO Work Phone: [facility] 04-22-2025 13:32-0400 Diastolic blood pressure 64 mm[Hg] Dr. Lex Bryant DO Work Phone: [facility] 04-22-2025 13:32-0400 Heart rate 84 /min Dr. Lex Bryant DO Work Phone: [facility] 04-22-2025 13:32-0400 Systolic blood pressure 148 mm[Hg] Dr. Lex Bryant DO Work Phone: [facility] 04-22-2025 11:07-0400 Body height 167.[address] Lex Bryant DO Work Phone: [facility] 04-22-2025 11:07-0400 Body mass index (BMI) [Ratio] 26.6 kg/m2 Dr. Lex Bryant DO Work Phone: [facility] 04-22-2025 11:07-0400 Body temperature 97.9 [degF] Dr. Lex Bryant DO Work Phone: [facility] 04-22-2025 11:07-0400 Body weight 75.[address] Lex Bryant DO Work Phone: [facility] 04-22-2025 11:07-0400 Diastolic blood pressure 89 mm[Hg] Dr. Lex Bryant DO Work Phone: [facility] 04-22-2025 11:07-0400 Heart rate 73 /min Dr. Lex Bryant DO Work Phone: [facility] 04-22-2025 11:07-0400 Respiratory rate 16 /min Dr. Lex Bryant DO Work Phone: [facility] 04-22-2025 11:07-0400 SaO2% (BldA) [Mass fraction] 96 % Dr. Lex Bryant DO Work Phone: [facility] 04-22-2025 11:07-0400 Systolic blood pressure 162 mm[Hg] Dr. Lex Bryant DO Work Phone: [facility] 04-01-2025 11:13-0400 Body height 167.[address] Lex Bryant DO Work Phone: [facility] 04-01-2025 11:13-0400 Body mass index (BMI) [Ratio] 26.4 kg/m2 Dr. Lex Bryant DO Work Phone: [facility] 04-01-2025 11:13-0400 Body temperature 98.2 [degF] Dr. Lex Bryant DO Work Phone: [facility] 04-01-2025 11:13-0400 Body weight 74.[address] Lex Bryant DO Work Phone: [facility] 04-01-2025 11:13-0400 Diastolic blood pressure 79 mm[Hg] Dr. Lex Bryant DO Work Phone: [facility] 04-01-2025 11:13-0400 Heart rate 81 /min Dr. Lex Bryant DO Work Phone: [facility] 04-01-2025 11:13-0400 Respiratory rate 18 /min Dr. Lex Bryant DO Work Phone: [facility] 04-01-2025 11:13-0400 SaO2% (BldA) [Mass fraction] 97 % Dr. eLx Bryant DO Work Phone: [facility] 04-01-2025 11:13-0400 Systolic blood pressure 160 mm[Hg] Dr. Lex Bryant DO Work Phone: [facility] 03-17-2025 13:13-0400 Body height 167.[address] Lex Bryant DO Work Phone: [facility] 03-17-2025 13:13-0400 Body mass index (BMI) [Ratio] 26.8 kg/m2 Dr. Lex Bryant DO Work Phone: [facility] 03-17-2025 13:13-0400 Body weight 75.[address] Lex Bryant DO Work Phone: [facility] 03-17-2025 13:13-0400 Diastolic blood pressure 88 mm[Hg] Dr. Lex Bryant DO Work Phone: [facility] 03-17-2025 13:13-0400 Heart rate 86 /min Dr. Lex Bryant DO Work Phone: [facility] 03-17-2025 13:13-0400 Respiratory rate 16 /min Dr. Lex Bryant DO Work Phone: [facility] 03-17-2025 13:13-0400 SaO2% (BldA) [Mass fraction] 97 % Dr. Lex Bryant DO Work Phone: [facility] 03-17-2025 13:13-0400 Systolic blood pressure 170 mm[Hg] Dr. Lex Bryant DO Work Phone: [facility] 03-11-2025 13:59-0400 Body temperature 96.9 [degF] Dr. Lex Bryant DO Work Phone: [facility] 03-11-2025 13:59-0400 Diastolic blood pressure 73 mm[Hg] Dr. Lex Bryant DO Work Phone: [facility] 03-11-2025 13:59-0400 Heart rate 81 /min Dr. Lex Bryant DO Work Phone: [facility] 03-11-2025 13:59-0400 Respiratory rate 16 /min Dr. Lex Bryant DO Work Phone: [facility] 03-11-2025 13:59-0400 SaO2% (BldA) [Mass fraction] 98 % Dr. Lex Bryant DO Work Phone: [facility] 03-11-2025 13:59-0400 Systolic blood pressure 150 mm[Hg] Dr. Lex Bryant DO Work Phone: [facility] 03-11-2025 11:16-0400 Body mass index (BMI) [Ratio] 27.1 kg/m2 Dr. Lex Bryant DO Work Phone: [facility] 03-11-2025 11:16-0400 Body temperature 98.1 [degF] Dr. Lex Bryant DO Work Phone: [facility] 03-11-2025 11:16-0400 Body weight 76.[address] Lex Bryant DO Work Phone: [facility] 03-11-2025 11:16-0400 Diastolic blood pressure 95 mm[Hg] Dr. Lex Bryant DO Work Phone: [facility] 03-11-2025 11:16-0400 Heart rate 85 /min Dr. Lex Bryant DO Work Phone: [facility] 03-11-2025 11:16-0400 Respiratory rate 18 /min Dr. Lex Bryant DO Work Phone: [facility] 03-11-2025 11:16-0400 SaO2% (BldA) [Mass fraction] 97 % Dr. Lex Bryant DO Work Phone: [facility] 03-11-2025 11:16-0400 Systolic blood pressure 164 mm[Hg] Dr. Lex Bryant DO Work Phone: [facility] 03-11-2025 10:34-0400 Body weight 76.[address] Lex Bryant DO Work Phone: [facility] 02-18-2025 11:40-0400 Body height 167.[address] Lex Bryant DO Work Phone: [facility] 02-18-2025 11:40-0400 Body mass index (BMI) [Ratio] 26.8 kg/m2 Dr. Lex Bryant DO Work Phone: [facility] 02-18-2025 11:40-0400 Body temperature 97.4 [degF] Dr. Lex Bryant DO Work Phone: [facility] 02-18-2025 11:40-0400 Body weight 75.[address] Lex Bryant DO Work Phone: [facility] 02-18-2025 11:40-0400 Diastolic blood pressure 94 mm[Hg] Dr. Lex Bryant DO Work Phone: [facility] 02-18-2025 11:40-0400 Heart rate 92 /min Dr. Lex Bryant DO Work Phone: [facility] 02-18-2025 11:40-0400 Respiratory rate 16 /min Dr. Lex Bryant DO Work Phone: [facility] 02-18-2025 11:40-0400 SaO2% (BldA) [Mass fraction] 97 % Dr. Lex Bryant DO Work Phone: [facility] 02-18-2025 11:40-0400 Systolic blood pressure 151 mm[Hg] Dr. Lex Bryant DO Work Phone: [facility] 02-02-2025 10:40-0400 Body height 167.[address] Lex Bryant DO Work Phone: [facility] 02-02-2025 10:40-0400 Body mass index (BMI) [Ratio] 27 kg/m2 Dr. Lex Bryant DO Work Phone: [facility] 02-02-2025 10:40-0400 Body weight 75.[address] Lex Bryant DO Work Phone: [facility] 02-02-2025 10:40-0400 Diastolic blood pressure 96 mm[Hg] Dr. Lex Bryant DO Work Phone: [facility] 02-02-2025 10:40-0400 Heart rate 93 /min Dr. Lex Bryant DO Work Phone: [facility] 02-02-2025 10:40-0400 Respiratory rate 16 /min Dr. Lex Bryant DO Work Phone: [facility] 02-02-2025 10:40-0400 SaO2% (BldA) [Mass fraction] 96 % Dr. Lex Bryant DO Work Phone: [facility] 02-02-2025 10:40-0400 Systolic blood pressure 170 mm[Hg] Dr. Lex Bryant DO Work Phone: [facility] 01-28-2025 09:40-0400 Body height 167.[address] Lex Bryant DO Work Phone: [facility] 01-28-2025 09:40-0400 Body mass index (BMI) [Ratio] 26.8 kg/m2 Dr. Lex Bryant DO Work Phone: [facility] 01-28-2025 09:40-0400 Body temperature 98.1 [degF] Dr. Lex Bryant DO Work Phone: [facility] 01-28-2025 09:40-0400 Body weight 75.[address] Lex Bryant DO Work Phone: [facility] 01-28-2025 09:40-0400 Diastolic blood pressure 85 mm[Hg] Dr. Lex Bryant DO Work Phone: [facility] 01-28-2025 09:40-0400 Heart rate 75 /min Dr. Lex Bryant DO Work Phone: [facility] 01-28-2025 09:40-0400 Respiratory rate 16 /min Dr. Lex Bryant DO Work Phone: [facility] 01-28-2025 09:40-0400 SaO2% (BldA) [Mass fraction] 98 % Dr. Lex Bryant DO Work Phone: [facility] 01-28-2025 09:40-0400 Systolic blood pressure 136 mm[Hg] Dr. Lex Bryant DO Work Phone: [facility] 01-25-2025 15:09-0400 Body mass index (BMI) [Ratio] 26.8 kg/m2 Dr. Lex Bryant DO Work Phone: [facility] 01-25-2025 15:09-0400 Body weight 75.[address] Lex Bryant DO Work Phone: [facility] 01-25-2025 15:09-0400 Diastolic blood pressure 86 mm[Hg] Dr. Lex Bryant DO Work Phone: [facility] 01-25-2025 15:09-0400 Systolic blood pressure 167 mm[Hg] Dr. Lex Bryant DO Work Phone: [facility] 01-12-2025 15:21-0400 Body temperature 97.9 [degF] Dr. Lex Bryant DO Work Phone: [facility] 01-12-2025 15:21-0400 Diastolic blood pressure 75 mm[Hg] Dr. Lex Bryant DO Work Phone: [facility] 01-12-2025 15:21-0400 Heart rate 90 /min Dr. Lex Bryant DO Work Phone: [facility] 01-12-2025 15:21-0400 Respiratory rate 18 /min Dr. Lex Bryant DO Work Phone: [facility] 01-12-2025 15:21-0400 SaO2% (BldA) [Mass fraction] 97 % Dr. Lex Bryant DO Work Phone: [facility] 01-12-2025 15:21-0400 Systolic blood pressure 160 mm[Hg] Dr. Lex Bryant DO Work Phone: [facility] 01-12-2025 13:17-0400 Body height 167.[address] eLx Bryant DO Work Phone: [facility] 01-12-2025 13:17-0400 Body mass index (BMI) [Ratio] 25.9 kg/m2 Dr. Lex Bryant DO Work Phone: [facility] 01-12-2025 13:17-0400 Body weight [address] Lex Bryant DO Work Phone: [facility] 01-07-2025 08:21-0400 Body mass index (BMI) [Ratio] 26.4 kg/m2 Dr. Lex Bryant DO Work Phone: [facility] 01-07-2025 08:21-0400 Body temperature 97.5 [degF] Dr. Lex Bryant DO Work Phone: [facility] 01-07-2025 08:21-0400 Body weight 74.[address] Lex Bryant DO Work Phone: [facility] 01-07-2025 08:21-0400 Diastolic blood pressure 86 mm[Hg] Dr. Lex Bryant DO Work Phone: [facility] 01-07-2025 08:21-0400 Heart rate 82 /min Dr. Lex Bryant DO Work Phone: [facility] 01-07-2025 08:21-0400 Respiratory rate 16 /min Dr. Lex Bryant DO Work Phone: [facility] 01-07-2025 08:21-0400 SaO2% (BldA) [Mass fraction] 97 % Dr. Lex Bryant DO Work Phone: [facility] 01-07-2025 08:21-0400 Systolic blood pressure 156 mm[Hg] Dr. Lex Bryant DO Work Phone: [facility] 12-28-2024 10:33-0400 Body mass index (BMI) [Ratio] 27 kg/m2 Dr. Lex Bryant DO Work Phone: [facility] 12-28-2024 10:33-0400 Body weight 75.[address] Lex Bryant DO Work Phone: [facility] 12-28-2024 10:33-0400 Diastolic blood pressure 81 mm[Hg] Dr. Lex Bryant DO Work Phone: [facility] 12-28-2024 10:33-0400 Heart rate 95 /min Dr. Lex Bryant DO Work Phone: [facility] 12-28-2024 10:33-0400 Respiratory rate 18 /min Dr. Lex Bryant DO Work Phone: [facility] 12-28-2024 10:33-0400 SaO2% (BldA) [Mass fraction] 97 % Dr. Lex Bryant DO Work Phone: [facility] 12-28-2024 10:33-0400 Systolic blood pressure 148 mm[Hg] Dr. Lex Bryant DO Work Phone: [facility] 12-17-2024 10:43-0500 Body mass index (BMI) [Ratio] 26.8 kg/m2 Dr. Lex Bryant DO Work Phone: [facility] 12-17-2024 10:43-0500 Body temperature 96.9 [degF] Dr. Lex Bryant DO Work Phone: [facility] 12-17-2024 10:43-0500 Body weight 75.[address] Lex Bryant DO Work Phone: [facility] 12-17-2024 10:43-0500 Diastolic blood pressure 81 mm[Hg] Dr. Lex Bryant DO Work Phone: [facility] 12-17-2024 10:43-0500 Heart rate 80 /min Dr. Lex Bryant DO Work Phone: [facility] 12-17-2024 10:43-0500 Respiratory rate 16 /min Dr. Lex Bryant DO Work Phone: [facility] 12-17-2024 10:43-0500 SaO2% (BldA) [Mass fraction] 96 % Dr. Lex Bryant DO Work Phone: [facility] 12-17-2024 10:43-0500 Systolic blood pressure 142 mm[Hg] Dr. Lex Bryant DO Work Phone: [facility] 11-27-2024 09:40-0500 Body temperature 97.7 [degF] Dr. Lex Bryant DO Work Phone: [facility] 11-27-2024 09:40-0500 Body weight 74.[address] Lex Bryant DO Work Phone: [facility] 11-27-2024 09:40-0500 Diastolic blood pressure 84 mm[Hg] Dr. Lex Bryant DO Work Phone: [facility] 11-27-2024 09:40-0500 Heart rate 81 /min Dr. Lex Bryant DO Work Phone: [facility] 11-27-2024 09:40-0500 Respiratory rate 20 /min Dr. Lex Bryant DO Work Phone: [facility] 11-27-2024 09:40-0500 SaO2% (BldA) [Mass fraction] 99 % Dr. Lex Bryant DO Work Phone: [facility] 11-27-2024 09:40-0500 Systolic blood pressure 148 mm[Hg] Dr. Lex Bryant DO Work Phone: [facility] 11-26-2024 10:18-0500 Body mass index (BMI) [Ratio] 26.6 kg/m2 Dr. Lex Bryant DO Work Phone: [facility] 11-26-2024 10:18-0500 Body temperature 97.5 [degF] Dr. Lex Bryant DO Work Phone: [facility] 11-26-2024 10:18-0500 Body weight 74.[address] Lex Bryant DO Work Phone: [facility] 11-26-2024 10:18-0500 Diastolic blood pressure 75 mm[Hg] Dr. Lex Bryant DO Work Phone: [facility] 11-26-2024 10:18-0500 Heart rate 82 /min Dr. Lex Bryant DO Work Phone: [facility] 11-26-2024 10:18-0500 Respiratory rate 18 /min Dr. Lex Bryant DO Work Phone: [facility] 11-26-2024 10:18-0500 SaO2% (BldA) [Mass fraction] 95 % Dr. Lex Bryant DO Work Phone: [facility] 11-26-2024 10:18-0500 Systolic blood pressure 145 mm[Hg] Dr. Lex Bryant DO Work Phone: [facility] 11-05-2024 13:22-0500 Diastolic blood pressure 71 mm[Hg] Dr. Lex Bryant DO Work Phone: [facility] 11-05-2024 13:22-0500 Heart rate 87 /min Dr. Lex Bryant DO Work Phone: [facility] 11-05-2024 13:22-0500 Respiratory rate 16 /min Dr. Lex Bryant DO Work Phone: [facility] 11-05-2024 13:22-0500 Systolic blood pressure 137 mm[Hg] Dr. Lex Bryant DO Work Phone: [facility] 11-05-2024 10:40-0500 Body mass index (BMI) [Ratio] 26.3 kg/m2 Dr. Lex Bryant DO Work Phone: [facility] 11-05-2024 10:40-0500 Body temperature 98.3 [degF] Dr. Lex Bryant DO Work Phone: [facility] 11-05-2024 10:40-0500 Body weight 73.[address] Lex Bryant DO Work Phone: [facility] 11-05-2024 10:40-0500 Diastolic blood pressure 85 mm[Hg] Dr. Lex Bryant DO Work Phone: [facility] 11-05-2024 10:40-0500 Heart rate 101 /min Dr. Lex Bryant DO Work Phone: [facility] 11-05-2024 10:40-0500 Respiratory rate 16 /min Dr. Lex Bryant DO Work Phone: [facility] 11-05-2024 10:40-0500 SaO2% (BldA) [Mass fraction] 96 % Dr. Lex Bryant DO Work Phone: [facility] 11-05-2024 10:40-0500 Systolic blood pressure 132 mm[Hg] Dr. Lex Bryant DO Work Phone: [facility] 10-15-2024 10:43-0500 Body mass index (BMI) [Ratio] 27.6 kg/m2 Dr. Lex Bryant DO Work Phone: [facility] 10-15-2024 10:43-0500 Body temperature 97.9 [degF] Dr. Lex Bryant DO Work Phone: [facility] 10-15-2024 10:43-0500 Body weight 77.[address] Lex Bryant DO Work Phone: [facility] 10-15-2024 10:43-0500 Diastolic blood pressure 83 mm[Hg] Dr. Lex Bryant DO Work Phone: [facility] 10-15-2024 10:43-0500 Heart rate 81 /min Dr. Lex Bryant DO Work Phone: [facility] 10-15-2024 10:43-0500 Respiratory rate 16 /min Dr. Lex Bryant DO Work Phone: [facility] 10-15-2024 10:43-0500 SaO2% (BldA) [Mass fraction] 97 % Dr. Lex Bryant DO Work Phone: [facility] 10-15-2024 10:43-0500 Systolic blood pressure 142 mm[Hg] Dr. Lex Bryant DO Work Phone: [facility] 10-12-2024 13:20-0500 Body mass index (BMI) [Ratio] 27.8 kg/m2 Dr. Lex Bryant DO Work Phone: [facility] 10-12-2024 13:20-0500 Body temperature 97.2 [degF] Dr. Lex Bryant DO Work Phone: [facility] 10-12-2024 13:20-0500 Body weight 78.[address] Lex Bryant DO Work Phone: [facility] 10-12-2024 13:20-0500 Diastolic blood pressure 91 mm[Hg] Dr. Lex Bryant DO Work Phone: [facility] 10-12-2024 13:20-0500 Heart rate 84 /min Dr. Lex Bryant DO Work Phone: [facility] 10-12-2024 13:20-0500 Respiratory rate 18 /min Dr. Lex Bryant DO Work Phone: [facility] 10-12-2024 13:20-0500 SaO2% (BldA) [Mass fraction] 96 % Dr. Lex Bryant DO Work Phone: [facility] 10-12-2024 13:20-0500 Systolic blood pressure 153 mm[Hg] Dr. Lex Bryant DO Work Phone: [facility] 10-07-2024 13:16-0500 Body mass index (BMI) [Ratio] 27.4 kg/m2 Dr. Lex Bryant DO Work Phone: [facility] 10-07-2024 13:16-0500 Body temperature 97.6 [degF] Dr. Lex Bryant DO Work Phone: [facility] 10-07-2024 13:16-0500 Body weight 77.[address] Lex Bryant DO Work Phone: [facility] 10-07-2024 13:16-0500 Diastolic blood pressure 86 mm[Hg] Dr. Lex Bryant DO Work Phone: [facility] 10-07-2024 13:16-0500 Heart rate 92 /min Dr. Lex Bryant DO Work Phone: [facility] 10-07-2024 13:16-0500 Respiratory rate 18 /min Dr. Lex Bryant DO Work Phone: [facility] 10-07-2024 13:16-0500 SaO2% (BldA) [Mass fraction] 98 % Dr. Lex Bryant DO Work Phone: [facility] 10-07-2024 13:16-0500 Systolic blood pressure 142 mm[Hg] Dr. Lex Bryant DO Work Phone: [facility] 09-30-2024 13:42-0500 Body mass index (BMI) [Ratio] 28 kg/m2 Dr. Lex Bryant DO Work Phone: [facility] 09-30-2024 13:42-0500 Body temperature 97.6 [degF] Dr. Lex Bryant DO Work Phone: [facility] 09-30-2024 13:42-0500 Body weight 78.[address] Lex Bryant DO Work Phone: [facility] 09-30-2024 13:42-0500 Diastolic blood pressure 91 mm[Hg] Dr. Lex Bryant DO Work Phone: [facility] 09-30-2024 13:42-0500 Heart rate 93 /min Dr. Lex Bryant DO Work Phone: [facility] 09-30-2024 13:42-0500 Respiratory rate 16 /min Dr. Lex Bryant DO Work Phone: [facility] 09-30-2024 13:42-0500 SaO2% (BldA) [Mass fraction] 98 % Dr. Lex Bryant DO Work Phone: [facility] 09-30-2024 13:42-0500 Systolic blood pressure 163 mm[Hg] Dr. Lex Bryant DO Work Phone: [facility] 09-24-2024 14:30-0500 SaO2% (BldA) [Mass fraction] 95 % Dr. Lex Bryant DO Work Phone: [facility] 09-24-2024 08:45-0500 Body mass index (BMI) [Ratio] 28.6 kg/m2 Dr. Lex Bryant DO Work Phone: [facility] 09-24-2024 08:45-0500 Body temperature 97.5 [degF] Dr. Lex Bryant DO Work Phone: [facility] 09-24-2024 08:45-0500 Body weight 80.[address] Lex Bryant DO Work Phone: [facility] 09-24-2024 08:45-0500 Diastolic blood pressure 81 mm[Hg] Dr. Lex Bryant DO Work Phone: [facility] 09-24-2024 08:45-0500 Heart rate 86 /min Dr. Lex Bryant DO Work Phone: [facility] 09-24-2024 08:45-0500 Respiratory rate 16 /min Dr. Lex Bryant DO Work Phone: [facility] 09-24-2024 08:45-0500 SaO2% (BldA) [Mass fraction] 98 % Dr. Lex Bryant DO Work Phone: [facility] 09-24-2024 08:45-0500 Systolic blood pressure 155 mm[Hg] Dr. Lex Bryant DO Work Phone: [facility] 09-23-2024 13:30-0500 Body mass index (BMI) [Ratio] 28.8 kg/m2 Dr. Lex Bryant DO Work Phone: [facility] 09-23-2024 13:30-0500 Body temperature 97.3 [degF] Dr. Lex Bryant DO Work Phone: [facility] 09-23-2024 13:30-0500 Body weight 80.[address] Lex Bryant DO Work Phone: [facility] 09-23-2024 13:30-0500 Diastolic blood pressure 97 mm[Hg] Dr. Lex Bryant DO Work Phone: [facility] 09-23-2024 13:30-0500 Heart rate 88 /min Dr. Lex Bryant DO Work Phone: [facility] 09-23-2024 13:30-0500 Respiratory rate 16 /min Dr. Lex Bryant DO Work Phone: [facility] 09-23-2024 13:30-0500 SaO2% (BldA) [Mass fraction] 96 % Dr. Lex Bryant DO Work Phone: [facility] 09-23-2024 13:30-0500 Systolic blood pressure 161 mm[Hg] Dr. Lex Bryant DO Work Phone: [facility] 07-23-2024 12:46-0400 Body temperature 97.1 [degF] Dr. Lex Bryant DO Work Phone: [facility] 07-22-2024 12:26-0400 Body height 167.6 cm Champ Giles MD Work Phone: [facility] 07-22-2024 12:26-0400 Body mass index (BMI) [Ratio] 30.67 kg/m2 Champ Giles MD Work Phone: [facility] 07-22-2024 12:26-0400 Body weight 86.18 kg Champ Giles MD Work Phone: [facility] 07-22-2024 12:26-0400 Diastolic blood pressure 87 mm[Hg] Champ Giles MD Work Phone: [facility] 07-22-2024 12:26-0400 Heart rate 90 /min Champ Giles MD Work Phone: [facility] 07-22-2024 12:26-0400 Systolic blood pressure 155 mm[Hg] Champ Giles MD Work Phone: [facility] [employer] 02-11-2024 12:31-0400 Body height 167.[address] Lex Bryant Work Phone: [facility] 02-11-2024 12:31-0400 Body mass index (BMI) [Ratio] 32.5 kg/m2 Dr. Lex Bryant Work Phone: [facility] 02-11-2024 12:31-0400 Body weight 91.[address] Lex Bryant Work Phone: [facility] 02-11-2024 12:31-0400 Diastolic blood pressure 89 mm[Hg] Dr. Lex Bryant Work Phone: [facility] 02-11-2024 12:31-0400 Heart rate 90 /min Dr. Lex Bryant Work Phone: [facility] 02-11-2024 12:31-0400 Respiratory rate 17 /min Dr. Lex Bryant Work Phone: [facility] 02-11-2024 12:31-0400 SaO2% (BldA) [Mass fraction] 97 % Dr. Lex Bryant Work Phone: [facility] 02-11-2024 12:31-0400 Systolic blood pressure 158 mm[Hg] Dr. Lex Bryant Work Phone: [facility] 01-21-2024 13:51-0400 Body height 167.[address] Samantha Arango Work Phone: [facility] 01-21-2024 13:51-0400 Body mass index (BMI) [Ratio] 32.8 kg/m2 Dr. Samantha Arango Work Phone: [facility] 01-21-2024 13:51-0400 Body temperature 97.8 [degF] Dr. Samantha Arango Work Phone: [facility] 01-21-2024 13:51-0400 Body weight 92.[address] Samantha Arango Work Phone: [facility] 01-21-2024 13:51-0400 Diastolic blood pressure 84 mm[Hg] Dr. Samantha Arango Work Phone: [facility] 01-21-2024 13:51-0400 Heart rate 85 /min Dr. Samantha Arango Work Phone: [facility] 01-21-2024 13:51-0400 Respiratory rate 16 /min Dr. Samantha Arango Work Phone: [facility] 01-21-2024 13:51-0400 SaO2% (BldA) [Mass fraction] 95 % Dr. Samantha Arango Work Phone: [facility] 01-21-2024 13:51-0400 Systolic blood pressure 124 mm[Hg] Dr. Samantha Arango Work Phone: [facility] 11-27-2023 09:25-0500 Body height 167.6 cm Daisy Hopson MACHINIST OUTSIDE - SUPPLEMENTAL MANAGER Work Phone: [facility] [employer] 11-27-2023 09:25-0500 Body mass index (BMI) [Ratio] 33.01 kg/m2 Daisy Samson MACHINIST OUTSIDE - SUPPLEMENTAL MANAGER Work Phone: [facility] [employer] 11-27-2023 09:25-0500 Body weight 92.76 kg Daisy Hopson MACHINIST OUTSIDE - SUPPLEMENTAL MANAGER Work Phone: [facility] [employer] 11-27-2023 09:25-0500 Diastolic blood pressure 77 mm[Hg] Daisy Hopson MACHINIST OUTSIDE - SUPPLEMENTAL MANAGER Work Phone: [facility] [employer] 11-27-2023 09:25-0500 Heart rate 81 /min Daisy Hopson MACHINIST OUTSIDE - SUPPLEMENTAL MANAGER Work Phone: [facility] [employer] 11-27-2023 09:25-0500 Systolic blood pressure 170 mm[Hg] Daisy Hopson MACHINIST OUTSIDE - SUPPLEMENTAL MANAGER Work Phone: [facility] [employer] 10-28-2023 14:04-0500 Body mass index (BMI) [Ratio] 33.4 kg/m2 Dr. Samantha Arango Work Phone: [facility] 10-28-2023 14:04-0500 Body weight 93.[address] Samantha Arango Work Phone: [facility] 10-28-2023 14:04-0500 Diastolic blood pressure 85 mm[Hg] Dr. Samantha Arango Work Phone: [facility] 10-28-2023 14:04-0500 Systolic blood pressure 160 mm[Hg] Dr. Samantha Arango Work Phone: [facility] 06-26-2023 10:55-0400 Body height 167.[address] Lex Bryant Work Phone: [facility] 06-26-2023 10:55-0400 Body mass index (BMI) [Ratio] 32.2 kg/m2 Dr. Lex Bryant Work Phone: [facility] 06-26-2023 10:55-0400 Body temperature 97.9 [degF] Dr. Lex Bryant Work Phone: [facility] 06-26-2023 10:55-0400 Body weight 90.[address] Lex Bryant Work Phone: [facility] 06-26-2023 10:55-0400 Diastolic blood pressure 82 mm[Hg] Dr. Lex Bryant Work Phone: [facility] 06-26-2023 10:55-0400 Heart rate 78 /min Dr. Lex Bryant Work Phone: [facility] 06-26-2023 10:55-0400 Respiratory rate 18 /min Dr. Lex Bryant Work Phone: [facility] 06-26-2023 10:55-0400 SaO2% (BldA) [Mass fraction] 95 % Dr. Lex Bryant Work Phone: [facility] 06-26-2023 10:55-0400 Systolic blood pressure 143 mm[Hg] Dr. Lex Bryant Work Phone: [facility] 06-04-2023 12:53-0400 Body mass index (BMI) [Ratio] 32.6 kg/m2 Dr. Lex Bryant Work Phone: [facility] 06-04-2023 12:53-0400 Body temperature 97 [degF] Dr. Lex Bryant Work Phone: [facility] 06-04-2023 12:53-0400 Body weight 91.[address] Lex Bryant Work Phone: [facility] 06-04-2023 12:53-0400 Diastolic blood pressure 80 mm[Hg] Dr. Lex Bryant Work Phone: [facility] 06-04-2023 12:53-0400 Heart rate 92 /min Dr. Lex Bryant Work Phone: [facility] 06-04-2023 12:53-0400 Respiratory rate 16 /min Dr. Lex Bryant Work Phone: [facility] 06-04-2023 12:53-0400 SaO2% (BldA) [Mass fraction] 97 % Dr. Lex Bryant Work Phone: [facility] 06-04-2023 12:53-0400 Systolic blood pressure 165 mm[Hg] Dr. Lex Bryant Work Phone: [facility] 05-27-2023 10:30-0400 Body height 167.6 cm Champ Giles MD Work Phone: [facility] 05-27-2023 10:30-0400 Body mass index (BMI) [Ratio] 32.77 kg/m2 Champ Giles MD Work Phone: [facility] [employer] 05-27-2023 10:30-0400 Body weight 92.08 kg Champ Giles MD Work Phone: [facility] 05-27-2023 10:30-0400 Diastolic blood pressure 81 mm[Hg] Champ Giles MD Work Phone: [facility] [employer] 05-27-2023 10:30-0400 Heart rate 89 /min Champ Giles MD Work Phone: [facility] 05-27-2023 10:30-0400 Systolic blood pressure 178 mm[Hg] Champ Giles MD Work Phone: [facility] 04-25-2023 15:30-0400 Body height 167.[address] Lex Bryant Work Phone: [facility] 04-25-2023 15:30-0400 Body mass index (BMI) [Ratio] 32.4 kg/m2 Dr. Lex Bryant Work Phone: [facility] 04-25-2023 15:30-0400 Body temperature 98.8 [degF] Dr. Lex Bryant Work Phone: [facility] 04-25-2023 15:30-0400 Body weight 91.[address] Lex Bryant Work Phone: [facility] 04-25-2023 15:30-0400 Diastolic blood pressure 84 mm[Hg] Dr. Lex Bryant Work Phone: [facility] 04-25-2023 15:30-0400 Heart rate 88 /min Dr. Lex Bryant Work Phone: [facility] 04-25-2023 15:30-0400 Respiratory rate 16 /min Dr. Lex Bryant Work Phone: [facility] 04-25-2023 15:30-0400 SaO2% (BldA) [Mass fraction] 98 % Dr. Lex Bryant Work Phone: [facility] 04-25-2023 15:30-0400 Systolic blood pressure 144 mm[Hg] Dr. Lex Bryant Work Phone: [facility] 04-24-2023 09:39-0400 Body height 167.6 cm Champ Giles MD Work Phone: [facility] 04-24-2023 09:39-0400 Body mass index (BMI) [Ratio] 33.25 kg/m2 Champ Giles MD Work Phone: [facility] 04-24-2023 09:39-0400 Body weight 93.44 kg Champ Giles MD Work Phone: [facility] 04-24-2023 09:39-0400 Diastolic blood pressure 84 mm[Hg] Champ Giles MD Work Phone: [facility] 04-24-2023 09:39-0400 Heart rate 98 /min Champ Giles MD Work Phone: [facility] 04-24-2023 09:39-0400 Systolic blood pressure 157 mm[Hg] Champ Giles MD Work Phone: [facility] 04-17-2023 11:50-0400 Body height 167.[address] Lex Bryant Work Phone: [facility] 04-17-2023 11:50-0400 Body mass index (BMI) [Ratio] 32.3 kg/m2 Dr. Lex Bryant Work Phone: [facility] 04-17-2023 11:50-0400 Body weight 90.[address] Lex Bryant Work Phone: [facility] 04-17-2023 11:50-0400 Diastolic blood pressure 81 mm[Hg] Dr. Lex Bryant Work Phone: [facility] 04-17-2023 11:50-0400 Systolic blood pressure 159 mm[Hg] Dr. Lex Bryant Work Phone: [facility] 04-03-2023 13:39-0400 Body temperature 98 [degF] Dr. Lex Bryant Work Phone: [facility] 04-03-2023 13:39-0400 Diastolic blood pressure 84 mm[Hg] Dr. Lex Bryant Work Phone: [facility] 04-03-2023 13:39-0400 Heart rate 76 /min Dr. Lex Bryant Work Phone: [facility] 04-03-2023 13:39-0400 Respiratory rate 16 /min Dr. Lex Bryant Work Phone: [facility] 04-03-2023 13:39-0400 SaO2% (BldA) [Mass fraction] 99 % Dr. Lex Bryant Work Phone: [facility] 04-03-2023 13:39-0400 Systolic blood pressure 136 mm[Hg] Dr. Lex Bryant Work Phone: [facility] 04-02-2023 20:33-0400 Body mass index (BMI) [Ratio] 15.5 kg/m2 Dr. Lex Bryant Work Phone: [facility] 04-02-2023 20:33-0400 Body weight 43.[address] Lex Bryant Work Phone: [facility] 04-02-2023 15:00-0400 Inhaled oxygen flow rate 4 L/min Dr. Lex Bryant Work Phone: [facility] 03-13-2023 08:38-0400 Body mass index (BMI) [Ratio] 33 kg/m2 Dr. Lex Bryant Work Phone: [facility] 03-13-2023 08:38-0400 Body weight 92.[address] Lex Bryant Work Phone: [facility] 03-13-2023 08:38-0400 Diastolic blood pressure 85 mm[Hg] Dr. Lex Bryant Work Phone: [facility] 03-13-2023 08:38-0400 Systolic blood pressure 173 mm[Hg] Dr. Lex Bryant Work Phone: [facility] 02-11-2023 17:23-0400 Diastolic blood pressure 84 mm[Hg] Dr. Lex Bryant Work Phone: [facility] 02-11-2023 17:23-0400 Heart rate 87 /min Dr. Lex Bryant Work Phone: [facility] 02-11-2023 17:23-0400 Respiratory rate 16 /min Dr. Lex Bryant Work Phone: [facility] 02-11-2023 17:23-0400 SaO2% (BldA) [Mass fraction] 99 % Dr. Lex Bryant Work Phone: [facility] 02-11-2023 17:23-0400 Systolic blood pressure 167 mm[Hg] Dr. Lex Bryant Work Phone: [facility] 02-11-2023 13:47-0400 Body height 167.[address] Lex Bryant Work Phone: [facility] 02-11-2023 13:47-0400 Body mass index (BMI) [Ratio] 33.3 kg/m2 Dr. Lex Bryant Work Phone: [facility] 02-11-2023 13:47-0400 Body temperature 96.9 [degF] Dr. Lex Byrant Work Phone: [facility] 02-11-2023 13:47-0400 Body weight 93.[address] Lex Bryant Work Phone: [facility] 01-29-2023 14:17-0400 Body height 167.[address] Lex Bryant Work Phone: [facility] 01-29-2023 14:17-0400 Body mass index (BMI) [Ratio] 34.9 kg/m2 Dr. Lex Bryant Work Phone: [facility] 01-29-2023 14:17-0400 Body weight 98.[address] Lex Bryant Work Phone: [facility] 01-29-2023 14:17-0400 Diastolic blood pressure 94 mm[Hg] Dr. Lex Bryant Work Phone: [facility] 01-29-2023 14:17-0400 Systolic blood pressure 181 mm[Hg] Dr. Lex Bryant Work Phone: [facility] 12-11-2022 14:23-0500 Body mass index (BMI) [Ratio] 34 kg/m2 Dr. Lex Bryant Work Phone: [facility] 12-11-2022 14:23-0500 Body temperature 97.1 [degF] Dr. Lex Bryant Work Phone: [facility] 12-11-2022 14:23-0500 Body weight 95.[address] Lex Bryant Work Phone: [facility] 12-11-2022 14:23-0500 Diastolic blood pressure 110 mm[Hg] Dr. Lex Bryant Work Phone: [facility] 12-11-2022 14:23-0500 Heart rate 86 /min Dr. Lex Bryant Work Phone: [facility] 12-11-2022 14:23-0500 Respiratory rate 16 /min Dr. Lex Bryant Work Phone: [facility] 12-11-2022 14:23-0500 SaO2% (BldA) [Mass fraction] 99 % Dr. Lex Bryant Work Phone: [facility] 12-11-2022 14:23-0500 Systolic blood pressure 190 mm[Hg] Dr. Lex Bryant Work Phone: [facility] 03-20-2022 15:54-0400 Body height 167.[address] Lex Bryant Work Phone: [facility] Work Phone: 03-20-2022 15:54-0400 Body mass index (BMI) [Ratio] 34.4 kg/m2 Dr. Lex Bryant Work Phone: [facility] Work Phone: 03-20-2022 15:54-0400 Body temperature 97.6 [degF] Dr. Lex Bryant Work Phone: [facility] Work Phone: 03-20-2022 15:54-0400 Body weight 96.[address] Lex Bryant Work Phone: [facility] Work Phone: 03-20-2022 15:54-0400 Diastolic blood pressure 82 mm[Hg] Dr. Lex Braynt Work Phone: [facility] Work Phone: 03-20-2022 15:54-0400 Heart rate 90 /min Dr. Lex Bryant Work Phone: [facility] Work Phone: 03-20-2022 15:54-0400 Respiratory rate 18 /min Dr. Lex Bryant Work Phone: [facility] Work Phone: 03-20-2022 15:54-0400 SaO2% (BldA) [Mass fraction] 97 % Dr. Lex Bryant Work Phone: [facility] Work Phone: 03-20-2022 15:54-0400 Systolic blood pressure 124 mm[Hg] Dr. Lex Bryant Work Phone: [facility] Work Phone: 03-06-2022 11:35-0400 Body mass index (BMI) [Ratio] 34.2 kg/m2 Dr. Lex Bryant Work Phone: [facility] Work Phone: 03-06-2022 11:35-0400 Body temperature 97.6 [degF] Dr. Lex Bryant Work Phone: [facility] Work Phone: 03-06-2022 11:35-0400 Body weight 96.[address] Lex Bryant Work Phone: [facility] Work Phone: 03-06-2022 11:35-0400 Diastolic blood pressure 88 mm[Hg] Dr. Lex Bryant Work Phone: [facility] Work Phone: 03-06-2022 11:35-0400 Heart rate 89 /min Dr. eLx Bryant Work Phone: [facility] Work Phone: 03-06-2022 11:35-0400 Respiratory rate 16 /min Dr. Lex Bryant Work Phone: [facility] Work Phone: 03-06-2022 11:35-0400 SaO2% (BldA) [Mass fraction] 99 % Dr. Lex Bryant Work Phone: [facility] Work Phone: 03-06-2022 11:35-0400 Systolic blood pressure 140 mm[Hg] Dr. Lex Bryant Work Phone: [facility] Work Phone: Encounters Encounter Date Encounter Type Care Provider Facility Start: 08-24-2025 ambulatory Em Balderrama ty:[facility] Start: 08-12-2025 End: 08-12-2025 Patient encounter procedure Trina Mcconnell DIALYSIS CHIEF EQUIPMENT TECHNICIAN-C -[facility] Start: 08-12-2025 End: 08-12-2025 Patient encounter procedure Trina Mcconnell DIALYSIS CHIEF EQUIPMENT TECHNICIAN-C -[facility] Work Phone: Start: 08-12-2025 End: 08-12-2025 ambulatory Trina Mcconnell Facility:[facility] Start: 08-12-2025 End: 08-12-2025 ambulatory Trina Ungpavel Facility:[facility] Start: 08-10-2025 End: 08-10-2025 Patient encounter procedure Alley Walden DIALYSIS CHIEF EQUIPMENT TECHNICIAN-C -[facility] Work Phone: Start: 08-10-2025 End: 08-10-[address] Lex Bryant DO Work Phone: -[facility] Start: 08-05-[address] New Ibrahim DO -[facility] Start: 08-05-2025 End: 08-05-[address] Em Torres MD -[facility] Work Phone: Start: 08-05-2025 End: 08-05-[address] Lex Bryant DO Work Phone: -[facility] Start: 08-04-2025 End: 08-04-[address] Em Torres MD -Nuclear Medicine [facility] Work Phone: Start: 08-04-2025 End: 08-04-2025 ambulatory [facility] Facility:[facility] Start: 07-30-2025 End: 07-30-[address] Em Torres MD -Cat Scan [facility] Work Phone: Start: 07-30-2025 End: 07-30-[address] Capo Xiong MD -[facility] Work Phone: Start: 07-30-2025 End: 07-30-[address] Lex Bryant DO Work Phone: [facility] Start: 07-30-2025 End: 07-30-2025 ambulatory [facility] Facility:[facility] Start: 07-26-2025 End: 07-26-[address] Samantha Arango DO -[facility] Work Phone: Start: 07-26-2025 End: 07-26-[address] Lex Bryant DO Work Phone: [facility] Start: 07-26-2025 End: 07-26-[address] New Ibrahim DO -Outpatient Breast Imaging Work Phone: Start: 07-26-2025 End: 07-26-2025 ambulatory New Ibrahim Facility:[facility] Start: 06-24-[address] New Ibrahim DO -[facility] Start: 06-24-2025 End: 06-24-[address] New Ibrahim DO -[facility] Work Phone: Start: 06-24-2025 End: 06-24-[address] Lex Bryant DO Work Phone: [facility] Start: 06-17-2025 End: 06-17-2025 Patient encounter procedure Samantha PORTILLOC -[facility] Work Phone: Start: 06-17-2025 End: 06-17-[address] Lex Bryant DO Work Phone: -[facility] Start: 06-03-[address] New Ibrahim DO [facility] Start: 06-03-2025 End: 06-03-[address] Em Torres MD -[facility] Work Phone: Start: 06-03-2025 End: 06-03-[address] Lex Bryant DO Work Phone: -[facility] Start: 05-13-[address] [facility] Start: 05-13-2025 End: 05-13-2025 Patient encounter procedure Alley CRUM -[facility] Work Phone: Start: 05-13-2025 End: 05-13-[address] Lex Bryant DO Work Phone: -[facility] Start: 05-10-2025 End: 05-10-[address] Lex Bryant DO Work Phone: -Cardiovascular Services Start: 05-10-2025 End: 05-10-2025 Patient encounter procedure Alley CRUM -Cardiovascular Services Work Phone: Start: 05-09-2025 End: 05-10-2025 ambulatory Lex Bryant Facility:[facility] Start: 05-09-2025 Non-patient / Non-visit Dr. Capo Xiong MD -[facility] Start: 04-22-[address] New Ibrahim DO [facility] Start: 04-22-2025 End: 04-22-[address] Em Torres MD -[facility] Work Phone: Start: 04-22-2025 End: 04-22-[address] Lex Bryant DO Work Phone: [facility] Start: 04-20-2025 Non-patient / Non-visit Dr. Ame Landa MD -[facility] Work Phone: Start: 04-01-[address] New Ibrahim DO [facility] Start: 04-01-2025 End: 04-01-2025 Patient encounter procedure Alley Walden DIALYSIS CHIEF EQUIPMENT TECHNICIAN-C -[facility] Work Phone: Start: 04-01-2025 End: 04-01-[address] Lex Bryant DO Work Phone: [facility] Work Phone: Start: 03-17-2025 End: 03-17-2025 Patient encounter procedure Samantha Shen NP-C -[facility] Work Phone: Start: 03-17-2025 End: 03-17-[address] Lex Bryant DO Work Phone: [facility] Work Phone: Start: 03-12-2025 End: 03-12-[address] Lurdes Cormier MD -[facility] Work Phone: Start: 03-12-2025 End: 03-12-2025 ambulatory Lex Bryant Facility:[facility] Start: 03-11-[address] New Ibrahim DO [facility] Start: 03-11-2025 End: 03-11-2025 Patient encounter procedure Alley Walden DIALYSIS CHIEF EQUIPMENT TECHNICIAN-C -[facility] Work Phone: Start: 03-11-2025 End: 03-11-2025 ambulatory Lex Bryant Facility:[facility] Start: 03-02-2025 End: 03-02-[address] Lex Bryant DO Work Phone: [facility] Work Phone: Start: 03-02-2025 End: 03-02-2025 Discharged Recurring Alley Walden DIALYSIS CHIEF EQUIPMENT TECHNICIAN-C -Physical Therapy Work Phone: Start: 02-18-[address] New Ibrahim DO -[facility] Start: 02-18-2025 End: 02-18-[address] Em Torres MD -[facility] Work Phone: Start: 02-18-2025 End: 02-18-2025 ambulatory Lex Bryant Facility:[facility] Start: 02-12-2025 ambulatory Lex Bryant Facilit y:[facility] Start: 02-12-2025 Non-patient / Non-visit Dr. Capo Xiong MD -[facility] Start: 02-12-2025 End: 02-12-2025 Patient encounter procedure Alleytre Walden DIALYSIS CHIEF EQUIPMENT TECHNICIAN-C -Cardiovascular Services Work Phone: Start: 02-12-2025 End: 02-12-2025 ambulatory Lex Bryant Facility:[facility] Start: 02-05-2025 Registered Recurring Alley Walden DIALYSIS CHIEF EQUIPMENT TECHNICIAN-C -Physical Therapy Work Phone: Start: 02-02-2025 End: 02-02-2025 Patient encounter procedure Samantha CRUM -[facility] Work Phone: Start: 02-02-2025 End: 02-02-[address] Lex Bryant DO Work Phone: [facility] Work Phone: Start: 02-02-2025 End: 02-02-2025 ambulatory Samantha Shen Facility:[facility] Start: 01-28-2025 End: 01-28-2025 Patient encounter procedure Alley Walden NP-C -[facility] Work Phone: Start: 01-28-2025 End: 01-28-2025 ambulatory Lex Bryant Facility:[facility] Start: 01-28-[address] New Ibrahim DO [facility] Start: 01-25-2025 End: 01-25-[address] Samantha Arango DO [place] [place] Work Phone: Start: 01-25-2025 End: 01-25-2025 ambulatory Lex Bryant Facility:[facility] Start: 01-12-2025 ambulatory Patrick Peres Facility :[facility] Start: 01-12-2025 Non-patient / Non-visit Patrick Peres DO -[facility] Start: 01-12-2025 End: 01-12-2025 Admission to same day surgery center Patrickmadhav Peres DO -Endoscopy Work Phone: Start: 01-12-2025 End: 01-12-[address] Lex Bryant DO Work Phone: [facility] Work Phone: Start: 01-07-[address] Start: 01-07-2025 End: 01-07-2025 [facility] Start: 01-07-2025 End: 01-07-2025 ambulatory Lex Bryant Facility:[facility] Start: 12-28-2024 End: 12-28-2024 [facility] Start: 12-28-2024 End: 12-28-2024 ambulatory Samantha Shen Facility:[facility] Start: 12-17-2024 End: 12-17-[address] Em Torres MD -[facility] Work Phone: Start: 12-17-2024 End: 12-17-2024 ambulatory Lex Bryant Facility:[facility] Start: 11-27-2024 End: 11-27-2024 ambulatory Lex Bryant Facility:[facility] Start: 11-27-2024 End: 11-27-[address] Capo Xiong MD -[facility] Work Phone: Start: 11-26-2024 End: 11-26-[address] Em Torres MD -[facility] Work Phone: Start: 11-26-2024 End: 11-26-2024 ambulatory Lex Bryant Facility:[facility] Start: 11-17-2024 End: 11-17-[address] New Ibrahim DO -Occupational Therapy Work Phone: Start: 11-17-[address] New GOMEZOccupational Therapy Work Phone: Start: 11-17-2024 End: 11-17-[address] Lex Bryant DO Work Phone: [facility] Work Phone: Start: 11-16-2024 ambulatory Lex Bryant Facilit y:[facility] Start: 11-16-2024 Non-patient / Non-visit Dr. Capo Xiong MD -[facility] Start: 11-16-2024 End: 11-16-2024 Patient encounter procedure Alley Walden DIALYSIS CHIEF EQUIPMENT TECHNICIAN-C -Cardiovascular Services Work Phone: Start: 11-16-2024 End: 11-16-2024 ambulatory Lex Bryant Facility:[facility] Start: 11-05-2024 End: 11-05-2024 Patient encounter procedure Alleytre Walden DIALYSIS CHIEF EQUIPMENT TECHNICIAN-C -[facility] Work Phone: Start: 11-05-2024 End: 11-05-2024 ambulatory Lex Bryant Facility:[facility] Start: 10-15-2024 End: 10-15-2024 Patient encounter procedure Alley Walden DIALYSIS CHIEF EQUIPMENT TECHNICIAN-C -[facility] Work Phone: Start: 10-15-2024 End: 10-15-2024 ambulatory Lex Bryant Facility:[facility] Start: 10-12-2024 End: 10-12-[address] Work Phone: Start: 10-12-2024 End: 10-12-2024 ambulatory New Ibrahim Facility:[facility] Start: 10-11-2024 Non-patient / Non-visit Dr. New Ibrahim DO [facility] Work Phone: Start: 10-11-2024 ambulatory New Ibrahim Facility: [facility] Start: 10-07-2024 End: 10-07-[address] [facility] Work Phone: Start: 10-07-2024 End: 10-07-2024 ambulatory New Patrice Facility:[facility] Start: 09-30-2024 End: 09-30-2024 ambulatory New Patrice Facility:[facility] Start: 09-30-2024 End: 09-30-[address] [facility] Work Phone: Start: 09-24-2024 End: 09-24-2024 Patient encounter procedure Alley Walden - -[facility] Work Phone: Start: 09-24-2024 End: 09-24-2024 ambulatory Lex Bryant Facility:[facility] Start: 09-23-2024 ambulatory New Ibrahim Facility: [facility] Start: 09-23-2024 Non-patient / Non-visit Dr. New Ibrahim DO [facility] Start: 09-23-2024 End: 09-23-[address] [facility] Work Phone: Start: 09-23-2024 End: 09-23-2024 ambulatory New Ibrahim Facility:[facility] Start: 09-22-2024 End: 09-22-[address] Lurdes Cormier MD -Laboratory, Specimen Work Phone: Start: 09-22-2024 End: 09-22-[address] Lurdes Cormier MD -[facility] Work Phone: Start: 09-22-2024 End: 09-22-2024 ambulatory Lex Bryant Facility:[facility] Start: 09-21-2024 End: 09-22-2024 ambulatory Lurdes Cormier Facility:[facility] Start: 09-21-2024 Non-patient / Non-visit Dr. New Ibrahim DO [facility] Start: 09-10-2024 ambulatory New Ibrahim Facility: [facility] Start: 09-08-2024 ambulatory New [place] Facility: [facility] Start: 09-04-2024 End: 09-04-2024 ambulatory Ame Landa Facility:[facility] Start: 09-01-2024 ambulatory New [place] Facility: [facility] Start: 07-22-2024 End: 07-22-2024 Office outpatient visit 25 minutes Champ Giles MD Work Phone: [facility] [place] Comment on above: Endometrial cancer ( CMS/HCC) (HCC) (Primary Dx) Start: 07-22-2024 End: 07-22-2024 ambulatory CHAMP GILES [facility] Start: 07-21-2024 End: 07-21-2024 Telephone encounter Cheryle Reynoso MACHINIST OUTSIDE - SUPPLEMENTAL MANAGER Work Phone: [facility] [place] Start: 07-16-2024 End: 08-05-2025 ambulatory [facility] Facility:[facility] Start: 04-17-2024 End: 04-17-2024 Telephone encounter Champ Giles MD Work Phone: [facility] Gynecologic Oncology Start: 04-02-2024 Telephone encounter Daisy subramanian MACHINIST OUTSIDE - SUPPLEMENTAL MANAGER Work Phone: [facility] Gynecologic Oncology Start: 02-11-2024 End: 02-11-[address] Lex Bryant Work Phone: [facility] Work Phone: Start: 02-11-2024 End: 02-11-[address] Lex Bryant Work Phone: [facility]-Laboratory, Specimen Work Phone: Start: 02-11-2024 End: 02-11-[address] Lex Bryant Work Phone: [facility] Work Phone: Start: 01-30-2024 End: 01-30-[address] Samantha Arango Work Phone: [facility] Work Phone: Start: 01-30-2024 End: 01-30-[address] Samantha Arango Work Phone: [facility]-Outpatient Breast Imaging Work Phone: Start: 01-21-2024 End: 01-21-[address] 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 Samantha Arango Work Phone: [facility] Work Phone: Start: 10-15-2023 Telephone encounter Champ Giles MD Work Phone: [facility] Gynecologic Oncology Start: 06-26-[address] Jo Bryant Work Phone: [facility]-Radiation Oncology Start: 06-26-2023 End: 06-26-[address] Lex Bryant Work Phone: [facility] Work Phone: Start: 06-21-2023 End: 06-21-[address] Lex Bryant Work Phone: [facility] Work Phone: Start: 06-21-2023 End: 06-21-[address] Lex Bryant Work Phone: [facility]-Occupational Therapy Work Phone: Start: 06-19-2023 Non-patient / Non-visit Dr. Lex Bryant Work Phone: [facility] Start: 06-18-2023 Non-patient / Non-visit Dr. Lex Bryant Work Phone: [facility] Start: 06-11-2023 Non-patient / Non-visit Dr. Lex Bryant Work Phone: [facility] Start: 06-05-2023 ambulatory CAS YOON MD Facil ity:A Start: 06-04-2023 End: 06-04-[address] Lex Bryant Work Phone: [facility] Work Phone: Start: 05-27-2023 Telephone encounter Champ Giles MD Work Phone: [facility] Gynecologic Oncology Start: 05-27-2023 End: 05-27-2023 Postop follow up visit related to original px Champ Giles MD Work Phone: [facility] Gynecologic Oncology Comment on above: Post-operative state (Primary Dx); Malignant neoplasm of endometrium (HCC) Start: 05-15-2023 Telephone encounter Champ Giles MD Work Phone: [facility] Gynecologic Oncology Start: 05-03-2023 Telephone encounter Daisy White CNP Work Phone: [facility] Gynecologic Oncology Start: 05-03-2023 End: 05-03-[address] Lex Bryant Work Phone: [facility] Work Phone: Start: 04-30-2023 End: 04-30-[address] Lex Bryant Work Phone: [facility] Work Phone: Start: 04-30-2023 End: 04-30-[address] Lex Bryant Work Phone: [facility]-Laboratory, [facility] Start: 04-25-2023 End: 04-25-[address] Lex Bryant Work Phone: [facility] Internal [facility] Work Phone: Start: 04-25-2023 Telephone encounter Champ Giles MD Work Phone: [facility] Gynecologic Oncology Comment on above: surgery scheduling ( Scheduled at [facility]) Start: 04-24-2023 End: 04-24-2023 Office outpatient new 30 minutes Champ Giles MD Work Phone: [facility] Gynecologic Oncology Comment on above: Endometrial cancer ( CMS/HCC) (HCC) (Primary Dx) Start: 04-17-2023 End: 04-17-[address] Lex Bryant Work Phone: [facility] Work Phone: Start: 04-17-2023 End: 04-17-[address] [facility] Start: 04-17-2023 End: 04-17-[address] Lex Bryant Work Phone: [facility] Work Phone: Start: 04-03-2023 Non-patient / Non-visit Dr. Lex Bryant Work Phone: [facility] Start: 04-02-2023 End: 04-03-2023 Evaluation and management of inpatient Dr. Lex Bryant [facility] Work Phone: Start: 04-02-2023 Non-patient / Non-visit Dr. Lex Bryant Work Phone: [facility] Start: 03-25-2023 End: 03-25-2023 Non-patient / Non-visit Dr. Lex Bryant Work Phone: [facility] Work Phone: Start: 03-13-2023 End: 03-13-[address] Lex Bryant Work Phone: [facility] Work Phone: Start: 02-11-2023 End: 02-11-2023 Emergency department patient visit Dr. Lex Bryant Work Phone: [facility]-Emergency Department Start: 01-30-2023 End: 01-30-[address] Lex Bryant Work Phone: [facility] Work Phone: Start: 01-30-2023 End: 01-30-[address] Lex Bryant Work Phone: [facility]-Outpatient Breast Imaging Start: 01-29-2023 End: 01-29-[address] Lex Bryant Work Phone: [facility] Work Phone: Start: 01-29-2023 End: 01-29-[address] Lex Bryant Work Phone: [facility]-Laboratory, Specimen Start: 01-29-2023 End: 01-29-[address] Lex Bryant Work Phone: [facility] Start: 12-19-2022 End: 12-19-[address] Lex Bryant Work Phone: [facility]-Ul[facility]ound, [facility] Start: 12-11-2022 End: 12-11-[address] Lex Bryant Work Phone: [facility] Start: 04-17-2022 End: 04-17-[address] Lex Bryant Work Phone: [facility], [facility] Start: 03-20-2022 End: 03-20-[address] Lex Bryant Work Phone: [facility] Start: 03-06-2022 End: 03-06-[address] Lex Bryant Work Phone: [facility] Internal Medicine Procedures Date Procedure Procedure Detail Performing Clinician Start: 08-05-[address] Lex Bryant DO Work Phone: Start: 08-05-2025 Serum inorganic phos phate measurement Dr. Lex Bryant DO Work Phone: Start: 08-04-2025 Radionuclide whole b usha bone study Dr. Lex Bryant DO Work Phone: Start: 07-30-2025 CT of thorax, abdome n and pelvis with contrast Dr. Lex Bryant DO Work Phone: Start: 07-26-2025 Screening mammograph y of left breast Dr. Lex Bryant DO Work Phone: Start: 06-24-[address] Lex Bryant DO Work Phone: Start: 06-03-[address] Lex Bryant DO Work Phone: Start: 05-13-[address] Lex Bryant DO Work Phone: Start: 05-13-2025 Serum inorganic phos phate measurement Dr. Lex Bryant DO Work Phone: Start: 04-22-[address] Lex Bryant DO Work Phone: Start: 04-01-[address] Lex Bryant DO Work Phone: Start: 04-01-2025 Total iron binding capacity measurement Dr. Lex Bryant DO Work Phone: Start: 03-11-[address] Lex Bryant DO Work Phone: Start: 03-11-2025 Serum inorganic phos phate measurement Dr. Lex Bryant DO Work Phone: Start: 02-18-[address] Lex Bryant DO Work Phone: Start: 02-12-2025 CT of thorax, abdome n and pelvis with contrast Dr. Lex Bryant DO Work Phone: Start: 01-28-2025 Serum inorganic phos phate measurement Dr. Lex Bryant DO Work Phone: Start: 01-28-2025 Total iron binding capacity measurement Dr. Lex Bryant DO Work Phone: Start: 01-12-[address] Lex Bryant DO Work Phone: Start: 12-22-2024 End: 12-22-2024 Iadna-dna/rna gi pthgn multiplex probe tq 6-11 Dr. Lex Bryant DO Work Phone: Start: 12-22-2024 [address] diff[address] e detection Dr. Lex Bryant DO Work Phone: Start: 12-22-[address] Lex Bryant DO Work Phone: Start: 11-26-2024 Measurement of renal function Dr. Lex Bryant DO Work Phone: Comment on above: GFR Calc Start: 09-15-2024 PET study for localization of tumor Dr. Lex Bryant DO Work Phone: Start: 06-25-2024 Blood disorder - ini tial assessment Dr. Lex Bryant DO Work Phone: Start: 06-25-[address] Keegan Bryant DO Work Phone: Start: 06-25-2024 Red blood cell morphology Dr. Lex Bryant DO Work Phone: Start: 01-30-2024 End: 01-30-[address] Samantha Arango Work Phone: Start: 01-30-[address] Samantha Arango Work Phone: Start: 11-27-2023 Follow-up visit Follow-up DAISY HOPSON Start: 05-03-2023 Computed tomography of abdomen and pelvis with contrast Dr. Lex Bryant Work Phone: Start: 04-02-[address] Lex Bryant Work Phone: Start: 04-02-2023 Investigation of transfusion reaction Dr. Lex Bryant Work Phone: Start: 04-02-2023 Microbial culture, routine Dr. Lex Bryant Work Phone: Start: 02-11-2023 Computed tomography of abdomen and pelvis with intravenous contrast Dr. Lex Bryant Work Phone: Start: 01-30-2023 End: 01-30-[address] Lex rByant Work Phone: Start: 12-19-[address] Lex Bryant Work Phone: H/O: hysterectomy Status post hysterectomy Dr. Lex Bryant Work Phone: H/O: hysterectomy Status post hysterectomy Dr. Samantha Arango DO H/O: hysterectomy Status post hysterectomy Dr. Samantha Arango DO H/O: surgery History of lymph node dissection of right axilla Dr. Lex Bryant DO Work Phone: Comment on above: 08/11/[address] neoadjuvant H/O: surgery History of lymph node dissection of right axilla Dr. Lurdes Cormier MD H/O: surgery History of lymph node dissection of right axilla Dr. Lurdes Cormier MD Plan of Treatment Date Care Activity Detail Author Start: 08-24-2025 DXA Bone [Mass/Area] Bone density [facility] Start: 08-24-2025 Dual energy X-ray absorptiometry Dexa Bone Density Study [facility] Start: 08-24-2025 Patient encounter procedure Registered Clinical -Outpatient Bone Densitometry Work Phone: Start: 08-12-2025 Patient encounter procedure Registered Clinical -Laboratory [facility] Start: 08-12-2025 End: 08-12-2025 Patient encounter procedure Hypokalemia -[facility] Work Phone: Start: 08-10-2025 End: 08-10-2025 Patient encounter procedure Anemia -[facility] Work Phone: Start: 08-05-2025 Registered Recurring Registered Recurring -[facility] Start: 08-05-2025 End: 08-05-2025 Patient encounter procedure Anemia -[facility] Work Phone: Start: 08-05-2025 Serum inorganic phosphate measurement [facility] Start: 08-04-2025 Radionuclide whole body bone study Bone Scan Whole Body [facility] Start: 08-04-2025 End: 08-04-2025 Patient encounter procedure Departed Clinical -Nuclear Medicine [facility] Work Phone: Start: 08-04-2025 Venous catheter care management [facility] Start: 07-30-2025 Venous catheter care management [facility] Start: 07-26-2025 MG Breast - left Screening [facility] Start: 07-26-2025 Screening mammography of left breast SCREEN MAMM (CAD) W/JUAN DANIEL UNI L [facility] Start: 06-24-2025 Serum inorganic phosphate measurement [facility] Start: 06-24-2025 [facility] Start: 06-24-2025 Vital signs measurements [facility] Start: 06-03-2025 [facility] Start: 06-03-2025 Vital signs measurements [facility] Start: 05-13-2025 [facility] Start: 05-13-2025 Vital signs measurements [facility] Start: 04-22-2025 [facility] Start: 04-22-2025 Vital signs measurements [facility] Start: 04-01-2025 Gamma glutamyl transferase measurement [facility] Start: 04-01-2025 [facility] Start: 04-01-2025 Vital signs measurements [facility] Start: 03-11-2025 Vital signs measurements [facility] Start: 02-18-2025 Vital signs measurements [facility] Start: 02-12-2025 Venous catheter care management [facility] Start: 01-29-2025 Screening for malignant neoplasm of breast [facility] Start: 01-28-2025 Patient referral [facility] Work Phone: Start: 01-28-2025 [facility] Start: 01-28-2025 Vital signs measurements [facility] Start: 01-12-2025 Venous catheter care management [facility] Start: 01-12-2025 Sigmoidoscopy flx control bleeding SIGMOIDOSCOPY FOR BLEEDING [facility] Start: 01-12-2025 Patient discharge [facility] Start: 01-07-2025 Vital signs measurements [facility] Start: 12-17-2024 Vital signs measurements [facility] Start: 11-26-2024 Vital signs measurements [facility] Start: 11-05-2024 Patient referral [facility] Work Phone: Start: 11-05-2024 Vital signs measurements [facility] Start: 10-15-2024 Vital signs measurements [facility] Start: 09-24-2024 Vital signs measurements [facility] Start: 07-22-2024 End: 07-22-2024 Patient encounter procedure 07/22/2024 12:40 PM EDT Office Visit [facility] [place] [address] [place] [address] Champ Giles MD [address] [place] [address] [facility] [place] Start: 07-08-2024 End: 07-08-2024 Patient encounter procedure 07/08/2024 9:30 AM EDT Office Visit [facility] [address] [place] [phone] Champ Giles MD [address] [place] [address] [facility] Start: 06-26-2024 Administration of blood product [facility] Start: 06-26-2024 [facility] Start: 06-21-2024 COVID-19 Vaccine ( season) COVID-19 Vaccine () [facility] Start: 06-21-2024 Influenza vaccination [facility] Start: 05-27-2024 End: 05-27-2024 Patient encounter procedure 05/27/2024 9:30 AM EDT Office Visit [facility] [address] [place] [address] Daisy Hopson, MACHINIST OUTSIDE - SUPPLEMENTAL MANAGER [address] [place] [address] [facility] Start: 03-19-2024 Venous catheter care management [facility] Start: 01-31-2024 Screening for malignant neoplasm of breast Mammogram [facility] Start: 11-27-2023 End: 11-27-2023 Patient encounter procedure [facility] Start: 10-21-2023 Medicare Advantage Annual Wellness Visit Medicare Advantage Annual Wellness Visit [facility] Start: 06-21-2023 COVID-19 Vaccine ( season) COVID-19 Vaccine () [facility] Start: 06-21-2023 Influenza vaccination Influenza Vaccine (#1) [facility] Start: 06-04-2023 Patient referral [facility] Work Phone: Start: 05-27-2023 End: 05-27-2023 Patient encounter procedure 05/27/2023 10:45 AM EDT Office Visit [facility] Gynecologic Oncology [address] [place] [phone] Champ Giles MD [address] [place], [place] [id number] [facility] Gynecologic Oncology Start: 05-14-2023 End: 05-14-2023 Admission to same day surgery center 05/14/2023 9:00 AM EDT - 05/14/2023 10:00 AM EDT Surgery [facility] MAIN OR [address] [place] [phone] Champ Giles MD [address] [facility] [address] [place] [address] ROBOTIC LYMPH NODE SECTION [54003 (CPT )] [facility] MAIN OR Comment on above: ROBOTIC LYMPH NODE SECTION [40896 (CPT ) ] Start: 05-14-2023 End: 05-14-2023 Inj radioactive tracer for id of sentinel node LYMPHANGIOGRAPHY FOR IDENTIFICATION SENTINEL NODE Malignant neoplasm of endometrium (HCC) 05/14/2023 9:00 AM EDT [facility] Operating Room Start: 05-14-2023 Subsequent hospital visit by physician 05/14/2023 9:00 AM EDT Hospital Encounter [facility] MAIN OR [address] [place] [phone] Champ Giles MD [address] [facility] [address] [place] [address] [facility] MAIN OR Start: 05-07-2023 End: 05-07-2023 Admission to establishment [facility] Pre-Admit Testing Start: 04-24-2023 End: 04-24-2024 Creatinine [Mass/volume] in Serum or Plasma Creatinine, Serum Lab Routine Endometrial cancer (CMS/HCC) (HCC) Expected: 04/24/2023 (Approximate), Expires: 04/24/2024 [facility] Comment on above: Expected: 04/24/2023 (Approximate), Expi res: 04/24/2024 Start: 04-24-2023 End: 04-24-2024 CT Abdomen and Pelvis W contrast IV CT abdomen pelvis w contrast Imaging Routine Endometrial cancer (CMS/HCC) (HCC) Expected: 04/24/2023, Expires: 04/24/2024 [facility] [employer] Work Phone: Comment on above: Expected: 04/24/2023, Expires: Start: 04-03-2023 Patient discharge [facility] Start: 04-02-2023 Following clinical pathway protocol [facility] Start: 04-02-2023 Ambulation therapy management [facility] Start: 04-02-2023 Continuous pulse oximetry [facility] Start: 04-02-2023 Elevation of head of bed [facility] Start: 04-02-2023 Incentive spirometry [facility] Start: 04-02-2023 Measuring intake and output [facility] Start: 04-02-2023 Notification of physician [facility] Start: 04-02-2023 Oxygen therapy [facility] Start: 04-02-2023 Patient education [facility] Start: 04-02-2023 Procedures relating to eating and drinking [facility] Start: 04-02-2023 Taking patient vital signs [facility] Start: 04-02-2023 [facility] Start: 04-02-2023 Introduction of urinary catheter [facility] Start: 04-02-2023 Admission procedure [facility] Start: 04-02-2023 Anesthesia intraperitoneal lower abd w/laps nos ANESTH SURG LOWER ABDOMEN [facility] Start: 04-02-2023 Laps total hysterect 250 gm/< w/rmvl tube/ovary TLH W/T/O 250 G OR LESS [facility] Start: 04-02-2023 Admission procedure [facility] Start: 01-29-2023 Liquid based cervical cytology screening [facility] Start: 01-11-2021 COVID-19 Vaccine (3 - Booster for Pfizer series) COVID-19 Vaccine (3 - Booster for Pfizer series) [facility] Start: 2019 Pneumococcal Vaccine: 65+ Years (1 - PCV) Pneumococcal Vaccine: 65+ Years (1 - PCV) [facility] Start: 2019 Pneumococcal Vaccine: 65+ Years (1 of 1 - PCV) Pneumococcal Vaccine: 65+ Years (1 of 1 - PCV) [facility] Start: 2014 RSV Immunization aged 60 or older (1 - 1-dose 60+ series) RSV Immunization aged 60 or older (1 - 1-dose 60+ series) [facility] Start: 2004 Zoster Vaccines (1 of 2) Zoster Vaccines (1 of 2) [facility] Start: 1973 DTaP/Tdap/Td Vaccines (1 - Tdap) DTaP/Tdap/Td Vaccines (1 - Tdap) [facility] Start: 1972 Diabetes mellitus screening Diabetes Screening [facility] Start: 1972 Hepatitis C screening Hepatitis C Screening [facility] Start: 1966 Depression Screening Depression Screening [facility] Start: 1954 Lipid panel Lipid Panel [facility] Start: 1954 Medicare Advantage Annual Wellness Visit (AWV) Medicare Advantage Annual Wellness Visit (AWV) [facility] Start: 1955 Screening for malignant neoplasm of colon [facility] Start: 1955 Screening for osteoporosis Bone Density Scan [facility] Alanine aminotransfe rase [Enzymatic activity/volume] in Serum or Plasma [facility] Albumin [Mass/volume ] in Serum or Plasma [facility] Alkaline phosphatase [Enzymatic activity/volume] in Serum or Plasma [facility] Anion gap in Serum o r Plasma [facility] Bilirubin, total measurement [facility] BUN/Creatinine ratio [facility] Calcium [Mass/volume ] in Serum or Plasma [facility] Carbon dioxide, tota l [Moles/volume] in Central venous blood [facility] CBC W Auto Different ial panel - Blood [facility] CBC W Auto Different ial panel - Blood [facility] Colonoscopy [facility] Comprehensive metabo lic 1999 panel - Serum or Plasma [facility] metabo lic 1999 panel - Serum or Plasma [facility] Creatinine [Mass/vol ume] in Serum or Plasma [facility] Creatinine and Glome rular filtration rate.predicted panel - Serum, Plasma or Blood [facility] CT Abdomen and Pelvi s W contrast IV [facility] CT Abdomen and Pelvi s W contrast IV [facility] Erythrocyte mean corpuscular volume determination [facility] Ferritin [Mass/volum e] in Serum or Plasma [facility] Ferritin [Mass/volum e] in Serum or Plasma [facility] Glomerular filtratio n rate/1.73 sq M.predicted [Volume Rate/Area] in Serum, Plasma or Blood by Creatinine-based formula (CKD-EPI) [facility] Glucose [Mass/volume ] in Serum or Plasma [facility] Hematocrit [Volume Fraction] of Blood [facility] Hemoglobin [Mass/vol ume] in Blood [facility] Iron and Iron bindin g capacity panel - Serum or Plasma [facility] Iron and Iron bindin g capacity panel - Serum or Plasma [facility] Leukocytes [#/volume ] in Blood [facility] Magnesium measurement [facility] Magnesium measurement [facility] Magnesium measurement [facility] Magnesium measurement [facility] Mean corpuscular hemoglobin concentration determination [facility] Mean corpuscular hemoglobin determination [facility] Measurement of renal function [facility] Neutrophil count [facility] Neutrophil percent differential count [facility] NM Whole body Bone Views [facility] Osmolality of Urine [facility] Path report.final Dx Spec Wo [facility] Patient Education ED Pelvic Pain , Unknown Cause [facility] Work Phone: Patient referral [facility] Work Phone: Platelets [#/volume] in Blood [facility] Potassium measurement [facility] Red blood cell count [facility] Red cell distributio n width determination [facility] Serum chloride measurement [facility] Serum inorganic phos phate measurement [facility] Serum inorganic phos phate measurement [facility] Serum inorganic phos phate measurement [facility] Sodium measurement [facility] Total protein measurement [facility] Urea nitrogen [Mass/volume] in Serum or Plasma [facility] Immunizations Immunization Date Immunization Notes Care Provider Fa cility 11-16-2020 Covid ([employer]) Dr. Lex mercado Work Phone: [facility] 10-26-2020 Covid ([employer]) Dr. Lex mercado Work Phone: [facility] Payers Date Payer Category Payer Self-pay [id number] 2023 Unknown [id number] 2022 Medicare [employer] [id number] 2022-Present [address] [place] [address] Medicare O [id number] 2022 Medicare [id number] 2014 Unknown [id number] 1954 Unknown [id number] 2.16.840.1.481111.3.579.2.627 Medicare [id number] Unknown [id number] Unknown [id number] Unknown Unknown [id number] 2.16.840.1.842717.3.579.2.462 Unknown [id number] 2.840.1.358705.3.579.2.462 Unknown [id number] 2.16840.1.145458.3.579.2.462 Unknown [id number] 2.16840.1.400758.3.579.2.462 Unknown [id number] 2.16840.1.305321.3.579.2.462 Unknown [id number] 2.16.840.1.151468.3.579.2.462 Unknown [id number] 2.16840.1.829462.3.579.2.462 Unknown [id number] .16840.1.927982.3.579.2.462 Unknown [id number] 2.16.840.1.227312.3.579.2.462 Unknown [id number] 2.16840.1.054980.3.579.2.462 Unknown [id number] 2.16.840.1.411068.3.579.2.462 Unknown [id number] 2.16.840.1.875453.3.579.2.462 Unknown [id number] 2.16.840.1.879229.3.579.2.462 Unknown [id number] 2.16.840.1.369340.3.579.2.462 Unknown [id number] 2.16.840.1.697767.3.579.2.462 Unknown [id number] 2.16840.1.585711.3.579.2.462 Unknown [id number] 2.16840.1.491187.3.579.2.462 Unknown [id number] 2.840.1.759159.3.579.2.462 Unknown [id number] 2.840.1.111694.3.579.2.462 Unknown [id number] 2.840.1.954607.3.579.2.462 Unknown [id number] 2.840.1.858681.3.579.2.462 Unknown [id number] 2.840.1.457016.3.579.2.462 Unknown [id number] 2.840.1.079456.3.579.2.462 Unknown [id number] 2.16840.1.172234.3.579.2.462 Unknown [id number] 2.840.1.499094.3.579.2.462 Unknown [id number] 2.16840.1.134963.3.579.2.462 Unknown [id number] 2.16840.1.922199.3.579.2.462 Unknown [id number] 2.16840.1.788566.3.579.2.462 Unknown [id number] 2.16.840.1.605158.3.579.2.462 Unknown [id number] 2.16840.1.807590.3.579.2.462 Unknown [id number] 2.16.840.1.640509.3.579.2.462 Unknown [id number] 2.16.840.1.249660.3.579.2.462 Unknown [id number] 2.16.840.1.076112.3.579.2.462 Unknown [id number] 2.16.840.1.663719.3.579.2.462 Unknown [id number] 2.16.840.1.030808.3.579.2.462 Unknown [id number] 2.16.840.1.579419.3.579.2.462 Unknown [id number] 2.16.840.1.547067.3.579.2.462 Unknown [id number] 2.16.840.1.546817.3.579.2.462 Unknown [id number] 2.16.840.1.835668.3.579.2.462 Unknown [id number] 2.16.840.1.127555.3.579.2.462 Unknown [id number] 2.16.840.1.694233.3.579.2.462 Unknown [id number] 2.16.840.1.796182.3.579.2.462 Unknown [id number] 2.16.840.1.304946.3.579.2.462 Unknown [id number] 2.16.840.1.674751.3.579.2.462 Unknown [id number] 2.16.840.1.126310.3.579.2.462 Unknown [id number] 2.16.840.1.941179.3.579.2.462 Unknown [id number] 2.16.840.1.848529.3.579.2.462 Unknown [id number] 2.16.840.1.086988.3.579.2.462 Unknown [id number] 2.16.840.1.929102.3.579.2.462 Unknown [id number] 2.16.840.1.483989.3.579.2.462 Unknown [id number] 2.16.840.1.103278.3.579.2.462 Unknown [id number] 2.16.840.1.691368.3.579.2.462 Unknown [id number] 2.16.840.1.259096.3.579.2.462 Unknown [id number] 2.16.840.1.636623.3.579.2.462 Unknown [id number] 2.16.840.1.809071.3.579.2.462 Unknown [id number] 2.16.840.1.378787.3.579.2.462 Unknown [id number] 2.16.840.1.640089.3.579.2.462 Unknown [id number] 2.16.840.1.952932.3.579.2.462 Unknown [id number] 2.16.840.1.785383.3.579.2.462 Unknown [id number] 2.16.840.1.169949.3.579.2.462 Social History Date Type Detail Facility Start: 03-20-2022 End: 01-21-2024 Tobacco smoking status MEIS Unknown if ever smoked [facility] Start: 04-10-2019 Non-smoker [facility] Start: 1955 Sex Assigned At Female [facility] Start: 04-22-2023 End: 06-17-2025 Tobacco smoking status MEIS Never smoked tobacco [facility] Start: 04-22-2023 Tobacco use and exposure Smokeless tobacco non-user [facility] Start: 04-24-2023 Alcohol intake Lifetime non-d solitario (finding) [facility] Start: 04-24-2023 End: 11-27-2023 History of Social function [facility] Start: 04-24-2023 End: 11-27-2023 Tobacco use panel [facility] Start: 04-18-2023 Gender identity Identifies as female gender (finding) [facility] Start: 04-14-2023 End: 05-27-2023 Exposure to SARS-CoV-2 (event) Not sure [facility] Start: 05-14-2023 End: 11-27-2023 Alcohol intake Current drinker of alcohol (finding) [facility] Start: 05-07-2023 Alcohol Comment once a year [facility] Start: 01-12-2025 End: 02-06-2025 Sex Female (finding) [facility] NEGATED: Highlighted row [facility] NEGATED: Highlighted row Not [facility] Medical Equipment Procedure Code Equipment Code Equipment Origin al Text Equipment Identifier Dates Modified radical mastectomy with axillary lymph node dissection Ligation clip, metallic [id number] FDA Start: 08-11-2024 Modified radical mastectomy with axillary lymph node dissection Ligation clip, metallic ()[id number] FDA Start: 08-11-2024 Insertion, vascular access port ([id number]) Vascular port/catheter ()[id number] FDA Start: 03-04-2024 Cystoscopy, with retrograde pyelogram, ureteroscopy, laser procedure, and stent inser Polymeric ureteral stent ()[id number] FDA Start: 03-12-2024 Cystoscopic insertion of stent ([id number]) Polymeric ureteral stent ()[id number] FDA Start: 05-07-2024 Goals Date Patient Goal Desired Activity /State Functional Status Date Assessment Result Facility 04-03-2023 Functional status Ambulates [facility] Work Phone: Mental Status Date Assessment Result Facility 01-12-2025 Cognitive function Voice/Name [facility] Work Phone: 06-04-2024 Cognitive function Level Of Cons ciousness Awake;Alert;Appropriate;Follow s Commands [facility] Work Phone: 05-28-2024 Cognitive function Patient Oribairon canseco Person;Place;Time [facility] Work Phone: 04-03-2023 Cognitive function Level Of Cons ciousness Awake;Alert;Appropriate;Follow s Commands [facility] Work Phone: 04-03-2023 Cognitive function Light Pain [facility] Work Phone: Clinical Notes 01-29-2023 to 08-10-2025 Note Date & Type Note Facility 08-10-2025 Progress note [facility] 08-05-2025 Progress note [facility] 07-30-2025 Progress note [facility] 07-26-2025 Progress note [facility] 07-26-2025 Progress note Note Date/Time July 26, 2025 2:04pm [facility] [address], [address] [place] [address] OFFICE VISIT Date of Service: 07/26/25 MR#: [id number] Acct: [id number] Name: LYSSA VASQUEZ Rep #: [id number] : 1955 Provider: Dr. 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 Is patient in pain?: No Allergies No Known Allergies Allergy (Verified 07/26/25 13:42) Medications ?Medication ?Instructions ?Recorded ?Confirmed ?Type vibegron 75 mg tablet (Gemtesa) 75 mg PO DAILY 3 07/26/25 History acetaminophen 500 mg tablet 500 mg PO Q6H PRN pain 07/26/25 History (Tylenol Extra Strength) ondansetron 8 mg disintegrating 8 mg PO Q8H PRN nausea and 08/17/24 07/26/25 Rx tablet vomiting #20 tabs lisinopril 40 mg tablet 40 mg PO DAILY #90 tabs 02/0 05/1407/26/25 Rx magnesium oxide 400 mg PO TID #90 caps 03/1007/26/25 Rx mesalamine 1,000 mg rectal 1 g MS QHS 90 days #90 ea 0 03/17/25 07/26/25 Rx suppository (Canasa) Is last menstrual period known: No Post menopausal: Yes Patient : No : No PFSH Medical History HER2-positive carcinoma of breast Generalized weakness 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 Blood in urine Rectal bleeding Diarrhea due to drug Prerenal azotemia Dysuria Anemia due to chronic blood loss Gastric reflux Acid reflux Edema of both lower legs Mass in the abdomen Hypomagnesemia Diarrhea Encounter for chemotherapy management Abnormal CT of the abdomen Port-A-Cath in place Anxiety Bladder disease History of diverticulitis History of echocardiogram Cancer of right female breast Encounter for education Wears hearing aid Wears glasses Wears contact lenses Post-menopausal Cancer Back pain Migraine headache Non-smoker History of edema History of stress test Cardiology follow-up encounter Hx of vaginal delivery Mitral valve prolapse Chronic headaches Back problem Anemia Arthritis Hypertension Surgical History History of lymph node dissection of right axilla S/P right mastectomy History of renal stent Hx of cystoscopy Hx of surgical procedure Status post total hysterectomy and bilateral salpingo-oophorectomy S/P cystoscopy Hx of right breast biopsy Hx of colonoscopy History of orthopedic surgery History of excision of pilonidal cyst Family History Mother Diabetes Hypertension Osteoarthritis Colon cancer Grandfather Heart disease Sister Lupus Fibromyalgia Sister , December 2022 from post op PE Endometrial cancer Father Cancer prostate. Social History Smoking Status: Never smoker alcohol intake: never substance use type: does not use caffeine: Yes what type of physical activity do you participate in: walking frequency: 3-4 times per week seatbelt use: always do you feel safe at home: Yes additional social history: -Dony HPI 6 month f/u Details: The patient is a 69-year-old female with a history of uterine cancer presenting for a follow-up visit. Uterine Cancer History - Completed chemotherapy, experiencing nausea and fatigue but no vomiting. - Reports loss of taste and smell during chemotherapy, which is gradually returning. - Follow-up scan scheduled for Saturday, with a follow-up appointment with oncology next week. - Has not seen Dr. Giles recently as he did not recommend any further follow up as to be expectged. - Underwent surgery in May 2023. - Last follow-up was in January 2025. - No vaginal bleeding reported. Breast Cancer Screening - Recent mammogram performed; awaiting results. - Follow-up with Dr. Cormier next month. Bowel Issues - Reports ongoing bowel problems, including bleeding. - Used suppositories during chemotherapy, which were stopped after treatment; monitoring progress over the next two months. - Bleeding attributed to lesions inside the bowel, not hemorrhoids. Social History - Enjoyed swimming with granddaughters and camping with family over the summer. Female Reproductive History Menopausal Symptoms: No hot flashes, No night sweats, No weight change, No mood changes, No difficulty concentrating, No sleep problems and No change in libido History 2 Elective abortions Hx Para 2 Spontaneous abortions Hx # Term Pregnancies Ectopic pregnancies Hx # Pregnancies Multiple births # of living children Past Pregnancies Del. Date Name GA/Weeks Outcome Route Bth Weight Infant Gen Labor Lgth Anesthesia Del Locatn Provider FOB Unknown Talib Unknown Natacha RIZZO Const Constitutional: Reports as per HPI; Denies fatigue, increased appetite, poor appetite, night sweats, weight gain or weight loss Cardio Card: Denies chest pain Resp Resp: Denies cough or dyspnea GI GI: Reports as per HPI; Denies abdominal pain, bloating, constipation, nausea or vomiting : Reports as per HPI and other; Denies difficulty voiding, dysuria, hematuria, hot flashes, nipple discharge, pelvic pain, prolapse symptoms, urinary frequency, urinary incontinence, urinaryurgency, vaginal discharge, vaginal dryness, vaginal odor or vaginal pruritus Skin Skin/Breast: Denies changing lesions, breast mass, breast pain, breast skin changes or nipple discharge Psych Psych: Denies anxiety, change in libido, depression or difficulty concentrating Exam Const General: cooperative, healthy appearing, comfortable, no acute distress, well developed and well groomed [facility] Head: normal to inspection and normocephalic Ears: hearing grossly normal bilaterally and external ears normal Nose: external nose normal Face and sinus: normal facial exam Neck Neck: normal visual inspection, full ROM and no lymphadenopathy Thyroid: thyroid normal Chest Breast palpation: no axillary lymphadenopathy Resp Effort & Inspection: normal respiratory effort GI Inspection: normal to inspection and non-distended Palpation: soft, no hepatosplenomegaly and no guarding General: bladder normal to palpation External Female Exam: normal external appearance, normal appearance of the urethra and no lesions Urethra: normal appearance of the urethra and normal palpation Bimanual Exam- Vagina & Uterus: bladder normal to palpation Other: The vagina is shortened and scarred. No masses felt. somewhat tender to palpation. no lymphadenopathy of the groin Skin General: no rashes or lesions noted Neuro General: patient alert, moves all extremities and no focal motor deficits Extrem General: normal to inspection and no pedal edema Psych Appearance: grossly normal Mental Status: mental status grossly normal Affect: normal affect Speech and Movement: speech and movement normal Attitude: cooperative Coding Level of Care Code Off vis,est,level 3 Diagnoses Breast cancer of upper-outer quadrant of right female breast C50.411 Uterine carcinoma C55 Status post hysterectomy Z90.710 Assessment and Plan Assessment and Plan (1) Breast cancer of upper-outer quadrant of right female breast: Status: Acute (2) Uterine carcinoma: Status: Acute (3) Status post hysterectomy: Status: Acute Plan: # Personal history of malignant neoplasm of uterus (Z85.42) # Encounter for follow-up examination after completed treatment for malignant neoplasm (Z08) - Completed chemotherapy; no evidence of nodules or suspicious findings on pelvic exam. - Continue follow-up exams every 6 months for 5 years post-treatment, then annually. (initially I told her 2 years, but I was mistaken on that. I will remind her next visit) - Next follow-up in 6 months. 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 - Lesions identified as source of bleeding. - Monitor for 2 months to assess for improvement. # Encounter for screening mammogram for malignant neoplasm of breast (Z12.31) - Mammogram completed; awaiting radiologist interpretation. - Follow-up with Dr. Cormier next month. Plan continue q 6 month check ups for 5 years for h/o uterine cancer pt states that her oncologist ordered a CT for next month. overall doing well. 07/26/25 1407 <Electronically signed by Samantha Cheng DO> Date _ Samantha Arango DO Cosigner Signature: Date (if applicable) CC: ~ [facility] Work Phone: [phone]) 870-362509-04-2025 Progress [facility] [address] [place] [address]. [place] [address] OFFICE VISIT Date of Service: 06/24/25 1029 MR#: [id number] Acct: [id number] Name: LYSSA VASQUEZ Rep #: [id number] : 1955 From: Em jara MD Age/Sex: 69/F Location: [facility] [place] Status: Signed HPI Subjective Date of Service 06/24/25 Chief Complaint Breast cancer on treatment History of Present Illness 68-year-old female with: 1. Right breast cancer: She presented after a self palpated painless lump in the right breast. She has been compliant with annual screening mammography and that of January 2023 showed no suspicious abnormalities. Her family history is notable for a sister with endometrial cancer, brother withprostate cancer andfather with colon cancer. In 2022 after the diagnosis of endometrial cancer she underwent a comprehensive genetic testing andno known deleterious mutation was detected. January 30, 2024 diagnostic mammogram: IMPRESSION: The palpable lump corresponds to 1.3 cm x 1.3 cm spiculated nodule in the slightly upper retroareolar region of the right breast. January 30, 2024 diagnostic ultrasound: IMPRESSION: 1.6 cm x 1.6 cm x 1.6 cm complex heterogeneous necrotic mass at the 10:00 position of the breast at 2 cm from nipple. February 11, 2024 Right breast mass, 10 o?clock, 2.0cm, core biopsy: Invasive ductal carcinoma. See cancer summary in comment section. JOSUE/ 02/13/2024 COMMENT INVASIVE BREAST CANCER SUMMARY: Procedure: Needle core biopsy Specimen Laterality: Right Tumor site: 10 o?clock, 2.0cm Histologic type: Invasive ductal carcinoma Provisional Histologic grade (Alix Grade): Tubule Differentiation Score: 2 Nuclear Pleomorphism Score: 2 Mitotic Rate Score: 1 Overall grade: 1 (score of 5) Tumor Size (greatest dimension): 0.9cm in greatest length Ductal Carcinoma Insitu: Present, focal Architectural Pattern: Cribriform Nuclear Grade: 2 (intermediate) Necrosis: Not identified Angiolymphatic Invasion: not identified. Microcalcifications: Not identified Additional Findings: Immunohistochemistry ([id number]) supports the above diagnosis. ER: positive (>95%, strong intensity) MS: positive (64%, moderate to strong intensity) Her-2 krysta: positive (3+) March 17, 2024 Right axillary lymph node, core biopsy: Metastatic carcinoma consistent with breast primary. RESULTS: ANTIBODY / CLONE RESULT P53 (DO-7) positive, wild type pattern Ki-67 (30-9) positive, 25% CK8 (60fhniR28) positive CK5-6 (D5 & 1684) negative Calponin-1 (GI392O) negative P40 (BC28) negative E-Cad (ECH-6) positive MOC-31 (4561) positive, dim MORPHOMETRIC ANALYSIS ER (clone 6F11) >95% MS (clone 16/1E2) >95% Her-2Neu (clone CB11) 2+ IN SITU HYBRIDIZATION (DERREK) FOR HER2 Interpretation: Not Amplified 2. A cystic mass in the retroperitoneum incidentally found on imaging in February 2024: Patient's past medical history is notable for history of endometrial cancer, stage II (T2, N0, M0) status post robotic total hysterectomy with bilateral salpingo-oophorectomy followed by adjuvant radiation therapy June - July2023. March 06, 2024 CT abdomen and pelvis: IMPRESSION: Moderate left hydronephrosis and ureteral dilatation to the mid ureter where there is a focal dilatation of the ureter with a decompressed distal ureter and no obstructing stone. Significant stranding of the perinephric fat and clinical correlation is recommended to exclude pyelonephrosis.. March 10, 2024 CT abdomen and pelvis with and without contrast: IMPRESSION: Originally thought to be part of the dilated left ureter is a cystic mass projecting between the left common iliac artery and the psoas muscle measuring 4.2 x 2.7 x 2.7 cm which is likely responsible for obstructing the left ureter at this level. The fluid density measures simple fluid on Hounsfield units. This could represent a necrotic lymph node or retroperitoneal fibrosis with pseudocyst formation or desmoid reaction due to sequela from radiation therapy March 12, 2024 cystoscopy, left retrograde pyelogram, left ureteroscopy with left ureteral stent insertion. March 27, 2024 abdomen MRI: IMPRESSION: Cystic lesion within the retroperitoneum which may represent urinoma, lymphocele/lymphangioma, cystic mesothelioma or neoplasm. April 08, 2024 CT-guided biopsy of abdominal mass: Retroperitoneal mass, CT guided core biopsy: Fat necrosis and fibrosis. Skeletal muscle tissue with reactive and focal degenerative change. No evidence of malignancy July 17, 2024 CT abdomen and pelvis: IMPRESSION: 1. Decreasing size of the cystic lesion of the retroperitoneum. 2. Interval decompression of the left hydronephrosis and hydroureter with placement of a double-J ureteral stent catheter. July 22, 2024 [facility] oncology follow-up (Dr. Giles): Impression residual cysticlesion in the left periaortic area is most likely a benign lymphoid cyst with very mild residual hydronephrosis. August 11, 2024: Right breast mastectomy with sentinel lymph node biopsy: FROZEN SECTION DIAGNOSIS A. Right axillary sentinel lymph node, biopsy: One out of three lymph nodes, positive for macrometastatic carcinoma. AM.mr 08/11/2024 MICROSCOPIC DIAGNOSIS A. Right axillary sentinel lymph node, biopsy: One out of three lymph nodes, positive for macrometastatic carcinoma. See comment. B. Right breast, mastectomy: Invasive ductal carcinoma. See cancer summary in the comment section. C. Right axillary lymph node, regional dissection: Fifteen out of fifteen lymph nodes, negative for metastatic carcinoma. See comment. SJ.mr 08/14/2024 COMMENT A. The largest metastatic focus of measures 0.8 x 0.3cm. Extranodal extension isnot seen. The lymph nodes are negative for metastatic carcinoma on multiple H & E levels and immunohistochemical stains for cytokeratins ([id number], BLOCK A1). C. Immunohistochemistry ([id number]) supports the above diagnosis. (A1 to A3) B. BREAST CANCER SUMMARY Procedure - Mastectomy Specimen laterality - Right Invasive tumor: Tumor site ? 10o?clock, 2cm from nipple, as per clinical information Tumor size ? 1.5 x 1.2 x 1.0 cm Histologic type ? Invasive ductal carcinoma, not otherwise specified Histologic grade (Portia grade): Glandular/tubular differentiation score - 2 Nuclear pleomorphism score - 2 Mitotic count score - 1 Overall grade - grade 1 (score of 5) Tumor focality ? Single focus of invasive carcinoma Ductal carcinoma in situ - Present Negative for extensive intraductal component (EIC). Size (extent) of DCIS ? Ductal carcinoma in situ consists of <5% of the total tumor involved Number of blocks with DCIS - 1 Number of blocks examined - 12 Architectural pattern - Cribriform Nuclear grade - grade 2 (intermediate) Necrosis ? Not identified Lobular carcinoma in situ ? Not identified Tumor extension: Skin ? Present and not involved Nipple ? Ductal carcinoma does not involve nipple epidermis Skeletal muscle ? Skeletal muscle is not present Margins: Margins are free of invasive ductal carcinoma and ductal carcinoma in situ are 4.5cm away from the closest posterior margin Regional lymph nodes: Number of lymph nodes examined - 18 Number of sentinel lymph nodes examined - 3 Number of lymph nodes with macrometastases - 1 Number of lymph nodes with micrometastases or isolated tumor cells - 0 Size of largest metastatic deposits ? 0.8 x 0.3cm (measured microscopically) Extranodal extension ? Not identified Distal metastases- Not applicable Treatment effect ? In the breast- Minimal response to presurgical therapy in the invasive carcinoma, In the lymph node- No definite response to presurgical therapy in the metastaticcarcinoma. Lymph vascular invasion ? Not identified Dermal lymph vascular invasion ? Not identified Ancillary Studies: Previously performed on same tumor ([id number] / [id number]) ER: positive (>95%, strong intensity) MS: positive (64%, moderate to strong intensity) Uuh1oqt: positive (3+) Microcalcifications ? Present in the invasive carcinoma and non-neoplastic tissue PATHOLOGIC STAGE: pT1c (y) pN1a pMx February 12, 2025 CT chest: Lungs and Airways: Increased linear markings with areas of confluence in the anterior aspect of theright upper lobe suggestive of post radiation fibrosis/pneumonitis. The changes extend into the anterior aspect of the right middle lobe. There is a 5.75 mm nodule in the anterior aspect of the right lower lobe as seen on axial image number 83 this most likely represents focal area of scarring. February 12, 2025 CT abdomen and pelvis: IMPRESSION: Further decrease in size with almost complete resolution of the previously seen left retroperitoneal soft tissue density. Stable left hydronephrosis and left hydroureter. Circumferential wall thickening of the rectum. Treatment summary and response: * Neoadjuvant TCHP: March 19, 2024-July 02, 2024 (6 cycles). * Mastectomy with sentinel lymph node biopsy August 11, 2024. * Kadcyla (Ado- trastuzumab) September 2024?June 2025 (14 cycles) * Adjuvant radiation therapy to right breast and axilla September 2024. 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 Blood in urine Rectal bleeding Diarrhea due to drug Prerenal azotemia Dysuria Anemia due to chronic blood loss Gastric reflux Acid reflux Edema of both lower legs Mass in the abdomen Hypomagnesemia Diarrhea Encounter for chemotherapy management Abnormal CT of the abdomen Port-A-Cath in place Anxiety Bladder disease History of diverticulitis History of echocardiogram Cancer of right female breast Encounter for education Wears hearing aid Wears glasses Wears contact lenses Post-menopausal Cancer Back pain Migraine headache Non-smoker History of edema History of stress test Cardiology follow-up encounter Hx of vaginal delivery Mitral valve prolapse Chronic headaches Back problem Anemia Arthritis Hypertension Surgical History History of lymph node dissection of right axilla S/P right mastectomy History of renal stent Hx of cystoscopy Hx of surgical procedure Status post total hysterectomy and bilateral salpingo-oophorectomy S/P cystoscopy Hx of right breast biopsy Hx of colonoscopy History of orthopedic surgery History of excision of pilonidal cyst Family History Mother Diabetes Hypertension Osteoarthritis Colon cancer Grandfather Heart disease Sister Lupus Fibromyalgia Sister , December 2022 from post op PE Endometrial cancer Father Cancer prostate. Social History Smoking Status: Never smoker alcohol intake: never substance use type: does not use caffeine: Yes what type of physical activity do you participate in: walking frequency: 3-4 times per week seatbelt use: always do you feel safe at home: Yes additional social history: -Dony ROS Constitutional Constitutional: Reports systems reviewed and no addt'l complaints, except as documented, fatigue and other Details: Able to do ADL at own. ; Denies fever(s) or weight loss Eyes Eyes: Reports systems reviewed and no addt'l complaints, except as documented ENT HEENT: Reports systems reviewed and no addt'l complaints, except as documented; Denies mouth lesions Cardiovascular Cardiovascular: Reports systems reviewed and no addt'l complaints, except as documented; Denies chest pain with activity or edema Respiratory/Chest Respiratory/Chest: Reports systems reviewed and no addt'l complaints, except as documented; Denies cough or dyspnea on exertion Gastrointestinal Gastrointestinal: Reports systems reviewed and no addt'l complaints, except as documented, hematochezia and other Details: Rectal bleeding is less on treatmentfor proctitis ; Denies diarrhea, melena or nausea Genitourinary Genitourinary: Reports systems reviewed and no addt'l complaints, except as documented; Denies hematuria Musculoskeletal Musculoskeletal: Reports systems reviewed and no addt'l complaints, except as documented; Denies back pain Integumentary Integumentary: Reports systems reviewed and no addt'l complaints, except as documented; Denies new lesions Neurologic Neurologic: Reports systems reviewed and no addt'l complaints, except as documented and paresthesias RLE and LLE; Denies focal weakness or weakness Psychiatric Psychiatric: Reports systems reviewed and no addt'l complaints, except as documented Endocrine Endocrinology: Reports systems reviewed and no addt'l complaints, except as documented Hematologic/Lymphatic Hematologic/Lymphatic: Reports systems reviewed and no addt'l complaints, exceptas documented Allergic/Immunologic Allergic/Immunologic: Reports systems reviewed and no addt'l complaints, except as documented Intake Vital Signs 06/03/25 11:14 06/24/25 09:36 06/24/25 10:29 06/24/25 10:32 Height 5 ft 6 in 5 ft 6 in 5 ft 6 in Weight: 75.296 kg 75.296 kg BMI 26.8 BP 158/79 H Blood Pressure Location Lt brachial Position Sitting Respiration 18 Pulse 84 Pulse Source Monitor Temp 98.4 F Temperature Source Temporal Artery Pulse Oximetry (%) 96 Oxygen Delivery Method room air Intake Is patient in pain?: No Allergies No Known Allergies Allergy (Verified 06/24/25 10:45) Medications ?Medication ?Instructions ?Recorded ?Confirmed ?Type vibegron 75 mg tablet (Gemtesa) 75 mg PO DAILY 3 06/24/25 History acetaminophen 500 mg tablet 500 mg PO Q6H PRN pain 06/24/25 History (Tylenol Extra Strength) ondansetron 8 mg disintegrating 8 mg PO Q8H PRN nausea and 08/17/24 06/24/25 Rx tablet vomiting #20 tabs lisinopril 40 mg tablet 40 mg PO DAILY #90 tabs 02/0 05/1406/24/25 Rx magnesium oxide 400 mg PO TID #90 caps 03/1006/24/25 Rx mesalamine 1,000 mg rectal 1 g MS QHS 90 days #90 ea 0 03/17/25 06/24/25 Rx suppository (Canasa) potassium chloride 20 mEq 20 meq PO BID #60 tabs 05/0306/24/25 Rx tablet,extended release(part/cryst) Have you fallen in the past year?: No Central Venous Access Central Venous Access: Yes Port/PICC: Port CBC, CMP June 24, 2025 reviewed in EMR Exam Physical Exam Narrative ECOG 1 Const alert, oriented x3 and no apparent distress General Appearance: cooperative and comfortable Nutritional Appearance: overweight HEENT Face and Sinus: normal facial exam Mouth: oral and palatal mucosa normal Eyes General Eye: normal appearance of both eyes Neck no lymphadenopathy and no JVD Chest Chest: vascular access Resp clear to auscultation bilaterally Cardio regular rate and regular rhythm Jugular Venous Distention: Negative for JVD GI soft to palpation, non-tender and non-distended Back/Spine no thoracic nor lumbar tenderness Extremity no clubbing, cyanosis or edema Skin Rashes: no rashes Neuro oriented x3, CN's II-XII intact bilaterally, moves all extremities and no focal motor deficits Coordination / Balance: zukdta-tf-gxge test normal Speech: speech normal Gait (Neuro): normal gait Psych mental status grossly normal Coding Level of Care Code Off vis,est,level 4 Exam Problem Focused Diagnoses Malignant neoplasm of right breast in female, estrogen receptor positive, unspecified site of breast C50.911; Z17.0 Breast location: unspecified site of breast Estrogen receptor status: positive Regional lymph node metastasis present C77.9 Anemia D64.9 Iron deficiency anemia type: chronic blood loss Assessment and Plan Assessment and Plan (1) Cancer of right female breast: Status: Chronic Qualifiers: Breast location: unspecified site of breast Estrogen receptor status: positive Qualified Code(s): C50.911 - Malignant neoplasm of unspecified site ofright female breast; Z17.0 - Estrogen receptor positive status [ER+] (2) Regional lymph node metastasis present: Status: Chronic (3) Anemia: Status: Chronic Qualifiers: Iron deficiency anemia type: chronic blood loss Plan 69-year-old female with #1- Right breast cancer: Pathologic stage post neoadjuvant therapy II (T1c, N1, M0) invasive ductalcancer of the right breast. Tumor in the breast is ER positive (over 95%, strong) MS positive (64%,moderate to strong) and HER2 overexpressed 3+.Ki-67 is positive low less than 5%. Whereas that in the pathologically confident metastasis in the right axillary lymph node is ER positive, MS positive and HER2/krysta 2+. Genetic testing (at time of diagnosis was endometrium cancer) was done in 2022 and showed no known deleterious mutation. * Received neoadjuvant for 6 cycles of TCHP February?June. Main toxicity reported during neoadjuvant therapy was manageable grade 1 diarrhea and electrolyte disturbances (hypokalemia partly due to prior diuretic use hypophosphatemia and hypomagnesemia), bone marrow toxicity with severe transf usion requiring anemia. * Then underwent mastectomy with sentinel lymph node biopsy with residual cancer was found and minimal response to neoadjuvant therapy noted. * Started postoperative Kadcyla (Ado-trastuzumab) September 2024?June 2025. She also received adjuvant radiation therapy to the right breast and axilla September 2024. Imaging by CT scan of the chest abdomen and pelvis January 2025 shows some nonspecific right upper lobe changes possible inflammatory postradiation and a nonspecific 5.75 mm nodule in the right lower lobe. #2- History of endometrium cancer and incidental finding of retroperitoneal cystic mass the nature of which cannot be determined by imaging that included 2 CAT scans and MRI. Patient's past medical history is notable for history of endometrial cancer, stage II (T2, N0, M0) status post robotic total hysterectomy with bilateral salpingo-oophorectomy followed by adjuvant radiation therapy June - July 2023. On March 12, 2024 patient underwent cystoscopy, left retrograde pyelogram, left ureteroscopy with left ureteral stent insertion. April 08, [address]-guided biopsy of the mass no malignancy identified but necrotic tissue. June 2024 after the conclusion of neoadjuvant systemic therapy for breast cancer CT scan of the abdomen and pelvis reported a cystic lesion in the retroperitoneal that is decreasing in size. July [facility] oncology follow-up (Dr. Giles): Impression residual cystic lesion in the left periaortic area is most likely a benign lymphoid cyst with very mild residual hydronephrosis. Chronic comorbid conditions: Mitral valve prolapse, hypertension, nonspecific arthritis, history ofendometrial carcinoma status post total hysterectomy with bilateral salpingo-oophorectomy followed by adjuvant radiation therapy in 2022. Plan: Based on NCCN guidelines and up-to-date review of management of early- stage invasive ductal cancer of the breast with intent to cure: 1. Conclude systemic therapy with chemo- immune conjugate therapy with Kadcyla (ado- trastuzumab) for 14 cycles. Adjuvant hormonal therapy will be prescribed after upcoming restaging of disease. 2. She completed adjuvant radiation therapy to the right breast. 3. Regarding the endometrium cancer the patient will continue to be followed by [facility] and urology. The ureteric stent was removed July 2024, and since then abdominal pain and hematuria improved. 4. Anemia-multifactorial including anemia of cancer and chemotherapy, no evidence for residual ironand B12 deficiency. 5. Elective imaging at the end of her adjuvant systemic therapy plus as clinically indicated. 6. Echocardiography monitoring of cardiac ejection fraction every 3 months; remains normal at 60% April 2025. She is being followed at the cardio oncology clinic as well. 7. Rectal bleeding, proctitis under the care of GI, Dr. Peres. Patient was seen with her family. Impression and plan discussed. Em Torres MD Chief Dispatcher, [facility] Divisions of Medical Oncology & Hematology Department of Internal Medicine [place] [address] This note was generated using a voice recognition system software. Although it was reviewed by the author prior to finalization, it may still contain incorrect words, spelling, and punctuation that were not noted when reviewing prior to saving. If a clinically significant typo or inaccurately typedphrase is noted, please notify the author. Clinical Quality Measures Falls Risk Screening/Assistive Devices Have you fallen in the past year?: No 06/24/25 1107 lilibeth FULTON> Date _ Em Torres MD Cosigner Signature: Date (if applicable) CC: ~ [facility]09-04-2025 Progress note Author Em Torres [facility] Note Date/Time June 24, 2025 11:07am [facility] Cancer [address] [address] OFFICE VISIT Date of Service: 06/24/25 1029 MR#: [id number] Acct: [id number] Name: LYSSA VASQUEZ Rep #: [id number] : 1955 From: Em jara MD Age/Sex: 69/F Location: [facility] Status: Signed HPI Subjective Date of Service 06/24/25 Chief Complaint Breast cancer on treatment History of Present Illness 68-year-old female with: 1. Right breast cancer: She presented after a self palpated painless lump in the right breast. She has been compliant with annual screening mammography and that of January 2023 showed no suspicious abnormalities. Her family history is notable for a sister with endometrial cancer, brother withprostate cancer and father with colon cancer. In 2022 after the diagnosis of endometrial cancer she underwent a comprehensive genetic testing and no known deleterious mutation was detected. January 30, 2024 diagnostic mammogram: IMPRESSION: The palpable lump corresponds to 1.3 cm x 1.3 cm spiculated nodule in the slightly upper retroareolar region of the right breast. January 30, 2024 diagnostic ultrasound: IMPRESSION: 1.6 cm x 1.6 cm x 1.6 cm complex heterogeneous necrotic mass at the 10:00 position of the breast at 2 cm from nipple. February 11, 2024 Right breast mass, 10 o?clock, 2.0cm, core biopsy: Invasive ductal carcinoma. See cancer summary in comment section. JOSUE/ 02/13/2024 COMMENT INVASIVE BREAST CANCER SUMMARY: Procedure: Needle core biopsy Specimen Laterality: Right Tumor site: 10 o?clock, 2.0cm Histologic type: Invasive ductal carcinoma Provisional Histologic grade (Portia Grade): Tubule Differentiation Score: 2 Nuclear Pleomorphism Score: 2 Mitotic Rate Score: 1 Overall grade: 1 (score of 5) Tumor Size (greatest dimension): 0.9cm in greatest length Ductal Carcinoma Insitu: Present, focal Architectural Pattern: Cribriform Nuclear Grade: 2 (intermediate) Necrosis: Not identified Angiolymphatic Invasion: not identified. Microcalcifications: Not identified Additional Findings: Immunohistochemistry ([id number]) supports the above diagnosis. ER: positive (>95%, strong intensity) MS: positive (64%, moderate to strong intensity) Her-2 krysta: positive (3+) March 17, 2024 Right axillary lymph node, core biopsy: Metastatic carcinoma consistent with breast primary. RESULTS: ANTIBODY / CLONE RESULT P53 (DO-7) positive, wild type pattern Ki-67 (30-9) positive, 25% CK8 (38qmowY17) positive CK5-6 (D5 & 1684) negative Calponin-1 (VB563A) negative P40 (BC28) negative E-Cad (ECH-6) positive MOC-31 (4561) positive, dim MORPHOMETRIC ANALYSIS ER (clone 6F11) >95% MS (clone 16/1E2) >95% Her-2Neu (clone CB11) 2+ IN SITU HYBRIDIZATION (DERREK) FOR HER2 Interpretation: Not Amplified 2. A cystic mass in the retroperitoneum incidentally found on imaging in February 2024: Patient's past medical history is notable for history of endometrial cancer, stage II (T2, N0, M0) status post robotic total hysterectomy with bilateral salpingo-oophorectomy followed by adjuvant radiation therapy June - July2023. March 06, 2024 CT abdomen and pelvis: IMPRESSION: Moderate left hydronephrosis and ureteral dilatation to the mid ureter where there is a focal dilatation of the ureter with a decompressed distal ureter and no obstructing stone. Significant stranding of the perinephric fat and clinical correlation is recommended to exclude pyelonephrosis.. March 10, 2024 CT abdomen and pelvis with and without contrast: IMPRESSION: Originally thought to be part of the dilated left ureter is a cystic mass projecting between the left common iliac artery and the psoas muscle measuring 4.2 x 2.7 x 2.7 cm which is likely responsible for obstructing the left ureter at this level. The fluid density measures simple fluid on Hounsfield units. This could represent a necrotic lymph node or retroperitoneal fibrosis with pseudocyst formation or desmoid reaction due to sequela from radiation therapy March 12, 2024 cystoscopy, left retrograde pyelogram, left ureteroscopy with left ureteral stent insertion. March 27, 2024 abdomen MRI: IMPRESSION: Cystic lesion within the retroperitoneum which may represent urinoma, lymphocele/lymphangioma, cystic mesothelioma or neoplasm. April 08, 2024 CT-guided biopsy of abdominal mass: Retroperitoneal mass, CT guided core biopsy: Fat necrosis and fibrosis. Skeletal muscle tissue with reactive and focal degenerative change. No evidence of malignancy July 17, 2024 CT abdomen and pelvis: IMPRESSION: 1. Decreasing size of the cystic lesion of the retroperitoneum. 2. Interval decompression of the left hydronephrosis and hydroureter with placement of a double-J ureteral stent catheter. July 22, 2024 [facility] oncology follow-up (Dr. Giles): Impression residual cysticlesion in the left periaortic area is most likely a benign lymphoid cyst with very mild residual hydronephrosis. August 11, 2024: Right breast mastectomy with sentinel lymph node biopsy: FROZEN SECTION DIAGNOSIS A. Right axillary sentinel lymph node, biopsy: One out of three lymph nodes, positive for macrometastatic carcinoma. AM.mr 08/11/2024 MICROSCOPIC DIAGNOSIS A. Right axillary sentinel lymph node, biopsy: One out of three lymph nodes, positive for macrometastatic carcinoma. See comment. B. Right breast, mastectomy: Invasive ductal carcinoma. See cancer summary in the comment section. C. Right axillary lymph node, regional dissection: Fifteen out of fifteen lymph nodes, negative for metastatic carcinoma. See comment. SJ.mr 08/14/2024 COMMENT A. The largest metastatic focus of measures 0.8 x 0.3cm. Extranodal extension isnot seen. The lymph nodes are negative for metastatic carcinoma on multiple H & E levels and immunohistochemical stains for cytokeratins ([id number], BLOCK A1). C. Immunohistochemistry ([id number]) supports the above diagnosis. (A1 to A3) B. BREAST CANCER SUMMARY Procedure - Mastectomy Specimen laterality - Right Invasive tumor: Tumor site ? 10o?clock, 2cm from nipple, as per clinical information Tumor size ? 1.5 x 1.2 x 1.0 cm Histologic type ? Invasive ductal carcinoma, not otherwise specified Histologic grade (Portia grade): Glandular/tubular differentiation score - 2 Nuclear pleomorphism score - 2 Mitotic count score - 1 Overall grade - grade 1 (score of 5) Tumor focality ? Single focus of invasive carcinoma Ductal carcinoma in situ - Present Negative for extensive intraductal component (EIC). Size (extent) of DCIS ? Ductal carcinoma in situ consists of <5% of the total tumor involved Number of blocks with DCIS - 1 Number of blocks examined - 12 Architectural pattern - Cribriform Nuclear grade - grade 2 (intermediate) Necrosis ? Not identified Lobular carcinoma in situ ? Not identified Tumor extension: Skin ? Present and not involved Nipple ? Ductal carcinoma does not involve nipple epidermis Skeletal muscle ? Skeletal muscle is not present Margins: Margins are free of invasive ductal carcinoma and ductal carcinoma in situ are 4.5cm away from the closest posterior margin Regional lymph nodes: Number of lymph nodes examined - 18 Number of sentinel lymph nodes examined - 3 Number of lymph nodes with macrometastases - 1 Number of lymph nodes with micrometastases or isolated tumor cells - 0 Size of largest metastatic deposits ? 0.8 x 0.3cm (measured microscopically) Extranodal extension ? Not identified Distal metastases- Not applicable Treatment effect ? In the breast- Minimal response to presurgical therapy in the invasive carcinoma, In the lymph node- No definite response to presurgical therapy in the metastaticcarcinoma. Lymph vascular invasion ? Not identified Dermal lymph vascular invasion ? Not identified Ancillary Studies: Previously performed on same tumor ([id number] / [id number]) ER: positive (>95%, strong intensity) MS: positive (64%, moderate to strong intensity) Vnt3qqn: positive (3+) Microcalcifications ? Present in the invasive carcinoma and non-neoplastic tissue PATHOLOGIC STAGE: pT1c (y) pN1a pMx February 12, 2025 CT chest: Lungs and Airways: Increased linear markings with areas of confluence in the anterior aspect of the right upper lobe suggestive of post radiation fibrosis/pneumonitis. The changes extend into the anterior aspect of the right middle lobe. There is a 5.75 mm nodule in the anterior aspect of the right lower lobe as seen on axial image number 83 this most likely represents focal area of scarring. February 12, 2025 CT abdomen and pelvis: IMPRESSION: Further decrease in size with almost complete resolution of the previously seen left retroperitoneal soft tissue density. Stable left hydronephrosis and left hydroureter. Circumferential wall thickening of the rectum. Treatment summary and response: * Neoadjuvant TCHP: March 19, 2024-July 02, 2024 (6 cycles). * Mastectomy with sentinel lymph node biopsy August 11, 2024. * Kadcyla (Ado- trastuzumab) September 2024?June 2025 (14 cycles) * Adjuvant radiation therapy to right breast and axilla September 2024. 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 Blood in urine Rectal bleeding Diarrhea due to drug Prerenal azotemia Dysuria Anemia due to chronic blood loss Gastric reflux Acid reflux Edema of both lower legs Mass in the abdomen Hypomagnesemia Diarrhea Encounter for chemotherapy management Abnormal CT of the abdomen Port-A-Cath in place Anxiety Bladder disease History of diverticulitis History of echocardiogram Cancer of right female breast Encounter for education Wears hearing aid Wears glasses Wears contact lenses Post-menopausal Cancer Back pain Migraine headache Non-smoker History of edema History of stress test Cardiology follow-up encounter Hx of vaginal delivery Mitral valve prolapse Chronic headaches Back problem Anemia Arthritis Hypertension Surgical History History of lymph node dissection of right axilla S/P right mastectomy History of renal stent Hx of cystoscopy Hx of surgical procedure Status post total hysterectomy and bilateral salpingo-oophorectomy S/P cystoscopy Hx of right breast biopsy Hx of colonoscopy History of orthopedic surgery History of excision of pilonidal cyst Family History Mother Diabetes Hypertension Osteoarthritis Colon cancer Grandfather Heart disease Sister Lupus Fibromyalgia Sister , December 2022 from post op PE Endometrial cancer Father Cancer prostate. Social History (Reviewed 06/24/25 @ 10:45 by Daxa Sher Smoking Status: Never smoker alcohol intake: never substance use type: does not use caffeine: Yes what type of physical activity do you participate in: walking frequency: 3-4 times per week seatbelt use: always do you feel safe at home: Yes additional social history: -Dony ROS Constitutional Constitutional: Reports systems reviewed and no addt'l complaints, except as documented, fatigue and other Details: Able to do ADL at own. ; Denies fever(s) or weight loss Eyes Eyes: Reports systems reviewed and no addt'l complaints, except as documented ENT HEENT: Reports systems reviewed and no addt'l complaints, except as documented; Denies mouth lesions Cardiovascular Cardiovascular: Reports systems reviewed and no addt'l complaints, except as documented; Denies chest pain with activity or edema Respiratory/Chest Respiratory/Chest: Reports systems reviewed and no addt'l complaints, except as documented; Denies cough or dyspnea on exertion Gastrointestinal Gastrointestinal: Reports systems reviewed and no addt'l complaints, except as documented, hematochezia and other Details: Rectal bleeding is less on treatmentfor proctitis ; Denies diarrhea, melena or nausea Genitourinary Genitourinary: Reports systems reviewed and no addt'l complaints, except as documented; Denies hematuria Musculoskeletal Musculoskeletal: Reports systems reviewed and no addt'l complaints, except as documented; Denies back pain Integumentary Integumentary: Reports systems reviewed and no addt'l complaints, except as documented; Denies new lesions Neurologic Neurologic: Reports systems reviewed and no addt'l complaints, except as documented and paresthesias RLE and LLE; Denies focal weakness or weakness Psychiatric Psychiatric: Reports systems reviewed and no addt'l complaints, except as documented Endocrine Endocrinology: Reports systems reviewed and no addt'l complaints, except as documented Hematologic/Lymphatic Hematologic/Lymphatic: Reports systems reviewed and no addt'l complaints, exceptas documented Allergic/Immunologic Allergic/Immunologic: Reports systems reviewed and no addt'l complaints, except as documented Intake Vital Signs 06/03/25 11:14 06/24/25 09:36 06/24/25 10:29 06/24/25 10:32 Height 5 ft 6 in 5 ft 6 in 5 ft 6 in Weight: 75.296 kg 75.296 kg BMI 26.8 BP 158/79 H Blood Pressure Location Lt brachial Position Sitting Respiration 18 Pulse 84 Pulse Source Monitor Temp 98.4 F Temperature Source Temporal Artery Pulse Oximetry (%) 96 Oxygen Delivery Method room air Intake Is patient in pain?: No Allergies No Known Allergies Allergy (Verified 06/24/25 10:45) Medications ?Medication ?Instructions ?Recorded ?Confirmed ?Type vibegron 75 mg tablet (Gemtesa) 75 mg PO DAILY 3 06/24/25 History acetaminophen 500 mg tablet 500 mg PO Q6H PRN pain 06/24/25 History (Tylenol Extra Strength) ondansetron 8 mg disintegrating 8 mg PO Q8H PRN nausea and 08/17/24 06/24/25 Rx tablet vomiting #20 tabs lisinopril 40 mg tablet 40 mg PO DAILY #90 tabs 02/05/1406/24/25 Rx magnesium oxide 400 mg PO TID #90 caps 03/1006/24/25 Rx mesalamine 1,000 mg rectal 1 g MS QHS 90 days #90 ea 0 03/17/25 06/24/25 Rx suppository (Canasa) potassium chloride 20 mEq 20 meq PO BID #60 tabs 05/0306/24/25 Rx tablet,extended release(part/cryst) Have you fallen in the past year?: No Central Venous Access Central Venous Access: Yes Port/PICC: Port CBC, CMP June 24, 2025 reviewed in EMR Exam Physical Exam Narrative ECOG 1 Const alert, oriented x3 and no apparent distress General Appearance: cooperative and comfortable Nutritional Appearance: overweight HEENT Face and Sinus: normal facial exam Mouth: oral and palatal mucosa normal Eyes General Eye: normal appearance of both eyes Neck no lymphadenopathy and no JVD Chest Chest: vascular access Resp clear to auscultation bilaterally Cardio regular rate and regular rhythm Jugular Venous Distention: Negative for JVD GI soft to palpation, non-tender and non-distended Back/Spine no thoracic nor lumbar tenderness Extremity no clubbing, cyanosis or edema Skin Rashes: no rashes Neuro oriented x3, CN's II-XII intact bilaterally, moves all extremities and no focal motor deficits Coordination / Balance: fwqofd-he-xedo test normal Speech: speech normal Gait (Neuro): normal gait Psych mental status grossly normal Coding Level of Care Code Off vis,est,level 4 Exam Problem Focused Diagnoses Malignant neoplasm of right breast in female, estrogen receptor positive, unspecified site of breast C50.911; Z17.0 Breast location: unspecified site of breast Estrogen receptor status: positive Regional lymph node metastasis present C77.9 Anemia D64.9 Iron deficiency anemia type: chronic blood loss Assessment and Plan Assessment and Plan (1) Cancer of right female breast: Status: Chronic Qualifiers: Breast location: unspecified site of breast Estrogen receptor status: positive Qualified Code(s): C50.911 - Malignant neoplasm of unspecified site ofright female breast; Z17.0 - Estrogen receptor positive status [ER+] (2) Regional lymph node metastasis present: Status: Chronic (3) Anemia: Status: Chronic Qualifiers: Iron deficiency anemia type: chronic blood loss Plan 69-year-old female with #1- Right breast cancer: Pathologic stage post neoadjuvant therapy II (T1c, N1, M0) 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 Tumor in the breast is ER positive (over 95%, strong) MS positive (64%, moderate to strong) and HER2 overexpressed 3+.Ki- 67 is positive low less than 5%. Whereas that in the pathologically confident metastasis in the right axillary lymph node is ER positive, MS positive and HER2/krysta 2+. Genetic testing (at time of diagnosis was endometrium cancer) was done in 2022 and showed no known deleterious mutation. * Received neoadjuvant for 6 cycles of TCHP February?June. Main toxicity reported during neoadjuvant therapy was manageable grade 1 diarrhea and electrolyte disturbances (hypokalemia partly due to prior diuretic use hypophosphatemia and hypomagnesemia), bone marrow toxicity with severe transfusion requiring anemia. * Then underwent mastectomy with sentinel lymph node biopsy with residual cancer was found and minimal response to neoadjuvant therapy noted. * Started postoperative Kadcyla (Ado-trastuzumab) September 2024?June 2025. She also received adjuvant radiation therapy to the right breast and axilla September 2024. Imaging by CT scan of the chest abdomen and pelvis January 2025 shows some nonspecific right upper lobe changes possible inflammatory postradiation and a nonspecific 5.75 mm nodule in the right lower lobe. #2- History of endometrium cancer and incidental finding of retroperitoneal cystic mass the nature of which cannot be determined by imaging that included 2 CAT scans and MRI. Patient's past medical history is notable for history of endometrial cancer, stage II (T2, N0, M0) status post robotic total hysterectomy with bilateral salpingo-oophorectomy followed by adjuvant radiation therapy June - July 2023. On March 12, 2024 patient underwent cystoscopy, left retrograde pyelogram, left ureteroscopy with left ureteral stent insertion. April 08, [address]-guided biopsy of the mass no malignancy identified but necrotic tissue. June 2024 after the conclusion of neoadjuvant systemic therapy for breast cancer CT scan of the abdomen and pelvis reported a cystic lesion in the retroperitoneal that is decreasing in size. July [facility] oncology follow-up (Dr. Giles): Impression residual cystic lesion in the left periaortic area is most likely a benign lymphoid cyst with very mild residual hydronephrosis. Chronic comorbid conditions: Mitral valve prolapse, hypertension, nonspecific arthritis, history of endometrial carcinoma status post total hysterectomy with bilateral salpingo-oophorectomy followed by adjuvant radiation therapy in 2022. Plan: Based on NCCN guidelines and up-to-date review of management of early- stage invasive ductal cancer of the breast with intent to cure: 1. Conclude systemic therapy with chemo- immune conjugate therapy with Kadcyla (ado- trastuzumab) for 14 cycles. Adjuvant hormonal therapy will be prescribed after upcoming restaging of disease. 2. She completed adjuvant radiation therapy to the right breast. 3. Regarding the endometrium cancer the patient will continue to be followed by [facility] and urology. The ureteric stent was removed July 2024, and since then abdominal pain and hematuria improved. 4. Anemia-multifactorial including anemia of cancer and chemotherapy, no evidence for residual iron and B12 deficiency. 5. Elective imaging at the end of her adjuvant systemic therapy plus as clinically indicated. 6. Echocardiography monitoring of cardiac ejection fraction every 3 months; remains normal at 60% April 2025. She is being followed at the cardio oncology clinic as well. 7. Rectal bleeding, proctitis under the care of GI, Dr. Peres. Patient was seen with her family. Impression and plan discussed. Em Torres MD Chief Dispatcher, [facility] Divisions of Medical Oncology & Hematology Department of Internal Medicine [place] [phone] This note was generated using a voice recognition system software. Although it was reviewed by the author prior to finalization, it may still contain incorrect words, spelling, and punctuation that were not noted when reviewing prior to saving. If a clinically significant typo or inaccurately typed phrase is noted, please notify the author. Clinical Quality Measures Falls Risk Screening/Assistive Devices Have you fallen in the past year?: No 06/24/25 1107 <Electronically signed by Em mcelroy MD> Date _ [facility] Signature: Date (if applicable) CC: ~ [place] [employer] Work Phone: [phone] Progress [facility] Cancer [address] [address] OFFICE VISIT Date of Service: 06/03/25 110 MR#: [id number] Acct: [id number] Name: LYSSA VASQUEZ Rep #: [id number] : 1955 From: Em jara MD Age/Sex: 69/F [place] [facility] [place]: Signed HPI Subjective Date of Service 06/03/25 Chief Complaint Breast cancer on treatment History of Present Illness 68-year-old female with: 1. Right breast cancer: She presented after a self palpated painless lump in the right breast. She has been compliant with annual screening mammography and that of January 2023 showed no suspicious abnormalities. Her family history is notable for a sister with endometrial cancer, brother withprostate cancer andfather with colon cancer. In 2022 after the diagnosis of endometrial cancer she underwent a comprehensive genetic testing andno known deleterious mutation was detected. January 30, 2024 diagnostic mammogram: IMPRESSION: The palpable lump corresponds to 1.3 cm x 1.3 cm spiculated nodule in the slightly upper retroareolar region of the right breast. January 30, 2024 diagnostic ultrasound: IMPRESSION: 1.6 cm x 1.6 cm x 1.6 cm complex heterogeneous necrotic mass at the 10:00 position of the breast at 2 cm from nipple. February 11, 2024 Right breast mass, 10 o?clock, 2.0cm, core biopsy: Invasive ductal carcinoma. See cancer summary in comment section. JOSUE/ 02/13/2024 COMMENT INVASIVE BREAST CANCER SUMMARY: Procedure: Needle core biopsy Specimen Laterality: Right Tumor site: 10 o?clock, 2.0cm Histologic type: Invasive ductal carcinoma Provisional Histologic grade (Alix Grade): Tubule Differentiation Score: 2 Nuclear Pleomorphism Score: 2 Mitotic Rate Score: 1 Overall grade: 1 (score of 5) Tumor Size (greatest dimension): 0.9cm in greatest length Ductal Carcinoma Insitu: Present, focal Architectural Pattern: Cribriform Nuclear Grade: 2 (intermediate) Necrosis: Not identified Angiolymphatic Invasion: not identified. Microcalcifications: Not identified Additional Findings: Immunohistochemistry ([id number]) supports the above diagnosis. ER: positive (>95%, strong intensity) MS: positive (64%, moderate to strong intensity) Her-2 krysta: positive (3+) March 17, 2024 Right axillary lymph node, core biopsy: Metastatic carcinoma consistent with breast primary. RESULTS: ANTIBODY / CLONE RESULT P53 (DO-7) positive, wild type pattern Ki-67 (30-9) positive, 25% CK8 ([id number]) positive CK5-6 (D5 & 1684) negative Calponin-1 (AD278S) negative P40 (BC28) negative E-Cad (ECH-6) positive MOC-31 (4561) positive, dim MORPHOMETRIC ANALYSIS ER (clone 6F11) >95% MS (clone 16/1E2) >95% Her-2Neu (clone CB11) 2+ IN SITU HYBRIDIZATION (DERREK) FOR HER2 Interpretation: Not Amplified 2. A cystic mass in the retroperitoneum incidentally found on imaging in February 2024: Patient's past medical history is notable for history of endometrial cancer, stage II (T2, N0, M0) status post robotic total hysterectomy with bilateral salpingo-oophorectomy followed by adjuvant radiation therapy June - July2023. March 06, 2024 CT abdomen and pelvis: IMPRESSION: Moderate left hydronephrosis and ureteral dilatation to the mid ureter where there is a focal dilatation of the ureter with a decompressed distal ureter and no obstructing stone. Significant stranding of the perinephric fat and clinical correlation is recommended to exclude pyelonephrosis.. March 10, 2024 CT abdomen and pelvis with and without contrast: IMPRESSION: Originally thought to be part of the dilated left ureter is a cystic mass projecting between the left common iliac artery and the psoas muscle measuring 4.2 x 2.7 x 2.7 cm which is likely responsible for obstructing the left ureter at this level. The fluid density measures simple fluid on Hounsfield units. This could represent a necrotic lymph node or retroperitoneal fibrosis with pseudocyst formation or desmoid reaction due to sequela from radiation therapy March 12, 2024 cystoscopy, left retrograde pyelogram, left ureteroscopy with left ureteral stent insertion. March 27, 2024 abdomen MRI: IMPRESSION: Cystic lesion within the retroperitoneum which may represent urinoma, lymphocele/lymphangioma, cystic mesothelioma or neoplasm. April 08, 2024 CT-guided biopsy of abdominal mass: Retroperitoneal mass, CT guided core biopsy: Fat necrosis and fibrosis. Skeletal muscle tissue with reactive and focal degenerative change. No evidence of malignancy July 17, 2024 CT abdomen and pelvis: IMPRESSION: 1. Decreasing size of the cystic lesion of the retroperitoneum. 2. Interval decompression of the left hydronephrosis and hydroureter with placement of a double-J ureteral stent catheter. July 22, 2024 [facility] oncology follow-up (Dr. Giles): Impression residual cysticlesion in the left periaortic area is most likely a benign lymphoid cyst with very mild residual hydronephrosis. August 11, 2024: Right breast mastectomy with sentinel lymph node biopsy: FROZEN SECTION DIAGNOSIS A. Right axillary sentinel lymph node, biopsy: One out of three lymph nodes, positive for macrometastatic carcinoma. AM.mr 08/11/2024 MICROSCOPIC DIAGNOSIS A. Right axillary sentinel lymph node, biopsy: One out of three lymph nodes, positive for macrometastatic carcinoma. See comment. B. Right breast, mastectomy: Invasive ductal carcinoma. See cancer summary in the comment section. C. Right axillary lymph node, regional dissection: Fifteen out of fifteen lymph nodes, negative for metastatic carcinoma. See comment. SJ.mr 08/14/2024 COMMENT A. The largest metastatic focus of measures 0.8 x 0.3cm. Extranodal extension isnot seen. The lymph nodes are negative for metastatic carcinoma on multiple H & E levels and immunohistochemical stains for cytokeratins ([id number], BLOCK A1). C. Immunohistochemistry ([id number]) supports the above diagnosis. (A1 to A3) B. BREAST CANCER SUMMARY Procedure - Mastectomy Specimen laterality - Right Invasive tumor: Tumor site ? 10o?clock, 2cm from nipple, as per clinical information Tumor size ? 1.5 x 1.2 x 1.0 cm Histologic type ? Invasive ductal carcinoma, not otherwise specified Histologic grade (Alix grade): Glandular/tubular differentiation score - 2 Nuclear pleomorphism score - 2 Mitotic count score - 1 Overall grade - grade 1 (score of 5) Tumor focality ? Single focus of invasive carcinoma Ductal carcinoma in situ - Present Negative for extensive intraductal component (EIC). Size (extent) of DCIS ? Ductal carcinoma in situ consists of <5% of the total tumor involved Number of blocks with DCIS - 1 Number of blocks examined - 12 Architectural pattern - Cribriform Nuclear grade - grade 2 (intermediate) Necrosis ? Not identified Lobular carcinoma in situ ? Not identified Tumor extension: Skin ? Present and not involved Nipple ? Ductal carcinoma does not involve nipple epidermis Skeletal muscle ? Skeletal muscle is not present Margins: Margins are free of invasive ductal carcinoma and ductal carcinoma in situ are 4.5cm away from the closest posterior margin Regional lymph nodes: Number of lymph nodes examined - 18 Number of sentinel lymph nodes examined - 3 Number of lymph nodes with macrometastases - 1 Number of lymph nodes with micrometastases or isolated tumor cells - 0 Size of largest metastatic deposits ? 0.8 x 0.3cm (measured microscopically) Extranodal extension ? Not identified Distal metastases- Not applicable Treatment effect ? In the breast- Minimal response to presurgical therapy in the invasive carcinoma, In the lymph node- No definite response to presurgical therapy in the metastaticcarcinoma. Lymph vascular invasion ? Not identified Dermal lymph vascular invasion ? Not identified Ancillary Studies: Previously performed on same tumor ([id number] / [id number]) ER: positive (>95%, strong intensity) MS: positive (64%, moderate to strong intensity) Nyu8xfb: positive (3+) Microcalcifications ? Present in the invasive carcinoma and non-neoplastic tissue PATHOLOGIC STAGE: pT1c (y) pN1a pMx February 12, 2025 CT chest: Lungs and Airways: Increased linear markings with areas of confluence in the anterior aspect of theright upper lobe suggestive of post radiation fibrosis/pneumonitis. The changes extend into the anterior aspect of the right middle lobe. There is a 5.75 mm nodule in the anterior aspect of the right lower lobe as seen on axial image number 83 this most likely represents focal area of scarring. February 12, 2025 CT abdomen and pelvis: IMPRESSION: Further decrease in size with almost complete resolution of the previously seen left retroperitoneal soft tissue density. Stable left hydronephrosis and left hydroureter. Circumferential wall thickening of the rectum. Treatment summary and response: * Neoadjuvant TCHP: March 19, 2024-July 02, 2024 (6 cycles). * Mastectomy with sentinel lymph node biopsy August 11, 2024. * Kadcyla (Ado- trastuzumab) to September 2024 * Adjuvant radiation therapy to right breast and axilla September 2024. 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 Blood in urine Rectal bleeding Diarrhea due to drug Prerenal azotemia Dysuria Anemia due to chronic blood loss Gastric reflux Acid reflux Edema of both lower legs Mass in the abdomen Hypomagnesemia Diarrhea Encounter for chemotherapy management Abnormal CT of the abdomen Port-A-Cath in place Anxiety Bladder disease History of diverticulitis History of echocardiogram Cancer of right female breast Encounter for education Wears hearing aid Wears glasses Wears contact lenses Post-menopausal Cancer Back pain Migraine headache Non-smoker History of edema History of stress test Cardiology follow-up encounter Hx of vaginal delivery Mitral valve prolapse Chronic headaches Back problem Anemia Arthritis Hypertension Surgical History History of lymph node dissection of right axilla S/P right mastectomy History of renal stent Hx of cystoscopy Hx of surgical procedure Status post total hysterectomy and bilateral salpingo-oophorectomy S/P cystoscopy Hx of right breast biopsy Hx of colonoscopy History of orthopedic surgery History of excision of pilonidal cyst Family History Mother Diabetes Hypertension Osteoarthritis Colon cancer Grandfather Heart disease Sister Lupus Fibromyalgia Sister , December 2022 from post op PE Endometrial cancer Father Cancer prostate. Social History Smoking Status: Never smoker alcohol intake: never substance use type: does not use caffeine: Yes what type of physical activity do you participate in: walking frequency: 3-4 times per week seatbelt use: always do you feel safe at home: Yes additional social history: -Dony ROS Constitutional Constitutional: Reports systems reviewed and no addt'l complaints, except as documented, fatigue and other Details: Able to do ADL at own. ; Denies fever(s) or weight loss Eyes Eyes: Reports systems reviewed and no addt'l complaints, except as documented ENT HEENT: Reports systems reviewed and no addt'l complaints, except as documented; Denies mouth lesions Cardiovascular Cardiovascular: Reports systems reviewed and no addt'l complaints, except as documented; Denies chest pain with activity or edema Respiratory/Chest Respiratory/Chest: Reports systems reviewed and no addt'l complaints, except as documented; Denies cough or dyspnea on exertion Gastrointestinal Gastrointestinal: Reports systems reviewed and no addt'l complaints, except as documented, hematochezia and other Details: Rectal bleeding is less on treatmentfor proctitis ; Denies diarrhea, melena or nausea Genitourinary Genitourinary: Reports systems reviewed and no addt'l complaints, except as documented; Denies hematuria Musculoskeletal Musculoskeletal: Reports systems reviewed and no addt'l complaints, except as documented; Denies back pain Integumentary Integumentary: Reports systems reviewed and no addt'l complaints, except as documented; Denies new lesions Neurologic Neurologic: Reports systems reviewed and no addt'l complaints, except as documented and paresthesias RLE and LLE; Denies focal weakness or weakness Psychiatric Psychiatric: Reports systems reviewed and no addt'l complaints, except as documented Endocrine Endocrinology: Reports systems reviewed and no addt'l complaints, except as documented Hematologic/Lymphatic Hematologic/Lymphatic: Reports systems reviewed and no addt'l complaints, exceptas documented Allergic/Immunologic Allergic/Immunologic: Reports systems reviewed and no addt'l complaints, except as documented Intake Vital Signs 04/22/25 11:07 06/03/25 11:04 06/03/25 11:14 Height 5 ft 6 in 5 ft 6 in 5 ft 6 in Weight: 72.745 kg BMI 25.9 BP 154/80 H Blood Pressure Location Lt brachial Position Sitting Respiration 18 Pulse 79 Pulse Source Monitor Temp 98.1 F Temperature Source Temporal Artery Pulse Oximetry (%) 97 Oxygen Delivery Method room air Intake Is patient in pain?: No Allergies No Known Allergies Allergy (Verified 06/03/25 11:14) Medications ?Medication ?Instructions ?Recorded ?Confirmed ?Type vibegron 75 mg tablet (Gemtesa) 75 mg PO DAILY 3 06/03/25 History acetaminophen 500 mg tablet 500 mg PO Q6H PRN pain 06/03/25 History (Tylenol Extra Strength) ondansetron 8 mg disintegrating 8 mg PO Q8H PRN nausea and 08/17/24 06/03/25 Rx tablet vomiting #20 tabs lisinopril 40 mg tablet 40 mg PO DAILY #90 tabs 02/0 05/1406/03/25 Rx magnesium oxide 400 mg PO TID #90 caps 03/1006/03/25 Rx mesalamine 1,000 mg rectal 1 g MS QHS 90 days #90 ea 0 03/17/25 06/03/25 Rx suppository (Canasa) potassium chloride 20 mEq 20 meq PO BID #60 tabs 05/0306/03/25 Rx tablet,extended release(part/cryst) Have you fallen in the past year?: No Central Venous Access Central Venous Access: Yes Port/PICC: Port CBC, CMP June 03, 2025 reviewed in EMR Exam Physical Exam Narrative ECOG 1 Const alert, oriented x3 and no apparent distress General Appearance: cooperative and comfortable Nutritional Appearance: overweight HEENT Face and Sinus: normal facial exam Mouth: oral and palatal mucosa normal Eyes General Eye: normal appearance of both eyes Neck no lymphadenopathy and no JVD Chest Chest: vascular access Resp clear to auscultation bilaterally Cardio regular rate and regular rhythm Jugular Venous Distention: Negative for JVD GI soft to palpation, non-tender and non-distended Back/Spine no thoracic nor lumbar tenderness Extremity no clubbing, cyanosis or edema Skin Rashes: no rashes Neuro oriented x3, CN's II-XII intact bilaterally, moves all extremities and no focal motor deficits Coordination / Balance: osiniq-cv-[id number] test normal Speech: speech normal Gait (Neuro): normal gait Psych mental status grossly normal Coding Level of Care Code Off vis,est,level 4 Exam Problem Focused Diagnoses Malignant neoplasm of right breast in female, estrogen receptor positive, unspecified site of breast C50.911; Z17.0 Breast location: unspecified site of breast Estrogen receptor status: positive Regional lymph node metastasis present C77.9 Anemia D64.9 Iron deficiency anemia type: chronic blood loss Assessment and Plan Assessment and Plan (1) Cancer of right female breast: Status: Chronic Qualifiers: Breast location: unspecified site of breast Estrogen receptor status: positive Qualified Code(s): C50.911 - Malignant neoplasm of unspecified site ofright female breast; Z17.0 - Estrogen receptor positive status [ER+] (2) Regional lymph node metastasis present: Status: Chronic (3) Anemia: Status: Chronic Qualifiers: Iron deficiency anemia type: chronic blood loss Plan 69-year-old female with #1- Right breast cancer: Pathologic stage post neoadjuvant therapy II (T1c, N1, M0) invasive ductalcancer of the right breast. Tumor in the breast is ER positive (over 95%, strong) MS positive (64%,moderate to strong) and HER2 overexpressed 3+.Ki-67 is positive low less than 5%. Whereas that in the pathologically confident metastasis in the right axillary lymph node is ER positive, MS positive and HER2/krysta 2+. Genetic testing (at time of diagnosis was endometrium cancer) was done in 2022 and showed no known deleterious mutation. * Received neoadjuvant for 6 cycles of TCHP February?June. Main toxicity reported during neoadjuvant therapy was manageable grade 1 diarrhea and electrolyte disturbances (hypokalemia partly due to prior diuretic use hypophosphatemia and hypomagnesemia), bone marrow toxicity with severe transf usion requiring anemia. * Then underwent mastectomy with sentinel lymph node biopsy with residual cancer was found and minimal response to neoadjuvant therapy noted. * Started postoperative Kadcyla (Ado-trastuzumab) September 2024. She also received adjuvant radiation therapy to the right breast and axilla September 2024. Imaging by CT scan of the chest abdomen and pelvis January 2025 shows some nonspecific right upper lobe changes possible inflammatory postradiation and a nonspecific 5.75 mm nodule in the right lower lobe. #2- History of endometrium cancer and incidental finding of retroperitoneal cystic mass the nature of which cannot be determined by imaging that included 2 CAT scans and MRI. Patient's past medical history is notable for history of endometrial cancer, stage II (T2, N0, M0) status post robotic total hysterectomy with bilateral salpingo-oophorectomy followed by adjuvant radiation therapy June - July 2023. On March 12, 2024 patient underwent cystoscopy, left retrograde pyelogram, left ureteroscopy with left ureteral stent insertion. April 08, [address]-guided biopsy of the mass no malignancy identified but necrotic tissue. June 2024 after the conclusion of neoadjuvant systemic therapy for breast cancer CT scan of the abdomen and pelvis reported a cystic lesion in the retroperitoneal that is decreasing in size. July [facility] oncology follow-up (Dr. Giles): Impression residual cystic lesion in the left periaortic area is most likely a benign lymphoid cyst with very mild residual hydronephrosis. Chronic comorbid conditions: Mitral valve prolapse, hypertension, nonspecific arthritis, history ofendometrial carcinoma status post total hysterectomy with bilateral salpingo-oophorectomy followed by adjuvant radiation therapy in 2022. Plan: Based on NCCN guidelines and up-to-date review of management of early- stage invasive ductal cancer of the breast with intent to cure: 1. Continue systemic therapy with chemo- immune conjugate therapy with Kadcyla (ado- trastuzumab) for 14 cycles. 2. She completed adjuvant radiation therapy to the right breast. 3. Regarding the endometrium cancer the patient will continue to be followed by [facility] and urology. The ureteric stent was removed July 2024, and since then abdominal pain and hematuria improved. 4. Anemia-multifactorial including anemia of cancer and chemotherapy, no evidence for residual ironand B12 deficiency. 5. Elective imaging will be tentatively at the end of her adjuvant systemic therapy plus as clinically indicated. 6. Echocardiography monitoring of cardiac ejection fraction every 3 months; remains normal at 60% April 2025. She is being followed at the cardio oncology clinic as well. 7. Rectal bleeding, proctitis under the care of GI, Dr. Peres. Patient was seen with her family. Impression and plan discussed. Em Torres MD Chief Dispatcher, [facility] Divisions of Medical Oncology & Hematology Department of Internal Medicine [place] [phone] This note was generated using a voice recognition system software. Although it was reviewed by the author prior to finalization, it may still contain incorrect words, spelling, and punctuation that were not noted when reviewing prior to saving. If a clinically significant typo or inaccurately typedphrase is noted, please notify the author. Clinical Quality Measures Falls Risk Screening/Assistive Devices Have you fallen in the past year?: No 06/03/25 1142 lilibeth FULTON> Date _ Em Torres MD Cosigner Signature: Date (if applicable) CC: ~ [facility]08-14-2025 Progress note Author Em Torres [facility] Note Date/Time June 03, 2025 11 :41am [facility] Cancer [address] [address] OFFICE VISIT Date of Service: 06/03/25 1103 MR#: [id number] Acct: [id number] Name: LYSSA VASQUEZ Rep #: [id number] : 1955 From: Em jara MD Age/Sex: 69/F Location: [facility] [place] Status: Signed HPI Subjective Date of Service 06/03/25 Chief Complaint Breast cancer on treatment History of Present Illness 68-year-old female with: 1. Right breast cancer: She presented after a self palpated painless lump in the right breast. She has been compliant with annual screening mammography and that of January 2023 showed no suspicious abnormalities. Her family history is notable for a sister with endometrial cancer, brother withprostate cancer and father with colon cancer. In 2022 after the diagnosis of endometrial cancer she underwent a comprehensive genetic testing and no known deleterious mutation was detected. January 30, 2024 diagnostic mammogram: IMPRESSION: The palpable lump corresponds to 1.3 cm x 1.3 cm spiculated nodule in the slightly upper retroareolar region of the right breast. January 30, 2024 diagnostic ultrasound: IMPRESSION: 1.6 cm x 1.6 cm x 1.6 cm complex heterogeneous necrotic mass at the 10:00 position of the breast at 2 cm from nipple. February 11, 2024 Right breast mass, 10 o?clock, 2.0cm, core biopsy: Invasive ductal carcinoma. See cancer summary in comment section. JOSUE/ 02/13/2024 COMMENT INVASIVE BREAST CANCER SUMMARY: Procedure: Needle core biopsy Specimen Laterality: Right Tumor site: 10 o?clock, 2.0cm Histologic type: Invasive ductal carcinoma Provisional Histologic grade (Alix Grade): Tubule Differentiation Score: 2 Nuclear Pleomorphism Score: 2 Mitotic Rate Score: 1 Overall grade: 1 (score of 5) Tumor Size (greatest dimension): 0.9cm in greatest length Ductal Carcinoma Insitu: Present, focal Architectural Pattern: Cribriform Nuclear Grade: 2 (intermediate) Necrosis: Not identified Angiolymphatic Invasion: not identified. Microcalcifications: Not identified Additional Findings: Immunohistochemistry ([id number]) supports the above diagnosis. ER: positive (>95%, strong intensity) MS: positive (64%, moderate to strong intensity) Her-2 krysta: positive (3+) March 17, 2024 Right axillary lymph node, core biopsy: Metastatic carcinoma consistent with breast primary. RESULTS: ANTIBODY / CLONE RESULT P53 (DO-7) positive, wild type pattern Ki-67 (30-9) positive, 25% CK8 (78lhpnH07) positive CK5-6 (D5 & 1684) negative Calponin-1 (XV610Q) negative P40 (BC28) negative E-Cad (ECH-6) positive MOC-31 (4561) positive, dim MORPHOMETRIC ANALYSIS ER (clone 6F11) >95% MS (clone 16/1E2) >95% Her-2Neu (clone CB11) 2+ IN SITU HYBRIDIZATION (DERREK) FOR HER2 Interpretation: Not Amplified 2. A cystic mass in the retroperitoneum incidentally found on imaging in February 2024: Patient's past medical history is notable for history of endometrial cancer, stage II (T2, N0, M0) status post robotic total hysterectomy with bilateral salpingo-oophorectomy followed by adjuvant radiation therapy June - July2023. March 06, 2024 CT abdomen and pelvis: IMPRESSION: Moderate left hydronephrosis and ureteral dilatation to the mid ureter where there is a focal dilatation of the ureter with a decompressed distal ureter and no obstructing stone. Significant stranding of the perinephric fat and clinical correlation is recommended to exclude pyelonephrosis.. March 10, 2024 CT abdomen and pelvis with and without contrast: IMPRESSION: Originally thought to be part of the dilated left ureter is a cystic mass projecting between the left common iliac artery and the psoas muscle measuring 4.2 x 2.7 x 2.7 cm which is likely responsible for obstructing the left ureter at this level. The fluid density measures simple fluid on Hounsfield units. This could represent a necrotic lymph node or retroperitoneal fibrosis with pseudocyst formation or desmoid reaction due to sequela from radiation therapy March 12, 2024 cystoscopy, left retrograde pyelogram, left ureteroscopy with left ureteral stent insertion. March 27, 2024 abdomen MRI: IMPRESSION: Cystic lesion within the retroperitoneum which may represent urinoma, lymphocele/lymphangioma, cystic mesothelioma or neoplasm. April 08, 2024 CT-guided biopsy of abdominal mass: Retroperitoneal mass, CT guided core biopsy: Fat necrosis and fibrosis. Skeletal muscle tissue with reactive and focal degenerative change. No evidence of malignancy July 17, 2024 CT abdomen and pelvis: IMPRESSION: 1. Decreasing size of the cystic lesion of the retroperitoneum. 2. Interval decompression of the left hydronephrosis and hydroureter with placement of a double-J ureteral stent catheter. July 22, 2024 [facility] oncology follow-up (Dr. Giles): Impression residual cysticlesion in the left periaortic area is most likely a benign lymphoid cyst with very mild residual hydronephrosis. August 11, 2024: Right breast mastectomy with sentinel lymph node biopsy: FROZEN SECTION DIAGNOSIS A. Right axillary sentinel lymph node, biopsy: One out of three lymph nodes, positive for macrometastatic carcinoma. AM.mr 08/11/2024 MICROSCOPIC DIAGNOSIS A. Right axillary sentinel lymph node, biopsy: One out of three lymph nodes, positive for macrometastatic carcinoma. See comment. B. Right breast, mastectomy: Invasive ductal carcinoma. See cancer summary in the comment section. C. Right axillary lymph node, regional dissection: Fifteen out of fifteen lymph nodes, negative for metastatic carcinoma. See comment. SJ.mr 08/14/2024 COMMENT A. The largest metastatic focus of measures 0.8 x 0.3cm. Extranodal extension isnot seen. The lymph nodes are negative for metastatic carcinoma on multiple H & E levels and immunohistochemical stains for cytokeratins ([id number], BLOCK A1). C. Immunohistochemistry ([id number]) supports the above diagnosis. (A1 to A3) B. BREAST CANCER SUMMARY Procedure - Mastectomy Specimen laterality - Right Invasive tumor: Tumor site ? 10o?clock, 2cm from nipple, as per clinical information Tumor size ? 1.5 x 1.2 x 1.0 cm Histologic type ? Invasive ductal carcinoma, not otherwise specified Histologic grade (Portia grade): Glandular/tubular differentiation score - 2 Nuclear pleomorphism score - 2 Mitotic count score - 1 Overall grade - grade 1 (score of 5) Tumor focality ? Single focus of invasive carcinoma Ductal carcinoma in situ - Present Negative for extensive intraductal component (EIC). Size (extent) of DCIS ? Ductal carcinoma in situ consists of <5% of the total tumor involved Number of blocks with DCIS - 1 Number of blocks examined - 12 Architectural pattern - Cribriform Nuclear grade - grade 2 (intermediate) Necrosis ? Not identified Lobular carcinoma in situ ? Not identified Tumor extension: Skin ? Present and not involved Nipple ? Ductal carcinoma does not involve nipple epidermis Skeletal muscle ? Skeletal muscle is not present Margins: Margins are free of invasive ductal carcinoma and ductal carcinoma in situ are 4.5cm away from the closest posterior margin Regional lymph nodes: Number of lymph nodes examined - 18 Number of sentinel lymph nodes examined - 3 Number of lymph nodes with macrometastases - 1 Number of lymph nodes with micrometastases or isolated tumor cells - 0 Size of largest metastatic deposits ? 0.8 x 0.3cm (measured microscopically) Extranodal extension ? Not identified Distal metastases- Not applicable Treatment effect ? In the breast- Minimal response to presurgical therapy in the invasive carcinoma, In the lymph node- No definite response to presurgical therapy in the metastaticcarcinoma. Lymph vascular invasion ? Not identified Dermal lymph vascular invasion ? Not identified Ancillary Studies: Previously performed on same tumor ([id number] / [id number]) ER: positive (>95%, strong intensity) MS: positive (64%, moderate to strong intensity) Lwc2iiw: positive (3+) Microcalcifications ? Present in the invasive carcinoma and non-neoplastic tissue PATHOLOGIC STAGE: pT1c (y) pN1a pMx February 12, 2025 CT chest: Lungs and Airways: Increased linear markings with areas of confluence in the anterior aspect of the right upper lobe suggestive of post radiation fibrosis/pneumonitis. The changes extend into the anterior aspect of the right middle lobe. There is a 5.75 mm nodule in the anterior aspect of the right lower lobe as seen on axial image number 83 this most likely represents focal area of scarring. February 12, 2025 CT abdomen and pelvis: IMPRESSION: Further decrease in size with almost complete resolution of the previously seen left retroperitoneal soft tissue density. Stable left hydronephrosis and left hydroureter. Circumferential wall thickening of the rectum. Treatment summary and response: * Neoadjuvant TCHP: March 19, 2024-July 02, 2024 (6 cycles). * Mastectomy with sentinel lymph node biopsy August 11, 2024. * Kadcyla (Ado- trastuzumab) to September 2024 * Adjuvant radiation therapy to right breast and axilla September 2024. 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 Blood in urine Rectal bleeding Diarrhea due to drug Prerenal azotemia Dysuria Anemia due to chronic blood loss Gastric reflux Acid reflux Edema of both lower legs Mass in the abdomen Hypomagnesemia Diarrhea Encounter for chemotherapy management Abnormal CT of the abdomen Port-A-Cath in place Anxiety Bladder disease History of diverticulitis History of echocardiogram Cancer of right female breast Encounter for education Wears hearing aid Wears glasses Wears contact lenses Post-menopausal Cancer Back pain Migraine headache Non-smoker History of edema History of stress test Cardiology follow-up encounter Hx of vaginal delivery Mitral valve prolapse Chronic headaches Back problem Anemia Arthritis Hypertension Surgical History History of lymph node dissection of right axilla S/P right mastectomy History of renal stent Hx of cystoscopy Hx of surgical procedure Status post total hysterectomy and bilateral salpingo-oophorectomy S/P cystoscopy Hx of right breast biopsy Hx of colonoscopy History of orthopedic surgery History of excision of pilonidal cyst Family History Mother Diabetes Hypertension Osteoarthritis Colon cancer Grandfather Heart disease Sister Lupus Fibromyalgia Sister , December 2022 from post op PE Endometrial cancer Father Cancer prostate. Social History Smoking Status: Never smoker alcohol intake: never substance use type: does not use caffeine: Yes what type of physical activity do you participate in: walking frequency: 3-4 times per week seatbelt use: always do you feel safe at home: Yes additional social history: -Dony ROS Constitutional Constitutional: Reports systems reviewed and no addt'l complaints, except as documented, fatigue and other Details: Able to do ADL at own. ; Denies fever(s) or weight loss Eyes Eyes: Reports systems reviewed and no addt'l complaints, except as documented ENT HEENT: Reports systems reviewed and no addt'l complaints, except as documented; Denies mouth lesions Cardiovascular Cardiovascular: Reports systems reviewed and no addt'l complaints, except as documented; Denies chest pain with activity or edema Respiratory/Chest Respiratory/Chest: Reports systems reviewed and no addt'l complaints, except as documented; Denies cough or dyspnea on exertion Gastrointestinal Gastrointestinal: Reports systems reviewed and no addt'l complaints, except as documented, hematochezia and other Details: Rectal bleeding is less on treatmentfor proctitis ; Denies diarrhea, melena or nausea Genitourinary Genitourinary: Reports systems reviewed and no addt'l complaints, except as documented; Denies hematuria Musculoskeletal Musculoskeletal: Reports systems reviewed and no addt'l complaints, except as documented; Denies back pain Integumentary Integumentary: Reports systems reviewed and no addt'l complaints, except as documented; Denies new lesions Neurologic Neurologic: Reports systems reviewed and no addt'l complaints, except as documented and paresthesias RLE and LLE; Denies focal weakness or weakness Psychiatric Psychiatric: Reports systems reviewed and no addt'l complaints, except as documented Endocrine Endocrinology: Reports systems reviewed and no addt'l complaints, except as documented Hematologic/Lymphatic Hematologic/Lymphatic: Reports systems reviewed and no addt'l complaints, exceptas documented Allergic/Immunologic Allergic/Immunologic: Reports systems reviewed and no addt'l complaints, except as documented Intake Vital Signs 04/22/25 11:07 06/03/25 11:04 06/03/25 11:14 Height 5 ft 6 in 5 ft 6 in 5 ft 6 in Weight: 72.745 kg BMI 25.9 BP 154/80 H Blood Pressure Location Lt brachial Position Sitting Respiration 18 Pulse 79 Pulse Source Monitor Temp 98.1 F Temperature Source Temporal Artery Pulse Oximetry (%) 97 Oxygen Delivery Method room air Intake Is patient in pain?: No Allergies No Known Allergies Allergy (Verified 06/03/25 11:14) Medications ?Medication ?Instructions ?Recorded ?Confirmed ?Type vibegron 75 mg tablet (Gemtesa) 75 mg PO DAILY 3 06/03/25 History acetaminophen 500 mg tablet 500 mg PO Q6H PRN pain 06/03/25 History (Tylenol Extra Strength) ondansetron 8 mg disintegrating 8 mg PO Q8H PRN nausea and 08/17/24 06/03/25 Rx tablet vomiting #20 tabs lisinopril 40 mg tablet 40 mg PO DAILY #90 tabs 02/0 05/1406/03/25 Rx magnesium oxide 400 mg PO TID #90 caps 03/1006/03/25 Rx mesalamine 1,000 mg rectal 1 g MS QHS 90 days #90 ea 0 03/17/25 06/03/25 Rx suppository (Canasa) potassium chloride 20 mEq 20 meq PO BID #60 tabs 05/0306/03/25 Rx tablet,extended release(part/cryst) Have you fallen in the past year?: No Central Venous Access Central Venous Access: Yes Port/PICC: Port CBC, CMP June 03, 2025 reviewed in EMR Exam Physical Exam Narrative ECOG 1 Const alert, oriented x3 and no apparent distress General Appearance: cooperative and comfortable Nutritional Appearance: overweight HEENT Face and Sinus: normal facial exam Mouth: oral and palatal mucosa normal Eyes General Eye: normal appearance of both eyes Neck no lymphadenopathy and no JVD Chest Chest: vascular access Resp clear to auscultation bilaterally Cardio regular rate and regular rhythm Jugular Venous Distention: Negative for JVD GI soft to palpation, non-tender and non-distended Back/Spine no thoracic nor lumbar tenderness Extremity no clubbing, cyanosis or edema Skin Rashes: no rashes Neuro oriented x3, CN's II-XII intact bilaterally, moves all extremities and no focal motor deficits Coordination / Balance: [id number]-[id number] test normal Speech: speech normal Gait (Neuro): normal gait Psych mental status grossly normal Coding Level of Care Code Off vis,est,level 4 Exam Problem Focused Diagnoses Malignant neoplasm of right breast in female, estrogen receptor positive, unspecified site of breast C50.911; Z17.0 Breast location: unspecified site of breast Estrogen receptor status: positive Regional lymph node metastasis present C77.9 Anemia D64.9 Iron deficiency anemia type: chronic blood loss Assessment and Plan Assessment and Plan (1) Cancer of right female breast: Status: Chronic Qualifiers: Breast location: unspecified site of breast Estrogen receptor status: positive Qualified Code(s): C50.911 - Malignant neoplasm of unspecified site ofright female breast; Z17.0 - Estrogen receptor positive status [ER+] (2) Regional lymph node metastasis present: Status: Chronic (3) Anemia: Status: Chronic Qualifiers: Iron deficiency anemia type: chronic blood loss Plan 69-year-old female with #1- Right breast cancer: Pathologic stage post neoadjuvant therapy II (T1c, N1, M0) 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 Tumor in the breast is ER positive (over 95%, strong) MS positive (64%, moderate to strong) and HER2 overexpressed 3+.Ki- 67 is positive low less than 5%. Whereas that in the pathologically confident metastasis in the right axillary lymph node is ER positive, MS positive and HER2/krysta 2+. Genetic testing (at time of diagnosis was endometrium cancer) was done in 2022 and showed no known deleterious mutation. * Received neoadjuvant for 6 cycles of TCHP February?June. Main toxicity reported during neoadjuvant therapy was manageable grade 1 diarrhea and electrolyte disturbances (hypokalemia partly due to prior diuretic use hypophosphatemia and hypomagnesemia), bone marrow toxicity with severe transfusion requiring anemia. * Then underwent mastectomy with sentinel lymph node biopsy with residual cancer was found and minimal response to neoadjuvant therapy noted. * Started postoperative Kadcyla (Ado-trastuzumab) September 2024. She also received adjuvant radiation therapy to the right breast and axilla September 2024. Imaging by CT scan of the chest abdomen and pelvis January 2025 shows some nonspecific right upper lobe changes possible inflammatory postradiation and a nonspecific 5.75 mm nodule in the right lower lobe. #2- History of endometrium cancer and incidental finding of retroperitoneal cystic mass the nature of which cannot be determined by imaging that included 2 CAT scans and MRI. Patient's past medical history is notable for history of endometrial cancer, stage II (T2, N0, M0) status post robotic total hysterectomy with bilateral salpingo-oophorectomy followed by adjuvant radiation therapy June - July 2023. On March 12, 2024 patient underwent cystoscopy, left retrograde pyelogram, left ureteroscopy with left ureteral stent insertion. April 08, [address]-guided biopsy of the mass no malignancy identified but necrotic tissue. June 2024 after the conclusion of neoadjuvant systemic therapy for breast cancer CT scan of the abdomen and pelvis reported a cystic lesion in the retroperitoneal that is decreasing in size. July [facility] oncology follow-up (Dr. Giles): Impression residual cystic lesion in the left periaortic area is most likely a benign lymphoid cyst with very mild residual hydronephrosis. Chronic comorbid conditions: Mitral valve prolapse, hypertension, nonspecific arthritis, history of endometrial carcinoma status post total hysterectomy with bilateral salpingo-oophorectomy followed by adjuvant radiation therapy in 2022. Plan: Based on NCCN guidelines and up-to-date review of management of early- stage invasive ductal cancer of the breast with intent to cure: 1. Continue systemic therapy with chemo- immune conjugate therapy with Kadcyla (ado- trastuzumab) for 14 cycles. 2. She completed adjuvant radiation therapy to the right breast. 3. Regarding the endometrium cancer the patient will continue to be followed by [facility] and urology. The ureteric stent was removed July 2024, and since then abdominal pain and hematuria improved. 4. Anemia-multifactorial including anemia of cancer and chemotherapy, no evidence for residual iron and B12 deficiency. 5. Elective imaging will be tentatively at the end of her adjuvant systemic therapy plus as clinically indicated. 6. Echocardiography monitoring of cardiac ejection fraction every 3 months; remains normal at 60% April 2025. She is being followed at the cardio oncology clinic as well. 7. Rectal bleeding, proctitis under the care of GI, Dr. Peres. Patient was seen with her family. Impression and plan discussed. Em Torres MD Chief Dispatcher, [facility] Divisions of Medical Oncology & Hematology Department of Internal Medicine [place] [address] This note was generated using a voice recognition system software. Although it was reviewed by the author prior to finalization, it may still contain incorrect words, spelling, and punctuation that were not noted when reviewing prior to saving. If a clinically significant typo or inaccurately typed phrase is noted, please notify the author. Clinical Quality Measures Falls Risk Screening/Assistive Devices Have you fallen in the past year?: No 06/03/25 1142 <Electronically signed by Em mcelroy MD> Date _ Em Torres MD Cosigner Signature: Date (if applicable) CC: ~ [facility] Work Phone: 1(149) 267-497007-24-2025 Evaluation note* Diagnosis Onset Date Resolution Status Admit Date Anemia chronic May 13 10:05am Cancer of right female breast chroni c May 13, 2025 10:05am 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 May 13, 2025 10:05am Anemia chronic June 03 025 10:02am Cancer of right female breast chroni c June 03, 2025 10:02am 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 June 03 10:02am BRBPR (bright red blood per rectum) acute June 17 12:53pm Elevated liver enzymes acute Au 2024 12:53pm Breast cancer of upper-outer quadrant of right female breast acute June 24 025 9:22am [employer] of Gyne[employer] and Obstetric[employer] (FIGO) stage II malig acute June 24, 2025 9:22am Anemia chronic June 24, 2025 9:23am Cancer of right female breast chroni c June 24, 2025 9:23am 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 June 24 025 9:23am Breast cancer of upper-outer quadrant of right female breast acute July 26 1:39pm Status post hysterectomy acute July 26, 2025 1:39pm Uterine carcinoma acute July 26, 2025 1:39pm Breast cancer acute July 8:53am [employer] Gyne[employer] and [employer]stetric[employer] (FIGO) stage II malig acute July 302024 8:53am Hypertension chronic July 8:53am Anemia chronic August 05, 2025 2:05pm Cancer of right female breast chroni c August 05, 2025 2:05pm 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 August 05 2:05pm Anemia chronic August 10, 2025 3:31pm Cancer of right female breast chroni c August 10, 2025 3:31pm Regional lymph node metastas is present August 10 3:31pm Hypokalemia acute August 12, 2025 9:51am Hypomagnesemia acute August 122024 9:51am [facility] Work Phone: 1(288) 308-645007-03-2025 Evaluation note* Diagnosis Onset Date Resolution Status Admit Date Anemia chronic April 22, 2025 10:02am Cancer of right female breast chroni c April 22, 2025 10:02am Regional lymph node metastas is present April 22, 2025 1 0:02am Anemia chronic May 13 10:05am Cancer of right female breast chroni c May 13, 2025 10:05am Regional lymph node metastas is present May 13, 2025 10:05am Anemia chronic June 03, 2 025 10:02am Cancer of right female breast chroni c June 03, 2025 10:02am 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 June 03 10:02am BRBPR (bright red blood per rectum) acute June 17 12:53pm Elevated liver enzymes acute Au 2024 12:53pm Breast cancer of upper-outer quadrant of right female breast acute June 24, 2 025 9:22am [employer]ne[employer] and [employer]stetric[employer] (FIGO) stage II malig acute June 24, 2025 9:22am Anemia chronic June 24, 2025 9:23am Cancer of right female breast chroni c June 24, 2025 9:23am 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 June 24, 2 025 9:23am Breast cancer of upper-outer quadrant of right female breast acute July 26 1:39pm Status post hysterectomy acute July 26, 2025 1:39pm Uterine carcinoma acute July 26, 2025 1:39pm Breast cancer acute July 8:53am [employer]ne[employer]st[employer] (FIGO) stage II malig acute July 302024 8:53am Hypertension chronic July 8:53am Anemia chronic August 05, 2025 2:05pm Cancer of right female breast chroni c August 05, 2025 2:05pm 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 August 05 2:05pm Anemia chronic August 10, 2025 3:31pm Cancer of right female breast chroni c August 10, 2025 3:31pm 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 August 10 3:31pm Hypokalemia acute August 12, 2025 9:51am Hypomagnesemia acute August 122024 9:51am [facility] Work Phone: 1(866) 148-735607-03-2025 [facility] [address] [place] [id number] OFFICE VISIT Date of Service: 04/22/25 1103 MR#: [id number] Acct: [id number] Name: LYSSA VASQUEZ Rep #: [id number] : 1955 From: Em jara MD Age/Sex: 69/F Location: [email or web address] Status: Signed HPI Subjective Date of Service 04/22/25 Chief Complaint Breast cancer on treatment History of Present Illness 68-year-old female with: 1. Right breast cancer: She presented after a self palpated painless lump in the right breast. She has been compliant with annual screening mammography and that of January 2023 showed no suspicious abnormalities. Her family history is notable for a sister with endometrial cancer, brother withprostate cancer andfather with colon cancer. In 2022 after the diagnosis of endometrial cancer she underwent a comprehensive genetic testing andno known deleterious mutation was detected. January 30, 2024 diagnostic mammogram: IMPRESSION: The palpable lump corresponds to 1.3 cm x 1.3 cm spiculated nodule in the slightly upper retroareolar region of the right breast. January 30, 2024 diagnostic ultrasound: IMPRESSION: 1.6 cm x 1.6 cm x 1.6 cm complex heterogeneous necrotic mass at the 10:00 position of the breast at 2 cm from nipple. February 11, 2024 Right breast mass, 10 o?clock, 2.0cm, core biopsy: Invasive ductal carcinoma. See cancer summary in comment section. Fazal 02/13/2024 COMMENT INVASIVE BREAST CANCER SUMMARY: Procedure: Needle core biopsy Specimen Laterality: Right Tumor site: 10 o?clock, 2.0cm Histologic type: Invasive ductal carcinoma Provisional Histologic grade (Portia Grade): Tubule Differentiation Score: 2 Nuclear Pleomorphism Score: 2 Mitotic Rate Score: 1 Overall grade: 1 (score of 5) Tumor Size (greatest dimension): 0.9cm in greatest length Ductal Carcinoma Insitu: Present, focal Architectural Pattern: Cribriform Nuclear Grade: 2 (intermediate) Necrosis: Not identified Angiolymphatic Invasion: not identified. Microcalcifications: Not identified Additional Findings: Immunohistochemistry ([id number]) supports the above diagnosis. ER: positive (>95%, strong intensity) MS: positive (64%, moderate to strong intensity) Her-2 krysta: positive (3+) March 17, 2024 Right axillary lymph node, core biopsy: Metastatic carcinoma consistent with breast primary. RESULTS: ANTIBODY / CLONE RESULT P53 (DO-7) positive, wild type pattern Ki-67 (30-9) positive, 25% CK8 (78asudC52) positive CK5-6 (D5 & 1684) negative Calponin-1 (ZY675H) negative P40 (BC28) negative E-Cad (ECH-6) positive MOC-31 (4561) positive, dim MORPHOMETRIC ANALYSIS ER (clone 6F11) >95% MS (clone 16/1E2) >95% Her-2Neu (clone CB11) 2+ IN SITU HYBRIDIZATION (DERREK) FOR HER2 Interpretation: Not Amplified 2. A cystic mass in the retroperitoneum incidentally found on imaging in February 2024: Patient's past medical history is notable for history of endometrial cancer, stage II (T2, N0, M0) status post robotic total hysterectomy with bilateral salpingo-oophorectomy followed by adjuvant radiation therapy June - July2023. March 06, 2024 CT abdomen and pelvis: IMPRESSION: Moderate left hydronephrosis and ureteral dilatation to the mid ureter where there is a focal dilatation of the ureter with a decompressed distal ureter and no obstructing stone. Significant stranding of the perinephric fat and clinical correlation is recommended to exclude pyelonephrosis.. March 10, 2024 CT abdomen and pelvis with and without contrast: IMPRESSION: Originally thought to be part of the dilated left ureter is a cystic mass projecting between the left common iliac artery and the psoas muscle measuring 4.2 x 2.7 x 2.7 cm which is likely responsible for obstructing the left ureter at this level. The fluid density measures simple fluid on Hounsfield units. This could represent a necrotic lymph node or retroperitoneal fibrosis with pseudocyst formation or desmoid reaction due to sequela from radiation therapy March 12, 2024 cystoscopy, left retrograde pyelogram, left ureteroscopy with left ureteral stent insertion. March 27, 2024 abdomen MRI: IMPRESSION: Cystic lesion within the retroperitoneum which may represent urinoma, lymphocele/lymphangioma, cystic mesothelioma or neoplasm. April 08, 2024 CT-guided biopsy of abdominal mass: Retroperitoneal mass, CT guided core biopsy: Fat necrosis and fibrosis. Skeletal muscle tissue with reactive and focal degenerative change. No evidence of malignancy July 17, 2024 CT abdomen and pelvis: IMPRESSION: 1. Decreasing size of the cystic lesion of the retroperitoneum. 2. Interval decompression of the left hydronephrosis and hydroureter with placement of a double-J ureteral stent catheter. July 22, 2024 [facility] oncology follow-up (Dr. Giles): Impression residual cysticlesion in the left periaortic area is most likely a benign lymphoid cyst with very mild residual hydronephrosis. August 11, 2024: Right breast mastectomy with sentinel lymph node biopsy: FROZEN SECTION DIAGNOSIS A. Right axillary sentinel lymph node, biopsy: One out of three lymph nodes, positive for macrometastatic carcinoma. AM.mr 08/11/2024 MICROSCOPIC DIAGNOSIS A. Right axillary sentinel lymph node, biopsy: One out of three lymph nodes, positive for macrometastatic carcinoma. See comment. B. Right breast, mastectomy: Invasive ductal carcinoma. See cancer summary in the comment section. C. Right axillary lymph node, regional dissection: Fifteen out of fifteen lymph nodes, negative for metastatic carcinoma. See comment. SJ.mr 08/14/2024 COMMENT A. The largest metastatic focus of measures 0.8 x 0.3cm. Extranodal extension isnot seen. The lymph nodes are negative for metastatic carcinoma on multiple H & E levels and immunohistochemical stains for cytokeratins ([id number], BLOCK A1). C. Immunohistochemistry ([id number]) supports the above diagnosis. (A1 to A3) B. BREAST CANCER SUMMARY Procedure - Mastectomy Specimen laterality - Right Invasive tumor: Tumor site ? 10o?clock, 2cm from nipple, as per clinical information Tumor size ? 1.5 x 1.2 x 1.0 cm Histologic type ? Invasive ductal carcinoma, not otherwise specified Histologic grade (Alix grade): Glandular/tubular differentiation score - 2 Nuclear pleomorphism score - 2 Mitotic count score - 1 Overall grade - grade 1 (score of 5) Tumor focality ? Single focus of invasive carcinoma Ductal carcinoma in situ - Present Negative for extensive intraductal component (EIC). Size (extent) of DCIS ? Ductal carcinoma in situ consists of <5% of the total tumor involved Number of blocks with DCIS - 1 Number of blocks examined - 12 Architectural pattern - Cribriform Nuclear grade - grade 2 (intermediate) Necrosis ? Not identified Lobular carcinoma in situ ? Not identified Tumor extension: Skin ? Present and not involved Nipple ? Ductal carcinoma does not involve nipple epidermis Skeletal muscle ? Skeletal muscle is not present Margins: Margins are free of invasive ductal carcinoma and ductal carcinoma in situ are 4.5cm away from the closest posterior margin Regional lymph nodes: Number of lymph nodes examined - 18 Number of sentinel lymph nodes examined - 3 Number of lymph nodes with macrometastases - 1 Number of lymph nodes with micrometastases or isolated tumor cells - 0 Size of largest metastatic deposits ? 0.8 x 0.3cm (measured microscopically) Extranodal extension ? Not identified Distal metastases- Not applicable Treatment effect ? In the breast- Minimal response to presurgical therapy in the invasive carcinoma, In the lymph node- No definite response to presurgical therapy in the metastaticcarcinoma. Lymph vascular invasion ? Not identified Dermal lymph vascular invasion ? Not identified Ancillary Studies: Previously performed on same tumor ([id number] / [id number]) ER: positive (>95%, strong intensity) MS: positive (64%, moderate to strong intensity) Hdh0eng: positive (3+) Microcalcifications ? Present in the invasive carcinoma and non-neoplastic tissue PATHOLOGIC STAGE: pT1c (y) pN1a pMx February 12, 2025 CT chest: Lungs and Airways: Increased linear markings with areas of confluence in the anterior aspect of theright upper lobe suggestive of post radiation fibrosis/pneumonitis. The changes extend into the anterior aspect of the right middle lobe. There is a 5.75 mm nodule in the anterior aspect of the right lower lobe as seen on axial image number 83 this most likely represents focal area of scarring. February 12, 2025 CT abdomen and pelvis: IMPRESSION: Further decrease in size with almost complete resolution of the previously seen left retroperitoneal soft tissue density. Stable left hydronephrosis and left hydroureter. Circumferential wall thickening of the rectum. Treatment summary and response: * Neoadjuvant TCHP: March 19, 2024-July 02, 2024 (6 cycles). * Mastectomy with sentinel lymph node biopsy August 11, 2024. * Kadcyla (Ado- trastuzumab) to September 2024 * Adjuvant radiation therapy to right breast and axilla September 2024. 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 Blood in urine Rectal bleeding Diarrhea due to drug Prerenal azotemia Dysuria Anemia due to chronic blood loss Gastric reflux Acid reflux Edema of both lower legs Mass in the abdomen Hypomagnesemia Diarrhea Encounter for chemotherapy management Abnormal CT of the abdomen Port-A-Cath in place Anxiety Bladder disease History of diverticulitis History of echocardiogram Cancer of right female breast Encounter for education Wears hearing aid Wears glasses Wears contact lenses Post-menopausal Cancer Back pain Migraine headache Non-smoker History of edema History of stress test Cardiology follow-up encounter Hx of vaginal delivery Mitral valve prolapse Chronic headaches Back problem Anemia Arthritis Hypertension Surgical History History of lymph node dissection of right axilla S/P right mastectomy History of renal stent Hx of cystoscopy Hx of surgical procedure Status post total hysterectomy and bilateral salpingo-oophorectomy S/P cystoscopy Hx of right breast biopsy Hx of colonoscopy History of orthopedic surgery History of excision of pilonidal cyst Family History Mother Diabetes Hypertension Osteoarthritis Colon cancer Grandfather Heart disease Sister Lupus Fibromyalgia Sister , December 2022 from post op PE Endometrial cancer Father Cancer prostate. Social History Smoking Status: Never smoker alcohol intake: never substance use type: does not use caffeine: Yes what type of physical activity do you participate in: walking frequency: 3-4 times per week seatbelt use: always do you feel safe at home: Yes additional social history: -Dony ROS Constitutional Constitutional: Reports systems reviewed and no addt'l complaints, except as documented, fatigue and other Details: Able to do ADL at own. ; Denies fever(s) or weight loss Eyes Eyes: Reports systems reviewed and no addt'l complaints, except as documented ENT HEENT: Reports systems reviewed and no addt'l complaints, except as documented; Denies mouth lesions Cardiovascular Cardiovascular: Reports systems reviewed and no addt'l complaints, except as documented; Denies chest pain with activity or edema Respiratory/Chest Respiratory/Chest: Reports systems reviewed and no addt'l complaints, except as documented; Denies cough or dyspnea on exertion Gastrointestinal Gastrointestinal: Reports systems reviewed and no addt'l complaints, except as documented and hematochezia; Denies diarrhea, melena or nausea Genitourinary Genitourinary: Reports systems reviewed and no addt'l complaints, except as documented; Denies hematuria Musculoskeletal Musculoskeletal: Reports systems reviewed and no addt'l complaints, except as documented; Denies back pain Integumentary Integumentary: Reports systems reviewed and no addt'l complaints, except as documented; Denies new lesions Neurologic Neurologic: Reports systems reviewed and no addt'l complaints, except as documented and paresthesias RLE and LLE; Denies focal weakness or weakness Psychiatric Psychiatric: Reports systems reviewed and no addt'l complaints, except as documented Endocrine Endocrinology: Reports systems reviewed and no addt'l complaints, except as documented Hematologic/Lymphatic Hematologic/Lymphatic: Reports systems reviewed and no addt'l complaints, exceptas documented Allergic/Immunologic Allergic/Immunologic: Reports systems reviewed and no addt'l complaints, except as documented Intake Vital Signs 01/28/25 09:40 04/22/25 11:05 04/22/25 11:07 Height 5 ft 6 in 5 ft 6 in 5 ft 6 in Weight: 75.013 kg BMI 26.6 BP 162/89 H Blood Pressure Location Lt brachial Position Sitting Respiration 16 Pulse 73 Pulse Source Monitor Temp 97.9 F Temperature Source Temporal Artery Pulse Oximetry (%) 96 Oxygen Delivery Method room air Intake Is patient in pain?: No Allergies No Known Allergies Allergy (Verified 04/22/25 11:06) Medications ?Medication ?Instructions ?Recorded ?Confirmed ?Type vibegron 75 mg tablet (Gemtesa) 75 mg PO DAILY 3 04/22/25 History acetaminophen 500 mg tablet 500 mg PO Q6H PRN pain 04/22/25 History (Tylenol Extra Strength) ondansetron 8 mg disintegrating 8 mg PO Q8H PRN nausea and 08/17/24 04/22/25 Rx tablet vomiting #20 tabs lisinopril 40 mg tablet 40 mg PO DAILY #90 tabs 02/0 05/1404/22/25 Rx magnesium oxide 400 mg PO TID #90 caps 03/1004/22/25 Rx potassium chloride 20 mEq 20 meq PO BID #60 tabs 03/1104/22/25 Rx tablet,extended release(part/cryst) mesalamine 1,000 mg rectal 1 g MS QHS 90 days #90 ea 0 03/17/25 04/22/25 Rx suppository (Canasa) Have you fallen in the past year?: No Central Venous Access Central Venous Access: Yes Port/PICC: Port CBC, CMP April 26, 2025 reviewed in EMR Exam Physical Exam Narrative ECOG 1 Const alert, oriented x3 and no apparent distress General Appearance: cooperative and comfortable Nutritional Appearance: overweight HEENT Face and Sinus: normal facial exam Mouth: oral and palatal mucosa normal Eyes General Eye: normal appearance of both eyes Neck no lymphadenopathy and no JVD Chest Chest: vascular access Resp clear to auscultation bilaterally Cardio regular rate and regular rhythm Jugular Venous Distention: Negative for JVD GI soft to palpation, non-tender and non-distended Back/Spine no thoracic nor lumbar tenderness Extremity no clubbing, cyanosis or edema Skin Rashes: no rashes Neuro oriented x3, CN's II-XII intact bilaterally, moves all extremities and no focal motor deficits Coordination / Balance: hyhylg-aa-jric test normal Speech: speech normal Gait (Neuro): normal gait Psych mental status grossly normal Coding Level of Care Code Off vis,est,level 4 Exam Problem Focused Diagnoses Malignant neoplasm of right breast in female, estrogen receptor positive, unspecified site of breast C50.911; Z17.0 Breast location: unspecified site of breast Estrogen receptor status: positive Regional lymph node metastasis present C77.9 Anemia D64.9 Iron deficiency anemia type: chronic blood loss Assessment and Plan Assessment and Plan (1) Cancer of right female breast: Status: Chronic Qualifiers: Breast location: unspecified site of breast Estrogen receptor status: positive Qualified Code(s): C50.911 - Malignant neoplasm of unspecified site ofright female breast; Z17.0 - Estrogen receptor positive status [ER+] (2) Regional lymph node metastasis present: Status: Chronic (3) Anemia: Status: Chronic Qualifiers: Iron deficiency anemia type: chronic blood loss Plan 69-year-old female with #1- Right breast cancer: Pathologic stage post neoadjuvant therapy II (T1c, N1, M0) invasive ductalcancer of the right breast. Tumor in the breast is ER positive (over 95%, strong) MS positive (64%,moderate to strong) and HER2 overexpressed 3+.Ki-67 is positive low less than 5%. Whereas that in the pathologically confident metastasis in the right axillary lymph node is ER positive, MS positive and HER2/krysta 2+. Genetic testing (at time of diagnosis was endometrium cancer) was done in 2022 and showed no known deleterious mutation. * Received neoadjuvant for 6 cycles of TCHP February?June. Main toxicity reported during neoadjuvant therapy was manageable grade 1 diarrhea and electrolyte disturbances (hypokalemia partly due to prior diuretic use hypophosphatemia and hypomagnesemia), bone marrow toxicity with severe transf usion requiring anemia. * Then underwent mastectomy with sentinel lymph node biopsy with residual cancer was found and minimal response to neoadjuvant therapy noted. * Started postoperative Kadcyla (Ado-trastuzumab) September 2024. She also received adjuvant radiation therapy to the right breast and axilla September 2024. Imaging by CT scan of the chest abdomen and pelvis January 2025 shows some nonspecific right upper lobe changes possible inflammatory postradiation and a nonspecific 5.75 mm nodule in the right lower lobe. #2- History of endometrium cancer and incidental finding of retroperitoneal cystic mass the nature of which cannot be determined by imaging that included 2 CAT scans and MRI. Patient's past medical history is notable for history of endometrial cancer, stage II (T2, N0, M0) status post robotic total hysterectomy with bilateral salpingo-oophorectomy followed by adjuvant radiation therapy June - July 2023. On March 12, 2024 patient underwent cystoscopy, left retrograde pyelogram, left ureteroscopy with left ureteral stent insertion. April 08, [address]-guided biopsy of the mass no malignancy identified but necrotic tissue. June 2024 after the conclusion of neoadjuvant systemic therapy for breast cancer CT scan of the abdomen and pelvis reported a cystic lesion in the retroperitoneal that is decreasing in size. July [facility] oncology follow-up (Dr. Giles): Impression residual cystic lesion in the left periaortic area is most likely a benign lymphoid cyst with very mild residual hydronephrosis. Chronic comorbid conditions: Mitral valve prolapse, hypertension, nonspecific arthritis, history ofendometrial carcinoma status post total hysterectomy with bilateral salpingo-oophorectomy followed by adjuvant radiation therapy in 2022. Plan: Based on NCCN guidelines and up-to-date review of management of early- stage invasive ductal cancer of the breast with intent to cure: 1. Continue systemic therapy with chemo- immune conjugate therapy with Kadcyla (ado- trastuzumab) for 14 cycles. 2. She completed adjuvant radiation therapy to the right breast. 3. Regarding the endometrium cancer the patient will continue to be followed by [facility] and urology. The ureteric stent was removed July 2024, and since then abdominal pain and hematuria improved. 4. Anemia-multifactorial including anemia of cancer and chemotherapy, no evidence for residual ironand B12 deficiency. 5. Elective imaging will be tentatively at the end of her adjuvant systemic therapy plus as clinically indicated. 6. Echocardiography monitoring of cardiac ejection fraction every 3 months; January 2025 remains normal at 60%, next will be due end of April 2025. She is being followed at the cardio oncology clinic aswell. 7. Rectal bleeding, proctitis under the care of GI, Dr. Peres. Patient was seen with her family. Impression and plan discussed. Em Torres MD Chief Dispatcher, [facility] Divisions of Medical Oncology & Hematology Department of Internal Medicine [place] [address] This note was generated using a voice recognition system software. Although it was reviewed by the author prior to finalization, it may still contain incorrect words, spelling, and punctuation that were not noted when reviewing prior to saving. If a clinically significant typo or inaccurately typedphrase is noted, please notify the author. Clinical Quality Measures Falls Risk Screening/Assistive Devices Have you fallen in the past year?: No 04/22/25 1138 lilibeth FULTON> Date _ Em Torres MD Cosigner Signature: Date (if applicable) CC: ~ [facility]07-03-2025 Progress note Author Em Torres [facility] Note Date/Time April 22, 2025 11:38 am [facility] [address] [address] OFFICE VISIT Date of Service: 04/22/25 1103 MR#: [id number] Acct: [id number] Name: LYSSA VASQUEZ Rep #: [id number] : 1955 From: Em jara MD Age/Sex: 69/F Location: [email or web address] Status: Signed HPI Subjective Date of Service 04/22/25 Chief Complaint Breast cancer on treatment History of Present Illness 68-year-old female with: 1. Right breast cancer: She presented after a self palpated painless lump in the right breast. She has been compliant with annual screening mammography and that of January 2023 showed no suspicious abnormalities. Her family history is notable for a sister with endometrial cancer, brother withprostate cancer and father with colon cancer. In 2022 after the diagnosis of endometrial cancer she underwent a comprehensive genetic testing and no known deleterious mutation was detected. January 30, 2024 diagnostic mammogram: IMPRESSION: The palpable lump corresponds to 1.3 cm x 1.3 cm spiculated nodule in the slightly upper retroareolar region of the right breast. January 30, 2024 diagnostic ultrasound: IMPRESSION: 1.6 cm x 1.6 cm x 1.6 cm complex heterogeneous necrotic mass at the 10:00 position of the breast at 2 cm from nipple. February 11, 2024 Right breast mass, 10 o?clock, 2.0cm, core biopsy: Invasive ductal carcinoma. See cancer summary in comment section. JOSUE/ 02/13/2024 COMMENT INVASIVE BREAST CANCER SUMMARY: Procedure: Needle core biopsy Specimen Laterality: Right Tumor site: 10 o?clock, 2.0cm Histologic type: Invasive ductal carcinoma Provisional Histologic grade (Alix Grade): Tubule Differentiation Score: 2 Nuclear Pleomorphism Score: 2 Mitotic Rate Score: 1 Overall grade: 1 (score of 5) Tumor Size (greatest dimension): 0.9cm in greatest length Ductal Carcinoma Insitu: Present, focal Architectural Pattern: Cribriform Nuclear Grade: 2 (intermediate) Necrosis: Not identified Angiolymphatic Invasion: not identified. Microcalcifications: Not identified Additional Findings: Immunohistochemistry ([id number]) supports the above diagnosis. ER: positive (>95%, strong intensity) MS: positive (64%, moderate to strong intensity) Her-2 krysta: positive (3+) March 17, 2024 Right axillary lymph node, core biopsy: Metastatic carcinoma consistent with breast primary. RESULTS: ANTIBODY / CLONE RESULT P53 (DO-7) positive, wild type pattern Ki-67 (30-9) positive, 25% CK8 (03kaocS01) positive CK5-6 (D5 & 1684) negative Calponin-1 (RH604P) negative P40 (BC28) negative E-Cad (ECH-6) positive MOC-31 (4561) positive, dim MORPHOMETRIC ANALYSIS ER (clone 6F11) >95% MS (clone 16/1E2) >95% Her-2Neu (clone CB11) 2+ IN SITU HYBRIDIZATION (DERREK) FOR HER2 Interpretation: Not Amplified 2. A cystic mass in the retroperitoneum incidentally found on imaging in February 2024: Patient's past medical history is notable for history of endometrial cancer, stage II (T2, N0, M0) status post robotic total hysterectomy with bilateral salpingo-oophorectomy followed by adjuvant radiation therapy June - July2023. March 06, 2024 CT abdomen and pelvis: IMPRESSION: Moderate left hydronephrosis and ureteral dilatation to the mid ureter where there is a focal dilatation of the ureter with a decompressed distal ureter and no obstructing stone. Significant stranding of the perinephric fat and clinical correlation is recommended to exclude pyelonephrosis.. March 10, 2024 CT abdomen and pelvis with and without contrast: IMPRESSION: Originally thought to be part of the dilated left ureter is a cystic mass projecting between the left common iliac artery and the psoas muscle measuring 4.2 x 2.7 x 2.7 cm which is likely responsible for obstructing the left ureter at this level. The fluid density measures simple fluid on Hounsfield units. This could represent a necrotic lymph node or retroperitoneal fibrosis with pseudocyst formation or desmoid reaction due to sequela from radiation therapy March 12, 2024 cystoscopy, left retrograde pyelogram, left ureteroscopy with left ureteral stent insertion. March 27, 2024 abdomen MRI: IMPRESSION: Cystic lesion within the retroperitoneum which may represent urinoma, lymphocele/lymphangioma, cystic mesothelioma or neoplasm. April 08, 2024 CT-guided biopsy of abdominal mass: Retroperitoneal mass, CT guided core biopsy: Fat necrosis and fibrosis. Skeletal muscle tissue with reactive and focal degenerative change. No evidence of malignancy July 17, 2024 CT abdomen and pelvis: IMPRESSION: 1. Decreasing size of the cystic lesion of the retroperitoneum. 2. Interval decompression of the left hydronephrosis and hydroureter with placement of a double-J ureteral stent catheter. July 22, 2024 [facility] oncology follow-up (Dr. Giles): Impression residual cysticlesion in the left periaortic area is most likely a benign lymphoid cyst with very mild residual hydronephrosis. August 11, 2024: Right breast mastectomy with sentinel lymph node biopsy: FROZEN SECTION DIAGNOSIS A. Right axillary sentinel lymph node, biopsy: One out of three lymph nodes, positive for macrometastatic carcinoma. AM.mr 08/11/2024 MICROSCOPIC DIAGNOSIS A. Right axillary sentinel lymph node, biopsy: One out of three lymph nodes, positive for macrometastatic carcinoma. See comment. B. Right breast, mastectomy: Invasive ductal carcinoma. See cancer summary in the comment section. C. Right axillary lymph node, regional dissection: Fifteen out of fifteen lymph nodes, negative for metastatic carcinoma. See comment. SJ.mr 08/14/2024 COMMENT A. The largest metastatic focus of measures 0.8 x 0.3cm. Extranodal extension isnot seen. The lymph nodes are negative for metastatic carcinoma on multiple H & E levels and immunohistochemical stains for cytokeratins ([id number], BLOCK A1). C. Immunohistochemistry ([id number]) supports the above diagnosis. (A1 to A3) B. BREAST CANCER SUMMARY Procedure - Mastectomy Specimen laterality - Right Invasive tumor: Tumor site ? 10o?clock, 2cm from nipple, as per clinical information Tumor size ? 1.5 x 1.2 x 1.0 cm Histologic type ? Invasive ductal carcinoma, not otherwise specified Histologic grade (Portia grade): Glandular/tubular differentiation score - 2 Nuclear pleomorphism score - 2 Mitotic count score - 1 Overall grade - grade 1 (score of 5) Tumor focality ? Single focus of invasive carcinoma Ductal carcinoma in situ - Present Negative for extensive intraductal component (EIC). Size (extent) of DCIS ? Ductal carcinoma in situ consists of <5% of the total tumor involved Number of blocks with DCIS - 1 Number of blocks examined - 12 Architectural pattern - Cribriform Nuclear grade - grade 2 (intermediate) Necrosis ? Not identified Lobular carcinoma in situ ? Not identified Tumor extension: Skin ? Present and not involved Nipple ? Ductal carcinoma does not involve nipple epidermis Skeletal muscle ? Skeletal muscle is not present Margins: Margins are free of invasive ductal carcinoma and ductal carcinoma in situ are 4.5cm away from the closest posterior margin Regional lymph nodes: Number of lymph nodes examined - 18 Number of sentinel lymph nodes examined - 3 Number of lymph nodes with macrometastases - 1 Number of lymph nodes with micrometastases or isolated tumor cells - 0 Size of largest metastatic deposits ? 0.8 x 0.3cm (measured microscopically) Extranodal extension ? Not identified Distal metastases- Not applicable Treatment effect ? In the breast- Minimal response to presurgical therapy in the invasive carcinoma, In the lymph node- No definite response to presurgical therapy in the metastaticcarcinoma. Lymph vascular invasion ? Not identified Dermal lymph vascular invasion ? Not identified Ancillary Studies: Previously performed on same tumor ([id number] / [id number]) ER: positive (>95%, strong intensity) MS: positive (64%, moderate to strong intensity) Arg3dxf: positive (3+) Microcalcifications ? Present in the invasive carcinoma and non-neoplastic tissue PATHOLOGIC STAGE: pT1c (y) pN1a pMx February 12, 2025 CT chest: Lungs and Airways: Increased linear markings with areas of confluence in the anterior aspect of the right upper lobe suggestive of post radiation fibrosis/pneumonitis. The changes extend into the anterior aspect of the right middle lobe. There is a 5.75 mm nodule in the anterior aspect of the right lower lobe as seen on axial image number 83 this most likely represents focal area of scarring. February 12, 2025 CT abdomen and pelvis: IMPRESSION: Further decrease in size with almost complete resolution of the previously seen left retroperitoneal soft tissue density. Stable left hydronephrosis and left hydroureter. Circumferential wall thickening of the rectum. Treatment summary and response: * Neoadjuvant TCHP: March 19, 2024-July 02, 2024 (6 cycles). * Mastectomy with sentinel lymph node biopsy August 11, 2024. * Kadcyla (Ado- trastuzumab) to September 2024 * Adjuvant radiation therapy to right breast and axilla September 2024. 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 Blood in urine Rectal bleeding Diarrhea due to drug Prerenal azotemia Dysuria Anemia due to chronic blood loss Gastric reflux Acid reflux Edema of both lower legs Mass in the abdomen Hypomagnesemia Diarrhea Encounter for chemotherapy management Abnormal CT of the abdomen Port-A-Cath in place Anxiety Bladder disease History of diverticulitis History of echocardiogram Cancer of right female breast Encounter for education Wears hearing aid Wears glasses Wears contact lenses Post-menopausal Cancer Back pain Migraine headache Non-smoker History of edema History of stress test Cardiology follow-up encounter Hx of vaginal delivery Mitral valve prolapse Chronic headaches Back problem Anemia Arthritis Hypertension Surgical History History of lymph node dissection of right axilla S/P right mastectomy History of renal stent Hx of cystoscopy Hx of surgical procedure Status post total hysterectomy and bilateral salpingo-oophorectomy S/P cystoscopy Hx of right breast biopsy Hx of colonoscopy History of orthopedic surgery History of excision of pilonidal cyst Family History Mother Diabetes Hypertension Osteoarthritis Colon cancer Grandfather Heart disease Sister Lupus Fibromyalgia Sister , December 2022 from post op PE Endometrial cancer Father Cancer prostate. Social History Smoking Status: Never smoker alcohol intake: never substance use type: does not use caffeine: Yes what type of physical activity do you participate in: walking frequency: 3-4 times per week seatbelt use: always do you feel safe at home: Yes additional social history: -Dony ROS Constitutional Constitutional: Reports systems reviewed and no addt'l complaints, except as documented, fatigue and other Details: Able to do ADL at own. ; Denies fever(s) or weight loss Eyes Eyes: Reports systems reviewed and no addt'l complaints, except as documented ENT HEENT: Reports systems reviewed and no addt'l complaints, except as documented; Denies mouth lesions Cardiovascular Cardiovascular: Reports systems reviewed and no addt'l complaints, except as documented; Denies chest pain with activity or edema Respiratory/Chest Respiratory/Chest: Reports systems reviewed and no addt'l complaints, except as documented; Denies cough or dyspnea on exertion Gastrointestinal Gastrointestinal: Reports systems reviewed and no addt'l complaints, except as documented and hematochezia; Denies diarrhea, melena or nausea Genitourinary Genitourinary: Reports systems reviewed and no addt'l complaints, except as documented; Denies hematuria Musculoskeletal Musculoskeletal: Reports systems reviewed and no addt'l complaints, except as documented; Denies back pain Integumentary Integumentary: Reports systems reviewed and no addt'l complaints, except as documented; Denies new lesions Neurologic Neurologic: Reports systems reviewed and no addt'l complaints, except as documented and paresthesias RLE and LLE; Denies focal weakness or weakness Psychiatric Psychiatric: Reports systems reviewed and no addt'l complaints, except as documented Endocrine Endocrinology: Reports systems reviewed and no addt'l complaints, except as documented Hematologic/Lymphatic Hematologic/Lymphatic: Reports systems reviewed and no addt'l complaints, exceptas documented Allergic/Immunologic Allergic/Immunologic: Reports systems reviewed and no addt'l complaints, except as documented Intake Vital Signs 01/28/25 09:40 04/22/25 11:05 04/22/25 11:07 Height 5 ft 6 in 5 ft 6 in 5 ft 6 in Weight: 75.013 kg BMI 26.6 BP 162/89 H Blood Pressure Location Lt brachial Position Sitting Respiration 16 Pulse 73 Pulse Source Monitor Temp 97.9 F Temperature Source Temporal Artery Pulse Oximetry (%) 96 Oxygen Delivery Method room air Intake Is patient in pain?: No Allergies No Known Allergies Allergy (Verified 04/22/25 11:06) Medications ?Medication ?Instructions ?Recorded ?Confirmed ?Type vibegron 75 mg tablet (Gemtesa) 75 mg PO DAILY 3 04/22/25 History acetaminophen 500 mg tablet 500 mg PO Q6H PRN pain 04/22/25 History (Tylenol Extra Strength) ondansetron 8 mg disintegrating 8 mg PO Q8H PRN nausea and 08/17/24 04/22/25 Rx tablet vomiting #20 tabs lisinopril 40 mg tablet 40 mg PO DAILY #90 tabs 02/0 05/1404/22/25 Rx magnesium oxide 400 mg PO TID #90 caps 03/1004/22/25 Rx potassium chloride 20 mEq 20 meq PO BID #60 tabs 03/1104/22/25 Rx tablet,extended release(part/cryst) mesalamine 1,000 mg rectal 1 g MS QHS 90 days #90 ea 0 03/17/25 04/22/25 Rx suppository (Canasa) Have you fallen in the past year?: No Central Venous Access Central Venous Access: Yes Port/PICC: Port CBC, CMP April 26, 2025 reviewed in EMR Exam Physical Exam Narrative ECOG 1 Const alert, oriented x3 and no apparent distress General Appearance: cooperative and comfortable Nutritional Appearance: overweight HEENT Face and Sinus: normal facial exam Mouth: oral and palatal mucosa normal Eyes General Eye: normal appearance of both eyes Neck no lymphadenopathy and no JVD Chest Chest: vascular access Resp clear to auscultation bilaterally Cardio regular rate and regular rhythm Jugular Venous Distention: Negative for JVD GI soft to palpation, non-tender and non-distended Back/Spine no thoracic nor lumbar tenderness Extremity no clubbing, cyanosis or edema Skin Rashes: no rashes Neuro oriented x3, CN's II-XII intact bilaterally, moves all extremities and no focal motor deficits Coordination / Balance: [id number]-mx-[id number] test normal Speech: speech normal Gait (Neuro): normal gait Psych mental status grossly normal Coding Level of Care Code Off vis,est,level 4 Exam Problem Focused Diagnoses Malignant neoplasm of right breast in female, estrogen receptor positive, unspecified site of breast C50.911; Z17.0 Breast location: unspecified site of breast Estrogen receptor status: positive Regional lymph node metastasis present C77.9 Anemia D64.9 Iron deficiency anemia type: chronic blood loss Assessment and Plan Assessment and Plan (1) Cancer of right female breast: Status: Chronic Qualifiers: Breast location: unspecified site of breast Estrogen receptor status: positive Qualified Code(s): C50.911 - Malignant neoplasm of unspecified site ofright female breast; Z17.0 - Estrogen receptor positive status [ER+] (2) Regional lymph node metastasis present: Status: Chronic (3) Anemia: Status: Chronic Qualifiers: Iron deficiency anemia type: chronic blood loss Plan 69-year-old female with #1- Right breast cancer: Pathologic stage post neoadjuvant therapy II (T1c, N1, M0) 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 Tumor in the breast is ER positive (over 95%, strong) MS positive (64%, moderate to strong) and HER2 overexpressed 3+.Ki- 67 is positive low less than 5%. Whereas that in the pathologically confident metastasis in the right axillary lymph node is ER positive, MS positive and HER2/krysta 2+. Genetic testing (at time of diagnosis was endometrium cancer) was done in 2022 and showed no known deleterious mutation. * Received neoadjuvant for 6 cycles of TCHP February?June. Main toxicity reported during neoadjuvant therapy was manageable grade 1 diarrhea and electrolyte disturbances (hypokalemia partly due to prior diuretic use hypophosphatemia and hypomagnesemia), bone marrow toxicity with severe transfusion requiring anemia. * Then underwent mastectomy with sentinel lymph node biopsy with residual cancer was found and minimal response to neoadjuvant therapy noted. * Started postoperative Kadcyla (Ado-trastuzumab) September 2024. She also received adjuvant radiation therapy to the right breast and axilla September 2024. Imaging by CT scan of the chest abdomen and pelvis January 2025 shows some nonspecific right upper lobe changes possible inflammatory postradiation and a nonspecific 5.75 mm nodule in the right lower lobe. #2- History of endometrium cancer and incidental finding of retroperitoneal cystic mass the nature of which cannot be determined by imaging that included 2 CAT scans and MRI. Patient's past medical history is notable for history of endometrial cancer, stage II (T2, N0, M0) status post robotic total hysterectomy with bilateral salpingo-oophorectomy followed by adjuvant radiation therapy June - July 2023. On March 12, 2024 patient underwent cystoscopy, left retrograde pyelogram, left ureteroscopy with left ureteral stent insertion. April 08, [address]-guided biopsy of the mass no malignancy identified but necrotic tissue. June 2024 after the conclusion of neoadjuvant systemic therapy for breast cancer CT scan of the abdomen and pelvis reported a cystic lesion in the retroperitoneal that is decreasing in size. July [facility] oncology follow-up (Dr. Giles): Impression residual cystic lesion in the left periaortic area is most likely a benign lymphoid cyst with very mild residual hydronephrosis. Chronic comorbid conditions: Mitral valve prolapse, hypertension, nonspecific arthritis, history of endometrial carcinoma status post total hysterectomy with bilateral salpingo-oophorectomy followed by adjuvant radiation therapy in 2022. Plan: Based on NCCN guidelines and up-to-date review of management of early- stage invasive ductal cancer of the breast with intent to cure: 1. Continue systemic therapy with chemo- immune conjugate therapy with Kadcyla (ado- trastuzumab) for 14 cycles. 2. She completed adjuvant radiation therapy to the right breast. 3. Regarding the endometrium cancer the patient will continue to be followed by [facility] and urology. The ureteric stent was removed July 2024, and since then abdominal pain and hematuria improved. 4. Anemia-multifactorial including anemia of cancer and chemotherapy, no evidence for residual iron and B12 deficiency. 5. Elective imaging will be tentatively at the end of her adjuvant systemic therapy plus as clinically indicated. 6. Echocardiography monitoring of cardiac ejection fraction every 3 months; January 2025 remains normal at 60%, next will be due end of April 2025. She is being followed at the cardio oncology clinic as well. 7. Rectal bleeding, proctitis under the care of GI, Dr. Peres. Patient was seen with her family. Impression and plan discussed. Em Torres MD Chief Dispatcher, [facility] Divisions of Medical Oncology & Hematology Department of Internal Medicine [place] [address] This note was generated using a voice recognition system software. Although it was reviewed by the author prior to finalization, it may still contain incorrect words, spelling, and punctuation that were not noted when reviewing prior to saving. If a clinically significant typo or inaccurately typed phrase is noted, please notify the author. Clinical Quality Measures Falls Risk Screening/Assistive Devices Have you fallen in the past year?: No 04/22/25 1138 <Electronically signed by Em mcelroy MD> Date _ Em Torres MD Cosigner Signature: Date (if applicable) CC: ~ [place] [employer] Work Phone: 1(811) 346-773906-12-2025 Evaluation note* Diagnosis Onset Date Resolution Status Admit Date Anemia chronic April 01 10:01am Cancer of right female breast chroni c April 01, 2025 10:01am 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 April 01, 2025 10:01am Anemia chronic April 22, 2025 10:02am Cancer of right female breast chroni c April 22, 2025 10:02am 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 April 22, 2025 1 0:02am Anemia chronic May 13 10:05am Cancer of right female breast chroni c May 13, 2025 10:05am 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 May 13, 2025 10:05am Anemia chronic June 03, 025 10:02am Cancer of right female breast chroni c June 03, 2025 10:02am 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 June 03 10:02am BRBPR (bright red blood per rectum) acute June 17 12:53pm Elevated liver enzymes acute Au 2024 12:53pm Breast cancer of upper-outer quadrant of right female breast acute June 24 025 9:22am [employer]ne[employer] and Obstetric[employer] (FIGO) stage II malig acute June 24, 2025 9:22am Anemia chronic June 24, 2025 9:23am Cancer of right female breast chroni c June 24, 2025 9:23am 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 Enedelia 4th, 2 025 9:23am Breast cancer of upper-outer quadrant of right female breast acute July 26 1:39pm Status post hysterectomy acute July 26, 2025 1:39pm Uterine carcinoma acute July 26, 2025 1:39pm [place] [employer] [facility] Work Phone: 1(434) 747-336405-22-2025 Evaluation note* Diagnosis Onset Date Resolution Status Admit Date Breast cancer of upper-outer quadrant of right female breast acute March 11, 2025 9:56am [employer] Gyne[employer] and Obstetric[employer] (FIGO) stage II malig acute March 11, 2025 9:56am Anemia chronic March 11, 2025 9:56am Cancer of right female breast chroni c March 11, 2025 9:56am 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 March 11, 2025 9 :56am History of lymph node dissection of right axilla acute February 192024 10:16am S/P right mastectomy acute March 12, 2025 10:16am Seroma after procedure acute Ma y 2024 10:16am Elevated liver enzymes acute Ma y 2024 12:55pm Rectal bleeding acute March 17, 2025 12:55pm Anemia chronic April 01 10:01am Cancer of right female breast chroni c April 01, 2025 10:01am 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 April 01, 2025 10:01am Anemia chronic April 22, 2025 10:02am Cancer of right female breast chroni c April 22, 2025 10:02am 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 April 22, 2025 1 0:02am Anemia chronic May 13 10:05am Cancer of right female breast chroni c May 13, 2025 10:05am 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 May 13, 2025 10:05am Anemia chronic June 03, 2 025 10:02am Cancer of right female breast chroni c June 03, 2025 10:02am 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 June 03 10:02am BRBPR (bright red blood per rectum) acute June 17 12:53pm Elevated liver enzymes acute Au greg 2024 12:53pm [place] [employer] [facility] Work Phone: 1(310) 928-276705-22-2025 Evaluation note* Diagnosis Onset Date Resolution Status Admit Date Breast cancer of upper-outer quadrant of right female breast acute March 11, 2025 9 :56am [employer] Gyne[employer] and Obstetric[employer] (FIGO) stage II malig acute March 11, 2025 9:56am Anemia chronic March 11, 2025 9:56am Cancer of right female breast chroni c March 11, 2025 9:56am 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 March 11, 2025 9 :56am History of lymph node dissection of right axilla acute February 192024 10:16am S/P right mastectomy acute March 12, 2025 10:16am Seroma after procedure acute 2024 10:16am Elevated liver enzymes acute 2024 12:55pm Rectal bleeding acute March 17, 2025 12:55pm Anemia chronic April 01 10:01am Cancer of right female breast chroni c April 01, 2025 10:01am 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 April 01, 2025 10:01am Anemia chronic April 22, 2025 10:02am Cancer of right female breast chroni c April 22, 2025 10:02am 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 April 22, 2025 1 0:02am Anemia chronic May 13 10:05am Cancer of right female breast chroni c May 13, 2025 10:05am 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 May 13, 2025 10:05am Anemia chronic June 03, 025 10:02am Cancer of right female breast chroni c June 03, 2025 10:02am 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 June 03 10:02am BRBPR (bright red blood per rectum) acute June 17 12:53pm Elevated liver enzymes acute Au 2024 12:53pm Breast cancer of upper-outer quadrant of right female breast acute June 24, 025 9:22am [employer] Gynecology and Obstetrics (FIGO) stage II malig acute June 24, 2025 9:22am Anemia chronic June 24, 2025 9:23am Cancer of right female breast chroni c June 24, 2025 9:23am 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 June 24, 025 9:23am [facility] Work Phone: 1([phone]) 913-970905-13-2025 Discharge summary Author Roseann Tadeo [facility] Note Date/Time March 02, 2025 7:00p m [facility] [address] [place] [address] / REHABILITATION SERVICES DISCHARGE SUMMARY MR#: [id number] Acct: [id number] Name: LYSSA VASQUEZ Rep #: [id number] : 1955 69 From: Roseann Nunez Referring Dr.: SKYLA Walden Status: REG RCR Insurance: [employer] SELF PA[employer] INSURANCE Discharge Summary D/C summary: It has been my pleasure to treat LYSSA VASQUEZ referred by SKYLA Kendrick, with the diagnosis of Generalized weakness/Cancer of R breast for a total of 8 visit(s). Discharge Date: 03/02/25 Please see the following information for a summary of their discharge status. Subjective Subjective: She can tell when her neuropathy is acting up and knows to be extra cautious those days. She feels now that she can walk up the street by herself and less reliant her . She feels stronger and more endurance. She does not lose her balance as much. Pain Abdominal Cramping: Pain Intensity (Out of 10): 1 Overall Improvement % Improvement: 90 Objective Objective/Function: Gait: Walks with narrow base of support and occ veering but slight Stairs: up and down stairs recip with 1 hand rail. She did catch her toe ascending the step but did catch herself. She did not have to pull herself up with her arms FGA: 23 Gait with head turning: Slight off at times with horizontal head turns but no off balance with vertical/horizontal Goals Goal 1:: I HEP Goal Progress: Goal Met Goal 2:: Be able to walk 100 feet with upright posture with no veering Goal Progress: Goal Met Goal 3:: Be able to go up and down stairs recip with 1 hand rail without having to pull self up Goal Progress: Goal Met Goal 4:: Increase balance (FGA score was 13 at eval) Goal Progress: Goal Met Goal 5:: Be able to walk with head turns without veering Goal Progress: Goal Met Goal 6:: Be able to for walks comfortably without having to bring her with her Goal Progress: Goal Met Plan Plan: 2X/week for 8 weeks for balance training (varying surfaces, head turns, curb steps), steps, gait training, LE strength with HEP and possible gym routineto take with her to [facility] to do there. D/C Information Discharge Comments: DC PT to HEP/indep gym d/c sentence: If there are questions or concerns regarding this patient's physical therapy, please feel free to call me at [phone]. Thank you for the referral of thispatient. Sincerely, Roseann Tadeo, YULY Balance/Gait/Functional tests Balance/Special Test Scores Functional Gait Assessment Score: 23 % Disability: 23.3400 CATSIB Score (Max score 120 seconds): 110 Lower Extremity Functional Score: 70 Improvement % Improvement: 90 <Electronically signed by Roseann Tadeo MPT> 03/02/25 1336 CC: SKYLA Walden; Dr. Lex Bryant, DO ~ Signed [facility] Work Phone: 1([phone]) 401-611205-13-2025 Discharge summary [facility] [address] [place] [address] [address] [place] [address] / REHABILITATION SERVICES DISCHARGE SUMMARY MR#: [id number] Acct: [id number] Name: LYSSA VASQUEZ Rep #: [id number] : 1955 69 From: Roseann Nunez Referring Dr.: SKYLA Walden Status: REG RCR Insurance: [employer] SELF PAY INSURANCE Discharge Summary D/C summary: It has been my pleasure to treat LYSSA VASQUEZ referred by SKYLA Kendrick, with the diagnosis of Generalized weakness/Cancer of R breast for a total of 8 visit(s). Discharge Date: 03/02/25 Please see the following information for a summary of their discharge status. Subjective Subjective: She can tell when her neuropathy is acting up and knows to be extra cautious those days. She feels now that she can walk up the street by herself and less reliant her . She feels stronger and more endurance. She does not lose her balance as much. Pain Abdominal Cramping: Pain Intensity (Out of 10): 1 Overall Improvement % Improvement: 90 Objective Objective/Function: Gait: Walks with narrow base of support and occ veering but slight Stairs: up and down stairs recip with 1 hand rail. She did catch her toe ascending the step but didcatch herself. She did not have to pull herself up with her arms FGA: 23 Gait with head turning: Slight off at times with horizontal head turns but no off balance with vertical/horizontal Goals Goal 1:: I HEP Goal Progress: Goal Met Goal 2:: Be able to walk 100 feet with upright posture with no veering Goal Progress: Goal Met Goal 3:: Be able to go up and down stairs recip with 1 hand rail without having to pull self up Goal Progress: Goal Met Goal 4:: Increase balance (FGA score was 13 at eval) Goal Progress: Goal Met Goal 5:: Be able to walk with head turns without veering Goal Progress: Goal Met Goal 6:: Be able to for walks comfortably without having to bring her with her Goal Progress: Goal Met Plan Plan: 2X/week for 8 weeks for balance training (varying surfaces, head turns, curb steps), steps, gait training, LE strength with HEP and possible gym routineto take with her to [facility] to do there. D/C Information Discharge Comments: DC PT to HEP/indep gym d/c sentence: If there are questions or concerns regarding this patient's physical therapy, please feel free to call me at [phone]. Thank you for the referral of thispatient. Sincerely, Roseann Tadeo, MPT Balance/Gait/Functional tests Balance/Special Test Scores Functional Gait Assessment Score: 23 % Disability: 23.3400 CATSIB Score (Max score 120 seconds): 110 Lower Extremity Functional Score: 70 Improvement % Improvement: 90 03/02/25 1336 CC: SKYLA Walden; Dr. Lex Bryant, DO ~ Signed [facility]05-01-2025 Evaluation note* Diagnosis Onset Date Resolution Status Admit Date Anemia chronic February 18, 2025 10:33am Cancer of right female breast chroni c February 18, 2025 10:33am 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 February 18, 2025 10 :33am Breast cancer of upper-outer quadrant of right female breast acute March 11, 2025 9:56am [employer] (FIGO) stage II malig acute March 11, 2025 9:56am Anemia chronic March 11, 2025 9:56am Cancer of right female breast chroni c March 11, 2025 9:56am 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 March 11, 2025 9 :56am History of lymph node dissection of right axilla acute February 192024 10:16am S/P right mastectomy acute March 12, 2025 10:16am Seroma after procedure acute y 2024 10:16am Elevated liver enzymes acute Ma y 2024 12:55pm Rectal bleeding acute March 17, 2025 12:55pm Anemia chronic April 01 10:01am Cancer of right female breast chroni c April 01, 2025 10:01am 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 April 01, 2025 10:01am Anemia chronic April 22, 2025 10:02am Cancer of right female breast chroni c April 22, 2025 10:02am 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 April 22, 2025 1 0:02am Anemia chronic May 13 10:05am Cancer of right female breast chroni c May 13, 2025 10:05am 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 May 13, 2025 10:05am Anemia chronic June 03, 2 025 10:02am Cancer of right female breast chroni c June 03, 2025 10:02am 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 June 03 10:02am [facility] Work Phone: 1(677) 836-781504-07-2025 Evaluation note* Diagnosis Onset Date Resolution Status Admit Date Breast cancer of upper-outer quadrant of right female breast acute January 25, 2025 2:51pm Status post hysterectomy acute January 25, 2025 2:51pm Uterine carcinoma acute January 252024 2:51pm Anemia chronic January 28 9:09am Cancer of right female breast chroni c January 28, 2025 9:09am 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 January 28, 2025 9:09am Rectal bleeding acute January 10:23am Anemia chronic February 18, 2025 10:33am Cancer of right female breast chroni c February 18, 2025 10:33am 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 February 18, 2025 10 :33am Breast cancer of upper-outer quadrant of right female breast acute March 11, 2025 9:56am [employer] (FIGO) stage II malig acute March 11, 2025 9 :56am Anemia chronic March 11, 2025 9:56am Cancer of right female breast chroni c March 11, 2025 9:56am 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 March 11, 2025 9 :56am History of lymph node dissec tion of right axilla acute March 12, 2025 1 0:16am S/P right mastectomy acute March 12, 2025 10:16am Seroma after procedure acute 2024 10:16am Elevated liver enzymes acute 2024 12:55pm Rectal bleeding acute March 17, 2025 12:55pm Anemia chronic April 01 10:01am Cancer of right female breast chroni c April 01, 2025 10:01am 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 April 01, 2025 10:01am Anemia chronic April 22, 2025 10:02am Cancer of right female breast chroni c April 22, 2025 10:02am 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 April 22, 2025 1 0:02am [facility] Work Phone: 1(521) 396-230504-07-2025 Evaluation note* Diagnosis Onset Date Resolution Status Admit Date Breast cancer of upper-outer quadrant of right female breast acute January 25, 2025 2:51pm Status post hysterectomy acute January 25, 2025 2:51pm Uterine carcinoma acute January 252024 2:51pm Anemia chronic January 28 9:09am Cancer of right female breast chroni c January 28, 2025 9:09am 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 January 28, 2025 9:09am Rectal bleeding acute January 10:23am Anemia chronic February 18, 2025 10:33am Cancer of right female breast chroni c February 18, 2025 10:33am 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 February 18, 2025 10 :33am Breast cancer of upper-outer quadrant of right female breast acute March 11, 2025 9:56am [employer] (FIGO) stage II malig acute March 11, 2025 9 :56am Anemia chronic March 11, 2025 9:56am Cancer of right female breast chroni c March 11, 2025 9:56am 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 March 11, 2025 9 :56am History of lymph node dissec tion of right axilla acute March 12, 2025 1 0:16am S/P right mastectomy acute March 12, 2025 10:16am Seroma after procedure acute y 2024 10:16am Elevated liver enzymes acute Ma y 2024 12:55pm Rectal bleeding acute March 17, 2025 12:55pm Anemia chronic April 01 10:01am Cancer of right female breast chroni c April 01, 2025 10:01am 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 April 01, 2025 10:01am Anemia chronic April 22, 2025 10:02am Cancer of right female breast chroni c April 22, 2025 10:02am 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 Lex Bryant, DO Status:RE G SDC Y Race: C Location: [place] [address] ASA Classification* ASA Classification ASA Classification: 3 Assessment & Plan Anesthesia* Anesthesia Assessment Anesthesia Assessment: Discussed sedation and/or anesthesia options, risks, benefits, and alternatives with patient/parents/legal guardian/POA. Questions invited. The patient/parents/legal guardian/POA seems to understand and agrees to proceedwith anesthesia plan. Reviewed the physical assessment, medical history, allergy history and patient home medications list prior to surgery/procedure/anesthetic and documented any changes. Performed airway and anesthesia risk assessments. Anesthesia Type Anesthesia Type: MAC History Source History Obtained from:: Patient and Chart Anesthesia Focused Assessment* Temperature: 98.6 F Pulse Rate: 103 Blood Pressure: 172/89 Respiratory Rate: 16 Pulse Ox: 98 Oxygen Delivery Method: Room Air Airway Assessment Mouth opens: >3 cm Mallampati Score: II Teeth Condition: Intact Neck Range of motion (ROM): Limited ROM (Slight decrease in extension) Focused Labs Anesthesia Preop lab: CBC WBC 2.9 K/mm3 (4.4-11.0) L 01/07/25 07:45 01/07/25 RBC 3.60 M/mm3 (4.2-5.4) L 01/07/25 07:45 01/07/25 Hgb 11.4 g/dL (12.0-15.0) L 01/07/25 07:45 5 Hct 34.3 % (37-47) L 01/07/25 07:45 01/07/25 Plt Count 166 K/mm3 (150-450) 01/07/25 07:45 01/07/25 CHEMISTRY Potassium 3.6 mmol/L (3.3-5.1) 01/07/25 07:45 01/07/25 Sodium 138 mmol/L (133-145) 01/07/25 07:45 01/07/25 Magnesium 1.4 mg/dL (1.5-2.2) L 01/07/25 07:45 01/07/25 Phosphorus 3.3 mg/dL (2.7-4.5) 01/07/25 07:45 01/07/25 BUN 18 mg/dL (4-19) 01/07/25 07:45 01/07/25 Creatinine 0.66 mg/dL (0.70-1.20) L 01/07/25 07:45 Glucose 88 mg/dL (70-99) 01/07/25 07:45 01/07/25 POC Glucose 109 mg/dL (74-106) H 04/02/23 08:44 04/02/23 COAG PT 13.0 SECONDS (11.7-14.9) 03/25/23 08:44 Pre-Assessment Diagnosis/Proposed Procedure Planned Operative Procedure(s): Flexible Sigmoidoscopy Anesthesia History Anesthesia History - correspondence coordinator: Anesthesia History - correspondence coordinator Hx Hospitalization Yes: MASTECTOMY -01/08/25 14:53 Any Problems With Anesthesia No 01/08/25 14:53 Cholinesterase deficiency No 01/08/25 14:53 You/Your Family Experience No 01/08/25 14:53 fever (hyperthermia) with Relationship Recent Exposure to Contagious No 08/11/24 07:14 Disease Does patient have nerve No 01/08/25 14:53 stimulator Patient instructed to have device shut off --Does patient have Pacemaker No 01/12/25 13:17 or ICD? When Was Last Pacemaker Check QUESTION #4 FULL TEXT: You/Your Family Experience fever (hyperthermia) with Anesthesia Last Oral Intake Last Oral intake: Last Oral Intake NPO since 07:00 01/12/25 13:17 Meds taken in AM with sips of Yes 01/12/25 13:17 water? Meds patient instructed to take am of surgery Any additional information?: Yes NPO since: 07:00 (Patient took meds with sip ofwater at 7 AM.) Meds taken in AM with sips of water?: Yes PONV PONV - correspondence coordinator: PONV - correspondence coordinator Female Yes 01/08/25 14:53 HX of Motion Sickness Yes 01/08/25 14:53 HX of N/V After Surgery No 01/08/25 14:53 Non-Smoker Yes 01/08/25 14:53 Duration of Surgery greater No 01/08/25 14:53 than 60 minutes Number of Risk Factors 3 01/08/25 14:53 PONV Score Moderate Risk 01/08/25 14:53 Height & Weight Height & Weight: Anesthesia: Height & Weight Height 5 ft 6 in 01/12/25 13:17 Weight: 73 kg 01/12/25 13:17 Body Mass Index (BMI) 25.9 01/12/25 13:17 Respiratory Assessment Respiratory Assessment - correspondence coordinator: Respiratory Tract Infection Hx - correspondence coordinator Hx Respiratory Tract Infection No 01/08/25 14:53 STOP Sleep Apnea STOP Sleep Apnea - correspondence coordinator: STOP Sleep Apnea - correspondence coordinator Hx Hypertension Yes: ON MEDS 01/08/25 14:53 Hx Sleep Apnea No 01/08/25 14:53 CPAP BIPAP Do you snore loudly (louder No 01/08/25 14:53 than talking or can be heard Do you often feel tired/ No 01/08/25 14:53 fatigued/ sleepy during daytime? Has anyone observed you stop No 01/08/25 14:53 breathing during sleep? STOP Results Negative 01/08/25 14:53 QUESTION #5 FULL TEXT : Do you snore loudly (louder than talking or can be heard through closed doors)? 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 Specify any problems Hx of Preganancy in last 3 No 01/08/25 14:53 Months Nurse Filling Out Transfusion JZOLLINGE 01/08/25 14:53 & Questions: Date: 01/08/25 01/08/25 14:53 Time: 14:56 01/08/25 14:53 Patient unable to answer at this time (ie. 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 Blood in urine Rectal bleeding Diarrhea due to drug Prerenal azotemia Dysuria Anemia due to chronic blood loss Gastric reflux Acid reflux Edema of both lower legs Mass in the abdomen Hypomagnesemia Diarrhea Encounter for chemotherapy management Abnormal CT of the abdomen Port-A-Cath in place Anxiety Bladder disease History of diverticulitis History of echocardiogram Cancer of right female breast Encounter for education Wears hearing aid Wears glasses Wears contact lenses Post-menopausal Cancer Back pain Migraine headache Non-smoker History of edema History of stress test Cardiology follow-up encounter Hx of vaginal delivery Mitral valve prolapse Chronic headaches Back problem Anemia Arthritis Hypertension Home Medications ?Medication ?Instructions ?Recorded ?Last Taken ?Type vibegron 75 mg tablet (Gemtesa) 75 mg PO DAILY 3 01/12/25 History ibuprofen 200 mg capsule 800 mg PO Q6H PRN pain 03/19 Unknown History loperamide 2 mg capsule (Imodium 2 mg PO Q6H PRN loose stool 04/03/24 08/11/24 History A-D) acetaminophen 500 mg tablet 500 mg PO Q6H PRN pain Unknown History (Tylenol Extra Strength) ondansetron 8 mg disintegrating 8 mg PO Q8H PRN nausea and 08/17/24 Unknown Rx tablet vomiting #20 tabs potassium chloride 20 mEq 20 meq PO BID #60 tabs 11/10 Unknown Rx tablet,extended release(part/cryst) lisinopril 40 mg tablet 40 mg PO DAILY #90 tabs 02/05/1401/12/25 07:00 Rx magnesium oxide 400 mg PO TID #90 caps 12/08 Unknown Rx hydrocortisone acetate 25 mg 25 mg MS QHS #12 ea 12/28 Unknown Rx rectal suppository (Anusol-HC) Allergy/AdvReac Type Severity Reaction Status Date / Time No Known Allergies Allergy Verified 01/12/25 13:18 Family History Mother Diabetes Hypertension Osteoarthritis Colon cancer Grandfather Heart disease Sister Lupus Fibromyalgia Sister , December 2022 from post op PE Endometrial cancer Father Cancer prostate. Surgical History H/O right mastectomy History of lymph node dissection of right axilla S/P right mastectomy History of renal stent Hx of cystoscopy Hx of surgical procedure Status post total hysterectomy and bilateral salpingo-oophorectomy S/P cystoscopy Hx of right breast biopsy Hx of colonoscopy History of orthopedic surgery History of excision of pilonidal cyst Social History Smoking Status: Never smoker alcohol intake: never substance use type: does not use caffeine: Yes what type of physical activity do you participate in: walking frequency: 3-4 times per week seatbelt use: always do you feel safe at home: Yes additional social history: -Dony Review of Systems (Anesthesia) ROS Narrative System reviewed and no additional complaints, except as documented. 01/12/25 1353 <Electronically signed by Weston aguayo MD> Date _ Weston Todd MD Cosigner Signature: Date CC: ~ Signed [facility] Work Phone: 1(453) 908-686803-25-2025 Consult note [facility] Medical Records Department [address] [place] [id number] Anesthesia Postop Eval I 01/12/25 1508 MR#: [id number] Acct: [id number] Name: LYSSA VASQUEZ Rep #:[id number] : 1955 69 From: Rashid Sheppard PCP: Dr. Lex Bryant, DO Status:RE G SDC Y Race: C Location: [place] [address] Anesthesia: Postop Eval I Current Vital Signs Temperature: 97.5 F Pulse Rate: 97 Blood Pressure: 133/67 Respiratory Rate: 16 Pulse Ox: 97 Oxygen Delivery Method: Room Air Assessment Airway patent: Yes Spontaneous unlabored respirations: Yes Mental status: Awake and Calm nausea: No Vomiting: No Anesthesia Complication: No Fluid Hydration Crystalloid volume administer (ml): 30 Total IV fluid infused: 30 Progress Note Anesthesia document: Postop Eval 1 completed: Yes 01/12/25 1509 > Date _ Rashid Parisi Signature: Date CC: ~ Signed [facility]03-25-2025 Procedure note [facility] Medical Records Department [address] [place] [address] Flex Sigmoidoscopy Report MR#: [id number] Acct: [id number] Name: LYSSA VASQUEZ Rep #:[id number] : 1955 69 From: Patrick Peres DO PCP: Dr. Lex Bryant DO Status:[facility] Patient Name: Lyssa Vasquez Procedure Date: 01/12/2025 2:42 PM Date of : 1955 Age: 69 Procedure: Flexible Sigmoidoscopy Indications: Hematochezia Providers: Patrick Peres DO Referring MD: Patrick Peres DO Medicines: Monitored Anesthesia Care, None Patient Profile: This is a 69 year old female. Refer to note in patient chart for documentation of history and physical. Last Colonoscopy: 6 months ago. Complications: No immediate complications. Procedure: Pre-Anesthesia Assessment: - Prior to the procedure, a History and Physical was performed, and patient medications and allergies were reviewed. The patient is competent. The risks and benefits of the procedure and the sedation options and risks were discussed with the patient. All questions were answered and informed consent was obtained. Patient identification and proposed procedure were verified by the physician in the pre-procedure area. Mental Status Examination: alert and oriented. Airway Examination: normal oropharyngeal airway and neck mobility. Respiratory Examination: clear to auscultation. CV Examination: normal. ASA Grade Assessment: II - A patient with mild systemic disease. After reviewing the risks and benefits, the patient was deemed in satisfactory condition to undergo the procedure. The anesthesia plan was to use monitored anesthesia care (MAC). Immediately prior to administration of medications, the patient was re-assessed for adequacy to receive sedatives. The heart rate, respiratory rate, oxygen saturations, blood pressure, adequacy of pulmonary ventilation, and response to care were monitored throughout the procedure. The physical status of the patient was re-assessed after the procedure. After obtaining informed consent, the endoscope was passed under direct vision. Throughout the procedure, the patient's blood pressure, pulse, and oxygen saturations were monitored continuously. The Endoscope was introduced through the anus and advanced to the descending colon. The flexible sigmoidoscopy was accomplished without difficulty. The patient tolerated the procedure well. The quality of the bowel preparation was poor. Scope In: 2:56:52 PM Scope Out: 3:01:12 PM Total Procedure Duration Time 0 hours 4 minutes 20 seconds Findings: Hemorrhoids were found on perianal exam. Multiple large diffuse angiodysplastic lesions with bleeding were found in the rectum. Coagulation for hemostasis using argon plasma at 0.3 liters/minute and 20 cody was successful. Estimated blood loss was minimal. Impression: - Preparation of the colon was poor. - Hemorrhoids found on perianal exam. - Multiple bleeding colonic angiodysplastic lesions. Treated with argon plasma coagulation (APC). - No specimens collected. Recommendation: - Use original regular Metamucil one teaspoon PO daily. Procedure Code(s): --- Professional --- 37349, Sigmoidoscopy, flexible; with control of bleeding, any method CPT copyright 2021 [employer]. All rights reserved. The codes documented in this report are preliminary and upon barrer and tacker review may be revised to meet current compliance requirements. Patrick Peres DO 01/12/2025 3:08:38 PM This report has been signed electronically. Number of Addenda: 0 Note Initiated On: 01/12/2025 2:42 PM 01/12/25 1508 Date _ Patrick Schneider Signature: Date (if indicated) CC: Dr. Lex Bryant DO; Patrick Peres DO ~ Date Dictated: 01/12/25 1442 Date Transcribed: Sailing Officer: YASMANY Signed [facility]03-25-2025 Procedure note [facility] Medical Records Department [address] [place] [address] Operative Report - CC Letter MR#: [id number] Acct: [id number] Name: LYSSA VASQUEZ Rep #:[id number] : 1955 69 From: Patrick Peres DO PCP: Dr. Lex Bryant DO Status:RE [facility] 01/12/2025 Lex Bryant Re : Flexible Sigmoidoscopy procedure for Lyssa Vasquez Dear Dr. Bryant This procedure was performed on Sunday, January 12, 2025. My impressions and recommendations are as follows: Impressions : - Preparation of the colon was poor. - Hemorrhoids found on perianal exam. - Multiple bleeding colonic angiodysplastic lesions. Treated with argon plasma coagulation (APC). - No specimens collected. Recommendations : - Use original regular Metamucil one teaspoon PO daily. My findings are described in the full procedure note, which is enclosed. If I can be of further assistance, please feel free to contact me at . Sincerely, Patrick Peres DO 01/12/2025 3:08:38 PM This report has been signed electronically. 01/12/25 1508 Date _ Patrick Peres DO Cosigner Signature: Date (if indicated) CC: Dr. eLx Bryant DO; Patrick Peres DO ~ Date Dictated: 01/12/25 1442 Date Transcribed: Sailing Officer: RF Signed [facility]03-25-2025 History and physical note [facility] Medical Records Department [address] [place] [address] History & Physical Exam 01/12/25 1438 MR#: [id number] Acct: [id number] Name: LYSSA VASQUEZ Rep #:[id number] : 1955 69 From: Patrick Friend DO PCP: Dr. Lex Bryant, DO [place] [facility] [address] HPI - General General Date of Admission: 01/12/25 Date of Service: 01/12/25 Chief Complaint: lower GI bleeding HPI Narrative LYSSA VASQUEZ, is a 69 F who presents Chief Complaint: rectal bleeding Details: LYSSA VASQUEZ is a 69 F who presents to the office today for LABS 12/17/2024 HGB 11.2 11/26/2024 HGB 10.7 10/15/2024 HGB 10.4 08/24/2024 HGB 9.2 PET 09/15/2024 1. NEGATIVE EXAMINATION. There is no definitive scintigraphic evidence of residual-viable neoplasm. 2. The linear increase in tracer concentration defined in the right anterior chest wall does not fulfill quantitative criteria for neoplasia. 3. Enhanced uptake noted in the right axilla does not fulfill quantitative criteria for malignant transformation. EGD 07/01/2024 ([facility]) - chronic gastritis, neg. H. pylori - Z-line variable. - Erythematous mucosa in the prepyloric region of the stomach. Biopsied. - Erythematous duodenopathy. - Use sucralfate tablets 1 gram PO QID for 2 COLON 07/01/2024 ([facility]) rectal biopsy negative for colitis - Hemorrhoids found on perianal exam. - Non-bleeding external and internal hemorrhoids. - Erythematous mucosa in the rectum. Biopsied. - The examination was otherwise normal. Her family history is notable for a sister with endometrial cancer, brother withprostate cancer andfather with colon cancer. ONCOLOGY 12/17/2024 #1- Right breast cancer: Pathologic stage post neoadjuvant therapy II (T1c, N1, M0) invasive ductalcancer of the right breast. Tumor in the breast is ER positive (over 95%, strong) MS positive (64%,moderate to strong) and HER2 overexpressed 3+.Ki-67 is positive low less than 5%. Whereas that in the pathologically confident metastasis in the right axillary lymph node is ER positive, MS positive and HER2/krysta 2+. Genetic testing (at time of diagnosis was endometrium cancer) was done in 2022 and showed no known deleterious mutation. Received neoadjuvant for 6 cycles of TCHP February?June. Main toxicity reported during neoadjuvant therapy was manageable grade 1 diarrhea and electrolyte disturbances (hypokalemia partly due to prior diuretic use hypophosphatemia and hypomagnesemia), bone marrow toxicity with severe transfus ion requiring anemia. Then underwent mastectomy with sentinel lymph node biopsy with residual cancer was found and minimal response to neoadjuvant therapy noted. Started postoperative Kadcyla (Ado-trastuzumab) September 2024. #2- History of endometrium cancer and incidental finding of retroperitoneal cystic mass the nature of which cannot be determined by imaging that included 2 CAT scans and MRI. Patient's past medical history is notable for history of endometrial cancer, stage II (T2, N0, M0) status post robotic total hysterectomy with bilateral salpingo-oophorectomy followed by adjuvant radiation therapy June - July2023. On March 12, 2024 patient underwent cystoscopy, left retrograde pyelogram, left ureteroscopy with left ureteral stent insertion. April 08, [address]-guided biopsy of the mass no malignancy identified but necrotic tissue. June 2024 after the conclusion of neoadjuvant systemic therapy for breast cancer CT scan of the abdomen and pelvis reported a cystic lesion in the retroperitoneal that is decreasing in size. July [facility] oncology follow-up (Dr. Giles): Impression residual cystic lesion in the left periaortic area is most likely a benign lymphoid cyst with very mild residual hydronephrosis. ----Anemia-multifactorial including anemia of cancer and chemotherapy, no evidence for residual iron and B12 deficiency. - she reports a history of hemorrhoids - bleeding is BRB and now passing clots - the bleeding has been more consistent the past 2 weeks - had a hard stool 3 weeks ago - denies any rectal pain - she is experiencing lower abdominal discomfort, like a menstrual cramp - denies any change in discomfort with a BM - stools have been very soft or formed, 3-4 stools daily this is an increase from her typical 2x a day - last week the bleeding was every day - no bleeding today - has had episodes that she is passing just blood - she reports chronic nausea secondary to chemo - denies any HB or emesis - denies any upper abdominal pain - very rare use of NSAIDS - Chemo every 3 weeks - next treatment due 01/07 PFSH Medical History 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 Blood in urine Rectal bleeding Diarrhea due to drug Prerenal azotemia Dysuria Anemia due to chronic blood loss Gastric reflux Acid reflux Edema of both lower legs Mass in the abdomen Hypomagnesemia Diarrhea Encounter for chemotherapy management Abnormal CT of the abdomen Port-A-Cath in place Anxiety Bladder disease History of diverticulitis History of echocardiogram Cancer of right female breast Encounter for education Wears hearing aid Wears glasses Wears contact lenses Post-menopausal Cancer Back pain Migraine headache Non-smoker History of edema History of stress test Cardiology follow-up encounter Hx of vaginal delivery Mitral valve prolapse Chronic headaches Back problem Anemia Arthritis Hypertension Home Medications ?Medication ?Instructions ?Recorded ?Last Taken ?Type vibegron 75 mg tablet (Gemtesa) 75 mg PO DAILY 3 01/12/25 History ibuprofen 200 mg capsule 800 mg PO Q6H PRN pain 03/19 Unknown History loperamide 2 mg capsule (Imodium 2 mg PO Q6H PRN loose stool 04/03/24 08/11/24 History A-D) acetaminophen 500 mg tablet 500 mg PO Q6H PRN pain Unknown History (Tylenol Extra Strength) ondansetron 8 mg disintegrating 8 mg PO Q8H PRN nausea and 08/17/24 Unknown Rx tablet vomiting #20 tabs potassium chloride 20 mEq 20 meq PO BID #60 tabs 11/10 Unknown Rx tablet,extended release(part/cryst) lisinopril 40 mg tablet 40 mg PO DAILY #90 tabs 05/1401/12/25 07:00 Rx magnesium oxide 400 mg PO TID #90 caps 12/08 Unknown Rx hydrocortisone acetate 25 mg 25 mg MS QHS #12 ea 12/28 Unknown Rx rectal suppository (Anusol-HC) Allergy/AdvReac Type Severity Reaction Status Date / Time No Known Allergies Allergy Verified 01/12/25 13:18 Family History Mother Diabetes Hypertension Osteoarthritis Colon cancer Grandfather Heart disease Sister Lupus Fibromyalgia Sister , December 2022 from post op PE Endometrial cancer Father Cancer prostate. Surgical History H/O right mastectomy History of lymph node dissection of right axilla S/P right mastectomy History of renal stent Hx of cystoscopy Hx of surgical procedure Status post total hysterectomy and bilateral salpingo-oophorectomy S/P cystoscopy Hx of right breast biopsy Hx of colonoscopy History of orthopedic surgery History of excision of pilonidal cyst Social History Smoking Status: Never smoker alcohol intake: never substance use type: does not use caffeine: Yes what type of physical activity do you participate in: walking frequency: 3-4 times per week seatbelt use: always do you feel safe at home: Yes additional social history: -Dony ROS Constitutional Constitutional: Denies fatigue, fever(s), poor appetite, weight gain or weight loss Gastrointestinal Gastrointestinal: Denies belching, bloating, change in bowel habits, change in stool character, chewing difficulty, coffee ground emesis, constipation, cramping, diarrhea, dyspepsia, dysphagia, earlysatiety, excessive flatus, fecalincontinence, heartburn, hematemesis, hematochezia, hemorrhoids, loose stools, melena, nausea, odynophagia, rectal bleeding, tenesmus, vomiting or weight changes Vital Signs Vital Signs Vital Signs: 01/12/25 13:17 01/12/25 13:17 01/12/25 13:53 Temperature 98.6 F 98.6 F Temperature Source Temporal Pulse Rate 103 H 103 H Respiratory Rate 16 16 Respiratory Pattern Normal Blood Pressure 172/89 H 172/89 H Blood Pressure Mean 116 Blood Pressure Source Monitor Blood Pressure Position Semi-Fowlers Blood Pressure Location Left Arm Pulse Ox 98 98 Oxygen Delivery Method Room Air Room Air Weight Weight: 160 lb 14.999 oz Body Mass Index (BMI) 25.9 Physical Exam Const alert, oriented x3, no apparent distress and healthy appearing General Appearance: cooperative GI normal to inspection, nondistended, normoactive bowel sounds, soft to palpation,non-tender and non-distended Percussion: normal to percussion Rectal Exam: deferred Assessment & Plan Assessment/Plan (1) BRBPR (bright red blood per rectum): PLAN: Assessment and Plan Assessment and Plan (1) Rectal bleeding: Status: Acute (2) Abdominal pain: Status: Acute (3) FH: colon cancer: Status: Chronic Comment: M dx age 59 (4) Anemia: Status: Chronic (5) Hemorrhoid: Status: Acute Orders: Orders Colonoscopy Today K62.5 - Hemorrhage of anus and rectum, R10.33 - Periumbilicalpain Medications: New hydrocortisone acetate (Anusol-HC) Sitz bath prior to insertion 25 mg MS QHS 12 ea 0RF Plan 69y/o female presents for consultation with complaints of rectal bleeding. She reports she is experiencing BRBPR and blood clots QD-QOD for the past 2-3 weeks.She reports she typically has diarrhea or soft stools, but did have one hard stool three weeks ago. She denies any rectal pain but is experiencing lower abdominal discomfort. Frequency of stools has increased form 2-4x a day. Colonoscopy revealed internal and external hemorrhoids June 2024. She is currently receiving chemo every 3 weeks for treatment of breast cancer. Labs completed one week ago showed an improvement in HGB. Rectalexam reveals a GradeIV hemorrhoid with ulceration. I recommend sitz baths and anusol suppositories for the next 12 days. I have scheduled her for a Sigmoidoscopy to evaluate for any other causes of bleeding. She will keep us apprised of her symptoms. Patient Instructions: Sitz bath and Anusol supp. x12 days Contact office with any increase in bleeding or pain Labs as planned on 01/07/2025 with oncology 01/12/25 1440 Cosigner Signature (if applicable): CC: Dr. Lex Bryant DO; Patrick Friend, ~ Signed [facility]03-25-2025 [facility]03-25-2025 Consult note [facility] Medical Records Department [address] [place] [address] Pre-Anesthesia Evaluation 01/12/25 1344 MR#: [id number] Acct: [id number] Name: LYSSA VASQUEZ Rep #:[id number] : 1955 69 From: Weston Todd MD PCP: Dr. Lex Bryant, DO Status:[facility] [place] C Location: [place] [address] ASA Classification* ASA Classification ASA Classification: 3 Assessment & Plan Anesthesia* Anesthesia Assessment Anesthesia Assessment: Discussed sedation and/or anesthesia options, risks, benefits, and alternatives with patient/parents/legal guardian/POA. Questions invited. The patient/parents/legal guardian/POA seems to understand and agrees to proceedwith anesthesia plan. Reviewed the physical assessment, medical history, allergy history and patient home medications list prior to surgery/procedure/anesthetic and documented any changes. Performed airway and anesthesia risk assessments. Anesthesia Type Anesthesia Type: MAC History Source History Obtained from:: Patient and Chart Anesthesia Focused Assessment* Temperature: 98.6 F Pulse Rate: 103 Blood Pressure: 172/89 Respiratory Rate: 16 Pulse Ox: 98 Oxygen Delivery Method: Room Air Airway Assessment Mouth opens: >3 cm Mallampati Score: II Teeth Condition: Intact Neck Range of motion (ROM): Limited ROM (Slight decrease in extension) Focused Labs Anesthesia Preop lab: CBC WBC 2.9 K/mm3 (4.4-11.0) L 01/07/25 07:45 01/07/25 RBC 3.60 M/mm3 (4.2-5.4) L 01/07/25 07:45 01/07/25 Hgb 11.4 g/dL (12.0-15.0) L 01/07/25 07:45 5 Hct 34.3 % (37-47) L 01/07/25 07:45 01/07/25 Plt Count 166 K/mm3 (150-450) 01/07/25 07:45 01/07/25 CHEMISTRY Potassium 3.6 mmol/L (3.3-5.1) 01/07/25 07:45 01/07/25 Sodium 138 mmol/L (133-145) 01/07/25 07:45 01/07/25 Magnesium 1.4 mg/dL (1.5-2.2) L 01/07/25 07:45 01/07/25 Phosphorus 3.3 mg/dL (2.7-4.5) 01/07/25 07:45 01/07/25 BUN 18 mg/dL (4-19) 01/07/25 07:45 01/07/25 Creatinine 0.66 mg/dL (0.70-1.20) L 01/07/25 07:45 Glucose 88 mg/dL (70-99) 01/07/25 07:45 01/07/25 POC Glucose 109 mg/dL (74-106) H 04/02/23 08:44 04/02/23 COAG PT 13.0 SECONDS (11.7-14.9) 03/25/23 08:44 Pre-Assessment Diagnosis/Proposed Procedure Planned Operative Procedure(s): Flexible Sigmoidoscopy Anesthesia History Anesthesia History - correspondence coordinator: Anesthesia History - correspondence coordinator Hx Hospitalization Yes: MASTECTOMY -01/08/25 14:53 Any Problems With Anesthesia No 01/08/25 14:53 Cholinesterase deficiency No 01/08/25 14:53 You/Your Family Experience No 01/08/25 14:53 fever (hyperthermia) with Relationship Recent Exposure to Contagious No 08/11/24 07:14 Disease Does patient have nerve No 01/08/25 14:53 stimulator Patient instructed to have device shut off --Does patient have Pacemaker No 01/12/25 13:17 or ICD? When Was Last Pacemaker Check QUESTION #4 FULL TEXT: You/Your Family Experience fever (hyperthermia) with Anesthesia Last Oral Intake Last Oral intake: Last Oral Intake NPO since 07:00 01/12/25 13:17 Meds taken in AM with sips of Yes 01/12/25 13:17 water? Meds patient instructed to take am of surgery Any additional information?: Yes NPO since: 07:00 (Patient took meds with sip ofwater at 7 AM.) Meds taken in AM with sips of water?: Yes PONV PONV - correspondence coordinator: PONV - correspondence coordinator Female Yes 01/08/25 14:53 HX of Motion Sickness Yes 01/08/25 14:53 HX of N/V After Surgery No 01/08/25 14:53 Non-Smoker Yes 01/08/25 14:53 Duration of Surgery greater No 01/08/25 14:53 than 60 minutes Number of Risk Factors 3 01/08/25 14:53 PONV Score Moderate Risk 01/08/25 14:53 Height & Weight Height & Weight: Anesthesia: Height & Weight Height 5 ft 6 in 01/12/25 13:17 Weight: 73 kg 01/12/25 13:17 Body Mass Index (BMI) 25.9 01/12/25 13:17 Respiratory Assessment Respiratory Assessment - correspondence coordinator: Respiratory Tract Infection Hx - correspondence coordinator Hx Respiratory Tract Infection No 01/08/25 14:53 STOP Sleep Apnea STOP Sleep Apnea - correspondence coordinator: STOP Sleep Apnea - correspondence coordinator Hx Hypertension Yes: ON MEDS 01/08/25 14:53 Hx Sleep Apnea No 01/08/25 14:53 CPAP BIPAP Do you snore loudly (louder No 01/08/25 14:53 than talking or can be heard Do you often feel tired/ No 01/08/25 14:53 fatigued/ sleepy during daytime? Has anyone observed you stop No 01/08/25 14:53 breathing during sleep? STOP Results Negative 01/08/25 14:53 QUESTION #5 FULL TEXT : Do you snore loudly (louder than talking or can be heard through closeddoors)? 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 Specify any problems Hx of Preganancy in last 3 No 01/08/25 14:53 Months Nurse Filling Out Transfusion JZOLLINGE 01/08/25 14:53 & Questions: Date: 01/08/25 01/08/25 14:53 Time: 14:56 01/08/25 14:53 Patient unable to answer at this time (ie. 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 Blood in urine Rectal bleeding Diarrhea due to drug Prerenal azotemia Dysuria Anemia due to chronic blood loss Gastric reflux Acid reflux Edema of both lower legs Mass in the abdomen Hypomagnesemia Diarrhea Encounter for chemotherapy management Abnormal CT of the abdomen Port-A-Cath in place Anxiety Bladder disease History of diverticulitis History of echocardiogram Cancer of right female breast Encounter for education Wears hearing aid Wears glasses Wears contact lenses Post-menopausal Cancer Back pain Migraine headache Non-smoker History of edema History of stress test Cardiology follow-up encounter Hx of vaginal delivery Mitral valve prolapse Chronic headaches Back problem Anemia Arthritis Hypertension Home Medications ?Medication ?Instructions ?Recorded ?Last Taken ?Type vibegron 75 mg tablet (Gemtesa) 75 mg PO DAILY 3 01/12/25 History ibuprofen 200 mg capsule 800 mg PO Q6H PRN pain 03/19 Unknown History loperamide 2 mg capsule (Imodium 2 mg PO Q6H PRN loose stool 04/03/24 08/11/24 History A-D) acetaminophen 500 mg tablet 500 mg PO Q6H PRN pain Unknown History (Tylenol Extra Strength) ondansetron 8 mg disintegrating 8 mg PO Q8H PRN nausea and 08/17/24 Unknown Rx tablet vomiting #20 tabs potassium chloride 20 mEq 20 meq PO BID #60 tabs 11/10 Unknown Rx tablet,extended release(part/cryst) lisinopril 40 mg tablet 40 mg PO DAILY #90 tabs 05/1401/12/25 07:00 Rx magnesium oxide 400 mg PO TID #90 caps 12/08 Unknown Rx hydrocortisone acetate 25 mg 25 mg MS QHS #12 ea 12/28 Unknown Rx rectal suppository (Anusol-HC) Allergy/AdvReac Type Severity Reaction Status Date / Time No Known Allergies Allergy Verified 01/12/25 13:18 Family History Mother Diabetes Hypertension Osteoarthritis Colon cancer Grandfather Heart disease Sister Lupus Fibromyalgia Sister , December 2022 from post op PE Endometrial cancer Father Cancer prostate. Surgical History H/O right mastectomy History of lymph node dissection of right axilla S/P right mastectomy History of renal stent Hx of cystoscopy Hx of surgical procedure Status post total hysterectomy and bilateral salpingo-oophorectomy S/P cystoscopy Hx of right breast biopsy Hx of colonoscopy History of orthopedic surgery History of excision of pilonidal cyst Social History Smoking Status: Never smoker alcohol intake: never substance use type: does not use caffeine: Yes what type of physical activity do you participate in: walking frequency: 3-4 times per week seatbelt use: always do you feel safe at home: Yes additional social history: -Dony Review of Systems (Anesthesia) ROS Narrative System reviewed and no additional complaints, except as documented. 01/12/25 1353 dede FULTON> Date _ Weston Todd MD Cosigner Signature: Date CC: ~ Signed [facility]03-10-2025 Evaluation note* Diagnosis Onset Date Resolution Status Admit Date Abdominal pain acute December 10:22am Hemorrhoid acute December 28 10:22am Rectal bleeding acute December 10:22am Anemia chronic December 28 10:22am FH: colon cancer chronic December 282024 10:22am Anemia chronic January 07 7:33am Cancer of right female breast chroni c January 07, 2025 7:33am 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 January 07, 2025 7:33am BRBPR (bright red blood per rectum) acute January 12, 2025 12:52pm Breast cancer of upper-outer quadrant of right female breast acute January 25, 2025 2:51pm Status post hysterectomy acute January 25, 2025 2:51pm Uterine carcinoma acute January 252024 2:51pm Anemia chronic January 28 9:09am Cancer of right female breast chroni c January 28, 2025 9:09am 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 January 28, 2025 9:09am Rectal bleeding acute January 10:23am Anemia chronic February 18, 2025 10:33am Cancer of right female breast chroni c February 18, 2025 10:33am 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 February 18, 2025 10 :33am Breast cancer of upper-outer quadrant of right female breast acute March 11, 2025 9:56am [employer] (FIGO) stage II malig acute March 11, 2025 9 :56am Anemia chronic March 11, 2025 9:56am Cancer of right female breast chroni c March 11, 2025 9:56am 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 March 11, 2025 9 :56am History of lymph node dissec tion of right axilla acute March 12, 2025 1 0:16am S/P right mastectomy acute March 12, 2025 10:16am Seroma after procedure acute 2024 10:16am Elevated liver enzymes acute 2024 12:55pm Rectal bleeding acute March 17, 2025 12:55pm Anemia chronic April 01 10:01am Cancer of right female breast chroni c April 01, 2025 10:01am 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 April 01, 2025 10:01am Anemia chronic April 22, 2025 10:02am Cancer of right female breast chroni c April 22, 2025 10:02am 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 April 22, 2025 1 0:02am [facility] Work Phone: 1(752) 395-448602-27-2025 Evaluation note* Diagnosis Onset Date Resolution Status Admit Date Anemia chronic December 17, 2024 9:23am Cancer of right female breast chroni c December 17, 2024 9:23am 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 December 17, 2 025 9:23am Abdominal pain acute December 10:22am Hemorrhoid acute December 28 10:22am Rectal bleeding acute December h2024 10:22am Anemia chronic December 28 10:22am FH: colon cancer chronic December 282024 10:22am Anemia chronic January 07 7:33am Cancer of right female breast chroni c January 07, 2025 7:33am 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 January 07, 2025 7:33am BRBPR (bright red blood per rectum) acute January 12, 2025 12:52pm Breast cancer of upper-outer quadrant of right female breast acute January 25, 2025 2:51pm Status post hysterectomy acute January 25, 2025 2:51pm Uterine carcinoma acute January 252024 2:51pm Anemia chronic January 28 9:09am Cancer of right female breast chroni c January 28, 2025 9:09am 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 January 28, 2025 9:09am Rectal bleeding acute January h2024 10:23am Anemia chronic February 18, 2025 10:33am Cancer of right female breast chroni c February 18, 2025 10:33am 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 February 18, 2025 10 :33am Breast cancer of upper-outer quadrant of right female breast acute March 11, 2025 9 :56am [employer] (FIGO) stage II malig acute March 11, 2025 9:56am Anemia chronic March 11, 2025 9:56am Cancer of right female breast chroni c March 11, 2025 9:56am 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 March 11, 2025 9 :56am History of lymph node dissection of right axilla acute February 192024 10:16am S/P right mastectomy acute March 12, 2025 10:16am Seroma after procedure acute 2024 10:16am Elevated liver enzymes acute 2024 12:55pm Rectal bleeding acute March 17, 2025 12:55pm [facility] Work Phone: 1(622) 369-895702-06-2025 Evaluation note* Diagnosis Onset Date Resolution Status Admit Date Anemia chronic November 26, 2024 9:27am Cancer of right female breast chroni c November 26, 2024 9:27am 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 November 26 9:27am Breast cancer acute November 72024 9:19am [employer] (FIGO) stage II malig acute November 272024 9:19am Hypertension chronic November 9:19am Anemia chronic December 17, 2024 9:23am Cancer of right female breast chroni c December 17, 2024 9:23am 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 December 17, 2 025 9:23am Abdominal pain acute December 10:22am Hemorrhoid acute December 28 10:22am Rectal bleeding acute December 10:22am Anemia chronic December 28 10:22am FH: colon cancer chronic December 282024 10:22am Anemia chronic January 07 7:33am Cancer of right female breast chroni c January 07, 2025 7:33am 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 January 07, 2025 7:33am BRBPR (bright red blood per rectum) acute January 12, 2025 12:52pm Breast cancer of upper-outer quadrant of right female breast acute January 25, 2025 2:51pm Status post hysterectomy acute January 25, 2025 2:51pm Uterine carcinoma acute January 252024 2:51pm Anemia chronic January 28 9:09am Cancer of right female breast chroni c January 28, 2025 9:09am 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 January 28, 2025 9:09am Rectal bleeding acute January 10:23am Anemia chronic February 18, 2025 10:33am Cancer of right female breast chroni c February 18, 2025 10:33am 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 February 18, 2025 10 :33am Breast cancer of upper-outer quadrant of right female breast acute March 11, 2025 9 :56am [employer] (FIGO) stage II malig acute March 11, 2025 9:56am Anemia chronic March 11, 2025 9:56am Cancer of right female breast chroni c March 11, 2025 9:56am 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 March 11, 2025 9 :56am History of lymph node dissection of right axilla acute February 192024 10:16am S/P right mastectomy acute March 12, 2025 10:16am Seroma after procedure acute 2024 10:16am [facility] Work Phone: 1(144) 173-915501-16-2025 Evaluation note* Diagnosis Onset Date Resolution Status Admit Date Breast cancer of upper-outer quadrant of right female breast acute November 05 9:28am [employer] (FIGO) stage II malig acute November 052024 9:28am 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 November 05 9:28am Diarrhea acute November 05, 2024 9:28am Anemia chronic November 05, 2024 9:28am Cancer of right female breast chroni c November 05, 2024 9:28am 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 November 05 9:28am Anemia chronic November 26, 2024 9:27am Cancer of right female breast chroni c November 26, 2024 9:27am 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 November 26 9:27am Breast cancer acute November 9:19am [employer] (FIGO) stage II malig acute November 272024 9:19am Hypertension chronic November 9:19am Anemia chronic December 17, 2024 9:23am Cancer of right female breast chroni c December 17, 2024 9:23am 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 December 17, 9:23am Abdominal pain acute December 10:22am Hemorrhoid acute December 28 10:22am Rectal bleeding acute December 10:22am Anemia chronic December 28 10:22am FH: colon cancer chronic December 282024 10:22am Anemia chronic January 07 7:33am Cancer of right female breast chroni c January 07, 2025 7:33am 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 January 07, 2025 7:33am BRBPR (bright red blood per rectum) acute January 12, 2025 12:52pm Breast cancer of upper-outer quadrant of right female breast acute January 25, 2025 2:51pm Status post hysterectomy acute January 25, 2025 2:51pm Uterine carcinoma acute January 252024 2:51pm Anemia chronic January 28 9:09am Cancer of right female breast chroni c January 28, 2025 9:09am 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 January 28, 2025 9:09am Rectal bleeding acute January 10:23am Anemia chronic February 18, 2025 10:33am Cancer of right female breast chroni c February 18, 2025 10:33am 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 February 18, 2025 10 :33am [facility] Work Phone: 1(418) 992-361912-23-2024 Evaluation note* Diagnosis Onset Date Resolution Status Admit Date Breast cancer of upper-outer quadrant of right female breast acute October 12, 2 024 12:39pm 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 October 12, 2 024 12:39pm Anemia chronic October 15, 2024 9:33am Cancer of right female breast chroni c October 15, 2024 9:33am 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 October 15, 024 9:33am Breast cancer of upper-outer quadrant of right female breast acute November 05 9:28am [employer] (FIGO) stage II malig acute November 052024 9:28am 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 November 05 9:28am Diarrhea acute November 05, 2024 9:28am Anemia chronic November 05, 2024 9:28am Cancer of right female breast chroni c November 05, 2024 9:28am 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 November 05 9:28am Anemia chronic November 26, 2024 9:27am Cancer of right female breast chroni c November 26, 2024 9:27am 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 November 26 9:27am Breast cancer acute November 9:19am [employer] (FIGO) stage II malig acute November 272024 9:19am Hypertension chronic November 9:19am Anemia chronic December 17, 2024 9:23am Cancer of right female breast chroni c December 17, 2024 9:23am 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 December 17, 2 025 9:23am Abdominal pain acute December 10:22am Hemorrhoid acute December 28 10:22am Rectal bleeding acute December 10:22am Anemia chronic December 28 10:22am FH: colon cancer chronic December 282024 10:22am Anemia chronic January 07 7:33am Cancer of right female breast chroni c January 07, 2025 7:33am 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 January 07, 2025 7:33am BRBPR (bright red blood per rectum) acute January 12, 2025 12:52pm Breast cancer of upper-outer quadrant of right female breast acute January 25, 2025 2:51pm Status post hysterectomy acute January 25, 2025 2:51pm Uterine carcinoma acute January 252024 2:51pm Anemia chronic January 28 9:09am Cancer of right female breast chroni c January 28, 2025 9:09am 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 January 28, 2025 9:09am Rectal bleeding acute January 10:23am [facility] Work Phone: 1(800) 182-229812-11-2024 Evaluation note* Diagnosis Onset Date Resolution Status Admit Date Breast cancer of upper-outer quadrant of right female breast acute September 30, 2 024 12:47pm 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 September 30, 2 024 12:47pm Breast cancer of upper-outer quadrant of right female breast acute October 07, 2 024 1:10pm 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 October 07, 2 024 1:10pm Breast cancer of upper-outer quadrant of right female breast acute October 12, 2 024 12:39pm 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 October 12, 2 024 12:39pm Anemia chronic October 15, 2024 9:33am Cancer of right female breast chroni c October 15, 2024 9:33am 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 October 15, 2 024 9:33am Breast cancer of upper-outer quadrant of right female breast acute November 05 9:28am [employer] (FIGO) stage II malig acute November 052024 9:28am 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 November 05 9:28am Diarrhea acute November 05, 2024 9:28am Anemia chronic November 05, 2024 9:28am Cancer of right female breast chroni c November 05, 2024 9:28am 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 November 05 9:28am Anemia chronic November 26, 2024 9:27am Cancer of right female breast chroni c November 26, 2024 9:27am 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 November 26 9:27am Breast cancer acute November 9:19am [employer] (FIGO) stage II malig acute November 272024 9:19am Hypertension chronic November 9:19am Anemia chronic December 17, 2024 9:23am Cancer of right female breast chroni c December 17, 2024 9:23am 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 December 17, 9:23am Abdominal pain acute December 10:22am Hemorrhoid acute December 28 10:22am Rectal bleeding acute December 10:22am Anemia chronic December 28 10:22am FH: colon cancer chronic December 282024 10:22am Anemia chronic January 07 7:33am Cancer of right female breast chroni c January 07, 2025 7:33am 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 January 07, 2025 7:33am BRBPR (bright red blood per rectum) acute January 12, 2025 12:52pm Breast cancer of upper-outer quadrant of right female breast acute January 25, 2025 2:51pm Status post hysterectomy acute January 25, 2025 2:51pm Uterine carcinoma acute January 252024 2:51pm Anemia chronic January 28 9:09am Cancer of right female breast chroni c January 28, 2025 9:09am 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 January 28, 2025 9:09am [facility] Work Phone: 1(342) 578-355812-03-2024 Evaluation note* Diagnosis Onset Date Resolution Status Admit Date History of lymph node dissection of right axilla acute Decem jose 2023 8:54am S/P right mastectomy acute Dece mber 2023 8:54am Seroma after procedure acute De cember 2023 8:54am Breast cancer of upper-outer quadrant of right female breast acute September 23 12:48pm 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 September 23 12:48pm Anemia chronic September 24, 2024 7:57am Cancer of right female breast chroni c September 24, 2024 7:57am 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 September 24 7:57am Breast cancer of upper-outer quadrant of right female breast acute September 30, 024 12:47pm 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 September 30, 024 12:47pm Breast cancer of upper-outer quadrant of right female breast acute October 07, 024 1:10pm 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 October 07, 024 1:10pm Breast cancer of upper-outer quadrant of right female breast acute October 12, 024 12:39pm 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 October 12, 024 12:39pm Anemia chronic October 15, 2024 9:33am Cancer of right female breast chroni c October 15, 2024 9:33am 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 October 15, 9:33am Breast cancer of upper-outer quadrant of right female breast acute November 05 9:28am [employer] (FIGO) stage II malig acute November 052024 9:28am 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 November 05 9:28am Diarrhea acute November 05, 2024 9:28am Anemia chronic November 05, 2024 9:28am Cancer of right female breast chroni c November 05, 2024 9:28am 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 November 05 9:28am Anemia chronic November 26, 2024 9:27am Cancer of right female breast chroni c November 26, 2024 9:27am 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 November 26 9:27am Breast cancer acute November 9:19am [employer] (FIGO) stage II malig acute November 272024 9:19am Hypertension chronic November 9:19am Anemia chronic February 27th, 2025 9:23am Cancer of right female breast chroni c December 17, 2024 9:23am 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 December 17, 2 025 9:23am Abdominal pain acute December 10:22am Hemorrhoid acute December 28 10:22am Rectal bleeding acute December 10:22am Anemia chronic December 28 10:22am FH: colon cancer chronic December 282024 10:22am Anemia chronic January 07 7:33am Cancer of right female breast chroni c January 07, 2025 7:33am 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 Lyssa Cruzber female with a stage II endometrial cancer diagnosed in March 2023 after undergoing hysterectomy for complex hyperplasia without atypia. Final pathology showed unfortunately agrade 1 endometrial cancer, no lymph- vascular space invasion but cervical invasion was noted.. She was treated with robotic surgical staging with washings, pelvic empiric lymph node sampling in April 2023 which was negative for metastatic disease. Patient subsequently referred for radiation oncologyand in May 2023 finished external beam as well as vaginal brachytherapy. She is now a year out from finishing therapy for her endometrial cancer. Patient underwent a planning CT scan in May 2023 which shows a fairly good size lower left periaortic lymphocyst. According to the patient and her family repeat imaging in February 2024 showed blockageof the left kidney. I personally reviewed the CT scan from February 2024 and it does show very minimal left hydronephrosis. Stent has subsequently been placed in the left kidney and is causing a lot of issues with bladder irritation as well as bladder pain as well as hematuria. Repeat imaging in June 2024 shows that the left lymphocyst is smaller, no evidence of recurrent disease is noted. The patient and her family states that a needle biopsy of the mass was done this year which showed no evide nce of malignant cells. The patient and her family are quite frustrated about what has been going on with the kidney and would like some answers. The patient and her family were told by the urologistthat stenting could no longer be done. Patient is most bothered by the stent with bladder irritation. She does deny any vaginal bleeding. Denies any adenopathy. Would also like to transfer her surveillance care back to Dr. Anton in [place] if at all possible. Recently finished chemotherapy in the neoadjuvant setting for breast cancer and is due to meet withthe breast surgeon. Past Medical History: Diagnosis Date Anemia Anxiety Arthritis Back problem bulging disc-no surgery needed Chronic headaches in past Hypertension Mitral valve prolapse Past Surgical History: Procedure Laterality Date BREAST BIOPSY Right benign COLONOSCOPY ORTHOPEDIC SURGERY Right 2007 rotator cuff repair OTHER SURGICAL HISTORY pilonidal cyst TOTAL ABDOMINAL HYSTERECTOMY W/ BILATERAL SALPINGOOPHORECTOMY 04/01/2023 Social History Socioeconomic History Marital status: Tobacco Use Smoking status: Never Smokeless tobacco: Never Vaping Use Vaping status: Never Used Substance and Sexual Activity Alcohol use: Yes Comment: once a year Drug use: Never Current Outpatient Medications Medication Sig Dispense Refill lisinopril 20 MG tablet daily. Vibegron 75 MG tablet Take 75 mg by mouth every morning. No current facility-administered medications for this visit. Review of Systems Constitutional: Negative for appetite change and unexpected weight change. Genitourinary: Positive for dysuria, hematuria, pelvic pain and urgency. Negative for vaginal bleeding and vaginal discharge. Bladder pain and irritation Hematological: Negative for adenopathy. Patient has no known allergies. BP (!) 155/87 Pulse 90 Ht 1.676 m (5' 6) Wt 86.2 kg (190 lb) BMI 30.67 kg/m Physical Exam Vitals and nursing note reviewed. Exam conducted with a therapy aide present. Constitutional: Appearance: Normal appearance. Abdominal: General: Abdomen is flat. Palpations: Abdomen is soft. Genitourinary: General: Normal vulva. Comments: Uterus/tubes/ovaries are absent Vagina: well healed cuff. No masses BME: no masses Bladder: no masses Urethra: midline and mobile Lymphadenopathy: Upper Body: Right upper body: No supraclavicular adenopathy. Left upper body: No supraclavicular adenopathy. Lower Body: No right inguinal adenopathy. No left inguinal adenopathy. Skin: General: Skin is warm and dry. Neurological: Mental Status: She is alert. Psychiatric: Mood and Affect: Mood normal. Behavior: Behavior normal. Reviewed several imaging studies dating back from May 2023 with the patient and her family showing the evolution of the cystic lesion in the left periaortic area which is most likely of benign lymphocyst. It is getting smaller. She has very mild hydronephrosis noted. Also that the most recent CTscan in June shows no evidence of recurrent disease. I also reviewed several notes from the radiation oncologist in the chart. I also personally called the urology physician with a note to have her call me back to discuss thiscase. Assessment: Stage II endometrial cancer currently with no evidence of recurrent disease 1 year status posttreatment Breast cancer being treated in [facility] from ureteral stent placed for small left lower periaortic lymphocyst which has decreased in size Plan: Recommend that the urologist pull the stent to see if the hydronephrosis has resolved, can repeat renal ultrasound to see if the stent can be removed permanently. Recommend follow-up with her ripsaw matcher every 6 months for 5 years for vaginal and pelvic exam. dental hygiene administrative assistant spent in review of multiple EMR [id number] discussion with the patient and her and her son as well as coordination of care for follow- up and recommendations for urologic care was 35 minutes documented in this [facility]10-01-2024 Miscellaneous Notes* Telephone Encounter - Cheryle HuffmanTONE villatoro - SUPPLEMENTAL MANAGER - 07/21/2024 2:56 PM EDT ----- Message from Champ Giles MD sent at 07/20/2024 9:28 AM EDT ----- Please call patient and let her know that the small lymphocyst on the left side has gotten smaller. I know she only wants to be seen in the [place] office and were having some difficulty getting that scheduled. Tell her another option would be to follow-up with her primary ripsaw matcher Dr. Ann 6 months in [place] for vaginal and pelvic exam. If she chooses this route let me know so that I can let Dr. Anton know what is going on ----- Message ----- From: Beata Chowdhury Sent: 07/20/2024 8:13 AM EDT To: Champ Giles MD; # documented in this encounterSNationwide Children's [id number] Telephone encounter Note* Telephone Encounter - TONE Wilson CNP - 07/21/2024 2:56 PM EDT ----- Message from Champ Giles MD sent at 07/20/2024 9:28 AM EDT ----- Please call patient and let her know that the small lymphocyst on the left side has gotten smaller. I know she only wants to be seen in the [place] office and were having some difficulty getting that scheduled. Tell her another option would be to follow-up with her primary ripsaw matcher Dr. Ann 6 months in [place] for vaginal and pelvic exam. If she chooses this route let me know so that I can let Dr. Anton know what is going on ----- Message ----- From: Beata Chowdhury Sent: 07/20/2024 8:13 AM EDT To: Champ Giles MD; # [facility] Phone: 1(983) 305-549906-28-2024 Telephone encounter Note* Telephone Encounter - Pam Rainey RN - 04/17/2024 2:23 PM EDT Patient requesting [place] only. Scheduled for 07/08@[address] Giles. She agrees with the plan and verbalizes understanding. [facility] [id number] Miscellaneous Notes* Telephone Encounter - Pam Rainey RN - 04/17/2024 2:23 PM EDT Patient requesting [place] only. Scheduled for 07/08@[address] Giles. She agrees with the plan and verbalizes understanding. * Telephone Encounter - Pam Rainey RN - 04/17/2024 1:59 PM EDT Spoke to patient and her follow up is 05/27 but she was diagnosed with breast cancer and her chemo txs will not be finished until the middle june. She would like to see Dr. Giles then. * Telephone Encounter - Maryana Jalloh - 04/17/2024 12:50 PM EDT Patient would like a call back from medical staff regarding the rescheduling of her appt with Daisy. Stated she will have chemo appointments until June and was not sure when would be best to come in. Please advise, thank you! documented in this encounterSNationwide Children's [id number] Telephone encounter Note* Telephone Encounter - Pam Rainey RN - 04/17/2024 1:59 PM EDT Spoke to patient and her follow up is 05/27 but she was diagnosed with breast cancer and her chemo txs will not be finished until the middle june. She would like to see Dr. Giles then. [facility] [id number] Telephone encounter Note* Telephone Encounter - Maryana Jalloh - 04/17/2024 12:50 PM EDT Patient would like a call back from medical staff regarding the rescheduling of her appt with Daisy. Stated she will have chemo appointments until June and was not sure when would be best to come in. Please advise, thank you! [facility] [id number] Telephone encounter Note* Telephone Encounter - Champ Giles MD - 04/03/2024 12:27 PM EDT Left Vm x 2 [facility] [id number] Miscellaneous Notes* Telephone Encounter - Champ Giles MD - 04/03/2024 12:27 PM EDT Left Vm x 2 * Telephone Encounter - Ronaldtre Chavez - 04/02/2024 1:38 PM EDT Patient states that she was diagnosed with breast cancer in January and has been doing chemo. An enlarged lymph node and mass within kidney/ureter were found. [facility]'s oncologist at [facility], Dr. Em Torres, would like Dr. Cassidy's opinion. Their call back is [phone]. documented in this encounterSNationwide Children's [id number] Telephone encounter Note* Telephone Encounter - Ronaldtre Chavez - 04/02/2024 1:38 PM EDT Patient states that she was diagnosed with breast cancer in January and has been doing chemo. An enlarged lymph node and mass within kidney/ureter were found. [facility]'s oncologist at [facility], Dr. Em Torres, would like Dr. Cassidy's opinion. Their call back is [phone]. [facility] [id number] Miscellaneous Notes* Telephone Encounter - Ronaldtre Chavez - 04/02/2024 1:38 PM EDT Patient states that she was diagnosed with breast cancer in January and has been doing chemo. An enlarged lymph node and mass within kidney/ureter were found. [facility]'s oncologist at [facility], Dr. Em Torres, would like Dr. Cassidy's opinion. Their call back is [phone]. documented in this [facility]02-07-2024 History of Present illness Narrative* Daisy Hopson, TONE - [facility] - 11/27/2023 10:00 AM EST @LOGOIMAGE@ Chief Complaint Patient presents with Follow-up Pt has no concerns HISTORY OF THE PRESENT ILLNESS: Lyssa Vasquez is a 68 y.o. with a history of stage II grade 1 endometrial cancer status post surgical excision who presents today for routine surveillance of disease. She was initially diagnosed in 05/14/23 and managed with completion surgical staging with pelvic and parotic lymph node sampling alongwith abdominal cytology. Pt also underwent pelvic radiotherapy from 06/25/23-07/29/[address] New Ibrahim in [place]. Brachytherapy was completed 08/06/23. 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 Interval History Since the patient's last visit, she has been doing well and is without complaints. She does not have: Abdominal pain, abdominal distention, pelvic pain, bloating, constipation, nausea/vomiting, increased abdominal girth, early satiety, weight loss, weight gain, vaginal bleeding, vaginal discharge, changes with urination. Pt sees urology. Was having urination issues, had UTI which was treated and was also taking Urogesic blue which pt completed therapy. No urination issues recently. Has 2 grown children and 4 grand daughters. Past Medical History: Diagnosis Date Anemia Anxiety Arthritis Back problem bulging disc-no surgery needed Chronic headaches in past Hypertension Mitral valve prolapse Past Surgical History: Procedure Laterality Date BREAST BIOPSY Right benign COLONOSCOPY ORTHOPEDIC SURGERY Right 2007 rotator cuff repair OTHER SURGICAL HISTORY pilonidal cyst TOTAL ABDOMINAL HYSTERECTOMY W/ BILATERAL SALPINGOOPHORECTOMY 04/01/2023 @MEDCMED@ Allergies as of 11/27/2023 (No Known Allergies) REVIEW OF SYSTEMS: As per the HPI, otherwisenegative. Vitals: 11/27/23 0925 BP: (!) 170/77 Pulse: 81 Body mass index is 33.01 kg/m . Physical Exam Constitutional: Appearance: Normal appearance. HENT: Head: Normocephalic. Pulmonary: Effort: Pulmonary effort is normal. Abdominal: Palpations: Abdomen is soft. Genitourinary: Comments: .Uterus, cervix, bilateral adnexa surgically absent. No lesions or nodularity of the vaginal cuff, posterior cul-de-sac or rectovaginal vault. Skin: General: Skin is warm and dry. Neurological: Mental Status: She is alert and oriented to person, place, and time. Psychiatric: Mood and Affect: Mood normal. Behavior: Behavior normal. ASSESSMENT/PLAN: 68 y.o. with stage II grade 1 endometrial cancer, currently without evidence of recurrence of disease. Continue routine surveillance of disease every 6 months for the next 5 years for surveillance visits. Educated pt about dilator use-2-3 times per week for 10 minutes each time. The patient had an opportunity to ask questions, all of which were answered to the best of my ability. She is in agreement with the above noted plan. >51% of the visit was spent in direct face to face counseling and coordination of care. documented in this [facility]12-26-2023 Telephone encounter Note* Telephone Encounter - Ronald Chavez - 10/15/2023 1:51 PM EST LVM to r/s either with attending physician same day OR with provider on a different day - provider not in office [facility] [id number] Miscellaneous Notes* Telephone Encounter - Ronald Chavez - 10/15/2023 1:51 PM EST LVM to r/s either with attending physician same day OR with provider on a different day - provider not in office documented in this [facility]09-06-2023 Discharge summary Author Clemencia Murguia [facility] June 26, 2023 8:48am Note Date/Time June 26, 2023 8:47am [facility] Occupational Therapy [facility] [address] [place] [address] / REHABILITATION SERVICES DISCHARGE SUMMARY MR#: [id number] Acct: [id number] Name: LYSSA VASQUEZ Rep #: [id number] : 1955 67 From: Clemencia BERNAL CHT Referring Dr.: Dr. New Ibrahim DO Status: REG RCR Eval Date: Discharge Date: Discharge Summary D/C Summary: It has been my pleasure to treat LYSSA VASQUEZ under orders from Dr. 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 Please see the following information for a summary of their discharge status. Goals Patient Goals: Other Other: learn signs and symptoms of lymphedema ed. on need for compression garments with travel by plane. Plan Plan: pt at this time was ed. on lymphedema signs and symptoms and if they develop what she can do to stimulate lymph fluid circulation. Pt was ed. even ifshrobinson does not have symptoms she will need compression garment when traveling by plane. pt demo understanding and agree to one time visit- assured therapist she would let know if any symptoms of lymphedema arise during or following radiation. D/C Information d/c sentence: If there are questions or concerns regarding this patient's occupational therapy, please fell free to call me at [phone]. Thank you for the referral of this patient. Sincerely, DOLORES Wang CHT <Electronically signed by Clemencia BERNAL CHT> 06/26/23 0848 CC: Dr. New Ibrahim DO ~ MK Signed [facility] Work Phone: 1(278) 518-422308-07-2023 Telephone encounter Note* Telephone Encounter - Champ Giles MD - 05/27/2023 12:19 PM EDT Pt called with an attic study showing a VUS. Discussed that she has both a mother and a sister who had Cerna related cancers. Unfortunately they are both so but could not be done on them. I did recommend she called the [employer] that did the test to let them know that she does have first- degree relatives with colon and endometrial cancer to see if this may change their decision on variant of uncertain significance versus pathogenic variant. [facility] [id number] Miscellaneous Notes* Telephone Encounter - Champ Giles MD - 05/27/2023 12:19 PM EDT Pt called with an attic study showing a VUS. Discussed that she has both a mother and a sister who had Cerna related cancers. Unfortunately they are both so but could not be done on them. I did recommend she called the [employer] that did the test to let them know that she does have first- degree relatives with colon and endometrial cancer to see if this may change their decision on variant of uncertain significance versus pathogenic variant. documented in this encounterSNationwide Children's [id number] History of Present illness Narrative* Champ Giles MD - 05/27/2023 10:45 AM EDT Postop visit Patient had an incidentally diagnosed stage II endometrial cancer, underwent completion surgical staging with pelvic and parotic lymph node sampling along with abdominal cytology. She is having a little weakness along the left obturator nerve area but she states it is getting better every day. 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 A. SIGMOID NODULE: - BENIGN FIBROFATTY TISSUE B. CUL-DE-SAC NODULE: - BENIGN FIBROVASCULAR TISSUE WITH ASSOCIATED EVIDENCE OF HEMORRHAGE C. LYMPH NODES, PERIAORTIC, EXCISION: - THREE NEGATIVE LYMPH NODES (0/3) D. LYMPH NODES, PELVIC, EXCISION: - FIVE NEGATIVE LYMPH NODES (0/5) Final Diagnosis A - Peritoneal Washings, Cytology: NO MALIGNANT CELLS IDENTIFIED. Incisions of healed nicely. A) stage II grade 1 endometrial cancer status post surgical excision P) recommend a course of pelvic radiotherapy we will set up with Dr. New Ibrahim in [place]. Patient will most likely also require vaginal brachytherapy which can be done either here at [facility] or at [facility] in [place]. I will see her back every 6 months for the next 5 years for surveillance visits. documented in this [facility]07-26-2023 Telephone encounter Note* Telephone Encounter - TONE Gordillo CNP - 05/15/2023 4:09 PM EDT Spoke with pt and Dr. Giles addressed Lovenox question earlier today. Per pt, she is to finish Lovenox injection and does not need to be on oral blood thinners. All of patient's questions were answered. Pt verbalized understanding, no further questions. [facility] Phone: 1(888) 566-237107-26-2023 Miscellaneous Notes* Telephone Encounter - TONE Gordillo CNP - 05/15/2023 4:09 PM EDT Spoke with pt and Dr. Giles addressed Lovenox question earlier today. Per pt, she is to finish Lovenox injection and does not need to be on oral blood thinners. All of patient's questions were answered. Pt verbalized understanding, no further questions. * Telephone Encounter - Estela Moe - 05/15/2023 12:58 PM EDT Lyssa sent a message earlier today. She is calling in and would like to speak to a nurse about a medication question. documented in this [facility]07-26-2023 Telephone encounter Note* Telephone Encounter - Champ Giles MD - 05/15/2023 3:06 PM EDT Pt called with path [place] [id number] Miscellaneous Notes* Telephone Encounter - Champ Giles MD - 05/15/2023 3:06 PM EDT Pt called with path documented in this encounterSNationwide Children's [id number] Telephone encounter Note* Telephone Encounter - Estela Moe - 05/15/2023 12:58 PM EDT Lyssa sent a message earlier today. She is calling in and would like to speak to a nurse about a medication question. [facility] [id number] Telephone encounter Note* Telephone Encounter - TONE Gordillo CNP - 05/03/2023 3:16 PM EDT Explained to pt the need for lymph node sampling, Pt verbalized understanding, no further questions. [facility] [employer] [facility] Phone: 1(133) 672-156907-14-2023 Miscellaneous Notes* Telephone Encounter - TONE Gordillo CNP - 05/03/2023 3:16 PM EDT Explained to pt the need for lymph node sampling, Pt verbalized understanding, no further questions. * Telephone Encounter - TONE Gordillo CNP - 05/03/2023 12:36 PM EDT Pt aware of CT scan results, [place]. Pt verbalized understanding, no further questions. * Telephone Encounter - TONE Gordillo CNP - 05/03/2023 12:36 PM EDT ----- Message from Champ Giles MD sent at 05/03/2023 11:55 AM EDT ----- Please call patient and let her know that the CT scan showed no evidence of disease. CT scan was done to look for any evidence of metastatic endometrial cancer. ----- Message ----- From: Estela Moe Sent: 05/03/2023 10:41 AM EDT To: Champ Giles MD documented in this encounterSNationwide Children's [id number] Telephone encounter Note* Telephone Encounter - TONE Gordillo CNP - 05/03/2023 12:36 PM EDT Pt aware of CT scan results, [place]. Pt verbalized understanding, no further questions. [facility] [id number] Telephone encounter Note* Telephone Encounter - TONE Gordillo CNP - 05/03/2023 12:36 PM EDT ----- Message from Champ Giles MD sent at 05/03/2023 11:55 AM EDT ----- Please call patient and let her know that the CT scan showed no evidence of disease. CT scan was done to look for any evidence of metastatic endometrial cancer. ----- Message ----- From: Estela Moe Sent: 05/03/2023 10:41 AM EDT To: Champ Giles MD [facility] [id number] Telephone encounter Note* Telephone Encounter - Todd Ramires - 04/25/2023 8:59 AM EDT PAT: 05.07.2023 at 9 am by phone SX: 05.14.2023 at 9 am arrival at 7 am Post op 05.27.2023 at 10:45 am Folder and instructions given. [facility] [id number] Miscellaneous Notes* Telephone Encounter - Jeremikeshia Ramires - 04/25/2023 8:59 AM EDT PAT: 05.07.2023 at 9 am by phone SX: 05.14.2023 at 9 am arrival at 7 am Post op 05.27.2023 at 10:45 am Folder and instructions given. documented in this encounterSNationwide Children's [id number] History of Present illness Narrative* Champ Giles MD - 04/24/2023 10:00 AM EDT HPI: Lyssa Vasquez is a pleasant 67 y.o. female who presents in consultation from Dr. Desean abdi evaluation and management of incidentally diagnosed endometrial cancer. She initiallypresented with postmenopausal bleeding underwent a biopsy that showed complex hyperplasia without atypia. Patient subsequently underwent robotic hysterectomy BSO. Final pathology shows a grade 1 endometrial cancer with invasion of 15 out of 20 mm of the myometrium with no lymph vascular space invasion. Cervical stromal invasion was noted. The patient thereforehas a stage II endometrial cancer. Patient has had genetic testing. This was recently sent off. She has a mother with colon cancer as well as a sister with endometrial cancer. Surprisingly her sister developed a PE and a few daysafter robotic hysterectomy. The patient denies any history herself of PE or DVT. Is currently on prophylactic Lovenox after surgery. She denies any difficulty after surgery. Is here today to discuss options for a stage II endometrial adenocarcinoma. She denies any prior history of surgery in her abdomen. Denies any prior malignancy. Here today with her and her daughter. Past Medical History: Diagnosis Date Anemia Arthritis Back problem Chronic headaches Hypertension Mitral valve prolapse Past Surgical History: Procedure Laterality Date ORTHOPEDIC SURGERY Bilateral OTHER SURGICAL HISTORY excision of pllonidal cyst TOTAL ABDOMINAL HYSTERECTOMY W/ BILATERAL SALPINGOOPHORECTOMY Family History Problem Relation Name Age of Onset Diabetes Mother Colon cancer Mother Hypertension Mother Osteoarthritis Mother Prostate cancer Father Hypertension Father Lupus Sister Fibromyalgia Sister Heart disease Maternal Grandfather Mom with colon cancer in her 60's Social History Socioeconomic History Marital status: Tobacco Use Smoking status: Never Smokeless tobacco: Never Substance and Sexual Activity Alcohol use: Never Drug use: Never Current Outpatient Medications Medication Sig Dispense Refill doxycycline (Vibramycin) 100 MG capsule Take 100 mg by mouth 2 times daily. HYDROcodone-acetaminophen ([place]) 5-325 MG tablet TAKE 1 TABLET BY MOUTH EVERY 6 HOURS NEEDED FOR PAIN FOR FIVE DAYS lisinopril 20 MG tablet potassium chloride CR (Klor-Con M10) 10 MEQ ER tablet Take 10 mEq by mouth daily. Do not crush or chew. Vibegron 75 MG tablet Take 75 mg by mouth. No current facility-administered medications for this visit. Allergies as of 04/24/2023 (No Known Allergies) Review of Systems: Review of Systems Gastrointestinal: Negative for abdominal pain. Hematological: Negative for adenopathy. BP (!) 157/84 Pulse 98 Ht 1.676 m (5' 6) Wt 93.4 kg (206 lb) BMI 33.25 kg/m Physical Exam: Physical Exam Vitals and nursing note reviewed. Exam conducted with a therapy aide present. Constitutional: Appearance: Normal appearance. Cardiovascular: Rate and Rhythm: Normal rate and regular rhythm. Pulmonary: Effort: Pulmonary effort is normal. Breath sounds: Normal breath sounds. Abdominal: General: Abdomen is flat. Palpations: Abdomen is soft. Comments: Well-healed laparoscopic incisions Lymphadenopathy: Upper Body: Right upper body: No supraclavicular adenopathy. Left upper body: No supraclavicular adenopathy. Neurological: Mental Status: She is alert. Psychiatric: Mood and Affect: Mood normal. Behavior: Behavior normal. Several pages of records in the EMR been reviewed to include operative notes pathology reports. Also numerous office records. Labs: No components found for: CBC No components found for: CMP Pathology: : ASSESSMENT/PLAN: Diagnosis Plan 1. Endometrial cancer (CMS/HCC) (HCC) CT abdomen pelvis w contrast Creatinine, Serum Creatinine, Serum Discussed with patient that she has at least a stage II endometrial cancer. We discussed that lymphnode sampling would allow us to rule out lymphatic disease. If the lymph nodes are positive would recommend chemotherapy possibly vaginal brachytherapy as well. On the other hand if the lymph nodes are negative would recommend pelvic radiation therapy alone. I did discuss the risk of major abdominal surgery to include bleeding infection damage to other organs. All the patient's questions were answered and we will move forward with robotic pelvic and parotic lymph node sampling. We will also plan on CT scan of the abdomen and pelvis to rule out evidence of extrauterine disease at this time. Total time spent in evaluation of EMR, coordination of care and counseling with patient was 35 minutes documented in this [facility]04-24-[address] Gomez [facility] February 11, 2023 5:31pm Note Date/Time February 11, 2023 2:1 0pm [facility] Medical Records Department [address] [place] [address] Emergency Department Summary 02/11/23 MR#: [id number] Acct: [id number] Name: LYSSA VASQUEZ Rep #:[id number] : 1955 67 From: Zechariah Gomez MD PCP: Dr. Lex Bryant, DO Status:RE G ER Location: ED HPI History of Present Illness Chief Complaint: Abd Pain Detail of Chief Complaint: Left greater than right lower quadrant pain Informant: patient Onset/Context/Timing Onset: Weeks (Approximately 2 weeks ago) Context: Sudden Onset Timing: Continuous and Waxes and wanes Quality: Crampy Location: Right and left lower quadrant Current Severity: Mild Maximum Severity: Moderate Worsened by: Ingestion of anything Relieved by: Nothing Associated Symptoms Associated Symptoms: Occasional nausea Narrative Narrative: Patient is a 67-year-old woman with history of diverticulosis diagnosed 4 years ago and recent diagnosis of extensive squamous Miguel metaplasia who presents with bilateral lower quadrant abdominal pain worse on the left since biopsy. She does document temperature of 102 on of last week and 104 on Saturday of last week. Patient reports constant pain since onset that is worse with ingestion of anything. She denies dysuria, frequency, urgency or hematuria. Reason for endometrial biopsy was postmenopausal bleeding. She denies low back pain or flank pain. She has had no abdominal surgery. She denies cardiac or respiratory symptoms. Prior similar symptoms: No Recent [facility] Medical History Anemia Arthritis Back problem Chronic headaches Hypertension Mitral valve prolapse Home Medications lisinopril 20 mg-hydrochlorothiazide 12.5 mg tablet 1 tab PO QDAY #90 tabs 03/06/22 [Rx Last Taken Unknown] tolterodine 4 mg capsule,extended release 24 hr (Detrol LA) 8 mg PO QDAY #180 caps 03/06/22 [Rx Last Taken Unknown] hydrocodone-acetaminophen 5-325mg 5mg-325mg 1 tab PO Q6H PRN PRN Pain 5 days #20TABLETS 02/11/23 [Rx Last Taken Unknown] Allergy/AdvReac Type Severity Reaction Status Date / Time No Known Allergies Allergy Verified 02/11/23 13:49 Family History Father Prostate cancer Hypertension Mother Diabetes Colon cancer Hypertension Osteoarthritis Grandfather Heart disease Sister Lupus Fibromyalgia Surgical History History of excision of pilonidal cyst History of orthopedic surgery Social History Smoking Status: Never smoker alcohol intake: never substance use type: does not use caffeine: Yes what type of physical activity do you participate in: walking frequency: 3-4 times per week seatbelt use: always do you feel safe at home: Yes additional social history: -Dony ROS ROS ED Constitutional Constitutional ED: Reports fever(s); Denies chills, subjective, sweats or weightloss Eyes Eyes: Denies blurry vision, change in vision or diplopia ENT ENT ED: Denies ear pain or rhinorrhea Cardiovascular Cardiovascular: Denies chest pain or palpitations Respiratory/Chest Respiratory/Chest: Denies cough, dyspnea or dyspnea on exertion Gastrointestinal Gastrointestinal: Reports abdominal pain and nausea; Denies constipation, diarrhea, melena or vomiting Genitourinary Genitourinary ED: Denies dysuria, hematuria or urinary frequency Musculoskeletal Musculoskeletal: Denies arthralgias, back pain, myalgias or neck pain Integumentary Denies abscess, Abrasions or rash Neurologic Neurologic: Denies headache(s), paresthesias or weakness Psychiatric Psychiatric: Denies anxiety or depression Endocrine Endocrinology: Denies cold intolerance or heat intolerance Hematologic/Lymphatic Hematologic/Lymphatic: Reports systems reviewed and no addt'l complaints, exceptas documented Allergic/Immunologic Allergic/Immunologic ED: Denies mouth swelling or tongue swelling EXAM Physical Exam Const Vital Signs: 02/11/23 13:47 02/11/23 17:23 Temperature 96.9 F L Temperature Source Temporal Pulse Rate 96 87 Respiratory Rate 18 16 Blood Pressure 180/86 H 167/84 H Blood Pressure Mean 117 111 Pulse Ox 98 99 Positive well nourished, well developed and obese General Appearance ED: well developed and NAD; Negative for cyanotic, diaphoretic or pallor Nutritional Appearance: obese HEENT Reports moist mucous membranes HEENT Narrative: Head is atraumatic no cephalic. Ears normal. Nares patent. Mucosa is moist. Eyes PERRL and EOMs intact bilaterally General Eye ED: Negative for pale conjunctiva or scleral icterus Chest Wall inspection of chest normal Resp normal respiratory effort and clear to auscultation bilaterally Cardio regular rate, regular rhythm, S1 normal heart sound, S2 normal heart sound and no murmurs GI normal to inspection, nondistended, normoactive bowel sounds, non-distended and no masses; Negative for non-tender or hepatosplenomegaly Auscultation: hypoactive bowel sounds Palpation: soft and tender LLQ Back/Spine no CVA tenderness Extremity normal to inspection General Extremety ED: Negative for edema or tenderness General Extremity: Negative for edema Neuro oriented x3, CN's II-XII intact bilaterally and no sensory deficits noted Sensorium / Orientation: alert Skin no rashes or lesions noted, no wounds and skin turgor normal Skin Narrative: Patient is to hand. General Skin Exam: Negative for jaundice or pallor MDM MDM MDM Narrative Medical decision making narrative: With history of pain status post biopsy and history of diverticulosis with left lower quadrant pain greater than right need to evaluate for diverticular colitisas well as possible complication from uterine biopsy, which is less likely. This may be related to the metaplasia noted on the endometrial biopsy or the post menopausal bleeding. Since patient has not had recent blood work CBC and BMP were obtained. CT of the abdomen with IV contrast was ordered. Reviewed biopsy report submitted January 29. There is no recent reports noted. Patient does have history of diverticulosis that was documented approximately 4 to 5 years ago. Patient was offered pain medicine which she declined. Patient's blood pressure is elevated will monitor since she is asymptomatic. History & Record Review Additional record(s) reviewed:: Prior outpatient record and Prior labs Lab Data Attestation: I reviewed the patient's lab results. Lab results narrative: CBC is unremarkable. Sodium is 129 with potassium of 2.8 and chloride 93. Patient is not on a diuretic. Creatinine 0.6 with a GFR of 106. UA is unremarkable. Since she is not on a diuretic and has hyponatremia with history of cancer will obtain urine and serum osmolarity. Lactic is normal. Labs: Laboratory Results - last 24 hr 02/11/23 02/11/23 02/11/23 14:20 14:20 14:20 WBC 8.7 RBC 4.43 Hgb 12.5 Hct 36.8 L MCV 83.1 MCH 28.2 MCHC 34.0 RDW Std Deviation 40.8 RDW Coeff of Tae 13.3 Plt Count 339 MPV 9.3 Immature Gran % (Auto) 0.300 Neut % (Auto) 65.1 Lymph % (Auto) 25.4 [place] % (Auto) 8.3 Eos % (Auto) 0.3 Baso % (Auto) 0.6 Absolute Neuts (auto) 5.7 Absolute Lymphs (auto) 2.21 Nucleated RBC % 0 Sodium 129 L Potassium 2.8 L Chloride 93 L Carbon Dioxide 32.0 Anion Gap 4 L BUN 12 Creatinine 0.60 Estim Creat Clear Calc 50.41 Est GFR (MDRD) Af Amer 128 Est GFR (MDRD) Non-Af 106 BUN/Creatinine Ratio 20.1 H Glucose 96 Lactic Acid 0.9 Calcium 9.0 Urine Color Urine Clarity Urine pH Ur Specific Thorp Urine Protein Urine Glucose (UA) Urine Ketones Urine Occult Blood Urine Nitrite Urine Bilirubin Urine Urobilinogen Ur Leukocyte Esterase Urine RBC Urine WBC Ur Squamous Epith Cells Urine Bacteria Urine Mucus 02/11/23 14:30 WBC RBC Hgb Hct MCV MCH MCHC RDW Std Deviation RDW Coeff of Tae Plt Count MPV Immature Gran % (Auto) Neut % (Auto) Lymph % (Auto) [place] % (Auto) Eos % (Auto) Baso % (Auto) Absolute Neuts (auto) Absolute Lymphs (auto) Nucleated RBC % Sodium Potassium Chloride Carbon Dioxide Anion Gap BUN Creatinine Estim Creat Clear Calc Est GFR (MDRD) Af Amer Est GFR (MDRD) Non-Af BUN/Creatinine Ratio Glucose Lactic Acid Calcium Urine Color Yellow Urine Clarity Sl. Cloudy Urine pH 7.0 Ur Specific Thorp 1.005 Urine Protein Negative Urine Glucose (UA) Normal Urine Ketones Negative Urine Occult Blood 10 H Urine Nitrite Negative Urine Bilirubin Negative Urine Urobilinogen Normal Ur Leukocyte Esterase 25 H Urine RBC 0-5 SEEN Urine WBC 0-5 SEEN Ur Squamous Epith Cells 0-5 SEEN Urine Bacteria 0 SEEN Urine Mucus 0 SEEN Radiography Diagnostic Testing: Clinical Impression(s) from Imaging Studies Abdomen/Pelvis CT 02/11/23 13:56 IMPRESSION: (NOT LISTED IN ORDER OF SIGNIFICANCE) Abnormal fluid-filled endometrium. This is concerning for neoplasm. Free fluid in the pelvis. Other findings as above. Electronically Signed: Arsalan Ponce MD at 16:31 EDT Reading Location ID and State: [facility] / [place] , Service support , Treatment and Re-Evaluation :: Case discussed with Dr. Ritu Turner on-call for Dr. Samantha Anton. She will contact Dr. Quintanilla and Alejandro Harding to get patient seen sooner. Discharge Plan Triage Chief Complaint: Abd Pain ED Provider: Zechariah Gomez Dx/Rx/DC Orders Clinical Impression: Acute pelvic pain, female, Abnormal endometrial ultrasound, Acute hyponatremia Instructions: ED Pelvic Pain, Unknown Cause Prescriptions: New hydrocodone-acetaminophen [hydrocodone-acetaminophen] 5-325 mg tablet 1 tab PO Q6H PRN PRN (Reason: Pain) 5 Days Qty: 20 0RF No Action lisinopril-hydrochlorothiazide 20-12.5 mg tablet 1 tab PO QDAY Qty: 90 3RF tolterodine [Detrol LA] 4 mg capsule,extended release 24hr 8 mg PO QDAY Qty: 180 3RF Primary Care Provider: Lex Bryant Referrals: Lxe Bryant, DO [Primary Care Provider] - Disposition Disposition: Home, Self Care What to do if you have Problems For any increased pain, shortness of breath, bleeding, nausea or vomiting, chestpain, or any unexpected problems, contact your Primary Care Provider. Call [facility] ([phone]) or report to the closest Emergency Room. Call 911 if necessary. 02/11/23 1731 <Electronically signed by Zechariah Gomez MD> Cosigner Signature (if applicable): CC: Dr. Lex Bryant, DO ~ Signed [facility] Work Phone: 1(886) 324-333804-11-2023 NotePap Smear Specimen AdequacyApril 2022 5:18pmComment.Satisfactory for evaluation. Endocervical and/or squamous metaplasticcells (endocervical component)are present.[facility] A#[id number] HospitalComment on above:Satisfactory for evaluation. Endocervical and/or squamous metaplasticcells (endocervical component)are present.01-29-2023 NotePap Smear Specimen AdequacyApril 2022 5:18pmComment.Satisfactory for evaluation. Endocervical and/or squamous metaplasticcells (endocervical component)are present.[facility] A#[id number] HospitalComment on above:Satisfactory for evaluation. Endocervical and/or squamous metaplasticcells (endocervical component)are present.01-29-2023 NotePap Smear Specimen AdequacyApril 2022 5:18pmComment.Satisfactory for evaluation. Endocervical and/or squamous metaplasticcells (endocervical component)are present.[facility] A#[id number] HospitalComment on above:Satisfactory for evaluation. Endocervical and/or squamous metaplasticcells (endocervical component)are present.Consult note Author Rashid Sheppard [facility] Note Date/Time January 12, 2025 3:0 9pm [facility] Medical Records Department [address] [place] [address] Anesthesia Postop Eval I 01/12/25 1508 MR#: [id number] Acct: [id number] Name: LYSSA VASQUEZ Rep #:[id number] : 1955 69 From: Rashid Sheppard PCP: Dr. Lex Bryant, DO Status:RE G SDC Y Race: C Location: [place] [address] Anesthesia: Postop Eval I Current Vital Signs Temperature: 97.5 F Pulse Rate: 97 Blood Pressure: 133/67 Respiratory Rate: 16 Pulse Ox: 97 Oxygen Delivery Method: Room Air Assessment Airway patent: Yes Spontaneous unlabored respirations: Yes Mental status: Awake and Calm nausea: No Vomiting: No Anesthesia Complication: No Fluid Hydration Crystalloid volume administer (ml): 30 Total IV fluid infused: 30 Progress Note Anesthesia document: Postop Eval 1 completed: Yes 01/12/25 2574 <Electronically signed by Rashid Sheppard > Date _ Rashid Garciaignlaenne Signature: Date CC: ~ Signed [facility] Work Phone: Evaluation note* Diagnosis Onset Date Resolution Status Hypertension chronic Contact dermatitis due to poison gordon noneactive [facility] Work Phone: Evaluation note* Diagnosis Onset Date Resolution Status DJD (degenerative joint disease) of knee acute Post-menopausal bleeding acu te Hypertension chronic Post-menopausal bleeding acu te [facility] Work Phone: Evaluation note* Diagnosis Onset Date Resolution Status Post-menopausal bleeding acu te Endometrial hyperplasia without atypia, complex acute Endometrial hyperplasia without atypia, complex acute Post-menopausal bleeding acu te Status post hysterectomy acu te Anemia chronic FH: colon cancer chronic DJD (degenerative joint disease) of knee acute Endometrial hyperplasia without atypia, complex acute Hypokalemia acute Post-menopausal bleeding acu te Status post hysterectomy acu te Uterine carcinoma acute Chronic headaches chronic FH: colon cancer chronic Mitral valve prolapse chroni c [facility] Work Phone: Evaluation note* Diagnosis Endometrial cancer (CMS/HCC) (HCC)- Primary Malignant neoplasm of corpus uteri, except isthmus Malignant neoplasm of endometrium (HCC) Malignant neoplasm of corpus uteri, except isthmus [facility] Diagnosis Onset Date Resolution Status Post-menopausal bleeding acu te Endometrial hyperplasia without atypia, complex acute Endometrial hyperplasia without atypia, complex acute Post-menopausal bleeding acu te Status post hysterectomy acu te Anemia chronic FH: colon cancer chronic DJD (degenerative joint disease) of knee acute Endometrial hyperplasia without atypia, complex acute Hypokalemia acute Post-menopausal bleeding acu te Status post hysterectomy acu te Uterine carcinoma acute Chronic headaches chronic FH: colon cancer chronic Mitral valve prolapse chroni c Uterine carcinoma acute Hypertension chronic [facility] Work Phone: Evaluation note* Diagnosis Post-operative state- Primary Other postprocedural status Malignant neoplasm of endometrium (HCC) Malignant neoplasm of corpus uteri, except isthmus [facility] Diagnosis Onset Date Resolution Status Endometrial hyperplasia without atypia, complex acute Endometrial hyperplasia without atypia, complex acute Post-menopausal bleeding acu te Status post hysterectomy acu te Anemia chronic FH: colon cancer chronic DJD (degenerative joint disease) of knee acute Endometrial hyperplasia without atypia, complex acute Hypokalemia acute Post-menopausal bleeding acu te Status post hysterectomy acu te Uterine carcinoma acute Chronic headaches chronic FH: colon cancer chronic Mitral valve prolapse chroni c Uterine carcinoma acute Hypertension chronic [id number] acute [id number] acute [facility] Work Phone: Evaluation note* Diagnosis Malignant neoplasm of endometrium (HCC)- Primary Malignant neoplasm of corpus uteri, except isthmus [facility] Diagnosis Onset Date Resolution Status [id number] acute Breast lump in upper outer quadrant acute [facility] Work Phone: Evaluation note* Diagnosis Onset Date Resolution Status [id number] acute Breast lump in upper outer quadrant acute Breast mass, right acute [facility] Work Phone: Evaluation note* Diagnosis Endometrial cancer (CMS/HCC) (HCC)- Primary Malignant neoplasm of corpus uteri, except isthmus documented [facility] this [facility] Author Patrick Peres [facility] Note Date/Time January 12, 2025 2:4 0pm [facility] Medical Records Department [address] [place] [id number] History & Physical Exam 01/12/25 1438 MR#: [id number] Acct: [id number] Name: LYSSA VASQUEZ Rep #:[id number] : 1955 69 From: Patrick Friend DO PCP: Dr. Lex Bryant, DO Status:[facility] Location: [place] [address] HPI - General General Date of Admission: 01/12/25 Date of Service: 01/12/25 Chief Complaint: lower GI bleeding HPI Narrative LYSSA VASQUEZ, is a 69 F who presents Chief Complaint: rectal bleeding Details: LYSSA VASQUEZ is a 69 F who presents to the office today for LABS 12/17/2024 HGB 11.2 11/26/2024 HGB 10.7 10/15/2024 HGB 10.4 08/24/2024 HGB 9.2 PET 09/15/2024 1. NEGATIVE EXAMINATION. There is no definitive scintigraphic evidence of residual-viable neoplasm. 2. The linear increase in tracer concentration defined in the right anterior chest wall does not fulfill quantitative criteria for neoplasia. 3. Enhanced uptake noted in the right axilla does not fulfill quantitative criteria for malignant transformation. EGD 07/01/2024 ([facility]) - chronic gastritis, neg. H. pylori - Z-line variable. - Erythematous mucosa in the prepyloric region of the stomach. Biopsied. - Erythematous duodenopathy. - Use sucralfate tablets 1 gram PO QID for 2 COLON 07/01/2024 ([facility]) rectal biopsy negative for colitis - Hemorrhoids found on perianal exam. - Non-bleeding external and internal hemorrhoids. - Erythematous mucosa in the rectum. Biopsied. - The examination was otherwise normal. Her family history is notable for a sister with endometrial cancer, brother withprostate cancer and father with colon cancer. ONCOLOGY 12/17/2024 #1- Right breast cancer: Pathologic stage post neoadjuvant therapy II (T1c, N1, M0) 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 Tumor in the breast is ER positive (over 95%, strong) MS positive (64%, moderate to strong) and HER2 overexpressed 3+.Ki- 67 is positive low less than 5%. Whereas that in the pathologically confident metastasis in the right axillary lymph node is ER positive, MS positive and HER2/krysta 2+. Genetic testing (at time of diagnosis was endometrium cancer) was done in 2022 and showed no known deleterious mutation. Received neoadjuvant for 6 cycles of TCHP February?June. Main toxicity reported during neoadjuvant therapy was manageable grade 1 diarrhea and electrolyte disturbances (hypokalemia partly due to prior diuretic use hypophosphatemia and hypomagnesemia), bone marrow toxicity with severe transfusion requiring anemia. Then underwent mastectomy with sentinel lymph node biopsy with residual cancer was found and minimal response to neoadjuvant therapy noted. Started postoperative Kadcyla (Ado-trastuzumab) September 2024. #2- History of endometrium cancer and incidental finding of retroperitoneal cystic mass the nature of which cannot be determined by imaging that included 2 CAT scans and MRI. Patient's past medical history is notable for history of endometrial cancer, stage II (T2, N0, M0) status post robotic total hysterectomy with bilateral salpingo-oophorectomy followed by adjuvant radiation therapy June - July2023. On March 12, 2024 patient underwent cystoscopy, left retrograde pyelogram, left ureteroscopy with left ureteral stent insertion. April 08, [address]-guided biopsy of the mass no malignancy identified but necrotic tissue. June 2024 after the conclusion of neoadjuvant systemic therapy for breast cancer CT scan of the abdomen and pelvis reported a cystic lesion in the retroperitoneal that is decreasing in size. July [facility] oncology follow-up (Dr. Giles): Impression residual cystic lesion in the left periaortic area is most likely a benign lymphoid cyst with very mild residual hydronephrosis. ----Anemia-multifactorial including anemia of cancer and chemotherapy, no evidence for residual iron and B12 deficiency. - she reports a history of hemorrhoids - bleeding is BRB and now passing clots - the bleeding has been more consistent the past 2 weeks - had a hard stool 3 weeks ago - denies any rectal pain - she is experiencing lower abdominal discomfort, like a menstrual cramp - denies any change in discomfort with a BM - stools have been very soft or formed, 3-4 stools daily this is an increase from her typical 2x a day - last week the bleeding was every day - no bleeding today - has had episodes that she is passing just blood - she reports chronic nausea secondary to chemo - denies any HB or emesis - denies any upper abdominal pain - very rare use of NSAIDS - Chemo every 3 weeks - next treatment due 3/20 PFSH Medical History 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 Blood in urine Rectal bleeding Diarrhea due to drug Prerenal azotemia Dysuria Anemia due to chronic blood loss Gastric reflux Acid reflux Edema of both lower legs Mass in the abdomen Hypomagnesemia Diarrhea Encounter for chemotherapy management Abnormal CT of the abdomen Port-A-Cath in place Anxiety Bladder disease History of diverticulitis History of echocardiogram Cancer of right female breast Encounter for education Wears hearing aid Wears glasses Wears contact lenses Post-menopausal Cancer Back pain Migraine headache Non-smoker History of edema History of stress test Cardiology follow-up encounter Hx of vaginal delivery Mitral valve prolapse Chronic headaches Back problem Anemia Arthritis Hypertension Home Medications ?Medication ?Instructions ?Recorded ?Last Taken ?Type vibegron 75 mg tablet (Gemtesa) 75 mg PO DAILY 3 01/12/25 History ibuprofen 200 mg capsule 800 mg PO Q6H PRN pain 03/19 Unknown History loperamide 2 mg capsule (Imodium 2 mg PO Q6H PRN loose stool 04/03/24 08/11/24 History A-D) acetaminophen 500 mg tablet 500 mg PO Q6H PRN pain Unknown History (Tylenol Extra Strength) ondansetron 8 mg disintegrating 8 mg PO Q8H PRN nausea and 08/17/24 Unknown Rx tablet vomiting #20 tabs potassium chloride 20 mEq 20 meq PO BID #60 tabs 11/10 Unknown Rx tablet,extended release(part/cryst) lisinopril 40 mg tablet 40 mg PO DAILY #90 tabs 02/0 05/1401/12/25 07:00 Rx magnesium oxide 400 mg PO TID #90 caps 12/08 Unknown Rx hydrocortisone acetate 25 mg 25 mg MS QHS #12 ea 12/28 Unknown Rx rectal suppository (Anusol-HC) Allergy/AdvReac Type Severity Reaction Status Date / Time No Known Allergies Allergy Verified 01/12/25 13:18 Family History Mother Diabetes Hypertension Osteoarthritis Colon cancer Grandfather Heart disease Sister Lupus Fibromyalgia Sister , December 2022 from post op PE Endometrial cancer Father Cancer prostate. Surgical History H/O right mastectomy History of lymph node dissection of right axilla S/P right mastectomy History of renal stent Hx of cystoscopy Hx of surgical procedure Status post total hysterectomy and bilateral salpingo-oophorectomy S/P cystoscopy Hx of right breast biopsy Hx of colonoscopy History of orthopedic surgery History of excision of pilonidal cyst Social History Smoking Status: Never smoker alcohol intake: never substance use type: does not use caffeine: Yes what type of physical activity do you participate in: walking frequency: 3-4 times per week seatbelt use: always do you feel safe at home: Yes additional social history: -Dony ROS Constitutional Constitutional: Denies fatigue, fever(s), poor appetite, weight gain or weight loss Gastrointestinal Gastrointestinal: Denies belching, bloating, change in bowel habits, change in stool character, chewing difficulty, coffee ground emesis, constipation, cramping, diarrhea, dyspepsia, dysphagia, early satiety, excessive flatus, fecalincontinence, heartburn, hematemesis, hematochezia, hemorrhoids, loose stools, melena, nausea, odynophagia, rectal bleeding, tenesmus, vomiting or weight changes Vital Signs Vital Signs Vital Signs: 01/12/25 13:17 01/12/25 13:17 01/12/25 13:53 Temperature 98.6 F 98.6 F Temperature Source Temporal Pulse Rate 103 H 103 H Respiratory Rate 16 16 Respiratory Pattern Normal Blood Pressure 172/89 H 172/89 H Blood Pressure Mean 116 Blood Pressure Source Monitor Blood Pressure Position Semi-Fowlers Blood Pressure Location Left Arm Pulse Ox 98 98 Oxygen Delivery Method Room Air Room Air Weight Weight: 160 lb 14.999 oz Body Mass Index (BMI) 25.9 Physical Exam Const alert, oriented x3, no apparent distress and healthy appearing General Appearance: cooperative GI normal to inspection, nondistended, normoactive bowel sounds, soft to palpation,non-tender and non-distended Percussion: normal to percussion Rectal Exam: deferred Assessment & Plan Assessment/Plan (1) BRBPR (bright red blood per rectum): PLAN: Assessment and Plan Assessment and Plan (1) Rectal bleeding: Status: Acute (2) Abdominal pain: Status: Acute (3) FH: colon cancer: Status: Chronic Comment: M dx age 59 (4) Anemia: Status: Chronic (5) Hemorrhoid: Status: Acute Orders: Orders Colonoscopy Today K62.5 - Hemorrhage of anus and rectum, R10.33 - Periumbilicalpain Medications: New hydrocortisone acetate (Anusol-HC) Sitz bath prior to insertion 25 mg MS QHS 12 ea 0RF Plan 69y/o female presents for consultation with complaints of rectal bleeding. She reports she is experiencing BRBPR and blood clots QD-QOD for the past 2-3 weeks.She reports she typically has diarrhea or soft stools, but did have one hard stool three weeks ago. She denies any rectal pain but is experiencing lower abdominal discomfort. Frequency of stools has increased form 2-4x a day. Colonoscopy revealed internal and external hemorrhoids June 2024. She is currently receiving chemo every 3 weeks for treatment of breast cancer. Labs completed one week ago showed an improvement in HGB. Rectal exam reveals a GradeIV hemorrhoid with ulceration. I recommend sitz baths and anusol suppositories for the next 12 days. I have scheduled her for a Sigmoidoscopy to evaluate for any other causes of bleeding. She will keep us apprised of her symptoms. Patient Instructions: Sitz bath and Anusol supp. x12 days Contact office with any increase in bleeding or pain Labs as planned on 01/07/2025 with oncology 01/12/25 1440 <Electronically signed by Patrick Peres DO> Cosigner Signature (if applicable): CC: Dr. Lex Bryant, ; Patrick Peres DO~ Signed [facility] Work Phone: Progress note Author Capo Xiong [facility] Note Date/Time July 30, 2025 9 :38am [facility] [address] [place], [place] [address]. [address] [place] [address] OFFICE VISIT Date of Service: 07/30/25 MR#: [id number] Acct: [id number] Name: LYSSA VASQUEZ Rep #: [id number] : 1955 Provider: Dr. Melissa Xiong MD Age/Sex: 69/F Location: [facility] Status: Signed HPI HPI History of Present Illness Details: Pleasant 69-year-old lady with a history of endometrial cancer status post robotic total hysterectomy with bilateral salpingo-oophorectomy followed by adjuvant radiation therapy in JuneJuly 2023. More recently she had in January 2024 a diagnostic mammogram which demonstrated a palpable lump and she underwent core biopsy of the above and was consistent with an invasive ductal carcinoma ER positive MS positive HER2/krysta positive. She was discussed at tumorboard and it was decided that she will begin neoadjuvant therapy with TCHP. There was residual cancer at the time of definitive surgery and the advice was for her to go on Kadcyla which she is going to do for 14 cycles. She has tolerated it so far. She denies any chest pain or shortness of breath or paroxysmal nocturnal dyspnea or pedal edema she had an EKG in March of last year demonstrating sinus rhythm with a rate of 81 bpm and a stress test in 2019 demonstrating no evidence of ischemia at a moderate workload. She did have a hypertensive response to exercise. She has had occasional cramps and then sharpchest pain. Physical exam today is unremarkable. 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: No Accompanied by: Self Is patient in pain?: No Allergies No Known Allergies Allergy (Verified 07/30/25 09:06) Medications ?Medication ?Instructions ?Recorded ?Confirmed ?Type vibegron 75 mg tablet (Gemtesa) 75 mg PO DAILY 3 07/29/25 History acetaminophen 500 mg tablet 500 mg PO Q6H PRN pain 07/29/25 History (Tylenol Extra Strength) lisinopril 40 mg tablet 40 mg PO DAILY #90 tabs 05/1407/29/25 Rx amlodipine 5 mg tablet 5 mg PO QDAY #90 tabs 07/30/25 Rx Have you fallen in the past year?: No PFSH Medical History HER2-positive carcinoma of breast Generalized weakness 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 Blood in urine Rectal bleeding Diarrhea due to drug Prerenal azotemia Dysuria Anemia due to chronic blood loss Gastric reflux Acid reflux Edema of both lower legs Mass in the abdomen Hypomagnesemia Diarrhea Encounter for chemotherapy management Abnormal CT of the abdomen Port-A-Cath in place Anxiety Bladder disease History of diverticulitis History of echocardiogram Cancer of right female breast Encounter for education Wears hearing aid Wears glasses Wears contact lenses Post-menopausal Cancer Back pain Migraine headache Non-smoker History of edema History of stress test Cardiology follow-up encounter Hx of vaginal delivery Mitral valve prolapse Chronic headaches Back problem Anemia Arthritis Hypertension Surgical History History of lymph node dissection of right axilla S/P right mastectomy History of renal stent Hx of cystoscopy Hx of surgical procedure Status post total hysterectomy and bilateral salpingo-oophorectomy S/P cystoscopy Hx of right breast biopsy Hx of colonoscopy History of orthopedic surgery History of excision of pilonidal cyst Family History Mother Diabetes Hypertension Osteoarthritis Colon cancer Grandfather Heart disease Sister Lupus Fibromyalgia Sister , December 2022 from post op PE Endometrial cancer Father Cancer prostate. Social History Smoking Status: Never smoker alcohol intake: never substance use type: does not use caffeine: Yes what type of physical activity do you participate in: walking frequency: 3-4 times per week seatbelt use: always do you feel safe at home: Yes additional social history: -Dony ROS Const Const: Positive for fatigue (easily tired); Negative for body ache, fever(s) or chills ENT ENT: Negative for dizziness or Nosebleed/epistaxis Cardio Chest Pain: No Palpitations: No Edema: None Muscle aches with walking: None Resp Respiratory: Negative for SOB with activity, SOB at rest, SOB orthopnea\SOB lying down, Cough or paroxysmal nocturnal dyspnea GI GI: Positive for nausea (intermittent nausesa, with dry heaves, ) and bright, red blood in stools; Negative black,tarry stools or loose stools : Negative for hematuria or frequent nighttime urination/ nocturia Musc Musc: Negative for muscle aches/ myalgia Skin Skin: Negative non-healing lesions Neuro Neuro: Negative for dizziness, lightheadedness, near syncope, syncope or orthostatic symptoms Endo Endo: Positive for fatigue (easily tired) Cardiology Exam Const Appearance: cooperative, healthy appearing, no acute distress, well developed and well groomed Nutritional Appearance: average body habitus and well nourished Orientation: alert, awake and oriented x3 Head Head: normal to inspection, normocephalic and atraumatic Ears: hearing grossly normal bilaterally and external ears normal Nose: external nose normal, nares normal, nasal mucous membranes and turbinates normal, septum normal and no nasal discharge Face and Sinus: face symmetric Mouth: oral mucosae normal, tongue normal, oropharynx normal and moist mucous membranes Teeth and gingiva: dentition normal Throat: posterior oropharynx normal, tonsils normal and uvula midline Eyes General: appearance normal, both eyes and all related structures Eyelids: eyelids normal Conjunctivae: conjunctivae normal Pupils: PERRL, normal by confrontation and accommodation normal EOM: EOM intact bilaterally Neck Neck: normal visual inspection, trachea midline and no JVD JVD: +5 Carotids: normal carotid upstroke and bounding pulses Chest Chest inspection: normal inspection of the chest, symmetric chest movement and normal respiratory effort Auscultation: Bilateral: Clear to Auscultation Cardio Palpation: normal PMI Rate: regular rate Rhythm: regular rhythm Heart sounds: S1 normal, S2 normal and normal, physiologic split S2; Negative rub, gallop or murmur GI GI: normal to inspection, soft, no hepatosplenomegaly and bowel sounds present Neuro General: patient alert, patient awake, patient oriented x3, gait normal, moves all extremities and no focal sensory deficit Skin Skin: no rashes or lesions noted Extremities Pulses: Normal: Right Femoral Pulse, Left Femoral Pulse, Right Dorsalis Pedis Pulse, Left Dorsalis Pedis Pulse, Right Posterior Tibial Pulse, Left Posterior Tibial Pulse, Right Radial Pulse and Left Radial Pulse Lower Extremity Edema: None: Bilateral Musculoskel Musculoskeletal: No joint tenderness Psych Psychological: normal affect Supplemental Info Supplemental Information Labs: LDL Cholesterol, (0-130) 97 mg/dL HDL Cholesterol, (40-) 80 mg/dL Cholesterol, (200) 190 mg/dL Triglycerides, (-199) 65 mg/dL Diagnostics: Electrocardiogram Echocardiogram Stress Test Chest X-Ray Abdomen/Pelvis CT Venous Doppler Study Past Visits: Cardiology Visit Today Assessment and Plan Assessment and Plan (1) International Federation of Gynecology and Obstetrics (FIGO) stage II malignant neoplasm of endometrium: Status: Acute Plan: She has recently been diagnosed with endometrial cancer and she continues to be followed up by [facility] and urology. She has done well with regard to the above. (2) Breast cancer: Status: Acute Plan: She does have a history of invasive ductal right breast carcinoma and is currently undergoing neoadjuvant chemotherapy. Her last echocardiogram demonstrated ejection fraction of 65% with a global global longitudinal strain score of 18.8. She will continue on the current medical therapy with the Kadcyla. . (3) Hypertension: Status: Chronic Qualifiers: Hypertension type: primary hypertension Qualified Code(s): I10 - Essential (primary) hypertension Comment: CONTROLLED WITH MED Plan: Her blood pressure appears to be under good control. However she has had hypokalemia as well as hypomagnesemia and therefore I will recommend that we discontinue the hydrochlorothiazide portion and put her on lisinopril and increase the dose to 40 mg a day. Would recommend the addition of amlodipine 5 mg a day to her regimen. She will get blood work checked through her oncology visit. 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) Coding Level of Care Code Off vis,est,level 4 Diagnoses International Federation of Gynecology and Obstetrics (FIGO) stage II malignant neoplasm of endometrium C54.1 Breast cancer C50.919 Primary hypertension I10 Hypertension type: primary hypertension Coding Level of Care Code Off vis,est,level 4 Diagnoses International Federation of Gynecology and Obstetrics (FIGO) stage II malignant neoplasm of endometrium C54.1 Breast cancer C50.919 Primary hypertension I10 Hypertension type: primary hypertension Clinical Quality Measures Falls Risk Screening/Assistive Devices Have you fallen in the past year?: No 07/30/25 0938 <Electronically signed by Capo Frias D> Date _ Capo Xiong MD Cosigner Signature: Date (if applicable) CC: ~ [facility] Work Phone: Progress note Author Em Torres [facility] Note Date/Time August 05, 2025 4 :07pm [facility] [address] [place] [address]. [place] [address] OFFICE VISIT Date of Service: 08/05/25 1501 MR#: [id number] Acct: [id number] Name: LYSSA VASQUEZ Rep #: [id number] : 1955 From: Em jara MD Age/Sex: 69/F Location: [facility] Status: Signed HPI Subjective Date of Service 08/05/25 Chief Complaint Breast cancer History of Present Illness 69-year-old female with: 1. Right breast cancer: She presented after a self palpated painless lump in the right breast. She has been compliant with annual screening mammography and that of January 2023 showed no suspicious abnormalities. Her family history is notable for a sister with endometrial cancer, brother withprostate cancer and father with colon cancer. In 2022 after the diagnosis of endometrial cancer she underwent a comprehensive genetic testing and no known deleterious mutation was detected. January 30, 2024 diagnostic mammogram: IMPRESSION: The palpable lump corresponds to 1.3 cm x 1.3 cm spiculated nodule in the slightly upper retroareolar region of the right breast. January 30, 2024 diagnostic ultrasound: IMPRESSION: 1.6 cm x 1.6 cm x 1.6 cm complex heterogeneous necrotic mass at the 10:00 position of the breast at 2 cm from nipple. February 11, 2024 Right breast mass, 10 o?clock, 2.0cm, core biopsy: Invasive ductal carcinoma. See cancer summary in comment section. JOSUE/ 02/13/2024 COMMENT INVASIVE BREAST CANCER SUMMARY: Procedure: Needle core biopsy Specimen Laterality: Right Tumor site: 10 o?clock, 2.0cm Histologic type: Invasive ductal carcinoma Provisional Histologic grade (Portia Grade): Tubule Differentiation Score: 2 Nuclear Pleomorphism Score: 2 Mitotic Rate Score: 1 Overall grade: 1 (score of 5) Tumor Size (greatest dimension): 0.9cm in greatest length Ductal Carcinoma Insitu: Present, focal Architectural Pattern: Cribriform Nuclear Grade: 2 (intermediate) Necrosis: Not identified Angiolymphatic Invasion: not identified. Microcalcifications: Not identified Additional Findings: Immunohistochemistry ([id number]) supports the above diagnosis. ER: positive (>95%, strong intensity) MS: positive (64%, moderate to strong intensity) Her-2 krysta: positive (3+) March 17, 2024 Right axillary lymph node, core biopsy: Metastatic carcinoma consistent with breast primary. RESULTS: ANTIBODY / CLONE RESULT P53 (DO-7) positive, wild type pattern Ki-67 (30-9) positive, 25% CK8 (02jqxsN15) positive CK5-6 (D5 & 1684) negative Calponin-1 (XT555U) negative P40 (BC28) negative E-Cad (ECH-6) positive MOC-31 (4561) positive, dim MORPHOMETRIC ANALYSIS ER (clone 6F11) >95% MS (clone 16/1E2) >95% Her-2Neu (clone CB11) 2+ IN SITU HYBRIDIZATION (DERREK) FOR HER2 Interpretation: Not Amplified 2. A cystic mass in the retroperitoneum incidentally found on imaging in February 2024: Patient's past medical history is notable for history of endometrial cancer, stage II (T2, N0, M0) status post robotic total hysterectomy with bilateral salpingo-oophorectomy followed by adjuvant radiation therapy June - July2023. March 06, 2024 CT abdomen and pelvis: IMPRESSION: Moderate left hydronephrosis and ureteral dilatation to the mid ureter where there is a focal dilatation of the ureter with a decompressed distal ureter and no obstructing stone. Significant stranding of the perinephric fat and clinical correlation is recommended to exclude pyelonephrosis.. March 10, 2024 CT abdomen and pelvis with and without contrast: IMPRESSION: Originally thought to be part of the dilated left ureter is a cystic mass projecting between the left common iliac artery and the psoas muscle measuring 4.2 x 2.7 x 2.7 cm which is likely responsible for obstructing the left ureter at this level. The fluid density measures simple fluid on Hounsfield units. This could represent a necrotic lymph node or retroperitoneal fibrosis with pseudocyst formation or desmoid reaction due to sequela from radiation therapy March 12, 2024 cystoscopy, left retrograde pyelogram, left ureteroscopy with left ureteral stent insertion. March 27, 2024 abdomen MRI: IMPRESSION: Cystic lesion within the retroperitoneum which may represent urinoma, lymphocele/lymphangioma, cystic mesothelioma or neoplasm. April 08, 2024 CT-guided biopsy of abdominal mass: Retroperitoneal mass, CT guided core biopsy: Fat necrosis and fibrosis. Skeletal muscle tissue with reactive and focal degenerative change. No evidence of malignancy July 17, 2024 CT abdomen and pelvis: IMPRESSION: 1. Decreasing size of the cystic lesion of the retroperitoneum. 2. Interval decompression of the left hydronephrosis and hydroureter with placement of a double-J ureteral stent catheter. July 22, 2024 [facility] oncology follow-up (Dr. Giles): Impression residual cysticlesion in the left periaortic area is most likely a benign lymphoid cyst with very mild residual hydronephrosis. August 11, 2024: Right breast mastectomy with sentinel lymph node biopsy: FROZEN SECTION DIAGNOSIS A. Right axillary sentinel lymph node, biopsy: One out of three lymph nodes, positive for macrometastatic carcinoma. AM.mr 08/11/2024 MICROSCOPIC DIAGNOSIS A. Right axillary sentinel lymph node, biopsy: One out of three lymph nodes, positive for macrometastatic carcinoma. See comment. B. Right breast, mastectomy: Invasive ductal carcinoma. See cancer summary in the comment section. C. Right axillary lymph node, regional dissection: Fifteen out of fifteen lymph nodes, negative for metastatic carcinoma. See comment. SJ.mr 08/14/2024 COMMENT A. The largest metastatic focus of measures 0.8 x 0.3cm. Extranodal extension isnot seen. The lymph nodes are negative for metastatic carcinoma on multiple H & E levels and immunohistochemical stains for cytokeratins ([id number], BLOCK A1). C. Immunohistochemistry ([id number]) supports the above diagnosis. (A1 to A3) B. BREAST CANCER SUMMARY Procedure - Mastectomy Specimen laterality - Right Invasive tumor: Tumor site ? 10o?clock, 2cm from nipple, as per clinical information Tumor size ? 1.5 x 1.2 x 1.0 cm Histologic type ? Invasive ductal carcinoma, not otherwise specified Histologic grade (Alix grade): Glandular/tubular differentiation score - 2 Nuclear pleomorphism score - 2 Mitotic count score - 1 Overall grade - grade 1 (score of 5) Tumor focality ? Single focus of invasive carcinoma Ductal carcinoma in situ - Present Negative for extensive intraductal component (EIC). Size (extent) of DCIS ? Ductal carcinoma in situ consists of <5% of the total tumor involved Number of blocks with DCIS - 1 Number of blocks examined - 12 Architectural pattern - Cribriform Nuclear grade - grade 2 (intermediate) Necrosis ? Not identified Lobular carcinoma in situ ? Not identified Tumor extension: Skin ? Present and not involved Nipple ? Ductal carcinoma does not involve nipple epidermis Skeletal muscle ? Skeletal muscle is not present Margins: Margins are free of invasive ductal carcinoma and ductal carcinoma in situ are 4.5cm away from the closest posterior margin Regional lymph nodes: Number of lymph nodes examined - 18 Number of sentinel lymph nodes examined - 3 Number of lymph nodes with macrometastases - 1 Number of lymph nodes with micrometastases or isolated tumor cells - 0 Size of largest metastatic deposits ? 0.8 x 0.3cm (measured microscopically) Extranodal extension ? Not identified Distal metastases- Not applicable Treatment effect ? In the breast- Minimal response to presurgical therapy in the invasive carcinoma, In the lymph node- No definite response to presurgical therapy in the metastaticcarcinoma. Lymph vascular invasion ? Not identified Dermal lymph vascular invasion ? Not identified Ancillary Studies: Previously performed on same tumor ([id number] / [id number]) ER: positive (>95%, strong intensity) MS: positive (64%, moderate to strong intensity) Ehj7gin: positive (3+) Microcalcifications ? Present in the invasive carcinoma and non-neoplastic tissue PATHOLOGIC STAGE: pT1c (y) pN1a pMx February 12, 2025 CT chest: Lungs and Airways: Increased linear markings with areas of confluence in the anterior aspect of the right upper lobe suggestive of post radiation fibrosis/pneumonitis. The changes extend into the anterior aspect of the right middle lobe. There is a 5.75 mm nodule in the anterior aspect of the right lower lobe as seen on axial image number 83 this most likely represents focal area of scarring. February 12, 2025 CT abdomen and pelvis: IMPRESSION: Further decrease in size with almost complete resolution of the previously seen left retroperitoneal soft tissue density. Stable left hydronephrosis and left hydroureter. Circumferential wall thickening of the rectum. July 30, 2025 CT chest abdomen and pelvis restaging at end of adjuvant therapy: IMPRESSION: No evidence of active disease in the chest. The previously described periaortic mass is no longer visualized. There is similar left-sided hydroureteronephrosis and new right-sided pelvicalyceal dilatation of uncertain significance. Free fluid which has increased slightly compared with the previous study. Uncertain etiology. Similar concentric rectal wall thickening. August 04, 2025 bone scan restaging at the end of adjuvant therapy: IMPRESSION: No scintigraphic evidence of osseous metastatic disease. Treatment summary and response: * Neoadjuvant TCHP: March 19, 2024-July 02, 2024 (6 cycles). * Mastectomy with sentinel lymph node biopsy August 11, 2024. * Kadcyla (Ado- trastuzumab) September 2024?June 2025 (14 cycles) * Adjuvant radiation therapy to right breast and axilla September 2024. 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 Blood in urine Rectal bleeding Diarrhea due to drug Prerenal azotemia Dysuria Anemia due to chronic blood loss Gastric reflux Acid reflux Edema of both lower legs Mass in the abdomen Hypomagnesemia Diarrhea Encounter for chemotherapy management Abnormal CT of the abdomen Port-A-Cath in place Anxiety Bladder disease History of diverticulitis History of echocardiogram Cancer of right female breast Encounter for education Wears hearing aid Wears glasses Wears contact lenses Post-menopausal Cancer Back pain Migraine headache Non-smoker History of edema History of stress test Cardiology follow-up encounter Hx of vaginal delivery Mitral valve prolapse Chronic headaches Back problem Anemia Arthritis Hypertension Surgical History History of lymph node dissection of right axilla S/P right mastectomy History of renal stent Hx of cystoscopy Hx of surgical procedure Status post total hysterectomy and bilateral salpingo-oophorectomy S/P cystoscopy Hx of right breast biopsy Hx of colonoscopy History of orthopedic surgery History of excision of pilonidal cyst Family History Mother Diabetes Hypertension Osteoarthritis Colon cancer Grandfather Heart disease Sister Lupus Fibromyalgia Sister , December 2022 from post op PE Endometrial cancer Father Cancer prostate. Social History Smoking Status: Never smoker alcohol intake: never substance use type: does not use caffeine: Yes what type of physical activity do you participate in: walking frequency: 3-4 times per week seatbelt use: always do you feel safe at home: Yes additional social history: -Dony ROS Constitutional Constitutional: Reports systems reviewed and no addt'l complaints, except as documented and other Details: Able to do ADL at own. ; Denies fever(s) or weight loss Eyes Eyes: Reports systems reviewed and no addt'l complaints, except as documented ENT HEENT: Reports systems reviewed and no addt'l complaints, except as documented; Denies mouth lesions Cardiovascular Cardiovascular: Reports systems reviewed and no addt'l complaints, except as documented; Denies chest pain with activity or edema Respiratory/Chest Respiratory/Chest: Reports systems reviewed and no addt'l complaints, except as documented; Denies cough or dyspnea on exertion Gastrointestinal Gastrointestinal: Reports systems reviewed and no addt'l complaints, except as documented, hematochezia and other Details: Rectal bleeding is less on treatmentfor proctitis ; Denies diarrhea, melena or nausea Genitourinary Genitourinary: Reports systems reviewed and no addt'l complaints, except as documented; Denies hematuria Musculoskeletal Musculoskeletal: Reports systems reviewed and no addt'l complaints, except as documented; Denies back pain Integumentary Integumentary: Reports systems reviewed and no addt'l complaints, except as documented; Denies new lesions Neurologic Neurologic: Reports systems reviewed and no addt'l complaints, except as documented and paresthesias RLE and LLE; Denies focal weakness or weakness Psychiatric Psychiatric: Reports systems reviewed and no addt'l complaints, except as documented Endocrine Endocrinology: Reports systems reviewed and no addt'l complaints, except as documented Hematologic/Lymphatic Hematologic/Lymphatic: Reports systems reviewed and no addt'l complaints, exceptas documented Allergic/Immunologic Allergic/Immunologic: Reports systems reviewed and no addt'l complaints, except as documented Intake Vital Signs 06/24/25 10:32 08/05/25 15:02 08/05/25 15:06 Height 5 ft 6 in 5 ft 6 in 5 ft 6 in Weight: 73.482 kg BMI 26.1 BP 149/76 H Blood Pressure Location Lt brachial Position Sitting Respiration 18 Pulse 84 Pulse Source Monitor Temp 97.9 F Temperature Source Temporal Artery Pulse Oximetry (%) 98 Oxygen Delivery Method room air Intake Is patient in pain?: No Allergies No Known Allergies Allergy (Verified 08/05/25 15:05) Medications ?Medication ?Instructions ?Recorded ?Confirmed ?Type vibegron 75 mg tablet (Gemtesa) 75 mg PO DAILY 3 08/05/25 History acetaminophen 500 mg tablet 500 mg PO Q6H PRN pain 08/05/25 History (Tylenol Extra Strength) lisinopril 40 mg tablet 40 mg PO DAILY #90 tabs 05/1408/05/25 Rx Held on 08/03/25. Instructions: per order, taking only Amlodipine amlodipine 5 mg tablet 5 mg PO QDAY #90 tabs 08/05/25 Rx Have you fallen in the past year?: No Central Venous Access Central Venous Access: Yes Port/PICC: Port CBC, CMP August 05, 2025 reviewed in EMR Exam Physical Exam Narrative ECOG 1 Const alert, oriented x3 and no apparent distress Coding Level of Care Code Off vis,est,level 4 Exam Problem Focused Diagnoses Malignant neoplasm of right breast in female, estrogen receptor positive, unspecified site of breast C50.911; Z17.0 Breast location: unspecified site of breast Estrogen receptor status: positive Regional lymph node metastasis present C77.9 Anemia D64.9 Iron deficiency anemia type: chronic blood loss Assessment and Plan Assessment and Plan (1) Cancer of right female breast: Status: Chronic Qualifiers: Breast location: unspecified site of breast Estrogen receptor status: positive Qualified Code(s): C50.911 - Malignant neoplasm of unspecified site ofright female breast; Z17.0 - Estrogen receptor positive status [ER+] (2) Regional lymph node metastasis present: Status: Chronic (3) Anemia: Status: Chronic Qualifiers: Iron deficiency anemia type: chronic blood loss Orders: Orders CBC W/Diff, Automated 10/28/25 C50.911 - Malignant neoplasm of unspecified site of right female breast, C50.919 - Malignant neoplasm of unspecified site of unspecified female breast, C77.9 - Secondary and unspecified malignant neoplasm of lymph node, unspecified, D50.0 - Iron deficiency anemia secondary to blood loss (chronic), D64.9 - Anemia, unspecified, Z17.31 - 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 Comprehensive Metabolic Profil 10/28/25 C50.911 - Malignant neoplasm of unspecified site of right female breast, C50.919 - Malignant neoplasm of unspecified site of unspecified female breast, C77.9 - Secondary and unspecified malignant neoplasm of lymph node, unspecified, D50.0 - Iron deficiency anemia secondary to blood loss (chronic), D64.9 - Anemia, unspecified, Z17.0 - Estrogen receptor positive status [ER+], Z17.31 - 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 Ferritin 10/28/25 C50.911 - Malignant neoplasm of unspecified site of right female breast, C50.919 - Malignant neoplasm of unspecified site of unspecified female breast, C77.9 - Secondary and unspecified malignant neoplasm of lymph node, unspecified, D50.0 - Iron deficiency anemia secondary to blood loss (chronic), D64.9 - Anemia, unspecified, Z17.0 - Estrogen receptor positive status [ER+], Z17.31 - 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 Iron+Iron Binding Capacity 10/28/25 C50.911 - Malignant neoplasm of unspecified site of right female breast, C50.919 - Malignant neoplasm of unspecified site of unspecified female breast, C77.9 - Secondary and unspecified malignant neoplasm of lymph node, unspecified, D50.0 - Iron deficiency anemia secondary to blood loss (chronic), D64.9 - Anemia, unspecified, Z17.0 - Estrogen receptor positive status [ER+], Z17.31 - 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 Dexa Bone Density Study 08/12/25 C50.911 - Malignant neoplasm of unspecified site of right female breast, C77.9 - Secondary and unspecified malignant neoplasm of lymph node, unspecified, Z17.0 - Estrogen receptor positive status [ER+], Z78.0 - Asymptomatic menopausal state Plan 69-year-old female with #1- Right breast cancer: Pathologic stage post neoadjuvant therapy II (T1c, N1, M0) 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 Tumor in the breast is ER positive (over 95%, strong) MS positive (64%, moderate to strong) and HER2 overexpressed 3+.Ki- 67 is positive low less than 5%. Whereas that in the pathologically confirmed metastasis in the right axillary lymph node is ER positive, MS positive and HER2/krysta 2+. Genetic testing (at time of diagnosis was endometrium cancer) was done in 2022 and showed no known deleterious mutation. * Received neoadjuvant for 6 cycles of TCHP February?June. Main toxicity reported during neoadjuvant therapy was manageable grade 1 diarrhea and electrolyte disturbances (hypokalemia partly due to prior diuretic use hypophosphatemia and hypomagnesemia), bone marrow toxicity with severe transfusion requiring anemia. * Then underwent mastectomy with sentinel lymph node biopsy with residual cancer was found and minimal response to neoadjuvant therapy noted. * Received postoperative Kadcyla (Ado-trastuzumab) September 2024?June 2025. * She also received adjuvant radiation therapy to the right breast and axilla September 2024. Imaging by CT scan of the chest abdomen and pelvis January 2025 shows some nonspecific right upper lobe changes possible inflammatory postradiation and a nonspecific 5.75 mm nodule in the right lower lobe. #2- History of endometrium cancer and incidental finding of retroperitoneal cystic mass the nature of which cannot be determined by imaging that included 2 CAT scans and MRI. Patient's past medical history is notable for history of endometrial cancer, stage II (T2, N0, M0) status post robotic total hysterectomy with bilateral salpingo-oophorectomy followed by adjuvant radiation therapy June - July 2023. On March 12, 2024 patient underwent cystoscopy, left retrograde pyelogram, left ureteroscopy with left ureteral stent insertion. April 08, [address]-guided biopsy of the mass no malignancy identified but necrotic tissue. June 2024 after the conclusion of neoadjuvant systemic therapy for breast cancer CT scan of the abdomen and pelvis reported a cystic lesion in the retroperitoneal that is decreasing in size. July [facility] oncology follow-up (Dr. Giles): Impression residual cystic lesion in the left periaortic area is most likely a benign lymphoid cyst with very mild residual hydronephrosis. Chronic comorbid conditions: Mitral valve prolapse, hypertension, nonspecific arthritis, history of endometrial carcinoma status post total hysterectomy with bilateral salpingo-oophorectomy followed by adjuvant radiation therapy in 2022. Plan: Based on NCCN guidelines and up-to-date review of management of early- stage invasive ductal cancer of the breast with intent to cure: 1. Start adjuvant hormonal therapy with aromatase inhibitor for at least 5 years. 2. She completed adjuvant radiation therapy to the right breast. 3. Regarding the endometrium cancer the patient will continue to be followed by [facility] and urology. The ureteric stent was removed July 2024, and since then abdominal pain and hematuria improved. 4. Anemia-multifactorial including anemia of cancer and chemotherapy, no evidence for residual iron and B12 deficiency. 5. Elective imaging as clinically indicated. 6. Rectal bleeding, proctitis under the care of GI, Dr. Peres. 7. Noted hypokalemia August 05, 2025, will prescribe oral potassium for 3 days and then patient is to follow-up with PCP. Patient was seen with her family. Impression and plan discussed. Em Torres MD Chief Dispatcher, [facility] Divisions of Medical Oncology & Hematology Department of Internal Medicine [place] [address] This note was generated using a voice recognition system software. Although it was reviewed by the author prior to finalization, it may still contain incorrect words, spelling, and punctuation that were not noted when reviewing prior to saving. If a clinically significant typo or inaccurately typed phrase is noted, please notify the author. Clinical Quality Measures Falls Risk Screening/Assistive Devices Have you fallen in the past year?: No 08/05/25 1612 <Electronically signed by Em mcelroy MD> Date _ Em Torres MD Cosigner Signature: Date (if applicable) CC: ~ [facility] Work Phone: Progress note Author Alley Win [facility] Note Date/Time August 10, 2025 5 :38pm [facility] [place] [address] OFFICE VISIT Date of Service: 08/10/25 1540 MR#: [id number] Acct: [id number] Name: LYSSA VASQUEZ Rep #: [id number] : 1955 From: Alley Baez DIALYSIS CHIEF EQUIPMENT TECHNICIAN DIALYSIS CHIEF EQUIPMENT TECHNICIAN-C Age/Sex: 69/F Location: [facility] Status: Signed HPI Subjective Date of Service 08/10/25 Chief Complaint Breast cancer History of Present Illness 69-year-old female with: 1. Right breast cancer: She presented after a self palpated painless lump in the right breast. She has been compliant with annual screening mammography and that of January 2023 showed no suspicious abnormalities. Her family history is notable for a sister with endometrial cancer, brother withprostate cancer and father with colon cancer. In 2022 after the diagnosis of endometrial cancer she underwent a comprehensive genetic testing and no known deleterious mutation was detected. January 30, 2024 diagnostic mammogram: IMPRESSION: The palpable lump corresponds to 1.3 cm x 1.3 cm spiculated nodule in the slightly upper retroareolar region of the right breast. January 30, 2024 diagnostic ultrasound: IMPRESSION: 1.6 cm x 1.6 cm x 1.6 cm complex heterogeneous necrotic mass at the 10:00 position of the breast at 2 cm from nipple. February 11, 2024 Right breast mass, 10 o?clock, 2.0cm, core biopsy: Invasive ductal carcinoma. See cancer summary in comment section. SJ/mr 02/13/2024 COMMENT INVASIVE BREAST CANCER SUMMARY: Procedure: Needle core biopsy Specimen Laterality: Right Tumor site: 10 o?clock, 2.0cm Histologic type: Invasive ductal carcinoma Provisional Histologic grade (Alix Grade): Tubule Differentiation Score: 2 Nuclear Pleomorphism Score: 2 Mitotic Rate Score: 1 Overall grade: 1 (score of 5) Tumor Size (greatest dimension): 0.9cm in greatest length Ductal Carcinoma Insitu: Present, focal Architectural Pattern: Cribriform Nuclear Grade: 2 (intermediate) Necrosis: Not identified Angiolymphatic Invasion: not identified. Microcalcifications: Not identified Additional Findings: Immunohistochemistry ([id number]) supports the above diagnosis. ER: positive (>95%, strong intensity) MS: positive (64%, moderate to strong intensity) Her-2 krysta: positive (3+) March 17, 2024 Right axillary lymph node, core biopsy: Metastatic carcinoma consistent with breast primary. RESULTS: ANTIBODY / CLONE RESULT P53 (DO-7) positive, wild type pattern Ki-67 (30-9) positive, 25% CK8 (92ngdwR80) positive CK5-6 (D5 & 1684) negative Calponin-1 (WV869B) negative P40 (BC28) negative E-Cad (ECH-6) positive MOC-31 (4561) positive, dim MORPHOMETRIC ANALYSIS ER (clone 6F11) >95% MS (clone 16/1E2) >95% Her-2Neu (clone CB11) 2+ IN SITU HYBRIDIZATION (DERREK) FOR HER2 Interpretation: Not Amplified 2. A cystic mass in the retroperitoneum incidentally found on imaging in February 2024: Patient's past medical history is notable for history of endometrial cancer, stage II (T2, N0, M0) status post robotic total hysterectomy with bilateral salpingo-oophorectomy followed by adjuvant radiation therapy June - July 2023. March 06, 2024 CT abdomen and pelvis: IMPRESSION: Moderate left hydronephrosis and ureteral dilatation to the mid ureter where there is a focal dilatation of the ureter with a decompressed distal ureter and no obstructing stone. Significant stranding of the perinephric fat and clinical correlation is recommended to exclude pyelonephrosis.. March 10, 2024 CT abdomen and pelvis with and without contrast: IMPRESSION: Originally thought to be part of the dilated left ureter is a cystic mass projecting between the left common iliac artery and the psoas muscle measuring 4.2 x 2.7 x 2.7 cm which is likely responsible for obstructing the left ureter at this level. The fluid density measures simple fluid on Hounsfield units. This could represent a necrotic lymph node or retroperitoneal fibrosis with pseudocyst formation or desmoid reaction due to sequela from radiation therapy March 12, 2024 cystoscopy, left retrograde pyelogram, left ureteroscopy with left ureteral stent insertion. March 27, 2024 abdomen MRI: IMPRESSION: Cystic lesion within the retroperitoneum which may represent urinoma, lymphocele/lymphangioma, cystic mesothelioma or neoplasm. April 08, 2024 CT-guided biopsy of abdominal mass: Retroperitoneal mass, CT guided core biopsy: Fat necrosis and fibrosis. Skeletal muscle tissue with reactive and focal degenerative change. No evidence of malignancy July 17, 2024 CT abdomen and pelvis: IMPRESSION: 1. Decreasing size of the cystic lesion of the retroperitoneum. 2. Interval decompression of the left hydronephrosis and hydroureter with placement of a double-J ureteral stent catheter. July 22, 2024 [facility] oncology follow-up (Dr. Giles): Impression residual cysticlesion in the left periaortic area is most likely a benign lymphoid cyst with very mild residual hydronephrosis. August 11, 2024: Right breast mastectomy with sentinel lymph node biopsy: FROZEN SECTION DIAGNOSIS A. Right axillary sentinel lymph node, biopsy: One out of three lymph nodes, positive for macrometastatic carcinoma. AM.mr 08/11/2024 MICROSCOPIC DIAGNOSIS A. Right axillary sentinel lymph node, biopsy: One out of three lymph nodes, positive for macrometastatic carcinoma. See comment. B. Right breast, mastectomy: Invasive ductal carcinoma. See cancer summary in the comment section. C. Right axillary lymph node, regional dissection: Fifteen out of fifteen lymph nodes, negative for metastatic carcinoma. See comment. SJ.mr 08/14/2024 COMMENT A. The largest metastatic focus of measures 0.8 x 0.3cm. Extranodal extension isnot seen. The lymph nodes are negative for metastatic carcinoma on multiple H & E levels and immunohistochemical stains for cytokeratins ([id number], BLOCK A1). C. Immunohistochemistry ([id number]) supports the above diagnosis. (A1 to A3) B. BREAST CANCER SUMMARY Procedure - Mastectomy Specimen laterality - Right Invasive tumor: Tumor site ? 10o?clock, 2cm from nipple, as per clinical information Tumor size ? 1.5 x 1.2 x 1.0 cm Histologic type ? Invasive ductal carcinoma, not otherwise specified Histologic grade (Portia grade): Glandular/tubular differentiation score - 2 Nuclear pleomorphism score - 2 Mitotic count score - 1 Overall grade - grade 1 (score of 5) Tumor focality ? Single focus of invasive carcinoma Ductal carcinoma in situ - Present Negative for extensive intraductal component (EIC). Size (extent) of DCIS ? Ductal carcinoma in situ consists of <5% of the total tumor involved Number of blocks with DCIS - 1 Number of blocks examined - 12 Architectural pattern - Cribriform Nuclear grade - grade 2 (intermediate) Necrosis ? Not identified Lobular carcinoma in situ ? Not identified Tumor extension: Skin ? Present and not involved Nipple ? Ductal carcinoma does not involve nipple epidermis Skeletal muscle ? Skeletal muscle is not present Margins: Margins are free of invasive ductal carcinoma and ductal carcinoma in situ are 4.5cm away from the closest posterior margin Regional lymph nodes: Number of lymph nodes examined - 18 Number of sentinel lymph nodes examined - 3 Number of lymph nodes with macrometastases - 1 Number of lymph nodes with micrometastases or isolated tumor cells - 0 Size of largest metastatic deposits ? 0.8 x 0.3cm (measured microscopically) Extranodal extension ? Not identified Distal metastases- Not applicable Treatment effect ? In the breast- Minimal response to presurgical therapy in the invasive carcinoma, In the lymph node- No definite response to presurgical therapy in the metastaticcarcinoma. Lymph vascular invasion ? Not identified Dermal lymph vascular invasion ? Not identified Ancillary Studies: Previously performed on same tumor ([id number] / [id number]) ER: positive (>95%, strong intensity) MS: positive (64%, moderate to strong intensity) [id number]: positive (3+) Microcalcifications ? Present in the invasive carcinoma and non-neoplastic tissue PATHOLOGIC STAGE: pT1c (y) pN1a pMx February 12, 2025 CT chest: Lungs and Airways: Increased linear markings with areas of confluence in the anterior aspect of the right upper lobe suggestive of post radiation fibrosis/pneumonitis. The changes extend into the anterior aspect of the right middle lobe. There is a 5.75 mm nodule in the anterior aspect of the right lower lobe as seen on axial image number 83 this most likely represents focal area of scarring. February 12, 2025 CT abdomen and pelvis: IMPRESSION: Further decrease in size with almost complete resolution of the previously seen left retroperitoneal soft tissue density. Stable left hydronephrosis and left hydroureter. Circumferential wall thickening of the rectum. July 30, 2025 CT chest abdomen and pelvis restaging at end of adjuvant therapy: IMPRESSION: No evidence of active disease in the chest. The previously described periaortic mass is no longer visualized. There is similar left-sided hydroureteronephrosis and new right-sided pelvicalyceal dilatation of uncertain significance. Free fluid which has increased slightly compared with the previous study. Uncertain etiology. Similar concentric rectal wall thickening. August 04, 2025 bone scan restaging at the end of adjuvant therapy: IMPRESSION: No scintigraphic evidence of osseous metastatic disease. Treatment summary and response: * Neoadjuvant TCHP: March 19, 2024-July 02, 2024 (6 cycles). * Mastectomy with sentinel lymph node biopsy August 11, 2024. * Kadcyla (Ado- trastuzumab) September 2024?June 2025 (14 cycles) * Adjuvant radiation therapy to right breast and axilla September 2024. Interval History The patient is presenting to clinic to discuss adjuvant AI. 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 Blood in urine Rectal bleeding Diarrhea due to drug Prerenal azotemia Dysuria Anemia due to chronic blood loss Gastric reflux Acid reflux Edema of both lower legs Mass in the abdomen Hypomagnesemia Diarrhea Encounter for chemotherapy management Abnormal CT of the abdomen Port-A-Cath in place Anxiety Bladder disease History of diverticulitis History of echocardiogram Cancer of right female breast Encounter for education Wears hearing aid Wears glasses Wears contact lenses Post-menopausal Cancer Back pain Migraine headache Non-smoker History of edema History of stress test Cardiology follow-up encounter Hx of vaginal delivery Mitral valve prolapse Chronic headaches Back problem Anemia Arthritis Hypertension Surgical History History of lymph node dissection of right axilla S/P right mastectomy History of renal stent Hx of cystoscopy Hx of surgical procedure Status post total hysterectomy and bilateral salpingo-oophorectomy S/P cystoscopy Hx of right breast biopsy Hx of colonoscopy History of orthopedic surgery History of excision of pilonidal cyst Family History Mother Diabetes Hypertension Osteoarthritis Colon cancer Grandfather Heart disease Sister Lupus Fibromyalgia Sister , December 2022 from post op PE Endometrial cancer Father Cancer prostate. Social History Smoking Status: Never smoker alcohol intake: never substance use type: does not use caffeine: Yes what type of physical activity do you participate in: walking frequency: 3-4 times per week seatbelt use: always do you feel safe at home: Yes additional social history: -Dony ROS ROS Narrative Negative except as documented in the interval HPI Intake Vital Signs 08/05/25 15:06 08/10/25 15:42 08/10/25 15:46 Height 5 ft 6 in 5 ft 6 in 5 ft 6 in Weight: 162 lb 161 lb 4 oz BMI 26.1 26.0 BP 149/76 H 136/76 H Blood Pressure Location Lt brachial Lt brachial Position Sitting Sitting Respiration 18 18 Pulse 84 88 Pulse Source Monitor Monitor Temp 97.9 F 98.1 F Temperature Source Temporal Artery Temporal Artery Pulse Oximetry (%) 98 98 Oxygen Delivery Method room air room air Intake Is patient in pain?: No Allergies No Known Allergies Allergy (Verified 08/10/25 15:44) Medications ?Medication ?Instructions ?Recorded ?Confirmed ?Type vibegron 75 mg tablet (Gemtesa) 75 mg PO DAILY 3 08/10/25 History acetaminophen 500 mg tablet 500 mg PO Q6H PRN pain 08/10/25 History (Tylenol Extra Strength) lisinopril 40 mg tablet 40 mg PO DAILY #90 tabs 05/1408/10/25 Rx Held on 08/03/25. Instructions: per order, taking only Amlodipine amlodipine 5 mg tablet 5 mg PO QDAY #90 tabs 08/10/25 Rx anastrozole 1 mg tablet 1 mg PO DAILY #90 tabs 08/1008/10/25 Rx Have you fallen in the past year?: No Central Venous Access Central Venous Access: Yes Port/PICC: Port Exam Physical Exam Narrative ECOG 1 Const alert, oriented x3 and no apparent distress Coding Level of Care Code Off vis,est,level 4 Exam Problem Focused Diagnoses Malignant neoplasm of right breast in female, estrogen receptor positive, unspecified site of breast C50.911; Z17.0 Breast location: unspecified site of breast Estrogen receptor status: positive Regional lymph node metastasis present C77.9 Anemia D64.9 Iron deficiency anemia type: chronic blood loss Assessment and Plan Assessment and Plan (1) Cancer of right female breast: Status: Chronic Qualifiers: Breast location: unspecified site of breast Estrogen receptor status: positive Qualified Code(s): C50.911 - Malignant neoplasm of unspecified site ofright female breast; Z17.0 - Estrogen receptor positive status [ER+] (2) Regional lymph node metastasis present: Status: Chronic (3) Anemia: Status: Chronic Qualifiers: Iron deficiency anemia type: chronic blood loss Medications: New anastrozole 1 mg PO DAILY 90 tabs 1RF C50.911 - Malignant neoplasm of unspecified site of right female breast, Z17.0 - Estrogen receptor positive status [ER+] Plan 69-year-old female with #1- Right breast cancer: Pathologic stage post neoadjuvant therapy II (T1c, N1, M0) 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 Tumor in the breast is ER positive (over 95%, strong) MS positive (64%, moderate to strong) and HER2 overexpressed 3+.Ki- 67 is positive low less than 5%. Whereas that in the pathologically confirmed metastasis in the right axillary lymph node is ER positive, MS positive and HER2/krysta 2+. Genetic testing (at time of diagnosis was endometrium cancer) was done in 2022 and showed no known deleterious mutation. * Received neoadjuvant for 6 cycles of TCHP February?June. Main toxicit y reported during neoadjuvant therapy was manageable grade 1 diarrhea and electrolyte disturbances (hypokalemia partly due to prior diuretic use hypophosphatemia and hypomagnesemia), bone marrow toxicity with severe transfusion requiring anemia. * Then underwent mastectomy with sentinel lymph node biopsy with residual cancer was found and minimal response to neoadjuvant therapy noted. * Received postoperative Kadcyla (Ado-trastuzumab) September 2024?June 2025. * She also received adjuvant radiation therapy to the right breast and axilla September 2024. Imaging by CT scan of the chest abdomen and pelvis January 2025 shows some nonspecific right upper lobe changes possible inflammatory postradiation and a nonspecific 5.75 mm nodule in the right lower lobe. #2- History of endometrium cancer and incidental finding of retroperitoneal cystic mass the nature of which cannot be determined by imaging that included 2 CAT scans and MRI. Patient's past medical history is notable for history of endometrial cancer, stage II (T2, N0, M0) status post robotic total hysterectomy with bilateral salpingo-oophorectomy followed by adjuvant radiation therapy June - July 2023. On March 12, 2024 patient underwent cystoscopy, left retrograde pyelogram, left ureteroscopy with left ureteral stent insertion. April 08, [address]-guided biopsy of the mass no malignancy identified but necrotic tissue. June 2024 after the conclusion of neoadjuvant systemic therapy for breast cancer CT scan of the abdomen and pelvis reported a cystic lesion in the retroperitoneal that is decreasing in size. July [facility] oncology follow-up (Dr. Giles): Impression residual cystic lesion in the left periaortic area is most likely a benign lymphoid cyst with very mild residual hydronephrosis. Chronic comorbid conditions: Mitral valve prolapse, hypertension, nonspecific arthritis, history of endometrial carcinoma status post total hysterectomy with bilateral salpingo-oophorectomy followed by adjuvant radiation therapy in 2022. Plan: Based on NCCN guidelines and up-to-date review of management of early- stage invasive ductal cancer of the breast with intent to cure: 1. Start adjuvant hormonal therapy with aromatase inhibitor for at least 5 years. The patient has been thoroughly educated to risks/benefits associated with anastrozole. Specifically, she has been educated to potential side effects, recommendations for symptom management, and circumstances in which she should contact provider prior to planned follow up, such as myalgias, hot flashes causing interference with ADLs. She has been provided written educational information regarding aromatase inhibitor therapy and lists of estrogenic herbs/supplements to avoid. I reviewed recommendations for calcium and vitamin D supplementation and the importance of weight bearing activity. A significant amount of time was allotted for questions. All the patient's concerns were addressed to her satisfaction and she is agreeable to proceed. 2. Regarding the endometrium cancer the patient will continue to be followed by [facility] and urology. The ureteric stent was removed July 2024, and since then abdominal pain and hematuria improved. 3. Anemia-multifactorial including anemia of cancer and chemotherapy, no evidence for residual iron and B12 deficiency. 4. Elective imaging as clinically indicated. I spent 35 minutes today reviewing labs, records and history. Time includes coordination of care and patient education, as well as documenting clinical information. Clinical Quality Measures Falls Risk Screening/Assistive Devices Have you fallen in the past year?: No 08/10/25 3973 <Electronically signed by Alley PORTILLOC> Date _ Alley [employer] DIALYSIS CHIEF EQUIPMENT TECHNICIAN DIALYSIS CHIEF EQUIPMENT TECHNICIAN-C Cosigner Signature: Date (if applicable) CC: ~ [facility] Work Phone: Reason for referral (narrative)* Consultation (Routine) - Pending Review Specialty Diagnoses / Procedures Referred By Contac t Referred To Contact Radiation Oncology Diagnoses Malignant neoplasm of endometrium (HCC) Procedures MS OFFICE/OUTPATIENT [facility] 60-74 MINUTES Champ Giles MD [address] [place] [address], [address] [place] [address] [address] Ibrahim [facility] [place] [address] Referral ID Status Reason Start Date Expiration Date Visits Requested Visits Authorized [id number] Pending Review Specialty Services Required 05/27/2023 05/26/2024 1 1 [facility]No reason for referral information [facility] Work Phone: Chief Complaint and Reason for Visit Chief Complaint MED REFILL POISON GORDON RASH Reason for Visit Hypertension Contact dermatitis due to poison gordon Chief Complaint VAGINAL BLEEDING POST MENOPAUSAL BLEEDING EMB ref by Dr Lex Bryant PMB SCREENING Reason for Visit DJD (degenerative santa int disease) of knee Post-menopausal bleeding Hypertension Post-menopausal bleeding Chief Complaint VAGINAL BLEEDING POST MENOPAUSAL BLEEDING EMB ref by Dr Lex Bryant PMB SCREENING abd pain Reason for Visit DJD (degenerative santa int disease) of knee Post-menopausal bleeding Hypertension Post-menopausal bleeding Chief Complaint EMB ref by Dr Keegan Bryant PMB SCREENING abd pain LAVH BSO CYSTO lavh, bso, cystoscopy lavh, bso, cystoscopy lavh, bso, cystoscopy 2 wk LAVHBSO cysto Reason for Visit Post-menopausal blee ding Endometrial hyperplasia without atypia, complex Endometrial hyperplasia without atypia, complex Post-menopausal bleeding Status post hysterectomy Anemia FH: colon cancer DJD (degenerative joint disease) of knee Endometrial hyperplasia without atypia, complex Hypokalemia Post-menopausal bleeding Status post hysterectomy Uterine carcinoma Chronic headaches FH: colon cancer Mitral valve prolapse Chief Complaint EMB ref by Dr Keegan Bryant PMB SCREENING abd pain LAVH BSO CYSTO lavh, bso, cystoscopy lavh, bso, cystoscopy lavh, bso, cystoscopy 2 wk LAVHBSO cysto FOLLOW UP C54.1 Reason for Visit Post-menopausal blee ding Endometrial hyperplasia without atypia, complex Endometrial hyperplasia without atypia, complex Post-menopausal bleeding Status post hysterectomy Anemia FH: colon cancer DJD (degenerative joint disease) of knee Endometrial hyperplasia without atypia, complex Hypokalemia Post-menopausal bleeding Status post hysterectomy Uterine carcinoma Chronic headaches FH: colon cancer Mitral valve prolapse Uterine carcinoma Hypertension Chief Complaint LAVH BSO CYSTO PREOP lavh, bso, cystoscopy lavh, bso, cystoscopy lavh, bso, cystoscopy 2 wk LAVHBSO cysto FOLLOW UP C54.1 CONSULT - ENDOMETRIAL LYMPHEDEMA. RX HERE OTV . Reason for Visit Endometrial hyperpla catalina without atypia, complex Endometrial hyperplasia without atypia, complex Post-menopausal bleeding Status post hysterectomy Anemia FH: colon cancer DJD (degenerative joint disease) of knee Endometrial hyperplasia without atypia, complex Hypokalemia Post-menopausal bleeding Status post hysterectomy Uterine carcinoma Chronic headaches FH: colon cancer Mitral valve prolapse Uterine carcinoma Hypertension [id number] Chief Complaint 3-6 mo fu, per JV LUMP ON RIGHT BREAST RT BREAST LUMP Reason for Visit [id number] Breast lump in upper outer quadrant Chief Complaint 3-6 mo fu, per JV LUMP ON RIGHT BREAST RT BREAST LUMP Birads 5 BIOPSY RIGHT BREAST MASS Reason for Visit [id number] Breast lump in upper outer quadrant Breast mass, right Chief Complaint Admit Date LUMP ON MASTECTOMY SITE September 22 8:54am OTV September 23, 2024 1 2:48pm NEW START - LABS - CHEMO ED - KADCYLA De cember 2023 7:57am OTV September 30, 2024 12:47pm OTV October 07, 2024 1:10pm Amb Documentation October 11, 2024 9:46am OTV October 12, 2024 12:39pm 3 WKS - LABS - KADCYLA October 15 9:33am 3 WKS - LABS - KADCYLA November 05 9:28am SENIOR CARE DRUG THERAPY November 16 12:43pm BREAST CANCER RX HERE November 17, 2024 10:51am 3 WKS - LABS - KADCYLA November 26 9:27am 6 M FU November 27, 2024 9 :19am 3 WKS - LABS - KADCYLA December 17 9:23am Hemorrhage of Anus and Rectum December 10:22am 3 WKS - LABS - KADCYLA January 07, 2025 7:33am XRT January 07, 2025 7:4 5am Reason for Visit Admit Date History of lymph node dissection of righ t axilla September 22, 2024 8:54am S/P right mastectomy September 22, 2024 8:54am Seroma after procedure September 22 8:54am Breast cancer of upper-outer quadrant of right female breast September 23, 2024 12:48pm Regional lymph node metastasis present D ecember 2023 12:48pm Anemia September 24, 2024 7 :57am Cancer of right female breast September 242023 7:57am Regional lymph node metastasis present D ecember 2023 7:57am Breast cancer of upper-outer quadrant of right female breast September 30, 2024 12:47pm Regional lymph node metastasis present D ecember 2023 12:47pm Breast cancer of upper-outer quadrant of right female breast October 07, 2024 1:10pm Regional lymph node metastasis present D ecember 2023 1:10pm Breast cancer of upper-outer quadrant of right female breast October 12, 2024 12:39pm Regional lymph node metastasis present D ecember 2023 12:39pm Anemia October 15, 2024 9:33am Cancer of right female breast September 212023 9:33am Regional lymph node metastasis present D ecember 2023 9:33am Breast cancer of upper-outer quadrant of right female breast November 05, 2024 9:28am [employer] Gyne[employer] and Obstetric[employer] (FIGO) stage II malig November 05, 2024 9:28am Regional lymph node metastasis present J anuary 2024 9:28am Diarrhea November 05, 2024 9 :28am Anemia November 05, 2024 9 :28am Cancer of right female breast November 052024 9:28am Anemia November 26, 2024 9 :27am Cancer of right female breast November 262024 9:27am Regional lymph node metastasis present F ebruary 2024 9:27am Breast cancer November 27, 2024 9 :19am [employer] Gyne[employer] and Obstetric[employer] (FIGO) stage II malig November 27, 2024 9:19am Hypertension November 27, 2024 9 :19am Anemia December 17, 2024 9:23am Cancer of right female breast November 222024 9:23am Regional lymph node metastasis present F ebruary 2024 9:23am Abdominal pain December 28, 2024 10: 22am Hemorrhoid December 28, 2024 10: 22am Rectal bleeding December 28, 2024 10: 22am Anemia December 28, 2024 10: 22am FH: colon cancer December 28, 2024 10: 22am Anemia January 07, 2025 7:3 3am Cancer of right female breast December 7:33am Regional lymph node metastasis present M arch 2024 7:33am BRBPR (bright red blood per rectum) Byron h 2024 12:52pm Chief Complaint Admit Date OTV September 30, 2024 12:47pm OTV October 07, 2024 1:10pm Amb Documentation October 11, 2024 9:46am OTV October 12, 2024 12:39pm 3 WKS - LABS - KADCYLA October 15 9:33am 3 WKS - LABS - KADCYLA November 05 9:28am SENIOR CARE DRUG THERAPY November 16 12:43pm BREAST CANCER RX HERE November 17, 2024 10:51am 3 WKS - LABS - KADCYLA November 26 9:27am 6 M FU November 27, 2024 9 :19am 3 WKS - LABS - KADCYLA December 17 9:23am Hemorrhage of Anus and Rectum December 10:22am 3 WKS - LABS - KADCYLA January 07, 2025 7:33am 6 MONTH F/U January 25, 2025 2:51 pm XRT January 28, 2025 8:4 5am 3 WKS - LABS - KADCYLA January 28, 2025 9:09am Reason for Visit Admit Date Breast cancer of upper-outer quadrant of right female breast September 30, 2024 12:47pm Regional lymph node metastasis present D ecember 2023 12:47pm Breast cancer of upper-outer quadrant of right female breast October 07, 2024 1:10pm Regional lymph node metastasis present D ecember 2023 1:10pm Breast cancer of upper-outer quadrant of right female breast October 12, 2024 12:39pm Regional lymph node metastasis present D ecember 2023 12:39pm Anemia October 15, 2024 9:33am Cancer of right female breast September 212023 9:33am Regional lymph node metastasis present D ecember 2023 9:33am Breast cancer of upper-outer quadrant of right female breast November 05, 2024 9:28am [employer] Gyne[employer]stetric[employer] (FIGO) stage II malig November 05, 2024 9:28am Regional lymph node metastasis present J anuary 2024 9:28am Diarrhea November 05, 2024 9 :28am Anemia November 05, 2024 9 :28am Cancer of right female breast November 052024 9:28am Anemia November 26, 2024 9 :27am Cancer of right female breast November 262024 9:27am Regional lymph node metastasis present F ebruary 2024 9:27am Breast cancer November 27, 2024 9 :19am [employer] Obst[employer] (FIGO) stage II malig November 27, 2024 9:19am Hypertension November 27, 2024 9 :19am Anemia December 17, 2024 9:23am Cancer of right female breast November 222024 9:23am Regional lymph node metastasis present F ebruary 2024 9:23am Abdominal pain December 28, 2024 10: 22am Hemorrhoid December 28, 2024 10: 22am Rectal bleeding December 28, 2024 10: 22am Anemia December 28, 2024 10: 22am FH: colon cancer December 28, 2024 10: 22am Anemia January 07, 2025 7:3 3am Cancer of right female breast December 7:33am Regional lymph node metastasis present M arch 2024 7:33am BRBPR (bright red blood per rectum) Byron h 2024 12:52pm Breast cancer of upper-outer quadrant of right female breast January 25, 2025 2:51pm Status post hysterectomy January 25, 2025 2:51pm Uterine carcinoma January 25, 2025 2:51 pm Anemia January 28, 2025 9:0 9am Cancer of right female breast January 9:09am Regional lymph node metastasis present A pril 2024 9:09am Chief Complaint Admit Date Amb Documentation October 11, 2024 9:46am OTV October 12, 2024 12:39pm 3 WKS - LABS - KADCYLA October 15 9:33am 3 WKS - LABS - KADCYLA November 05 9:28am [employer] DRUG THERAPY November 16 12:43pm BREAST CANCER RX HERE November 17, 2024 10:51am 3 WKS - LABS - KADCYLA November 26 9:27am 6 M FU November 27, 2024 9 :19am 3 WKS - LABS - KADCYLA December 17 9:23am Hemorrhage of Anus and Rectum December 10:22am 3 WKS - LABS - KADCYLA January 07, 2025 7:33am 6 MONTH F/U January 25, 2025 2:51 pm XRT January 28, 2025 8:4 5am 3 WKS - LABS - KADCYLA January 28, 2025 9:09am Test Result February 02, 2025 10: 23am WEAKNESS RX HERE February 05, 2025 10: 26am Reason for Visit Admit Date Breast cancer of upper-outer quadrant of right female breast October 12, 2024 12:39pm Regional lymph node metastasis present D ecember 2023 12:39pm Anemia October 15, 2024 9:33am Cancer of right female breast September 212023 9:33am Regional lymph node metastasis present D ecember 2023 9:33am Breast cancer of upper-outer quadrant of right female breast November 05, 2024 9:28am [employer] (FIGO) stage II malig November 05, 2024 9:28am Regional lymph node metastasis present J anuary 2024 9:28am Diarrhea November 05, 2024 9 :28am Anemia November 05, 2024 9 :28am Cancer of right female breast November 052024 9:28am Anemia November 26, 2024 9 :27am Cancer of right female breast November 262024 9:27am Regional lymph node metastasis present F ebruary 2024 9:27am Breast cancer November 27, 2024 9 :19am [employer] (FIGO) stage II malig November 27, 2024 9:19am Hypertension November 27, 2024 9 :19am Anemia December 17, 2024 9:23am Cancer of right female breast November 222024 9:23am Regional lymph node metastasis present F ebruary 2024 9:23am Abdominal pain December 28, 2024 10: 22am Hemorrhoid December 28, 2024 10: 22am Rectal bleeding December 28, 2024 10: 22am Anemia December 28, 2024 10: 22am FH: colon cancer December 28, 2024 10: 22am Anemia January 07, 2025 7:3 3am Cancer of right female breast December 7:33am Regional lymph node metastasis present M [facility] 2024 7:33am BRBPR (bright red blood per rectum) [facility] 2024 12:52pm Breast cancer of upper-outer quadrant of right female breast January 25, 2025 2:51pm Status post hysterectomy January 25, 2025 2:51pm Uterine carcinoma January 25, 2025 2:51 pm Anemia January 28, 2025 9:0 9am Cancer of right female breast January 9:09am Regional lymph node metastasis present A pril 2024 9:09am Rectal bleeding February 02, 2025 10: 23am Chief Complaint Admit Date 3 WKS - LABS - KADCYLA November 05 9:28am [employer] November 16 12:43pm BREAST CANCER RX HERE November 17, 2024 10:51am 3 WKS - LABS - KADCYLA November 26 9:27am 6 M FU November 27, 2024 9 :19am 3 WKS - LABS - KADCYLA December 17 9:23am Hemorrhage of Anus and Rectum December 10:22am 3 WKS - LABS - KADCYLA January 07, 2025 7:33am 6 MONTH F/U January 25, 2025 2:51 pm 3 WKS - LABS - KADCYLA January 28, 2025 9:09am Test Result February 02, 2025 10: 23am C50.411 Malignant neoplasm of upper-oute r quadrant February 12, 2025 8:17am 3 WKS - LABS - KADCYLA - REVIEW SCANS Ma 2024 10:33am XRT February 18, 2025 11:00a m WEAKNESS RX HERE March 02, 2025 1:00p m Reason for Visit Admit Date Breast cancer of upper-outer quadrant of right female breast November 05, 2024 9:28am [employer]ne[employer] and [employer]st[employer] (FIGO) stage II malig November 05, 2024 9:28am Regional lymph node metastasis present J anuary 2024 9:28am Diarrhea November 05, 2024 9 :28am Anemia November 05, 2024 9 :28am Cancer of right female breast November 052024 9:28am Anemia November 26, 2024 9 :27am Cancer of right female breast November 262024 9:27am [facility] 9:27am Breast cancer November 27, 2024 9 :19am [employer] Gyne[employer] and [employer]stetric[employer] (FIGO) [facility] November 27, 2024 9:19am Hypertension November 27, 2024 9 :19am Anemia December 17, 2024 9:23am Cancer of right female breast November 222024 9:23am Regional lymph node metastasis present F ebruary 2024 9:23am Abdominal pain December 28, 2024 10: 22am Hemorrhoid December 28, 2024 10: 22am Rectal bleeding December 28, 2024 10: 22am Anemia December 28, 2024 10: 22am FH: colon cancer December 28, 2024 10: 22am Anemia January 07, 2025 7:3 3am Cancer of right female breast December 7:33am Regional lymph node metastasis present M arch 2024 7:33am BRBPR (bright red blood per rectum) [facility] 2024 12:52pm Breast cancer of upper-outer quadrant of right female breast January 25, 2025 2:51pm Status post hysterectomy January 25, 2025 2:51pm Uterine carcinoma January 25, 2025 2:51 pm Anemia January 28, 2025 9:0 9am Cancer of right female breast January 9:09am Regional lymph node metastasis present A pril 2024 9:09am Rectal bleeding February 02, 2025 10: 23am Anemia February 18, 2025 10:33a m Cancer of right female breast February 18 10:33am Regional lymph node metastasis present M ay 2024 10:33am Chief Complaint Admit Date BREAST CANCER RX HERE November 17, 2024 10:51am 3 WKS - LABS - KADCYLA November 26 9:27am 6 M FU November 27, 2024 9 :19am 3 WKS - LABS - KADCYLA December 17 9:23am Hemorrhage of Anus and Rectum December 10:22am 3 WKS - LABS - KADCYLA January 07, 2025 7:33am 6 MONTH F/U January 25, 2025 2:51 pm 3 WKS - LABS - KADCYLA January 28, 2025 9:09am Test Result February 02, 2025 10: 23am C50.411 Malignant neoplasm of upper-oute r quadrant February 12, 2025 8:17am 3 WKS - LABS - KADCYLA - REVIEW SCANS Ma y 2024 10:33am WEAKNESS RX HERE March 02, 2025 1:00p m 3 WKS - LABS - KADCYLA March 11, 2025 9: 56am XRT March 11, 2025 10:00 am SEROMA CHECK March 12, 2025 10:16 am 6 wk FU March 17, 2025 12:55 pm Reason for Visit Admit Date Anemia November 26, 2024 9 :27am Cancer of right female breast November 262024 9:27am Regional lymph node metastasis present F ebruary 2024 9:27am Breast cancer November 27, 2024 9 :19am [employer] (FIGO) stage II malig November 27, 2024 9:19am Hypertension November 27, 2024 9 :19am Anemia December 17, 2024 9:23am Cancer of right female breast November 222024 9:23am Regional lymph node metastasis present F ebruary 2024 9:23am Abdominal pain December 28, 2024 10: 22am Hemorrhoid December 28, 2024 10: 22am Rectal bleeding December 28, 2024 10: 22am Anemia December 28, 2024 10: 22am FH: colon cancer December 28, 2024 10: 22am Anemia January 07, 2025 7:3 3am Cancer of right female breast December 7:33am Regional lymph node metastasis present M arch 2024 7:33am BRBPR (bright red blood per rectum) [facility] 2024 12:52pm Breast cancer of upper-outer quadrant of right female breast January 25, 2025 2:51pm Status post hysterectomy January 25, 2025 2:51pm Uterine carcinoma January 25, 2025 2:51 pm Anemia January 28, 2025 9:0 9am Cancer of right female breast January 9:09am Regional lymph node metastasis present A pril 2024 9:09am Rectal bleeding February 02, 2025 10: 23am Anemia February 18, 2025 10:33a m Cancer of right female breast February 18, 10:33am Regional lymph node metastasis present M ay 2024 10:33am Breast cancer of upper-outer quadrant of right female breast March 11, 2025 9:56am [employer] (FIGO) stage II malig March 11, 2025 9:56am Anemia March 11, 2025 9:56a m Cancer of right female breast March 11, 2025 9:56am Regional lymph node metastasis present M ay 2024 9:56am History of lymph node dissection of righ t axilla March 12, 2025 10:16am S/P right mastectomy March 12, 2025 10:1 6am Seroma after procedure March 12, 2025 10 :16am Chief Complaint Admit Date 3 WKS - LABS - KADCYLA December 17 9:23am Hemorrhage of Anus and Rectum December 10:22am 3 WKS - LABS - KADCYLA January 07, 2025 7:33am 6 MONTH F/U January 25, 2025 2:51 pm 3 WKS - LABS - KADCYLA January 28, 2025 9:09am Test Result February 02, 2025 10: 23am C50.411 Malignant neoplasm of upper-oute r quadrant February 12, 2025 8:17am 3 WKS - LABS - KADCYLA - REVIEW SCANS Ma y 2024 10:33am WEAKNESS RX HERE March 02, 2025 1:00p m 3 WKS - LABS - KADCYLA March 11, 2025 9: 56am SEROMA CHECK March 12, 2025 10:16 am 6 wk FU March 17, 2025 12:55 pm 3 WKS - LABS - KADCYLA April 01, 2025 1 0:01am XRT April 01, 2025 10:1 5am Reason for Visit Admit Date Anemia December 17, 2024 9:23am Cancer of right female breast November 222024 9:23am Regional lymph node metastasis present F ebruary 2024 9:23am Abdominal pain December 28, 2024 10: 22am Hemorrhoid December 28, 2024 10: 22am Rectal bleeding December 28, 2024 10: 22am Anemia December 28, 2024 10: 22am FH: colon cancer December 28, 2024 10: 22am Anemia January 07, 2025 7:3 3am Cancer of right female breast December 7:33am Regional lymph node metastasis present M arch 2024 7:33am BRBPR (bright red blood per rectum) [place] [facility] 2024 12:52pm Breast cancer of upper-outer quadrant of right female breast January 25, 2025 2:51pm Status post hysterectomy January 25, 2025 2:51pm Uterine carcinoma January 25, 2025 2:51 pm Anemia January 28, 2025 9:0 9am Cancer of right female breast January 9:09am Regional lymph node metastasis present A pril 2024 9:09am Rectal bleeding February 02, 2025 10: 23am Anemia February 18, 2025 10:33a m Cancer of right female breast February 18, 2 025 10:33am Regional lymph node metastasis present M ay 2024 10:33am Breast cancer of upper-outer quadrant of right female breast March 11, 2025 9:56am [employer] (FIGO) stage II malig March 11, 2025 9:56am Anemia March 11, 2025 9:56a m Cancer of right female breast March 11, 2025 9:56am Regional lymph node metastasis present M ay 2024 9:56am History of lymph node dissection of righ t axilla March 12, 2025 10:16am S/P right mastectomy March 12, 2025 10:1 6am Seroma after procedure March 12, 2025 10 :16am Elevated liver enzymes March 17, 2025 12 :55pm Rectal bleeding March 17, 2025 12:55 pm Chief Complaint Admit Date Hemorrhage of Anus and Rectum December 10:22am 3 WKS - LABS - KADCYLA January 07, 2025 7:33am 6 MONTH F/U January 25, 2025 2:51 pm 3 WKS - LABS - KADCYLA January 28, 2025 9:09am Test Result February 02, 2025 10: 23am C50.411 Malignant neoplasm of upper-oute r quadrant February 12, 2025 8:17am 3 WKS - LABS - KADCYLA - REVIEW SCANS Ma y 2024 10:33am WEAKNESS RX HERE March 02, 2025 1:00p m 3 WKS - LABS - KADCYLA March 11, 2025 9: 56am SEROMA CHECK March 12, 2025 10:16 am 6 wk FU March 17, 2025 12:55 pm 3 WKS - LABS - KADCYLA April 01, 2025 1 0:01am 3 WKS - LABS - KADCYLA April 22, 2025 10 :02am XRT April 22, 2025 10:15 am Reason for Visit Admit Date Abdominal pain December 28, 2024 10: 22am Hemorrhoid December 28, 2024 10: 22am Rectal bleeding December 28, 2024 10: 22am Anemia December 28, 2024 10: 22am FH: colon cancer December 28, 2024 10: 22am Anemia January 07, 2025 7:3 3am Cancer of right female breast December 7:33am Regional lymph node metastasis present M arch 2024 7:33am BRBPR (bright red blood per rectum) [facility] 2024 12:52pm Breast cancer of upper-outer quadrant of right female breast January 25, 2025 2:51pm Status post hysterectomy January 25, 2025 2:51pm Uterine carcinoma January 25, 2025 2:51 pm Anemia January 28, 2025 9:0 9am Cancer of right female breast January 9:09am Regional lymph node metastasis present A pril 2024 9:09am Rectal bleeding February 02, 2025 10: 23am Anemia February 18, 2025 10:33a m Cancer of right female breast February 18 10:33am Regional lymph node metastasis present M ay 2024 10:33am Breast cancer of upper-outer quadrant of right female breast March 11, 2025 9:56am [employer] (FIGO) stage II malig March 11, 2025 9:56am Anemia March 11, 2025 9:56a m Cancer of right female breast March 11, 2025 9:56am Regional lymph node metastasis present M ay 2024 9:56am History of lymph node dissection of righ t axilla March 12, 2025 10:16am S/P right mastectomy March 12, 2025 10:1 6am Seroma after procedure March 12, 2025 10 :16am Elevated liver enzymes March 17, 2025 12 :55pm Rectal bleeding March 17, 2025 12:55 pm Anemia April 01, 2025 10:0 1am Cancer of right female breast April 01, 2025 10:01am Regional lymph node metastasis present J une 2024 10:01am Anemia April 22, 2025 10:02 am Cancer of right female breast April 22, 2025 10:02am Regional lymph node metastasis present J luiza 2024 10:02am Chief Complaint Admit Date 6 MONTH F/U January 25, 2025 2:51 pm 3 WKS - LABS - KADCYLA January 28, 2025 9:09am Test Result February 02, 2025 10: 23am C50.411 Malignant neoplasm of upper-oute r quadrant February 12, 2025 8:17am 3 WKS - LABS - KADCYLA - REVIEW SCANS Ma y 2024 10:33am WEAKNESS RX HERE March 02, 2025 1:00p m 3 WKS - LABS - KADCYLA March 11, 2025 9: 56am SEROMA CHECK March 12, 2025 10:16 am 6 wk FU March 17, 2025 12:55 pm 3 WKS - LABS - KADCYLA April 01, 2025 1 0:01am 3 WKS - LABS - KADCYLA April 22, 2025 10 :02am Other intermediate (current) drug therapy J luiza 2024 10:53am 3 WKS - LABS - KADCYLA May 13, 2025 1 0:05am XRT May 13, 2025 10:1 5am Reason for Visit Admit Date Breast cancer of upper-outer quadrant of right female breast January 25, 2025 2:51pm Status post hysterectomy January 25, 2025 2:51pm Uterine carcinoma January 25, 2025 2:51 pm Anemia January 28, 2025 9:0 9am Cancer of right female breast January 9:09am Regional lymph node metastasis present A pril 2024 9:09am Rectal bleeding February 02, 2025 10: 23am Anemia February 18, 2025 10:33a m Cancer of right female breast February 18, 10:33am Regional lymph node metastasis present M ay 2024 10:33am Breast cancer of upper-outer quadrant of right female breast March 11, 2025 9:56am [employer] (FIGO) stage II malig March 11, 2025 9:56am Anemia March 11, 2025 9:56a m Cancer of right female breast March 11, 2025 9:56am Regional lymph node metastasis present M ay 2024 9:56am History of lymph node dissection of righ t axilla March 12, 2025 10:16am S/P right mastectomy March 12, 2025 10:1 6am Seroma after procedure March 12, 2025 10 :16am Elevated liver enzymes March 17, 2025 12 :55pm Rectal bleeding March 17, 2025 12:55 pm Anemia April 01, 2025 10:0 1am Cancer of right female breast April 01, 2025 10:01am Regional lymph node metastasis present J une 2024 10:01am Anemia April 22, 2025 10:02 am Cancer of right female breast April 22, 2025 10:02am Regional lymph node metastasis present J luiza2024 10:02am Reason for Visit Admit Date Breast cancer of upper-outer quadrant of right female breast January 25, 2025 2:51pm Status post hysterectomy January 25, 2025 2:51pm Uterine carcinoma January 25, 2025 2:51 pm Anemia January 28, 2025 9:0 9am Cancer of right female breast January 9:09am Regional lymph node metastasis present A pril 2024 9:09am Rectal bleeding February 02, 2025 10: 23am Anemia February 18, 2025 10:33a m Cancer of right female breast February 18 10:33am Regional lymph node metastasis present M ay 2024 10:33am Breast cancer of upper-outer quadrant of right female breast March 11, 2025 9:56am [employer] (FIGO) stage II malig March 11, 2025 9:56am Anemia March 11, 2025 9:56a m Cancer of right female breast March 11, 2025 9:56am Regional lymph node metastasis present M ay 2024 9:56am History of lymph node dissection of righ t axilla March 12, 2025 10:16am S/P right mastectomy March 12, 2025 10:1 6am Seroma after procedure March 12, 2025 10 :16am Elevated liver enzymes March 17, 2025 12 :55pm Rectal bleeding March 17, 2025 12:55 pm Anemia April 01, 2025 10:0 1am Cancer of right female breast April 01, 2025 10:01am Regional lymph node metastasis present J une 2024 10:01am Anemia April 22, 2025 10:02 am Cancer of right female breast April 22, 2025 10:02am Regional lymph node metastasis present J [email or web address] 10:02am Anemia May 13, 2025 10:0 5am Cancer of right female breast May 13, 2025 10:05am Regional lymph node metastasis present J luiza 2024 10:05am Chief Complaint Admit Date C50.411 Malignant neoplasm of upper-oute r quadrant February 12, 2025 8:17am 3 WKS - LABS - KADCYLA - REVIEW SCANS Ma y 2024 10:33am WEAKNESS RX HERE March 02, 2025 1:00p m 3 WKS - LABS - KADCYLA March 11, 2025 9: 56am SEROMA CHECK March 12, 2025 10:16 am 6 wk FU March 17, 2025 12:55 pm 3 WKS - LABS - KADCYLA April 01, 2025 1 0:01am 3 WKS - LABS - KADCYLA April 22, 2025 10 :02am Other terminal makeup operator (current) drug therapy J luiza 2024 10:53am 3 WKS - LABS - KADCYLA May 13, 2025 1 0:05am 3 WKS - LABS - KADCYLA June 03, 2025 10:02am XRT June 03, 2025 10 :15am Reason for Visit Admit Date Anemia February 18, 2025 10:33a m Cancer of right female breast February 18, 025 10:33am Regional lymph node metastasis present M ay 2024 10:33am Breast cancer of upper-outer quadrant of right female breast March 11, 2025 9:56am [employer] (FIGO) stage II malig March 11, 2025 9:56am Anemia March 11, 2025 9:56a m Cancer of right female breast March 11, 2025 9:56am Regional lymph node metastasis present M ay 2024 9:56am History of lymph node dissection of righ t axilla March 12, 2025 10:16am S/P right mastectomy March 12, 2025 10:1 6am Seroma after procedure March 12, 2025 10 :16am Elevated liver enzymes March 17, 2025 12 :55pm Rectal bleeding March 17, 2025 12:55 pm Anemia April 01, 2025 10:0 1am Cancer of right female breast April 01, 2025 10:01am Regional lymph node metastasis present J une 2024 10:01am Anemia April 22, 2025 10:02 am Cancer of right female breast April 22, 2025 10:02am Regional lymph node metastasis present J [facility] 2024 10:02am Anemia May 13, 2025 10:0 5am Cancer of right female breast May 13, 2025 10:05am Regional lymph node metastasis present J [facility] 2024 10:05am Anemia June 03, 2025 10 :02am Cancer of right female breast May 10:02am Regional lymph node metastasis present A [facility] 2024 10:02am Chief Complaint Admit Date 3 WKS - LABS - KADCYLA - REVIEW SCANS Ma y 2024 10:33am WEAKNESS RX HERE March 02, 2025 1:00p m 3 WKS - LABS - KADCYLA March 11, 2025 9: 56am SEROMA CHECK March 12, 2025 10:16 am 6 wk FU March 17, 2025 12:55 pm 3 WKS - LABS - KADCYLA April 01, 2025 1 0:01am 3 WKS - LABS - KADCYLA April 22, 2025 10 :02am Other terminal makeup operator (current) drug therapy [facility] 2024 10:53am 3 WKS - LABS - KADCYLA May 13, 2025 1 0:05am 3 WKS - LABS - KADCYLA June 03, 2025 10:02am XRT June 03, 2025 10 :15am 3 M FU June 17, 2025 12 :53pm Chief Complaint Admit Date WEAKNESS RX HERE March 02, 2025 1:00p m 3 WKS - LABS - KADCYLA March 11, 2025 9: 56am SEROMA CHECK March 12, 2025 10:16 am 6 wk FU March 17, 2025 12:55 pm 3 WKS - LABS - KADCYLA April 01, 2025 1 0:01am 3 WKS - LABS - KADCYLA April 22, 2025 10 :02am Other intermediate (current) drug therapy J [facility] 2024 10:53am 3 WKS - LABS - KADCYLA May 13, 2025 1 0:05am 3 WKS - LABS - KADCYLA June 03, 2025 10:02am 3 M FU June 17, 2025 12 :53pm 4 month follow up June 24, 2025 9:22am 3 WKS - LABS - KADCYLA June 24 9:23am XRT June 24, 2025 9:45am Reason for Visit Admit Date Breast cancer of upper-outer quadrant of right female breast March 11, 2025 9:56am [employer] (FIGO) stage II malig March 11, 2025 9:56am Anemia March 11, 2025 9:56a m Cancer of right female breast March 11, 2025 9:56am Regional lymph node metastasis present M ay 2024 9:56am History of lymph node dissection of righ t axilla March 12, 2025 10:16am S/P right mastectomy March 12, 2025 10:1 6am Seroma after procedure March 12, 2025 10 :16am Elevated liver enzymes March 17, 2025 12 :55pm Rectal bleeding March 17, 2025 12:55 pm Anemia April 01, 2025 10:0 1am Cancer of right female breast April 01, 2025 10:01am Regional lymph node metastasis present J [facility] 2024 10:01am Anemia April 22, 2025 10:02 am Cancer of right female breast April 22, 2025 10:02am Regional lymph node metastasis present J luiza 2024 10:02am Anemia May 13, 2025 10:0 5am Cancer of right female breast May 13, 2025 10:05am Regional lymph node metastasis present J [facility] 2024 10:05am Anemia June 03, 2025 10 :02am Cancer of right female breast May 10:02am Regional lymph node metastasis present A ugust 2024 10:02am BRBPR (bright red blood per rectum) [facility] 2024 12:53pm Elevated liver enzymes June 17, 2025 12:53pm Reason for Visit Admit Date Breast cancer of upper-outer quadrant of right female breast March 11, 2025 9:56am [employer] (FIGO) stage II malig March 11, 2025 9:56am Anemia March 11, 2025 9:56a m Cancer of right female breast March 11, 2025 9:56am Regional lymph node metastasis present M ay 2024 9:56am History of lymph node dissection of righ t axilla March 12, 2025 10:16am S/P right mastectomy March 12, 2025 10:1 6am Seroma after procedure March 12, 2025 10 :16am Elevated liver enzymes March 17, 2025 12 :55pm Rectal bleeding March 17, 2025 12:55 pm Anemia April 01, 2025 10:0 1am Cancer of right female breast April 01, 2025 10:01am Regional lymph node metastasis present J [facility] 2024 10:01am Anemia April 22, 2025 10:02 am Cancer of right female breast April 22, 2025 10:02am Regional lymph node metastasis present J [facility] 2024 10:02am Anemia May 13, 2025 10:0 5am Cancer of right female breast May 13, 2025 10:05am Regional lymph node metastasis present J [facility] 2024 10:05am Anemia June 03, 2025 10 :02am Cancer of right female breast May 10:02am Regional lymph node metastasis present A ugust 2024 10:02am BRBPR (bright red blood per rectum) [facility] 2024 12:53pm Elevated liver enzymes June 17, 2025 12:53pm Breast cancer of upper-outer quadrant of right female breast June 24, 2025 9:22am [employer] (FIGO) stage II malig June 24, 2025 9:22am Anemia June 24, 2025 9:23am Cancer of right female breast June 24, 2025 9:23am Regional lymph node metastasis present [facility] 2024 9:23am Chief Complaint Admit Date 3 WKS - LABS - KADCYLA April 01, 2025 1 0:01am 3 WKS - LABS - KADCYLA April 22, 2025 10 :02am Other intermediate (current) drug therapy [facility] 2024 10:53am 3 WKS - LABS - KADCYLA May 13, 2025 1 0:05am 3 WKS - LABS - KADCYLA June 03, 2025 10:02am 3 M FU June 17, 2025 12 :53pm 4 month follow up June 24, 2025 9:22am 3 WKS - LABS - KADCYLA June 24 9:23am XRT June 24, 2025 9:45am annual screening July 26, 2025 12 :32pm 6 month f/u July 26, 2025 1: 39pm Reason for Visit Admit Date Anemia April 01, 2025 10:0 1am Cancer of right female breast April 01, 2025 10:01am Regional lymph node metastasis present J [facility] 2024 10:01am Anemia April 22, 2025 10:02 am Cancer of right female breast April 22, 2025 10:02am Regional lymph node metastasis present J luiza 2024 10:02am Anemia May 13, 2025 10:0 5am Cancer of right female breast May 13, 2025 10:05am Regional lymph node metastasis present J [facility] 2024 10:05am Anemia June 03, 2025 10 :02am Cancer of right female breast May 10:02am Regional lymph node metastasis present A ugust 2024 10:02am BRBPR (bright red blood per rectum) [facility] 2024 12:53pm Elevated liver enzymes June 17, 2025 12:53pm Breast cancer of upper-outer quadrant of right female breast June 24, 2025 9:22am [employer] (FIGO) stage II malig June 24, 2025 9:22am Anemia June 24, 2025 9:23am Cancer of right female breast June 24, 2025 9:23am Regional lymph node metastasis present S [facility] 2024 9:23am Breast cancer of upper-outer quadrant of right female breast July 26, 2025 1:39pm Status post hysterectomy July 26 1:39pm Uterine carcinoma July 26, 2025 1: 39pm Chief Complaint Admit Date 3 WKS - LABS - KADCYLA April 22, 2025 10 :02am Other terminal makeup operator (current) drug therapy J [facility] 2024 10:53am 3 WKS - LABS - KADCYLA May 13, 2025 1 0:05am 3 WKS - LABS - KADCYLA June 03, 2025 10:02am 3 M FU June 17, 2025 12 :53pm 4 month follow up June 24, 2025 9:22am 3 WKS - LABS - KADCYLA June 24 9:23am annual screening July 26, 2025 12 :32pm 6 month f/u July 26, 2025 1: 39pm 6 M FU July 30, 2025 8 :53am Malignant neoplasm of unspecified site o f right fe July 30, 2025 1:13pm annual screening,Malignant neoplasm of u nspecified August 04, 2025 10:08am 6 WKS - LABS - REVIEW SCANS July 2:05pm XRT August 05, 2025 2 :15pm CHEMO ED August 10, 2025 3 :31pm ACUTE LOW POTASSIUM PER ONCOLOGIST Octob er 2024 9:51am Reason for Visit Admit Date Anemia April 22, 2025 10:02 am Cancer of right female breast April 22, 2025 10:02am Regional lymph node metastasis present [facility] 2024 10:02am Anemia May 13, 2025 10:0 5am Cancer of right female breast May 13, 2025 10:05am Regional lymph node metastasis present J [facility] 2024 10:05am Anemia June 03, 2025 10 :02am Cancer of right female breast May 10:02am [facility] 10:02am BRBPR (bright red blood per rectum) [facility] 2024 12:53pm Elevated liver enzymes June 17, 2025 12:53pm Breast cancer of upper-outer quadrant of right female breast June 24, 2025 9:22am [employer] (FIGO) stage II [facility] June 24, 2025 9:22am Anemia June 24, 2025 9:23am Cancer of right female breast June 24, 2025 9:23am Regional lymph node metastasis present [facility] 2024 9:23am Breast cancer of upper-outer quadrant of right female breast July 26, 2025 1:39pm Status post hysterectomy July 26 1:39pm Uterine carcinoma July 26, 2025 1: 39pm Breast cancer July 30, 2025 8 :53am [employer] of Gyne[employer] and Obstetric[employer] (FIGO) [facility] July 30, 2025 8:53am Hypertension July 30, 2025 8 :53am Anemia August 05, 2025 2 :05pm Cancer of right female breast August [id number] 2:05pm Regional lymph node metastasis present O ctober 2024 2:05pm Anemia August 10, 2025 3 :31pm Cancer of right female breast August 102024 3:31pm Regional lymph node metastasis present O ctober 2024 3:31pm Hypokalemia August 12, 2025 9 :51am Hypomagnesemia August 12, 2025 9 :51am Chief Complaint Admit Date Other intermediate (current) drug therapy J luiza 2024 10:53am 3 WKS - LABS - KADCYLA May 13, 2025 1 0:05am 3 WKS - LABS - KADCYLA June 03, 2025 10:02am 3 M FU June 17, 2025 12 :53pm 4 month follow up June 24, 2025 9:22am 3 WKS - LABS - KADCYLA June 24 9:23am annual screening July 26, 2025 12 :32pm 6 month f/u July 26, 2025 1: 39pm 6 M FU July 30, 2025 8 :53am Malignant neoplasm of unspecified site o f right fe July 30, 2025 1:13pm annual screening,Malignant neoplasm of u nspecified August 04, 2025 10:08am 6 WKS - LABS - REVIEW SCANS July 2:05pm XRT August 05, 2025 2 :15pm CHEMO ED August 10, 2025 3 :31pm ACUTE LOW POTASSIUM PER ONCOLOGIST Octob er 2024 9:51am SCREENING August 24, 2025 1 0:34am Reason for Visit Admit Date Anemia May 13, 2025 10:0 5am Cancer of right female breast May 13, 2025 10:05am Regional lymph node metastasis present J luiza 2024 10:05am Anemia June 03, 2025 10 :02am Cancer of right female breast May 10:02am Regional lymph node metastasis present A ugust 2024 10:02am BRBPR (bright red blood per rectum) Augu st 2024 12:53pm Elevated liver enzymes June 17, 2025 12:53pm Breast cancer of upper-outer quadrant of right female breast June 24, 2025 9:22am [employer] of Gynecology and Obstetrics (FIGO) stage II malig June 24, 2025 9:22am Anemia June 24, 2025 9:23am Cancer of right female breast June 24, 2025 9:23am Regional lymph node metastasis present S eptember 2024 9:23am Breast cancer of upper-outer quadrant of right female breast July 26, 2025 1:39pm Status post hysterectomy July 26 1:39pm Uterine carcinoma July 26, 2025 1: 39pm Breast cancer July 30, 2025 8 :53am [employer] Gyne[employer] and Obstetrics (FIGO) stage II malig July 30, 2025 8:53am Hypertension July 30, 2025 8 :53am Anemia August 05, 2025 2 :05pm Cancer of right female breast August 052024 2:05pm Regional lymph node metastasis present O ctober 2024 2:05pm Anemia August 10, 2025 3 :31pm Cancer of right female breast August 102024 3:31pm Regional lymph node metastasis present O ctober 2024 3:31pm Hypokalemia August 12, 2025 9 :51am Hypomagnesemia August 12, 2025 9 :51am Family History No Family History Records Found Relationship Condition Age at Onset Recorded Date/T bushra father Malignant neoplasm of prostate Unknown Hypertension Unknown mother Diabetes mellitus Unknown Malignant neoplasm of colon Unknown Osteoarthritis Unknown grandfather Cardiac disease Unknown sister Lupus erythematosus Unknown Fibromyalgia Unknown Relationship Condition Age at Onset Recorded Date/T bushra father Malignant neoplasm of prostate Unknown Hypertension Unknown mother Diabetes mellitus Unknown Malignant neoplasm of colon Unknown Osteoarthritis Unknown grandfather Cardiac disease Unknown sister Lupus erythematosus Unknown Fibromyalgia Unknown sister Malignant neoplasm of endometrium Unknown Relationship Condition Age at Onset Recorded Date/T bushra mother Diabetes mellitus Unknown Hypertension Unknown Osteoarthritis Unknown Malignant neoplasm of colon Unknown grandfather Cardiac disease Unknown sister Lupus erythematosus Unknown Fibromyalgia Unknown sister Malignant neoplasm of endometrium Unknown father Malignant neoplasm Unknown Advance Directives No Advanced Directives Records Found Advance Directive Response Recorded Date/ Time Living Will No April 10, 2019 1:32pm Power of Front Man No April 10 1:32pm Advance Directive Response Recorded Date/ Time Living Will No February 11, 2023 2:48pm Power of Front Man No February 11 2:48pm Advance Directive Response Recorded Date/ Time Name of Medical Power of Front Man nika vasquez April 02, 2023 8:36pm Living Will Yes April 02, 2023 8:36pm Power of Front Man Yes April 02 8:36pm Documents on File Type Date Recorded Patient Telephone Recorder Expl anation Advance Directives and Livin g Will 05/14/2023 6:56 AM Power of Front Man 05/14/2023 6:55 AM Latest Code Status on File Code Status Date Activated Date Inactivated Comments Full Code 05/14/2023 6:57 AM 05/14/2023 2:21 PM Documents on File Type Date Recorded Patient Telephone Recorder Expl anation Advance Directives and Livin g Will 05/14/2023 6:56 AM Power of Front Man 05/14/2023 6:55 AM Latest Code Status on File Code Status Date Activated Date Inactivated Comments Full Code 05/14/2023 6:57 AM 05/14/2023 2:21 PM Advance Directive Response Recorded Date/ Time Living Will Yes April 02, 2023 8:36pm Power of Front Man Yes April 02 8:36pm Date Activated Date Inactivated Comments 05/14/2023 6:57 AM 05/14/2023 2:21 PM Advance Directive Response Recorded Date/ Time Living Will Yes August 11 3:11pm Do you have a Healthcare Power of Front Man? Yes August 11, 2024 3:11pm Advance Directives on File Yes Rafael de dios 2024 12:29pm Living Will Yes December 17 12:29pm Do you have a Healthcare Power of Front Man? Yes December 17, 2024 12:29pm Name of Medical Power of Front Man Dony December 17, 2024 12:29pm Advance Directives Yes November 12:29pm Living Will Yes January 08, 2025 2:53pm Do you have a Healthcare Power of Front Man? Yes January 08, 2025 2:53pm Name of Medical Power of Front Man January 08, 2025 2:53pm Advance Directive Response Recorded Date/ Time Advance Directives on File Yes Rafael [email or web address] 12:29pm Living Will Yes December 17 12:29pm Do you have a Healthcare Power of Front Man? Yes December 17, 2024 12:29pm Name of Medical Power of Front Man Dony December 17, 2024 12:29pm Advance Directives Yes November 12:29pm Living Will Yes January 08, 2025 2:53pm Do you have a Healthcare Power of Front Man? Yes January 08, 2025 2:53pm Name of Medical Power of Front Man January 08, 2025 2:53pm Advance Directive Response Recorded Date/ Time Advance Directives on File Yes January 28, 2025 10:55am Living Will Yes January 28, 2025 10:55am Do you have a Healthcare Power of Front Man? Yes January 28, 2025 10:55am Name of Medical Power of Front Man Dony January 28, 2025 10:55am Advance Directives Yes January 28 10:55am Living Will Yes January 08, 2025 2:53pm Do you have a Healthcare Power of Front Man? Yes January 08, 2025 2:53pm Name of Medical Power of Front Man January 08, 2025 2:53pm Advance Directive Response Recorded Date/ Time Advance Directives on File Yes February [id number] 1:30pm Living Will Yes February 18, 2025 1: 30pm Do you have a Healthcare Power of Front Man? Yes February 18, 2025 1:30pm Name of Medical Power of Front Man Dony February 18, 2025 1:30pm Advance Directives Yes February 18, 2025 1:30pm Living Will Yes January 08, 2025 2:53pm Do you have a Healthcare Power of Front Man? Yes January 08, 2025 2:53pm Name of Medical Power of Front Man January 08, 2025 2:53pm Advance Directive Response Recorded Date/ Time Advance Directives on File Yes February 192024 12:39pm Living Will Yes March 11, 2025 1 2:39pm Do you have a Healthcare Power of Front Man? Yes March 11, 2025 12:39pm Name of Medical Power of Front Man Dony March 11, 2025 12:39pm Advance Directives Yes March 11 12:39pm Living Will Yes January 08, 2025 2:53pm Do you have a Healthcare Power of Front Man? Yes January 08, 2025 2:53pm Name of Medical Power of Front Man January 08, 2025 2:53pm Advance Directive Response Recorded Date/ Time Advance Directives on File Yes April 01, 2025 12:35pm Living Will Yes April 01, 2025 12:35pm Do you have a Healthcare Power of Front Man? Yes April 01, 2025 12:35pm Name of Medical Power of Front Man Dony April 01, 2025 12:35pm Advance Directives Yes April 01 12:35pm Living Will Yes January 08, 2025 2:53pm Do you have a Healthcare Power of Front Man? Yes January 08, 2025 2:53pm Name of Medical Power of Front Man January 08, 2025 2:53pm Advance Directive Response Recorded Date/ Time Advance Directives on File Yes April 22, 2025 11:46am Living Will Yes April 22, 2025 1 1:46am Do you have a Healthcare Power of Front Man? Yes April 22, 2025 11:46am Name of Medical Power of Front Man Dony April 22, 2025 11:46am Advance Directives Yes April 22 11:46am Advance Directive Response Recorded Date/ Time Advance Directives on File Yes May 13, 2025 12:36pm Living Will Yes May 13, 2025 12:36pm Do you have a Healthcare Power of Front Man? Yes May 13, 2025 12:36pm Name of Medical Power of Front Man Dony May 13, 2025 12:36pm Advance Directives Yes May 13 12:36pm Advance Directive Response Recorded Date/ Time Advance Directives on File Yes Josselin diaz 2024 11:33am Living Will Yes June 24 11:33am Do you have a Healthcare Power of Front Man? Yes June 24, 2025 11:33am Name of Medical Power of Front Man Dony June 24, 2025 11:33am Advance Directives Yes June 11:33am Advance Directive Response Recorded Date/ Time Advance Directives on File Yes Josselin diaz 2024 10:33am Living Will Yes June 24 10:33am Do you have a Healthcare Power of Front Man? Yes June 24, 2025 10:33am Name of Medical Power of Front Man Dony June 24, 2025 10:33am Advance Directives Yes June 10:33am Reason for Referral Specialty Diagnoses / Procedures Referred By Contac t Referred To Contact Radiology Diagnoses Endometrial cancer (CMS/HCC) (HCC) Procedures CT abdomen pelvis w contrast Champ Giles MD [address], [address] [place] [address] Referral ID Status Reason Start Date Expiration Date V isits Requested Visits Authorized [id number] Pending Review 04/24/2023 10/21/2023 1 1 Summary Purpose Additional Source Comments Goals (unrecognized section and content) Goals may be documented in a n alternate sectionGoals may be documented in an alternate sectionGoals may be documented in an alternate sectionGoals may be documented in an alternate sectionGoals may be documented in an alternate sectionGoals may be documented in an alternate sectionGoals may be documented in an alternate sectionGoals may be documented in an alternate sectionGoals may be documented in an alternate sectionGoals may be documented in an alternate sectionGoals may be documented in an alternate sectionGoals may be documented in an alternate sectionGoals may be documented in an alternate sectionGoals may be documented in an alternate sectionGoals may be documented in an alternate sectionGoals may be documented in an alternate section Care Teams (unrecognized sec tion and content) Team Status: Active Member Role Status Dates Dr. Lex Bryant DO Primary Care Provider Active Team Status: Inactive Member Role Status Dates Dr. Lex Bryant DO Primary Care Provider Active Start: November 05, 2024 End: November 05, 2024 Dr. Lex Bryant DO Referring Provider Active Start: November 05, 2024 End: November 05, 2024 Alley Walden NP, NP-C Attending Provider Active Start: November 05, 2024 End: November 05, 2024 Team Status: Inactive Member Role Status Dates Dr. Lex Bryant DO Primary Care Provider Active Start: November 16, 2024 End: November 16, 2024 Alley Walden NP, NP-C Attending Provider Active Start: November 16, 2024 End: November 16, 2024 Alley Walden NP, NP-C Referring Provider Active Start: November 16, 2024 End: November 16, 2024 Team Status: Active Member Role Status Dates Dr. Lex Bryant DO Primary Care Provider Active Start: November 16, 2024 Dr. Capo Xiong MD Attending Provider Active S tart: November 16, 2024 Team Status: Inactive Member Role Status Dates Dr. Lex Bryant DO Primary Care Provider Active Start: November 17, 2024 End: November 17, 2024 Dr. New Ibrahim DO Attending Provider Active Start: November 17, 2024 End: November 17, 2024 Dr. New Ibrahim DO Referring Provider Active Start: November 17, 2024 End: November 17, 2024 Team Status: Inactive Member Role Status Dates Dr. Lex Bryant DO Primary Care Provider Active Start: November 26, 2024 End: November 26, 2024 Dr. Lex Bryant DO Referring Provider Active Start: November 26, 2024 End: November 26, 2024 Dr. Em Torres MD Attending Provider Active Start: November 26, 2024 End: November 26, 2024 Team Status: Inactive Member Role Status Dates Dr. Lex Bryant DO Primary Care Provider Active Start: November 27, 2024 End: November 27, 2024 Dr. Lex Bryant DO Referring Provider Active Start: November 27, 2024 End: November 27, 2024 Dr. Capo Xiong MD Attending Provider Active S tart: November 27, 2024 End: November 27, 2024 Team Status: Inactive Member Role Status Dates Dr. Lex Bryant DO Primary Care Provider Active Start: December 17, 2024 End: December 17, 2024 Dr. Lex Bryant DO Referring Provider Active Start: December 17, 2024 End: December 17, 2024 Dr. Em Torres MD Attending Provider Active Start: December 17, 2024 End: December 17, 2024 Team Status: Inactive Member Role Status Dates Dr. Lex Bryant DO Primary Care Provider Active Start: December 28, 2024 End: December 28, 2024 Dr. Lex Bryant DO Referring Provider Active Start: December 28, 2024 End: December 28, 2024 SKYLA George Attending Provider Active Start: December 28, 2024 End: December 28, 2024 Team Status: Inactive Member Role Status Dates Dr. Lex Bryant DO Primary Care Provider Active Start: January 07, 2025 End: January 07, 2025 Dr. Lex Bryant DO Referring Provider Active Start: January 07, 2025 End: January 07, 2025 Alley Walden DIALYSIS CHIEF EQUIPMENT TECHNICIAN, DIALYSIS CHIEF EQUIPMENT TECHNICIAN-C Attending Provider Active Start: January 07, 2025 End: January 07, 2025 Team Status: Inactive Member Role Status Dates Dr. Lex Bryant DO Primary Care Provider Active Start: January 12, 2025 End: January 12, 2025 Dr. Lex Bryant DO Referring Provider Active Start: January 12, 2025 End: January 12, 2025 Dr. Patrick Peres , Attending Provider Active Start: January 12, 2025 End: January 12, 2025 Team Status: Active Member Role Status Dates Dr. Lex Bryant DO Primary Care Provider Active Start: January 12, 2025 Dr. Lex Bryant DO Referring Provider Active Start: January 12, 2025 Dr. Patrick Peres DO Attending Provider Active Start: January 12, 2025 Dr. Patrick Peres DO Other Provider Active St art: January 12, 2025 Team Status: Inactive Member Role Status Dates Dr. Lex Bryant DO Primary Care Provider Active Start: January 25, 2025 End: January 25, 2025 Dr. Lex Bryant DO Referring Provider Active Start: January 25, 2025 End: January 25, 2025 Dr. Samantha Arango , Attending Provider Activ e Start: January 25, 2025 End: January 25, 2025 Team Status: Inactive Member Role Status Dates Dr. Lex Bryant DO Primary Care Provider Active Start: January 28, 2025 End: January 28, 2025 Dr. Lex Bryant DO Referring Provider Active Start: January 28, 2025 End: January 28, 2025 Alley Walden NP, DIALYSIS CHIEF EQUIPMENT TECHNICIAN-C Attending Provider Active Start: January 28, 2025 End: January 28, 2025 Team Status: Inactive Member Role Status Dates Dr. Lex Bryant DO Primary Care Provider Active Start: February 02, 2025 End: February 02, 2025 Dr. Lex Bryant DO Referring Provider Active Start: February 02, 2025 End: February 02, 2025 SKYLA George Attending Provider Active Start: February 02, 2025 End: February 02, 2025 Team Status: Inactive Member Role Status Dates Dr. Lex Bryant DO Primary Care Provider Active Start: February 02, 2025 End: February 02, 2025 Samantha Shen NP-C Attending Provider Active Start: February 02, 2025 End: February 02, 2025 Samantha Shen NP-C Referring Provider Active Start: February 02, 2025 End: February 02, 2025 Team Status: Inactive Member Role Status Dates Dr. Lex Bryant DO Primary Care Provider Active Start: February 12, 2025 End: February 12, 2025 Alleytre Walden DIALYSIS CHIEF EQUIPMENT TECHNICIAN, DIALYSIS CHIEF EQUIPMENT TECHNICIAN-C Attending Provider Active Start: February 12, 2025 End: February 12, 2025 Alley Win DIALYSIS CHIEF EQUIPMENT TECHNICIAN, DIALYSIS CHIEF EQUIPMENT TECHNICIAN-C Referring Provider Active Start: February 12, 2025 End: February 12, 2025 Team Status: Active Member Role Status Dates Dr. Lex Bryant DO Primary Care Provider Active Start: February 12, 2025 Dr. Capo Xiong MD Attending Provider Active S tart: February 12, 2025 Team Status: Inactive Member Role Status Dates Dr. Lex Bryant DO Primary Care Provider Active Start: February 18, 2025 End: February 18, 2025 Dr. Lex Bryant DO Referring Provider Active Start: February 18, 2025 End: February 18, 2025 Dr. Em Torres MD Attending Provider Active Start: February 18, 2025 End: February 18, 2025 Team Status: Active Member Role Status Dates Dr. New Ibrahim DO Attending Provider Active Start: February 18, 2025 Dr. New Ibrahim DO Referring Provider Active Start: February 18, 2025 Dr. Lex Bryant DO Primary Care Provider Active Start: February 18, 2025 Team Status: Inactive Member Role Status Dates Dr. Lex Bryant DO Primary Care Provider Active Start: March 02, 2025 End: March 02, 2025 Alley Win DIALYSIS CHIEF EQUIPMENT TECHNICIAN, DIALYSIS CHIEF EQUIPMENT TECHNICIAN-C Attending Provider Active Start: March 02, 2025 End: March 02, 2025 Alley Win DIALYSIS CHIEF EQUIPMENT TECHNICIAN, DIALYSIS CHIEF EQUIPMENT TECHNICIAN-C Referring Provider Active Start: March 02, 2025 End: March 02, 2025 Team Status: Active Member Role Status Dates Dr. Lex Bryant DO Primary Care Provider Active Start: October 11, 2024 Dr. New Ibrahim DO Attending Provider Active Start: October 11, 2024 Team Status: Inactive Member Role Status Dates Dr. Lex Bryant DO Primary Care Provider Active Start: October 12, 2024 End: October 12, 2024 Dr. New Ibrahim DO Attending Provider Active Start: October 12, 2024 End: October 12, 2024 Dr. New Ibrahim DO Referring Provider Active Start: October 12, 2024 End: October 12, 2024 Team Status: Inactive Member Role Status Dates Dr. Lex Bryant DO Primary Care Provider Active Start: October 15, 2024 End: October 15, 2024 Dr. Lex Bryant DO Referring Provider Active Start: October 15, 2024 End: October 15, 2024 Alley Win DIALYSIS CHIEF EQUIPMENT TECHNICIAN, DIALYSIS CHIEF EQUIPMENT TECHNICIAN-C Attending Provider Active Start: October 15, 2024 End: October 15, 2024 Team Status: Active Member Role Status Dates Dr. New Ibrahim DO Attending Provider Active Start: January 28, 2025 Dr. New Ibrahim DO Referring Provider Active Start: January 28, 2025 Dr. Lex Bryant DO Primary Care Provider Active Start: January 28, 2025 Team Status: Active Member Role Status Dates Dr. Lex Bryant DO Primary Care Provider Active Start: February 05, 2025 Alley Win DIALYSIS CHIEF EQUIPMENT TECHNICIAN, DIALYSIS CHIEF EQUIPMENT TECHNICIAN-C Attending Provider Active Start: February 05, 2025 Alley Win DIALYSIS CHIEF EQUIPMENT TECHNICIAN, DIALYSIS CHIEF EQUIPMENT TECHNICIAN-C Referring Provider Active Start: February 05, 2025 Team Status: Inactive Member Role Status Dates Dr. Lex Bryant DO Primary Care Provider Active Start: September 30, 2024 End: September 30, 2024 Dr. New Ibrahim DO Attending Provider Active Start: September 30, 2024 End: September 30, 2024 Dr. New Ibrahim DO Referring Provider Active Start: September 30, 2024 End: September 30, 2024 Team Status: Inactive Member Role Status Dates Dr. Lex Bryant DO Primary Care Provider Active Start: October 07, 2024 End: October 07, 2024 Dr. New Ibrahim DO Attending Provider Active Start: October 07, 2024 End: October 07, 2024 Dr. New Ibrahim DO Referring Provider Active Start: October 07, 2024 End: October 07, 2024 Team Status: Active Member Role Status Dates Dr. Lex Bryant DO Primary Care Provider Active Start: January 28, 2025 Dr. Lex Bryant DO Referring Provider Active Start: January 28, 2025 Alley Walden DIALYSIS CHIEF EQUIPMENT TECHNICIAN, DIALYSIS CHIEF EQUIPMENT TECHNICIAN-C Attending Provider Active Start: January 28, 2025 Team Status: Active Member Role Status Dates Dr. Lex Bryant , Family Provider Active Team Status: Inactive Member Role Status Dates Dr. Lex Bryant , DO Primary Care Provider, Referr ing Provider Active Dr. Samantha Arango DO Attending Provider Activ e Team Status: Active Member Role Status Dates Dr. Lex Bryant DO Primary Care Provider Active Dr. Samantha Arango DO Attending Provider, Referring Provider, Other Provider Active Team Status: Active Member Role Status Dates Dr. Lex Bryant DO Primary Care Provider Active Dr. Samantha Arango DO Admit Prov ider, Attending Provider, Referring Provider, Other Provider Active Team Status: Inactive Member Role Status Dates Dr. Lex Bryant , DO Primary Care Pr ovider, Attending Provider, Referring Provider Active Team Status: Active Member Role Status Dates Dr. Lex Bryant DO Primary Care Provider Active Dr. Capo Xiong MD Attending Provider Active Dr. See Babin MD Referring Provider Active Team Status: Inactive Member Role Status Dates Dr. New Ibrahim DO Attending Provider Active Dr. Champ Giles MD Referring Provider Active Team Status: Active Member Role Status Dates Dr. New Ibrahim DO Attending Provider, Referring P rovider Active Team Status: Active Member Role Status Dates Dr. New Ibrahim DO Attending Provider Active Team Status: Inactive Member Role Status Dates Dr. New Ibrahim DO Attending Provider Active Team Status: Inactive Member Role Status Dates Dr. Lex Bryant DO Primary Care Provider Active Dr. Samantha Arango DO Admit Prov ider, Attending Provider, Referring Provider Active Team Status: Inactive Member Role Status Dates Dr. Lex Bryant DO Primary Care Provider Active Dr. Champ Giles MD Attending Provider Active Team Status: Inactive Member Role Status Dates Dr. New Ibrahim DO Attending Provider, Referring P rovider Active Team Status: Inactive Member Role Status Dates Dr. Lex R Brown , DO Primary Care Provider Active Dr. Samantha Arango , DO Attending Provider, Refe rring Provider Active Team Status: Inactive Member Role Status Dates Dr. Lex Bryant , DO Primary Care Provider Active Dr. Champ Giles MD Attending Provider, Referring Provider Active Team Status: Active Member Role Status Dates Dr. Lex Bryant , DO Family Provider Active Dr. Lex Bryant , DO Primary Care Provider Active Team Status: Active Member Role Status Dates Dr. Lex Bryant , DO Primary Care Provider Active Dr. Amairani Samuels MD Attending Provider, Referring Provider Active Team Status: Inactive Member Role Status Dates Dr. Lex Bryant , DO Primary Care Provider Active Dr. Amairani Samuels MD Attending Provider, Referring Provider Active Team Status: Inactive Member Role Status Dates Dr. Lex Bryant , DO Primary Care Provider Active Dr. Zechariah Gomez MD Emergency Provider Active Team Status: Inactive Member Role Status Dates Dr. Lex Bryant , DO Primary Care Provider Active Dr. Zechariah Gomez MD Attending Provider, Emergency Provi alondra Active Commercial Credit Lead Relationship Specialty Start Date End Date Lex Bryant [address] [place] [place] [address] PCP - General Family Medicine 04/24/23 Champ Giles MD [address] [place] [address], [address] [place] [address] Consulting Physician Gynecologic Oncology 04/16/23 Commercial Credit Lead Relationship Specialty Start Date End Date Lex Bryant [address] [place] [address] PCP - General Family Medicine 04/24/23 Champ Giles MD [address] [place] [address], [address] [place], [place] [id number] Consulting Physician Gynecologic Oncology 04/16/23 Commercial Credit Lead Relationship Specialty Start Date End Date Lex Bryant [address] [place] [address] PCP - General Family Medicine 04/24/23 Champ Giles MD [address] [place] [address] Consulting Physician Gynecologic Oncology 04/16/23 Daisy Hopson, MACHINIST OUTSIDE - SUPPLEMENTAL MANAGER [address] [facility] [address] [place] [address] Nurse Practitioner Certified Nurse Practitioner 05/03/23 Team Status: Active Member Role Status Dates Dr. Lex Bryant , DO Primary Care Provider Active Dr. Champ Giles MD Attending Provider, Referring Provider Active Commercial Credit Lead Relationship Specialty Start Date End Date Lex Bryant [address] [place] [address] PCP - General Family Medicine 04/24/23 Champ Giles MD [address] [facility] [place] [address] Consulting Physician Gynecologic Oncology 04/16/23 Daisy Hopson, MACHINIST OUTSIDE - SUPPLEMENTAL MANAGER [address] [facility] [address] [place] [address] Nurse Practitioner Certified Nurse Practitioner 05/03/23 Commercial Credit Lead Relationship Specialty Start Date End Date Lex Bryant [address] [place] [address] PCP - General Family Medicine 04/24/23 Champ Giles MD [address] [facility] [place] [address] Consulting Physician Gynecologic Oncology 04/16/23 Daisy Hopson, MACHINIST OUTSIDE - SUPPLEMENTAL MANAGER [address] [facility] [address] [place] [address] Nurse Practitioner Certified Nurse Practitioner 05/03/23 Commercial Credit Lead Relationship Specialty Start Date End Date Lex Bryant [address] [facility] [place] [address] PCP - General Family Medicine 04/24/23 Champ Giles MD [address] [facility] [place] [address] Consulting Physician Gynecologic Oncology 04/16/23 Daisy Hopson APRN - SUPPLEMENTAL MANAGER [address] [facility] [address] [place] [address] Nurse Practitioner Certified Nurse Practitioner 05/03/23 Commercial Credit Lead Relationship Specialty Start Date End Date Lex Bryant [address] [facility] [place] [address] PCP - General Family Medicine 04/24/23 Champ Giles MD [address] [facility] [address] [place] [address] Consulting Physician Gynecologic Oncology 04/16/23 Daisy Hopson APRN - SUPPLEMENTAL MANAGER [address] [facility] [address] [place] [address] Nurse Practitioner Certified Nurse Practitioner 05/03/23 Commercial Credit Lead Relationship Specialty Start Date End Date Lex Bryant [address] [facility] [place] [address] PCP - General Family Medicine 04/24/23 Champ Giles MD [address] [facility] [address] [place] [address] Consulting Physician Gynecologic Oncology 04/16/23 Daisy Hopson APRN - SUPPLEMENTAL MANAGER [address] [place] [address] Nurse Practitioner Certified Nurse Practitioner 05/03/23 Team Status: Inactive Member Role Status Dates Dr. Samantha Arango , DO Attending Provider Activ e Team Status: Inactive Member Role Status Dates Dr. Lex Bryant , DO Attending Provider Active Team Status: Inactive Member Role Status Dates Dr. Lex Bryant , DO Primary Care Provider, Referr ing Provider Active Dr. Lurdes Cormier MD Attending Provider Active Team Status: Inactive Member Role Status Dates Dr. Lex Bryant , DO Primary Care Provider Active Dr. Lurdes Cormier MD Attending Provider, Referring Provider Active Commercial Credit Lead Relationship Specialty Start Date End Date Lex Bryant [address] [place] [place] [address] PCP - General Family Medicine 04/24/23 Champ Giles MD [address] [facility] [address] [place] [address] Consulting Physician Gynecologic Oncology 04/16/23 Daisy Hopson APRN - SUPPLEMENTAL MANAGER [address] [place] [address] Nurse Practitioner Certified Nurse Practitioner 05/03/23 Commercial Credit Lead Relationship Specialty Start Date End Date Lex Bryant [address] [place] [place] [address] PCP - General Family Medicine 04/24/23 Champ Giles MD [address] [place] [address] Consulting Physician Gynecologic Oncology 04/16/23 Daisy Hopson APRN - SUPPLEMENTAL MANAGER [address] [place] [address] Nurse Practitioner Certified Nurse Practitioner 05/03/23 Commercial Credit Lead Relationship Specialty Start Date End Date Lex Bryant [address] [facility] [place] [address] PCP - General Family Medicine 04/24/23 Champ Giles MD [address] [facility] [address] [place] [address] Consulting Physician Gynecologic Oncology 04/16/23 Daisy Hopson APRN - SUPPLEMENTAL MANAGER [address] [facility] [address] [place] [address] Nurse Practitioner Certified Nurse Practitioner 05/03/23 Commercial Credit Lead Relationship Specialty Start Date End Date Lex Bryant [address] [place] [address] PCP - General Family Medicine 04/24/23 Champ Giles MD [address] [facility] [address] [place] [address] Consulting Physician Gynecologic Oncology 04/16/23 Daisy Hopson APRN - SUPPLEMENTAL MANAGER [address] [facility] [address] [place] [address] Nurse Practitioner Certified Nurse Practitioner 05/03/23 Cheryle Reynoso MACHINIST OUTSIDE - SUPPLEMENTAL MANAGER [address] [facility] [address] [place] [address] Nurse Practitioner Nurse Practitioner 07/21/24 Commercial Credit Lead Relationship Specialty Start Date End Date Lex Bryant [address] [facility] [place] [address] PCP - General Family Medicine 04/24/23 Champ Giles MD [address] [facility] [address] [place] [address] Consulting Physician Gynecologic Oncology 04/16/23 Daisy Hopson MACHINIST OUTSIDE - SUPPLEMENTAL MANAGER [address] [facility] [address] [place], [place] [id number] Nurse Practitioner Certified Nurse Practitioner 05/03/23 Cheryle Reynoso MACHINIST OUTSIDE - SUPPLEMENTAL MANAGER [address] [facility] [address] [place], [place] [id number] Nurse Practitioner Nurse Practitioner 07/21/24 Team Status: Active Member Role Status Dates Dr. Lex Bryant DO Primary Care Provider Active Start: September 21, 2024 Dr. New Ibrahim DO Attending Provider Active Start: September 21, 2024 Dr. New Ibrahim DO Referring Provider Active Start: September 21, 2024 Team Status: Inactive Member Role Status Dates Dr. Lex Bryant DO Primary Care Provider Active Start: September 22, 2024 End: September 22, 2024 Dr. Lex Bryant DO Referring Provider Active Start: September 22, 2024 End: September 22, 2024 Dr. Lurdes Cormier MD Attending Provider Active Start: September 22, 2024 End: September 22, 2024 Team Status: Inactive Member Role Status Dates Dr. Lex Bryant DO Primary Care Provider Active Start: September 22, 2024 End: September 22, 2024 Dr. Lurdes Cormier MD Attending Provider Active Start: September 22, 2024 End: September 22, 2024 Dr. Lurdes Cormier MD Referring Provider Active Start: September 22, 2024 End: September 22, 2024 Team Status: Inactive Member Role Status Dates Dr. Lex Bryant DO Primary Care Provider Active Start: September 23, 2024 End: September 23, 2024 Dr. New Ibrahim DO Attending Provider Active Start: September 23, 2024 End: September 23, 2024 Dr. New Ibrahim DO Referring Provider Active Start: September 23, 2024 End: September 23, 2024 Team Status: Active Member Role Status Dates Dr. Lex Bryant DO Primary Care Provider Active Start: September 23, 2024 Dr. New Ibrahim DO Attending Provider Active Start: September 23, 2024 Dr. New Ibrahim DO Referring Provider Active Start: September 23, 2024 Team Status: Inactive Member Role Status Dates Dr. Lex Bryant DO Primary Care Provider Active Start: September 24, 2024 End: September 24, 2024 Dr. Lex Bryant DO Referring Provider Active Start: September 24, 2024 End: September 24, 2024 Alley Walden NP, DIALYSIS CHIEF EQUIPMENT TECHNICIAN-C Attending Provider Active Start: September 24, 2024 End: September 24, 2024 Team Status: Active Member Role Status Dates Dr. Lex Bryant DO Primary Care Provider Active Start: November 17, 2024 Dr. New Ibrahim DO Attending Provider Active Start: November 17, 2024 Dr. New Ibrahim DO Referring Provider Active Start: November 17, 2024 Team Status: Active Member Role Status Dates Dr. New Ibrahim DO Attending Provider Active Start: January 07, 2025 Dr. New Ibrahim DO Referring Provider Active Start: January 07, 2025 Dr. Lex Bryant DO Primary Care Provider Active Start: January 07, 2025 Team Status: Inactive Member Role Status Dates Dr. Lex Bryant DO Primary Care Provider Active Start: March 11, 2025 End: March 11, 2025 Dr. Lex Bryant DO Referring Provider Active Start: March 11, 2025 End: March 11, 2025 Alley Walden DIALYSIS CHIEF EQUIPMENT TECHNICIAN, DIALYSIS CHIEF EQUIPMENT TECHNICIAN-C Attending Provider Active Start: March 11, 2025 End: March 11, 2025 Team Status: Active Member Role Status Dates Dr. New Ibrahim DO Attending Provider Active Start: March 11, 2025 Dr. New Ibrahim DO Referring Provider Active Start: March 11, 2025 Dr. Lex Bryant DO Primary Care Provider Active Start: March 11, 2025 Team Status: Inactive Member Role Status Dates Dr. Lex Bryant DO Primary Care Provider Active Start: March 12, 2025 End: March 12, 2025 Dr. Lex Bryant DO Referring Provider Active Start: March 12, 2025 End: March 12, 2025 Dr. Lurdes Cormier MD Attending Provider Active Start: March 12, 2025 End: March 12, 2025 Team Status: Inactive Member Role Status Dates Dr. Lex Bryant DO Primary Care Provider Active Start: March 17, 2025 End: March 17, 2025 Dr. Lex Bryant DO Referring Provider Active Start: March 17, 2025 End: March 17, 2025 LINDSEY GeorgeC Attending Provider Active Start: March 17, 2025 End: March 17, 2025 Team Status: Inactive Member Role Status Dates Dr. Lex Bryant DO Primary Care Provider Active Start: April 01, 2025 End: April 01, 2025 Dr. Lex Bryant DO Referring Provider Active Start: April 01, 2025 End: April 01, 2025 Alley Walden NP DIALYSIS CHIEF EQUIPMENT TECHNICIAN-C Attending Provider Active Start: April 01, 2025 End: April 01, 2025 Team Status: Active Member Role Status Dates Dr. New Ibrahim DO Attending Provider Active Start: April 01, 2025 Dr. New Ibrahim DO Referring Provider Active Start: April 01, 2025 Dr. Lex Bryant DO Primary Care Provider Active Start: April 01, 2025 Team Status: Active Member Role/Relationship Status Dates Dr. Lex Bryant DO Primary Care Provider Active Team Status: Inactive Member Role/Relationship Status Dates Dr. Lex Bryant DO Primary Care Provider Active Start: December 28, 2024 End: December 28, 2024 Dr. Lex Bryant DO Referring Provider Active Start: December 28, 2024 End: December 28, 2024 LINDSEY GeorgeC Attending Provider Active Start: December 28, 2024 End: December 28, 2024 Team Status: Inactive Member Role/Relationship Status Dates Dr. Lex Bryant DO Primary Care Provider Active Start: January 07, 2025 End: January 07, 2025 Dr. Lex Bryant DO Referring Provider Active Start: January 07, 2025 End: January 07, 2025 Alley Walden NP DIALYSIS CHIEF EQUIPMENT TECHNICIAN-C Attending Provider Active Start: January 07, 2025 End: January 07, 2025 Team Status: Inactive Member Role/Relationship Status Dates Dr. Lex Bryant DO Primary Care Provider Active Start: January 12, 2025 End: January 12, 2025 Dr. Lex Bryant DO Referring Provider Active Start: January 12, 2025 End: January 12, 2025 Dr. Patrick Peres DO Attending Provider Active Start: January 12, 2025 End: January 12, 2025 Team Status: Active Member Role/Relationship Status Dates Dr. Lex Bryant DO Primary Care Provider Active Start: January 12, 2025 Dr. Lex Bryant DO Referring Provider Active Start: January 12, 2025 Dr. Patrick Peres DO Attending Provider Active Start: January 12, 2025 Dr. Patrick Peres DO Other Provider Active St art: January 12, 2025 Team Status: Inactive Member Role/Relationship Status Dates Dr. Lex Bryant DO Primary Care Provider Active Start: January 25, 2025 End: January 25, 2025 Dr. Lex Bryant DO Referring Provider Active Start: January 25, 2025 End: January 25, 2025 Dr. Samantha Arango DO Attending Provider Activ e Start: January 25, 2025 End: January 25, 2025 Team Status: Inactive Member Role/Relationship Status Dates Dr. Lex Bryant DO Primary Care Provider Active Start: January 28, 2025 End: January 28, 2025 Dr. Lex Bryant DO Referring Provider Active Start: January 28, 2025 End: January 28, 2025 Alley Walden NP DIALYSIS CHIEF EQUIPMENT TECHNICIAN-C Attending Provider Active Start: January 28, 2025 End: January 28, 2025 Team Status: Inactive Member Role/Relationship Status Dates Dr. Lex Bryant DO Primary Care Provider Active Start: February 02, 2025 End: February 02, 2025 Dr. Lex Bryant DO Referring Provider Active Start: February 02, 2025 End: February 02, 2025 SKYLA George Attending Provider Active Start: February 02, 2025 End: February 02, 2025 Team Status: Inactive Member Role/Relationship Status Dates Dr. Lex Bryant DO Primary Care Provider Active Start: February 02, 2025 End: February 02, 2025 SKYLA George Attending Provider Active Start: February 02, 2025 End: February 02, 2025 SKYLA George Referring Provider Active Start: February 02, 2025 End: February 02, 2025 Team Status: Inactive Member Role/Relationship Status Dates Dr. Lex Bryant DO Primary Care Provider Active Start: February 12, 2025 End: February 12, 2025 Alley Win DIALYSIS CHIEF EQUIPMENT TECHNICIAN, DIALYSIS CHIEF EQUIPMENT TECHNICIAN-C Attending Provider Active Start: February 12, 2025 End: February 12, 2025 Alley Win DIALYSIS CHIEF EQUIPMENT TECHNICIAN, DIALYSIS CHIEF EQUIPMENT TECHNICIAN-C Referring Provider Active Start: February 12, 2025 End: February 12, 2025 Team Status: Active Member Role/Relationship Status Dates Dr. Lex Bryant DO Primary Care Provider Active Start: February 12, 2025 Dr. Capo Xiong MD Attending Provider Active S tart: February 12, 2025 Team Status: Inactive Member Role/Relationship Status Dates Dr. Lex Bryant DO Primary Care Provider Active Start: February 18, 2025 End: February 18, 2025 Dr. Lex Bryant DO Referring Provider Active Start: February 18, 2025 End: February 18, 2025 Dr. Em Torres MD Attending Provider Active Start: February 18, 2025 End: February 18, 2025 Team Status: Inactive Member Role/Relationship Status Dates Dr. Lex Bryant DO Primary Care Provider Active Start: March 02, 2025 End: March 02, 2025 Alley Win DIALYSIS CHIEF EQUIPMENT TECHNICIAN, DIALYSIS CHIEF EQUIPMENT TECHNICIAN-C Attending Provider Active Start: March 02, 2025 End: March 02, 2025 Alley Win DIALYSIS CHIEF EQUIPMENT TECHNICIAN, DIALYSIS CHIEF EQUIPMENT TECHNICIAN-C Referring Provider Active Start: March 02, 2025 End: March 02, 2025 Team Status: Inactive Member Role/Relationship Status Dates Dr. Lex Bryant DO Primary Care Provider Active Start: March 11, 2025 End: March 11, 2025 Dr. Lex Bryant DO Referring Provider Active Start: March 11, 2025 End: March 11, 2025 Alley Win DIALYSIS CHIEF EQUIPMENT TECHNICIAN, DIALYSIS CHIEF EQUIPMENT TECHNICIAN-C Attending Provider Active Start: March 11, 2025 End: March 11, 2025 Team Status: Inactive Member Role/Relationship Status Dates Dr. Lex Bryant DO Primary Care Provider Active Start: March 12, 2025 End: March 12, 2025 Dr. Lex Bryant DO Referring Provider Active Start: March 12, 2025 End: March 12, 2025 Dr. Lurdes Cormier MD Attending Provider Active Start: March 12, 2025 End: March 12, 2025 Team Status: Inactive Member Role/Relationship Status Dates Dr. Lex Bryant DO Primary Care Provider Active Start: March 17, 2025 End: March 17, 2025 Dr. Lex Bryant DO Referring Provider Active Start: March 17, 2025 End: March 17, 2025 LINDSEY GeorgeC Attending Provider Active Start: March 17, 2025 End: March 17, 2025 Team Status: Inactive Member Role/Relationship Status Dates Dr. eLx Bryant DO Primary Care Provider Active Start: April 01, 2025 End: April 01, 2025 Dr. Lex Bryant DO Referring Provider Active Start: April 01, 2025 End: April 01, 2025 Alley Walden NP, NP-C Attending Provider Active Start: April 01, 2025 End: April 01, 2025 Team Status: Inactive Member Role/Relationship Status Dates Dr. Lex Bryant DO Primary Care Provider Active Start: April 22, 2025 End: April 22, 2025 Dr. Lex Bryant DO Referring Provider Active Start: April 22, 2025 End: April 22, 2025 Dr. Em Torres MD Attending Provider Active Start: April 22, 2025 End: April 22, 2025 Team Status: Active Member Role/Relationship Status Dates Dr. New Ibrahim DO Attending Provider Active Start: April 22, 2025 Dr. New Ibrahim DO Referring Provider Active Start: April 22, 2025 Dr. Lex Bryant DO Primary Care Provider Active Start: April 22, 2025 Team Status: Inactive Member Role/Relationship Status Dates Dr. Lex Bryant DO Primary Care Provider Active Start: January 25, 2025 End: January 25, 2025 Dr. Lex Bryant DO Referring Provider Active Start: January 25, 2025 End: January 25, 2025 Dr. Samantha Arango DO Attending Provider Activ e Start: January 25, 2025 End: January 25, 2025 Team Status: Inactive Member Role/Relationship Status Dates Dr. Lex Bryant DO Primary Care Provider Active Start: January 28, 2025 End: January 28, 2025 Dr. Lex Bryant DO Referring Provider Active Start: January 28, 2025 End: January 28, 2025 Alley Win DIALYSIS CHIEF EQUIPMENT TECHNICIAN, DIALYSIS CHIEF EQUIPMENT TECHNICIAN-C Attending Provider Active Start: January 28, 2025 End: January 28, 2025 Team Status: Inactive Member Role/Relationship Status Dates Dr. Lex Bryant DO Primary Care Provider Active Start: February 02, 2025 End: February 02, 2025 Dr. Lex Bryant DO Referring Provider Active Start: February 02, 2025 End: February 02, 2025 Samantha Shen DIALYSIS CHIEF EQUIPMENT TECHNICIAN-C Attending Provider Active Start: February 02, 2025 End: February 02, 2025 Team Status: Inactive Member Role/Relationship Status Dates Dr. Lex Bryant DO Primary Care Provider Active Start: February 02, 2025 End: February 02, 2025 Samantha Shen DIALYSIS CHIEF EQUIPMENT TECHNICIAN-C Attending Provider Active Start: February 02, 2025 End: February 02, 2025 Samantha Shen DIALYSIS CHIEF EQUIPMENT TECHNICIAN-C Referring Provider Active Start: February 02, 2025 End: February 02, 2025 Team Status: Inactive Member Role/Relationship Status Dates Dr. Lex Bryant DO Primary Care Provider Active Start: February 12, 2025 End: February 12, 2025 Alleytre Walden DIALYSIS CHIEF EQUIPMENT TECHNICIAN, DIALYSIS CHIEF EQUIPMENT TECHNICIAN-C Attending Provider Active Start: February 12, 2025 End: February 12, 2025 Alley Win DIALYSIS CHIEF EQUIPMENT TECHNICIAN, DIALYSIS CHIEF EQUIPMENT TECHNICIAN-C Referring Provider Active Start: February 12, 2025 End: February 12, 2025 Team Status: Active Member Role/Relationship Status Dates Dr. Lex Bryant DO Primary Care Provider Active Start: February 12, 2025 Dr. Capo Xiong MD Attending Provider Active S tart: February 12, 2025 Team Status: Inactive Member Role/Relationship Status Dates Dr. Lex Bryant DO Primary Care Provider Active Start: February 18, 2025 End: February 18, 2025 Dr. Lex Bryant DO Referring Provider Active Start: February 18, 2025 End: February 18, 2025 Dr. Em Torres MD Attending Provider Active Start: February 18, 2025 End: February 18, 2025 Team Status: Inactive Member Role/Relationship Status Dates Dr. Lex Brynat DO Primary Care Provider Active Start: March 02, 2025 End: March 02, 2025 Alleytre Walden DIALYSIS CHIEF EQUIPMENT TECHNICIAN, DIALYSIS CHIEF EQUIPMENT TECHNICIAN-C Attending Provider Active Start: March 02, 2025 End: March 02, 2025 Alley Walden NP, DIALYSIS CHIEF EQUIPMENT TECHNICIAN-C Referring Provider Active Start: March 02, 2025 End: March 02, 2025 Team Status: Inactive Member Role/Relationship Status Dates Dr. Lex Bryant DO Primary Care Provider Active Start: March 11, 2025 End: March 11, 2025 Dr. Lex Bryant DO Referring Provider Active Start: March 11, 2025 End: March 11, 2025 Alley Walden DIALYSIS CHIEF EQUIPMENT TECHNICIAN, DIALYSIS CHIEF EQUIPMENT TECHNICIAN-C Attending Provider Active Start: March 11, 2025 End: March 11, 2025 Team Status: Inactive Member Role/Relationship Status Dates Dr. Lex Bryant DO Primary Care Provider Active Start: March 12, 2025 End: March 12, 2025 Dr. Lex Bryant DO Referring Provider Active Start: March 12, 2025 End: March 12, 2025 Dr. Lurdes Cormier MD Attending Provider Active Start: March 12, 2025 End: March 12, 2025 Team Status: Inactive Member Role/Relationship Status Dates Dr. Lex Bryant DO Primary Care Provider Active Start: March 17, 2025 End: March 17, 2025 Dr. Lex Bryant DO Referring Provider Active Start: March 17, 2025 End: March 17, 2025 Samantha Shen NP-C Attending Provider Active Start: March 17, 2025 End: March 17, 2025 Team Status: Inactive Member Role/Relationship Status Dates Dr. Lex Bryant DO Primary Care Provider Active Start: April 01, 2025 End: April 01, 2025 Dr. Lex Bryant DO Referring Provider Active Start: April 01, 2025 End: April 01, 2025 Alley Walden DIALYSIS CHIEF EQUIPMENT TECHNICIAN, DIALYSIS CHIEF EQUIPMENT TECHNICIAN-C Attending Provider Active Start: April 01, 2025 End: April 01, 2025 Team Status: Inactive Member Role/Relationship Status Dates Dr. Lex Bryant DO Primary Care Provider Active Start: April 20, 2025 Dr. Aem Landa MD Attending Provider Active Start: April 20, 2025 Team Status: Inactive Member Role/Relationship Status Dates Dr. Lex Bryant DO Primary Care Provider Active Start: April 22, 2025 End: April 22, 2025 Dr. Lex Bryant DO Referring Provider Active Start: April 22, 2025 End: April 22, 2025 Dr. Em Torres MD Attending Provider Active Start: April 22, 2025 End: April 22, 2025 Team Status: Active Member Role/Relationship Status Dates Dr. Lex Bryant DO Primary Care Provider Active Start: May 09, 2025 Dr. Capo Xiong MD Attending Provider Active S tart: May 09, 2025 Team Status: Active Member Role/Relationship Status Dates Dr. Lex Bryant DO Primary Care Provider Active Start: May 10, 2025 Alley Win DIALYSIS CHIEF EQUIPMENT TECHNICIAN, DIALYSIS CHIEF EQUIPMENT TECHNICIAN-C Attending Provider Active Start: May 10, 2025 Alley Win DIALYSIS CHIEF EQUIPMENT TECHNICIAN, DIALYSIS CHIEF EQUIPMENT TECHNICIAN-C Referring Provider Active Start: May 10, 2025 Team Status: Inactive Member Role/Relationship Status Dates Dr. Lex Bryant DO Primary Care Provider Active Start: May 13, 2025 End: May 13, 2025 Dr. Lex Bryant DO Referring Provider Active Start: May 13, 2025 End: May 13, 2025 Alley Win DIALYSIS CHIEF EQUIPMENT TECHNICIAN, DIALYSIS CHIEF EQUIPMENT TECHNICIAN-C Attending Provider Active Start: May 13, 2025 End: May 13, 2025 Team Status: Active Member Role/Relationship Status Dates Dr. New Ibrahim DO Attending Provider Active Start: May 13, 2025 Dr. New Ibrahim DO Referring Provider Active Start: May 13, 2025 Dr. Lex Bryant DO Primary Care Provider Active Start: May 13, 2025 Team Status: Inactive Member Role/Relationship Status Dates Dr. Lex Bryant DO Primary Care Provider Active Start: May 10, 2025 End: May 10, 2025 Alley Win DIALYSIS CHIEF EQUIPMENT TECHNICIAN, DIALYSIS CHIEF EQUIPMENT TECHNICIAN-C Attending Provider Active Start: May 10, 2025 End: May 10, 2025 Alley Win DIALYSIS CHIEF EQUIPMENT TECHNICIAN, DIALYSIS CHIEF EQUIPMENT TECHNICIAN-C Referring Provider Active Start: May 10, 2025 End: May 10, 2025 Team Status: Inactive Member Role/Relationship Status Dates Dr. Lex Bryant DO Primary Care Provider Active Start: February 12, 2025 End: February 12, 2025 Alley Win DIALYSIS CHIEF EQUIPMENT TECHNICIAN, DIALYSIS CHIEF EQUIPMENT TECHNICIAN-C Attending Provider Active Start: February 12, 2025 End: February 12, 2025 Alley Win DIALYSIS CHIEF EQUIPMENT TECHNICIAN, DIALYSIS CHIEF EQUIPMENT TECHNICIAN-C Referring Provider Active Start: February 12, 2025 End: February 12, 2025 Team Status: Active Member Role/Relationship Status Dates Dr. Lex Bryant DO Primary Care Provider Active Start: February 12, 2025 Dr. Capo Xiong MD Attending Provider Active S tart: February 12, 2025 Team Status: Inactive Member Role/Relationship Status Dates Dr. Lex Bryant DO Primary Care Provider Active Start: February 18, 2025 End: February 18, 2025 Dr. Lex Bryant DO Referring Provider Active Start: February 18, 2025 End: February 18, 2025 Dr. Em Torres MD Attending Provider Active Start: February 18, 2025 End: February 18, 2025 Team Status: Inactive Member Role/Relationship Status Dates Dr. Lex Bryant DO Primary Care Provider Active Start: March 02, 2025 End: March 02, 2025 Alley Walden DIALYSIS CHIEF EQUIPMENT TECHNICIAN, DIALYSIS CHIEF EQUIPMENT TECHNICIAN-C Attending Provider Active Start: March 02, 2025 End: March 02, 2025 Alley Walden DIALYSIS CHIEF EQUIPMENT TECHNICIAN, DIALYSIS CHIEF EQUIPMENT TECHNICIAN-C Referring Provider Active Start: March 02, 2025 End: March 02, 2025 Team Status: Inactive Member Role/Relationship Status Dates Dr. Lex Bryant DO Primary Care Provider Active Start: March 11, 2025 End: March 11, 2025 Dr. Lex Bryant DO Referring Provider Active Start: March 11, 2025 End: March 11, 2025 Alley Walden DIALYSIS CHIEF EQUIPMENT TECHNICIAN, DIALYSIS CHIEF EQUIPMENT TECHNICIAN-C Attending Provider Active Start: March 11, 2025 End: March 11, 2025 Team Status: Inactive Member Role/Relationship Status Dates Dr. Lex Bryant DO Primary Care Provider Active Start: March 12, 2025 End: March 12, 2025 Dr. Lex Bryant DO Referring Provider Active Start: March 12, 2025 End: March 12, 2025 Dr. Lurdes Cormier MD Attending Provider Active Start: March 12, 2025 End: March 12, 2025 Team Status: Inactive Member Role/Relationship Status Dates Dr. Lex Bryant DO Primary Care Provider Active Start: March 17, 2025 End: March 17, 2025 Dr. Lex Bryant DO Referring Provider Active Start: March 17, 2025 End: March 17, 2025 Samantha Shen NP-C Attending Provider Active Start: March 17, 2025 End: March 17, 2025 Team Status: Inactive Member Role/Relationship Status Dates Dr. Lex Bryant DO Primary Care Provider Active Start: April 01, 2025 End: April 01, 2025 Dr. Lex Bryant DO Referring Provider Active Start: April 01, 2025 End: April 01, 2025 Alley Walden DIALYSIS CHIEF EQUIPMENT TECHNICIAN, DIALYSIS CHIEF EQUIPMENT TECHNICIAN-C Attending Provider Active Start: April 01, 2025 End: April 01, 2025 Team Status: Inactive Member Role/Relationship Status Dates Dr. Lex Bryant DO Primary Care Provider Active Start: April 20, 2025 Dr. Ame Landa MD Attending Provider Active Start: April 20, 2025 Team Status: Inactive Member Role/Relationship Status Dates Dr. Lex Bryant DO Primary Care Provider Active Start: April 22, 2025 End: April 22, 2025 Dr. Lex Bryant DO Referring Provider Active Start: April 22, 2025 End: April 22, 2025 Dr. Em Torres MD Attending Provider Active Start: April 22, 2025 End: April 22, 2025 Team Status: Active Member Role/Relationship Status Dates Dr. Lex Bryant DO Primary Care Provider Active Start: May 09, 2025 Dr. Capo Xiong MD Attending Provider Active S tart: May 09, 2025 Team Status: Inactive Member Role/Relationship Status Dates Dr. Lex Bryant DO Primary Care Provider Active Start: May 10, 2025 End: May 10, 2025 Alleytre Walden DIALYSIS CHIEF EQUIPMENT TECHNICIAN, DIALYSIS CHIEF EQUIPMENT TECHNICIAN-C Attending Provider Active Start: May 10, 2025 End: May 10, 2025 Alley Win DIALYSIS CHIEF EQUIPMENT TECHNICIAN, DIALYSIS CHIEF EQUIPMENT TECHNICIAN-C Referring Provider Active Start: May 10, 2025 End: May 10, 2025 Team Status: Inactive Member Role/Relationship Status Dates Dr. Lex Bryant DO Primary Care Provider Active Start: May 13, 2025 End: May 13, 2025 Dr. Lex Bryant DO Referring Provider Active Start: May 13, 2025 End: May 13, 2025 Alleytre Walden DIALYSIS CHIEF EQUIPMENT TECHNICIAN, DIALYSIS CHIEF EQUIPMENT TECHNICIAN-C Attending Provider Active Start: May 13, 2025 End: May 13, 2025 Team Status: Inactive Member Role/Relationship Status Dates Dr. Lex Bryant DO Primary Care Provider Active Start: June 03, 2025 End: June 03, 2025 Dr. Lex Bryant DO Referring Provider Active Start: June 03, 2025 End: June 03, 2025 Dr. Em Torres MD Attending Provider Active Start: June 03, 2025 End: June 03, 2025 Team Status: Active Member Role/Relationship Status Dates Dr. New Ibrahim DO Attending Provider Active Start: June 03, 2025 Dr. New Ibrahim DO Referring Provider Active Start: June 03, 2025 Dr. Lex Bryant DO Primary Care Provider Active Start: June 03, 2025 Team Status: Inactive Member Role/Relationship Status Dates Dr. Lex Bryant DO Primary Care Provider Active Start: February 18, 2025 End: February 18, 2025 Dr. Lex Bryant DO Referring Provider Active Start: February 18, 2025 End: February 18, 2025 Dr. Em Torres MD Attending Provider Active Start: February 18, 2025 End: February 18, 2025 Team Status: Inactive Member Role/Relationship Status Dates Dr. Lex Bryant DO Primary Care Provider Active Start: March 02, 2025 End: March 02, 2025 Alley Win DIALYSIS CHIEF EQUIPMENT TECHNICIAN, DIALYSIS CHIEF EQUIPMENT TECHNICIAN-C Attending Provider Active Start: March 02, 2025 End: March 02, 2025 Alley Win DIALYSIS CHIEF EQUIPMENT TECHNICIAN, DIALYSIS CHIEF EQUIPMENT TECHNICIAN-C Referring Provider Active Start: March 02, 2025 End: March 02, 2025 Team Status: Inactive Member Role/Relationship Status Dates Dr. Lex Bryant DO Primary Care Provider Active Start: March 11, 2025 End: March 11, 2025 Dr. Lex Bryant DO Referring Provider Active Start: March 11, 2025 End: March 11, 2025 Alley Win DIALYSIS CHIEF EQUIPMENT TECHNICIAN, DIALYSIS CHIEF EQUIPMENT TECHNICIAN-C Attending Provider Active Start: March 11, 2025 End: March 11, 2025 Team Status: Inactive Member Role/Relationship Status Dates Dr. Lex Bryant DO Primary Care Provider Active Start: March 12, 2025 End: March 12, 2025 Dr. Lex Bryant DO Referring Provider Active Start: March 12, 2025 End: March 12, 2025 Dr. Lurdes Cormier MD Attending Provider Active Start: March 12, 2025 End: March 12, 2025 Team Status: Inactive Member Role/Relationship Status Dates Dr. Lex Bryant DO Primary Care Provider Active Start: March 17, 2025 End: March 17, 2025 Dr. Lex Bryant DO Referring Provider Active Start: March 17, 2025 End: March 17, 2025 Samantha Shen NP-C Attending Provider Active Start: March 17, 2025 End: March 17, 2025 Team Status: Inactive Member Role/Relationship Status Dates Dr. Lex Bryant DO Primary Care Provider Active Start: April 01, 2025 End: April 01, 2025 Dr. Lex Bryant DO Referring Provider Active Start: April 01, 2025 End: April 01, 2025 Alley Walden DIALYSIS CHIEF EQUIPMENT TECHNICIAN, DIALYSIS CHIEF EQUIPMENT TECHNICIAN-C Attending Provider Active Start: April 01, 2025 End: April 01, 2025 Team Status: Inactive Member Role/Relationship Status Dates Dr. Lex Bryant DO Primary Care Provider Active Start: April 20, 2025 Dr. Ame Landa MD Attending Provider Active Start: April 20, 2025 Team Status: Inactive Member Role/Relationship Status Dates Dr. Lex Bryant DO Primary Care Provider Active Start: April 22, 2025 End: April 22, 2025 Dr. Lex Bryant DO Referring Provider Active Start: April 22, 2025 End: April 22, 2025 Dr. Em Torres MD Attending Provider Active Start: April 22, 2025 End: April 22, 2025 Team Status: Active Member Role/Relationship Status Dates Dr. Lex Bryant DO Primary Care Provider Active Start: May 09, 2025 Dr. Capo Xiong MD Attending Provider Active S tart: May 09, 2025 Team Status: Inactive Member Role/Relationship Status Dates Dr. Lex Bryant DO Primary Care Provider Active Start: May 10, 2025 End: May 10, 2025 Alley Win DIALYSIS CHIEF EQUIPMENT TECHNICIAN, DIALYSIS CHIEF EQUIPMENT TECHNICIAN-C Attending Provider Active Start: May 10, 2025 End: May 10, 2025 Alley Win DIALYSIS CHIEF EQUIPMENT TECHNICIAN, DIALYSIS CHIEF EQUIPMENT TECHNICIAN-C Referring Provider Active Start: May 10, 2025 End: May 10, 2025 Team Status: Inactive Member Role/Relationship Status Dates Dr. Lex Bryant DO Primary Care Provider Active Start: May 13, 2025 End: May 13, 2025 Dr. Lex Bryant DO Referring Provider Active Start: May 13, 2025 End: May 13, 2025 Alley Walden DIALYSIS CHIEF EQUIPMENT TECHNICIAN, DIALYSIS CHIEF EQUIPMENT TECHNICIAN-C Attending Provider Active Start: May 13, 2025 End: May 13, 2025 Team Status: Inactive Member Role/Relationship Status Dates Dr. Lex Bryant DO Primary Care Provider Active Start: June 03, 2025 End: June 03, 2025 Dr. Lex Bryant DO Referring Provider Active Start: June 03, 2025 End: June 03, 2025 Dr. Em Torres MD Attending Provider Active Start: June 03, 2025 End: June 03, 2025 Team Status: Active Member Role/Relationship Status Dates Dr. New Ibrahim DO Attending Provider Active Start: June 03, 2025 Dr. New Ibrahim DO Referring Provider Active Start: June 03, 2025 Dr. Lex Bryant DO Primary Care Provider Active Start: June 03, 2025 Team Status: Inactive Member Role/Relationship Status Dates Dr. Lex Bryant DO Primary Care Provider Active Start: June 17, 2025 End: June 17, 2025 Dr. Lex Bryant DO Referring Provider Active Start: June 17, 2025 End: June 17, 2025 Samantha Shen NP-C Attending Provider Active Start: June 17, 2025 End: June 17, 2025 Team Status: Inactive Member Role/Relationship Status Dates Dr. Lex Bryant DO Primary Care Provider Active Start: March 02, 2025 End: March 02, 2025 Alley Walden DIALYSIS CHIEF EQUIPMENT TECHNICIAN, DIALYSIS CHIEF EQUIPMENT TECHNICIAN-C Attending Provider Active Start: March 02, 2025 End: March 02, 2025 Alley Walden DIALYSIS CHIEF EQUIPMENT TECHNICIAN, DIALYSIS CHIEF EQUIPMENT TECHNICIAN-C Referring Provider Active Start: March 02, 2025 End: March 02, 2025 Team Status: Inactive Member Role/Relationship Status Dates Dr. Lex Bryant DO Primary Care Provider Active Start: March 11, 2025 End: March 11, 2025 Dr. Lex Bryant DO Referring Provider Active Start: March 11, 2025 End: March 11, 2025 Alley Walden DIALYSIS CHIEF EQUIPMENT TECHNICIAN, DIALYSIS CHIEF EQUIPMENT TECHNICIAN-C Attending Provider Active Start: March 11, 2025 End: March 11, 2025 Team Status: Inactive Member Role/Relationship Status Dates Dr. Lex Bryant DO Primary Care Provider Active Start: March 12, 2025 End: March 12, 2025 Dr. Lex Bryant DO Referring Provider Active Start: March 12, 2025 End: March 12, 2025 Dr. Lurdes Cormier MD Attending Provider Active Start: March 12, 2025 End: March 12, 2025 Team Status: Inactive Member Role/Relationship Status Dates Dr. Lex Bryant DO Primary Care Provider Active Start: March 17, 2025 End: March 17, 2025 Dr. Lex Bryant DO Referring Provider Active Start: March 17, 2025 End: March 17, 2025 Samantha Shen NP-C Attending Provider Active Start: March 17, 2025 End: March 17, 2025 Team Status: Inactive Member Role/Relationship Status Dates Dr. Lex Bryant DO Primary Care Provider Active Start: April 01, 2025 End: April 01, 2025 Dr. Lex Bryant DO Referring Provider Active Start: April 01, 2025 End: April 01, 2025 Alley Walden NP, DIALYSIS CHIEF EQUIPMENT TECHNICIAN-C Attending Provider Active Start: April 01, 2025 End: April 01, 2025 Team Status: Inactive Member Role/Relationship Status Dates Dr. Lex Bryant DO Primary Care Provider Active Start: April 20, 2025 Dr. Ame Landa MD Attending Provider Active Start: April 20, 2025 Team Status: Inactive Member Role/Relationship Status Dates Dr. Lex Bryant DO Primary Care Provider Active Start: April 22, 2025 End: April 22, 2025 Dr. Lex Bryant DO Referring Provider Active Start: April 22, 2025 End: April 22, 2025 Dr. Em Torres MD Attending Provider Active Start: April 22, 2025 End: April 22, 2025 Team Status: Active Member Role/Relationship Status Dates Dr. Lex Bryant DO Primary Care Provider Active Start: May 09, 2025 Dr. Capo Xiong MD Attending Provider Active S tart: May 09, 2025 Team Status: Inactive Member Role/Relationship Status Dates Dr. Lex Bryant DO Primary Care Provider Active Start: May 10, 2025 End: May 10, 2025 Alley Walden NP, DIALYSIS CHIEF EQUIPMENT TECHNICIAN-C Attending Provider Active Start: May 10, 2025 End: May 10, 2025 Alley Walden NP DIALYSIS CHIEF EQUIPMENT TECHNICIAN-C Referring Provider Active Start: May 10, 2025 End: May 10, 2025 Team Status: Inactive Member Role/Relationship Status Dates Dr. Lex Bryant DO Primary Care Provider Active Start: May 13, 2025 End: May 13, 2025 Dr. Lex Bryant DO Referring Provider Active Start: May 13, 2025 End: May 13, 2025 Alley Walden NP DIALYSIS CHIEF EQUIPMENT TECHNICIAN-C Attending Provider Active Start: May 13, 2025 End: May 13, 2025 Team Status: Inactive Member Role/Relationship Status Dates Dr. Lex Bryant DO Primary Care Provider Active Start: June 03, 2025 End: June 03, 2025 Dr. Lex Bryant DO Referring Provider Active Start: June 03, 2025 End: June 03, 2025 Dr. Em Torres MD Attending Provider Active Start: June 03, 2025 End: June 03, 2025 Team Status: Inactive Member Role/Relationship Status Dates Dr. Lex Bryant DO Primary Care Provider Active Start: June 17, 2025 End: June 17, 2025 Dr. Lex Bryant DO Referring Provider Active Start: June 17, 2025 End: June 17, 2025 LINDSEY GeorgeC Attending Provider Active Start: June 17, 2025 End: June 17, 2025 Team Status: Inactive Member Role/Relationship Status Dates Dr. Lex Bryant DO Primary Care Provider Active Start: June 24, 2025 End: June 24, 2025 Dr. Lex Bryant DO Referring Provider Active Start: June 24, 2025 End: June 24, 2025 Dr. New Ibrahim DO Attending Provider Active Start: June 24, 2025 End: June 24, 2025 Team Status: Active Member Role/Relationship Status Dates Dr. Lex Bryant DO Primary Care Provider Active Start: June 24, 2025 Dr. Em Torres MD Attending Provider Active Start: June 24, 2025 Team Status: Active Member Role/Relationship Status Dates Dr. New Ibrahim DO Attending Provider Active Start: June 24, 2025 Dr. New Ibrahim DO Referring Provider Active Start: June 24, 2025 Dr. Lex Bryant DO Primary Care Provider Active Start: June 24, 2025 Team Status: Inactive Member Role/Relationship Status Dates Dr. Lex Bryant DO Primary Care Provider Active Start: June 24, 2025 End: June 24, 2025 Dr. Lex Bryant DO Referring Provider Active Start: June 24, 2025 End: June 24, 2025 Dr. Em Torres MD Attending Provider Active Start: June 24, 2025 End: June 24, 2025 Team Status: Active Member Role/Relationship Status Dates Dr. Lex Bryant DO Primary care physician Active Team Status: Inactive Member Role/Relationship Status Dates Dr. Lex Bryant DO Primary care physician Active Start: April 01, 2025 End: April 01, 2025 Dr. Lex Bryant DO Referring Provider Active Start: April 01, 2025 End: April 01, 2025 Alley Walden DIALYSIS CHIEF EQUIPMENT TECHNICIAN, DIALYSIS CHIEF EQUIPMENT TECHNICIAN-C Attending physician Active Start: April 01, 2025 End: April 01, 2025 Team Status: Inactive Member Role/Relationship Status Dates Dr. Lex Bryant DO Primary care physician Active Start: April 20, 2025 Dr. Ame Landa MD Attending physician Active Start: April 20, 2025 Team Status: Inactive Member Role/Relationship Status Dates Dr. Lex Bryant DO Primary care physician Active Start: April 22, 2025 End: April 22, 2025 Dr. Lex Bryant DO Referring Provider Active Start: April 22, 2025 End: April 22, 2025 Dr. Em Torres MD Attending physician Active Start: April 22, 2025 End: April 22, 2025 Team Status: Active Member Role/Relationship Status Dates Dr. Lex Bryant DO Primary care physician Active Start: May 09, 2025 Dr. Capo Xiong MD Attending physician Active Start: May 09, 2025 Team Status: Inactive Member Role/Relationship Status Dates Dr. Lex Bryant DO Primary care physician Active Start: May 10, 2025 End: May 10, 2025 Alleytre Walden DIALYSIS CHIEF EQUIPMENT TECHNICIAN, DIALYSIS CHIEF EQUIPMENT TECHNICIAN-C Attending physician Active Start: May 10, 2025 End: May 10, 2025 Alleytre Walden DIALYSIS CHIEF EQUIPMENT TECHNICIAN, DIALYSIS CHIEF EQUIPMENT TECHNICIAN-C Referring Provider Active Start: May 10, 2025 End: May 10, 2025 Team Status: Inactive Member Role/Relationship Status Dates Dr. Lex Bryant DO Primary care physician Active Start: May 13, 2025 End: May 13, 2025 Dr. Lex Bryant DO Referring Provider Active Start: May 13, 2025 End: May 13, 2025 Alley Walden NP DIALYSIS CHIEF EQUIPMENT TECHNICIAN-C Attending physician Active Start: May 13, 2025 End: May 13, 2025 Team Status: Inactive Member Role/Relationship Status Dates Dr. Lex Bryant DO Primary care physician Active Start: June 03, 2025 End: June 03, 2025 Dr. Lex Bryant DO Referring Provider Active Start: June 03, 2025 End: June 03, 2025 Dr. Em Torres MD Attending physician Active Start: June 03, 2025 End: June 03, 2025 Team Status: Inactive Member Role/Relationship Status Dates Dr. Lex Bryant DO Primary care physician Active Start: June 17, 2025 End: June 17, 2025 Dr. Lex Bryant DO Referring Provider Active Start: June 17, 2025 End: June 17, 2025 Samantha Shen NP-C Attending physician Active Start: June 17, 2025 End: June 17, 2025 Team Status: Inactive Member Role/Relationship Status Dates Dr. Lex Bryant DO Primary care physician Active Start: June 24, 2025 End: June 24, 2025 Dr. Lex Bryant DO Referring Provider Active Start: June 24, 2025 End: June 24, 2025 Dr. New Ibrahim DO Attending physician Active Start: June 24, 2025 End: June 24, 2025 Team Status: Inactive Member Role/Relationship Status Dates Dr. Lex Bryant DO Primary care physician Active Start: June 24, 2025 End: June 24, 2025 Dr. Lex Bryant DO Referring Provider Active Start: June 24, 2025 End: June 24, 2025 Dr. Em Torres MD Attending physician Active Start: June 24, 2025 End: June 24, 2025 Team Status: Active Member Role/Relationship Status Dates Dr. New Ibrahim DO Attending physician Active Start: June 24, 2025 Dr. New Ibrahim DO Referring Provider Active Start: June 24, 2025 Dr. Lex Bryant DO Primary care physician Active Start: June 24, 2025 Team Status: Active Member Role/Relationship Status Dates Dr. Lex Bryant DO Primary care physician Active Start: July 26, 2025 Dr. New Ibrahim DO Attending physician Active Start: July 26, 2025 Dr. New Ibrahim , Referring Provider Active Start: July 26, 2025 Team Status: Inactive Member Role/Relationship Status Dates Dr. Lex Bryant DO Primary care physician Active Start: July 26, 2025 End: July 26, 2025 Dr. Lex Bryant DO Referring Provider Active Start: July 26, 2025 End: July 26, 2025 Dr. Samantha Arango DO Attending physician Acti ve Start: July 26, 2025 End: July 26, 2025 Team Status: Inactive Member Role/Relationship Status Dates Dr. Lex Bryant DO Primary care physician Active Start: April 20, 2025 Dr. Ame Landa MD Attending physician Active Start: April 20, 2025 Team Status: Inactive Member Role/Relationship Status Dates Dr. Lex Bryant DO Primary care physician Active Start: April 22, 2025 End: April 22, 2025 Dr. Lex Bryant DO Referring Provider Active Start: April 22, 2025 End: April 22, 2025 Dr. Em Torres MD Attending physician Active Start: April 22, 2025 End: April 22, 2025 Team Status: Active Member Role/Relationship Status Dates Dr. Lex Bryant DO Primary care physician Active Start: May 09, 2025 Dr. Capo Xiong MD Attending physician Active Start: May 09, 2025 Team Status: Inactive Member Role/Relationship Status Dates Dr. Lex Bryant DO Primary care physician Active Start: May 10, 2025 End: May 10, 2025 Alley Win DIALYSIS CHIEF EQUIPMENT TECHNICIAN, DIALYSIS CHIEF EQUIPMENT TECHNICIAN-C Attending physician Active Start: May 10, 2025 End: May 10, 2025 Alley Win DIALYSIS CHIEF EQUIPMENT TECHNICIAN, DIALYSIS CHIEF EQUIPMENT TECHNICIAN-C Referring Provider Active Start: May 10, 2025 End: May 10, 2025 Team Status: Inactive Member Role/Relationship Status Dates Dr. Lex Bryant DO Primary care physician Active Start: May 13, 2025 End: May 13, 2025 Dr. Lex Bryant DO Referring Provider Active Start: May 13, 2025 End: May 13, 2025 Alley Walden NP, DIALYSIS CHIEF EQUIPMENT TECHNICIAN-C Attending physician Active Start: May 13, 2025 End: May 13, 2025 Team Status: Inactive Member Role/Relationship Status Dates Dr. Lex Bryant DO Primary care physician Active Start: June 03, 2025 End: June 03, 2025 Dr. Lex Bryant DO Referring Provider Active Start: June 03, 2025 End: June 03, 2025 Dr. Em Torres MD Attending physician Active Start: June 03, 2025 End: June 03, 2025 Team Status: Inactive Member Role/Relationship Status Dates Dr. Lex Bryant DO Primary care physician Active Start: June 17, 2025 End: June 17, 2025 Dr. Lex Bryant DO Referring Provider Active Start: June 17, 2025 End: June 17, 2025 Samantha Shen NP-C Attending physician Active Start: June 17, 2025 End: June 17, 2025 Team Status: Inactive Member Role/Relationship Status Dates Dr. Lex Bryant DO Primary care physician Active Start: June 24, 2025 End: June 24, 2025 Dr. Lex Bryant DO Referring Provider Active Start: June 24, 2025 End: June 24, 2025 Dr. New Ibrahim DO Attending physician Active Start: June 24, 2025 End: June 24, 2025 Team Status: Inactive Member Role/Relationship Status Dates Dr. Lex Bryant DO Primary care physician Active Start: June 24, 2025 End: June 24, 2025 Dr. Lex Bryant DO Referring Provider Active Start: June 24, 2025 End: June 24, 2025 Dr. Em Torres MD Attending physician Active Start: June 24, 2025 End: June 24, 2025 Team Status: Inactive Member Role/Relationship Status Dates Dr. Lex Bryant DO Primary care physician Active Start: July 26, 2025 End: July 26, 2025 Dr. New Ibrahim DO Attending physician Active Start: July 26, 2025 End: July 26, 2025 Dr. New Ibrahim DO Referring Provider Active Start: July 26, 2025 End: July 26, 2025 Team Status: Inactive Member Role/Relationship Status Dates Dr. Lex Bryant DO Primary care physician Active Start: July 26, 2025 End: July 26, 2025 Dr. Lex Bryant DO Referring Provider Active Start: July 26, 2025 End: July 26, 2025 Dr. Samantha Arango DO Attending physician Acti ve Start: July 26, 2025 End: July 26, 2025 Team Status: Inactive Member Role/Relationship Status Dates Dr. Lex Bryant DO Primary care physician Active Start: July 30, 2025 End: July 30, 2025 Dr. Lex Bryant DO Referring Provider Active Start: July 30, 2025 End: July 30, 2025 Dr. Capo Xiong MD Attending physician Active Start: July 30, 2025 End: July 30, 2025 Team Status: Inactive Member Role/Relationship Status Dates Dr. Lex Bryant DO Primary care physician Active Start: July 30, 2025 End: July 30, 2025 Dr. Em Torres MD Attending physician Active Start: July 30, 2025 End: July 30, 2025 Dr. Em Torres MD Referring Provider Active Start: July 30, 2025 End: July 30, 2025 Team Status: Inactive Member Role/Relationship Status Dates Dr. Lex Bryant DO Primary care physician Active Start: August 04, 2025 End: August 04, 2025 Dr. New Ibrahim DO Nurse Practitioner Active Start: August 04, 2025 End: August 04, 2025 Dr. Em Torres MD Attending physician Active Start: August 04, 2025 End: August 04, 2025 Dr. Em Torres MD Referring Provider Active Start: August 04, 2025 End: August 04, 2025 Team Status: Inactive Member Role/Relationship Status Dates Dr. Lex Bryant DO Primary care physician Active Start: August 05, 2025 End: August 05, 2025 Dr. Lex Bryant DO Referring Provider Active Start: August 05, 2025 End: August 05, 2025 Dr. Em Torres MD Attending physician Active Start: August 05, 2025 End: August 05, 2025 Team Status: Active Member Role/Relationship Status Dates Dr. New Ibrahim DO Attending physician Active Start: August 05, 2025 Dr. New Ibrahim DO Referring Provider Active Start: August 05, 2025 Dr. Lex Bryant DO Primary care physician Active Start: August 05, 2025 Team Status: Inactive Member Role/Relationship Status Dates Dr. Lex Bryant DO Primary care physician Active Start: August 10, 2025 End: August 10, 2025 Dr. Lex Bryant DO Referring Provider Active Start: August 10, 2025 End: August 10, 2025 Alley Win DIALYSIS CHIEF EQUIPMENT TECHNICIAN, DIALYSIS CHIEF EQUIPMENT TECHNICIAN-C Attending physician Active Start: August 10, 2025 End: August 10, 2025 Team Status: Inactive Member Role/Relationship Status Dates Dr. Lex Bryant DO Primary care physician Active Start: August 12, 2025 End: August 12, 2025 Dr. Lex Bryant DO Referring Provider Active Start: August 12, 2025 End: August 12, 2025 Trina Ungerer , DIALYSIS CHIEF EQUIPMENT TECHNICIAN-C Attending physician Active Start: August 12, 2025 End: August 12, 2025 Team Status: Active Member Role/Relationship Status Dates Dr. Lex Bryant DO Primary care physician Active Start: August 12, 2025 Tirna Ungerer , DIALYSIS CHIEF EQUIPMENT TECHNICIAN-C Attending physician Active Start: August 12, 2025 Trina Ungerer , DIALYSIS CHIEF EQUIPMENT TECHNICIAN-C Referring Provider Active Start: August 12, 2025 Team Status: Active Member Role/Relationship Status Dates Dr. Lex Bryant DO Primary care physician Active Start: May 09, 2025 Dr. Capo Xiong MD Attending physician Active Start: May 09, 2025 Team Status: Inactive Member Role/Relationship Status Dates Dr. Lex Bryant DO Primary care physician Active Start: May 10, 2025 End: May 10, 2025 Alley Win DIALYSIS CHIEF EQUIPMENT TECHNICIAN, DIALYSIS CHIEF EQUIPMENT TECHNICIAN-C Attending physician Active Start: May 10, 2025 End: May 10, 2025 Alley Win DIALYSIS CHIEF EQUIPMENT TECHNICIAN, DIALYSIS CHIEF EQUIPMENT TECHNICIAN-C Referring Provider Active Start: May 10, 2025 End: May 10, 2025 Team Status: Inactive Member Role/Relationship Status Dates Dr. Lex Bryant DO Primary care physician Active Start: May 13, 2025 End: May 13, 2025 Dr. Lex Bryant DO Referring Provider Active Start: May 13, 2025 End: May 13, 2025 Alley Win DIALYSIS CHIEF EQUIPMENT TECHNICIAN, DIALYSIS CHIEF EQUIPMENT TECHNICIAN-C Attending physician Active Start: May 13, 2025 End: May 13, 2025 Team Status: Inactive Member Role/Relationship Status Dates Dr. Lex Bryant DO Primary care physician Active Start: June 03, 2025 End: June 03, 2025 Dr. Lex Bryant DO Referring Provider Active Start: June 03, 2025 End: June 03, 2025 Dr. Em Torres MD Attending physician Active Start: June 03, 2025 End: June 03, 2025 Team Status: Inactive Member Role/Relationship Status Dates Dr. Lex Bryant DO Primary care physician Active Start: June 17, 2025 End: June 17, 2025 Dr. Lex Bryant DO Referring Provider Active Start: June 17, 2025 End: June 17, 2025 SKYLA George Attending physician Active Start: June 17, 2025 End: June 17, 2025 Team Status: Inactive Member Role/Relationship Status Dates Dr. Lex Bryant DO Primary care physician Active Start: June 24, 2025 End: June 24, 2025 Dr. Lex Bryant DO Referring Provider Active Start: June 24, 2025 End: June 24, 2025 Dr. New Ibrahim DO Attending physician Active Start: June 24, 2025 End: June 24, 2025 Team Status: Inactive Member Role/Relationship Status Dates Dr. Lex Bryant DO Primary care physician Active Start: June 24, 2025 End: June 24, 2025 Dr. Lex Bryant DO Referring Provider Active Start: June 24, 2025 End: June 24, 2025 Dr. Em Torres MD Attending physician Active Start: June 24, 2025 End: June 24, 2025 Team Status: Inactive Member Role/Relationship Status Dates Dr. Lex Bryant DO Primary care physician Active Start: July 26, 2025 End: July 26, 2025 Dr. New Ibrahim DO Attending physician Active Start: July 26, 2025 End: July 26, 2025 Dr. New Ibrahim DO Referring Provider Active Start: July 26, 2025 End: July 26, 2025 Team Status: Inactive Member Role/Relationship Status Dates Dr. Lex Bryant DO Primary care physician Active Start: July 26, 2025 End: July 26, 2025 Dr. Lex Bryant DO Referring Provider Active Start: July 26, 2025 End: July 26, 2025 Dr. Samantha Arango DO Attending physician Acti ve Start: July 26, 2025 End: July 26, 2025 Team Status: Inactive Member Role/Relationship Status Dates Dr. Lex Bryant DO Primary care physician Active Start: July 30, 2025 End: July 30, 2025 Dr. Lex Bryant DO Referring Provider Active Start: July 30, 2025 End: July 30, 2025 Dr. Capo iXong MD Attending physician Active Start: July 30, 2025 End: July 30, 2025 Team Status: Inactive Member Role/Relationship Status Dates Dr. Lex Bryant DO Primary care physician Active Start: July 30, 2025 End: July 30, 2025 Dr. Em Torres MD Attending physician Active Start: July 30, 2025 End: July 30, 2025 Dr. Em Torres MD Referring Provider Active Start: July 30, 2025 End: July 30, 2025 Team Status: Inactive Member Role/Relationship Status Dates Dr. Lex Bryant DO Primary care physician Active Start: August 04, 2025 End: August 04, 2025 Dr. New Ibrahim DO Nurse Practitioner Active Start: August 04, 2025 End: August 04, 2025 Dr. Em Torres MD Attending physician Active Start: August 04, 2025 End: August 04, 2025 Dr. Em Torres MD Referring Provider Active Start: August 04, 2025 End: August 04, 2025 Team Status: Inactive Member Role/Relationship Status Dates Dr. Lex Bryant DO Primary care physician Active Start: August 05, 2025 End: August 05, 2025 Dr. Lex Bryant DO Referring Provider Active Start: August 05, 2025 End: August 05, 2025 Dr. Em Torres MD Attending physician Active Start: August 05, 2025 End: August 05, 2025 Team Status: Active Member Role/Relationship Status Dates Dr. New Ibrahim DO Attending physician Active Start: August 05, 2025 Dr. New Ibrahim DO Referring Provider Active Start: August 05, 2025 Dr. Lex Bryant DO Primary care physician Active Start: August 05, 2025 Team Status: Inactive Member Role/Relationship Status Dates Dr. Lex Bryant DO Primary care physician Active Start: August 10, 2025 End: August 10, 2025 Dr. Lex Bryant DO Referring Provider Active Start: August 10, 2025 End: August 10, 2025 Alley Walden NP, DIALYSIS CHIEF EQUIPMENT TECHNICIAN-C Attending physician Active Start: August 10, 2025 End: August 10, 2025 Team Status: Inactive Member Role/Relationship Status Dates Dr. Lex Bryant DO Primary care physician Active Start: August 12, 2025 End: August 12, 2025 Dr. Lex Bryant DO Referring Provider Active Start: August 12, 2025 End: August 12, 2025 Trina Mcconnell DIALYSIS CHIEF EQUIPMENT TECHNICIAN-C Attending physician Active Start: August 12, 2025 End: August 12, 2025 Team Status: Inactive Member Role/Relationship Status Dates Dr. Lex Bryant DO Primary care physician Active Start: August 12, 2025 End: August 12, 2025 Trina Mcconnell , DIALYSIS CHIEF EQUIPMENT TECHNICIAN-C Attending physician Active Start: August 12, 2025 End: August 12, 2025 Trina Mcconnell DIALYSIS CHIEF EQUIPMENT TECHNICIAN-C Referring Provider Active Start: August 12, 2025 End: August 12, 2025 Team Status: Active Member Role/Relationship Status Dates Dr. Lex Bryant DO Primary care physician Active Start: August 24, 2025 Dr. Em Torres MD Attending physician Active Start: August 24, 2025 Dr. Em Torres MD Referring Provider Active Start: August 24, 2025 Reason for Visit (unrecogniz ed section and content) Reason Comments Endometrial Cancer Specialty Diagnoses / Procedures Referred By Joce t Referred To Contact Gynecologic Oncology Diagnoses LAV BSO CYSTO Procedures MS OFFICE/OUTPATIENT NEW HIGH MDM 60-74 MINUTES Jose Luis Anton [address] [place] [address] [facility] [address] [place] [address] Referral ID Status Reason Start Date Expiration Date V isits Requested Visits Authorized [id number] Pending Review 04/16/2023 04/15/2024 1 1 Reason Onset Date Comments surgery scheduling 04/25/2023 Scheduled at [facility] Reason Comments Post-op Visit Reason Comments Follow-up Pt has no concerns Reason Comments Endometrial Cancer INFORMATION SOURCE (unrecogn ized section and content) DATE CREATED AUTHOR 08/19/2023 [facility] ([place]) DATE CREATED AUTHOR AUTHOR'S ORGANIZ ATION 07/23/2024 [facility] DATE CREATED AUTHOR AUTHOR'S ORGANIZ ATION 08/28/2025 [facility] FOR RECORDS PERTAINING TO PATIENTS WHO ARE OR HAVE BEEN ENROLLED IN A CHEMICAL DEPENDENCY/SUBSTANCEABUSE PROGRAM, SOME INFORMATION MAY BE OMITTED. This clinical summary was aggregated from multiple sources. Caution should be exercised in using it in the provision of clinical care. This summary normalizes information from multiple sources, and as a consequence, information in this document may materially change the coding, format and clinical context of patient data. In addition, data may be omitted in some cases. CLINICAL DECISIONS SHOULD BE BASED ON THE PRIMARY CLINICAL RECORDS. [email or web address] provides no warranty or guarantee of the accuracy or completeness of information in this document.
[2025-10-13] MEDS: Lactated Ringers 1,000 ML 15 ML IV (06:38)
--- NOTE | 2025-10-13 06:42 | PRE.ANES_ITS ---
ASA Classification* ASA Classification ASA Classification: 2 Assessment & Plan Anesthesia* Anesthesia Assessment Anesthesia Assessment: Discussed sedation and/or anesthesia options, risks, benefits, and alternatives with patient/parents/legal guardian/POA. Questions invited. The patient/parents/legal guardian/POA seems to understand and agrees to proceed with anesthesia plan. Reviewed the physical assessment, medical history, allergy history and patient home medications list prior to surgery/procedure/anesthetic and documented any changes. Performed airway and anesthesia risk assessments. Anesthesia Type Anesthesia Type: MAC Anesthesia Focused Assessment* Temperature: 98.3 F Pulse Rate: 87 Blood Pressure: 121/72 Respiratory Rate: 18 Pulse Ox: 100 Airway Assessment Mouth opens: >3 cm Mallampati Score: II Labs Anesthesia Preop lab: CBC WBC, (4.4-11.0) 3.6 K/mm3 L 09/14/25, 09:25 RBC, (4.2-5.4) 3.22 M/mm3 L 09/14/25, 09:25 Hgb, (12.0-15.0) 9.8 g/dL L 09/14/25, 09:25 Hct, (37-47) 29.7 % L 09/14/25, 09:25 Plt Count, (150-450) 201 K/mm3 09/14/25, 09:25 CHEMISTRY Potassium, (3.3-5.1) 3.8 mmol/L 09/30/25, 12:36 Sodium, (133-145) 139 mmol/L 09/30/25, 12:36 Magnesium, (1.5-2.2) 1.3 mg/dL L 08/05/25, 14:25 Phosphorus, (2.7-4.5) 2.6 mg/dL L 08/05/25, 14:25 BUN, (4-19) 21 mg/dL H 09/30/25, 12:36 Creatinine, (0.70-1.20) 0.79 mg/dL 09/30/25, 12:36 Glucose, (70-99) 135 mg/dL H 09/30/25, 12:36 POC Glucose, (74-106) 109 mg/dL H 04/02/23, 08:44 COAG PT, (11.7-14.9) 13.6 SECONDS 04/01/25, 10:22 Pre-Assessment Diagnosis/Proposed Procedure Planned Operative Procedure(s): COLONOSCOPY Anesthesia History Anesthesia History - wrapper selector: Anesthesia History - wrapper selector Hx Hospitalization Yes: RIGHT MASTECTOMY 09-1310/08/25 10:29 Any Problems With Anesthesia No 10/08/25 10:29 Cholinesterase deficiency No 10/08/25 10:29 You/Your Family Experience No 10/08/25 10:29 fever (hyperthermia) with Relationship Recent Exposure to Contagious No 10/13/25 06:17 Disease Does patient have nerve No 10/08/25 10:29 stimulator Patient instructed to have device shut off --Does patient have Pacemaker No 10/13/25 06:17 or ICD? When Was Last Pacemaker Check QUESTION #4 FULL TEXT: You/Your Family Experience fever (hyperthermia) with Anesthesia Last Oral Intake Last Oral intake: Last Oral Intake NPO since 05:30 10/13/25 06:17 Meds taken in AM with sips of Yes 10/13/25 06:17 water? Meds patient instructed to amlodipine, anastrazole 10/13/25 06:17 take am of surgery PONV PONV - wrapper selector: PONV - wrapper selector Female Yes 10/08/25 10:29 HX of Motion Sickness No 10/08/25 10:29 HX of N/V After Surgery No 10/08/25 10:29 Non-Smoker Yes 10/08/25 10:29 Duration of Surgery greater No 10/08/25 10:29 than 60 minutes Number of Risk Factors 2 10/08/25 10:29 PONV Score Moderate Risk 10/08/25 10:29 Height & Weight Height & Weight: Anesthesia: Height & Weight Height 5 ft 6 in 10/13/25 06:17 Weight: 73 kg 10/13/25 06:17 Body Mass Index (BMI) 25.9 10/13/25 06:17 Respiratory Assessment Respiratory Assessment - wrapper selector: Respiratory Tract Infection Hx - wrapper selector Hx Respiratory Tract Infection No 10/08/25 10:29 STOP Sleep Apnea STOP Sleep Apnea - wrapper selector: STOP Sleep Apnea - wrapper selector Hx Hypertension Yes: ON MEDS 10/08/25 10:29 Hx Sleep Apnea No 10/08/25 10:29 CPAP BIPAP Do you snore loudly (louder No 10/08/25 10:29 than talking or can be heard Do you often feel tired/ No 10/08/25 10:29 fatigued/ sleepy during daytime? Has anyone observed you stop No 10/08/25 10:29 breathing during sleep? STOP Results Negative 10/08/25 10:29 QUESTION #5 FULL TEXT : Do you snore loudly (louder than talking or can be heard through closed doors)? 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 Specify any problems Hx of Preganancy in last 3 No 10/08/25 10:29 Months Nurse Filling Out Transfusion VCHRISTIN 10/08/25 10:29 & Questions: Date: 10/08/25 10/08/25 10:29 Time: 10:31 10/08/25 10:29 Patient unable to answer at this time (ie. confused, unrespo /Reproduction History /Reproductive History - wrapper selector: /Reproductive Hx- wrapper selector Hx Now No 10/08/25 10:29 Gestational Age (in weeks): EDC: Hx Hx Para Hx Section SAB No 10/08/25 10:29 Does the father of the baby or his family experience fever w Father of the baby Malignant Hypertension history comment Active Medications Active Medications: Current Medications Generic Name Dose Route Start Last Admin Trade Name Freq PRN Reason Stop Dose Admin Lactated Ringer's 1,000 mls @ 15 mls/hr 10/13/25 06:15 10/13/25 06:38 IV 15 mls/hr .Q48H MIGUEL A Administration Sodium Chloride 10 - 40 ml 10/13/25 06:37 0.9% Saline Lock 10 Ml Syringe IV UD PRN Port-a-Cath (VAD)/R Port Flush Sodium Chloride 10 - 40 ml 10/13/25 06:37 0.9 % Nacl (Sterile) Posiflush 10 Ml IV UD PRN Port access or dressing change [facility] Medical History (Updated 10/08/25 @ 10:29 by Loulou Tom) History of Holter monitoring History of flexible sigmoidoscopy Localized swelling of both lower legs At high risk for deep venous thrombosis HER2-positive carcinoma of breast Generalized weakness 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 Blood in urine Rectal bleeding Diarrhea due to drug Prerenal azotemia Dysuria Anemia due to chronic blood loss Gastric reflux Acid reflux Edema of both lower legs Mass in the abdomen Hypomagnesemia Diarrhea Encounter for chemotherapy management Abnormal CT of the abdomen Port-A-Cath in place Anxiety Bladder disease History of diverticulitis History of echocardiogram Cancer of right female breast Encounter for education Wears hearing aid Wears glasses Wears contact lenses Post-menopausal Cancer Back pain Migraine headache Non-smoker History of edema History of stress test Cardiology follow-up encounter Hx of vaginal delivery Mitral valve prolapse Chronic headaches Back problem Anemia Arthritis Hypertension Home Medications ?Medication ?Instructions ?Recorded ?Last Taken ?Type vibegron 75 mg tablet (Gemtesa) 75 mg PO DAILY 3 10/12/25 History acetaminophen 500 mg tablet 500 mg PO Q6H PRN pain Unknown History (Tylenol Extra Strength) amlodipine 5 mg tablet 5 mg PO QDAY #90 tabs 10/13/25 Rx potassium chloride 20 mEq 20 meq PO BID #60 tabs 08/1210/12/25 Rx tablet,extended release(part/cryst) cholecalciferol (vitamin D3) 25 25 mcg PO QDAY 5 10/12/25 History mcg (1,000 unit) capsule omega 7-xaz-wdg-fish oil 300 1 cap PO QDAY 09/10/25 History mg-1,000 mg capsule (Fish Oil) Diltiazem 10mg/Lidocaine 50mg 1 supp IN QDAY hemorrhoi ds #30 supp 09/14/25 10/08/25 Rx Suppository 30 supp suppository spironolactone 25 mg tablet 25 mg PO DAILY #90 tabs 10/12/25 Rx anastrozole 1 mg tablet 1 mg PO DAILY 10/08/2510/13 History Allergy/AdvReac Type Severity Reaction Status Date / Time No Known Allergies Allergy Verified 10/13/25 06:14 Family History Mother Diabetes Hypertension Osteoarthritis Colon cancer Grandfather Heart disease Sister Lupus Fibromyalgia Sister , December 2022 from post op PE Endometrial cancer Father Cancer prostate. Surgical History History of lymph node dissection of right axilla S/P right mastectomy History of renal stent Hx of cystoscopy Hx of surgical procedure Status post total hysterectomy and bilateral salpingo-oophorectomy S/P cystoscopy Hx of right breast biopsy Hx of colonoscopy History of orthopedic surgery History of excision of pilonidal cyst Social History Smoking Status: Never smoker alcohol intake: never substance use type: does not use caffeine: Yes what type of physical activity do you participate in: walking frequency: 3-4 times per week seatbelt use: always do you feel safe at home: Yes additional social history: -Dony Review of Systems (Anesthesia) ROS Narrative System reviewed and no additional complaints, except as documented.
--- NOTE | 2025-10-13 07:00 | COLBX_PTH ---
PATIENT: KATHY URIAS LOC: EN U#:[id number] AGE/SX: 70/F ROOM: RE10/13/[address]: Dr. Patrick Peres DO : 1955 BED: DIS: 10/13/2025 SPEC #: [id number] RECD: 10/13/25 08:11 STATUS: EREN BENITEZ #: [id number] TERESA: 10/13/25 07:[address]: Patrick Peres DEPT: SURGICAL PATHOLOGY RECD BY: Jed Myers ENTERED: 10/13/25 10:41 SP TYPE: COLON BX MATA DR: Dr. Lex Madsen DO Tissues: A - Sigmoid colon biopsy B - Rectum, NOS Procedures: Surgery Specimen Level IV HEADER OPERATION: Colonoscopy with biopsy and electro hemostasis PRE-OP DIAGNOSIS: Rectal bleeding, hemorrhoid TISSUE SUBMITTED: A. Sigmoid colon, biopsy, B. Rectum, biopsy MICROSCOPIC DIAGNOSIS A. Colon, sigmoid, biopsy: - Colonic mucosa with lamina propria edema and dilated thin-walled vessels. B. Rectum, biopsy: - Colorectal mucosa with mild lamina propria edema and prolapse changes. MICROSCOPIC DESCRIPTION Slides are reviewed. GROSS DESCRIPTION A. Received is one container labeled with the patient name and designated Sigmoid colon biopsy. The specimen consists of five irregular fragments of yung tissue that measure 0.2 to 0.4 cm. The specimen is totally submitted in one cassette. B. Received is one container labeled with the patient name and designated Rectum biopsy. The specimen consists of four irregular fragments of yung tissue maximus measure 0.2 to 0.4 cm. The specimen is totally submitted in one cassette. SC' 10/13/2025 CPT:29134q7
--- NOTE | 2025-10-13 07:07 | PCM.HP.STD ---
HPI - General General Date of Admission: 10/13/25 Date of Service: 10/13/25 Chief Complaint: lower gi bleeding HPI Narrative LYSSA URIAS, is a 70 F who presents [ Chief Complaint: Rectal bleeding OV 03/17/2025 for rectal bleeding following APC for angiodysplasias in December 2024.) mesalamine suppositories but worsened after discontinuation. CT 02/12/2025: No wall thickening of the rectum. Diffuse hepatic atrophy with fatty infiltration. LFTs: AST 61, ALP 128 and ALT 36. Last office visit 06/17/2025 for follow-up. Continues with mesalamine suppositories. Recommendation to continue mesalamine suppositories and then discontinue in 1 month. Transaminitis stable likely multifactorial related to hepatic steatosis and medication. OV 09/14/2025 - Still having daily rectal bleeding with bowel movements - Denies anal pain, cannot feel her hemorrhoid - Discontinue mesalamine suppositories - Feels bleeding has improved overall. 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 Blood in urine Rectal bleeding Diarrhea due to drug Prerenal azotemia Dysuria Anemia due to chronic blood loss Gastric reflux Acid reflux Edema of both lower legs Mass in the abdomen Hypomagnesemia Diarrhea Encounter for chemotherapy management Abnormal CT of the abdomen Port-A-Cath in place Anxiety Bladder disease History of diverticulitis History of echocardiogram Cancer of right female breast Encounter for education Wears hearing aid Wears glasses Wears contact lenses Post-menopausal Cancer Back pain Migraine headache Non-smoker History of edema History of stress test Cardiology follow-up encounter Hx of vaginal delivery Mitral valve prolapse Chronic headaches Back problem Anemia Arthritis Hypertension Home Medications ?Medication ?Instructions ?Recorded ?Last Taken ?Type vibegron 75 mg tablet (Gemtesa) 75 mg PO DAILY 03/13/23 10/12/25 History acetaminophen 500 mg tablet 500 mg PO Q6H PRN pain 08/13/24 Unknown History (Tylenol Extra Strength) amlodipine 5 mg tablet 5 mg PO QDAY #90 tabs 07/30/25 10/13/25 Rx potassium chloride 20 mEq 20 meq PO BID #60 tabs 08/12/25 10/12/25 Rx tablet,extended release(part/cryst) cholecalciferol (vitamin D3) 25 25 mcg PO QDAY 09/10/25 10/12/25 History mcg (1,000 unit) capsule omega 4-gar-bsw-fish oil 300 1 cap PO QDAY 09/10/25 10/09/25 History mg-1,000 mg capsule (Fish Oil) Diltiazem 10mg/Lidocaine 50mg 1 supp [place] QDAY hemorrhoids #30 supp 09/14/25 10/08/25 Rx Suppository 30 supp suppository spironolactone 25 mg tablet 25 mg PO DAILY #90 tabs 09/27/25 10/12/25 Rx anastrozole 1 mg tablet 1 mg PO DAILY 10/08/25 10/13/25 History Allergy/AdvReac Type Severity Reaction Status Date / Time No Known Allergies Allergy Verified 10/13/25 06:14 Family History Mother Diabetes Hypertension Osteoarthritis Colon cancer Grandfather Heart disease Sister Lupus Fibromyalgia Sister , December 2022 from post op PE Endometrial cancer Father Cancer prostate. Surgical History History of lymph node dissection of right axilla S/P right mastectomy History of renal stent Hx of cystoscopy Hx of surgical procedure Status post total hysterectomy and bilateral salpingo-oophorectomy S/P cystoscopy Hx of right breast biopsy Hx of colonoscopy History of orthopedic surgery History of excision of pilonidal cyst Social History Smoking Status: Never smoker alcohol intake: never substance use type: does not use caffeine: Yes what type of physical activity do you participate in: walking frequency: 3-4 times per week seatbelt use: always do you feel safe at home: Yes additional social history: -Dony ROS Constitutional Constitutional: Denies fatigue, fever(s), poor appetite, weight gain or weight loss Gastrointestinal Gastrointestinal: Denies belching, bloating, change in bowel habits, change in stool character, chewing difficulty, coffee ground emesis, constipation, cramping, diarrhea, dyspepsia, dysphagia, early satiety, excessive flatus, fecal incontinence, heartburn, hematemesis, hematochezia, hemorrhoids, loose stools, melena, nausea, odynophagia, rectal bleeding, tenesmus, vomiting or weight changes Patient's Goals Of Care . What would you like to achieve or improve as a result of your hospital stay?: none Vital Signs Vital Signs Vital Signs: 10/13/25 06:17 10/13/25 06:17 10/13/25 06:17 Temperature 98.3 F Temperature Source Temporal Pulse Rate 87 Respiratory Rate 18 Respiratory Pattern Normal Blood Pressure 121/72 H Blood Pressure Mean 88 Blood Pressure Source Monitor Blood Pressure Position Semi-Fowlers Blood Pressure Location Left Arm Baseline BP 121/72 Pulse Ox 100 Oxygen Delivery Method Room Air 10/13/25 06:48 Temperature 98.3 F Temperature Source Pulse Rate 87 Respiratory Rate 18 Respiratory Pattern Blood Pressure 121/72 H Blood Pressure Mean Blood Pressure Source Blood Pressure Position Blood Pressure Location Baseline BP Pulse Ox 100 Oxygen Delivery Method Weight Weight: 160 lb 14.999 oz Body Mass Index (BMI) 25.9 Physical Exam Const alert, oriented x3, no apparent distress and healthy appearing General Appearance: cooperative GI normal to inspection, nondistended, normoactive bowel sounds, soft to palpation, non-tender and non-distended Percussion: normal to percussion Rectal Exam: deferred Assessment & Plan Assessment/Plan (1) Lower gastrointestinal bleeding: PLAN: Assessment and Plan Assessment and Plan (1) Rectal bleeding: Status: Acute (2) Hemorrhoid: Status: Acute Plan: Lyssa is a 70-year-old female patient with past medical history of hypertension, MVP, breast cancer, uterine cancer, hemorrhoids and rectal bleeding here today for follow-up. Patient established with GI office in December 2024 due to rectal bleeding. She underwent sigmoidoscopy which demonstrated hemorrhoids and multiple large diffuse angiodysplastic lesions in the rectum which were treated with APC. Following her sigmoidoscopy she continued to have rectal bleeding. She was started on mesalamine suppositories which did improve the frequency however she still continues to have rectal bleeding. She is no longer on the mesalamine suppositories and has rectal bleeding once per day. Patient also with lower abdominal cramping. Exact etiology of the rectal bleeding is unclear at this time but but the multifactorial from history of pelvic radiation, hemorrhoids and angiodysplasias. I recommended diltiazem/lidocaine suppositories. I also prescribed dicyclomine for intermittent abdominal cramping. She plans to have blood work done today and will continue to monitor her hemoglobin and transaminases. - Trial diltiazem/lidocaine suppositories - Start dicyclomine as needed for abdominal cramping - Plans to have CBC and CMP done today - Follow-up ]
--- NOTE | 2025-10-13 07:56 | OP.COLON_ITS ---
Patient Name: Lyssa Vasquez Procedure Date: 10/13/2025 7:24 AM Date of : 1955 Age: 70 Procedure: Colonoscopy Indications: Hematochezia Providers: Patrick Peres DO Referring MD: Lex Madsen Medicines: Monitored Anesthesia Care Patient Profile: This is a 70 year old female. Refer to note in patient chart for documentation of history and physical. Last Colonoscopy: within the past 3 years. Complications: No immediate complications. Procedure: Pre-Anesthesia Assessment: - Prior to the procedure, a History and Physical was performed, and patient medications and allergies were reviewed. The patient is competent. The risks and benefits of the procedure and the sedation options and risks were discussed with the patient. All questions were answered and informed consent was obtained. Patient identification and proposed procedure were verified by the physician in the pre-procedure area. Mental Status Examination: alert and oriented. Airway Examination: normal oropharyngeal airway and neck mobility. Respiratory Examination: clear to auscultation. CV Examination: normal. Prophylactic Antibiotics: The patient does not require prophylactic antibiotics. Prior Anticoagulants: The patient has taken no anticoagulant or antiplatelet agents except for NSAID medication. ASA Grade Assessment: II - A patient with mild systemic disease. After reviewing the risks and benefits, the patient was deemed in satisfactory condition to undergo the procedure. The anesthesia plan was to use monitored anesthesia care (MAC). Immediately prior to administration of medications, the patient was re-assessed for adequacy to receive sedatives. The heart rate, respiratory rate, oxygen saturations, blood pressure, adequacy of pulmonary ventilation, and response to care were monitored throughout the procedure. The physical status of the patient was re-assessed after the procedure. After I obtained informed consent, the scope was passed under direct vision. Throughout the procedure, the patient's blood pressure, pulse, and oxygen saturations were monitored continuously. The colonoscope was introduced through the anus and advanced to the cecum, identified by appendiceal orifice and ileocecal valve. The colonoscopy was performed without difficulty. The patient tolerated the procedure well. The quality of the bowel preparation was adequate. The ileocecal valve, appendiceal orifice, and rectum were photographed. Scope In: 7:32:58 AM Scope Withdrawal Time 0 hours 14 minutes 19 seconds Scope Out: 7:51:37 AM Total Procedure Duration Time 0 hours 18 minutes 39 seconds Findings: The perianal and digital rectal examinations were normal. Multiple large localized angiodysplastic lesions with bleeding were found in the rectum, in the recto-sigmoid colon and in the sigmoid colon. Coagulation for hemostasis using argon plasma at 0.3 liters/minute and 30 cody was successful. Estimated blood loss was minimal. Multiple angiodysplastic lesions without bleeding were found in the recto-sigmoid colon. Coagulation for bleeding prevention using argon plasma at 0.3 liters/minute and 20 cody was successful. Biopsies were taken with a cold forceps for histology. Verification of patient identification for the specimen was done. Estimated blood loss was minimal. Retroflexion in the rectum was not performed due to anatomy. The exam was otherwise without abnormality. Impression: - Multiple bleeding colonic angiodysplastic lesions. Treated with argon plasma coagulation (APC). - Multiple non-bleeding colonic angiodysplastic lesions. Treated with argon plasma coagulation (APC). Biopsied. - The examination was otherwise normal. Recommendation: - Discharge patient to home. - Resume previous diet. - Continue present medications. - Await pathology results. - Repeat colonoscopy in 4 months for surveillance. Procedure Code(s): --- Professional --- 39880, Colonoscopy, flexible; with control of bleeding, any method CPT copyright 2021 [employer]. All rights reserved. The codes documented in this report are preliminary and upon sweet pickled fruit maker review may be revised to meet current compliance requirements. Patrick Peres DO 10/13/2025 7:56:35 AM This report has been signed electronically. Number of Addenda: 0 Note Initiated On: 10/13/2025 7:24 AM
--- NOTE | 2025-10-13 07:57 | OP.PROVAT_ITS ---
10/13/2025 Lex Madsen Re : Colonoscopy procedure for Lyssa Vasquez Dear Dr. Madsen This procedure was performed on Monday, October 13, 2025. My impressions and recommendations are as follows: Impressions : - Multiple bleeding colonic angiodysplastic lesions. Treated with argon plasma coagulation (APC). - Multiple non-bleeding colonic angiodysplastic lesions. Treated with argon plasma coagulation (APC). Biopsied. - The examination was otherwise normal. Recommendations : - Discharge patient to home. - Resume previous diet. - Continue present medications. - Await pathology results. - Repeat colonoscopy in 4 months for surveillance. My findings are described in the full procedure note, which is enclosed. If I can be of further assistance, please feel free to contact me at . Sincerely, Patrick Friend, 10/13/2025 7:56:35 AM This report has been signed electronically.
--- NOTE | 2025-10-13 07:59 | PCM.POST.ANE ---
Anesthesia: Postop Eval I Current Vital Signs Temperature: 96.8 F Pulse Rate: 80 Blood Pressure: 110/60 Respiratory Rate: 18 Pulse Ox: 98 Oxygen Delivery Method: Room Air Assessment Airway patent: Yes Spontaneous unlabored respirations: Yes Mental status: Awake and Calm nausea: No Vomiting: No Anesthesia Complication: No Fluid Hydration Crystalloid volume administer (ml): 150 Total IV fluid infused: 150 Progress Note Anesthesia document: Postop Eval 1 completed: Yes
[2025-10-13] MEDS: 0.9% Saline Lock 10 ML Syringe IV (08:19)
--- NOTE | 2025-10-13 08:29 | POSTOPAN2_ITS ---
Anesthesia Postop Eval I Sum Postop Eval Completion status Anesthesia document: Postop Eval 1 completed: Yes Anesthesia Postop Eval I Summary Anesthesia Postop Eval I Summary: Anesthesia Postop Eval I: Assessment Summary Airway patent Yes 10/13/25 07:59 ENTRY [email or web address] Spontaneous unlabored Yes 10/13/25 07:59 ENTRY OPERATOR.[email or web address] respirations Mental status Awake,Calm 10/13/25 07:59 ENTRY [email or web address] nausea No 10/13/25 07:59 ENTRY OPERATOR.[email or web address] Vomiting No 10/13/25 07:59 ENTRY OPERATOR.[email or web address] Anesthesia Postop Eval I: Fluid Summary Crystalloid volume administer 150 10/13/25 07:59 ENTRY [email or web address] (ml) Colloids volume administered ( ml) Blood Product volume administered (ml) Total IV fluid infused 150 10/13/25 07:59 ENTRY OPERATOR.KACIE Anesthesia Postop Eval I: Summary Notes Anesthesia Complication No 10/13/25 07:59 ENTRY OPERATOR.[email or web address] Anesthesia Complication Comment: Post-operative progress note Anesthesia: Postop Eval II Evaluation Mental status: Awake Pain Level: 0 nausea: No Vomiting: No
--- NOTE | 2025-10-13 08:29 | PCM.POSTANE2 ---
Anesthesia Postop Eval I Sum Postop Eval Completion status Anesthesia document: Postop Eval 1 completed: Yes Anesthesia Postop Eval I Summary Anesthesia Postop Eval I Summary: Anesthesia Postop Eval I: Assessment Summary Airway patent Yes 10/13/25 07:59 BINDERY PRODUCTION [email or web address] Spontaneous unlabored Yes 10/13/25 07:59 BINDERY PRODUCTION MANAGER.[email or web address] respirations Mental status Awake,Calm 10/13/25 07:59 BINDERY PRODUCTION [email or web address] nausea No 10/13/25 07:59 BINDERY PRODUCTION [email or web address] Vomiting No 10/13/25 07:59 BINDERY PRODUCTION MANAGER.[email or web address] Anesthesia Postop Eval I: Fluid Summary Crystalloid volume administer 150 10/13/25 07:59 BINDERY PRODUCTION [email or web address] (ml) Colloids volume administered ( ml) Blood Product volume administered (ml) Total IV fluid infused 150 10/13/25 07:59 BINDERY PRODUCTION MANAGER.[email or web address] Anesthesia Postop Eval I: Summary Notes Anesthesia Complication No 10/13/25 07:59 BINDERY PRODUCTION MANAGER.[email or web address] Anesthesia Complication Comment: Post-operative progress note Anesthesia: Postop Eval II Evaluation Mental status: Awake Pain Level: 0 nausea: No Vomiting: No
== END 2025-10-13 08:38 | disposition home or self-care (01) ==
LOC: EN 05:53 → AC 05:54
PROVIDERS: PCP Family Medicine; Referring Provider Family Medicine; Visit Provider Internal Medicine Gastroenterology
PROC: 0DJD8ZZ Inspection of Lower Intestinal Tract, Via Natural or Artificial Opening Endoscopic (ICD-10-PCS; CPT 45378; principal; 2025-10-13 06:55)
DX: K55.21 Angiodysplasia of colon with hemorrhage (principal); K62.5 Hemorrhage of anus and rectum; K64.9 Unspecified hemorrhoids; Z79.899 Other long term (current) drug therapy; K21.9 Gastro-esophageal reflux disease without esophagitis; I10 Essential (primary) hypertension; K62.89 Other specified diseases of anus and rectum
CPT/HCPCS: 45380; 45382; 88305; C1889; A4216